=== PATIENT | female | born 1935 | race Caucasian/White ===

== ENCOUNTER 2016-06-04 06:40 | Inpatient (IN) | payer BC, OTHER ==
[2016-05-01 10:40] VITALS: BMI 29.0
--- NOTE | 2016-05-01 11:25 | PAT Medication Instructions ---
Service Date May 01, 2016. Current Home Medication List Aspirin Enteric Coated (Ecotrin Or Generic *), 81 MG PO QAM Atenolol (Tenormin), 50 MG PO QPM Calcium/Vitamin D (Caltrate 600 Plus *), 1 TAB PO QAM Cholecalciferol (Vitamin D3), 1 TAB PO QPM Clonazepam (Klonopin), 1 MG PO TID PRN for Anxiety Denosumab (Prolia), 1 DOSE INJ [id number] Esomeprazole Magnesium (Nexium), 40 MG PO BID Fenofibrate (Tricor ), 134 MG PO QPM Fish Oil (Saunemin-3), 1 CAP PO QAM Ibuprofen (Motrin), 800 MG PO Q8H PRN for PRN Levothyroxine Sodium (Levothyroxine Sodium), 1 TAB PO QAM Lorazepam (Ativan), 0.5 MG PO BID PRN for RN Losartan Potassium (Cozaar), 25 MG PO QPM Nitroglycerin (Nitrostat), 0.4 MG UT PRN Sertraline (Zoloft), 50 MG PO HS Tramadol Hcl (Ultram), 50 MG PO Q6 PRN for Pain Trazodone Hcl (Trazodone), 50 MG PO HS Medication Instructions For Your Scheduled Surgery - Contine as directed: Nitroglycerin (Nitrostat), 0.4 MG UT PRN Denosumab (Prolia), 1 DOSE INJ [id number] - Hold the following medications 2 weeks prior to surgery: Fish Oil (Saunemin-3), 1 CAP PO QAM - Hold the following medications the morning of surgery: Calcium/Vitamin D (Caltrate 600 Plus *), 1 TAB PO QAM Ibuprofen (Motrin), 800 MG PO Q8H PRN for PRN (otherwise okay to continue per surgeon) - Take the following medications the morning of surgery with a sip of water OTHERWISE NOTHING TO EAT OR DRINK AFTER MIDNIGHT: Aspirin Enteric Coated (Ecotrin Or Generic *), 81 MG PO QAM Esomeprazole Magnesium (Nexium), 40 MG PO BID Lorazepam (Ativan), 0.5 MG PO BID PRN Clonazepam (Klonopin), 1 MG PO TID PRN Levothyroxine Sodium (Levothyroxine Sodium), 1 TAB PO QAM Tramadol Hcl (Ultram), 50 MG PO Q6 PRN for Pain (may take if needed up to 4 hours prior to surgery) - Take the following medications as scheduled the night before surgery: Cholecalciferol (Vitamin D3), 1 TAB PO QPM Atenolol (Tenormin), 50 MG PO QPM Trazodone Hcl (Trazodone), 50 MG PO HS Esomeprazole Magnesium (Nexium), 40 MG PO BID Lorazepam (Ativan), 0.5 MG PO BID PRN Clonazepam (Klonopin), 1 MG PO TID PRN Tramadol Hcl (Ultram), 50 MG PO Q6 PRN for Pain - Do not take the following medications the night before surgery: Fenofibrate (Tricor ), 134 MG PO QPM Losartan Potassium (Cozaar), 25 MG PO QPM If you have any questions please call us at [phone] (Elisa Partida PA-C) or [phone] or [phone]
--- NOTE | 2016-05-01 11:58 | DIAGNOSTIC IMAGING REPORT ---
CHEST PREADMISSION(PA/LAT) CLINICAL HISTORY: Preoperative chest COMPARISON STUDY: 07/20/2013 FINDINGS: The heart is enlarged. There is persistent aortic tortuosity. There is a retrocardiac opacity consistent with a hiatal hernia. There is stable left basilar atelectasis/scarring. There is no failure. There is no lobar consolidation. There are no pleural effusions. There is a midthoracic compression which appears old.[ IMPRESSION: No active disease in the chest. Electronically signed by: Atif Contreras M.D. 05/01/2016 11:56 AM
[2016-05-01 12:21] LABS: PROTHROMBIN TIME (PATIENT) 10.6 SECONDS (9.0-12.0)
[2016-05-01 12:27] LABS: BASO ABS # 0.07 K/uL (0-0.2); COMPLETE YES; EOS % 8.5 %; HEMATOCRIT 35.9 % (37-47); IG% 0.1 %; LYMPH % 19.4 %; LYMPH ABS # 1.33 K/uL (1.2-3.4); MEAN CELL VOLUME 86.1 fL (80-100); MEAN CORPUSCULAR HEMOGLOBIN 27.3 pg (25-34); MEAN CORPUSCULAR HGB CONC 31.8 g/dl (32-36); MEAN PLATELET VOLUME 9.5 fL (7.4-10.4); MONO % 7.5 %; NEUT % 63.5 %; PLATELET COUNT 352 K/uL (130-400); RED BLOOD COUNT 4.17 M/uL (4.2-5.4); WHITE BLOOD COUNT 6.84 K/uL (4.8-10.8)
[2016-05-01 12:38] LABS: CALCIUM 9.2 mg/dl (8.5-10.1)
[2016-05-01 12:40] LABS: CREATININE 0.91 mg/dl (0.60-1.20)
[2016-05-01 12:41] LABS: BUN/CREATININE RATIO 27.6 (10-20); POTASSIUM 4.4 mmol/L (3.5-5.1)
[2016-05-01 13:20] LABS: ESTIMATED AVERAGE GLUCOSE 134 mg/dl; HA1C FLAG Normal (Normal)
--- NOTE | 2016-06-03 15:07 | HISTORY & PHYSICAL EXAMINATION ---
DATE OF ADMISSION: 06/04/2016 CHIEF COMPLAINT: Right knee pain. HISTORY OF PRESENT ILLNESS: The patient is a 80-year-old female with known osteoarthritis about her right knee. She has had previous corticosteroid as well as viscosupplementation injections. She continues to have ongoing pain and disability with activities of daily living. She has pain with prolonged weightbearing and standing activities. She has difficulty kneeling, bending or squatting activities. She now desires to proceed with right total knee arthroplasty. PAST MEDICAL HISTORY: Hypertension, thyroid cancer, and acid reflux. PAST SURGICAL HISTORY: Thyroid surgery, appendectomy, and broken arm. MEDICATIONS: Include esomeprazole magnesium 40 mg two times daily, atenolol 50 mg once daily, losartan 25 mg daily, Synthroid 125 mcg daily, trazodone 50 mg at bedtime, sertraline 50 mg daily, tramadol 50 mg q. 6 hours p.r.n. pain, fenofibric acid 135 mg daily, vitamin D 1000 units 2 tablets daily, omega-3 at 1000 mg daily, aspirin 81 mg daily, and Caltrate plus D twice daily. ALLERGIES: No known drug allergies. SOCIAL HISTORY AND REVIEW OF SYSTEMS: Noncontributory. PHYSICAL EXAMINATION: GENERAL: Well-nourished and well-developed elderly female, who appears her stated age. HEENT: Normocephalic and atraumatic, extraocular movements intact, oropharynx pink and moist. NECK: Supple without adenopathy. LUNGS: Clear to auscultation bilaterally. HEART: Regular rate and rhythm. ABDOMEN: Soft, nontender, and nondistended. EXTREMITIES: Upper extremities within normal limits. The right knee has a valgus alignment. She complains primarily of lateral compartment pain. Her range of motion is approximately 0-120 degrees. X-RAYS: X-rays were reviewed. She has a valgus aligned knee. She has bone on bone arthritis of the lateral compartment. ASSESSMENT: Right knee degenerative joint disease. PLAN: Risks versus benefits were discussed. Consent was obtained. The patient's primary care physician is Dr. Roe. Her vegetable trimmer is Dr. Roldan. We will proceed with right total knee arthroplasty upon preoperative workup and medical clearance.
[2016-06-04] VITALS (10 sets, daily range): BP systolic 93–127; BP diastolic 52–84; PULSE 61–78; TEMP 36.4–37; O2SAT 93–97; Ht 165.1 cm; Wt 81.3 kg
[~2016-06-04] VITALS: Ht 165.1 cm; Wt 81.3 kg
[2016-06-04] MEDS: TRANEXAMIC ACID INJ 1,000 MG in SODIUM CHLORIDE 0.9% 100ML 100 ML IV SCH ×2 (06:30→07:58)
[~2016-06-04 06:40] MED LIST: ACETAMINOPHEN 500 MG TAB PO SCH; ASPEC81 PO; ATEN50TA8 PO; CEFAZOLIN 2000 MG/60 ML D5W 60 ML IV SCH; CHOL20007 PO; CLON1TAB3 PO; CLTP PO; CeleBREX 200 MG CAP PO SCH; DEXAMETHASONE 4 MG TAB PO SCH; DNSIS60 INJ; FAMOTIDINE 20 MG TAB PO SCH; FENO134C2 PO; GABAPENTIN 300 MG CAP PO SCH; IBUP-1428 PO; LACTATED RINGER'S 1000ML IV SCH; LACTATED RINGER'S 500 ML IV SCH; LEVO125T4 PO; LORA-741 PO; LOSA1TAB PO; METOCLOPRAMIDE HCL 10 MG TAB PO SCH; MISSING PHYSICIAN SIGNATURE ON ORDER SCH; NITR0.4S UT; NXM/40 PO; OMEG10007 PO; ROPIVACAINE 5MG/ML 30 ML 150 MG, BUPIVACAINE/EPINEPHR 0.5% MPF 30 ML, KETOROLAC TROMETH... INFIL SCH; SERT50TA PO; TRAM-453 PO; TRANEXAMIC ACID INJ 1,000 MG in SODIUM CHLORIDE 0.9% 100ML 100 ML IV SCH; TRAZ50TA35 PO
[2016-06-04] MEDS ORDERED: BUPIVACAINE 0.25% 30 ML VIAL ONE (06:42)
[2016-06-04] MEDS ORDERED: BUPIVACAINE 0.5 % 5 MG/1 ML PF 10ML VIAL ONE (06:42)
--- NOTE | 2016-06-04 07:22 | History & Physical Bridge Note ---
H&P Re-Evaluation Bridge Note: I have examined the patient, reviewed the History & Physical and in the interval since the performance of the History & Physical I have noted the following changes of clinical significance: No changes noted
[2016-06-04] MEDS ORDERED: ONDANSETRON INJ 2 MG/ML 2 ML VIAL ONE (07:24)
[2016-06-04] MEDS ORDERED: PROPOFOL IV EMULSION 10 MG/ML 20 ML VIAL IV ONE (07:24)
[2016-06-04] MEDS ORDERED: MIDAZOLAM HCL 1 MG/ML 2ML VIAL ONE ×2 (07:24)
[2016-06-04] MEDS ORDERED: FENTANYL CITRATE INJ 50 MCG/1 ML 2 ML VIAL ONE (07:24)
[2016-06-04] MEDS ORDERED: LIDOCAINE HCL 2% 2 ML VIAL (20MG/ML) ONE (07:24)
[2016-06-04] MEDS ORDERED: ORTHO JOINT ANESTHETIC ONE (08:14)
[2016-06-04] MEDS ORDERED: KETOROLAC TROMETHAMINE 30 MG/ML VIAL IV. PRN (08:45)
[2016-06-04] MEDS ORDERED: ATROPINE SULFATE 0.1 MG/ML 5ML SYR IV PRN (08:45)
[2016-06-04] MEDS ORDERED: ONDANSETRON INJ 2 MG/ML 2 ML VIAL IV PRN ×2 (08:45→10:00)
[2016-06-04] MEDS ORDERED: HYDROmorphone INJ 2 MG/ML SYR/VIAL IV PRN (08:45)
[2016-06-04] MEDS ORDERED: PHENYLEPHRINE 100MCG/ML 5ML SYR IV PRN (08:45)
[2016-06-04] MEDS ORDERED: EpHEDrine SULFATE INJ 50 MG/ML AMP IV PRN (08:45)
--- NOTE | 2016-06-04 09:15 | [facility] Post Operative Brief Note ---
Immediate Operative Summary Operative Date Jun 04, 2016. Pre-Operative Diagnosis Right knee degenerative joint Disease Post-Operative Diagnosis Right knee degenerative joint Disease Procedure(s) Performed Right Total Knee Arthroplasty Cemented Surgeon Dr. Michael Marquis Seal Delivery Vehicle Officer Surgeon(s) Malik Bangura PA-c Estimated Blood Loss 10 Findings oa and osteoporosis Specimens A: Bone and Tissue right knee Disposition Recovery Room / PACU
--- NOTE | 2016-06-04 09:23 | OPERATIVE REPORT ---
DATE OF OPERATION: 06/04/2016 PREOPERATIVE DIAGNOSIS: Osteoarthritis right knee. POSTOPERATIVE DIAGNOSIS: Osteoarthritis right knee. PROCEDURE: Right total knee arthroplasty. SURGEON: Dr. Marquis. TRANSFER CONTROLLER: Malik Bangura PA-C. ANESTHESIA: Spinal. COMPLICATIONS: None. OPERATION AND FINDINGS: Following induction of spinal anesthesia, the patient's right leg was prepped and draped in the usual sterile manner. Limb was exsanguinated with an Esmarch bandage and tourniquet was inflated to 350 mmHg. A longitudinal incision was made anteriorly. Subcutaneous tissue was sharply dissected. Electrocautery was used for hemostasis. Prepatellar bursa was incised and median parapatellar incision was performed. Patella was everted and the knee was flexed. Fat pad was removed to aid in visualization and the anterior and posterior cruciate ligaments were removed. The medial face of the tibia was cleared of soft tissue first with a Bovie and a Velasquez elevator. This tissue was retracted posteriorly using a blunt Hohmann. A Grande retractor was used to expose the synovium above on the anterior aspect of the femur and this was removed down to bone. The PSI guide was placed on the distal femur and two pins were placed anteriorly and kept in position and two additional pins were placed distally and removed. The distal femoral cutting block was placed in position and the distal femoral cut was used in the +0 setting. Next, the cutting block was removed and the 3 block was placed in the distal end of the femur. Care was taken to ensure appropriate external rotation and feeler gauge was used to ensure no notching would occur. The femoral block was centered on the distal femur and in the medial and lateral direction and was fixed using two bone screws. The gold pins were then removed. The oscillating saw was used to create the bone cuts and the distal femoral cutting block was removed and the reciprocating saw was used to further trim the femoral cuts as well as a deep in the area for the trochlear groove. Next, posterior condyle remnants were removed. Following this, a meniscal clamp and knife were utilized to remove the anterior portion of both medial and lateral meniscus. The proximal tibia PSI guide was placed into position and the proximal tibial cutting guide was screwed into position. The extra medullary alignment guide was utilized to ensure appropriate alignment. The proximal tibia was cut and the proximal tibial cutting block was removed and this bone fragment was removed. The appropriate guide was used to perform the notch cut on the distal femur and a lamina load dispatcher local and a cochlear knife were utilized to finish both medial and lateral meniscectomies to remove any remnants of the posterior or anterior cruciate ligaments. Following this, the distal femoral component was impacted into position and blunt Teri was used to sublux the tibia anteriorly. The proximal tibia was sized and a 3 tibial tray was chosen as the size to be used. This was put into position and appropriate external rotation and a double check with extramedullary alignment guide was performed. The canal for the tibial stem was prepared first with a 17 mm drill and then the punch and a mallet and the trial tibial poly was placed. An 11 was chosen the size to be used. It was brought to extension and the patella was prepared with the patellar reamer. A 33 component was chosen the size to be used. The trial component was placed and knee was taken through a full range of motion and there was found to be no lateral subluxation of the tibia. No lateral release was required. The trials were all removed. The final components were obtained and assembled. Cement was mixed. The knee was thoroughly irrigated and the ortho mix was injected about the knee joint. The final components were cemented into position. After thoroughly suctioning and drying the bone ends, all excess cement was removed. The knee was held in extension while the cement hardened. The wound was irrigated and closed over a Hemovac drain. #1 Vicryl was used to close the extensor mechanism. Subcutaneous tissues closed using 0 Dexon. Skin was closed with tito. Sterile dressing of Adaptic, 4 x 4's, sterile Webril, and Doe was applied. The patient tolerated the procedure well. Recovery room stable. Due to the complex nature of the procedure, the entire surgery was performed with the operational assistance of Malik Bangura PA-C. The observation assistant, under direct supervision, was involved in the actual performance of all aspects of the surgical procedure including hemostasis, tissue retraction and incision, instrument management, patient positioning, and wound closure. I attest to the content of the Intraoperative Record and any orders documented therein. Any exceptio ns are noted below.
[2016-06-04] MEDS ORDERED: MAGNESIUM HYDROXIDE SUSP 30 ML UDC PO PRN (10:00)
[2016-06-04] MEDS ORDERED: MoRPHine SULFATE 2 MG/ML CARP IV PRN (10:00)
[2016-06-04] MEDS ORDERED: BISACODYL 10 MG SUPP PR PRN (10:00)
[2016-06-04] MEDS ORDERED: NITROGLYCERIN 0.4 MG SL PER TAB CHARGE UT PRN (10:00)
[2016-06-04] MEDS ORDERED: TRAMADOL HCL 50 MG TAB PO PRN (10:00)
[2016-06-04] MEDS ORDERED: LORAZEPAM 0.5 MG TAB PO PRN (10:00)
[2016-06-04] MEDS ORDERED: CLONAZEPAM 1 MG TAB PO PRN (10:00)
[2016-06-04] MEDS ORDERED: ZOLPIDEM TARTRATE 5 MG TAB PO PRN (10:00)
[2016-06-04] MEDS ORDERED: ALUMINUM/MAGNESIUM/SIMETH (MAALOX MAX) 30 ML UDC PO PRN (10:00)
[2016-06-04] MEDS ORDERED: DiphenhydrAMINE HCL 50 MG/ML VIAL IV PRN (10:00)
--- NOTE | 2016-06-04 10:10 | DIAGNOSTIC IMAGING REPORT ---
TWO VIEWS RIGHT KNEE CLINICAL HISTORY: Postoperative examination. FINDINGS: AP and crosstable lateral portable views of the right knee are obtained. A right knee arthroplasty is in near anatomic alignment. There has been undersurface remodeling of the patella. No acute fracture is seen. There are expected postoperative changes around the knee including skin clips, a surgical drain, soft tissue edema, and subcutaneous gas. IMPRESSION: Expected postoperative changes status post right knee arthroplasty. No acute fracture is seen. Electronically signed by: Donovan Chester M.D. 06/04/2016 10:08 AM Dictated Date/Time: 06/04/2016 10:08 AM
--- NOTE | 2016-06-04 10:28 | Anesthesiology Progress Note ---
Anesthesia Post Op Note Date & Time Jun 04, 2016 at 10:28 Vital Signs Pain Intensity: 0 Vital Signs Past 12 Hours Date Time Temp Pulse Resp B/P Pulse Ox O2 Delivery O2 Flow Rate FiO2 06/04/16 10:25 36.4 57 14 100/62 94 Nasal Cannula 2 06/04/16 10:19 58 16 06/04/16 10:19 60 16 93 06/04/16 10:18 105/60 06/04/16 10:14 56 14 06/04/16 10:14 55 14 96 06/04/16 10:13 113/63 06/04/16 10:09 58 15 93 06/04/16 10:09 57 15 06/04/16 10:08 59 15 06/04/16 10:08 59 15 06/04/16 10:08 59 15 120/71 91 06/04/16 10:08 59 15 120/71 91 06/04/16 10:03 59 15 06/04/16 10:03 57 15 114/62 96 06/04/16 10:03 59 15 06/04/16 10:03 57 15 114/62 96 06/04/16 09:58 64 16 123/66 92 06/04/16 09:58 65 16 06/04/16 09:58 64 16 123/66 92 06/04/16 09:58 65 16 06/04/16 09:53 59 12 06/04/16 09:53 59 12 130/62 96 06/04/16 09:53 59 12 06/04/16 09:53 59 12 130/62 96 06/04/16 09:50 134/71 06/04/16 09:50 134/71 06/04/16 09:48 65 23 100 06/04/16 09:48 65 23 100 06/04/16 09:48 65 23 06/04/16 09:48 65 23 06/04/16 09:48 36.0 65 16 132/82 95 Mask 10 06/04/16 07:12 36.5 69 20 127/84 95 Room Air Notes Mental Status: alert / awake / arousable, participated in evaluation Pt Amnestic to Procedure: Yes Nausea / Vomiting: adequately controlled Pain: adequately controlled Airway Patency, RR, SpO2: stable & adequate BP & HR: stable & adequate Hydration State: stable & adequate Anesthetic Complications: no major complications apparent
[2016-06-04] MEDS ORDERED: BACITRACIN 50000 UNIT VIAL IR ONE (10:50)
[2016-06-04] MEDS ORDERED: MoRPHine SULFATE 4 MG/ML 1 ML CARP\\VIAL IV PRN (13:00)
[2016-06-04] MEDS ORDERED: MoRPHine SULFATE 10 MG/ML CARP/VIAL IV PRN (13:00)
[2016-06-04] MEDS: D5W AND 1/2NSS + 20MEQ KCL 1,000 ML IV SCH ×2 (13:27→22:23)
[2016-06-04] MEDS: ACETAMINOPHEN 500 MG TAB PO SCH ×2 (14:52→21:37)
[2016-06-04] MEDS: CEFAZOLIN IV 2,000 MG in DEXTROSE 5% 50ML 50 ML IV SCH ×2 (16:35→23:45)
[2016-06-04] MEDS: FERROUS GLUCONATE 324 MG TAB PO SCH (18:13)
[2016-06-04] MEDS: LOSARTAN POTASSIUM 25 MG TAB PO SCH (21:00)
[2016-06-04] MEDS: SENNA 8.6 MG TAB PO SCH (21:32)
[2016-06-04] MEDS: OXYCODONE HCL 10 MG TABCR (OXYCONTIN) PO SCH (21:32)
[2016-06-04] MEDS: DOCUSATE SODIUM 100 MG CAP PO SCH (21:34)
[2016-06-04] MEDS: ASPIRIN 81 MG ECTAB PO SCH (21:36)
[2016-06-04] MEDS: SERTRALINE HCL 50 MG TAB PO SCH (21:38)
[2016-06-04] MEDS: TRAZODONE HCL 50 MG TAB PO SCH (22:07)
[2016-06-05 03:16] VITALS: BP 118/69; PULSE 70; TEMP 36.6; O2SAT 93
[2016-06-05] MEDS: LEVOTHYROXINE 125 MCG TAB PO SCH (05:35)
[2016-06-05 06:10] LABS: HEMATOCRIT 24.8 % (37-47); MEAN CELL VOLUME 86.4 fL (80-100); MEAN CORPUSCULAR HEMOGLOBIN 27.9 pg (25-34); MEAN CORPUSCULAR HGB CONC 32.3 g/dl (32-36); MEAN PLATELET VOLUME 9.1 fL (7.4-10.4); PLATELET COUNT 253 K/uL (130-400); RED BLOOD COUNT 2.87 M/uL (4.2-5.4); WHITE BLOOD COUNT 11.47 K/uL (4.8-10.8)
[2016-06-05] MEDS: ACETAMINOPHEN 500 MG TAB PO SCH ×3 (06:12→22:00)
[2016-06-05 06:41] LABS: BUN/CREATININE RATIO 22.4 (10-20); CALCIUM 8.1 mg/dl (8.5-10.1); CREATININE 1.3 mg/dl (0.60-1.20); POTASSIUM 4.2 mmol/L (3.5-5.1)
[2016-06-05 07:07] VITALS: BP 122/67; PULSE 85; TEMP 36.8; O2SAT 92
[2016-06-05] MEDS: PANTOprazole SOD 40 MG TAB PO SCH (07:48)
--- NOTE | 2016-06-05 08:08 | Orthopedic Progress Note ---
Orthopedic Progress Note Date of Service Jun 05, 2016. Subjective Post OP Day: 1 Reports: feeling well Objective N/V intact, dressing C/D/I, toes mobile Date Time Temp Pulse Resp B/P Pulse Ox O2 Delivery O2 Flow Rate FiO2 06/05/16 07:07 36.8 85 19 122/67 92 Room Air 06/05/16 03:16 36.6 70 18 118/69 93 Room Air 06/04/16 23:30 Room Air 06/04/16 23:15 37.0 68 16 93/52 93 Room Air 06/04/16 21:44 71 98/60 06/04/16 19:47 36.7 78 16 105/58 93 Room Air 06/04/16 16:30 96 Nasal Cannula 1.0 06/04/16 15:41 36.7 74 16 97/56 96 Nasal Cannula 2.0 06/04/16 13:25 36.6 64 16 94/56 94 2.0 06/04/16 12:25 68 16 106/67 97 2.0 06/04/16 11:55 36.4 61 16 108/66 96 4.0 06/04/16 11:25 Nasal Cannula 2.0 06/04/16 11:25 36.4 61 16 111/68 94 Nasal Cannula 2.0 06/04/16 11:25 Nasal Cannula 2.0 06/04/16 11:13 96/62 06/04/16 11:12 59 18 93 06/04/16 11:12 59 18 06/04/16 11:07 59 18 96 06/04/16 11:07 58 18 06/04/16 11:02 58 16 06/04/16 11:02 58 16 96 06/04/16 11:01 101/63 06/04/16 10:58 89/54 06/04/16 10:55 59 17 92 06/04/16 10:55 60 17 06/04/16 10:50 59 18 06/04/16 10:50 59 18 91 06/04/16 10:45 60 16 06/04/16 10:45 59 16 92 06/04/16 10:43 95/57 06/04/16 10:40 61 15 93 06/04/16 10:40 61 15 06/04/16 10:35 59 16 92 06/04/16 10:35 58 16 06/04/16 10:30 59 15 06/04/16 10:30 59 15 93 06/04/16 10:28 102/60 06/04/16 10:25 55 15 94 06/04/16 10:25 36.4 57 14 100/62 94 Nasal Cannula 2 06/04/16 10:25 57 15 06/04/16 10:24 100/62 06/04/16 10:20 61 15 06/04/16 10:20 59 15 94 06/04/16 10:19 58 16 06/04/16 10:19 60 16 93 06/04/16 10:18 105/60 06/04/16 10:14 56 14 06/04/16 10:14 55 14 96 06/04/16 10:13 113/63 06/04/16 10:09 58 15 93 06/04/16 10:09 57 15 06/04/16 10:08 59 15 06/04/16 10:08 59 15 06/04/16 10:08 59 15 120/71 91 06/04/16 10:08 59 15 120/71 91 06/04/16 10:03 59 15 06/04/16 10:03 57 15 114/62 96 06/04/16 10:03 59 15 06/04/16 10:03 57 15 114/62 96 06/04/16 09:58 64 16 123/66 92 06/04/16 09:58 65 16 06/04/16 09:58 64 16 123/66 92 06/04/16 09:58 65 16 06/04/16 09:53 59 12 06/04/16 09:53 59 12 130/62 96 06/04/16 09:53 59 12 06/04/16 09:53 59 12 130/62 96 06/04/16 09:50 134/71 06/04/16 09:50 134/71 06/04/16 09:48 65 23 100 06/04/16 09:48 65 23 100 06/04/16 09:48 65 23 06/04/16 09:48 65 23 06/04/16 09:48 36.0 65 16 132/82 95 Mask 10 Laboratory Results 24 Hours: Test 06/05/16 05:55 Hematocrit 24.8 % Hemoglobin 8.0 g/dL Assessment & Plan Assessment: 80 yo female stable POD #1 s/p right TKA, acute blood loss anemia, asympto Plan: 1. Med management- check H/H tomorrow 2. DVT prophylaxis- ASA, TEDs, SCDs 3. PT/OT 4. D/C planning- home w/ HH
--- NOTE | 2016-06-05 08:49 | Anesthesiology Progress Note ---
Anesthesia Post Op Note Date & Time Jun 05, 2016 at 08:49 Vital Signs Pain Intensity: 0.0 Vital Signs Past 12 Hours Date Time Temp Pulse Resp B/P Pulse Ox O2 Delivery O2 Flow Rate FiO2 06/05/16 07:07 36.8 85 19 122/67 92 Room Air 06/05/16 03:16 36.6 70 18 118/69 93 Room Air 06/04/16 23:30 Room Air 06/04/16 23:15 37.0 68 16 93/52 93 Room Air 06/04/16 21:44 71 98/60 Notes Mental Status: alert / awake / arousable, participated in evaluation Pt Amnestic to Procedure: Yes Nausea / Vomiting: adequately controlled Pain: adequately controlled Airway Patency, RR, SpO2: stable & adequate BP & HR: stable & adequate Hydration State: stable & adequate Neuraxial Anesthesia: was administered, sensory block resolved Anesthetic Complications: no major complications apparent
[2016-06-05] MEDS: D5W AND 1/2NSS + 20MEQ KCL 1,000 ML IV SCH (09:00)
[2016-06-05] MEDS: DOCUSATE SODIUM 100 MG CAP PO SCH ×2 (09:10→20:52)
[2016-06-05] MEDS: ASPIRIN 81 MG ECTAB PO SCH ×2 (09:10→20:56)
[2016-06-05] MEDS: MULTIVITAMIN TAB PO SCH (09:10)
[2016-06-05] MEDS: CALCIUM 600MG + VIT D 400 IU TAB PO SCH (09:10)
[2016-06-05] MEDS: FERROUS GLUCONATE 324 MG TAB PO SCH ×3 (09:10→18:08)
[2016-06-05] MEDS: OXYCODONE HCL 10 MG TABCR (OXYCONTIN) PO SCH ×2 (09:14→21:01)
[2016-06-05] MEDS ORDERED: NURSING VERBAL MED ORDER ONE (09:30)
[2016-06-05 11:11] VITALS: BP 114/68; PULSE 74; TEMP 36.9; O2SAT 92
[2016-06-05] MEDS: OXYCODONE HCL IR 5 MG TAB (IMMEDIATE RELEASE) PO PRN ×3 (12:27→23:54)
[2016-06-05 15:22] VITALS: BP 115/67; PULSE 79; TEMP 37.1; O2SAT 96
[2016-06-05] MEDS: LOSARTAN POTASSIUM 25 MG TAB PO SCH (20:55)
[2016-06-05] MEDS: SENNA 8.6 MG TAB PO SCH (20:56)
[2016-06-05] MEDS: TRAZODONE HCL 50 MG TAB PO SCH (20:57)
[2016-06-05] MEDS: SERTRALINE HCL 50 MG TAB PO SCH (20:57)
[2016-06-05 20:58] VITALS: BP 125/71; PULSE 83
[2016-06-05] MEDS ORDERED: CHOLECALCIFEROL 1000 INTER.UNIT TAB PO SCH (21:00)
[2016-06-05 23:35] VITALS: BP 116/66; PULSE 75; TEMP 37; O2SAT 92
[2016-06-06 06:00] VITALS: BP 119/61; PULSE 73; TEMP 37.2; O2SAT 93
[2016-06-06] MEDS: LEVOTHYROXINE 125 MCG TAB PO SCH (06:02)
[2016-06-06] MEDS: ACETAMINOPHEN 500 MG TAB PO SCH (06:03)
[2016-06-06] MEDS: OXYCODONE HCL IR 5 MG TAB (IMMEDIATE RELEASE) PO PRN ×2 (07:42→12:07)
[2016-06-06] MEDS: DOCUSATE SODIUM 100 MG CAP PO SCH (07:42)
[2016-06-06] MEDS: ASPIRIN 81 MG ECTAB PO SCH (07:42)
[2016-06-06] MEDS: CALCIUM 600MG + VIT D 400 IU TAB PO SCH (07:42)
[2016-06-06] MEDS: PANTOprazole SOD 40 MG TAB PO SCH (07:42)
[2016-06-06] MEDS: FERROUS GLUCONATE 324 MG TAB PO SCH ×2 (07:42→11:55)
[2016-06-06] MEDS: MULTIVITAMIN TAB PO SCH (07:43)
[2016-06-06 08:12] LABS: HEMATOCRIT 25.5 % (37-47)
[2016-06-06 08:42] VITALS: BP 130/75; PULSE 66; TEMP 37.1; O2SAT 94
[2016-06-06 09:44] VITALS: O2SAT 94
[2016-06-06] MEDS: OXYCODONE HCL 10 MG TABCR (OXYCONTIN) PO SCH (10:00)
[2016-06-06] MEDS ORDERED: ASPEC81 PO (11:18)
[2016-06-06] MEDS ORDERED: ACET-1138 PO (11:18)
[2016-06-06] MEDS ORDERED: RXC5 PO (11:18)
[2016-06-06] MEDS ORDERED: ONDA8TAB6 PO (11:18)
[2016-06-06] MEDS ORDERED: OXYSR10 PO (11:18)
--- NOTE | 2016-06-06 11:19 | Discharge Instructions ---
Discharge Instructions Admission Reason for Admission: Right Knee Osteoarthritis Discharge Discharge Diagnosis / Problem: right total knee arthroplasty Discharge Goals Goal(s): Decrease discomfort, Improve function, Increase independence, Therapeutic intervention Activity Recommendations Activity Limitations: per Instructions/Follow-up section ACTIVITY RECOMMENDATIONS: SELF CARE INSTRUCTIONS AFTER TOTAL KNEE REPLACEMENT A. You may need to continue a physical therapy program after discharge from the hospital. There are several options available to you. Your doctor will assist you in selecting the best one for you. 1. An out-patient facility 2 to 3 times a week for therapy or home therapy. 2. Continue working on all exercises taught to you in the hospital. Your goals should be to increase bending of your knee to 90 degrees and beyond and to fully straighten your knee. B. You may progress at your own pace from walking with a walker or crutches to a cane; then to no assistive devices. C. Make walking a part of your daily routine. Be up as much as comfortable with rest periods throughout the day. Rest with leg elevation is very important. Use the ice wrap frequently for the first 3-4 weeks. D. There are no restrictions on activities. You may ride in a car, shop, participate in rag cutting machine operator and all social activities. E. Wear the long elastic stockings (DOMNEICA hose) 20 hours a day for 2 weeks after surgery. They can be removed several times a day for laundering and for a bath. F. You may shower, no tub baths until cleared by your doctor. SPECIAL CARE INSTRUCTIONS: VERY IMPORTANT TO READ AND REVIEW A. There are a few signs you need to watch for after you are home. Call [facility] if you notice any of the followin. Increased severe knee pain. Some pain is expected especially when you exercise. 2. Increased swelling in your leg or knee; pain or swelling of the calf muscle in either lower leg. 3. Any fluid drainage from the incision. 4. Shortness of breath or chest pain. B. Please call [facility] at if you have any concerns or questions about your operation or recovery. The doctor or his nurse will return your call promptly. C. You must take antibiotics before dental work, bladder, bowel or other surgery. Your doctor will provide you with a permanent care to carry describing this precaution. IMPORTANT: * REMEMBER TO TAKE ASPIRIN, 81 MG, TWICE DAILY FOR 4 WEEKS UNLESS OTHERWISE DIRECTED. THIS IS YOUR BLOOD THINNER. * HIGH RISK PATIENTS MAY BE PRESCRIBED A STRONGER BLOOD THINNER. THIS WILL BE PROVIDED AT DISCHARGE. * CALL IF INCREASED PAIN, REDNESS, DRAINAGE OR FEVER GREATER THAT 101. * WEAR DOMENICA HOSE 20 HOURS PER DAY FOR 2 WEEKS. * YOU MAY HAVE A LARGE BAND-AID LIKE DRESSING (SILVERON). THIS WILL REMAIN ON YOUR INCISION FOR 7 DAYS, THEN CAN BE REMOVED. IF INCISION IS LEAKING THROUGH DRESSING, CALL THE OFFICE . FOLLOW UP VISIT: If appointment is not already scheduled: Please call [facility] to make a follow-up appointment for 2 weeks after your surgery at . . Current Hospital Diet Patient's current hospital diet: Regular Diet Discharge Diet Recommended Diet: Regular Diet Procedures Procedures Performed: Right Total Knee Arthroplasty Cemented Pending Studies Studies pending at discharge: no Laboratory Results Hemoglobin A1c Test 05/01/16 11:30 Range/Units Estimated Average Glucose 134 mg/dl Hemoglobin A1c 6.3 H 4.5-5.6 % Medical Emergencies . Who to Call and When: Medical Emergencies: If at any time you feel your situation is an emergency, please call 911 immediately. . Non-Emergent Contact Non-Emergency issues call your: Primary Care Provider . "Provider Documentation" section prepared by Kamille Marks. VTE Core Measure Inpt VTE Proph given/why not?: Other Anticoagulation, T.E.D. Stockings, SCD's
[2016-06-06 11:25] VITALS: BP 130/75; PULSE 66; TEMP 37.1; O2SAT 94
--- NOTE | 2016-06-06 13:25 | Orthopedic Progress Note ---
Orthopedic Progress Note Date of Service Jun 06, 2016. Subjective Post OP Day: 2 Reports: feeling well, pain controlled w PO medications, Denies: SOB, calf pain , nausea / vomiting Objective calves soft nontender, N/V intact, capillary refill less than 2 sec., dressing C /D/I, A&O x3, toes mobile Date Time Temp Pulse Resp B/P Pulse Ox O2 Delivery O2 Flow Rate FiO2 06/06/16 11:25 37.1 66 18 94 Nasal Cannula 06/06/16 09:44 94 Room Air 06/06/16 08:42 37.1 66 18 130/75 94 Room Air 06/06/16 08:00 Room Air 06/06/16 06:00 37.2 73 14 119/61 93 Room Air 06/06/16 00:30 Room Air 06/05/16 23:35 37.0 75 16 116/66 92 Room Air 06/05/16 20:58 83 125/71 06/05/16 15:30 Room Air 06/05/16 15:22 37.1 79 16 115/67 96 Room Air Laboratory Results 24 Hours: Test 06/06/16 07:27 Hematocrit 25.5 % Hemoglobin 8.2 g/dL Assessment & Plan Assessment: 80 yo female stable POD #2 s/p right TKA, acute blood loss anemia, asympto Plan: 1. Med management- 2. DVT prophylaxis- ASA, TEDs, SCDs 3. PT/OT 4. D/C planning- home w/ HH Inhouse Planning Pain Management: Oxycontin, Tylenol #3, Oxy IR DVT Prophylaxis: TEDs, SCDs, ASA Discharge Planning Discharge Planning: home with home health Pain Management: Oxycontin, PO Tylenol, Oxy IR DVT Prophylaxis: TEDs, ASA Therapy: Physical Therapy
--- NOTE | 2016-06-08 17:04 | DISCHARGE SUMMARY ---
DISCHARGE DIAGNOSIS: Degenerative joint disease, right knee. SECONDARY DIAGNOSES: Hypertension, thyroid cancer, GERD. CONSULTS: None. COMPLICATIONS: None. PROCEDURES: Right total knee arthroplasty performed by Dr. Marquis on 06/04/2016. BRIEF HISTORY: As dictated in history and physical. HOSPITAL SUMMARY: The patient was admitted on the above date and had the above-noted surgery performed which she tolerated well. On the first postoperative day, she was feeling well and had no complaints. Neurovascularly intact. Dressings clean, dry and intact. Toes were mobile. Vital signs were stable. She was afebrile. Hemoglobin was 8.0. She was started on physical therapy protocol and continued on DVT prophylaxis and pain management. Plans were to recheck her hemoglobin the following day. By her second postoperative day, she was feeling well, pain was controlled and she had no complaints. Calves were soft, nontender, neurovascularly intact. Dressings clean, dry and intact. Toes were mobile. Vital signs were stable. She was afebrile. Hemoglobin was 8.2 and remaining stable. She was progressing well with physical therapy and it was felt that she could be discharged to home with home health services on 06/06/2016. For further review, please see chart. LAB AND X-RAY DATA: As per chart. DISCHARGE INSTRUCTIONS: The patient was discharged to home in satisfactory condition on 06/06/2016. DIET: Regular. ACTIVITY: Follow TK instruction sheets and special care instructions as noted. Follow up with Dr. Marquis in 2 weeks. The patient to call for appointment if one has not been made for you. DISCHARGE MEDICATIONS: Acetaminophen 1000 mg p.o. q. 8 hours, aspirin 81 mg p.o. b.i.d., Zofran 8 mg p.o. q. 8 hours p.r.n., OxyContin 10 mg p.o. q. 12 hours, oxycodone 5-10 mg p.o. q. 4 hours p.r.n. Resume home meds as listed. Once b.i.d. dosing of aspirin is finished in 30 days you may resume your once daily dosing. Stop taking ibuprofen and tramadol.
== END 2016-06-06 13:22 | disposition home health service (06) | DRG 470 ==
LOC: ENRESERVDT → ENRESERVTM → C.ACU 06:40 → C.MSN 07:00
PROC: 0SRC0J9 Replacement of Right Knee Joint with Synthetic Substitute, Cemented, Open Approach (ICD-10-PCS; principal; 2016-06-04 08:30)
DX: M17.11 Unilateral primary osteoarthritis, right knee (principal); D62 Acute posthemorrhagic anemia; I10 Essential (primary) hypertension; K21.9 Gastro-esophageal reflux disease without esophagitis; M54.5 Low back pain; E66.9 Obesity, unspecified; G47.33 Obstructive sleep apnea (adult) (pediatric); E78.5 Hyperlipidemia, unspecified; E03.9 Hypothyroidism, unspecified; F41.9 Anxiety disorder, unspecified; F32.9 Major depressive disorder, single episode, unspecified; Z85.850 Personal history of malignant neoplasm of thyroid; Z79.82 Long term (current) use of aspirin; Z68.29 Body mass index [BMI] 29.0-29.9, adult; Z79.1 Long term (current) use of non-steroidal anti-inflammatories (NSAID); Z79.899 Other long term (current) drug therapy; Z79.891 Long term (current) use of opiate analgesic

== ENCOUNTER → 2016-10-21 | Outpatient (CLI) | payer BC ==
[~2016-10-21] MED LIST changes: +ACET-1138 PO; -ACETAMINOPHEN 500 MG TAB PO SCH; -CEFAZOLIN 2000 MG/60 ML D5W 60 ML IV SCH; -CeleBREX 200 MG CAP PO SCH; -DEXAMETHASONE 4 MG TAB PO SCH; -FAMOTIDINE 20 MG TAB PO SCH; -GABAPENTIN 300 MG CAP PO SCH; -IBUP-1428 PO; -LACTATED RINGER'S 1000ML IV SCH; -LACTATED RINGER'S 500 ML IV SCH; -LEVO125T4 PO; +LEVO125T5 PO; -METOCLOPRAMIDE HCL 10 MG TAB PO SCH; -MISSING PHYSICIAN SIGNATURE ON ORDER SCH; +ONDA8TAB6 PO; +OXYSR10 PO; -ROPIVACAINE 5MG/ML 30 ML 150 MG, BUPIVACAINE/EPINEPHR 0.5% MPF 30 ML, KETOROLAC TROMETH... INFIL SCH; +RXC5 PO; -TRAM-453 PO; -TRANEXAMIC ACID INJ 1,000 MG in SODIUM CHLORIDE 0.9% 100ML 100 ML IV SCH
--- NOTE | 2016-10-21 11:25 | DIAGNOSTIC IMAGING REPORT ---
ULTRASOUND RIGHT VENOUS DOPP LOWER EXT UNILAT CLINICAL HISTORY: Right leg pain and swelling COMPARISON STUDY: No previous studies for comparison. FINDINGS: Real-time and color flow Doppler imaging were performed. Flow was seen within the femoral, popliteal and calf veins with no intraluminal thrombus demonstrated. The saphenous vein is patent. IMPRESSION: No evidence of right lower extremity DVT. Electronically signed by: Atif Contreras M.D. 10/21/2016 11:24 AM Dictated Date/Time: 10/21/2016 11:23 AM
== END | disposition home or self-care (01) ==
LOC: C.ULTR 10:31
PROVIDERS: ATTEND Nurse Practitioner
DX: M79.661 Pain in right lower leg (principal); M79.89 Other specified soft tissue disorders

== ENCOUNTER → 2017-01-28 | Outpatient (CLI) | payer BC ==
[~2017-01-28] MED LIST changes: +LEVO125T4 PO; -LEVO125T5 PO; -ONDA8TAB6 PO
--- NOTE | 2017-01-28 15:58 | DIAGNOSTIC IMAGING REPORT ---
BONE SCAN 3 PHASE LIMITED CLINICAL HISTORY: Right knee pain and swelling status post total knee arthroplasty COMPARISON STUDY: Conventional radiographic study dated 06/04/2016 FINDINGS: The patient was injected with 25.3 mCi of technetium 99m MDP. A vascular sequence centered on the knees was performed. There is minimal right knee hyperemia. Blood pool images demonstrate very slight increased activity surrounding the right knee prosthesis. Delayed images demonstrate mild increased activity at the level of the tibial prosthesis. While the findings could indicate loosening, this diagnosis is difficult to make sonographically in a patient of this age, having undergone surgery within the past 12 months. IMPRESSION: 1. Very subtle right knee hyperemia and increased blood pool activity. Mild increased activity subjacent to the right tibial component. This is a nonspecific finding given the timeframe of surgery, but could indicate loosening. Electronically signed by: Atif Contreras M.D. 01/28/2017 3:57 PM Dictated Date/Time: 01/28/2017 3:53 PM
== END | disposition home or self-care (01) ==
LOC: C.NUCL 12:12
DX: Z96.651 Presence of right artificial knee joint (principal)

== ENCOUNTER → 2017-01-29 | Outpatient (CLI) | payer BC | END | disposition home or self-care (01) | LOC: C.LAB 12:20 | DX: Z96.651 Presence of right artificial knee joint (principal) ==

== ENCOUNTER 2020-09-18 12:37 | Inpatient (IN) ==
[2020-09-18] MEDS ORDERED: SODIUM CHLORIDE 0.9% 1000ML 1,000 ML IV SCH (13:30)
--- NOTE | 2020-09-18 13:32 | XRay Report ---
XR chest 1V portable HISTORY: 84 years-old Female weakness acute weakness COMPARISON: Chest radiograph 10/07/2018 TECHNIQUE: Portable AP view of the chest FINDINGS: Cardiac silhouette is enlarged. Hiatal hernia. No pneumothorax, pleural effusion, airspace consolidat ion or overt edema. Unchanged mild chronic partial coarsening of the lung bases. Degenerative changes of the shoulders and spine. IMPRESSION: 1. Cardiomegaly without acute process. 2. Hiatal hernia. ACT 112: Negative or not required by law. The above report was generated using voice recognition software. It may contain grammatical, syntax o r spelling errors. Electronically signed by: Fabricio Desouza M.D. 09/18/2020 1:31 PM
[2020-09-18 13:33] LABS: Appearance Urine Clear (Clear); Bacteria Urine Automated Negative (Negative); Bilirubin Urine Negative (Negative); Blood Urine Negative (Negative); Color Urine Dark Yellow; Epithelial Cell Urine Auto >30 /lpf (0-5); Glucose Urine UA Negative (Negative); Ketones Urine Negative (Negative); Leukocyte Esterase Urine Trace (Negative); Nitrite Urine Negative (Negative); Protein Urine Negative (Negative); RBC Urine Automated 0-4 /hpf (0-4); Specific Gravity Urine 1.021 (1.000-1.030); Urobilinogen Urine Negative (Negative)
[2020-09-18 14:05] LABS: Basophils # (auto) 0.03 K/uL (0-0.2); Basophils % (auto) 0.5 %; Eosinophils # (auto) 0.34 K/uL (0-0.5); Eosinophils % (auto) 5.5 %; Hematocrit (blood only) 37.1 % (37-47); Hemoglobin 11.8 g/dL (12.0-16.0); Immature Granulocytes # (auto) 0.01 K/uL (0.00-0.02); Immature Granulocytes % (auto) 0.2 %; Lymphocytes # (auto) 1.29 K/uL (1.2-3.4); Lymphocytes % (auto) 20.9 %; Mean Corpuscular Hemoglobin 29.1 pg (25-34); Mean Corpuscular Hgb Conc 31.8 g/dL (32-36); Mean Corpuscular Volume 91.4 fL (80-100); Mean Platelet Volume 9.4 fL (7.4-10.4); Monocytes # (auto) 0.51 K/uL (0.11-0.59); Monocytes % (auto) 8.3 %; Neutrophils # (auto) 3.99 K/uL (1.4-6.5); Neutrophils % (auto) 64.6 %; Platelet Count 346 K/uL (130-400); RDW Coefficient of Variation 14.1 % (11.5-14.5); RDW Standard Deviation 47.1 fL (36.4-46.3); Red Blood Count 4.06 M/uL (4.2-5.4); White Blood Count 6.17 K/uL (4.8-10.8)
[2020-09-18 14:31] LABS: Alanine Aminotransferase 24 U/L (12-78); Albumin Level 3.9 gm/dl (3.4-5.0); Aspartate Aminotransferase 25 U/L (15-37); BUN Creatinine Ratio 28.6 (10-20); Blood Urea Nitrogen 32 mg/dl (7-18); Calcium 10.1 mg/dl (8.5-10.1); Carbon Dioxide 27 mmol/L (21-32); Chloride 108 mmol/L (98-107); Creatinine Clr Calc Pharmacy 38.7 ml/min; Est GFR (African American) 53.6 ml/min; Est GFR (Non-African American) 46.2 ml/min; Glucose 89 mg/dl (70-99); Magnesium 2.2 mg/dl (1.8-2.4); Potassium 4.5 mmol/L (3.5-5.1); Sodium 141 mmol/L (136-145)
[2020-09-18 14:41] LABS: Albumin Globulin Ratio 1.2 (0.9-2); Alkaline Phosphatase 72 U/L (45-117); Bilirubin,Total 0.3 mg/dl (0.2-1); Globulin 3.4 gm/dl (2.5-4.0); Total Protein 7.3 gm/dl (6.4-8.2); Troponin I < 0.015 ng/ml (0-0.045)
[2020-09-18] MEDS ORDERED: OPTIRAY 350 500ml IV ONE (14:53)
--- NOTE | 2020-09-18 15:09 | CT Scan Report ---
CT angio neck with con CLINICAL HISTORY: Acute stroke like symptoms. Right-sided facial droop. Patient listing to one side w hen walking. COMPARISON STUDY: MR angiographic study performed July 2013 TECHNIQUE: CT angiography was performed from the aortic arch to the skull base. MIP imaging was perfo rmed. The patient was scanned in a dynamic helical fashion during intravenous administration of 111 c c of Optiray. A dose lowering technique was utilized adhering to the principles of ALARA. CT DOSE: Technique: CT angiogram of the carotid and vertebral arteries was obtained using intravenous contrast and 3-D reconstruction. NASCET criteria was utilized. Findings: There is a 7 mm right apical bleb. There are moderately advanced degenerative changes within the cervical spine with multiple degenerati ve subluxations. The right carotid revealed no evidence of aneurysm and no evidence of dissection. There is no evidenc e of hemodynamic significant stenosis. The left carotid revealed no evidence of hemodynamic significant stenosis. There is no evidence of an eurysm. There is no evidence of dissection. There is no evidence of hemodynamically significant vertebral stenosis. There is no evidence of verte bral dissection. IMPRESSION: No evidence of hemodynamically significant carotid or vertebral artery stenosis. No evidence of disse ction. ACT 112: Negative or not required by law. Electronically signed by: Atif Contreras M.D. 09/18/2020 3:07 PM
--- NOTE | 2020-09-18 15:15 | CT Scan Report ---
CT angio head wo/w CLINICAL HISTORY: CVA sx. Right facial droop. COMPARISON STUDY: MRI of the brain and MRA of the head July 21, 2013. Head CT July 20, 2013. TECHNIQUE: Unenhanced and arterial phase imaging of the head was performed. Intravenous injection of 111 cc of Optiray 320 IV was uneventful. Sagittal and coronal reconstructions were viewed as well as maximal intensity projections on an independent 3-D workstation. Automated exposure control was utili zed for the study. A dose lowering technique was utilized adhering to the principles of ALARA. FINDINGS: No acute intracranial hemorrhage, midline shift or mass effect is present. Ventricular syst em is stable. White matter hypodensities suggest small vessel disease. There are no findings to sugge st acute dural sinus thrombosis or acute territorial infarct. A 7 mm hyperdensity within the white ma tter of the right frontal lobe shown on axial image of is unchanged since CT of July 20, 2013. This may reflect calcifications. This is of doubtful significance given stability. The bilateral M1, M2, A1 and A2 segments are patent. There is mild stenosis of the proximal left M1 segment. 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 There is persistence of the right posterior cerebral artery. Posterior circulation is intact. No central vessel occlusion is noted. No additional intracranial aneurysms are identified . IMPRESSION: 1. No acute intracranial findings. 2. White matter hypodensities suggestive of small vessel disease. 3. Stable 7 mm hyperdense focus within the right frontal lobe which may reflect calcifications. This is of doubtful significance. 4. No central vessel occlusion. 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 ACT 112: Negative or not required by law. Electronically signed by: Luis Rosen M.D. 09/18/2020 3:13 PM
--- NOTE | 2020-09-18 15:20 | Emergency Department Note ---
History of Present Illness General Chief complaint: Stroke/CVA Symptoms Stated complaint: HAD DR BRYAN/THINKS PT HAD A STROKE Source: patient, family (Son at the bedside), RN notes reviewed and old records reviewed (PCP office notes) Mode of arrival: ambulatory Limitations: no limitations History of Present Illness Provider complaint: Stroke sx, sent by PCP Maximum Pain Intensity: 0 This pt is an 84 yo female who presents to the ED with c/o memory and weakness issues since a fall/syncopal episode in August 2020. Pt states she fell onto her back, but definitely hit her head at that time. She has been struggling sine that time. She has been seeing Dr. Roe, her PCP and having med nathaly nges/rechecks since then, but today was noted to have a L facial droop. Pt has been incontinent of urine occasionally, this is new. She denies recurrent falls but states she has been noting a lean to the R when walking today. No fevers, CP, cough, vomiting, diarrhea. Home Medications Medication Instructions Recorded Confirmed Type aspirin [Aspir-81] 81 mg PO QPM 10/07/18 09/18/20 History fenofibric acid (choline) 135 mg PO QPM 10/07/18 09/18/20 History meclizine 12.5 mg PO TID PRN 10/07/18 09/18/20 History pantoprazole 40 mg PO BID 10/07/18 09/18/20 History sertraline 50 mg PO QPM 10/07/18 09/18/20 History cholecalciferol (vitamin D3) 50 mcg PO DAILY 09/18/20 09/18/20 History levothyroxine 125 mcg PO DAILY 09/18/20 09/18/20 History clonazepam [Klonopin] 0.5 mg PO BID PRN #0 tab 09/21/20 09/18/20 Rx losartan 50 mg PO PM #0 tab 09/21/20 09/18/20 Rx Allergies Allergy/AdvReac Type Severity Reaction Status Date / Time [id number] Reductase AdvReac Intermediate MUSCLE Verified 09/18/20 15:12 Inhibitor ACHES-ELEVATED CK WITH LIPITOR PER HISTORY Past Med/Surg History Medical History Cerebral aneurysm "MRA [facility] 07/22/13 3 mm fusiform aneurysm takeoff right [employer]" CKD (chronic kidney disease), stage III Depression Esophagitis (12/26/10) History of papillary adenocarcinoma of thyroid HLD (hyperlipidemia) HTN (hypertension) Hypertensive heart disease Hypothyroidism MERY (obstructive sleep apnea) Panic disorder (12/26/10) Thyroid cancer Surgical History Status post appendectomy Status post thyroidectomy Family History Other Diabetes Hypertension Social History Smoking Status: Never smoker Second Hand Exposure: No; Do You Dip or Chew Tobacco: No; Tobacco Cessation Education Requested by Patient: No Hx Alcohol Use: No Hx Substance Use: No Preferred Language: Russian Communication Ability: Effective Labor Contractor Required: No Beliefs That Will Affect Care: None Current Living Situation: Family Other Information That Helps Us Care for You: No Feels Safe at Home: Yes Safety Concerns: Feels Safe At This Time Assistive Devices: Cane and Walker Review of Systems See HPI for pertinent positives & negatives. and A total of 10 systems reviewed and were otherwise negative Physical Exam Vital Signs Vital Signs - 24 hr 09/18/20 12:39 09/18/20 13:15 09/18/20 13:20 Temperature 35.9 C L Temperature Source Temporal Artery Scan Pulse Rate 56 L 52 L 55 L Pulse Rate from SpO2 Sensor 52 L 58 L Respiratory Rate 18 16 13 Respiratory Effort / Characteristics Non-Labored Respiratory Depth Normal Blood Pressure 165/82 H Blood Pressure Mean 109 Pulse Oximetry 98 96 98 Oxygen Delivery Method Room Air Room Air Room Air Sepsis Recent Fever Within 48 Hours No Sepsis New/Unexplained Change in Mental Status No Sepsis Action Taken by Nursing No Action Required 09/18/20 13:25 09/18/20 13:30 09/18/20 13:40 Temperature Temperature Source Pulse Rate 60 61 Pulse Rate from SpO2 Sensor 61 63 Respiratory Rate 20 19 Respiratory Effort / Characteristics Respiratory Depth Blood Pressure Blood Pressure Mean Pulse Oximetry 96 Oxygen Delivery Method Room Air Room Air Room Air Sepsis Recent Fever Within 48 Hours Sepsis New/Unexplained Change in Mental Status Sepsis Action Taken by Nursing 09/18/20 13:50 09/18/20 14:00 09/18/20 14:05 Temperature Temperature Source Pulse Rate 56 L 63 58 L Pulse Rate from SpO2 Sensor 56 L Respiratory Rate 16 15 17 Respiratory Effort / Characteristics Respiratory Depth Blood Pressure 161/91 H Blood Pressure Mean 114 Pulse Oximetry 96 Oxygen Delivery Method Room Air Room Air Room Air Sepsis Recent Fever Within 48 Hours Sepsis New/Unexplained Change in Mental Status Sepsis Action Taken by Nursing 09/18/20 14:10 09/18/20 14:20 09/18/20 14:30 Temperature Temperature Source Pulse Rate 57 L 57 L 57 L Pulse Rate from SpO2 Sensor Respiratory Rate 20 17 15 Respiratory Effort / Characteristics Respiratory Depth Blood Pressure 151/84 H Blood Pressure Mean 106 Pulse Oximetry Oxygen Delivery Method Room Air Room Air Room Air Sepsis Recent Fever Within 48 Hours Sepsis New/Unexplained Change in Mental Status Sepsis Action Taken by Nursing 09/18/20 14:40 09/18/20 15:02 Temperature Temperature Source Pulse Rate 57 L 61 Pulse Rate from SpO2 Sensor Respiratory Rate 19 17 Respiratory Effort / Characteristics Respiratory Depth Blood Pressure Blood Pressure Mean Pulse Oximetry Oxygen Delivery Method Room Air Room Air Sepsis Recent Fever Within 48 Hours Sepsis New/Unexplained Change in Mental Status Sepsis Action Taken by Nursing Vital signs reviewed. General: Well-appearing 84 yo female, in no significant distress. HEENT: No scleral icterus, PERRLA, neck supple. Atraumatic. Cardiovascular: Regular rate and rhythm, no extra sounds. Pulmonary: Clear to auscultation bilaterally, normal work of breathing. Abdomen: Soft, nontender, nondistended, positive bowel sounds. Musculoskeletal: Atraumatic, no peripheral edema. Neurologic: Patient awake alert and oriented x 3, full strength in all 4 extremities. minimal L nasolabial fold flattening and LUE +pronator drift but subtle. Intact finger to nose exam Skin: Warm, dry, no rash Course Administered Medications Discontinued Medications Aspirin (Aspirin 81 Mg Ectab) 81 mg PO QPM SABA Stop: 10/18/20 20:59 Last Admin: 09/20/20 21:04 Dose: 81 mg Documented by: [id number] Admin: 09/19/20 20:15 Dose: 81 mg Documented by: [id number] Admin: 09/18/20 21:06 Dose: 81 mg Documented by: [id number] Clonazepam (Clonazepam 1 Mg Tab) 1 mg PO TID PRN PRN Reason: Anxiety Stop: 10/18/20 18:59 Last Admin: 09/20/20 12:34 Dose: 1 mg Documented by: [id number] Admin: 09/19/20 20:15 Dose: 1 mg Documented by: [id number] Admin: 09/19/20 00:17 Dose: 1 mg Documented by: [id number] Clonazepam (Clonazepam 0.5 Mg Tab) 0.5 mg PO BID PRN PRN Reason: Anxiety Stop: 10/18/20 18:59 Last Admin: 09/20/20 21:01 Dose: 0.5 mg Documented by: [id number] Fenofibrate (Fenofibrate Nanocrystallized 145 Mg Tablet) 145 mg PO QPM SABA; Protocol Stop: 10/18/20 20:59 Last Admin: 09/20/20 21:03 Dose: 145 mg Documented by: [id number] Admin: 09/19/20 20:16 Dose: 145 mg Documented by: [id number] Admin: 09/18/20 21:07 Dose: 145 mg Documented by: [id number] Gadobutrol (Gadobutrol 65ml Vial) 7 ml IV ONCE ONE Stop: 09/18/20 22:55 Last Admin: 09/18/20 22:54 Dose: 7 ml Documented by: [id number] Heparin Sodium (Porcine) (Heparin Sod 5,000 Unit/0.5 Ml Vial) 5,000 units SQ Q12 SABA Stop: 10/18/20 20:59 Last Admin: 09/21/20 07:35 Dose: 5,000 units Documented by: [id number] Admin: 09/20/20 21:05 Dose: 5,000 units Documented by: [id number] Admin: 09/20/20 08:06 Dose: 5,000 units Documented by: [id number] Admin: 09/19/20 20:17 Dose: Not Given Documented by: [id number] Admin: 09/19/20 09:19 Dose: Not Given Documented by: [id number] Admin: 09/18/20 21:08 Dose: 5,000 units Documented by: [id number] Sodium Chloride (Nss 1000ml) 1,000 mls @ 125 mls/hr IV .Q8H [facility] Stop: 09/18/20 21:29 Last Infusion: 09/18/20 21:38 Dose: 0 mls/hr Documented by: [id number] Admin: 09/18/20 14:14 Dose: 125 mls/hr Documented by: [id number] Lorazepam (Ativan) 0.5 mg in 1 mls @ 1 mls/min IV ONE ONE Stop: 09/18/20 19:01 Last Admin: 09/18/20 22:21 Dose: 1 mls/min Documented by: [id number] Ioversol (Optiray 350 500ml) 111 ml IV ONCE ONE Stop: 09/18/20 14:54 Last Admin: 09/18/20 14:53 Dose: 111 ml Documented by: [id number] Levothyroxine Sodium (Levothyroxine Sodium 125 Mcg Tablet) 125 mcg PO DAILYBB SABA Stop: 10/19/20 06:29 Last Admin: 09/21/20 06:26 Dose: Not Given Documented by: [id number] Admin: 09/20/20 05:27 Dose: 125 mcg Documented by: [id number] Admin: 09/19/20 06:25 Dose: Not Given Documented by: [id number] Losartan Potassium (Losartan Potassium 25 Mg Tab) 25 mg PO PM SABA Stop: 10/18/20 20:59 Last Admin: 09/18/20 21:08 Dose: 25 mg Documented by: [id number] Losartan Potassium (Losartan Potassium 50 Mg Tab) 50 mg PO PM SABA Stop: 10/19/20 20:59 Last Admin: 09/20/20 21:04 Dose: 50 mg Documented by: [id number] Admin: 09/19/20 20:21 Dose: 50 mg Documented by: [id number] Nitroglycerin (Nitroglycerin 2% Ointment 30gm Tube) 1 inch EXT Q6H SABA Stop: 10/19/20 11:59 Last Admin: 09/20/20 05:53 Dose: Not Given Documented by: [id number] Admin: 09/19/20 23:26 Dose: Not Given Documented by: [id number] Admin: 09/19/20 18:32 Dose: 1 inch Documented by: [id number] Admin: 09/19/20 11:38 Dose: 1 inch Documented by: [id number] Pantoprazole Sodium (Pantoprazole 40 Mg Tab) 40 mg PO BID SABA Stop: 10/18/20 20:59 Last Admin: 09/21/20 07:35 Dose: 40 mg Documented by: [id number] Admin: 09/20/20 21:03 Dose: 40 mg Documented by: [id number] Admin: 09/20/20 08:05 Dose: 40 mg Documented by: [id number] Admin: 09/19/20 20:16 Dose: 40 mg Documented by: [id number] Admin: 09/19/20 09:19 Dose: Not Given Documented by: [id number] Admin: 09/18/20 21:09 Dose: 40 mg Documented by: [id number] Sertraline HCl (Sertraline Hcl 50 Mg Tablet) 50 mg PO QPM SABA Stop: 10/18/20 20:59 Last Admin: 09/20/20 21:33 Dose: 50 mg Documented by: [id number] Admin: 09/19/20 20:16 Dose: 50 mg Documented by: [id number] Admin: 09/18/20 21:10 Dose: 50 mg Documented by: [id number] Medical Decision Making Differential Diagnosis Infection, dehydration, metabolic abnormality, hypo/hyperglycemia, electrolyte disturbance, anemia, hypoxia, cardiac sources, intracerebral event, toxicologic, neurologic, as well as other pathologies. Medical Records Attestation: I reviewed the patient's medical records. Home Medications Current Medication List: was personally reviewed by me Laboratory Data Attestation: I reviewed the patient's lab results. Result diagrams: 09/19/20 06:19 09/20/20 06:28 Lab Results 09/18/20 09/18/20 09/18/20 Range/Units 12:16 13:55 13:55 WBC 6.17 (4.8-10.8) K/uL RBC 4.06 L (4.2-5.4) M/uL Hgb 11.8 L (12.0-16.0) g/dL Hct 37.1 (37-47) % MCV 91.4 (80-100) fL MCH 29.1 (25-34) pg MCHC 31.8 L (32-36) g/dL RDW Std Deviation 47.1 H (36.4-46.3) fL RDW Coeff of Brandan 14.1 (11.5-14.5) % Plt Count 346 (130-400) K/uL MPV 9.4 (7.4-10.4) fL Immature Gran % (Auto) 0.2 % Neut % (Auto) 64.6 % Lymph % (Auto) 20.9 % Crosby % (Auto) 8.3 % Eos % (Auto) 5.5 % Baso % (Auto) 0.5 % Neut # (Auto) 3.99 (1.4-6.5) K/uL Lymph # (Auto) 1.29 (1.2-3.4) K/uL Crosby # (Auto) 0.51 (0.11-0.59) K/uL Eos # (Auto) 0.34 (0-0.5) K/uL Baso # (Auto) 0.03 (0-0.2) K/uL Immature Gran # (Auto) 0.01 (0.00-0.02) K/uL Sodium 141 (136-145) mmol/L Potassium 4.5 (3.5-5.1) mmol/L Chloride 108 H (98-107) mmol/L Carbon Dioxide 27 (21-32) mmol/L Anion Gap 6.0 (3-11) BUN 32 H (7-18) mg/dl Creatinine 1.11 (0.6-1.2) mg/dl Est Cr Clr Drug Dosing 38.7 ml/min Est GFR ( Amer) 53.6 ml/min Est GFR (Non-Af Amer) 46.2 ml/min BUN/Creatinine Ratio 28.6 H (10-20) Glucose 89 (70-99) mg/dl Calcium 10.1 (8.5-10.1) mg/dl Magnesium 2.2 (1.8-2.4) mg/dl Total Bilirubin 0.3 (0.2-1) mg/dl AST 25 (15-37) U/L ALT 24 (12-78) U/L Alkaline Phosphatase 72 (45-117) U/L Troponin I < 0.015 (0-0.045) ng/ml Total Protein 7.3 (6.4-8.2) gm/dl Albumin 3.9 (3.4-5.0) gm/dl Globulin 3.4 (2.5-4.0) gm/dl Albumin/Globulin Ratio 1.2 (0.9-2) TSH 1.280 (0.300-4.500) uIu/ml Urine Color Dark Yellow Urine Appearance Clear (Clear) Urine pH 5.0 (4.5-7.5) Ur Specific [place] 1.021 (1.000-1.030) Urine Protein Negative (Negative) Urine Glucose (UA) Negative (Negative) Urine Ketones Negative (Negative) Urine Blood Negative (Negative) Urine Nitrite Negative (Negative) Urine Bilirubin Negative (Negative) Urine Urobilinogen Negative (Negative) Ur Leukocyte Esterase Trace H (Negative) Urine WBC (Auto) 1-5 (0-5) /hpf Urine RBC (Auto) 0-4 (0-4) /hpf U Hyaline Cast (Auto) 5-10 H (0-5) /lpf U Epithel Cells (Auto) >30 H (0-5) /lpf Urine Bacteria (Auto) Negative (Negative) Lyme Disease IgG Ab (Negative) Lyme Disease IgM Ab (Negative) COVID-19 Eval Order SARS-CoV-2 (PCR) (Negative) 09/18/20 09/18/20 09/18/20 Range/Units 13:56 15:57 15:57 WBC (4.8-10.8) K/uL RBC (4.2-5.4) M/uL Hgb (12.0-16.0) g/dL Hct (37-47) % MCV (80-100) fL MCH (25-34) pg MCHC (32-36) g/dL RDW Std Deviation (36.4-46.3) fL RDW Coeff of Brandan (11.5-14.5) % Plt Count (130-400) K/uL MPV (7.4-10.4) fL Immature Gran % (Auto) % Neut % (Auto) % Lymph % (Auto) % Crosby % (Auto) % Eos % (Auto) % Baso % (Auto) % Neut # (Auto) (1.4-6.5) K/uL Lymph # (Auto) (1.2-3.4) K/uL [place]by # (Auto) (0.11-0.59) K/uL Eos # (Auto) (0-0.5) K/uL Baso # (Auto) (0-0.2) K/uL Immature Gran # (Auto) (0.00-0.02) K/uL Sodium (136-145) mmol/L Potassium (3.5-5.1) mmol/L Chloride (98-107) mmol/L Carbon Dioxide (21-32) mmol/L Anion Gap (3-11) BUN (7-18) mg/dl Creatinine (0.6-1.2) mg/dl Est Cr Clr Drug Dosing ml/min Est GFR ( Amer) ml/min Est GFR (Non-Af Amer) ml/min BUN/Creatinine Ratio (10-20) Glucose (70-99) mg/dl Calcium (8.5-10.1) mg/dl Magnesium (1.8-2.4) mg/dl Total Bilirubin (0.2-1) mg/dl AST (15-37) U/L ALT (12-78) U/L Alkaline Phosphatase (45-117) U/L Troponin I (0-0.045) ng/ml Total Protein (6.4-8.2) gm/dl Albumin (3.4-5.0) gm/dl Globulin (2.5-4.0) gm/dl Albumin/Globulin Ratio (0.9-2) TSH (0.300-4.500) uIu/ml Urine Color Urine Appearance (Clear) Urine pH (4.5-7.5) Ur Specific [place] (1.000-1.030) Urine Protein (Negative) Urine Glucose (UA) (Negative) Urine Ketones (Negative) Urine Blood (Negative) Urine Nitrite (Negative) Urine Bilirubin (Negative) Urine Urobilinogen (Negative) Ur Leukocyte Esterase (Negative) Urine WBC (Auto) (0-5) /hpf Urine RBC (Auto) (0-4) /hpf U Hyaline Cast (Auto) (0-5) /lpf U Epithel Cells (Auto) (0-5) /lpf Urine Bacteria (Auto) (Negative) Lyme Disease IgG Ab Negative (Negative) Lyme Disease IgM Ab Negative (Negative) COVID-19 Eval Order Covid19 at [facility] SARS-CoV-2 (PCR) NEGATIVE (Negative) Imaging Data Radiologist's Impression: Chest X-Ray 09/18/20 13:17 XR chest 1V portable HISTORY: 84 years-old Female weakness acute weakness COMPARISON: Chest radiograph 10/07/2018 TECHNIQUE: Portable AP view of the chest FINDINGS: Cardiac silhouette is enlarged. Hiatal hernia. No pneumothorax, pleural eff usion, airspace consolidation or overt edema. Unchanged mild chronic partial coarsening of the lung bases. Degenerative changes of the shoulders and spine. IMPRESSION: 1. Cardiomegaly without acute process. 2. Hiatal hernia. ACT 112: Negative or not required by law. The above report was generated using voice recognition software. It may contain grammatical, syntax or spelling errors. Electronically signed by: Fabricio Desouza M.D. 09/18/2020 1:31 PM Head CTA 09/18/20 13:59 CT angio head wo/w CLINICAL HISTORY: CVA sx. Right facial droop. COMPARISON STUDY: MRI of the brain and MRA of the head July 21, 2013. Head CT July 20, 2013. TECHNIQUE: Unenhanced and arterial phase imaging of the head was performed. Intravenous injection of 111 cc of Optiray 320 IV was uneventful. Sagittal and coronal reconstructions were viewed as well as maximal intensity projections on an independent 3-D workstation. Automated exposure control was utilized for the study. A dose lowering technique was utilized adhering to the principles of ALARA. FINDINGS: No acute intracranial hemorrhage, midline shift or mass effect is present. Ventricular system is stable. White matter hypodensities suggest small vessel disease. There are no findings to suggest acute dural sinus thrombosis or acute territorial infarct. A 7 mm hyperdensity within the white matter of the right frontal lobe shown on axial image 15 of [address] of July 20, 2013. This may reflect calcifications. This is of doubtful significance given stability. The bilateral M1, M2, A1 and A2 segments are patent. There is mild stenosis of the proximal left M1 segment. 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 There is persistence of the right posterior cerebral artery. Posterior circulation is intact. No central vessel occlusion is noted. No additional intracranial aneurysms are identified. IMPRESSION: 1. No acute intracranial findings. 2. White matter hypodensities suggestive of small vessel disease. 3. Stable 7 mm hyperdense focus within the right frontal lobe which may reflect calcifications. This is of doubtful significance. 4. No central vessel occlusion. 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 ACT 112: Negative or not required by law. Electronically signed by: Luis Rosen M.D. 09/18/2020 3:13 PM Neck CTA 09/18/20 13:59 CT angio neck with con CLINICAL HISTORY: Acute stroke like symptoms. Right-sided facial droop. Patient listing to one side when walking. COMPARISON STUDY: MR angiographic study performed July 2013 TECHNIQUE: CT angiography was performed from the aortic arch to the skull base. MIP imaging was performed. The patient was scanned in a dynamic helical fashion during intravenous administration of 111 cc of Optiray. A dose lowering technique was utilized adhering to the principles of ALARA. CT DOSE: Technique: CT angiogram of the carotid and vertebral arteries was obtained using intravenous contrast and 3-D reconstruction. NASCET criteria was utilized. Findings: There is a 7 mm right apical bleb. There are moderately advanced degenerative changes within the cervical spine with multiple degenerative subluxations. The right carotid revealed no evidence of aneurysm and no evidence of dissection. There is no evidence of hemodynamic significant stenosis. The left carotid revealed no evidence of hemodynamic significant stenosis. There is no evidence of aneurysm. There is no evidence of dissection. There is no evidence of hemodynamically significant vertebral stenosis. There is no evidence of vertebral dissection. IMPRESSION: No evidence of hemodynamically significant carotid or vertebral artery stenosis. No evidence of dissection. ACT 112: Negative or not required by law. Electronically signed by: Atif Contreras M.D. 09/18/2020 3:07 PM ECG Data Attestation: I personally reviewed and interpreted this ECG as follows: Indication: + weakness Rate (beats per minute): 56 Rhythm: + sinus bradycardia ECG Intervals/blocks: + Normal QT (376) ECG Delta: + Normal ECG ST segments: + Normal ST segments ECG Findings: no PACs and no PVCs Blood Pressure Blood Pressure Findings: Elevated blood pressure Blood Pressure Disposition: further management by hospitalist MDM Narrative This pt was evaluated and appeared to be in no distress. IV access was obtained and lab work was drawn. An order for cardiac monitoring was placed and pt was noted to be in a sinus bradycardia at 58 bpm. Pt was hydrated with NSS. CT head with CTA head and neck were ordered. These studies are read as above without acute infarction appreciated, no dissection. A tiny posterior communicating artery aneurysm is noted and 7 mm calcification of frontal lobe. Pt was advised of the findings. She will be evaluted by the hospitalist service for further management. Pt is aware of the plan and agrees. Impression & Plan Symptoms of cerebrovascular accident (CVA) Discharge Plan Visit Data Chief Complaint: Stroke/CVA Symptoms Stated Complaint: HAD DR BRYAN/THINKS PT HAD A STROKE ED Provider: Makayla Maria Discharge Problem: Symptoms of cerebrovascular accident (CVA) Patient Disposition: Admitted As Inpatient Condition: Fair Discharge Instructions Interventions: ED Discharge Assessment Last Done: 09/18/20 18:16
--- NOTE | 2020-09-18 16:47 | History & Physical Report ---
Date of Service September 18, 2020 Assessment & Plan (1) Dizziness: (2) Syncope: Pt is 84 y/o F with PMH HTN, HLD, thyroid CA s/p surgery and post surgical hypothyroidism, CKD III, MERY, depression, panic disorder presented to the ER for ongoing lightheadedness and ambulatory dysfunction. Syncopal episode 08/19/20. F/U PCP with CT head without contrast: no acute intracranial abnormality, no acute territorial infarct mass or hemorrhage right frontal lobe hypodense focus stable since 2013, most consistent with cavernous venous malformation, chronic brain parenchymal volume loss, anterior and posterior circulation arterial atherosclerotic health postop occasion. Transthoracic echo: EF 55-59%, grade 1 diastolic dysfunction. Carotid artery duplex with less than 50% stenosis of right and left internal carotid artery. Recurrent follow-ups with PCP for continued lightheadedness, ambulatory dy sfunction, headache, memory problems and had trazodone discontinued as well as gabapentin weaned and discontinued without improvement of symptoms. Today PCP noticed left facial drooping and was referred to ER In ER vitals stable, no leukocytosis H&H: 11.8/37, no significant electrolyte abnormality, TSH WNL, UA not consistent with UTI DDX: CVA, vertigo, post concussive syndrome, arrhythmia -Lyme IgG and IgM negative -Tele to monitor for arrhythmias -lipids, A1c in AM -MRI brain -fall precautions, aspiration precautions -PT/OT consult -Pt statin intolerant -Continue aspirin -neurology consult (3) Ambulatory dysfunction: Ambulatory dysfunction and recurrent falls -PT OT -Fall precautions (4) Bradycardia: Pulse noted in 50s in ER -Hold atenolol for now (5) HTN (hypertension): -Continue losartan, hold atenolol as above (6) HLD (hyperlipidemia): Patient with history of statin intolerance -Continue fenofibrate (7) CKD (chronic kidney disease), stage III: Cr: 1.1 (baseline 1.1-1.2) -Avoid nephrotoxic agents when possible (8) Depression: Anxiety -Continue sertraline, as needed clonazepam (9) Hypothyroidism: History of thyroid CA s/p surgery. Postsurgical hypothyroidism TSH 1.2 -Continue levothyroxine (10) MERY (obstructive sleep apnea): -Does not use CPAP DVT Prophylaxis -Heparin SQ DNR/DNI as per discussion with pt Follows with Dr Roe for routine care Pt was seen and care coordinated with Dr Arita. See addendum History of Present Illness Chief Complaint: lightheadedness Primary Care Provider: Issac Roe, Pt is 84 y/o F with PMH HTN, HLD, thyroid CA s/p surgery and post surgical hypothyroidism, CKD III, MERY, depression, panic disorder presented to the ER for ongoing lightheadedness and ambulatory dysfunction. Patient had episode of standing watching her grandkids and next thing she knows her kids were getting her up off the floor. She saw her PCP on 08/19/2020 for the syncopal episode and had workup inclucing CT head without contrast which did not show any acute intracranial abnormality, no acute territorial infarct mass or hemorrhage. Transthoracic echo: EF 55-59%, grade 1 diastolic dysfunction. Carotid artery duplex with less than 50% stenosis of right and left internal carotid artery. She had follow-up with PCP 08/30/2020 and had continued lightheadedness, ambulatory dysfunction and recurrent falls, and headache and trazodone was stopped. Additional follow-up 09/05/2020 gabapentin was tapered then discontinued. Had another follow-up with PCP today and slight left facial drooping was noticed and patient was referred to ER. Patient states since fall 1 month ago has had headaches, dizziness described as spinning as well as lighthea dedness with standing and walking. Patient states has had difficulty walking, she feels like bilateral legs are weak. States since her right knee surgery her right leg is chronically less ROM and weaker. She does report has had several falls. Patient states having trouble with her memory as well. She also feels like she has been having some dysphagia since fall and has choked on food a couple of times. Prior to fall patient states did not have any neuro symptoms or ambulatory problems. She also reports has had intermittent nonproductive cough. C/O right shoulder discomfort with ROM since initial fall. Denies any known recurrent syncopal episodes. Denies fever/chills, diaphoresis, N/V/D/C, vision changes, neck pain, CP, SOB, orthopnea, palpitations, sore throat, otalgia, rhinorrhea, abdominal pain, paresthesias, extremity edema, rashes, urinary symptoms. Allergies Allergy/AdvReac Type Severity Reaction Status Date / Time Ywiulwe-Aku-Ujr Reductase AdvReac Intermediate MUSCLE Verified 09/18/20 15:12 Inhibitor ACHES-ELEVATED CK WITH LIPITOR PER HISTORY Home Medications Medication Instructions Recorded Confirmed Type aspirin [Aspir-81] 81 mg PO QPM 10/07/18 09/18/20 History atenolol 25 mg PO QPM 10/07/18 09/18/20 History clonazepam [Klonopin] 1 mg PO TID PRN 10/07/18 09/18/20 History fenofibric acid (choline) 135 mg PO QPM 10/07/18 09/18/20 History meclizine 12.5 mg PO TID PRN 10/07/18 09/18/20 History pantoprazole 40 mg PO BID 10/07/18 09/18/20 History sertraline 50 mg PO QPM 10/07/18 09/18/20 History cholecalciferol (vitamin D3) 50 mcg PO DAILY 09/18/20 09/18/20 History ibuprofen 800 mg PO Q6H 09/18/20 09/18/20 History levothyroxine 125 mcg PO DAILY 09/18/20 09/18/20 History losartan 25 mg PO PM 09/18/20 09/18/20 History Past Med/Surg History Medical History (Updated 09/18/20 @ 18:07 by Adali Givens PA-C) Cerebral aneurysm "[facility] 07/22/13 3 mm fusiform aneurysm takeoff right [employer]" CKD (chronic kidney disease), stage III Depression Esophagitis (12/26/10) History of papillary adenocarcinoma of thyroid HLD (hyperlipidemia) HTN (hypertension) Hypertensive heart disease Hypothyroidism MERY (obstructive sleep apnea) Panic disorder (12/26/10) Thyroid cancer Surgical History Status post appendectomy Status post thyroidectomy Family History (Updated 09/18/20 @ 18:00 by Adali Givens PA-C) Other Diabetes Hypertension Social History (Updated 09/18/20 @ 18:01 by Adali Givens PA-C) Smoking Status: Never smoker Hx Alcohol Use: No Hx Substance Use: No Feels Safe at Home: Yes Review of Systems Review of Systems: All systems reviewed & are unremarkable except as noted in HPI & below Physical Exam Physical Exam: General: no acute distress, WDWN Head: normocephalic, atraumatic Eyes: PERRL, EOM's intact, conjunctiva non-injected, anicteric ENT: normal inspection external ears, nose, mucous membranes moist Neck: supple, trachea midline, non-tender Lungs: clear, no respiratory distress, no wheezing/rhonchi/rales CV: RRR, no murmur, no JVD, no pretibial edema Abd: normal BS, soft, non-tender Ext: no cyanosis, no calf tenderness Neuro: A&O x 3, normal affect, +slight left facial droop noted, No nystagmus, Hearing grossly intact, no dysarthria, Shoulder shrug intact, Tongue is midline Skin: warm, dry Results & Data Results & Data ([facility]) Vital Signs (Past 12 Hours) Vital Signs Temp Pulse Resp BP Pulse Ox 09/18/20 16:01 60 16 159/77 H 09/18/20 16:00 56 L 18 09/18/20 15:50 55 L 20 96 09/18/20 15:40 61 21 09/18/20 15:30 58 L 18 157/73 H 98 09/18/20 15:20 60 18 94 09/18/20 15:10 57 L 20 100 09/18/20 15:02 61 17 09/18/20 14:40 57 L 19 09/18/20 14:30 57 L 15 151/84 H 09/18/20 14:20 57 L 17 09/18/20 14:10 57 L 20 09/18/20 14:05 58 L 17 161/91 H 09/18/20 14:00 63 15 09/18/20 13:50 56 L 16 96 09/18/20 13:40 61 19 09/18/20 13:30 60 20 96 09/18/20 13:20 55 L 13 98 09/18/20 13:15 52 L 16 96 09/18/20 12:39 35.9 C L 56 L 18 165/82 H 98 Laboratory Results Short CBC 09/18/20 Range/Units 13:55 WBC 6.17 (4.8-10.8) K/uL Hgb 11.8 L (12.0-16.0) g/dL Hct 37.1 (37-47) % Plt Count 346 (130-400) K/uL BMP 09/18/20 13:55 Sodium 141 Potassium 4.5 Chloride 108 H Carbon Dioxide 27 BUN 32 H Creatinine 1.11 Glucose 89 Calcium 10.1 Cardiac Enzymes 09/18/20 Range/Units 13:55 Troponin I < 0.015 (0-0.045) ng/ml Liver Function 09/18/20 Range/Units 13:55 Total Bilirubin 0.3 (0.2-1) mg/dl AST 25 (15-37) U/L ALT 24 (12-78) U/L Alkaline Phosphatase 72 (45-117) U/L Albumin 3.9 (3.4-5.0) gm/dl Urine 09/18/20 Range/Units 12:16 Urine Color Dark Yellow Urine Appearance Clear (Clear) Urine pH 5.0 (4.5-7.5) Ur Specific [place] 1.021 (1.000-1.030) Urine Protein Negative (Negative) Urine Glucose (UA) Negative (Negative) Diagnostic Findings Chest X-Ray 09/18/20 13:17 XR chest 1V portable HISTORY: 84 years-old Female weakness acute weakness COMPARISON: Chest radiograph 10/07/2018 TECHNIQUE: Portable AP view of the chest FINDINGS: Cardiac silhouette is enlarged. Hiatal hernia. No pneumothorax, pleural effusion, airspace consolidation or overt edema. Unchanged mild chronic partial coarsening of the lung bases. Degenerative changes of the shoulders and spine. IMPRESSION: 1. Cardiomegaly without acute process. 2. Hiatal hernia. ACT 112: Negative or not required by law. The above report was generated using voice recognition software. It may contain grammatical, syntax or spelling errors. Electronically signed by: Fabricio Desouza M.D. 09/18/2020 1:31 PM Head CTA 09/18/20 13:59 CT angio head wo/w CLINICAL HISTORY: CVA sx. Right facial droop. COMPARISON STUDY: MRI of the brain and MRA of the head July 21, 2013. Head CT July 20, 2013. TECHNIQUE: Unenhanced and arterial phase imaging of the head was performed. Intravenous injection of 111 cc of Optiray 320 IV was uneventful. Sagittal and coronal reconstructions were viewed as well as maximal intensity projections on an independent 3-D workstation. Automated exposure control was utilized for the study. A dose lowering technique was utilized adhering to the principles of ALARA. FINDINGS: No acute intracranial hemorrhage, midline shift or mass effect is present. Ventricular system is stable. White matter hypodensities suggest small vessel disease. There are no findings to suggest acute dural sinus thrombosis or acute territorial infarct. A 7 mm hyperdensity within the white matter of the right frontal lobe shown on axial image 15 of [address] of July 20, 2013. This may reflect calcifications. This is of doubtful significance given stability. The bilateral M1, M2, A1 and A2 segments are patent. There is mild stenosis of the proximal left M1 segment. 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 There is persistence of the right posterior cerebral artery. Posterior circulation is intact. No central vessel occlusion is noted. No additional intracranial aneurysms are identified. IMPRESSION: 1. No acute intracranial findings. 2. White matter hypodensities suggestive of small vessel disease. 3. Stable 7 mm hyperdense focus within the right frontal lobe which may reflect calcifications. This is of doubtful significance. 4. No central vessel occlusion. 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 ACT 112: Negative or not required by law. Electronically signed by: Luis Rosen M.D. 09/18/2020 3:13 PM Neck CTA 09/18/20 13:59 CT angio neck with con CLINICAL HISTORY: Acute stroke like symptoms. Right-sided facial droop. Patient listing to one side when walking. COMPARISON STUDY: MR angiographic study performed July 2013 TECHNIQUE: CT angiography was performed from the aortic arch to the skull base. MIP imaging was performed. The patient was scanned in a dynamic helical fashion during intravenous administration of 111 cc of Optiray. A dose lowering technique was utilized adhering to the principles of ALARA. CT DOSE: Technique: CT angiogram of the carotid and vertebral arteries was obtained using intravenous contrast and 3-D reconstruction. NASCET criteria was utilized. Findings: There is a 7 mm right apical bleb. There are moderately advanced degenerative changes within the cervical spine with multiple degenerative subluxations. The right carotid revealed no evidence of aneurysm and no evidence of dissection. There is no evidence of hemodynamic significant stenosis. The left carotid revealed no evidence of hemodynamic significant stenosis. There is no evidence of aneurysm. There is no evidence of dissection. There is no evidence of hemodynamically significant vertebral stenosis. There is no evidence of vertebral dissection. IMPRESSION: No evidence of hemodynamically significant carotid or vertebral artery stenosis. No evidence of dissection. ACT 112: Negative or not required by law. Electronically signed by: Atif Contreras M.D. 09/18/2020 3:07 PM Shoulder X-Ray 09/18/20 16:45 RIGHT SHOULDER 3 VIEWS CLINICAL HISTORY: Right shoulder pain. Fall one month ago. FINDINGS: 3 views of the right shoulder are obtained. No prior studies are available for comparison at the time of dictation. The skeletal structures are osteopenic. There is no radiographic evidence of fracture or dislocation. Mild productive degenerative change is seen at the acromioclavicular joint. 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 Superior subluxation of the humeral head suggests chronic rotator cuff injury. The overlying soft tissues are normal as imaged. The visualized right lung parenchyma appears clear noting basilar atelectasis. There are healed right-sided rib fractures. IMPRESSION: 1. No acute bony abnormality is identified. 2. Osteopenia with chronic/degenerative changes as above. Electronically signed by: Donovan Chester M.D. 09/18/2020 5:29 PM ECG Rhythm: sinus bradycardia Code Status & VTE Plan VTE Prophylaxis Plan VTE Prophylaxis will be ordered: Yes Supervising Physician Co-Signing Physician Notes She is an 84-year-old female with history of hypertension, hyperlipidemia, CKD, and other medical problems presents with history of ongoing lightheadedness and ambulatory dysfunction. She was evaluated by PCP for syncopal episode 1 month ago and had outpatient work-up negative for any acute intracranial abnormality. She has been having recurrent falls secondary to dizziness. Patient was noted to have a slight facial droop while her visit to PCP today and was sent to ED for further evaluation. Patient denies any focal weakness. She also denies any headache, change in vision dysarthria. Please review HPI for complete details of presentation. Head and neck CTA showed no acute intracranial findings. Noted stable 7 mm hyperdense focus within the right frontal lobe suggestive of calcification. 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 On exam patient is moderately built and nourished, no apparent distress, normocephalic atraumatic, lungs are clear to auscultation, S1-S2, no murmur, no pedal edema, abdomen soft, nontender, normal bowel sounds, alert, awake, oriented,+ minimal facial droop, Right leg minimal weakness when compared to left which patient states is chronic secondary to prior surgery. Patient is admitted for management of dizziness, r ecent syncopal episode, ambulatory dysfunction, bradycardia, facial droop. Strokelike symptoms. Will obtain MRI to rule out any acute process. Will consult neurology. Will hold atenolol given bradycardia. Will obtain Lyme screen. Will consider further evaluation of stroke work-up if MRI suggestive of acute or subacute CVA. I personally reviewed the record. Patient is interviewed and examined at bedside. Patient's care is coordinated with Adali Givens PA-C. Please refer to the documentation above for details of patient's presentation and for discussion of other issues.
--- NOTE | 2020-09-18 17:30 | XRay Report ---
RIGHT SHOULDER 3 VIEWS CLINICAL HISTORY: Right shoulder pain. Fall one month ago. FINDINGS: 3 views of the right shoulder are obtained. No prior studies are available for comparison a t the time of dictation. The skeletal structures are osteopenic. There is no radiographic evidence of fracture or dislocation. Mild productive degenerative change is seen at the acromioclavicular joint. 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 [place] perior subluxation of the humeral head suggests chronic rotator cuff injury. The overlying soft tissu es are normal as imaged. The visualized right lung parenchyma appears clear noting basilar atelectasi s. There are healed right-sided rib fractures. IMPRESSION: 1. No acute bony abnormality is identified. 2. Osteopenia with chronic/degenerative changes as above. Electronically signed by: Donovan Chester M.D. 09/18/2020 5:29 PM
[2020-09-18 17:35] LABS: Lyme Ab IgG w/WB Rflx Negative (Negative); Lyme Ab IgM w/WB Rflx Negative (Negative)
[2020-09-18] MEDS ORDERED: POLYETHYLENE (MIRALAX) 17 GM PACK PO PRN (19:00)
[2020-09-18] MEDS ORDERED: PHARMACIST DISCHARGE MED REC CONSULT PRN (19:00)
[2020-09-18] MEDS ORDERED: LORazepam 0.5 MG/1 ML VIAL IV ONE (19:00)
[2020-09-18] MEDS ORDERED: ACETAMINOPHEN 325 MG TAB PO PRN (19:00)
[2020-09-18] MEDS ORDERED: LOSARTAN POTASSIUM 25 MG TAB PO SCH (21:00)
[2020-09-18] MEDS: ASPIRIN 81 MG ECTAB PO SCH (21:06)
[2020-09-18] MEDS: FENOFIBRATE NANOCRYSTALLIZED 145 MG TABLET PO SCH (21:07)
[2020-09-18] MEDS: HEPARIN SOD 5,000 UNIT/0.5 ML VIAL SQ SCH (21:08)
[2020-09-18] MEDS: PANTOprazole 40 MG TAB PO SCH (21:09)
[2020-09-18] MEDS: SERTRALINE HCL 50 MG TABLET PO SCH (21:10)
[2020-09-18] MEDS ORDERED: GADOBUTROL 65ML VIAL IV ONE (22:54)
[2020-09-19] MEDS: clonazePAM 1 MG TAB PO PRN ×2 (00:17→20:15)
[2020-09-19] MEDS: LEVOTHYROXINE SODIUM 125 MCG TABLET PO SCH ×2 (06:22→06:25)
[2020-09-19 07:01] LABS: Basophils # (auto) 0.05 K/uL (0-0.2); Basophils % (auto) 0.8 %; Eosinophils # (auto) 0.42 K/uL (0-0.5); Eosinophils % (auto) 6.8 %; Hematocrit (blood only) 33.1 % (37-47); Hemoglobin 10.6 g/dL (12.0-16.0); Lymphocytes # (auto) 1.08 K/uL (1.2-3.4); Lymphocytes % (auto) 17.4 %; Mean Corpuscular Hemoglobin 28.9 pg (25-34); Mean Corpuscular Volume 90.2 fL (80-100); Mean Platelet Volume 9.4 fL (7.4-10.4); Monocytes # (auto) 0.62 K/uL (0.11-0.59); Neutrophils # (auto) 4.02 K/uL (1.4-6.5); Platelet Count 337 K/uL (130-400); RDW Coefficient of Variation 13.9 % (11.5-14.5); RDW Standard Deviation 46.5 fL (36.4-46.3); Red Blood Count 3.67 M/uL (4.2-5.4); White Blood Count 6.19 K/uL (4.8-10.8)
[2020-09-19 07:38] LABS: BUN Creatinine Ratio 29.6 (10-20); Calcium 9.2 mg/dl (8.5-10.1); Est GFR (Non-African American) 60.4 ml/min; Magnesium 2.2 mg/dl (1.8-2.4); Potassium 3.9 mmol/L (3.5-5.1)
--- NOTE | 2020-09-19 08:32 | Magnetic Resonance Report ---
MRI OF THE BRAIN COMBO CLINICAL HISTORY: Dizziness. Left-sided facial droop. COMPARISON STUDY: CT of the brain dated 09/18/2020. MRI of the brain dated 07/21/2013. TECHNIQUE: MRI of the brain was performed utilizing various T1 and T2-weighted sequences in the axial , sagittal, and coronal planes. Contrast-enhanced sequences were acquired following the administratio n of 7 cc of Gadavist. The examination is modestly degraded by motion artifact. FINDINGS: Brain parenchyma: There is age-related involutional change noting moderate to advanced subcortical an d periventricular microangiopathic disease. There is no hemorrhage or mass effect. There is no restri cted diffusion to suggest acute ischemia. No enhancing mass lesion is identified on the postcontrast images. Samuel-white matter differentiation is preserved. Small chronic lacunar infarcts are noted in t he right cerebellar hemisphere. No extra-axial fluid collection is seen. The cerebellar tonsils are n ormal in configuration. Ventricles, sulci, and cisterns: Prominent secondary to involutional change. Pituitary and sella: Unremarkable. Intracranial vasculature: Normal flow voids are maintained at the skull base. Orbits: The bony orbits are grossly intact. Orbital contents are normal in appearance noting bilatera l ocular lens implants. Sinuses and mastoids: Clear. Calvarium: Unremarkable. Cervical cord: Partially visualized cervical spinal cord is normal in morphology and signal intensity . IMPRESSION: No acute intracranial abnormality. ACT 112: Negative or not required by law. Electronically signed by: Donovan Chester M.D. 09/19/2020 8:30 AM
[2020-09-19 08:39] LABS: Estimated Average Glucose 131 mg/dl; Hemoglobin A1C 6.2 % (4.5-5.6)
[2020-09-19] MEDS: PANTOprazole 40 MG TAB PO SCH ×2 (09:19→20:16)
[2020-09-19] MEDS: HEPARIN SOD 5,000 UNIT/0.5 ML VIAL SQ SCH ×2 (09:19→20:17)
[2020-09-19] MEDS: NITROGLYCERIN 2% OINTMENT 30GM TUBE EXT SCH ×3 (11:38→23:26)
--- NOTE | 2020-09-19 15:14 | Hospitalist Progress Note ---
Date of Service September 19, 2020 Assessment & Plan (1) Dizziness: (2) Syncope: Pt is 84 y/o F with PMH HTN, HLD, thyroid CA s/p surgery and post surgical hypothyroidism, CKD III, MERY, depression, panic disorder presented to the ER for ongoing lightheadedness and ambulatory dysfunction. Syncopal episode 08/19/20. F/U PCP with CT head without contrast: no acute intracranial abnormality, no acute territorial infarct mass or hemorrhage right frontal lobe hypodense focus stable since 2013, most consistent with cavernous venous malformation, chronic brain parenchymal volume loss, anterior and posterior circulation arterial atherosclerotic health postop occasion. Transthoracic echo: EF 55-59%, grade 1 diastolic dysfunction. Carotid artery duplex with less than 50% stenosis of right and left internal carotid artery. Recurrent follow-ups with PCP for continued lightheadedness, ambulatory dy sfunction, headache, memory problems and had trazodone discontinued as well as gabapentin weaned and discontinued without improvement of symptoms. On the day of admission PCP noticed left facial drooping and was referred to ER In ER vitals stable, no leukocytosis H&H: 11.8/37, no significant electrolyte abnormality, TSH WNL, UA not consistent with UTI DDX: CVA, vertigo, post concussive syndrome, arrhythmia Lyme IgG and IgM negative CTA of the neck and CT of the head were unremarkable-see the full documentation in diagnostics section MRI of the brain did not show any stroke and/or hemorrhage Echo that was done in 2018 was unremarkable Does not have any focal neurological deficit Await neurology evaluation Agitation since this morning Noted to be pleasantly confused and this morning and requiring one-to-one sitter She wants to be discharged and she believes that she does not have any illness that she needs to be in the hospital Has had a long discussion with the patient specially for continued care to decrease the blood pressure which may be causing part of the problem She will also have PT and OT evaluation before she can be discharged This was discussed in detail with the son and he is going to talk to his mom to persuade No psychiatric consult at this time Has been on Klonopin 1 mg 2 times a day as needed-will not change the medications for now (3) Ambulatory dysfunction: Ambulatory dysfunction and recurrent falls -PT OT -Fall precautions (4) Bradycardia: Pulse noted in 50s in ER -Hold atenolol for now -Rate remains controlled (5) HTN (hypertension): -Continue losartan, hold atenolol as above -Blood pressure was noted to be very high this morning systolic more than 190 -Her beta-gabo has been on hold due to bradycardia -Nitropaste was given -Atenolol 25 mg a very small dose will be discontinued -Losartan dose can be increased to control the blood pressure (6) HLD (hyperlipidemia): Patient with history of statin intolerance -Continue fenofibrate (7) CKD (chronic kidney disease), stage III: Cr: 1.1 (baseline 1.1-1.2) -Avoid nephrotoxic agents when possible (8) Depression: Anxiety -Continue sertraline, as needed clonazepam (9) Hypothyroidism: History of thyroid CA s/p surgery. Postsurgical hypothyroidism TSH 1.2 -Continue levothyroxine (10) MERY (obstructive sleep apnea): -Does not use CPAP DVT Prophylaxis -Heparin SQ DNR/DNI as per discussion with pt Follows with Dr Roe for routine care Admission and Anticipated Discharge Date Admission Date: September 18, 2020 Subjective 09/19/2020 The patient was seen and examined in medical telemetry unit She was admitted with dizziness and ambulatory dysfunction She has been very confused and wants to leave the hospital even if she dies since this morning She has been under one-to-one observation since this morning Denies any symptoms to me and wanted to leave the hospital as soon as possible Not been aggressive Review of Systems Review of Systems: All systems reviewed and are unremarkable except as noted below Neurologic: Alert, awake and oriented. No focal neuro deficit Psychiatric: + irritability, + anxiety and + confusion (Pleasantly confused) Physical Exam Physical Exam: Lying in bed comfortably Constitutional: well developed, well nourished and + obese; not ill appearing Eyes: PERRL, conjunctivae normal, anicteric sclerae ENMT: external ear and nose normal, oropharynx normal Neck: trachea midline, no thyromegaly Respiratory: no respiratory distress Auscultation: lungs clear to auscultation bilaterally Cardiovascular: Rate/Rhythm: regular rate and regular rhythm Heart Sounds: no murmur Extremities: + edema (Trace edema bilaterally) Gastrointestinal (Abdomen): Inspection/Auscultation: normal bowel sounds; abdomen not distended Percussion/Palpation: abdomen soft; abdomen nontender Musculoskeletal: No acute arthritis in any joint Neurologic: Alert, awake and oriented x3. No focal sensory and motor deficit appreciated Psychiatric: Affect: + anxious affect Mood: + anxious mood Lymphatic: no cervical or axillary lymphadenopathy Results & Data Results & Data ([facility]) Vital Signs (Past 12 Hours) Vital Signs Temp Pulse Resp BP BP Pulse Ox 09/19/20 14:51 36.8 C 87 20 178/94 H 93 09/19/20 10:57 36.6 C 76 18 196/80 H 96 09/19/20 04:02 36.4 C L 51 L 18 131/80 90 Laboratory Results Short CBC 09/19/20 Range/Units 06:19 WBC 6.19 (4.8-10.8) K/uL Hgb 10.6 L (12.0-16.0) g/dL Hct 33.1 L (37-47) % Plt Count 337 (130-400) K/uL BMP 09/19/20 06:19 Sodium 142 Potassium 3.9 Chloride 109 H Carbon Dioxide 28 BUN 26 H Creatinine 0.89 Glucose 108 H Calcium 9.2 Medications Administered Current Inpatient Medications Acetaminophen (Acetaminophen 325 Mg Tab) 650 mg PO Q4H PRN PRN Reason: Pain or Fever Stop: 10/18/20 18:59 Aspirin (Aspirin 81 Mg Ectab) 81 mg PO QPM SABA Stop: 10/18/20 20:59 Last Admin: 09/18/20 21:06 Dose: 81 mg Documented by: Clonazepam (Clonazepam 1 Mg Tab) 1 mg PO TID PRN PRN Reason: Anxiety Stop: 10/18/20 18:59 Last Admin: 09/19/20 00:17 Dose: 1 mg Documented by: Fenofibrate (Fenofibrate Nanocrystallized 145 Mg Tablet) 145 mg PO QPM [facility]; Protocol Stop: 10/18/20 20:59 Last Admin: 09/18/20 21:07 Dose: 145 mg Documented by: Heparin Sodium (Porcine) (Heparin Sod 5,000 Unit/0.5 Ml Vial) 5,000 units SQ Q12 SABA Stop: 10/18/20 20:59 Last Admin: 09/19/20 09:19 Dose: Not Given Documented by: Levothyroxine Sodium (Levothyroxine Sodium 125 Mcg Tablet) 125 mcg PO DAILYBB [facility] Stop: 10/19/20 06:29 Last Admin: 09/19/20 06:25 Dose: Not Given Documented by: Losartan Potassium (Losartan Potassium 25 Mg Tab) 25 mg PO PM SABA Stop: 10/18/20 20:59 Last Admin: 09/18/20 21:08 Dose: 25 mg Documented by: Miscellaneous Information (Pharmacist Discharge Med Rec Consult) 1 ea N/A UD PRN PRN Reason: Consult Stop: 10/18/20 18:59 Nitroglycerin (Nitroglycerin 2% Ointment 30gm Tube) 1 inch EXT Q6H SABA Stop: 10/19/20 11:59 Last Admin: 09/19/20 11:38 Dose: 1 inch Documented by: Pantoprazole Sodium (Pantoprazole 40 Mg Tab) 40 mg PO BID SABA Stop: 10/18/20 20:59 Last Admin: 09/19/20 09:19 Dose: Not Given Documented by: Polyethylene Glycol (Polyethylene (Miralax) 17 Gm Pack) 17 gm PO DAILY PRN PRN Reason: Constipation Stop: 10/18/20 18:59 Sertraline HCl (Sertraline Hcl 50 Mg Tablet) 50 mg PO QPM SABA Stop: 10/18/20 20:59 Last Admin: 09/18/20 21:10 Dose: 50 mg Documented by:
--- NOTE | 2020-09-19 18:00 | Consultation Report ---
DATE OF CONSULTATION: 09/19/2020 REASON FOR CONSULTATION: Falls. HISTORY OF PRESENT ILLNESS: The patient is an 84-year-old female with hypertension, hyperlipidemia, thyroid cancer, surgical hypothyroidism, chronic kidney disease, obstructive sleep apnea, depression, panic, presented to the ER for ongoing lightheadedness and ambulatory dysfunction. The PCP had been seeing her weekly for some symptoms that occurred after a fall and felt that she had a flattened left nasolabial fold and sent her into the hospital. About a month ago, she was standing in her home and she had an unwitnessed fall. Her son thinks she may have briefly lost consciousness and fallen, and then when she hit the ground, woke up, she was able to get up on her own, but had hit the back of her head and her coccyx. By her son's report, an x-ray of the coccyx showed a fracture and a CT of the head was unremarkable. It was unclear to me if she had a cervical spine done. At baseline, she has some mild impairment of balance, but she seemed generally weaker and moving more slowly, possibly due to pain. Because of her ongoing symptoms and the left facial droop, she was referred to the Emergency Room. The patient's outpatient CT of the head was consistent with right frontal calcifications, stable since 2013, most consistent with a cavernous malformation. Her son also gives a history of a known intracranial aneurysm. The patient complains of some instability and lightheadedness upon standing. She initially had had some neck pain and some headaches, but they seemingly have resolved. There is no new numbness or weakness. She denies any double vision, slurred speech, unilateral weakness or numbness. She denies vertigo with change in position or rolling in bed. I believe that multiple medications were changed as an outpatient. Her trazodone was discontinued. Her gabapentin was weaned without improvement of symptoms. The patient apparently has been somewhat confused since admission. Her son indicates that at baseline, she has no significant cognitive dysfunction. She no longer drives, but she does some bill paying and he assists her. She does her own cooking and she watches his small children. Her labs were notable for hemoglobin of 11.8, chloride of 108, BUN 32, normal transaminases. Total cholesterol 176, LDL 102, HDL 45. TSH 1.28. Urinalysis; trace leukocyte esterase, greater than 30 epithelial cells, hyaline casts 5-10. MRI of the brain, which I have reviewed, shows age-related involutional changes with moderate to advanced subcortical periventricular microangiopathic disease. Small chronic lacunar infarctions are noted in the right cerebellar hemisphere. CTA of head and neck shows a tiny 2 mm aneurysm of the right [employer]. There is no evidence of significant hemodynamic stenosis in the vertebral arteries or the carotid arteries. PHYSICAL EXAMINATION: Vitals are notable for mild bradycardia with a pulse rate of 51. Most recent vitals are 36.8, 87, 20, 178/94, 93% on room air. The patient is awake and alert, marginally agitated. She thinks she is in a storage room. She believes she has been in the hospital for 4 days. She is oriented to month, but not year. There is no right/left confusion. Naming is unremarkable. Head is normocephalic, atraumatic. Pupils are equal, round, reactive to light. The optic nerves are grossly normal. Normal bennett and motility. There is a flattening of the left nasolabial fold. Parenthetically, the patient's son indicates that both he and his had not noted any difference in her face. There is a minor jaw tremor. No resting tremor or cogwheel rigidity are noted. There is full strength, no drift. Normal rapid alternating movements. Normal [id number], [id number]. No dysdiadochokinesia. Reflexes are mildly diffusely brisk. There is no clonus. Toes are downgoing. Gait is unremarkable. Tandem is mildly unsteady consistent with age. Provocative head maneuvers are negative and proprioception is intact in the toes as well as light touch is symmetric bilaterally. IMPRESSION AND PLAN: 1. Fall, possible syncope. To complete workup, I would recommend an echo and telemetric monitoring, possibly a monitor car operator upon discharge. Without history, it is difficult to know what that represented. I would also do an EEG, although I think seizure is unlikely. 2. Increased falling after a fall with complaints of lightheadedness and instability with standing. Agree with having discontinued the trazodone, which can cause orthostasis. I would check orthostatic blood pressures in this patient. I would recommend a CT of the cervical spine. 3. The patient appears to have some hospital-induced delirium. The patient appears to take clonazepam. I would make sure that she still has access to that, so that she does not become delirious from withdrawal. This does raise the question whether or not there could be some underlying cognitive dysfunction. We will check some appropriate laboratories in that regard. That could be vascular in nature. 4. 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 Dr. Moffett will take over the case tomorrow. BELLE
[2020-09-19] MEDS: ASPIRIN 81 MG ECTAB PO SCH (20:15)
[2020-09-19] MEDS: FENOFIBRATE NANOCRYSTALLIZED 145 MG TABLET PO SCH (20:16)
[2020-09-19] MEDS: SERTRALINE HCL 50 MG TABLET PO SCH (20:16)
[2020-09-19] MEDS: LOSARTAN POTASSIUM 50 MG TAB PO SCH (20:21)
--- NOTE | 2020-09-19 20:51 | CT Scan Report ---
CT OF THE CERVICAL SPINE CLINICAL HISTORY: Neck pain status post trauma. Increased unsteadiness. COMPARISON STUDY: No previous studies for comparison. CT DOSE: 199.51 mGy.cm TECHNIQUE: CT scan of the cervical spine was performed from the skull base to the thoracic inlet. Hilda ges are reviewed in the axial, sagittal, and coronal planes. IV contrast was not administered for thi s examination. A dose lowering technique was utilized adhering to the principles of ALARA. FINDINGS: There is no apical pneumothorax. No acute fractures are visualized. There are moderately advanced multilevel degenerative changes. There is reversal the normal cervical lordosis. Mild anterolisthesis of C3 on C4, C4 on C5, and C7 on T1 are likely arthritic. IMPRESSION: 1. No acute fractures 2. Moderately advanced multilevel degenerative changes with multiple mild subluxations, likely arthri tic ACT 112: Negative or not required by law. Electronically signed by: Aitf Contreras M.D. 09/19/2020 8:50 PM
--- NOTE | 2020-09-19 22:19 | Electrocardiogram Report ---
Test Reason : Blood Pressure : / mmHG Vent. Rate : 056 BPM Atrial Rate : 056 BPM P-R Int : 188 ms QRS Dur : 080 ms QT Int : 390 ms P-R-T Axes : 049 018 023 degrees QTc Int : 376 ms Sinus bradycardia Otherwise normal ECG When compared with ECG of 07-OCT-2018 16:48, No significant change was found Confirmed by Silas Muller ([id number]) on 09/19/2020 10:18:31 PM Referred By: REFERRED SELF Confirmed By:Silas Muller
[2020-09-20] MEDS: LEVOTHYROXINE SODIUM 125 MCG TABLET PO SCH (05:27)
[2020-09-20] MEDS: NITROGLYCERIN 2% OINTMENT 30GM TUBE EXT SCH (05:53)
[2020-09-20 07:42] LABS: BUN Creatinine Ratio 27.8 (10-20); Calcium 10.1 mg/dl (8.5-10.1); Creatinine Clr Calc Pharmacy 40.7 ml/min; Est GFR (African American) 57.9 ml/min; Potassium 3.7 mmol/L (3.5-5.1)
[2020-09-20] MEDS: PANTOprazole 40 MG TAB PO SCH ×2 (08:05→21:03)
[2020-09-20] MEDS: HEPARIN SOD 5,000 UNIT/0.5 ML VIAL SQ SCH ×2 (08:06→21:05)
[2020-09-20 08:18] LABS: Folate (Folic Acid) > 20.00 ng/ml (>5.38); Vitamin B12 575 pg/ml (193-986)
--- NOTE | 2020-09-20 12:20 | Electroencephalogram ---
EEG Procedure Note Date of Service September 20, 2020 Start / End Times Start Time: 526 End Time: [address] Freeman History Syncopal event vs seizure Home Medication List Medication Instructions Recorded Confirmed Type aspirin [Aspir-81] 81 mg PO QPM 10/07/18 09/18/20 History atenolol 25 mg PO QPM 10/07/18 09/18/20 History clonazepam [Klonopin] 1 mg PO TID PRN 10/07/18 09/18/20 History fenofibric acid (choline) 135 mg PO QPM 10/07/18 09/18/20 History meclizine 12.5 mg PO TID PRN 10/07/18 09/18/20 History pantoprazole 40 mg PO BID 10/07/18 09/18/20 History sertraline 50 mg PO QPM 10/07/18 09/18/20 History cholecalciferol (vitamin D3) 50 mcg PO DAILY 09/18/20 09/18/20 History ibuprofen 800 mg PO Q6H 09/18/20 09/18/20 History levothyroxine 125 mcg PO DAILY 09/18/20 09/18/20 History losartan 25 mg PO PM 09/18/20 09/18/20 History Inpatient Medication List Aspirin (Aspirin 81 Mg Ectab) 81 mg PO QPM [facility] Stop: 10/18/20 20:59 Last Admin: 09/19/20 20:15 Dose: 81 mg Documented by: [id number] Admin: 09/18/20 21:06 Dose: 81 mg Documented by: [id number] Clonazepam (Clonazepam 1 Mg Tab) 1 mg PO TID PRN PRN Reason: Anxiety Stop: 10/18/20 18:59 Last Admin: 09/19/20 20:15 Dose: 1 mg Documented by: [id number] Admin: 09/19/20 00:17 Dose: 1 mg Documented by: [id number] Fenofibrate (Fenofibrate Nanocrystallized 145 Mg Tablet) 145 mg PO QPM [facility]; Protocol Stop: 10/18/20 20:59 Last Admin: 09/19/20 20:16 Dose: 145 mg Documented by: [id number] Admin: 09/18/20 21:07 Dose: 145 mg Documented by: [id number] Heparin Sodium (Porcine) (Heparin Sod 5,000 Unit/0.5 Ml Vial) 5,000 units SQ Q12 SABA Stop: 10/18/20 20:59 Last Admin: 09/20/20 08:06 Dose: 5,000 units Documented by: [id number] Admin: 09/19/20 20:17 Dose: Not Given Documented by: [id number] Admin: 09/19/20 09:19 Dose: Not Given Documented by: [id number] Admin: 09/18/20 21:08 Dose: 5,000 units Documented by: [id number] Levothyroxine Sodium (Levothyroxine Sodium 125 Mcg Tablet) 125 mcg PO DAILYBB SABA Stop: 10/19/20 06:29 Last Admin: 09/20/20 05:27 Dose: 125 mcg Documented by: [id number] Admin: 09/19/20 06:25 Dose: Not Given Documented by: [id number] Losartan Potassium (Losartan Potassium 50 Mg Tab) 50 mg PO PM SABA Stop: 10/19/20 20:59 Last Admin: 09/19/20 20:21 Dose: 50 mg Documented by: [id number] Pantoprazole Sodium (Pantoprazole 40 Mg Tab) 40 mg PO BID SABA Stop: 10/18/20 20:59 Last Admin: 09/20/20 08:05 Dose: 40 mg Documented by: [id number] Admin: 09/19/20 20:16 Dose: 40 mg Documented by: [id number] Admin: 09/19/20 09:19 Dose: Not Given Documented by: [id number] Admin: 09/18/20 21:09 Dose: 40 mg Documented by: [id number] Sertraline HCl (Sertraline Hcl 50 Mg Tablet) 50 mg PO QPM SABA Stop: 10/18/20 20:59 Last Admin: 09/19/20 20:16 Dose: 50 mg Documented by: [id number] Admin: 09/18/20 21:10 Dose: 50 mg Documented by: [id number] Discontinued Medications Gadobutrol (Gadobutrol 65ml Vial) 7 ml IV ONCE ONE Stop: 09/18/20 22:55 Last Admin: 09/18/20 22:54 Dose: 7 ml Documented by: [id number] Sodium Chloride (Nss 1000ml) 1,000 mls @ 125 mls/hr IV .Q8H SABA Stop: 09/18/20 21:29 Last Infusion: 09/18/20 21:38 Dose: 0 mls/hr Documented by: [id number] Admin: 09/18/20 14:14 Dose: 125 mls/hr Documented by: [id number] Lorazepam (Ativan) 0.5 mg in 1 mls @ 1 mls/min IV ONE ONE Stop: 09/18/20 19:01 Last Admin: 09/18/20 22:21 Dose: 1 mls/min Documented by: [id number] Ioversol (Optiray 350 500ml) 111 ml IV ONCE ONE Stop: 09/18/20 14:54 Last Admin: 09/18/20 14:53 Dose: 111 ml Documented by: [id number] Losartan Potassium (Losartan Potassium 25 Mg Tab) 25 mg PO PM SABA Stop: 10/18/20 20:59 Last Admin: 09/18/20 21:08 Dose: 25 mg Documented by: [id number] Nitroglycerin (Nitroglycerin 2% Ointment 30gm Tube) 1 inch EXT Q6H SABA Stop: 10/19/20 11:59 Last Admin: 09/20/20 05:53 Dose: Not Given Documented by: [id number] Admin: 09/19/20 23:26 Dose: Not Given Documented by: [id number] Admin: 09/19/20 18:32 Dose: 1 inch Documented by: [id number] Admin: 09/19/20 11:38 Dose: 1 inch Documented by: [id number] Description This is a 21 electrode EEG with a single channel dedicated to limited EKG. The electrodes were placed in accordance with the International 10-20 system. This EEG was done as a bedside recording is of reasonable technical quality with few or no muscle movement artifacts. Video analysis patient movement and behavior was obtained. Photic stimulation was performed. Initially there was some mild drowsiness which cleared by the midway point of the tracing with full wakefulness appeared to be the clinical state Initially the EEG had a somewhat slow background rhythm in the upper theta range but then as wakefulness seemingly improved the frequency slipped into the lower alpha range of about 9 Hz maximum frequency and about 20 V maximum amplitude. This was at times poorly sustained and the rhythm was then in the upper theta range at 7 to 8 Hz. This activity is maximum posterior head regions and symmetrical. Centrally moderate voltage mid to slightly low amplitude theta activity is seen in symmetrical fashion intermixed with occasional waveforms in the delta range. Beta activity seen bifrontally Photic symmetrical to minimal driving response with no photo myogenic or photoparoxysmal component Drowsiness is not associate with any potential epileptogenic activity There is no evidence for potentially epileptogenic activity at any time during the recording either during wakefulness or during brief duration drowsiness Interpretation Minimally abnormal EEG with poorly sustained alpha rhythm and overall slightly increased amounts of theta activity consistent with a mild nonspecific generalized nonfocal encephalopathy without accompanying epileptogenic features Clinical Correlation This EEG is mildly to minimally diffusely abnormal consistent with a nonspecific encephalopathy reveals no lateralizing features and no potentially epileptogenic activity. Cj Moffett MD
[2020-09-20] MEDS: clonazePAM 1 MG TAB PO PRN (12:34)
[2020-09-20] MEDS ORDERED: clonazePAM 1 MG TAB PO PRN (13:49)
[2020-09-20] MEDS ORDERED: clonazePAM 0.5 MG TAB PO PRN (13:52)
--- NOTE | 2020-09-20 14:53 | Hospitalist Progress Note ---
Date of Service September 20, 2020 Assessment & Plan (1) Dizziness: (2) Syncope: Pt is 84 y/o F with PMH HTN, HLD, thyroid CA s/p surgery and post surgical hypothyroidism, CKD III, MERY, depression, panic disorder presented to the ER for ongoing lightheadedness and ambulatory dysfunction. Syncopal episode 08/19/20. F/U PCP with CT head without contrast: no acute intracranial abnormality, no acute territorial infarct mass or hemorrhage right frontal lobe hypodense focus stable since 2013, most consistent with cavernous venous malformation, chronic brain parenchymal volume loss, anterior and posterior circulation arterial atherosclerotic health postop occasion. Transthoracic echo: EF 55-59%, grade 1 diastolic dysfunction. Carotid artery duplex with less than 50% stenosis of right and left internal carotid artery. Recurrent follow-ups with PCP for continued lightheadedness, ambulatory dy sfunction, headache, memory problems and had trazodone discontinued as well as gabapentin weaned and discontinued without improvement of symptoms. On the day of admission PCP noticed left facial drooping and was referred to ER In ER vitals stable, no leukocytosis H&H: 11.8/37, no significant electrolyte abnormality, TSH WNL, UA not consistent with UTI DDX: CVA, vertigo, post concussive syndrome, arrhythmia Lyme IgG and IgM negative CTA of the neck and CT of the head were unremarkable-see the full documentation in diagnostics section MRI of the brain did not show any stroke and/or hemorrhage Echo that was done in 2019 was unremarkable Does not have any focal neurological deficit Appreciate neurology input and recommendation EEG has been unremarkable Agitation since this morning Noted to be pleasantly confused and this morning and requiring one-to-one sitter She wants to be discharged and she believes that she does not have any illness that she needs to be in the hospital Has had a long discussion with the patient specially for continued care to decrease the blood pressure which may be causing part of the problem She will also have PT and OT evaluation before she can be discharged This was discussed in detail with the son and he is going to talk to his mom to persuade No psychiatric consult at this time Has been on Klonopin 1 mg 2 times a day as needed-will not change the m edications for now No more agitation but remains anxious and pleasantly confused We will decrease the dose of Klonopin as an outpatient (3) Ambulatory dysfunction: Ambulatory dysfunction and recurrent falls -PT OT -Fall precautions -PT and OT recommended rehab -Has had a long discussion with the son who wants his mom to be home. He is going to provide more home support and also will continue with the home PT as an outpatient -Discussed with the case maker -Like to be discharged tomorrow after neuro evaluation today (4) Bradycardia: Pulse noted in 50s in ER -Hold atenolol for now -Rate remains controlled (5) HTN (hypertension): -Continue losartan, hold atenolol as above -Blood pressure was noted to be very high this morning systolic more than 190 -Her beta-gabo has been on hold due to bradycardia -Nitropaste was given -Atenolol 25 mg a very small dose will be discontinued -Losartan dose can be increased to control the blood pressure -Reasonably controlled now (6) HLD (hyperlipidemia): Patient with history of statin intolerance -Continue fenofibrate (7) CKD (chronic kidney disease), stage III: Cr: 1.1 (baseline 1.1-1.2) -Avoid nephrotoxic agents when possible (8) Depression: Anxiety -Continue sertraline, as needed clonazepam (9) Hypothyroidism: History of thyroid CA s/p surgery. Postsurgical hypothyroidism TSH 1.2 -Continue levothyroxine (10) MERY (obstructive sleep apnea): -Does not use CPAP DVT Prophylaxis -Heparin SQ DNR/DNI as per discussion with pt Follows with Dr Roe for routine care Likely discharge tomorrow Admission and Anticipated Discharge Date Admission Date: September 18, 2020 Subjective 09/19/2020 The patient was seen and examined in medical telemetry unit She was admitted with dizziness and ambulatory dysfunction She has been very confused and wants to leave the hospital even if she dies since this morning She has been under one-to-one observation since this morning Denies any symptoms to me and wanted to leave the hospital as soon as possible Not been aggressive 09/20/2020 The patient was seen and examined in medical telemetry unit She has been feeling much better and seems to be less confused today She denies any significant symptoms She has had physical therapy and the recommended that she should go to rehab She is not requiring any more one-to-one sitter Review of Systems Review of Systems: All systems reviewed and are unremarkable except as noted below Neurologic: Alert, awake and oriented. No focal neuro deficit Psychiatric: + anxiety and + confusion (Pleasantly confused); no irritability Physical Exam Physical Exam: Sitting on a chair without any acute distress Constitutional: well developed, well nourished and + obese; not ill appearing Eyes: PERRL, conjunctivae normal, anicteric sclerae ENMT: external ear and nose normal, oropharynx normal Neck: trachea midline, no thyromegaly Respiratory: no respiratory distress Auscultation: lungs clear to auscultation bilaterally Cardiovascular: Rate/Rhythm: regular rate and regular rhythm Heart Sounds: no murmur Extremities: + edema (Trace edema bilaterally) Gastrointestinal (Abdomen): Inspection/Auscultation: normal bowel sounds; abdomen not distended Percussion/Palpation: abdomen soft; abdomen nontender Neurologic: Alert, awake. Pleasantly confused, generally weak but no focal neuro deficit Psychiatric: Affect: + anxious affect Mood: + anxious mood Lymphatic: no cervical or axillary lymphadenopathy Results & Data Results & Data ([facility] [place]) Vital Signs (Past 12 Hours) Vital Signs Temp Pulse Pulse Resp BP BP Pulse Ox 09/20/20 11:23 36.7 C 98 H 16 116/76 94 09/20/20 07:30 36.6 C 86 16 114/72 96 09/20/20 06:53 36.4 C L 85 16 100/49 L 93 09/20/20 03:46 36.5 C 107 H 16 150/77 H 93
--- NOTE | 2020-09-20 15:49 | Communication Note ---
Date of Service: September 20, 2020 I have interviewed and examined Mrs. Burnett today reviewed her chart discussed her case with Kathleen Freeman MD and reviewed her consultation note. 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 and in part due to her right knee issue and she remains pleasantly confused today but insists that she is going home although discharge plans are certainly not set him concrete by any means and we are awaiting physical therapy recommendations, and potentially a transfer to a rehabilitation facility according to what I can determine from chart review At this point she has no acute neurologic deficits, she has some cognitive impairment that probably is more of a vascular based issue than a degenerative but a mixed picture could certainly be operating her and her chronic benzodiazepine use is being addressed by psychiatry Neurology is going to sign off the case at this time would be happy to take a look at her on an outpatient basis if her primary care physician feels this is necessary but I really do not think she needs any further neurologic investigation although at some point an official neuropsych evaluation to address the severity of her baseline cognition might not be a bad idea but this could be arranged through her primary care provider Cj Moffett MD
[2020-09-20] MEDS: FENOFIBRATE NANOCRYSTALLIZED 145 MG TABLET PO SCH (21:03)
[2020-09-20] MEDS: LOSARTAN POTASSIUM 50 MG TAB PO SCH (21:04)
[2020-09-20] MEDS: ASPIRIN 81 MG ECTAB PO SCH (21:04)
[2020-09-20] MEDS: SERTRALINE HCL 50 MG TABLET PO SCH (21:33)
[2020-09-21] MEDS: LEVOTHYROXINE SODIUM 125 MCG TABLET PO SCH ×2 (06:00→06:26)
[2020-09-21] MEDS: HEPARIN SOD 5,000 UNIT/0.5 ML VIAL SQ SCH (07:35)
[2020-09-21] MEDS: PANTOprazole 40 MG TAB PO SCH (07:35)
--- NOTE | 2020-09-21 10:25 | Hospitalist Progress Note ---
Date of Service September 21, 2020 Assessment & Plan (1) Dizziness: (2) Syncope: Pt is 84 y/o F with PMH HTN, HLD, thyroid CA s/p surgery and post surgical hypothyroidism, CKD III, MERY, depression, panic disorder presented to the ER for ongoing lightheadedness and ambulatory dysfunction. Syncopal episode 08/19/20. F/U PCP with CT head without contrast: no acute intracranial abnormality, no acute territorial infarct mass or hemorrhage right frontal lobe hypodense focus stable since 2013, most consistent with cavernous venous malformation, chronic brain parenchymal volume loss, anterior and posterior circulation arterial atherosclerotic health postop occasion. Transthoracic echo: EF 55-59%, grade 1 diastolic dysfunction. Carotid artery duplex with less than 50% stenosis of right and left internal carotid artery. Recurrent follow-ups with PCP for continued lightheadedness, ambulatory dy sfunction, headache, memory problems and had trazodone discontinued as well as gabapentin weaned and discontinued without improvement of symptoms. On the day of admission PCP noticed left facial drooping and was referred to ER In ER vitals stable, no leukocytosis H&H: 11.8/37, no significant electrolyte abnormality, TSH WNL, UA not consistent with UTI DDX: CVA, vertigo, post concussive syndrome, arrhythmia Lyme IgG and IgM negative CTA of the neck and CT of the head were unremarkable-see the full documentation in diagnostics section MRI of the brain did not show any stroke and/or hemorrhage Echo that was done in 2018 was unremarkable Does not have any focal neurological deficit Appreciate neurology input and recommendation EEG has been unremarkable No further work-up as per neurology No more syncopal episode and no arrhythmias and/or high blood pressure She will be discharged home this afternoon with home health nurse and outpatient PT Agitation since this morning Noted to be pleasantly confused and this morning and requiring one-to-one sitter She wants to be discharged and she believes that she does not have any illness that she needs to be in the hospital Has had a long discussion with the patient specially for continued care to decrease the blood pressure which may be causing part of the problem She will also have PT and OT evaluation before she can be discharged This was discussed in detail with the son and he is going to talk to his mom to persuade No psychiatric consult at this time Has been on Klonopin 1 mg 2 times a day as needed-will not change the medicatio ns for now No more agitation but remains anxious and pleasantly confused We will decrease the dose of Klonopin as an outpatient She is pleasantly confused but does not have any acute confusion as such (3) Ambulatory dysfunction: Ambulatory dysfunction and recurrent falls -PT OT -Fall precautions -PT and OT recommended rehab -Has had a long discussion with the son who wants his mom to be home. He is going to provide more home support and also will continue with the home PT as an outpatient -Discussed with the senior case manager -Like to be discharged tomorrow after neuro evaluation today (4) Bradycardia: Pulse noted in 50s in ER -Hold atenolol for now -Rate remains controlled (5) HTN (hypertension): -Continue losartan, hold atenolol as above -Blood pressure was noted to be very high this morning systolic more than 190 -Her beta-gabo has been on hold due to bradycardia -Nitropaste was given -Atenolol 25 mg a very small dose will be discontinued -Losartan dose can be increased to control the blood pressure -Reasonably controlled now (6) HLD (hyperlipidemia): Patient with history of statin intolerance -Continue fenofibrate (7) CKD (chronic kidney disease), stage III: Cr: 1.1 (baseline 1.1-1.2) -Avoid nephrotoxic agents when possible (8) Depression: Anxiety -Continue sertraline, as needed clonazepam (9) Hypothyroidism: History of thyroid CA s/p surgery. Postsurgical hypothyroidism TSH 1.2 -Continue levothyroxine (10) MERY (obstructive sleep apnea): -Does not use CPAP DVT Prophylaxis -Heparin SQ DNR/DNI as per discussion with pt Follows with Dr Roe for routine care Will discharge home this afternoon Admission and Anticipated Discharge Date Admission Date: September 18, 2020 Subjective 09/19/2020 The patient was seen and examined in medical telemetry unit She was admitted with dizziness and ambulatory dysfunction She has been very confused and wants to leave the hospital even if she dies since this morning She has been under one-to-one observation since this morning Denies any symptoms to me and wanted to leave the hospital as soon as possible Not been aggressive 09/20/2020 The patient was seen and examined in medical telemetry unit She has been feeling much better and seems to be less confused today She denies any significant symptoms She has had physical therapy and the recommended that she should go to rehab She is not requiring any more one-to-one sitter 09/21/2020 The patient was seen and examined in medical telemetry unit She has been feeling much better and feels homesick She is more cooperative and wants to go home Denies any significant symptoms Review of Systems Review of Systems: All systems reviewed and are unremarkable except as noted below Neurologic: Alert, awake and oriented. No focal neuro deficit Psychiatric: + anxiety and + confusion (Pleasantly confused); no irritability Physical Exam Physical Exam: Sitting on a chair without any acute distress Constitutional: well developed, well nourished and + obese; not ill appearing Eyes: PERRL, conjunctivae normal, anicteric sclerae ENMT: external ear and nose normal, oropharynx normal Neck: trachea midline, no thyromegaly Respiratory: no respiratory distress Auscultation: lungs clear to auscultation bilaterally Cardiovascular: Rate/Rhythm: regular rate and regular rhythm Heart Sounds: no murmur Extremities: + edema (Trace edema bilaterally) Gastrointestinal (Abdomen): Inspection/Auscultation: normal bowel sounds; abdomen not distended Percussion/Palpation: abdomen soft; abdomen nontender Musculoskeletal: No acute arthritis in any joint Psychiatric: Affect: + anxious affect Mood: + anxious mood Lymphatic: no cervical or axillary lymphadenopathy Results & Data Results & Data ([facility]) Vital Signs (Past 12 Hours) Vital Signs Temp Pulse Resp BP BP Pulse Ox 09/21/20 07:21 36.3 C L 87 18 120/78 91 09/20/20 22:37 36.4 C L 83 18 125/77 94
--- NOTE | 2020-09-21 15:15 | Discharge Summary ---
Date of Service September 21, 2020 Admission HPI Per Admitting Provider Pt is 84 y/o F with PMH HTN, HLD, thyroid CA s/p surgery and post surgical hypothyroidism, CKD III, MERY, depression, panic disorder presented to the ER for ongoing lightheadedness and ambulatory dysfunction. Patient had episode of standing watching her grandkids and next thing she knows her kids were getting her up off the floor. She saw her PCP on 08/19/2020 for the syncopal episode and had workup inclucing CT head without contrast which did not show any acute intracranial abnormality, no acute territorial infarct mass or hemorrhage. Transthoracic echo: EF 55-59%, grade 1 diastolic dysfunction. Carotid artery dup zoraida with less than 50% stenosis of right and left internal carotid artery. She had follow-up with PCP 08/30/2020 and had continued lightheadedness, ambulatory dysfunction and recurrent falls, and headache and trazodone was stopped. Additional follow-up 09/05/2020 gabapentin was tapered then discontinued. Had another follow-up with PCP today and slight left facial drooping was noticed and patient was referred to ER. Patient states since fall 1 month ago has had headaches, dizziness described as spinning as well as lightheadedness with standing and walking. Patient states has had difficulty walking, she feels like bilateral legs are weak. States since her right knee surgery her right leg is chronically less ROM and weaker. She does report has had several falls. Patient states having trouble with her memory as well. She also feels like she has been having some dysphagia since fall and has choked on food a couple of times. Prior to fall patient states did not have any neuro symptoms or ambulatory problems. She also reports has had intermittent nonproductive cough. C/O right shoulder discomfort with ROM since initial fall. Denies any known recurrent syncopal episodes. Denies fever/chills, diaphoresis, N/V/D/C, vision changes, neck pain, CP, SOB, orthopnea, palpitations, sore throat, otalgia, rhinorrhea, abdominal pain, paresthesias, extremity edema, rashes, urinary symptoms. Admission Exam Per Admitting Provider Physical Exam: General: no acute distress, WDWN Head: normocephalic, atraumatic Eyes: PERRL, EOM's intact, conjunctiva non-injected, anicteric ENT: normal inspection external ears, nose, mucous membranes moist Neck: supple, trachea midline, non-tender Lungs: clear, no respiratory distress, no wheezing/rhonchi/rales CV: RRR, no murmur, no JVD, no pretibial edema Abd: normal BS, soft, non-tender Ext: no cyanosis, no calf tenderness Neuro: A&O x 3, normal affect, +slight left facial droop noted, No nystagmus, Hearing grossly intact, no dysarthria, Shoulder shrug intact, Tongue is midline Skin: warm, dry Principal Diagnosis Ambulatory dysfunction, near syncope, MERY, depression with panic disorder, hypertension. Discharge Exam Constitutional well developed, well nourished and + obese; not ill appearing Eyes PERRL, conjunctivae normal, anicteric sclerae ENMT external ear and nose normal, oropharynx normal Neck trachea midline, no thyromegaly Respiratory no respiratory distress Auscultation: lungs clear to auscultation bilaterally Cardiovascular Rate/Rhythm: regular rate and regular rhythm Heart Sounds: no murmur Extremities: + edema (Trace edema bilaterally) Gastrointestinal (Abdomen) Inspection/Auscultation: normal bowel sounds; abdomen not distended Percussion/Palpation: abdomen soft; abdomen nontender Psychiatric Affect: + anxious affect Mood: + anxious mood Lymphatic no cervical or axillary lymphadenopathy Discharge Data Allergies Allergy/AdvReac Type Severity Reaction Status Date / Time Bqeivdu-Hys-Gcn Reductase AdvReac Intermediate MUSCLE Verified 09/18/20 15:12 Inhibitor ACHES-ELEVATED CK WITH LIPITOR PER HISTORY Consultations 09/18/20 15:11 ED Decision to Admit Stat 09/18/20 19:00 Consult Neurology Routine Ordered Studies 09/18/20 13:59 CT angio head wo/w Stat CT angio neck with con Stat 09/18/20 19:00 MR brain wo/w con Routine 09/19/20 16:51 CT cervical spine wo con Urgent Hospital Course (1) Dizziness: (2) Syncope: Pt is 84 y/o F with PMH HTN, HLD, thyroid CA s/p surgery and post surgical hypothyroidism, CKD III, MERY, depression, panic disorder presented to the ER for ongoing lightheadedness and ambulatory dysfunction. Syncopal episode 08/19/20. F/U PCP with CT head without contrast: no acute intracranial abnormality, no acute territorial infarct mass or hemorrhage right frontal lobe hypodense focus stable since 2013, most consistent with cavernous venous malformation, chronic brain parenchymal volume loss, anterior and posterior circulation arterial atherosclerotic health postop occasion. Transthoracic echo: EF 55-59%, grade 1 diastolic dysfunction. Carotid artery duplex with less than 50% stenosis of right and left internal carotid artery. Recurrent follow-ups with PCP for continued lightheadedness, ambulatory dysfunction, headache, memory problems and had trazodone discontinued as well as gabapentin weaned and discontinued without improvement of symptoms. On the day of admission PCP noticed left facial drooping and was referred to ER In ER vitals stable, no leukocytosis H&H: 11.8/37, no significant electrolyte abnormality, TSH WNL, UA not consistent with UTI DDX: CVA, vertigo, post concussive syndrome, arrhythmia Lyme IgG and IgM negative CTA of the neck and CT of the head were unremarkable-see the full documentation in diagnostics section MRI of the brain did not show any stroke and/or hemorrhage Echo that was done in 2019 was unremarkable Does not have any focal neurological deficit Appreciate neurology input and recommendation EEG has been unremarkable No further work-up as per neurology No more syncopal episode and no arrhythmias and/or high blood pressure She will be discharged home this afternoon with home health nurse and outpatient PT Agitation since this morning Noted to be pleasantly confused and this morning and requiring one-to-one sitter She wants to be discharged and she believes that she does not have any illness that she needs to be in the hospital Has had a long discussion with the patient specially for continued care to decrease the blood pressure which may be causing part of the problem She will also have PT and OT evaluation before she can be discharged This was discussed in detail with the son and he is going to talk to his mom to persuade No psychiatric consult at this time Has been on Klonopin 1 mg 2 times a day as needed-will not change the medications for now No more agitation but remains anxious and pleasantly confused We will decrease the dose of Klonopin as an outpatient She is pleasantly confused but does not have any acute confusion as such (3) Ambulatory dysfunction: Ambulatory dysfunction and recurrent falls -PT OT -Fall precautions -PT and OT recommended rehab -Has had a long discussion with the son who wants his mom to be home. He is going to provide more home support and also will continue with the home PT as an outpatient -Discussed with the case management specialist -Like to be discharged tomorrow after neuro evaluation today (4) Bradycardia: Pulse noted in 50s in ER -Hold atenolol for now -Rate remains controlled (5) HTN (hypertension): -Continue losartan, hold atenolol as above -Blood pressure was noted to be very high this morning systolic more than 190 -Her beta-gabo has been on hold due to bradycardia -Nitropaste was given -Atenolol 25 mg a very small dose will be discontinued -Losartan dose can be increased to control the blood pressure -Reasonably controlled now (6) HLD (hyperlipidemia): Patient with history of statin intolerance -Continue fenofibrate (7) CKD (chronic kidney disease), stage III: Cr: 1.1 (baseline 1.1-1.2) -Avoid nephrotoxic agents when possible (8) Depression: Anxiety -Continue sertraline, as needed clonazepam (9) Hypothyroidism: History of thyroid CA s/p surgery. Postsurgical hypothyroidism TSH 1.2 -Continue levothyroxine (10) MERY (obstructive sleep apnea): -Does not use CPAP DVT Prophylaxis -Heparin SQ DNR/DNI as per discussion with pt Follows with Dr Roe for routine care Will discharge home this afternoon Total Time Total Time Spent Total Time Spent (In Minutes): 40 minutes Total Time Includes: Examination of the Patient, Discharge Planning, Medication Reconciliation and Communication With Other Providers Discharge Plan Discharge Items Patient Disposition: Home - Home Health Services Reason For Visit: DIZZINESS Discharge Diagnosis: Ambulatory dysfunction, near syncope, MERY, depression with panic disorder, hypertension. Condition on Discharge: Fair Activity: As commented below Activity Comment: Continue with outpatient physical therapy Non-emergency contact: Primary Care Provider Call non-emergency contact if: you have any medication questions and your symptoms worsen Follow-up/Referrals: Issac Roe, DO [Primary Care Provider] - (Your doctor's office will call you with an appointment within 7 days.) Diet: Heart Healthy and Low Sodium (2gm) Addtl Attending Provider Instructions: Please take extreme precaution to avoid falls. Use rolling walker to move around at home We have decreased your Klonopin doses to 0.5 mg twice daily as needed Your atenolol has been stopped due to low heart rate Your losartan has been increased to 50 mg to control blood pressure Pending Studies at Discharge: No Stand-Alone Forms: [facility] [employer], Smoking Cessation Medications and DC Order Prescriptions: Continued pantoprazole 40 mg Tablet,Delayed Release (Dr/Ec) 40 mg PO BID RF: 0 meclizine 12.5 mg Tablet 12.5 mg PO TID PRN (Reason: Dizziness) RF: 0 aspirin [Aspir-81] 81 mg Tablet,Delayed Release (Dr/Ec) 81 mg PO QPM RF: 0 sertraline 50 mg Tablet 50 mg PO QPM RF: 0 fenofibric acid (choline) 135 mg Capsule,Delayed Release(Dr/Ec) 135 mg PO QPM RF: 0 levothyroxine 125 mcg tablet 125 mcg PO DAILY RF: 0 cholecalciferol (vitamin D3) 50 mcg (2,000 unit) Capsule 50 mcg PO DAILY RF: 0 Changed clonazepam [Klonopin] 1 mg Tablet 0.5 mg PO BID PRN (Reason: Anxiety) Qty: 0 RF: 0 losartan 25 mg tablet 50 mg PO PM Qty: 0 RF: 0 Discontinued atenolol 25 mg Tablet 25 mg PO QPM RF: 0 ibuprofen 800 mg Tablet 800 mg PO Q6H RF: 0 Discharge Orders: Discharge Order (Routine); Ordered 09/21/20 Ordered By: Zaria Lovett/Other Patient Handouts: 5 Steps for Eating Healthier, A1C Admission Data Admit Date/Time: 09/18/20 16:41 Attending Provider: Zaria Monique Admit Provider: Jean Arita Primary Care Provider: Issac Roe Other Providers: Jean Arita ; Kathleen Freeman ; [facility] Other Interventions: Discharge Summary Assessment (RN) Last Done: 09/21/20 11:49
--- NOTE | 2020-10-01 09:53 | Coding Query ---
CODING QUERY To promote full compliance with coding requirements relating to patient care, provider participation is requested in all cases of outsole flexer uncertainty. Please assist us with the question(s) below: Coding Question(s): Patient admitted with dizziness and ambulatory dysfunction. Please document, if known or suspected, the etiology of the patient's symptoms. Thanks for your help! Agustin Johnson [facility] Physician's Response(s): Multifactorial-More likely Vascular and in complicated by Medications like Trazodone,Benzodiazepines..No definitive cause found. Principal Diagnosis: "that condition established after study, to be chiefly responsible for occasioning the admission of the patient to the hospital for care." Co-Existing Principal Diagnosis: "when two or more diagnoses equally meet the criteria for principal diagnosis as determined by the circumstances of admission, diagnostic work up, and/or therapy provided, and the Alphabetic Index, Tabular List, or another coding guideline does not provide sequencing direction, any one of the diagnoses may be sequenced first." "When the physician has documented what appears to be a current diagnosis in the body of the record, but has not included the diagnosis in the final diagnostic statement, the physician should be asked whether the diagnosis should be added." (Source Coding Clinic 2 QTR90. p3-4) BELLE
== END 2020-09-21 12:31 | disposition home health service (06) | DRG 149 ==
LOC: ED 12:37 → SUATTDRO 16:41 → 2W 16:41

== ENCOUNTER 2021-01-01 19:09 | Inpatient (IN) ==
[2021-01-01] MEDS ORDERED: ACETAMINOPHEN 500 MG TAB PO STA (23:20)
--- NOTE | 2021-01-01 23:20 | Emergency Department Note ---
Impression & Plan Fall, Left leg pain, Left leg swelling, Fracture of tibial plateau, Acute head trauma ED Provider Note NAME: BRIGIDO LITTLE AGE: 85 SEX: F : 1935 ARRIVES VIA: Walk-In INFORMANT: [Patient] ED PROVIDER(S): [Donovan Reid MD] CHIEF COMPLAINT: Leg pain HISTORY OF PRESENT ILLNESS: The patient is an 85-year-old female who states about a week ago, she fell a few times. She initially injured her right tib-fib. She has a bruise here and this seems to be improving. She injured her left tib-fib and it seemed to get a bit better but now in the last few days, the pain has worsened and she is using a walker and having a hard time getting around. The leg is more swollen. The patient is not sure why she fell a week ago. She thinks she suddenly just lost her balance or maybe even passed out. She was on her porch. She did strike her head and had a small cut to the head, she has no headache currently. She has no neck pain or back pain or chest pain. No shortness of breath or rib discomfort. She has had no urinary complaints. She has no one-sided weakness. The patient denies fever or chills. She does not take any blood thinning medications. REVIEW OF SYSTEMS: See HPI for pertinent positives and negatives. A total of ten systems were reviewed and were otherwise negative. PMHx/PSHx: See Below SOCIAL HISTORY: See Below. PHYSICAL EXAM: GENERAL: Patient is in no acute distress. HEENT: No acute trauma, normocephalic atraumatic, mucous membranes moist, no nasal congestion, no scleral icterus. NECK: No stridor, no adenopathy, no meningismus, trachea is midline. LUNGS: Clear to auscultation bilaterally, no wheeze, no rhonchi, breath sounds e qual. HEART: Without murmurs gallops or rubs, regular rate and rhythm. ABDOMEN: Soft, nontender, bowel sounds positive, no hernias, no peritonitis. EXTREMITIES: No cyanosis. There is a healing, older contusion to the right mid tib-fib. No bony discomfort. No erythema. She does have edema to the left lower extremity when compared to the right. She is tender in the area of the left knee down to the left ankle. No gross deformities. No evidence for left lower extremity neurovascular compromise. NEUROLOGIC: Oriented x 3, no acute motor or sensory deficits, no focal weakness. SKIN: No rash, no jaundice, no diaphoresis. DIFFERENTIAL DIAGNOSIS: Infection, dehydration, metabolic abnormality, hypo/hyperglycemia, electrolyte disturbance, anemia, hypoxia, cardiac sources, intracerebral event, toxicologic issues, stroke, fracture, sprain, strain, DVT, TIA, as well as other pa thologies. EMERGENCY DEPARTMENT COURSE/PROCEDURES: ECG: Indication was possible syncope. The ECG shows a normal sinus rhythm with a rate of 63. There is no ST elevation, no PVCs. The QTc is 421. Continuous Cardiac Monitoring: An order was placed for continuous cardiac monitoring. The monitor shows a rate of 67 with normal sinus rhythm. MEDICAL DECISION MAKING: There is no leukocytosis or concerning anemia. There is a normal platelet count. No significant electrolyte abnormality or kidney failure. No concerning liver enzyme elevation. ECG shows a sinus rhythm, no acute ischemia. Cardiac enzyme testing x1 is not consistent with acute cardiac injury. Chest film did not show pneumonia or CHF. Films of the left knee, left tib-fib and left ankle were performed, it appears she has a nondisplaced fracture of the tibial plateau. I see no distal tib-fib fracture or ankle fracture. Brain CT showed no acute bleed or mass-effect. Left leg ultrasound does not show any DVT. CT of the left knee was performed, this result is currently pending. The patient presents after at least two falls about a week ago. She first hurt her right leg but this is improving and doing well. She then hurt her left leg which initially seemed to be doing okay but now is becoming more painful to the point where she cannot ambulate. The tibial plateau fracture certainly explains her pain. At this point, as I am waiting for the knee CT results, Dr. Dominguez has assumed care. She will review the CT findings with the patient and with orthopedics. Surgical intervention may be required. Patient was given a dose of oral Tylenol for pain. As long as she was sitting still and not bearing weight, she seemed fairly comfortable. The reason for the patient's falls last week is unclear, they may have been mechanical in nature. No concerning findings on today's medical work-up. Past Med/Surg History Medical History Cerebral aneurysm "[facility] 07/22/13 3 mm fusiform aneurysm takeoff right [employer]" CKD (chronic kidney disease), stage III Depression Esophagitis (12/26/10) History of papillary adenocarcinoma of thyroid HLD (hyperlipidemia) HTN (hypertension) Hypertensive heart disease Hypothyroidism MERY (obstructive sleep apnea) Panic disorder (12/26/10) Thyroid cancer Surgical History Status post appendectomy Status post thyroidectomy Family History Other Diabetes Hypertension Social History Smoking Status: Never smoker Second Hand Exposure: No; Hx Alcohol Use: No Hx Substance Use: No Preferred Language: Uzbek Communication Ability: Effective Land[place] Required: No Beliefs That Will Affect Care: None Current Living Situation: Family Feels Safe at Home: Yes Assistive Devices: Cane and Walker Allergies Allergies Allergy/AdvReac Type Severity Reaction Status Date / Time Oykxkrt-Fla-Fwo Reductase AdvReac Intermediate MUSCLE Verified 01/02/21 08:42 Inhibitor ACHES-ELEVATED CK WITH LIPITOR PER HISTORY Home Meds Home Medications Medication Instructions Recorded Confirmed aspirin 81 mg tablet,delayed 81 mg PO QPM 10/07/18 09/18/20 release (Aspir-) fenofibric acid (choline) 135 mg 135 mg PO QPM 10/07/18 09/18/20 capsule,delayed release meclizine 12.5 mg tablet 12.5 mg PO TID PRN 10/07/18 09/18/20 pantoprazole 40 mg tablet,delayed 40 mg PO BID 10/07/18 09/18/20 release sertraline 50 mg tablet 50 mg PO QPM 10/07/18 09/18/20 cholecalciferol (vitamin D3) 50 50 mcg PO DAILY 09/18/20 09/18/20 mcg (2,000 unit) capsule levothyroxine 125 mcg tablet 125 mcg PO DAILY 09/18/20 09/18/20 Previous Rx's Medication Instructions Recorded clonazepam 1 mg tablet (Klonopin) 0.5 mg PO BID PRN #0 tab 09/21/20 losartan 25 mg tablet 50 mg PO PM #0 tab 09/21/20 Results & Data (ED) Vital Signs Vital Signs - 24 hr 01/01/21 19:32 01/02/21 01:07 01/02/21 02:00 Temperature 36.3 C L Temperature Source Temporal Artery Scan Pulse Rate 67 60 53 L Pulse Rate [Right Finger] Respiratory Rate 18 20 20 Respiratory Effort / Characteristics Non-Labored Spontaneous Respiratory Depth Normal Respiratory Pattern Regular Blood Pressure 166/76 H 208/87 H 162/85 H Blood Pressure [Right Arm] Blood Pressure Mean 106 127 110 Blood Pressure Mean [Right Arm] Blood Pressure Position [Right Arm] Pulse Oximetry 94 97 Oxygen Delivery Method Room Air Room Air Sepsis Recent Fever Within 48 Hours No Sepsis New/Unexplained Change in Mental Status No Sepsis Action Taken by Nursing No Action Required 01/02/21 03:00 01/02/21 05:00 01/02/21 06:31 Temperature Temperature Source Pulse Rate Pulse Rate [Right Finger] 67 79 58 L Respiratory Rate 18 16 16 Respiratory Effort / Characteristics Respiratory Depth Respiratory Pattern Blood Pressure Blood Pressure [Right Arm] 199/108 H 170/108 H 184/85 H Blood Pressure Mean Blood Pressure Mean [Right Arm] 138 128 118 Blood Pressure Position [Right Arm] Sitting Lying Pulse Oximetry 98 98 96 Oxygen Delivery Method Room Air Room Air Sepsis Recent Fever Within 48 Hours Sepsis New/Unexplained Change in Mental Status Sepsis Action Taken by Nursing 01/02/21 07:12 01/02/21 07:42 Temperature 36.6 C Temperature Source Oral Pulse Rate 61 Pulse Rate [Right Finger] 88 Respiratory Rate 22 20 Respiratory Effort / Characteristics Non-Labored Spontaneous Respiratory Depth Normal Respiratory Pattern Regular Blood Pressure 216/97 H Blood Pressure [Right Arm] 188/89 H Blood Pressure Mean Blood Pressure Mean [Right Arm] 122 Blood Pressure Position [Right Arm] Semi-fowlers Pulse Oximetry 98 96 Oxygen Delivery Method Room Air Room Air Sepsis Recent Fever Within 48 Hours Sepsis New/Unexplained Change in Mental Status Sepsis Action Taken by [facility] Medications Current Medication List: was personally reviewed by me Laboratory Data Attestation: I reviewed the patient's lab results. Result diagrams: 01/01/21 23:40 01/01/21 23:40 Lab Results 01/01/21 01/01/21 01/02/21 Range/Units 23:40 23:40 04:36 WBC 7.68 (4.8-10.8) K/uL RBC 3.80 L (4.2-5.4) M/uL Hgb 11.0 L (12.0-16.0) g/dL Hct 34.6 L (37-47) % MCV 91.1 (80-100) fL MCH 28.9 (25-34) pg MCHC 31.8 L (32-36) g/dL RDW Std Deviation 44.1 (36.4-46.3) fL RDW Coeff of Brandan 13.2 (11.5-14.5) % Plt Count 327 (130-400) K/uL MPV 9.3 (7.4-10.4) fL Sodium 144 (136-145) mmol/L Potassium 4.1 (3.5-5.1) mmol/L Chloride 111 H (98-107) mmol/L Carbon Dioxide 26 (21-32) mmol/L Anion Gap 7.0 (3-11) BUN 20 H (7-18) mg/dl Creatinine 0.91 (0.6-1.2) mg/dl Est Cr Clr Drug Dosing 46.8 ml/min Est GFR ( Amer) 67.6 ml/min Est GFR (Non-Af Amer) 58.3 ml/min BUN/Creatinine Ratio 22.0 H (10-20) Glucose 111 H (70-99) mg/dl Calcium 9.4 (8.5-10.1) mg/dl Magnesium 1.9 (1.8-2.4) mg/dl Total Bilirubin 0.3 (0.2-1) mg/dl AST 18 (15-37) U/L ALT 22 (12-78) U/L Alkaline Phosphatase 117 (45-117) U/L Troponin I 0.016 (0-0.045) ng/ml Total Protein 7.1 (6.4-8.2) gm/dl Albumin 3.6 (3.4-5.0) gm/dl Globulin 3.5 (2.5-4.0) gm/dl Albumin/Globulin Ratio 1.0 (0.9-2) COVID-19 Eval Order Covid19 at [facility] SARS-CoV-2 (PCR) (Negative) Blood Type Antibody Screen 01/02/21 01/02/21 Range/Units 04:36 08:26 WBC (4.8-10.8) K/uL RBC (4.2-5.4) M/uL Hgb (12.0-16.0) g/dL Hct (37-47) % MCV (80-100) fL MCH (25-34) pg MCHC (32-36) g/dL RDW Std Deviation (36.4-46.3) fL RDW Coeff of Brandan (11.5-14.5) % Plt Count (130-400) K/uL MPV (7.4-10.4) fL Sodium (136-145) mmol/L Potassium (3.5-5.1) mmol/L Chloride (98-107) mmol/L Carbon Dioxide (21-32) mmol/L Anion Gap (3-11) BUN (7-18) mg/dl Creatinine (0.6-1.2) mg/dl Est Cr Clr Drug Dosing ml/min Est GFR ( Amer) ml/min Est GFR (Non-Af Amer) ml/min BUN/Creatinine Ratio (10-20) Glucose (70-99) mg/dl Calcium (8.5-10.1) mg/dl Magnesium (1.8-2.4) mg/dl Total Bilirubin (0.2-1) mg/dl AST (15-37) U/L ALT (12-78) U/L Alkaline Phosphatase (45-117) U/L Troponin I (0-0.045) ng/ml Total Protein (6.4-8.2) gm/dl Albumin (3.4-5.0) gm/dl Globulin (2.5-4.0) gm/dl Albumin/Globulin Ratio (0.9-2) COVID-19 Eval Order SARS-CoV-2 (PCR) NEGATIVE (Negative) Blood Type A Positive Antibody Screen NEGATIVE Administered Medications Discontinued Medications Acetaminophen (Acetaminophen 500 Mg Tab) 1,000 mg PO NOW STA Stop: 01/01/21 23:21 Last Admin: 01/01/21 23:28 Dose: 1,000 mg Documented by: [id number] Atenolol (Atenolol 25 Mg Tablet) 25 mg PO NOW STA Stop: 01/02/21 05:49 Last Admin: 01/02/21 06:07 Dose: 25 mg Documented by: [id number] Atenolol (Atenolol 50 Mg Tablet) Confirm Administered Dose 50 mg .ROUTE .STK-MED ONE Stop: 01/02/21 05:52 Last Admin: 01/02/21 06:07 Dose: Not Given Documented by: [id number] Bupivacaine HCl (Bupivacaine 0.5 % 5 Mg/1 Ml Mpf 30ml Vial) Confirm Administered Dose 30 ml .ROUTE .STK-MED ONE Stop: 01/02/21 09:08 Last Admin: 01/02/21 10:47 Dose: 30 ml Documented by: [id number] Epinephrine HCl (Epinephrine Inj 1 Mg/Ml Amp) Confirm Administered Dose 1 mg .ROUTE .STK-MED ONE Stop: 01/02/21 09:08 Last Admin: 01/02/21 10:47 Dose: 0.15 mg Documented by: [id number] Fentanyl Citrate (Fentanyl Citrate 100 Mcg/2 Ml Vial) 25 mcg IV NOW ONE Stop: 01/02/21 08:31 Last Admin: 01/02/21 08:35 Dose: 25 mcg Documented by: [id number] Fentanyl Citrate (Fentanyl Citrate 100 Mcg/2 Ml Vial) 25 mcg IV Q5M PRN PRN Reason: PACU Use Only-Pain Stop: 01/02/21 19:19 Last Admin: 01/02/21 11:43 Dose: 25 mcg Documented by: [id number] Admin: 01/02/21 11:38 Dose: 25 mcg Documented by: [id number] Admin: 01/02/21 11:33 Dose: 25 mcg Documented by: [id number] Admin: 01/02/21 11:28 Dose: 25 mcg Documented by: [id number] Acetaminophen (Ofirmev) 1,000 mg in 100 mls @ 400 mls/hr IV NOW STA Stop: 01/02/21 04:42 Last Admin: 01/02/21 04:37 Dose: 400 mls/hr Documented by: [id number] Cefazolin Sodium (Ancef 2000mg) 2,000 mg in 15 mls @ 3.75 mls/min IV PREOP SABA; Protocol Stop: 01/02/21 14:00 Last Admin: 01/02/21 09:09 Dose: 3.75 mls/min Documented by: [id number] Lorazepam (Ativan) 0.5 mg in 1 mls @ 1 mls/min IV NOW STA Stop: 01/02/21 13:06 Last Admin: 01/02/21 13:15 Dose: 1 mls/min Documented by: [id number] Losartan Potassium (Losartan Potassium 25 Mg Tab) 25 mg PO NOW STA Stop: 01/02/21 04:52 Last Admin: 01/02/21 05:27 Dose: 25 mg Documented by: [id number] Imaging Data Attestation: I personally reviewed and interpreted this imaging study as follows: My Impression: Left knee, left ankle and left tib-fib films: There appears to be a tibial plateau fracture. No ankle fracture, no distal tib-fib fracture. Radiologist's Impression: Ankle X-Ray 01/01/21 23:17 XR ankle LT min 3V routine CLINICAL HISTORY: fall. Left ankle pain. COMPARISON STUDY: None. FINDINGS: Diffuse soft tissue swelling within the left ankle. No fracture or dislocation. A plantar heel spur is noted. IMPRESSION: No fractures within the left ankle. ACT 112: Negative or not required by law. Electronically signed by: Kelvin Espinosa M.D. 01/02/2021 7:[address] 01/01/21 23:[address] DOSE: 537.48 mGy.cm HISTORY: fall TECHNIQUE: Multiaxial CT images of the head were performed without the use of intravenous contrast. Automated exposure control was utilized for this study. A dose lowering technique was utilized adhering to the principles of ALARA. Comparison: Head CT 09/18/2020. Findings: The paranasal sinuses and mastoid air cells are clear. The calvarium and skull base are intact. There is no mass, hematoma, midline shift, acute infarct. White matter hypodensity is nonspecific but suggestive of microvascular ischemic change. The ventricles and sulci demonstrate mild age-related involutional changes. Stable 7 mm hyperdense focus within the right frontal lobe. This may represent a calcification or cavernoma. Impression: No significant change compared to the prior study. No acute intracranial abnormality. ACT 112: Negative or not required by law. Electronically signed by: Kelvin Espinosa M.D. 01/02/2021 7:13 AM Knee X-Ray 01/01/21 23:17 XR tibia fibula LT 2V, XR knee LT 1 or 2V routine CLINICAL HISTORY: fall. Left knee and left lower leg pain. COMPARISON STUDY: None. FINDINGS: Soft tissue swelling within the left knee and left lower leg. There is a nondisplaced medial tibial plateau fracture which extends to the lateral tibial spine. The distal femur and fibula are intact. Trace knee effusion. Anterior soft tissue swelling within the left knee. The fibula appears intact. The bones are osteopenic. IMPRESSION: Nondisplaced medial tibial plateau fracture which extends to the lateral tibial spine. ACT 112: Negative or not required by law. Electronically signed by: Kelvin Espinosa M.D. 01/02/2021 7:28 AM Tibia/Fibula X-Ray 01/01/21 23:17 XR tibia fibula LT 2V, XR knee LT 1 or 2V routine CLINICAL HISTORY: fall. Left knee and left lower leg pain. COMPARISON STUDY: None. FINDINGS: Soft tissue swelling within the left knee and left lower leg. There is a nondisplaced medial tibial plateau fracture which extends to the lateral tibial spine. The distal femur and fibula are intact. Trace knee effusion. Anterior soft tissue swelling within the left knee. The fibula appears intact. The bones are osteopenic. IMPRESSION: Nondisplaced medial tibial plateau fracture which extends to the lateral tibial spine. ACT 112: Negative or not required by law. Electronically signed by: Kelvin Espinosa M.D. 01/02/2021 7:28 AM Venous Doppler Study 01/01/21 23:17 LEFT LOWER EXTREMITY VENOUS DOPPLER HISTORY: Left leg swelling and pain. poss clot, swollen COMPARISON STUDY: None. FINDINGS: There is normal compressibility, flow, and augmentation within the left lower extremity deep venous system. IMPRESSION: No DVT within the left lower extremity. ACT 112: Negative or not required by law. Electronically signed by: Kelvin Espinosa M.D. 01/02/2021 7:[address] 01/02/21 00:[address] DOSE: 142.72 mGy.cm HISTORY: Left knee pain. Fall. poss tib plat fx TECHNIQUE: Multiaxial CT images of the left knee were performed and reformatted in the sagittal and coronal plane without the use of contrast. A dose lowering technique was utilized adhering to the principles of ALARA. COMPARISON: Left knee radiograph 01/01/2021. FINDINGS: There is confirmation of the medial tibial plateau fracture which extends to the lateral tibial spine. No significant displacement/depression. The distal femur and proximal fibular intact. No fractures within the patella. There is moderate cartilage space narrowing within the medial and lateral compartments of the knee. There is a trace knee effusion. There is mild subcutaneous edema within the knee. IMPRESSION: Nondisplaced fracture within the medial tibial plateau which extends to the lateral tibial spine. ACT 112: Negative or not required by law. Electronically signed by: Kelvin Espinosa M.D. 01/02/2021 7:31 AM Tibia/Fibula X-Ray 01/02/21 09:30 FL tibia/fibula LT 2V CLINICAL HISTORY: LT ORIF TIBIAL PLATEAU COMPARISON STUDY: Left knee radiographs January 01, 2021. CT of the left knee January 02, 2021. FLUOROSCOPY TIME: 71.7 seconds. FLUOROSCOPIC IMAGES: 2 FINDINGS: Fluoroscopy was provided during internal fixation of the left tibial plateau fracture with plate and screws. Alignment appears anatomic. Hardware is intact. There are no unexpected radiopaque foreign bodies. IMPRESSION: Fluoroscopy provided during internal fixation of the left tibial plateau fracture. ACT 112: Negative or not required by law. Electronically signed by: Luis Rosen M.D. 01/02/2021 11:[address] without contrast: No acute intracranial finding or significant interval change. There is a 6 mm hyperdensity in the right frontal lobe which was felt stable. White matter hypodensities most likely represent small vessel ischemic change. Global cerebral volume loss. Left leg ultrasound: There was no acute DVT. Subcutaneous edema at the popliteal fossa and calf was seen. Head Trauma GCS Score: 15 Discharge Plan Visit Data Chief Complaint: Foot Injury/Pain Stated Complaint: FALL- INJURED LEFT FOOT AND ANKLE ED Provider: Donovan Reid Discharge Problem: Fall, Left leg pain, Left leg swelling, Fracture of tibial plateau, Acute head trauma Patient Disposition: Admitted As Inpatient Condition: Good Discharge Instructions Interventions: ED Discharge Assessment Last Done: 01/02/21 07:12
[2021-01-01 23:53] LABS: Hematocrit (blood only) 34.6 % (37-47); Mean Corpuscular Hemoglobin 28.9 pg (25-34); Mean Corpuscular Hgb Conc 31.8 g/dL (32-36); Mean Corpuscular Volume 91.1 fL (80-100); Mean Platelet Volume 9.3 fL (7.4-10.4); Platelet Count 327 K/uL (130-400); RDW Coefficient of Variation 13.2 % (11.5-14.5); RDW Standard Deviation 44.1 fL (36.4-46.3); White Blood Count 7.68 K/uL (4.8-10.8)
[2021-01-02 00:09] LABS: Albumin Level 3.6 gm/dl (3.4-5.0); Calcium 9.4 mg/dl (8.5-10.1); Creatinine Clr Calc Pharmacy 46.8 ml/min; Est GFR (African American) 67.6 ml/min; Est GFR (Non-African American) 58.3 ml/min; Potassium 4.1 mmol/L (3.5-5.1)
[2021-01-02 00:14] LABS: Bilirubin,Total 0.3 mg/dl (0.2-1); Globulin 3.5 gm/dl (2.5-4.0); Total Protein 7.1 gm/dl (6.4-8.2); Troponin I 0.016 ng/ml (0-0.045)
--- NOTE | 2021-01-02 03:56 | Emergency Department Note ---
ED Visit Note Patient signed out to me by Dr. Reid. Awaiting CT of the knee. Please see his note for additional details. Patient with extensive evaluation otherwise due to a fall and possible syncopal event. The rest of her evaluation was otherwise unremarkable. Patient noted to have swelling around the left knee and proximal tib-fib area as well as pain. CT left knee: Findings consistent with nondisplaced acute fracture through the medial aspect of lateral tibial plateau and tibial eminence and extending to medial tibial metaphysis. Soft tissue swelling. Small joint effusion. Right knee total arthroplasty visualized on projection radiograph. Radiologist: Aj Saucedo MD [id number]: Pt and son updated on CT findings. They state prior orthopedic surgeon who performed her right knee surgery is . They have no preference and would like to use whoever is on-call. 0400: Case discussed with Dr. Smith, on-call orthopedic surgery. He recommends admission by the hospitalist team patient in the morning to examine the leg and discussed with the patient and family their options. Recommends the patient have a Covid swab in case of operative repair, remain on bedrest and be n.p.o. Does not advise any other splinting/immobilization at this time. 0415: Patient and son updated at bedside. Patient upset as she wants to go faiza e. Extensive bedside discussion regarding her injury and need for additional orthopedic evaluation to discuss appropriate treatment options. We discussed concern given if nonoperative she would need to be nonweightbearing and patient already requires use of a walker and lives alone which would necessitate additional intervention by family to assist with her ADLs versus possible placement in inpatient rehab. Patient eventually agreeable to plan for admission as proposed by orthopedics. Case discussed with hospitalist. . : Fall Qualifiers: Encounter type: initial encounter Qualified Code(s): W19.XXXA - Unspecified fall, initial encounter Fracture of tibial plateau Qualifiers: Encounter type: initial encounter Fracture type: closed Laterality: left Qualified Code(s): S82.142A - Displaced bicondylar fracture of left tibia, initial encounter for closed fracture Acute head trauma Qualifiers: Encounter type: initial encounter Qualified Code(s): S09.90XA - Unspecified injury of head, initial encounter
[2021-01-02] MEDS ORDERED: ACETAMINOPHEN 1,000 MG/100 ML VIAL IV STA (04:28)
[2021-01-02] MEDS ORDERED: LOSARTAN POTASSIUM 25 MG TAB PO STA (04:51)
[2021-01-02 05:03] LABS: Magnesium 1.9 mg/dl (1.8-2.4)
[2021-01-02] MEDS ORDERED: ATENOLOL 25 MG TABLET PO STA (05:48)
[2021-01-02] MEDS ORDERED: ATENOLOL 50 MG TABLET ONE (05:51)
--- NOTE | 2021-01-02 06:33 | History & Physical Report ---
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 (No recent follow-up with [facility] [place] Neurosurgery.) GERD, stable on regimen thyroid cancer status post surgery postsurgical hypothyroidism, euthyroid as of recent TSH from a few months back chronic anemia, hemoglobin at baseline Hyperglycemia likely prediabetes, hemoglobin A1c of 5.8 last October 2020 Medical telemetry given elevated BP Facilitate missed home BP meds (losartan and atenolol) and titrate as necessary [facility] consult Re: Left tibia fracture (Patient already seen at the ER by Dr. Smith who recommends surgery.) No medical contraindication to surgery if patient/family agreeable to attendant procedural benefits and risks. Acceptable risk for medical complications. Delirium precautions given agitation from confinement from 2 months ago. DVT prophylaxis. SCDs RE surgery Full code Patient's son requesting updates from providers. Christine Dillon Burnett, contact #[phone]. Text document was generated using [employer] voice recognition software. It may contain grammatical or spelling errors. Kindly contact undersigned for clarification of any documentation item in question. History of Present Illness Chief Complaint: Increased left leg pain and swelling Primary Care Provider: Dr. Jasbir Cason (Patient's new PCP. Patient has not met him.) History obtained from patient, family, and records. Medical history significant for hypertension, hyperlipidemia, PVD, history cerebral aneurysm as per records, MERY not on CPAP as per records, GERD, thyroid cancer status post surgery, postsurgical hypothyroidism, chronic anemia (baseline hemoglobin of 11), anxiety/mood disorder. Last confinement September 2020 for dizziness/syncope. Episodic agitation during confinement. Last week, patient had a fall at her front porch. No chest pain, no S OB. No syncope, no LOC. Bilateral lower leg pain more on the left. Patient subsequently noted worsening swelling on the left leg. Patient brought to the ER last night for evaluation. 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 Baseline Functionality : Still able to do housework at home without rest/exertional chest pain, S OB prior to injury Allergies Allergy/AdvReac Type Severity Reaction Status Date / Time Jismrrw-Gwl-Wvt Reductase AdvReac Intermediate MUSCLE Verified 09/18/20 15:12 Inhibitor ACHES-ELEVATED CK WITH LIPITOR PER HISTORY Home Medications Medication Instructions Recorded Confirmed Type aspirin 81 mg tablet,delayed 81 mg PO QPM 10/07/18 09/18/20 History release (Aspir-) fenofibric acid (choline) 135 mg 135 mg PO QPM 10/07/18 09/18/20 History capsule,delayed release meclizine 12.5 mg tablet 12.5 mg PO TID PRN 10/07/18 09/18/20 History pantoprazole 40 mg tablet,delayed 40 mg PO BID 10/07/18 09/18/20 History release sertraline 50 mg tablet 50 mg PO QPM 10/07/18 09/18/20 History cholecalciferol (vitamin D3) 50 50 mcg PO DAILY 09/18/20 09/18/20 History mcg (2,000 unit) capsule levothyroxine 125 mcg tablet 125 mcg PO DAILY 09/18/20 09/18/20 History clonazepam 1 mg tablet (Klonopin) 0.5 mg PO BID PRN #0 tab 09/21/20 09/18/20 Rx losartan 25 mg tablet 50 mg PO PM #0 tab 09/21/20 09/18/20 Rx Past Med/Surg History Medical History Cerebral aneurysm "MRA [facility] 07/22/13 3 mm fusiform aneurysm takeoff right [employer]" CKD (chronic kidney disease), stage III Depression Esophagitis (12/26/10) History of papillary adenocarcinoma of thyroid HLD (hyperlipidemia) HTN (hypertension) Hypertensive heart disease Hypothyroidism MERY (obstructive sleep apnea) Panic disorder (12/26/10) Thyroid cancer Surgical History Status post appendectomy Status post thyroidectomy Family History Other Diabetes Hypertension Social History Smoking Status: Never smoker Second Hand Exposure: No; Hx Alcohol Use: No Hx Substance Use: No Preferred Language: Thai Communication Ability: Effective Manager Emergency Required: No Beliefs That Will Affect Care: None Current Living Situation: Family Feels Safe at Home: Yes Assistive Devices: Cane and Walker Review of Systems Review of Systems: As per HPI, all 10 systems reviewed, all other ROS negative Physical Exam Physical Exam: GENERAL: Slightly uncomfortable, pleasant, no respiratory distress SKIN: Pallor, warm HEENT: Pale palpebral conjunctivae, no ptosis, dry buccal mucosa NECK : Supple, no tenderness CHEST : CTA, no tenderness HEART : RRR, no obvious murmurs ABDOMEN: Some distention, nontender EXTREMITIES : michelle LE swelling, LLE tenderness, no other conspicuous deformities noted NEUROLOGIC : Coherent, no facial asymmetry, mild hearing impairment, no other gross focality Results & Data Results & Data ([facility]) Vital Signs (Past 12 Hours) Vital Signs Temp Pulse Pulse Resp BP BP Pulse Ox 01/02/21 06:31 58 L 16 184/85 H 96 01/02/21 05:00 79 16 170/108 H 98 01/02/21 03:00 67 18 199/108 H 98 01/02/21 02:00 53 L 20 162/85 H 97 01/02/21 01:07 60 20 208/87 H 01/01/21 19:32 36.3 C L 67 18 166/76 H 94 Laboratory Results Laboratory Results WBC 7.68 K/uL (4.8-10.8) 01/01/21 23:40 RBC 3.80 M/uL (4.2-5.4) L 01/01/21 23:40 Hgb 11.0 g/dL (12.0-16.0) L 01/01/21 23:40 Hct 34.6 % (37-47) L 01/01/21 23:40 MCV 91.1 fL (80-100) 01/01/21 23:40 MCH 28.9 pg (25-34) 01/01/21 23:40 MCHC 31.8 g/dL (32-36) L 01/01/21 23:40 RDW Std Deviation 44.1 fL (36.4-46.3) 01/01/21 23:40 RDW Coeff of Brandan 13.2 % (11.5-14.5) 01/01/21 23:40 Plt Count 327 K/uL (130-400) 01/01/21 23:40 MPV 9.3 fL (7.4-10.4) 01/01/21 23:40 Sodium 144 mmol/L (136-145) 01/01/21 23:40 Potassium 4.1 mmol/L (3.5-5.1) 01/01/21 23:40 Chloride 111 mmol/L (98-107) H 01/01/21 23:40 Carbon Dioxide 26 mmol/L (21-32) 01/01/21 23:40 Anion Gap 7.0 (3-11) 01/01/21 23:40 BUN 20 mg/dl (7-18) H 01/01/21 23:40 Creatinine 0.91 mg/dl (0.6-1.2) 01/01/21 23:40 Est Cr Clr Drug Dosing 46.8 ml/min 01/01/21 23:40 Est GFR ( Amer) 67.6 ml/min 01/01/21 23:40 Est GFR (Non-Af Amer) 58.3 ml/min 01/01/21 23:40 BUN/Creatinine Ratio 22.0 (10-20) H 01/01/21 23:40 Glucose 111 mg/dl (70-99) H 01/01/21 23:40 Calcium 9.4 mg/dl (8.5-10.1) 01/01/21 23:40 Magnesium 1.9 mg/dl (1.8-2.4) 01/01/21 23:40 Total Bilirubin 0.3 mg/dl (0.2-1) 01/01/21 23:40 AST 18 U/L (15-37) 01/01/21 23:40 ALT 22 U/L (12-78) 01/01/21 23:40 Alkaline Phosphatase 117 U/L (45-117) 01/01/21 23:40 Troponin I 0.016 ng/ml (0-0.045) 01/01/21 23:40 Total Protein 7.1 gm/dl (6.4-8.2) 01/01/21 23:40 Albumin 3.6 gm/dl (3.4-5.0) 01/01/21 23:40 Globulin 3.5 gm/dl (2.5-4.0) 01/01/21 23:40 Albumin/Globulin Ratio 1.0 (0.9-2) 01/01/21 23:40 COVID-19 Eval Order Covid19 at [facility] 01/02/21 04:36 SARS-CoV-2 (PCR) NEGATIVE (Negative) 01/02/21 04:[address] head: No significant change compared to the prior study. No acute intracranial abnormality. CT left knee: Nondisplaced fracture within the medial tibial plateau which extends to the lateral tibial spine. LLE venous Dopplers: No DVT within the left lower extremity. EKG as per my interpretation: Rate 65, NSR, normal axis, no ischemia
--- NOTE | 2021-01-02 06:50 | Orthopedic Consultation ---
Date of Consultation January 02, 2021 Assessment & Plan (1) Left medial tibial plateau fracture: Discussed the diagnosis with the patient and her son. This is a potentially unstable pattern injury. Therefore she is a candidate for surgery in the form of open reduction internal fixation of her left medial tibial plateau fracture. Risks and benefits of surgery were discussed as well as alternatives and expected outcomes. After reviewing all these patient and her son would like to proceed with surgery. She has been n.p.o. since yesterday evening. Covid test was negative. Therefore we will proceed to the operating room this morning. Admit to the internal medicine service after surgery due to her age and medical comorbidities. Plan on aspirin for DVT prophylaxis after surgery. History of Present Illness Reason for Consultation: Right tibial plateau fracture History of Present Illness 85-year-old female, lives alone, medical history significant for hypertension, chronic kidney disease, and GERD, sustained 2 ground-level falls within the last 1 week. These happened at home. She was doing okay until a couple days ago when she noticed the leg was swelling and hurting her with weightbearing. Pain is in the medial aspect of the knee. Nonradiating. Achy in character. Denies any previous problems with this left knee. She has had a right total knee replacement in the past. No numbness or tingling down the left leg. She is accompanied by her son today. Her son brought her to the emergency room where x- rays were obtained demonstrating a medial tibial plateau fracture. Orthopedics was consulted. Patient was seen and examined in the emergency room. She denies any loss of consciousness or head injury from either the falls. Allergies Allergy/AdvReac Type Severity Reaction Status Date / Time Wrqrcel-Ffb-Sfh Reductase AdvReac Intermediate MUSCLE Verified 09/18/20 15:12 Inhibitor ACHES-ELEVATED CK WITH LIPITOR PER HISTORY Home Medications Medication Instructions Recorded Confirmed Type aspirin 81 mg tablet,delayed 81 mg PO QPM 10/07/18 09/18/20 History release (Aspir-) fenofibric acid (choline) 135 mg 135 mg PO QPM 10/07/18 09/18/20 History capsule,delayed release meclizine 12.5 mg tablet 12.5 mg PO TID PRN 10/07/18 09/18/20 History pantoprazole 40 mg tablet,delayed 40 mg PO BID 10/07/18 09/18/20 History release sertraline 50 mg tablet 50 mg PO QPM 10/07/18 09/18/20 History cholecalciferol (vitamin D3) 50 50 mcg PO DAILY 09/18/20 09/18/20 History mcg (2,000 unit) capsule levothyroxine 125 mcg tablet 125 mcg PO DAILY 09/18/20 09/18/20 History clonazepam 1 mg tablet (Klonopin) 0.5 mg PO BID PRN #0 tab 09/21/20 09/18/20 Rx losartan 25 mg tablet 50 mg PO PM #0 tab 09/21/20 09/18/20 Rx Patient History Medical History Cerebral aneurysm "MRA [facility] 07/22/13 3 mm fusiform aneurysm takeoff right CTRS" CKD (chronic kidney disease), stage III Depression Esophagitis (12/26/10) History of papillary adenocarcinoma of thyroid HLD (hyperlipidemia) HTN (hypertension) Hypertensive heart disease Hypothyroidism MERY (obstructive sleep apnea) Panic disorder (12/26/10) Thyroid cancer Surgical History Status post appendectomy Status post thyroidectomy Family History Other Diabetes Hypertension Social History Smoking Status: Never smoker Second Hand Exposure: No; Hx Alcohol Use: No Hx Substance Use: No Preferred Language: Cape Verdean Communication Ability: Effective Assistant Professor Of Art Required: No Beliefs That Will Affect Care: None Current Living Situation: Family Feels Safe at Home: Yes Assistive Devices: Cane and Walker Physical Exam Physical Exam: On exam she has tenderness to palpation of the medial tibial plateau. She has 2+ edema distal to the knee joint in this left leg. Palpable dorsalis pedis and posterior tibial pulses. Skin is intact. Intact motor function and sensation. She is actually able to do a straight leg raise. Results & Data ([facility]) Vital Signs (Past 12 Hours) Vital Signs Temp Pulse Pulse Resp BP BP Pulse Ox 01/02/21 06:31 58 L 16 184/85 H 96 01/02/21 05:00 79 16 170/108 H 98 01/02/21 03:00 67 18 199/108 H 98 01/02/21 02:00 53 L 20 162/85 H 97 01/02/21 01:07 60 20 208/87 H 01/01/21 19:32 36.3 C L 67 18 166/76 H 94 Diagnostic Findings X-rays and CT scan of the left knee done in the emergency room demonstrate a minimally displaced medial tibial plateau fracture. Bone appears osteopenic.
--- NOTE | 2021-01-02 07:13 | Ultrasound Report ---
LEFT LOWER EXTREMITY VENOUS DOPPLER HISTORY: Left leg swelling and pain. poss clot, swollen COMPARISON STUDY: None. FINDINGS: There is normal compressibility, flow, and augmentation within the left lower extremity muriel p venous system. IMPRESSION: No DVT within the left lower extremity. ACT 112: Negative or not required by law. Electronically signed by: Kelvin Espinosa M.D. 01/02/2021 7:12 AM
--- NOTE | 2021-01-02 07:14 | CT Scan Report ---
HEAD CT NONCONTRAST CT DOSE: 537.48 mGy.cm HISTORY: fall TECHNIQUE: Multiaxial CT images of the head were performed without the use of intravenous contrast. A utomated exposure control was utilized for this study. A dose lowering technique was utilized adheri ng to the principles of ALARA. Comparison: Head CT 09/18/2020. Findings: The paranasal sinuses and mastoid air cells are clear. The calvarium and skull base are int act. There is no mass, hematoma, midline shift, acute infarct. White matter hypodensity is nonspecifi c but suggestive of microvascular ischemic change. The ventricles and sulci demonstrate mild age-rela jo involutional changes. Stable 7 mm hyperdense focus within the right frontal lobe. This may repres ent a calcification or cavernoma. Impression: No significant change compared to the prior study. No acute intracranial abnormality. ACT 112: Negative or not required by law. Electronically signed by: Kelvin Espinosa M.D. 01/02/2021 7:13 AM
--- NOTE | 2021-01-02 07:27 | XRay Report ---
XR ankle LT min 3V routine CLINICAL HISTORY: fall. Left ankle pain. COMPARISON STUDY: None. FINDINGS: Diffuse soft tissue swelling within the left ankle. No fracture or dislocation. A plantar h eel spur is noted. IMPRESSION: No fractures within the left ankle. ACT 112: Negative or not required by law. Electronically signed by: Kelvin Espinosa M.D. 01/02/2021 7:26 AM
--- NOTE | 2021-01-02 07:29 | XRay Report ---
XR tibia fibula LT 2V, XR knee LT 1 or 2V routine CLINICAL HISTORY: fall. Left knee and left lower leg pain. COMPARISON STUDY: None. FINDINGS: Soft tissue swelling within the left knee and left lower leg. There is a nondisplaced media l tibial plateau fracture which extends to the lateral tibial spine. The distal femur and fibula are intact. Trace knee effusion. Anterior soft tissue swelling within the left knee. The fibula appears i ntact. The bones are osteopenic. IMPRESSION: Nondisplaced medial tibial plateau fracture which extends to the lateral tibial spine. ACT 112: Negative or not required by law. Electronically signed by: Kelvin Espinosa M.D. 01/02/2021 7:28 AM
--- NOTE | 2021-01-02 07:32 | CT Scan Report ---
LEFT KNEE CT CT DOSE: 142.72 mGy.cm HISTORY: Left knee pain. Fall. poss tib plat fx TECHNIQUE: Multiaxial CT images of the left knee were performed and reformatted in the sagittal and c oronal plane without the use of contrast. A dose lowering technique was utilized adhering to the olaf Hughes. COMPARISON: Left knee radiograph 01/01/2021. FINDINGS: There is confirmation of the medial tibial plateau fracture which extends to the lateral ti bial spine. No significant displacement/depression. The distal femur and proximal fibular intact. No fractures within the patella. There is moderate cartilage space narrowing within the medial and later al compartments of the knee. There is a trace knee effusion. There is mild subcutaneous edema within the knee. IMPRESSION: Nondisplaced fracture within the medial tibial plateau which extends to the lateral tibial spine. ACT 112: Negative or not required by law. Electronically signed by: Kelvin Espinosa M.D. 01/02/2021 7:31 AM
--- NOTE | 2021-01-02 07:51 | Anesthesiology Consultation ---
Date of Service January 02, 2021 Assessment & Plan Chart Review Chart Review: Acceptable Risk for Surgery and Patient NOT seen in Pre Admission Testing Covid neg 01/02/21. Consults Requested none History Surgery Operation Date: 01/02/21 09:40 Proposed Procedures p Open Reduction Internal Fixation Tibial Plateau Fracture Left - Severo Smith MD Height/Weight Height: 5 ft 5 in Weight: 72.575 kg Allergies Allergy/AdvReac Type Severity Reaction Status Date / Time Wvcmnbr-Dqf-Fyc Reductase AdvReac Intermediate MUSCLE Verified 09/18/20 15:12 Inhibitor ACHES-ELEVATED CK WITH LIPITOR PER HISTORY Medications Home Medications Medication Instructions Recorded Confirmed Last Taken aspirin 81 mg tablet,delayed 81 mg PO QPM 10/07/18 09/18/20 09/17/20 release (Aspir-) fenofibric acid (choline) 135 mg 135 mg PO QPM 10/07/18 09/18/20 09/17/20 capsule,delayed release meclizine 12.5 mg tablet 12.5 mg PO TID PRN 10/07/18 09/18/20 Unknown pantoprazole 40 mg tablet,delayed 40 mg PO BID 10/07/18 09/18/20 09/18/20 release sertraline 50 mg tablet 50 mg PO QPM 10/07/18 09/18/20 09/18/20 cholecalciferol (vitamin D3) 50 50 mcg PO DAILY 09/18/20 09/18/20 Unknown mcg (2,000 unit) capsule levothyroxine 125 mcg tablet 125 mcg PO DAILY 09/18/20 09/18/20 09/18/20 clonazepam 1 mg tablet (Klonopin) 0.5 mg PO BID PRN #0 tab 09/21/20 09/18/20 Unknown losartan 25 mg tablet 50 mg PO PM #0 tab 09/21/20 09/18/20 Unknown NPO Date Last Intake of Fluids: 01/02/21 Time Last Intake of Fluids: 05:00 Last Intake of Fluids Comment: Sip of water Date Last Intake of Solids: 01/02/21 Time Last Intake of Solids: 05:00 Last Intake of Solids Comment: 2 Tylenol Past Medical History Medical History Cerebral aneurysm "MRA [facility] 07/22/13 3 mm fusiform aneurysm takeoff right [employer]" CKD (chronic kidney disease), stage III Depression Esophagitis (12/26/10) History of papillary adenocarcinoma of thyroid HLD (hyperlipidemia) HTN (hypertension) Hypertensive heart disease Hypothyroidism MERY (obstructive sleep apnea) Panic disorder (12/26/10) Thyroid cancer Admission 09/21/20: Pt is 84 y/o F with PMH HTN, HLD, thyroid CA s/p surgery and post surgical hypothyroidism, CKD III, MERY, depression, panic disorder presented to the ER for ongoing lightheadedness and ambulatory dysfunction. Patient had episode of standing watching her grandkids and next thing she knows her kids were getting her up off the floor. She saw her PCP on 08/19/2020 for the syncopal episode and had workup inclucing CT head without contrast which did not show any acute intracranial abnormality, no acute territorial infarct mass or hemorrhage. Transthoracic echo: EF 55-59%, grade 1 diastolic dysfunction. Carotid artery duplex with less than 50% stenosis of right and left internal carotid artery. Past Family History Family History Other Diabetes Hypertension Past Surgical History Surgical History Status post appendectomy Status post thyroidectomy Social History Smoking Status: Never smoker Hx Alcohol Use: No Hx Substance Use: No Physical Exam Vital Signs Last Vital Signs Temp 36.6 C 01/02/21 07:42 Pulse 88 01/02/21 07:42 Resp 20 01/02/21 07:42 BP 188/89 H 01/02/21 07:42 Pulse Ox 96 01/02/21 07:42 Testing Laboratory Results 01/01/21 23:40 01/01/21 23:40 Electrocardiogram Date: 01/01/21 Findings: + NSR @ (63) Normal sinus rhythm Normal ECG When compared with ECG of 18-SEP-2020 13:46, No significant change was found Other Testing MRI brain 09/18/20: MRI OF THE BRAIN COMBO CLINICAL HISTORY: Dizziness. Left-sided facial droop. COMPARISON STUDY: CT of the brain dated 09/18/2020. MRI of the brain dated 07/21/2013. TECHNIQUE: MRI of the brain was performed utilizing various T1 and T2-weighted sequences in the axial, sagittal, and coronal planes. Contrast-enhanced sequences were acquired following the administration of 7 cc of Gadavist. The e xamination is modestly degraded by motion artifact. FINDINGS: Brain parenchyma: There is age-related involutional change noting moderate to advanced subcortical and periventricular microangiopathic disease. There is no hemorrhage or mass effect. There is no restricted diffusion to suggest acute is chemia. No enhancing mass lesion is identified on the postcontrast images. Samuel- white matter differentiation is preserved. Small chronic lacunar infarcts are noted in the right cerebellar hemisphere. No extra-axial fluid collection is seen. The cerebellar tonsils are normal in configuration. Ventricles, sulci, and cisterns: Prominent secondary to involutional change. Pituitary and sella: Unremarkable. Intracranial vasculature: Normal flow voids are maintained at the skull base. Orbits: The bony orbits are grossly intact. Orbital contents are normal in appearance noting bilateral ocular lens implants. Sinuses and mastoids: Clear. Calvarium: Unremarkable. Cervical cord: Partially visualized cervical spinal cord is normal in morphology and signal intensity. IMPRESSION: No acute intracranial abnormality. Head CTA 09/27: CT angio head wo/w CLINICAL HISTORY: CVA sx. Right facial droop. COMPARISON STUDY: MRI of the brain and MRA of the head July 21, 2013. Head CT July 20, 2013. TECHNIQUE: Unenhanced and arterial phase imaging of the head was performed. Intravenous injection of 111 cc of Optiray 320 IV was uneventful. Sagittal and coronal reconstructions were viewed as well as maximal intensity projections on an independent 3-D workstation. Automated exposure control was utilized for the study. A dose lowering technique was utilized adhering to the principles of ALA RA. FINDINGS: No acute intracranial hemorrhage, midline shift or mass effect is present. Ventricular system is stable. White matter hypodensities suggest small vessel disease. There are no findings to suggest acute dural sinus thrombosis or acute territorial infarct. A 7 mm hyperdensity within the white matter of the right frontal lobe shown on axial image 15 of [address] of July 20, 2013. This may reflect calcifications. This is of doubtful significance given stability. The bilateral M1, M2, A1 and A2 segments are patent. There is mild stenosis of the proximal left M1 segment. 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 There is persistence of the right posterior cerebral artery. Posterior circulation is intact. No central vessel occlusion is noted. No additional intracranial aneurysms are identified. IMPRESSION: 1. No acute intracranial findings. 2. White matter hypodensities suggestive of small vessel disease. 3. Stable 7 mm hyperdense focus within the right frontal lobe which may reflect calcifications. This is of doubtful significance. 4. No central vessel occlusion. 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
[2021-01-02] MEDS ORDERED: ceFAZolin 2,000 MG/15 ML IV PUSH IV ONE (07:54)
[2021-01-02] MEDS ORDERED: LACTATED RINGER'S 1,000 ML IV SCH (08:00)
[2021-01-02] MEDS ORDERED: ceFAZolin 2000MG 2,000 MG/15 ML SYR IV SCH (08:00)
[2021-01-02] MEDS ORDERED: fentaNYL citrate 100 MCG/2 ML VIAL IV ONE (08:30)
[2021-01-02] MEDS ORDERED: PROPOFOL IV EMULSION 10 MG/ML 20 ML VIAL IV ONE (08:58)
[2021-01-02] MEDS ORDERED: LIDOCAINE 2% 2 ML VIAL/AMP(20MG/ML) INFIL ONE (08:58)
[2021-01-02] MEDS ORDERED: ROCURONIUM BROMIDE 10 MG/ML 5 ML VIAL IV ONE (08:58)
[2021-01-02] MEDS ORDERED: fentaNYL citrate 100 MCG/2 ML VIAL ONE ×2 (08:59→10:00)
[2021-01-02] MEDS ORDERED: BUPIVACAINE 0.5 % 5 MG/1 ML MPF 30ML VIAL ONE (09:07)
[2021-01-02] MEDS ORDERED: EPINEPHrine INJ 1 MG/ML AMP ONE (09:07)
[2021-01-02] MEDS ORDERED: ONDANSETRON INJ 2 MG/ML 2 ML VIAL ONE (09:35)
[2021-01-02] MEDS ORDERED: DEXAMETHASONE SOD INJ 4 MG/ML VIAL ONE (09:35)
[2021-01-02] MEDS ORDERED: ARTIFICIAL TEARS OP OINT 3.5 GM TUBE ONE (10:01)
[2021-01-02] MEDS ORDERED: hydrALAZINE HCL 20 MG/ML VIAL ONE (10:02)
--- NOTE | 2021-01-02 10:38 | Operative Report ---
Post Operative Report Pre & Post Diagnosis Operation Date: 01/02/21 09:40 Pre-Op Diagnosis: Left Tibial Plateau Fracture, Schatzker 4 Post-Op Diagnosis: Left Tibial Plateau Fracture, Schatzker 4 I identified the patient and participated in the time-out.: Yes Procedure Operation Date: 01/02/21 09:40 Actual Procedures p Open Reduction Internal Fixation Left Tibial Plateau Fracture(Left) - Severo Smith MD Surgeon Severo Smith MD Coin Dealer SANRDO Cuenca PA-C. No resident or fellow was available to assist. Estimated Blood Loss 25 Findings Consistent with Post-Op Diagnosis Specimens None Anesthesia Type General Complications none Disposition Disposition: Recovery Room Indications 85-year-old female, fell 2 times within the last week. She was having difficulty weightbearing and knee pain so her son brought her to the emergency room yesterday evening. X-rays and CT scan were done demonstrating a medial tibial plateau fracture minimally displaced. Bone appeared osteopenic. This is unstable pattern injury. Surgery is recommended to reduce and stabilize the fracture. I had a long discussion with the patient and her son about the risks and benefits of surgery, alternatives to surgery, and expected outcomes. After reviewing all these elected proceed with surgery. All questions were answered. Informed sent was signed. Description of Procedure Patient identified in the preoperative holding area where her surgical site was marked. She was brought back to the main operating room was placed the operative table and general anesthesia was administered. All bony prominences were padded. A bump was placed underneath the ipsilateral hip. She was prepped and draped in the usual sterile fashion. Prior to incision a multidiscipline timeout was called. All in the room in agreement. We began by exsanguinating the limb with an Esmarch bandage. Tourniquet inflated 250 mmHg. An 8 cm long incision was made starting at the joint line extending distally along the proximal medial aspect of the tibia. We dissected down to subcutaneous tissues to the level of the fascia. The pes tendons were identified and L-shaped incision was made in the fascia and the pes was reflected posteriorly leaving the underlying medial collateral ligament intact. Fracture line was barely visible. We then opened up a Synthes 4-hole proximal medial plate. Under fluoroscopy we optimize the position of the plate and then secured it with K wires. Once this was in place we then used the conical screw proximally to compress the plate to the bone. 2 locking rafting screws were then placed anterior and posterior to this conical screw. Once we had our fixation of the proximal fragment we then opened up a large periarticular clamp which we used through a small stab incision in the anterolateral tibia to compress the fracture and slightly elevate the medial tibial plateau fragment until it was anatomic. We then tightened down the clamp and placed 2 distal cortical screws 3.5 mm. These were in bicortical fashion. We got an excellent bite. I then placed 2 rafting locking screws. At this point the clamp was removed and her final fluoroscopic images were obtai mike. We had an anatomic reduction and we are very happy with the position of the plate and and screws. Tourniquet was then let down. Wound is irrigated out with copious amounts normal saline. Meticulous hemostasis was ensured. The pes was loosely closed over the plate distally using 0 Vicryl sutures. The deep dermal layer was closed with 2-0 Vicryl sutures. Qi were used for the skin. She was placed into a sterile dressing. She was then awoke from anesthesia and transferred recovery in stable condition. Postoperative course: Patient be discharged from the recovery room. Patient will be nonweightbearing for the next 6 weeks to allow the fracture to heal. She can do immediate knee range of motion. Aspirin for DVT prophylaxis. I attest to the content of the Intraoperative Record and any orders documented therein. Any exceptions are noted below.
[2021-01-02] MEDS ORDERED: bisacodyL 10 MG SUPP PR PRN (10:58)
[2021-01-02] MEDS ORDERED: MAGNESIUM HYDROXIDE SUSP 30 ML UDC PO PRN (10:58)
[2021-01-02] MEDS ORDERED: diphenhydrAMINE 50 MG/ML VIAL IV PRN (10:58)
[2021-01-02] MEDS ORDERED: NALOXONE HCL 0.4 MG/1 ML VIAL/CARP IV PRN (10:58)
[2021-01-02] MEDS ORDERED: ALUMINUM/MAGNESIUM SUSP 30 ML UDC PO PRN (10:58)
[2021-01-02] MEDS ORDERED: METOCLOPRAMIDE HCL INJ 5 MG/ML 2 ML VIAL IV PRN (10:58)
--- NOTE | 2021-01-02 10:58 | Operative Report ---
Post Operative Report Pre & Post Diagnosis Operation Date: 01/02/21 09:40 Pre-Op Diagnosis: Left Tibial Plateau Fracture Post-Op Diagnosis: Left Tibial Plateau Fracture I identified the patient and participated in the time-out.: Yes Procedure Operation Date: 01/02/21 09:40 Actual Procedures p Open Reduction Internal Fixation Left Tibial Plateau Fracture(Left) - Severo Smith MD Surgeon Severo Smith MD Belly Roller SANDRO Cuenca PA-C. No resident or fellow was available to assist. Estimated Blood Loss 25 Findings Consistent with Post-Op Diagnosis Specimens none Description of Procedure I was present during the entire case assisting with positioning, prepping, draping, wound retraction, wound closure and dressing application. No fellow present. Please see Dr. Smith procedure note for specifics of the case. I attest to the content of the Intraoperative Record and any orders documented therein. Any exceptions are noted below.
--- NOTE | 2021-01-02 11:10 | Fluoroscopy Report ---
FL tibia/fibula LT 2V CLINICAL HISTORY: LT ORIF TIBIAL PLATEAU COMPARISON STUDY: Left knee radiographs January 01, 2021. CT of the left knee January 02, 2021. FLUOROSCOPY TIME: 71.7 seconds. FLUOROSCOPIC IMAGES: 2 FINDINGS: Fluoroscopy was provided during internal fixation of the left tibial plateau fracture with plate and screws. Alignment appears anatomic. Hardware is intact. There are no unexpected radiopaque foreign bodies. IMPRESSION: Fluoroscopy provided during internal fixation of the left tibial plateau fracture. ACT 112: Negative or not required by law. Electronically signed by: Luis Rosen M.D. 01/02/2021 11:09 AM
[2021-01-02] MEDS ORDERED: GLYCOPYRROLATE 0.2 MG/ML VIAL ONE (11:16)
[2021-01-02] MEDS ORDERED: NEOSTIGMINE METHYLSULFATE 1 MG/ML 10ML VIAL ONE (11:16)
[2021-01-02] MEDS ORDERED: ATROPINE SULFATE 0.1 MG/ML 10ML SYR IV PRN (11:19)
[2021-01-02] MEDS ORDERED: HYDROmorphone INJ 1 MG/ML SYRINGE IV PRN (11:19)
[2021-01-02] MEDS ORDERED: ONDANSETRON INJ 2 MG/ML 2 ML VIAL IV PRN (11:19)
[2021-01-02] MEDS ORDERED: ePHEDrine sulfate 50 MG/ML AMP IV PRN (11:19)
[2021-01-02] MEDS: fentaNYL citrate 100 MCG/2 ML VIAL IV PRN ×4 (11:28→11:43)
--- NOTE | 2021-01-02 12:01 | XRay Report ---
XR knee LT 1 or 2V routine HISTORY: 85 years-old Female Surgical Post Op status post ORIF of the left proximal tibia COMPARISON: Left knee radiographs 01/01/2021 TECHNIQUE: 2 views of the left knee FINDINGS: Status post placement of medial plate and screw fusion hardware fixating the acute proximal tibial fr acture. There is improved near anatomic alignment. The hardware appears intact. Medial and lateral sk in tito. Demineralized appearance the bones. Mild to moderate medial with mild lateral and patello femoral compartment osteoarthritis redemonstrated. There is moderate diffuse soft tissue prominence. Trace joint effusion. IMPRESSION: Status post ORIF of the acute proximal tibial fracture with expected postoperative change s. ACT 112: Negative or not required by law. The above report was generated using voice recognition software. It may contain grammatical, syntax o r spelling errors. Electronically signed by: Fabricio Desouza M.D. 01/02/2021 12:00 PM
--- NOTE | 2021-01-02 12:20 | Anesthesiology Progress Note ---
Date of Service January 02, 2021 Anesthesia Post Procedure Vital Signs Vital Signs: Temp Pulse Pulse Pulse Resp BP BP 01/02/21 12:00 36.6 C 55 L 16 110/59 L 01/02/21 11:50 57 L 16 145/67 H 01/02/21 11:40 57 L 16 144/72 H 01/02/21 11:30 61 16 141/82 H 01/02/21 11:20 64 16 160/71 H 01/02/21 11:10 66 16 166/74 H 01/02/21 11:02 36.3 C L 86 16 167/75 H 01/02/21 07:42 36.6 C 88 20 188/89 H 01/02/21 07:12 61 22 216/97 H 01/02/21 06:31 58 L 16 184/85 H 01/02/21 05:00 79 16 170/108 H 01/02/21 03:00 67 18 199/108 H 01/02/21 02:00 53 L 20 162/85 H 01/02/21 01:07 60 20 208/87 H 01/01/21 19:32 36.3 C L 67 18 166/76 H Pulse Ox 01/02/21 12:00 94 01/02/21 11:50 92 01/02/21 11:40 97 01/02/21 11:30 97 01/02/21 11:20 97 01/02/21 11:10 97 01/02/21 11:02 96 01/02/21 07:42 96 01/02/21 07:12 98 01/02/21 06:31 96 01/02/21 05:00 98 01/02/21 03:00 98 01/02/21 02:00 97 01/02/21 01:07 01/01/21 19:32 94 Pain Intensity Left Leg: Pain Intensity: 5 Transfer of Care Handoff Completed per policy Notes Mental Status: alert / awake / arousable and participated in evaluation Patient Amnestic to Procedure: Yes Nausea / Vomiting: adequately controlled Pain: adequately controlled Airway Patency, RR, SpO2: stable & adequate BP & HR: stable & adequate Hydration State: stable & adequate Anesthetic Complications: no major complications apparent and Pt Satisfied with anesthetic care
[2021-01-02] MEDS ORDERED: LORazepam 2 MG/4 ML VIAL ONE (13:03)
[2021-01-02] MEDS ORDERED: LORazepam 0.5 MG/1 ML VIAL IV STA (13:05)
[2021-01-02] MEDS ORDERED: PROMETHAZINE HCL 12.5 MG in SODIUM CHLORIDE 0.9% 50 ML IV PRN (14:26)
[2021-01-02] MEDS ORDERED: ACETAMINOPHEN 325 MG TAB PO PRN (14:26)
[2021-01-02] MEDS ORDERED: SODIUM CHLORIDE 0.45 % 1,000 ML IV SCH (14:26)
[2021-01-02] MEDS ORDERED: clonazePAM 0.5 MG TAB PO PRN (14:26)
[2021-01-02] MEDS ORDERED: MoRPHine SULFATE 2 MG/ML CARP IV PRN (14:26)
[2021-01-02] MEDS: ACETAMINOPHEN 500 MG TAB PO SCH ×2 (15:22→21:03)
[2021-01-02] MEDS: SODIUM CHLORIDE 0.9% 1000ML 1,000 ML IV SCH (15:23)
[2021-01-02] MEDS: PANTOprazole 40 MG TAB PO SCH ×2 (15:51→21:05)
--- NOTE | 2021-01-02 17:13 | Hospitalist Progress Note ---
Date of Service January 02, 2021 Assessment & Plan (1) Asymptomatic hypertensive urgency: Plan: Left Tibial Plateau Fracture S/O ORIF POD #0 by -Knee CT head:Nondisplaced fracture within the medial tibial plateau which extends to the lateral tibial spine. Pain control Wound care, activity as per orthopedics On aspirin 81 mg twice daily Bowel regimen to prevent constipation Monitor for postop anemia Continue Incentive Spirometry Hypertensive Urgency BP elevated on presentation Missed home medications on presentation, pain control. 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 [place] [facility] [place] Continue PPI Prediabetes HbA1C:6.2 No tight glycemic management needed given advanced age Chronic anemia Hb at baseline Depression Panic disorder Continue home medications Reorient frequently to minimize delirium DVT Px: Aspirin 81mg BID Code Status Full code Admission and Anticipated Discharge Date Admission Date: January 02, 2021 Subjective Patient is seen and examined at bedside Mildly confused postoperatively Denies any significant leg pain at surgical site Also denies chest pain, dyspnea, dizziness, nausea, abdominal pain Offers no other complaints No distress on exam Review of Systems Review of Systems: All systems reviewed & are unremarkable except as noted in Subjective Physical Exam Physical Exam: Physical Exam: Vitals signs as noted above General Appearance:Elderly, no apparent distress Head: normocephalic, Atraumatic Eyes: normal inspection, EOMI Neck: supple, Trachea midline Respiratory/Chest: Normal breath sounds, CTA, No accessory muscle use Cardiovascular: S1, S2, + murmur Abdomen/GI:Soft, Non tender, Bowel sounds present Extremities/Musculoskeletal:normal inspection, no edema, Left LE in surgical chance ssing Neurologic/Psych:AAOx2, grossly no focal neurological deficits Skin: normal color, warm Results & Data Results & Data ([facility]) Vital Signs (Past 12 Hours) Vital Signs Temp Pulse Pulse Pulse Resp BP BP 01/02/21 15:57 01/02/21 15:47 36.6 C 68 16 129/65 01/02/21 15:29 69 01/02/21 15:00 36.4 C L 64 18 150/78 H 01/02/21 14:00 36.4 C L 64 18 150/78 H 01/02/21 13:29 63 16 158/80 H 01/02/21 12:44 60 16 138/75 01/02/21 12:22 36.6 C 59 L 16 131/55 L 01/02/21 12:00 36.6 C 55 L 16 110/59 L 01/02/21 11:50 57 L 16 145/67 H 01/02/21 11:40 57 L 16 144/72 H 01/02/21 11:30 61 16 141/82 H 01/02/21 11:20 64 16 160/71 H 01/02/21 11:10 66 16 166/74 H 01/02/21 11:02 36.3 C L 86 16 167/75 H 01/02/21 07:42 36.6 C 88 20 188/89 H 01/02/21 07:12 61 22 216/97 H 01/02/21 06:31 58 L 16 184/85 H Pulse Ox 01/02/21 15:57 92 01/02/21 15:47 86 L 01/02/21 15:29 01/02/21 15:00 90 01/02/21 14:00 90 01/02/21 13:29 93 01/02/21 12:44 90 01/02/21 12:22 90 01/02/21 12:00 94 01/02/21 11:50 92 01/02/21 11:40 97 01/02/21 11:30 97 01/02/21 11:20 97 01/02/21 11:10 97 01/02/21 11:02 96 01/02/21 07:42 96 01/02/21 07:12 98 01/02/21 06:31 96 Laboratory Results Short CBC 01/01/21 Range/Units 23:40 WBC 7.68 (4.8-10.8) K/uL Hgb 11.0 L (12.0-16.0) g/dL Hct 34.6 L (37-47) % Plt Count 327 (130-400) K/uL BMP 01/01/21 23:40 Sodium 144 Potassium 4.1 Chloride 111 H Carbon Dioxide 26 BUN 20 H Creatinine 0.91 Glucose 111 H Calcium 9.4 Cardiac Enzymes 01/01/21 Range/Units 23:40 Troponin I 0.016 (0-0.045) ng/ml Liver Function 01/01/21 Range/Units 23:40 Total Bilirubin 0.3 (0.2-1) mg/dl AST 18 (15-37) U/L ALT 22 (12-78) U/L Alkaline Phosphatase 117 (45-117) U/L Albumin 3.6 (3.4-5.0) gm/dl
[2021-01-02] MEDS: ceFAZolin 2000MG 2,000 MG/15 ML SYR IV SCH (18:31)
[2021-01-02] MEDS: ONDANSETRON INJ 2 MG/ML 2 ML VIAL IV PRN (19:00)
[2021-01-02] MEDS ORDERED: ASPIRIN 81 MG ECTAB PO SCH (21:00)
[2021-01-02] MEDS: ATENOLOL 25 MG TABLET PO SCH (21:02)
[2021-01-02] MEDS: SERTRALINE HCL 50 MG TABLET PO SCH (21:02)
[2021-01-02] MEDS: SENNA 8.6 MG TAB PO SCH (21:03)
[2021-01-02] MEDS: DOCUSATE SODIUM 100 MG CAP PO SCH (21:04)
[2021-01-02] MEDS: LOSARTAN POTASSIUM 50 MG TAB PO SCH (21:04)
[2021-01-02] MEDS: oxyCODONE HCL IR 5 MG TAB (IMMEDIATE RELEASE) PO PRN (22:51)
[2021-01-03] MEDS: HYDROmorphone INJ 0.5 MG/0.5 ML SYR IV PRN (00:20)
[2021-01-03] MEDS: ONDANSETRON INJ 2 MG/ML 2 ML VIAL IV PRN (00:42)
[2021-01-03] MEDS: SODIUM CHLORIDE 0.9% 1000ML 1,000 ML IV SCH (01:14)
[2021-01-03] MEDS: ceFAZolin 2000MG 2,000 MG/15 ML SYR IV SCH (01:54)
[2021-01-03] MEDS: LEVOTHYROXINE SODIUM 125 MCG TABLET PO SCH (05:57)
[2021-01-03] MEDS: ACETAMINOPHEN 500 MG TAB PO SCH ×3 (05:57→20:15)
[2021-01-03 07:27] LABS: Basophils # (auto) 0.04 K/uL (0-0.2); Basophils % (auto) 0.3 %; Eosinophils # (auto) 0.03 K/uL (0-0.5); Eosinophils % (auto) 0.3 %; Hematocrit (blood only) 34.6 % (37-47); Hemoglobin 10.9 g/dL (12.0-16.0); Immature Granulocytes # (auto) 0.03 K/uL (0.00-0.02); Immature Granulocytes % (auto) 0.3 %; Lymphocytes # (auto) 0.79 K/uL (1.2-3.4); Lymphocytes % (auto) 6.8 %; Mean Corpuscular Hemoglobin 28.3 pg (25-34); Mean Corpuscular Hgb Conc 31.5 g/dL (32-36); Mean Corpuscular Volume 89.9 fL (80-100); Mean Platelet Volume 9.6 fL (7.4-10.4); Monocytes % (auto) 6.9 %; Neutrophils # (auto) 9.86 K/uL (1.4-6.5); Neutrophils % (auto) 85.4 %; Platelet Count 333 K/uL (130-400); RDW Coefficient of Variation 13.3 % (11.5-14.5); RDW Standard Deviation 43.5 fL (36.4-46.3); Red Blood Count 3.85 M/uL (4.2-5.4); White Blood Count 11.55 K/uL (4.8-10.8)
[2021-01-03] MEDS: traMADol HCL 50 MG TABLET PO PRN ×2 (07:42→23:51)
[2021-01-03] MEDS ORDERED: dexAMETHasone 4 MG TAB PO SCH (08:00)
[2021-01-03 08:24] LABS: BUN Creatinine Ratio 20.8 (10-20); Calcium 9.4 mg/dl (8.5-10.1); Creatinine Clr Calc Pharmacy 55.8 ml/min; Est GFR (Non-African American) 68.2 ml/min; Magnesium 1.8 mg/dl (1.8-2.4); Potassium 3.6 mmol/L (3.5-5.1)
[2021-01-03] MEDS: MECLIZINE 12.5 MG TAB PO PRN (08:24)
[2021-01-03] MEDS: MULTIVITAMIN TAB PO SCH (08:24)
[2021-01-03] MEDS: CHOLECALCIFEROL 1,000 UNITS 25 MCG TAB PO SCH (08:25)
[2021-01-03] MEDS: DOCUSATE SODIUM 100 MG CAP PO SCH ×2 (08:25→21:50)
[2021-01-03] MEDS: ASPIRIN 81 MG ECTAB PO SCH ×2 (08:25→20:15)
[2021-01-03] MEDS: PANTOprazole 40 MG TAB PO SCH ×2 (08:26→21:50)
--- NOTE | 2021-01-03 09:40 | Orthopedic Progress Note ---
Date of Service January 03, 2021 Assessment & Plan (1) Fracture of tibial plateau: Plan: PT/OT Nonweightbearing on left lower extremity with walker assistance Pain control with p.o. medication Ice to operative site DVT prophylaxis with DOMENICA stockings and aspirin twice daily Patient will most likely need to go to either rehab or fdc facility upon discharge Orthopedically patient seems very stable discharge will be pending hospitalist service discretion Patient will have a follow-up at our clinic in 2 weeks with SANDRO Cuenca PA-C With questions contact our clinic at [phone] Admission and Anticipated Discharge Date Admission Date: January 02, 2021 Subjective This 85-year-old female is day 1 status post left tibial plateau open reduction internal fixation. Patient states that her pain is well controlled with p.o. pain medication and ice. Patient is pleasantly Confused alert and oriented x2. She denies chest pain, shortness of breath, fever, chills, sweats, lethargy, numbness or tingling in her left lower extremity, nausea, vomiting or diarrhea. She is currently using a bedpan for urinary purposes. Review of Systems Review of Systems: All systems reviewed & are unremarkable except as noted in Subjective Physical Exam Physical Exam: Left lower extremity: External dressing and bandages were removed. Surgical incision sites are closed completely with tito in place. Patient does experience some mild tenderness to palpation circumferentially around the sites. There is mild edema and ecchymosis but no erythema, Warmth, fluctuance or drainage noted.Patient is able to perform a straight leg raise test. Knee range of motion is from 0 to 90 degrees without pain or difficulty. Quad strength is 3 out of 5. Patient is able to actively dorsi and plantarflex her foot without difficulty. Peripheral pulses 2+. Capillary fill is less than 2 seconds. Patient's calf is soft and supple nontender to palpation. She is neurovascular intact in the left lower extremity. Results & Data ([facility]) Vital Signs (Past 12 Hours) Vital Signs Temp Pulse Pulse Resp BP BP Pulse Ox 01/03/21 08:29 68 152/70 H 01/03/21 06:46 36.5 C 65 20 172/76 H 90 01/02/21 23:27 36.7 C 69 18 176/81 H 94 Laboratory Results 01/03/21 01/03/21 01/02/21 Range/Units 06:27 06:27 08:26 WBC 11.55 H (4.8-10.8) K/uL RBC 3.85 L (4.2-5.4) M/uL Hgb 10.9 L (12.0-16.0) g/dL Hct 34.6 L (37-47) % MCV 89.9 (80-100) fL MCH 28.3 (25-34) pg MCHC 31.5 L (32-36) g/dL RDW Std Deviation 43.5 (36.4-46.3) fL RDW Coeff of Brandan 13.3 (11.5-14.5) % Plt Count 333 (130-400) K/uL MPV 9.6 (7.4-10.4) fL Immature Gran % (Auto) 0.3 % Neut % (Auto) 85.4 % Lymph % (Auto) 6.8 % [place] % (Auto) 6.9 % Eos % (Auto) 0.3 % Baso % (Auto) 0.3 % Neut # (Auto) 9.86 H (1.4-6.5) K/uL Lymph # (Auto) 0.79 L (1.2-3.4) K/uL [place] # (Auto) 0.80 H (0.11-0.59) K/uL Eos # (Auto) 0.03 (0-0.5) K/uL Baso # (Auto) 0.04 (0-0.2) K/uL Immature Gran # (Auto) 0.03 H (0.00-0.02) K/uL Sodium 138 (136-145) mmol/L Potassium 3.6 (3.5-5.1) mmol/L Chloride 108 H (98-107) mmol/L Carbon Dioxide 26 (21-32) mmol/L Anion Gap 5.0 (3-11) BUN 17 (7-18) mg/dl Creatinine 0.80 (0.6-1.2) mg/dl Est Cr Clr Drug Dosing 55.8 ml/min Est GFR ( Amer) 79.0 ml/min Est GFR (Non-Af Amer) 68.2 ml/min BUN/Creatinine Ratio 20.8 H (10-20) Glucose 121 H (70-99) mg/dl Calcium 9.4 (8.5-10.1) mg/dl Magnesium 1.8 (1.8-2.4) mg/dl Blood Type A Positive Antibody Screen NEGATIVE (1) Fracture of tibial plateau Encounter type: initial encounter Fracture type: closed Laterality: left Qualified Code(s): S82.142A - Displaced bicondylar fracture of left tibia, initial encounter for closed fracture
--- NOTE | 2021-01-03 16:03 | Hospitalist Progress Note ---
Date of Service January 03, 2021 Assessment & Plan (1) Asymptomatic hypertensive urgency: Plan: Left Tibial Plateau Fracture S/O ORIF by POD #1 -Knee CT head:Nondisplaced fracture within the medial tibial plateau which extends to the lateral tibial spine. Pain control Wound care, activity as per orthopedics On aspirin 81 mg twice daily Bowel regimen to prevent constipation Monitor for postop anemia Continue Incentive Spirometry Nonweightbearing on left lower extremity with walker assistance Will likely need SNF placement Needs follow-up with orthopedics in 2 weeks PT recommends Rehab Hypertensive Urgency BP elevated on presentation Missed home medications on presentation, pain control. 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 [place] recent [place] [facility] [place] G[place] Continue PPI Prediabetes HbA1C:6.2 No tight glycemic management needed given advanced age Chronic anemia Hb at baseline Delirium H/O Depression, Panic disorder Continue home medications Reorient frequently to minimize delirium DVT Px: Aspirin 81mg BID Code Status Full code Disposition Needs Rehab placement Admission and Anticipated Discharge Date Admission Date: January 03, 2021 Subjective Patient is seen and examined at bedside Oriented during my encounter Intermittently confused as per RN Leg pain at surgical site is controlled Denies chest pain, dyspnea, dizziness, nausea, abdominal pain Review of Systems Review of Systems: All systems reviewed & are unremarkable except as noted in Subjective Physical Exam Physical Exam: Physical Exam: Vitals signs as noted above General Appearance:Elderly, no apparent distress Head: normocephalic, Atraumatic Eyes: normal inspection, EOMI Neck: supple, Trachea midline Respiratory/Chest: Normal breath sounds, CTA, No accessory muscle use Cardiovascular: S1, S2, + murmur Abdomen/GI:Soft, Non tender, Bowel sounds present Extremities/Musculoskeletal:normal inspection, no edema, Left LE in dressing Neurologic/Psych:AAOx2, grossly no focal neurological deficits Skin: normal color, warm Results & Data Results & Data ([facility]) Vital Signs (Past 12 Hours) Vital Signs Temp Pulse Pulse Pulse Resp BP Pulse Ox 01/03/21 14:54 36.7 C 92 H 24 159/77 H 90 01/03/21 11:46 36.7 C 71 18 129/67 91 01/03/21 08:29 68 152/70 H 01/03/21 07:00 64 01/03/21 06:46 36.5 C 65 20 172/76 H 90 Laboratory Results Short CBC 01/03/21 Range/Units 06:27 WBC 11.55 H (4.8-10.8) K/uL Hgb 10.9 L (12.0-16.0) g/dL Hct 34.6 L (37-47) % Plt Count 333 (130-400) K/uL BMP 01/03/21 06:27 Sodium 138 Potassium 3.6 Chloride 108 H Carbon Dioxide 26 BUN 17 Creatinine 0.80 Glucose 121 H Calcium 9.4
--- NOTE | 2021-01-03 17:00 | Electrocardiogram Report ---
Test Reason : Blood Pressure : / mmHG Vent. Rate : 063 BPM Atrial Rate : 063 BPM P-R Int : 184 ms QRS Dur : 076 ms QT Int : 412 ms P-R-T Axes : 058 023 029 degrees QTc Int : 421 ms Normal sinus rhythm Normal ECG When compared with ECG of 18-SEP-2020 13:46, No significant change was found Confirmed by Scott Palacios ([id number]) on 01/03/2021 4:59:35 PM Referred By: Issac Roe Confirmed By:Scott Palacios
[2021-01-03] MEDS: ATENOLOL 25 MG TABLET PO SCH (20:14)
[2021-01-03] MEDS: SENNA 8.6 MG TAB PO SCH (20:14)
[2021-01-03] MEDS: SERTRALINE HCL 50 MG TABLET PO SCH (20:14)
[2021-01-03] MEDS: LOSARTAN POTASSIUM 50 MG TAB PO SCH (20:15)
[2021-01-04] MEDS: HYDROmorphone INJ 0.5 MG/0.5 ML SYR IV PRN (03:10)
[2021-01-04] MEDS ORDERED: HALOPERIDOL LACTATE 5 MG/ML 1 ML VIAL IM STA (05:16)
[2021-01-04] MEDS ORDERED: HALOPERIDOL LACTATE 5 MG/ML 1 ML VIAL IM PRN (05:18)
--- NOTE | 2021-01-04 05:53 | Communication Note ---
Date of Service: January 04, 2021 Made aware by RN of patient agitation. AP Postop delirium Rule out UTI Check UA Haldol as needed Hold Klonopin for now Will relay to AM provider.
[2021-01-04] MEDS ORDERED: HYDROmorphone INJ 0.5 MG/0.5 ML SYR IV PRN (05:54)
[2021-01-04] MEDS: LEVOTHYROXINE SODIUM 125 MCG TABLET PO SCH ×2 (06:35→07:25)
[2021-01-04] MEDS: ACETAMINOPHEN 500 MG TAB PO SCH ×3 (06:35→22:06)
[2021-01-04] MEDS: traMADol HCL 50 MG TABLET PO PRN (07:48)
[2021-01-04 07:54] LABS: Hematocrit (blood only) 33.8 % (37-47); Hemoglobin 10.7 g/dL (12.0-16.0); Mean Corpuscular Hemoglobin 28.3 pg (25-34); Mean Corpuscular Hgb Conc 31.7 g/dL (32-36); Mean Corpuscular Volume 89.4 fL (80-100); Mean Platelet Volume 9.3 fL (7.4-10.4); Platelet Count 317 K/uL (130-400); RDW Coefficient of Variation 13.2 % (11.5-14.5); RDW Standard Deviation 42.9 fL (36.4-46.3); Red Blood Count 3.78 M/uL (4.2-5.4); White Blood Count 11.34 K/uL (4.8-10.8)
[2021-01-04] MEDS: MULTIVITAMIN TAB PO SCH (08:08)
[2021-01-04] MEDS: ASPIRIN 81 MG ECTAB PO SCH ×2 (08:08→22:04)
[2021-01-04] MEDS: CHOLECALCIFEROL 1,000 UNITS 25 MCG TAB PO SCH (08:08)
[2021-01-04 08:11] LABS: BUN Creatinine Ratio 25.1 (10-20); Calcium 9.7 mg/dl (8.5-10.1); Creatinine Clr Calc Pharmacy 65.8 ml/min; Est GFR (African American) 93.8 ml/min; Est GFR (Non-African American) 80.9 ml/min; Magnesium 1.6 mg/dl (1.8-2.4); Potassium 3.4 mmol/L (3.5-5.1)
[2021-01-04] MEDS: PANTOprazole 40 MG TAB PO SCH ×2 (08:42→22:06)
[2021-01-04] MEDS: DOCUSATE SODIUM 100 MG CAP PO SCH ×2 (08:42→22:05)
[2021-01-04] MEDS: MAGNESIUM SULFATE / D5W 1 GM/100 ML BAG IV SCH ×2 (08:45→10:46)
[2021-01-04] MEDS ORDERED: POTASSIUM CHLORIDE CRTAB 20 MEQ TABCR PO ONE (08:45)
--- NOTE | 2021-01-04 12:53 | Hospitalist Progress Note ---
Date of Service January 04, 2021 Assessment & Plan (1) Asymptomatic hypertensive urgency: Plan: Left Tibial Plateau Fracture S/O ORIF by POD #2 -Knee CT head:Nondisplaced fracture within the medial tibial plateau which extends to the lateral tibial spine. Pain control Wound care, activity as per orthopedics On aspirin 81 mg twice daily Bowel regimen to prevent constipation Monitor for postop anemia Continue Incentive Spirometry Nonweightbearing on left lower extremity with walker assistance Will likely need Rehab placement Needs follow-up with orthopedics in 2 weeks PT recommends Rehab Hb stable Hypomagnesemia Hypokalemia Replace electrolytes as needed Hypertensive Urgency BP elevated on presentation Missed home medications on presentation, pain control. 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 No recent follow-up with [facility] [place] GERD Continue PPI Prediabetes HbA1C:6.2 No tight glycemic management needed given advanced age Chronic anemia Hb at baseline Delirium H/O Depression, Panic disorder Continue Sertraline Avoid Benzos as able Reorient frequently to minimize delirium DVT Px: Aspirin 81mg BID Code Status Full code Disposition Needs Rehab placement Case management to help with discharge planning Admission and Anticipated Discharge Date Admission Date: January 03, 2021 Subjective Patient is seen and examined at bedside Patient is agitated overnight received a dose of Haldol Oriented to person, place this morning Sitter at bedside No significant leg pain at surgical site Also denies chest pain, dyspnea, dizziness, nausea, abdominal pain Review of Systems Review of Systems: All systems reviewed & are unremarkable except as noted in Subjective Physical Exam Physical Exam: Physical Exam: Vitals signs as noted above General Appearance:Elderly, no apparent distress Head: normocephalic, Atraumatic Eyes: normal inspection, EOMI Neck: supple, Trachea midline Respiratory/Chest: Normal breath sounds, CTA, No accessory muscle use Cardiovascular: S1, S2, + murmur Abdomen/GI:Soft, Non tender, Bowel sounds present Extremities/Musculoskeletal:normal inspection, no edema, Left LE in dressing Neurologic/Psych:AAOx2, grossly no focal neurological deficits Skin: normal color, warm Results & Data Results & Data ([facility]) Vital Signs (Past 12 Hours) Vital Signs Temp Pulse Pulse Resp BP BP Pulse Ox 01/04/21 08:00 68 01/04/21 07:16 36.9 C 65 16 171/74 H 92 01/04/21 02:47 36.7 C 66 18 175/83 H 92 Laboratory Results Short CBC 01/04/21 Range/Units 07:42 WBC 11.34 H (4.8-10.8) K/uL Hgb 10.7 L (12.0-16.0) g/dL Hct 33.8 L (37-47) % Plt Count 317 (130-400) K/uL BMP 01/04/21 07:42 Sodium 141 Potassium 3.4 L Chloride 110 H Carbon Dioxide 26 BUN 17 Creatinine 0.68 Glucose 111 H Calcium 9.7
[2021-01-04] MEDS: LOSARTAN POTASSIUM 50 MG TAB PO SCH (22:05)
[2021-01-04] MEDS: ATENOLOL 25 MG TABLET PO SCH (22:05)
[2021-01-04] MEDS: SENNA 8.6 MG TAB PO SCH (22:06)
[2021-01-04] MEDS: SERTRALINE HCL 50 MG TABLET PO SCH (22:06)
[2021-01-05] MEDS: ACETAMINOPHEN 500 MG TAB PO SCH ×3 (04:25→21:01)
[2021-01-05] MEDS: LEVOTHYROXINE SODIUM 125 MCG TABLET PO SCH (04:26)
[2021-01-05 07:48] LABS: Hematocrit (blood only) 34.1 % (37-47); Hemoglobin 10.7 g/dL (12.0-16.0); Mean Corpuscular Hemoglobin 28.5 pg (25-34); Mean Corpuscular Hgb Conc 31.4 g/dL (32-36); Mean Corpuscular Volume 90.9 fL (80-100); Mean Platelet Volume 9.5 fL (7.4-10.4); Platelet Count 315 K/uL (130-400); RDW Coefficient of Variation 13.3 % (11.5-14.5); RDW Standard Deviation 44.3 fL (36.4-46.3); Red Blood Count 3.75 M/uL (4.2-5.4); White Blood Count 7.18 K/uL (4.8-10.8)
[2021-01-05] MEDS: MULTIVITAMIN TAB PO SCH (08:03)
[2021-01-05] MEDS: PANTOprazole 40 MG TAB PO SCH ×2 (08:03→19:20)
[2021-01-05] MEDS: ASPIRIN 81 MG ECTAB PO SCH ×2 (08:04→19:19)
[2021-01-05] MEDS: CHOLECALCIFEROL 1,000 UNITS 25 MCG TAB PO SCH (08:04)
[2021-01-05] MEDS: DOCUSATE SODIUM 100 MG CAP PO SCH ×2 (08:07→19:21)
[2021-01-05 08:21] LABS: BUN Creatinine Ratio 29.7 (10-20); Calcium 9.4 mg/dl (8.5-10.1); Creatinine Clr Calc Pharmacy 81.2 ml/min; Est GFR (African American) 100.5 ml/min; Est GFR (Non-African American) 86.7 ml/min; Magnesium 1.9 mg/dl (1.8-2.4); Potassium 3.8 mmol/L (3.5-5.1)
[2021-01-05] MEDS ORDERED: LABETALOL HCL IV 5 MG/ML 20ML IV PRN (09:51)
[2021-01-05] MEDS ORDERED: NITROGLYCERIN SL 0.4 MG/TAB TAB SL PRN (10:00)
[2021-01-05 10:17] LABS: C Reactive Protein 2.93 mg/dl (0-0.29); Troponin I 0.021 ng/ml (0-0.045)
--- NOTE | 2021-01-05 13:43 | Cardiology Consultation ---
Date of Consultation January 05, 2021 Assessment & Plan (1) Atypical chest pain: (2) Uncontrolled hypertension: (3) Hypertensive heart disease: (4) PSVT (paroxysmal supraventricular tachycardia): (5) Fracture of tibial plateau: (6) Fall: (7) Left leg swellin-year-old female reporting atypical chest discomfort. No ECG changes or regional wall motion abnormalities per bedside echocardiogram. Her cardiac enzymes are not significantly elevated thus far. Pain somewhat reproducible on examination. Recommend trending cardiac enzymes x3 sets. Repeat ECG now and as needed recurrent discomfort. In regard to her uncontrolled hypertension, this is secondary to noncompliance. She did not receive any medications in the evening 01/04/2021. I will order 50 mg of losartan, and 25 mg of atenolol x1 now. She will receive her evening dose as scheduled. Continue to monitor blood pressure. Consider addition of amlodipine pending clinical course. Left lower extremity edema noted on examination. Venous duplex negative for DVT 01/01/2021. History of Present Illness Reason for Consultation: Chest pain, hypertension Requesting Physician: Dr. Arita Attending Physician: Severo Smith MD History of Present Illness 85-year-old female presented to the hospital 01/02/2021 with traumatic left tibial fracture. Asymptomatic hypertensive urgency reported on admission secondary to missed medications. She was taken to the operating room 01/02/2021 for an open reduction internal fixation of the left tibial plateau. Patient again missed evening medications 01/04/2021 including losartan and atenolol. Her blood pressure has been elevated today. Reported an episode of choco st discomfort last evening as well as again today when ambulating to the restroom. Describes a sharp discomfort that is a "line" upper sternum. No radiation, associated shortness of breath, or palpitations. Discomfort slowly subsides with rest. It is somewhat reproducible with palpation. Repeat ECG performed earlier today without ischemic changes. Cardiac enzymes are not significantly elevated. Currently describes the discomfort as a 1/10. Somewhat of a poor historian due to underlying dementia. She does not recall refusing medications last evening. Denies orthopnea, or paroxysmal nocturnal dyspnea. No lightheadedness or dizziness. Left lower extremity edema noted. Rare 6-7 beat salvos of paroxysmal supraventricular tachycardia recorded on telemetry overnight. Occasional premature supraventricular and ventricular complexes recorded. Allergies Allergy/AdvReac Type Severity Reaction Status Date / Time Ugljree-[id number]-Thn Reductase AdvReac Intermediate MUSCLE Verified 01/02/21 08:42 Inhibitor ACHES-ELEVATED CK WITH LIPITOR PER HISTORY Home Medications Medication Instructions Recorded Confirmed Type aspirin 81 mg tablet,delayed 81 mg PO QPM 10/07/18 09/18/20 History release (Aspir-) fenofibric acid (choline) 135 mg 135 mg PO QPM 10/07/18 09/18/20 History capsule,delayed release meclizine 12.5 mg tablet 12.5 mg PO TID PRN 10/07/18 09/18/20 History pantoprazole 40 mg tablet,delayed 40 mg PO BID 10/07/18 09/18/20 History release sertraline 50 mg tablet 50 mg PO QPM 10/07/18 09/18/20 History cholecalciferol (vitamin D3) 50 50 mcg PO DAILY 09/18/20 09/18/20 History mcg (2,000 unit) capsule levothyroxine 125 mcg tablet 125 mcg PO DAILY 09/18/20 09/18/20 History clonazepam 1 mg tablet (Klonopin) 0.5 mg PO BID PRN #0 tab 09/21/20 09/18/20 Rx losartan 25 mg tablet 50 mg PO PM #0 tab 09/21/20 09/18/20 Rx Patient History Medical History Cerebral aneurysm "[facility] 07/22/13 3 mm fusiform aneurysm takeoff right [employer]" CKD (chronic kidney disease), stage III Depression Esophagitis (12/26/10) History of papillary adenocarcinoma of thyroid HLD (hyperlipidemia) HTN (hypertension) Hypertensive heart disease Hypothyroidism MERY (obstructive sleep apnea) Panic disorder (12/26/10) Thyroid cancer Surgical History Status post appendectomy Status post thyroidectomy Family History Other Diabetes Hypertension Social History Smoking Status: Never smoker Second Hand Exposure: No; Do You Dip or Chew Tobacco: No; Hx Alcohol Use: No Hx Substance Use: No Preferred Language: Malaysian Communication Ability: Effective Ward Aide Required: No Beliefs That Will Affect Care: None marital status: / Current Living Situation: Family Current Living Situation Comment: Lives with GrandSon Feels Safe at Home: Yes Safety Concerns: Feels Safe At This Time Assistive Devices: Walker Review of Systems Review of Systems: All systems reviewed & are unremarkable except as noted in Subjective Physical Exam Constitutional: well developed and well nourished; no acute distress Respiratory: normal respiratory effort; no respiratory distress, no labored breathing and no retractions Auscultation: lungs clear to auscultation bilaterally; no crackles, no rales, no rhonchi and no wheezes Cardiovascular: Rate/Rhythm: regular rate and regular rhythm Heart Sounds: normal S1 and normal S2; no murmur Extremities: + edema (1+ left lower extremity edema.) Gastrointestinal (Abdomen): Inspection/Auscultation: abdomen normal to inspection and normal bowel sounds; abdomen not distended Percussion/Palpation: abdomen soft; abdomen nontender, no guarding and abdomen not rigid Neurologic: CN's II-XI intact bilaterally and moves all extremities; no focal motor deficits Motor/Sensory: no tremor Psychiatric: Insight: + limited insight Results & Data ([facility]) Vital Signs (Past 12 Hours) Vital Signs Temp Pulse Pulse Pulse Resp BP BP 01/05/21 09:41 80 187/93 H 01/05/21 07:30 69 01/05/21 03:30 36.8 C 73 16 175/78 H Pulse Ox 01/05/21 09:41 93 01/05/21 07:30 01/05/21 03:30 92 (1) Fracture of tibial plateau Encounter type: initial encounter Fracture type: closed Laterality: left Qualified Code(s): S82.142A - Displaced bicondylar fracture of left tibia, initial encounter for closed fracture (2) Fall Encounter type: initial encounter Qualified Code(s): W19.XXXA - Unspecified fall, initial encounter
[2021-01-05] MEDS ORDERED: ATENOLOL 25 MG TABLET PO ONE (13:45)
[2021-01-05] MEDS ORDERED: LOSARTAN POTASSIUM 50 MG TAB PO ONE (13:45)
--- NOTE | 2021-01-05 14:42 | Hospitalist Progress Note ---
Date of Service January 05, 2021 Assessment & Plan (1) Asymptomatic hypertensive urgency: Plan: Left Tibial Plateau Fracture S/O ORIF by POD #3 -Knee CT head:Nondisplaced fracture within the medial tibial plateau which extends to the lateral tibial spine. Pain control Wound care, activity as per orthopedics On aspirin 81 mg twice daily Bowel regimen to prevent constipation Monitor for postop anemia Continue Incentive Spirometry Nonweightbearing on left lower extremity with walker assistance Will likely need Rehab placement Needs follow-up with orthopedics in 2 weeks PT recommends Rehab Hb stable Atypical Chest Pain Reproducible on exam Echo:EF:65-70%. Mild concentric LVH. Left atrium is moderately dilated. Diastolic dysfunction, grade 2, trace TR. 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 No recent follow-up with [facility] Neurosurgery GERD Continue PPI Prediabetes HbA1C:6.2 No tight glycemic management needed given advanced age Chronic anemia Hb at baseline Delirium H/O Depression, Panic disorder Continue Sertraline Avoid Benzos as able Reorient frequently to minimize delirium DVT Px: Aspirin 81mg BID Code Status Full code Disposition Needs Rehab placement Case management to help with discharge planning Admission and Anticipated Discharge Date Admission Date: January 03, 2021 Subjective Patient is seen and examined at bedside States having transient chest pain earlier today after having PT Reports minimal dyspnea associated with chest pain leg pain is controlled Denies dizziness, nausea, abdominal pain Review of Systems Review of Systems: All systems reviewed & are unremarkable except as noted in Subjective Physical Exam Physical Exam: Physical Exam: Vitals signs as noted above General Appearance:Elderly, no apparent distress Head: normocephalic, Atraumatic Eyes: normal inspection, EOMI Neck: supple, Trachea midline Respiratory/Chest: Normal breath sounds, CTA, No accessory muscle use Cardiovascular: S1, S2, + murmur Abdomen/GI:Soft, Non tender, Bowel sounds present Extremities/Musculoskeletal:normal inspection, no edema, Left LE in dressing Neurologic/Psych:AAOx2, grossly no focal neurological deficits Skin: normal color, warm Results & Data Results & Data ([facility]) Vital Signs (Past 12 Hours) Vital Signs Temp Pulse Pulse Pulse Resp BP BP 01/05/21 09:41 80 187/93 H 01/05/21 07:30 69 01/05/21 03:30 36.8 C 73 16 175/78 H Pulse Ox 01/05/21 09:41 93 01/05/21 07:30 01/05/21 03:30 92 Laboratory Results Short CBC 01/05/21 Range/Units 07:16 WBC 7.18 (4.8-10.8) K/uL Hgb 10.7 L (12.0-16.0) g/dL Hct 34.1 L (37-47) % Plt Count 315 (130-400) K/uL BMP 01/05/21 07:16 Sodium 142 Potassium 3.8 Chloride 110 H Carbon Dioxide 24 BUN 16 Creatinine 0.55 L Glucose 89 Calcium 9.4 Cardiac Enzymes 01/05/21 01/05/21 Range/Units 07:16 13:52 Troponin I 0.021 0.016 (0-0.045) ng/ml
[2021-01-05] MEDS: ATENOLOL 25 MG TABLET PO SCH (19:19)
[2021-01-05] MEDS: LOSARTAN POTASSIUM 50 MG TAB PO SCH (19:19)
[2021-01-05] MEDS: SENNA 8.6 MG TAB PO SCH (19:19)
[2021-01-05] MEDS: SERTRALINE HCL 50 MG TABLET PO SCH (19:20)
--- NOTE | 2021-01-05 22:44 | Electrocardiogram Report ---
Test Reason : Blood Pressure : / mmHG Vent. Rate : 072 BPM Atrial Rate : 072 BPM P-R Int : 170 ms QRS Dur : 082 ms QT Int : 394 ms P-R-T Axes : 068 018 029 degrees QTc Int : 431 ms Sinus rhythm with Premature atrial complexes Otherwise normal ECG When compared with ECG of 01-JAN-2021 23:32, Premature atrial complexes are now Present Confirmed by Silas Muller ([id number]) on 01/05/2021 10:43:45 PM Referred By: Issac Roe Confirmed By:Silas Muller
[2021-01-06] MEDS: oxyCODONE HCL IR 5 MG TAB (IMMEDIATE RELEASE) PO PRN (01:57)
[2021-01-06] MEDS: traMADol HCL 50 MG TABLET PO PRN (03:21)
[2021-01-06] MEDS: ACETAMINOPHEN 500 MG TAB PO SCH ×2 (04:53→13:32)
[2021-01-06] MEDS: LEVOTHYROXINE SODIUM 125 MCG TABLET PO SCH (04:54)
--- NOTE | 2021-01-06 06:13 | Electrocardiogram Report ---
Test Reason : Blood Pressure : / mmHG Vent. Rate : 077 BPM Atrial Rate : 077 BPM P-R Int : 162 ms QRS Dur : 080 ms QT Int : 392 ms P-R-T Axes : 043 004 036 degrees QTc Int : 443 ms Normal sinus rhythm Normal ECG When compared with ECG of 04-JAN-2021 15:04, Premature atrial complexes are no longer Present Confirmed by Silas Muller ([id number]) on 01/06/2021 6:13:11 AM Referred By: Issac Roe Confirmed By:Silas Muller
--- NOTE | 2021-01-06 06:20 | Electrocardiogram Report ---
Test Reason : Blood Pressure : / mmHG Vent. Rate : 079 BPM Atrial Rate : 079 BPM P-R Int : 152 ms QRS Dur : 076 ms QT Int : 378 ms P-R-T Axes : 043 017 056 degrees QTc Int : 433 ms Poor data quality, interpretation may be adversely affected Normal sinus rhythm Nonspecific ST abnormality Abnormal ECG When compared with ECG of 05-JAN-2021 09:52, No significant change was found Confirmed by Silas Muller ([id number]) on 01/06/2021 6:20:12 AM Referred By: Issac Roe Confirmed By:Silas Muller
[2021-01-06] MEDS: MECLIZINE 12.5 MG TAB PO PRN (07:37)
[2021-01-06] MEDS: ASPIRIN 81 MG ECTAB PO SCH (07:38)
[2021-01-06] MEDS: PANTOprazole 40 MG TAB PO SCH (07:39)
[2021-01-06] MEDS: MULTIVITAMIN TAB PO SCH (07:40)
[2021-01-06] MEDS: CHOLECALCIFEROL 1,000 UNITS 25 MCG TAB PO SCH (07:40)
[2021-01-06 08:09] LABS: Calcium 9.8 mg/dl (8.5-10.1); Creatinine Clr Calc Pharmacy 72.9 ml/min; Est GFR (African American) 97.7 ml/min; Est GFR (Non-African American) 84.3 ml/min; Magnesium 1.5 mg/dl (1.8-2.4); Potassium 3.5 mmol/L (3.5-5.1)
[2021-01-06] MEDS ORDERED: POTASSIUM CHLORIDE CRTAB 20 MEQ TABCR PO ONE (08:50)
[2021-01-06] MEDS ORDERED: MAGNESIUM SULFATE / D5W 1 GM/100 ML BAG IV ONE (09:00)
[2021-01-06] MEDS ORDERED: LOSARTAN POTASSIUM 50 MG TAB PO SCH (09:00)
[2021-01-06] MEDS ORDERED: amLODIPine BESYLATE 5 MG TAB PO SCH (09:00)
--- NOTE | 2021-01-06 09:48 | Cardiology Progress Note ---
Date of Service January 06, 2021 Assessment & Plan (1) Atypical chest pain: (2) Uncontrolled hypertension: (3) Hypertensive heart disease: (4) PSVT (paroxysmal supraventricular tachycardia): (5) Fracture of tibial plateau: (6) Fall: (7) Left leg swelling: Plan: 85-year-old female reporting atypical chest discomfort.Admitted after mechanical fall. No syncope or near syncope No ECG changes or regional wall motion abnormalities per bedside echocardiogram. Her cardiac enzymes are not significantly elevated thus far. Pain somewhat reproducible on examination. No further chest pain no signs of ischemia by enzyme or EKG Recommendations: Continue current medications including resumption of atenolol 25 mg/day and current dose of losartan, 50 mg po qday Would not increase antihypertensives further given lability in past. Admission and Anticipated Discharge Date Admission Date: January 03, 2021 Subjective Patient was seen and examined, chart, medications, telemetry reviewed. No cardiac complaints. No further chest pain or discomfort. Eating and drinking well taking usual medications. Blood pressures trending slowly downward. With longstanding history of labile blood pressures at times of emotional stress. Pain in left leg is now improved. Patient anxious to perform physical therapy at home. Review of Systems Review of Systems: All systems reviewed & are unremarkable except as noted in Subjective Physical Exam Constitutional: WD/WN, vitals as above no acute distress Eyes: PERRL, conjunctivae normal, anicteric sclerae ENMT: external ear and nose normal, oropharynx normal Neck: trachea midline, no thyromegaly Respiratory: normal respiratory effort, lungs clear to auscultation Cardiovascular: Rate/Rhythm: regular rate and regular rhythm Heart Sounds: normal S1 and normal S2; no gallop and no murmur Palpation: normal PMI Vessels: normal carotid upstroke and radial pulses present; no JVD and no carot id bruit Extremities: + edema (1+ left leg) Gastrointestinal (Abdomen): normal bowel sounds, soft, nontender, no hepatosplenomegaly Musculoskeletal: no cyanosis or clubbing, extremities motor strength 5/5 Skin: no rashes, warm and dry Neurologic: PERRL, EOMI, accommodation nl, no face palsy, no dysarthria Psychiatric: A+Ox3, euthymic affect Results & Data ([facility]) Vital Signs (Past 12 Hours) Vital Signs Temp Pulse Pulse Resp BP BP Pulse Ox 01/06/21 09:17 76 167/81 H 01/06/21 07:16 36.8 C 73 16 180/84 H 93 01/06/21 07:00 78 01/06/21 03:29 36.9 C 63 18 174/75 H 96 01/06/21 00:10 63 165/77 H 01/05/21 22:50 36.9 C 64 18 189/88 H 96 Laboratory Results Laboratory Results - last 24 hr 01/05/21 01/05/21 01/05/21 07:16 07:16 13:52 ESR 25 Sodium Potassium Chloride Carbon Dioxide Anion Gap BUN Creatinine Est Cr Clr Drug Dosing Est GFR ( Amer) Est GFR (Non-Af Amer) BUN/Creatinine Ratio Glucose Calcium Magnesium Troponin I 0.021 0.016 C-Reactive Protein 2.93 H 01/05/21 01/06/21 17:31 07:08 ESR Sodium 140 Potassium 3.5 Chloride 107 Carbon Dioxide 27 Anion Gap 6.0 BUN 15 Creatinine 0.60 Est Cr Clr Drug Dosing 72.9 Est GFR ( Amer) 97.7 Est GFR (Non-Af Amer) 84.3 BUN/Creatinine Ratio 25.0 H Glucose 109 H Calcium 9.8 Magnesium 1.5 L Troponin I 0.016 C-Reactive Protein (1) Fracture of tibial plateau Encounter type: initial encounter Fracture type: closed Laterality: left Qualified Code(s): S82.142A - Displaced bicondylar fracture of left tibia, initial encounter for closed fracture (2) Fall Encounter type: initial encounter Qualified Code(s): W19.XXXA - Unspecified fall, initial encounter
[2021-01-06] MEDS: DOCUSATE SODIUM 100 MG CAP PO SCH (09:51)
[2021-01-06 10:39] LABS: Appearance Urine Cloudy (Clear); Bacteria Urine Automated Negative (Negative); Blood Urine Trace (Negative); Color Urine Dark Yellow; Epithelial Cell Urine Auto >30 /lpf (0-5); Glucose Urine UA Negative (Negative); Ketones Urine Trace (Negative); Leukocyte Esterase Urine 1+ (Negative); Nitrite Urine Negative (Negative); Protein Urine 1+ (Negative); Specific Gravity Urine 1.028 (1.000-1.030); Urobilinogen Urine Negative (Negative); pH Urine 6.5 (4.5-7.5)
[2021-01-06 10:41] LABS: Bilirubin Urine 1+ (Negative)
--- NOTE | 2021-01-06 10:50 | XRay Report ---
XR chest 1V portable CLINICAL HISTORY: chest pain COMPARISON STUDY: September 18, 2020 FINDINGS: No pneumothorax. No pleural effusion. No large infiltrates or consolidative lesions are seen. Cardiomediastinal silhouette remains prominent. Redemonstration of the dense retrocardiac opacity is again seen which might represent hiatal hernia. No significant pulmonary vascular congestion.. Aorta is calcified. Osseous structures: Osteopenia. Mild degenerative changes of the spine. Severe degenerative changes of the right shoulder. IMPRESSION: 1. No large infiltrates or consolidative lesions. 2. Possible hiatal hernia. 3. Stable prominent cardiomediastinal silhouette is unchanged since prior. 4. The rest of findings as above. ACT 112: Negative or not required by law. The above report was generated using voice recognition software. It may contain grammatical, syntax o r spelling errors. Electronically signed by: Remedios Aguirre DO 01/06/2021 10:48 AM
--- NOTE | 2021-01-06 13:10 | Hospitalist Progress Note ---
Date of Service January 06, 2021 Assessment & Plan (1) Asymptomatic hypertensive urgency: Plan: Left Tibial Plateau Fracture S/O ORIF by POD #4 -Knee CT head:Nondisplaced fracture within the medial tibial plateau which extends to the lateral tibial spine. Pain control Wound care, activity as per orthopedics On aspirin 81 mg twice daily Bowel regimen to prevent constipation Monitor for postop anemia Continue Incentive Spirometry Nonweightbearing on left lower extremity with walker assistance Will likely need Rehab placement Needs follow-up with orthopedics in 2 weeks PT recommends Rehab Hb stable Patient prefers to be discharge home with home health Case management to help with discharge planning Atypical Chest Pain Reproducible on exam Echo:EF:65-70%. Mild concentric LVH. Left atrium is moderately dilated. Diastolic dysfunction, grade 2, trace TR. CXR:No large infiltrates or consolidative lesions. Possible hiatal hernia. Stable prominent cardiomediastinal silhouette is unchanged since prior. 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 No recent follow-up with [facility] Neurosurgery GERD Continue PPI Prediabetes HbA1C:6.2 No tight glycemic management needed given advanced age Chronic anemia Hb at baseline Delirium H/O Depression, Panic disorder Continue Sertraline Avoid Benzos as able Reorient frequently to minimize delirium DVT Px: Aspirin 81mg BID Code Status Full code Disposition Needs Rehab placement Case management to help with discharge planning Admission and Anticipated Discharge Date Admission Date: January 03, 2021 Subjective Patient is seen and examined at bedside Doing well today Denies any recurrence of chest pain leg pain is controlled Denies dizziness, nausea, abdominal pain, dyspnea Review of Systems Review of Systems: All systems reviewed & are unremarkable except as noted in Subjective Physical Exam Physical Exam: Physical Exam: Vitals signs as noted above General Appearance:Elderly, no apparent distress Head: normocephalic, Atraumatic Eyes: normal inspection, EOMI Neck: supple, Trachea midline Respiratory/Chest: Normal breath sounds, CTA, No accessory muscle use Cardiovascular: S1, S2, + murmur Abdomen/GI:Soft, Non tender, Bowel sounds present Extremities/Musculoskeletal:normal inspection, no edema, Left LE in dressing Neurologic/Psych:AAOx2, grossly no focal neurological deficits Skin: normal color, warm Results & Data Results & Data ([facility]) Vital Signs (Past 12 Hours) Vital Signs Temp Pulse Pulse Resp BP BP Pulse Ox 01/06/21 11:30 36.8 C 71 16 182/94 H 94 01/06/21 09:17 76 167/81 H 01/06/21 07:16 36.8 C 73 16 180/84 H 93 01/06/21 07:00 78 01/06/21 03:29 36.9 C 63 18 174/75 H 96 Laboratory Results BMP 01/06/21 07:08 Sodium 140 Potassium 3.5 Chloride 107 Carbon Dioxide 27 BUN 15 Creatinine 0.60 Glucose 109 H Calcium 9.8 Cardiac Enzymes 01/05/21 01/05/21 Range/Units 13:52 17:31 Troponin I 0.016 0.016 (0-0.045) ng/ml Urine 01/06/21 Range/Units 10:22 Urine Color Dark Yellow Urine Appearance Cloudy A (Clear) Urine pH 6.5 (4.5-7.5) Ur Specific [place] 1.028 (1.000-1.030) Urine Protein 1+ H (Negative) Urine Glucose (UA) Negative (Negative)
--- NOTE | 2021-01-06 13:49 | Discharge Summary ---
Date of Service January 06, 2021 Admission HPI Per Admitting Provider History obtained from patient, family, and records. Medical history significant for hypertension, hyperlipidemia, PVD, history cerebral aneurysm as per records, MERY not on CPAP as per records, GERD, thyroid cancer status post surgery, postsurgical hypothyroidism, chronic anemia (baseline hemoglobin of 11), anxiety/mood disorder. Last confinement September 2020 for dizziness/syncope. Episodic agitation during confinement. Last week, patient had a fall at her front porch. No chest pain, no S OB. No syncope, no LOC. Bilateral lower leg pain more on the left. Patient subsequently noted worsening swelling on the left leg. Patient brought to the ER last night for evaluation. 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 Baseline Functionality : Still able to do housework at home without rest/exertional chest pain, S OB prior to injury Admission Exam Per Admitting Provider Physical Exam Physical Exam: General: no acute distress, WDWN Head: normocephalic, atraumatic Eyes: PERRL, EOM's intact, conjunctiva non-injected, anicteric ENT: normal inspection external ears, nose, mucous membranes moist Neck: supple, trachea midline, non-tender Lungs: clear, no respiratory distress, no wheezing/rhonchi/rales CV: RRR, no murmur, no JVD, no pretibial edema Abd: normal BS, soft, non-tender Ext: no cyanosis, no calf tenderness Neuro: A&O x 3, normal affect, +slight left facial droop noted, No nystagmus, Hearing grossly intact, no dysarthria, Shoulder shrug intact, Tongue is midline Skin: warm, dry Principal Diagnosis Left Tibial Plateau Fracture Atypical Chest Pain Hypertension Discharge Data Allergies Allergy/AdvReac Type Severity Reaction Status Date / Time Gnwewft-Rup-Fuh Reductase AdvReac Intermediate MUSCLE Verified 01/02/21 08:42 Inhibitor ACHES-ELEVATED CK WITH LIPITOR PER HISTORY Consultations 01/02/21 04:28 Consult Orthopedic Surgery Stat 01/02/21 04:36 ED Decision to Admit Stat 01/05/21 09:49 Consult Cardiology Routine Procedures Performed Operation Date: 01/02/21 09:40 Actual Procedures p Open Reduction Internal Fixation Left Tibial Plateau Fracture(Left) - Severo Smith MD Ordered Studies 01/01/21 23:17 CT head/brain wo con Urgent US venous doppler LE LT Urgent 01/02/21 00:38 CT knee LT wo con Urgent 01/02/21 09:30 FL tibia/fibula LT 2V Routine Hospital Course (1) Asymptomatic hypertensive urgency: Left Tibial Plateau Fracture S/O ORIF by POD #4 -Knee CT head:Nondisplaced fracture within the medial tibial plateau which extends to the lateral tibial spine. Pain control Wound care, activity as per orthopedics On aspirin 81 mg twice daily Bowel regimen to prevent constipation Monitor for postop anemia Continue Incentive Spirometry Nonweightbearing on left lower extremity with walker assistance Will likely need Rehab placement Needs follow-up with orthopedics in 2 weeks PT recommends Rehab Hb stable Patient prefers to be discharge home with home health Case management to help with discharge planning Atypical Chest Pain Reproducible on exam Echo:EF:65-70%. Mild concentric LVH. Left atrium is moderately dilated. Diastolic dysfunction, grade 2, trace TR. CXR:No large infiltrates or consolidative lesions. Possible hiatal hernia. Stable prominent cardiomediastinal silhouette is unchanged since prior. 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 No recent follow-up with [facility] Neurosurgery GERD Continue PPI Prediabetes HbA1C:6.2 No tight glycemic management needed given advanced age Chronic anemia Hb at baseline Delirium H/O Depression, Panic disorder Continue Sertraline Avoid Benzos as able Reorient frequently to minimize delirium DVT Px: Aspirin 81mg BID Code Status Full code Disposition Needs Rehab placement Case management to help with discharge planning Total Time Total Time Spent Total Time Spent (In Minutes): 41 minutes Discharge Plan Discharge Items Patient Disposition: Home - Home Health Services Reason For Visit: HTN URG, TIBIA FX Discharge Diagnosis: Left Tibial Plateau Fracture Atypical Chest Pain Hypertension Condition on Discharge: Good Activity: As commented below Bathing: Keep incision dry Bathing Comment: May shower tomorrow Sexual Activity: Wait until after follow-up appointment Exercise/Sports: Wait until after follow-up appointment Driving/Machine Use: No driving until cleared by regional facilities specialist Weightbearing: Left non-weightbearing Weightbearing Comment: with walker assistance Non-emergency contact: Primary Care Provider Call non-emergency contact if: you have any medication questions, your symptoms worsen, your pain is concerning for you, you have a fever, your temperature is above 101.5, your wound has increased redness, your wound has increased drainage and your wound pain has increased Follow-up/Referrals: Issac Roe DO [Primary Care Provider] - (Date & Time 01/10/2021 11:00 AM Provider Jasbir Cason DO Department [facility] ) Diet: Heart Healthy Addtl Attending Provider Instructions: Post-operative Instructions Dear Patient and Family/Friends, Before you are discharged from the hospital, it is important to know what to expect when you get home after surgery. To that end, we have created this sheet of discharge instructions which covers many commonly asked questions. Make sure you go through this sheet in its entirety with your nurse before you are discharged. Please note that we will go over the specifics of your surgery and recovery when you return for your first post-operative visit. Sincerely, Dr. Smith Pain Expect to be in a fair amount of pain after surgery. Remember, our goal is not to eliminate your pain, but to make it tolerable. It is a good idea to stay ahead of your pain by taking the medications you were prescribed once you get home. Typically, the pain starts improving 3-7 days after surgery. You should start weaning off the narcotic pain medication (oxycodone, hydrocodone, hydromorphone, morphine) as soon as your pain improves. Please call our office if your pain is not adequately controlled. Ice Ice your operative site at least 5 times a day for 15-30 minutes at a time. Make sure you have a thin cloth between the ice or cooling unit and your skin to prevent tang bite. This is especially important if you received a nerve block. Continue icing your operative site for the first 5-7 days after surgery, then as needed. Diet/Nausea/Vomiting Start by drinking clear liquids and eating crackers. If you can tolerate this, then you may resume your normal diet. If you feel nauseated or vomit, take Zofran/ondansetron (if prescribed). Please call our office if you have intractable nausea or vomiting, or, if after hours, you may go to the Emergency Room for help. Constipation Constipation is a common side effect of narcotic pain medication. If you have not had a bowel movement within 2 days after surgery, we recommend purchasing an over the counter laxative such as Milk of Magnesia, Dulcolax, or Miralax from a local pharmacy, and taking it as instructed. Call our clinic if any questions. Weight bearing and Range of Motion. Do not bear any weight through your operative extremity immediately after surgery. If you had upper extremity surgery, do not lift anything with that arm. If you are in a knee brace, keep it locked in place until your follow-up. We will discuss your weight bearing, range of motion, and lifting restrictions in detail at your first post-operative appointment. Continuous Passive Motion (CPM) Machine If you were prescribed a CPM machine, it will start after your first post- operative appointment, at which time we will give you instructions on the range of motion settings and duration of treatment Physical therapy You will be given a prescription for physical therapy or occupational therapy at your first post-operative appointment. Typically, patients start therapy within 1 week of surgery Wound care and showering We will inspect your wound at your first post-operative visit, and may do a dressing change at that time. Most patients will be in a water-proof dressing that is removed 14 days after surgery. It is normal to see some dried blood on the dressing. Do not remove your dressing, paper strips or sutures yourself unless you are given permission. Showering is allowed the day after surgery. Do not scrub or remove any dressings. The wound should not be submerged underwater (i.e. in a bathtub or pool) until 4 weeks after surgery DOMENICA stockings If you were given white stockings, these are to be worn at all times except to shower (on both legs) for the first 2 weeks after surgery. Driving You may not drive while taking narcotic pain medication or while in a cast, splint, sling or brace. You, the patient, need to make the final determination about when you are safe to drive, however, the earliest you may consider driving after surgery is below: Hand/Wrist/Elbow Surgery: 3 days Shoulder Surgery: 2 weeks Hip,/Knee/Ankle Surgery: 4 weeks Fracture repair: 6 weeks Return to Work Your return to work depends on what surgery was done and what type of work you do. Please bring any paperwork your employer needs completed to your first post-operative visit. Also, bring a description of your job duties, as this helps us to understand what risks you may face at work. Travel Avoid long distance travel (greater than 1 hour) in airplanes and cars for the first 6 weeks after surgery. If you must travel, you need to have a Doppler ultrasound done before you travel to rule out a blood clot in your legs. Follow-up You should have a follow-up appointment already scheduled 1-2 days after surgery. If not, please contact our office to make this appointment before you leave the hospital. When to call the office It is normal to have swelling and bruising in the limb that was operated on. This will improve with time. It is also normal to have fevers for the first 2 days after surgery. Reasons you should call your doctor include: Uncontrolled pain; Nausea, vomiting, or constipation that does not improve with medication; Fevers over 101.5, chills, sweats; Drainage or bleeding from the wound; Foul odor; Spreading areas of redness; Any other concerns Addtl [employer] Provider Instructions: Follow up with your Primary Care Physician on 01/10/2021 11:00 AM Follow up with your Orthopedic Surgeon /SANDRO Cuenca PA-C in 2 weeks Monitor your blood pressure at home regularly as advised. Follow-up with your primary care physician for further adjustment of your high blood pressure medications. Take Aspirin 81mg Twice a day until further instructions from your Orthopedic surgeon for deep vein thrombosis prophylaxis. After 4 weeks, can resume to 81mg once daily. Do not take group of medications belonging to NSAIDs group -can cause worsen your risk for bleeding. List Of these medications includes but not limited to: Diclofenac Ibuprofen, Motrin, Advil Toradol,ketorolac Naproxen, Aleve, Naprosyn You can take Tylenol as needed for pain or fever When buying [id number] pain medications please consult with pharmacy if you are not sure regarding ingredients, as a lot of the pain medications have combination of NSAIDs and Tylenol. Seek immediate medical attention if your symptoms reoccur or worsen Please take all medications as instructed on discharge list below. Please call if you have any questions or problems. You can reach a [facility] hospitalist on duty at [facility] 24 hours a day by calling [phone] Pending Studies at Discharge: No Stand-Alone Forms: My [facility], Smoking Cessation Medications and DC Order Prescriptions: New aspirin 81 mg Tablet,Delayed Release (Dr/Ec) 81 mg PO BID Qty: 60 RF: 0 tramadol 50 mg Tablet 50 mg PO Q8H PRN (Reason: pain) Qty: 10 RF: 0 Continued pantoprazole 40 mg Tablet,Delayed Release (Dr/Ec) 40 mg PO BID RF: 0 meclizine 12.5 mg Tablet 12.5 mg PO TID PRN (Reason: Dizziness) RF: 0 sertraline 50 mg Tablet 50 mg PO QPM RF: 0 fenofibric acid (choline) 135 mg Capsule,Delayed Release(Dr/Ec) 135 mg PO QPM RF: 0 levothyroxine 125 mcg tablet 125 mcg PO DAILY RF: 0 cholecalciferol (vitamin D3) 50 mcg (2,000 unit) Capsule 50 mcg PO DAILY RF: 0 clonazepam [Klonopin] 1 mg Tablet 0.5 mg PO BID PRN (Reason: Anxiety) Qty: 0 RF: 0 losartan 25 mg tablet 50 mg PO PM Qty: 0 RF: 0 atenolol 25 mg tablet 25 mg PO DAILY RF: 0 Discontinued aspirin [Aspir-81] 81 mg Tablet,Delayed Release (Dr/Ec) 81 mg PO QPM RF: 0 Discharge Orders: Discharge Order (Routine); Ordered 01/06/21 Ordered By: Jean Arita Admission Data Admit Date/Time: 01/03/21 07:39 Attending Provider: Severo Smith Admit Provider: Severo Smith Primary Care Provider: Issac Roe Other Providers: Severo Smith ; Jean Arita ; Honorio Alex ; [facility] Other Interventions: Discharge Summary Assessment (RN) Last Done: 01/06/21 13:56
== END 2021-01-06 16:18 | disposition home health service (06) | DRG 493 ==
LOC: PACUINP 19:09 → ED 19:09 → 2W 01-02 13:40
DX: Z85.850 Personal history of malignant neoplasm of thyroid; E03.9 Hypothyroidism, unspecified; I12.9 Hypertensive chronic kidney disease with stage 1 through stage 4 chronic kidney disease, or unspecified chronic kidney disease; E83.42 Hypomagnesemia; K21.9 Gastro-esophageal reflux disease without esophagitis; N18.30 Chronic kidney disease, stage 3 unspecified; Z79.82 Long term (current) use of aspirin; E87.6 Hypokalemia; I16.0 Hypertensive urgency; I47.1 Supraventricular tachycardia; G47.33 Obstructive sleep apnea (adult) (pediatric); S82.145A Nondisplaced bicondylar fracture of left tibia, initial encounter for closed fracture; S09.90XA Unspecified injury of head, initial encounter; E78.5 Hyperlipidemia, unspecified; D64.9 Anemia, unspecified; W19.XXXA Unspecified fall, initial encounter

== ENCOUNTER 2021-02-04 12:34 | Inpatient (IN) ==
[2021-02-04] MEDS ORDERED: SODIUM CHLORIDE 0.9% 500 ML IV ONE (12:48)
[2021-02-04] MEDS ORDERED: ACETAMINOPHEN 1,000 MG/100 ML VIAL IV STA (12:48)
[2021-02-04] MEDS ORDERED: fentaNYL citrate 100 MCG/2 ML VIAL IV STA (12:48)
--- NOTE | 2021-02-04 12:53 | Emergency Department Note ---
Impression & Plan Fall from standing, Sepsis, Post-operative infection, Acute on chronic renal insufficiency, Leukocytosis ED Provider Note NAME: BRIGIDO LITTLE AGE: 85 SEX: F ARRIVES VIA: Ambulance INFORMANT: Patient, ED PROVIDER(S): Russell Newberry MD CHIEF COMPLAINT: Fall PLAN: Disposition: Admit MEDICAL DECISION MAKING: The patient is a pleasant 85-year-old woman with a past medical history of dementia, hypertension, hyperlipidemia, cerebral aneurysm, MERY not on CPAP, GERD, chronic anemia, anxiety/mood disorder who presents emergency department from home after having an unwitnessed fall where she was found down by the [employer] delivery who contacted a neighbor who came in assist until EMS arrived. Per EMS report the patient's walker was found in inside just inside her front door. Patient is a poor historian and cannot describe detailed events. She reports pain below her left knee where she recently s/p ORIF for tibial plateau fracture. Per EMS report the patient did have an ultrasound recently for pain and swelling in the area. On arrival patient is uncomfortable no acute distress, afebrile stable vital signs. She has erythema warmth tenderness and area of fluctuance just below the left knee adjacent to her incision site. There is 1+ edema distally. Distal PMS is intact. Pelvis is stable with hips with full range of motion. There is no CT or L-spine tenderness to palpation or step-offs. Head is atraumatic. EKG without overt acute ischemia. CXR with nonspecific interstitial thickening. XR pelvis with "Questionable cortical irregularity of the proximal right and left femur which might represent degenerative process or nondisplaced fracture." However hips with FROM bilaterally and so unlikely to represent acute findings. Left knee/tib fib shows. " Moderate soft tissue swelling with areas of soft tissue gas and large knee joint effusion. CT head negative. WBC 20.25K. H/H similar to prior. Platelets 540s, nonspecific.. ESR and CRP are eleated at 87 and 41, respectively. Chemistry without acidosis. Cr. 1.7 increased from baseline. BUN/Cdr > 20 c/w patient's clincally dry appearance. Electrolytes unremarkable. LFTs without significant abnormality. Troponin negative/undetectable. Procalcitonin 3.2. Case d/w Dr. Latif, [facility] orthopedic surgery on-call who evaluated the patient at the bedside who will take the patient to the OR for I&D. ABX per [facility] admitting team. Case was discussed with Addi Garcia PAC, with Dr. Marnie Fontana [facility] who will evaluate the patient for admission. Triage Nursing notes reviewed and agree them. Prior medical records reviewed Vital Signs: reviewed and remarkable for no significant abnormalities Differential diagnosis: Fracture, dislocation, contusion, intra-abdominal, pneumothorax, intrathoracic, intracranial, neurologic, compartment syndrome, rhabdomyolysis, as well as other pathologies. ER treatment provided: See below. Diagnostics interpreted by me: ECG: Sinus tachycardia, 105 bpm, no ectopy, Non-specific ST abnormality, no overt ST elevation or depression. Cardiac Monitoring: An order for continuous cardiac monitoring was placed and demonstrated Sinus tachycardia, 105 bpm, no ectopy. Laboratory studies: See below Imaging studies: See below Consultation(s): Dr. Latif, [facility] orthopedic surgery on-call Case was discussed with Addi Garcia PAC, with Dr. Marnie ventura who will evaluate the patient for admission. HPI: The patient is a pleasant 85-year-old woman with a past medical history of dementia, hypertension, hyperlipidemia, cerebral aneurysm, MERY not on CPAP, GERD, chronic anemia, anxiety/mood disorder who presents emergency department from home after having an unwitnessed fall where she was found down by the [employer] delivery who contacted a neighbor who came in assist until EMS arrived. Per EMS report the patient's walker was found in inside just inside her front door. Patient is a poor historian and cannot describe detailed events. She reports pain below her left knee where she recently s/p ORIF for tibial plateau fracture. Per EMS report the patient did have an ultrasound recently for pain and swelling in the area. ROS: See above HPI for pertinent positives & negatives. A total of 10 systems reviewed and were otherwise negative. PAST MEDICAL HISTORY:See Below PAST SURGICAL HISTORY:See Below FAMILY HISTORY:See Below SOCIAL HISTORY:See Below HOME MEDICATIONS:See Below ALLERGIES:See Below VITALS:See Below PHYSICAL EXAMINATION: GENERAL: Awake, alert, uncomfortable-appearing, in no distress HENT: Normocephalic, atraumatic. Oropharynx with dry mucous membranes and otherwise unremarkable. EYES: Normal conjunctiva. Sclera non-icteric. NECK: Supple. No nuchal rigidity. FROM. No JVD. RESPIRATORY: Clear to auscultation. CARDIAC: Regular rate, normal rhythm. Extremities warm and well perfused. Pulses equal. ABDOMEN: Soft, non-distended. No tenderness to palpation. No rebound or guarding. No masses. RECTAL: Deferred. MUSCULOSKELETAL: Chest examination reveals no tenderness. The back is symmetrical on inspection without obvious abnormality. There is no CVA tenderness to palpation. LOWER EXTREMITIES: erythema warmth tenderness and area of fluctuance just below the left knee adjacent to her incision site. There is 1+ edema distally. D istal PMS is intact. NEURO: Normal sensorium. No sensory or motor deficits noted. SKIN: No rash or jaundice noted. ED COURSE: Critical Care: I have personally spent greater than 75 minutes of critical care time in the direct management of this patient. This includes bedside care, interpretation of diagnostic studies, and testing, discussion with consultants, patient, and family members, and other required patient management activities. This 75 minutes is in excess of all separately billable procedures. Russell Newberry MD Past Med/Surg History Medical History Cerebral aneurysm "[facility] 07/22/13 3 mm fusiform aneurysm takeoff right [employer]IST" CKD (chronic kidney disease), stage III Depression Esophagitis (12/26/10) History of papillary adenocarcinoma of thyroid HLD (hyperlipidemia) HTN (hypertension) Hypertensive heart disease Hypothyroidism MERY (obstructive sleep apnea) Panic disorder (12/26/10) Thyroid cancer Surgical History Status post appendectomy Status post thyroidectomy Family History Other Diabetes Hypertension Social History Smoking Status: Never smoker Second Hand Exposure: No; Hx Alcohol Use: No Hx Substance Use: No Preferred Language: Uzbek Communication Ability: Effective Sample Mounter Required: No Beliefs That Will Affect Care: None Current Living Situation: Family Current Living Situation Comment: lives with grandsom Other Information That Helps Us Care for You: No Feels Safe at Home: Yes Assistive Devices: Walker Allergies Allergies Allergy/AdvReac Type Severity Reaction Status Date / Time No Known Drug Allergies Allergy Unknown Verified 02/04/21 22:27 Tlgtunx-Jyd-Tit Reductase AdvReac Intermediate MUSCLE Verified 02/04/21 22:19 Inhibitor ACHES-ELEVATED CK WITH LIPITOR PER HISTORY Home Meds Home Medications Medication Instructions Recorded Confirmed pantoprazole 40 mg tablet,delayed 40 mg PO BID 10/07/18 02/04/21 release levothyroxine 125 mcg tablet 125 mcg PO DAILYBB 09/18/20 02/04/21 atenolol 25 mg tablet 25 mg PO DAILY 01/06/21 02/04/21 clonazepam 1 mg tablet 1 mg PO HS 02/04/21 02/04/21 losartan 25 mg tablet 25 mg PO QAM 02/04/21 02/04/21 melatonin 5 mg tablet 5 mg PO HS PRN 02/04/21 02/04/21 sertraline 100 mg tablet 100 mg PO HS 02/04/21 02/04/21 Previous Rx's Medication Instructions Recorded aspirin 81 mg tablet,delayed 81 mg PO BID #60 tab 01/06/21 release Results & Data (ED) Vital Signs Vital Signs - 24 hr 02/04/21 12:45 02/04/21 14:03 02/04/21 15:17 Temperature 36.8 C Temperature Source Oral Pulse Rate 94 H Pulse Rate [Apical] 82 86 Respiratory Rate 18 18 18 Blood Pressure 145/74 H Blood Pressure [Left Arm] 128/53 L 126/67 Blood Pressure Mean 97 Blood Pressure Mean [Left Arm] 78 86 Pulse Oximetry 95 94 96 Oxygen Delivery Method Room Air Room Air Room Air Sepsis Recent Fever Within 48 Hours No Sepsis New/Unexplained Change in Mental Status No Sepsis Action Taken by Nursing No Action Required Laboratory Data Attestation: I reviewed the patient's lab results. Result diagrams: 02/04/21 13:03 02/04/21 14:00 Lab Results 02/04/21 02/04/21 02/04/21 Range/Units 13:03 13:03 14:00 WBC 20.25 H (4.8-10.8) K/uL RBC 3.79 L (4.2-5.4) M/uL Hgb 10.5 L (12.0-16.0) g/dL Hct 32.1 L (37-47) % MCV 84.7 (80-100) fL MCH 27.7 (25-34) pg MCHC 32.7 (32-36) g/dL RDW Std Deviation 42.4 (36.4-46.3) fL RDW Coeff of Brandan 13.8 (11.5-14.5) % Plt Count 546 H (130-400) K/uL MPV 8.8 (7.4-10.4) fL Immature Gran % (Auto) 0.4 % Neut % (Auto) 90.2 % Lymph % (Auto) 2.2 % [place] % (Auto) 7.1 % Eos % (Auto) 0.0 % Baso % (Auto) 0.1 % Neut # (Auto) 18.25 H (1.4-6.5) K/uL Lymph # (Auto) 0.44 L (1.2-3.4) K/uL [place] # (Auto) 1.44 H (0.11-0.59) K/uL Eos # (Auto) 0.01 (0-0.5) K/uL Baso # (Auto) 0.02 (0-0.2) K/uL Immature Gran # (Auto) 0.09 H (0.00-0.02) K/uL ESR (0-30) mm/hr PT 11.0 (9.0-12.0) Seconds INR 1.1 (0.9-1.1) APTT 27.9 (21.0-31.0) Seconds PTT Ratio 1.1 Sodium 134 L (136-145) mmol/L Potassium 3.7 (3.5-5.1) mmol/L Chloride 101 (98-107) mmol/L Carbon Dioxide 24 (21-32) mmol/L Anion Gap 10.0 (3-11) BUN 42 H (7-18) mg/dl Creatinine 1.74 H (0.6-1.2) mg/dl Est Cr Clr Drug Dosing 26.3 ml/min Est GFR ( Amer) 30.9 ml/min Est GFR (Non-Af Amer) 26.6 ml/min BUN/Creatinine Ratio 24.1 H (10-20) Glucose 119 H (70-99) mg/dl Lactate (0.4-2.0) mmol/L Calcium 9.6 (8.5-10.1) mg/dl Total Bilirubin 0.6 (0.2-1) mg/dl AST 14 L (15-37) U/L ALT 13 (12-78) U/L Alkaline Phosphatase 151 H (45-117) U/L Total Creatine Kinase 46 (26-192) U/L Troponin I < 0.015 (0-0.045) ng/ml C-Reactive Protein (0-0.29) mg/dl Total Protein 6.9 (6.4-8.2) gm/dl Albumin 2.5 L (3.4-5.0) gm/dl Globulin 4.4 H (2.5-4.0) gm/dl Albumin/Globulin Ratio 0.6 L (0.9-2) Procalcitonin (0-0.5) ng/ml COVID-19 Eval Order SARS-CoV-2 (PCR) (Negative) 02/04/21 02/04/21 02/04/21 Range/Units 14:00 14:00 14:00 WBC (4.8-10.8) K/uL RBC (4.2-5.4) M/uL Hgb (12.0-16.0) g/dL Hct (37-47) % MCV (80-100) fL MCH (25-34) pg MCHC (32-36) g/dL RDW Std Deviation (36.4-46.3) fL RDW Coeff of Brandan (11.5-14.5) % Plt Count (130-400) K/uL MPV (7.4-10.4) fL Immature Gran % (Auto) % Neut % (Auto) % Lymph % (Auto) % [place] % (Auto) % Eos % (Auto) % Baso % (Auto) % Neut # (Auto) (1.4-6.5) K/uL Lymph # (Auto) (1.2-3.4) K/uL [place] # (Auto) (0.11-0.59) K/uL Eos # (Auto) (0-0.5) K/uL Baso # (Auto) (0-0.2) K/uL Immature Gran # (Auto) (0.00-0.02) K/uL ESR 87 H (0-30) mm/hr PT (9.0-12.0) Seconds INR (0.9-1.1) APTT (21.0-31.0) Seconds PTT Ratio Sodium (136-145) mmol/L Potassium (3.5-5.1) mmol/L Chloride (98-107) mmol/L Carbon Dioxide (21-32) mmol/L Anion Gap (3-11) BUN (7-18) mg/dl Creatinine (0.6-1.2) mg/dl Est Cr Clr Drug Dosing ml/min Est GFR ( Amer) ml/min Est GFR (Non-Af Amer) ml/min BUN/Creatinine Ratio (10-20) Glucose (70-99) mg/dl Lactate (0.4-2.0) mmol/L Calcium (8.5-10.1) mg/dl Total Bilirubin (0.2-1) mg/dl AST (15-37) U/L ALT (12-78) U/L Alkaline Phosphatase (45-117) U/L Total Creatine Kinase (26-192) U/L Troponin I (0-0.045) ng/ml C-Reactive Protein 41.90 H (0-0.29) mg/dl Total Protein (6.4-8.2) gm/dl Albumin (3.4-5.0) gm/dl Globulin (2.5-4.0) gm/dl Albumin/Globulin Ratio (0.9-2) Procalcitonin 3.20 H (0-0.5) ng/ml COVID-19 Eval Order SARS-CoV-2 (PCR) (Negative) 02/04/21 02/04/21 02/04/21 Range/Units 14:03 14:03 15:00 WBC (4.8-10.8) K/uL RBC (4.2-5.4) M/uL Hgb (12.0-16.0) g/dL Hct (37-47) % MCV (80-100) fL MCH (25-34) pg MCHC (32-36) g/dL RDW Std Deviation (36.4-46.3) fL RDW Coeff of Brandan (11.5-14.5) % Plt Count (130-400) K/uL MPV (7.4-10.4) fL Immature Gran % (Auto) % Neut % (Auto) % Lymph % (Auto) % [place] % (Auto) % Eos % (Auto) % Baso % (Auto) % Neut # (Auto) (1.4-6.5) K/uL Lymph # (Auto) (1.2-3.4) K/uL [place] # (Auto) (0.11-0.59) K/uL Eos # (Auto) (0-0.5) K/uL Baso # (Auto) (0-0.2) K/uL Immature Gran # (Auto) (0.00-0.02) K/uL ESR (0-30) mm/hr PT (9.0-12.0) Seconds INR (0.9-1.1) APTT (21.0-31.0) Seconds PTT Ratio Sodium (136-145) mmol/L Potassium (3.5-5.1) mmol/L Chloride (98-107) mmol/L Carbon Dioxide (21-32) mmol/L Anion Gap (3-11) BUN (7-18) mg/dl Creatinine (0.6-1.2) mg/dl Est Cr Clr Drug Dosing ml/min Est GFR ( Amer) ml/min Est GFR (Non-Af Amer) ml/min BUN/Creatinine Ratio (10-20) Glucose (70-99) mg/dl Lactate 2.4 H* (0.4-2.0) mmol/L Calcium (8.5-10.1) mg/dl Total Bilirubin (0.2-1) mg/dl AST (15-37) U/L ALT (12-78) U/L Alkaline Phosphatase (45-117) U/L Total Creatine Kinase (26-192) U/L Troponin I (0-0.045) ng/ml C-Reactive Protein (0-0.29) mg/dl Total Protein (6.4-8.2) gm/dl Albumin (3.4-5.0) gm/dl Globulin (2.5-4.0) gm/dl Albumin/Globulin Ratio (0.9-2) Procalcitonin (0-0.5) ng/ml COVID-19 Eval Order Covid19 at [facility] SARS-CoV-2 (PCR) NEGATIVE (Negative) Administered Medications Clonazepam (Clonazepam 0.5 Mg Tab) 0.5 mg PO HS SABA Stop: 03/06/21 20:59 Last Admin: 02/04/21 22:27 Dose: Not Given Documented by: [id number] Docusate Sodium (Docusate Sodium 100 Mg Cap) 100 mg PO BID [facility] Stop: 03/06/21 22:44 Last Admin: 02/04/21 22:45 Dose: 100 mg Documented by: [id number] Heparin Sodium (Porcine) (Heparin Sod 5,000 Unit/0.5 Ml Vial) 5,000 units SQ Q12 SABA Stop: 03/06/21 22:44 Last Admin: 02/04/21 22:46 Dose: 5,000 units Documented by: [id number] Piperacillin Sod/Tazobactam (Sod 3.375 gm/ Dextrose) 115 mls @ 28.75 mls/hr IV Q8H [facility]; Protocol Stop: 02/11/21 21:59 Last Admin: 02/04/21 22:45 Dose: 28.8 mls/hr Documented by: [id number] Sodium Chloride (Nss 1000ml) 1,000 mls @ 100 mls/hr IV .Q10H [facility] Stop: 02/05/21 06:00 Last Admin: 02/04/21 22:45 Dose: 100 mls/hr Documented by: [id number] Daptomycin 250 mg/ Syringe 5 mls @ 2.5 mls/min IV Q48H [facility]; Protocol Stop: 02/12/21 00:00 Last Admin: 02/05/21 00:04 Dose: 2.5 mls/min Documented by: [id number] Pantoprazole Sodium (Pantoprazole 40 Mg Tab) 40 mg PO BID [facility] Stop: 03/06/21 22:14 Last Admin: 02/04/21 22:45 Dose: 40 mg Documented by: [id number] Sennosides (Senna 8.6 Mg Tab) 17.2 mg PO [facility] Stop: 03/06/21 22:44 Last Admin: 02/04/21 22:46 Dose: 17.2 mg Documented by: [id number] Sertraline HCl (Sertraline Hcl 100 Mg Tablet) 100 mg PO [facility] Stop: 03/06/21 22:14 Last Admin: 02/04/21 22:46 Dose: 100 mg Documented by: [id number] Discontinued Medications Bupivacaine HCl (Bupivacaine 0.5 % 5 Mg/1 Ml Mpf 30ml Vial) Confirm Administered Dose 30 ml .ROUTE .STK-MED ONE Stop: 02/04/21 16:41 Last Admin: 02/04/21 18:28 Dose: 30 ml Documented by: [id number] Fentanyl Citrate (Fentanyl Citrate 100 Mcg/2 Ml Vial) 25 mcg IV NOW STA Stop: 02/04/21 12:49 Last Admin: 02/04/21 14:49 Dose: Not Given Documented by: [id number] Fentanyl Citrate (Fentanyl Citrate 100 Mcg/2 Ml Vial) 50 mcg IV Q5M PRN PRN Reason: PACU Use Only-Pain Stop: 02/05/21 00:18 Last Admin: 02/04/21 19:44 Dose: 50 mcg Documented by: [id number] Admin: 02/04/21 19:07 Dose: 50 mcg Documented by: [id number] Gentamicin Sulfate (Gentamicin Sulfate 40 Mg/Ml 2 Ml Vial) Confirm Administered Dose 240 mg .ROUTE .STK-MED ONE Stop: 02/04/21 16:33 Last Admin: 02/04/21 18:27 Dose: 240 mg Documented by: [id number] Haloperidol Lactate (Haloperidol Lactate 5 Mg/Ml 1 Ml Vial) 5 mg IV NOW STA Stop: 02/04/21 20:05 Last Admin: 02/04/21 20:12 Dose: 5 mg Documented by: [id number] Haloperidol Lactate (Haloperidol Lactate 5 Mg/Ml 1 Ml Vial) Confirm Administered Dose 5 mg .ROUTE .STK-MED ONE Stop: 02/04/21 20:09 Last Admin: 02/05/21 01:18 Dose: Not Given Documented by: [id number] Sodium Chloride (Nss) 500 mls @ 999 mls/hr IV .Q31M ONE Stop: 02/04/21 13:18 Last Infusion: 02/04/21 15:32 Dose: 0 mls/hr Documented by: [id number] Admin: 02/04/21 14:49 Dose: 999 mls/hr Documented by: [id number] Acetaminophen (Ofirmev) 1,000 mg in 100 mls @ 400 mls/hr IV NOW STA Stop: 02/04/21 13:02 Last Admin: 02/04/21 14:49 Dose: Not Given Documented by: [id number] Piperacillin Sod/Tazobactam Sod (Zosyn) 4.5 gm in 120 mls @ 240 mls/hr IV NOW ONE; Protocol Stop: 02/04/21 16:29 Last Infusion: 02/05/21 01:18 Dose: 0 mls/hr Documented by: [id number] Admin: 02/04/21 15:57 Dose: 240 mls/hr Documented by: [id number] Vancomycin HCl 1,750 mg/ (Sodium Chloride) 535 mls @ 200 mls/hr IV NOW STA Stop: 02/04/21 18:32 Last Infusion: 02/05/21 01:19 Dose: 0 mls/hr Documented by: [id number] Admin: 02/04/21 16:22 Dose: 200 mls/hr Documented by: [id number] Tranexamic Acid (Tranexamic Acid / 0.7% Nacl) 1,000 mg in 100 mls @ 600 mls/hr IV PREOP SABA Stop: 02/04/21 21:00 Last Infusion: 02/05/21 01:19 Dose: 0 mls/hr Documented by: [id number] Admin: 02/04/21 18:10 Dose: 600 mls/hr Documented by: [id number] Albumin Human (Albumin 5%) 250 mls @ 500 mls/hr IV ONE ONE Stop: 02/04/21 21:15 Last Infusion: 02/04/21 21:15 Dose: 0 mls/hr Documented by: [id number] Admin: 02/04/21 20:45 Dose: 500 mls/hr Documented by: [id number] Lidocaine HCl (Lidocaine 1% Local 20 Ml Vial) Confirm Administered Dose 20 ml .ROUTE .STK-MED ONE Stop: 02/04/21 16:41 Last Admin: 02/04/21 18:29 Dose: 30 ml Documented by: [id number] Metoprolol Tartrate (Metoprolol Tartrate 1 Mg/Ml Vial) 5 mg IV NOW STA Stop: 02/04/21 18:59 Last Admin: 02/04/21 19:01 Dose: 5 mg Documented by: [id number] Metoprolol Tartrate (Metoprolol Tartrate 1 Mg/Ml Vial) Confirm Administered Dose 5 mg IV .STK-MED ONE Stop: 02/04/21 19:00 Last Admin: 02/04/21 22:41 Dose: Not Given Documented by: [id number] Metoprolol Tartrate (Metoprolol Tartrate 1 Mg/Ml Vial) 5 mg IV NOW STA Stop: 02/04/21 19:25 Last Admin: 02/04/21 19:39 Dose: 5 mg Documented by: [id number] Phenylephrine HCl (Phenylephrine 100mcg/Ml 5ml Syr) 100 mcg IV UD ONE Stop: 02/04/21 20:35 Last Admin: 02/04/21 20:26 Dose: 100 mcg Documented by: [id number] Cosigned by: [id number] Vancomycin HCl (Vancomycin Hcl 1000mg/20ml Vial) Confirm Administered Dose 50 mg .ROUTE .STK-MED ONE Stop: 02/04/21 16:33 Last Admin: 02/04/21 18:27 Dose: 1,000 mg Documented by: [id number] Imaging Data Radiologist's Impression: Head CT 02/04/21 12:[address] DOSE: 537.48 mGy.cm HISTORY: Fall. Left-sided headache. TECHNIQUE: Multiaxial CT images of the head were performed without the use of intravenous contrast. Automated exposure control was utilized for this study. A dose lowering technique was utilized adhering to the principles of ALARA. Comparison: Head CT 01/02/2021. Findings: The paranasal sinuses and mastoid air cells are clear. The calvarium and skull base are intact. There is no mass, hematoma, midline shift, acute infarct. White matter hypodensity is nonspecific but suggestive of microvascular ischemic change. The ventricles and sulci demonstrate mild age-related involutional changes. Stable 7 mm hypodense focus within the right frontal lobe. This may represent calcification or a cavernoma. Impression: No significant change compared to the prior study. No acute intracranial abnormality. ACT 112: Negative or not required by law. Electronically signed by: Kelvin Espinosa M.D. 02/04/2021 3:31 PM Discharge Plan Visit Data Chief Complaint: Fall Stated Complaint: FALL ED Provider: Russell Newberry Discharge Problem: Fall from standing, Sepsis, Post-operative infection, Acute on chronic renal insufficiency, Leukocytosis Discharge Instructions Interventions: ED Discharge Assessment Last Done: 02/04/21 16:09 Discharge Problem: Fall from standing Qualifiers: Encounter type: initial encounter Qualified Code(s): W19.XXXA - Unspecified fall, initial encounter Sepsis Qualifiers: Sepsis type: sepsis due to unspecified organism Sepsis acute organ dysfunction status: with acute organ dysfunction Severe sepsis acute organ dysfunction type: acute renal failure Acute renal failure type: unspecified Severe sepsis shock status: without septic shock Qualified Code(s): A41.9 - Sepsis, unspecified organism Post-operative infection Qualifiers: Encounter type: initial encounter Postoperative infection type: unspecified type Qualified Code(s): T81.40XA - Infection following a procedure, unspecified, initial encounter Leukocytosis Qualifiers: Leukocytosis type: unspecified Qualified Code(s): D72.829 - Elevated white blood cell count, unspecified
--- NOTE | 2021-02-04 13:39 | XRay Report ---
XR knee LT 3V, XR tibia fibula LT 2V HISTORY: 85 years-old Female pain fall . Acute left knee pain status post fall COMPARISON: Left knee radiographs 01/02/2021, a 26/09/2020 TECHNIQUE: 3 views of the left knee with 2 views of the left tibia and fibula FINDINGS: KNEE: Demineralized appearance of the bones. Subacute fixated medial tibial plateau and lateral tibial spin e fractures with medial plate and screw fusion. Moderate soft tissue swelling is most pronounced ante romedially. Large joint effusion. Mild tricompartmental osteoarthritis. No additional acute fracture, dislocation or opaque foreign body. Mild soft tissue gas within the infrapatellar tissues. TIBIA/FIBULA: There is moderate medial soft tissue swelling with question soft tissue gas within the calf. No acute fracture or dislocation. IMPRESSION: 1. No acute fracture or dislocation. 2. Fixated subacute medial tibial plateau fracture with unchanged alignment and intact hardware. 3. Moderate soft tissue swelling with areas of soft tissue gas. Correlate with clinical exam findings to exclude infection. 4. Large knee joint effusion. ACT 112: Negative or not required by law. The above report was generated using voice recognition software. It may contain grammatical, syntax o r spelling errors. Electronically signed by: Fabricio Desouza M.D. 02/04/2021 1:38 PM
--- NOTE | 2021-02-04 13:40 | XRay Report ---
XR chest 1V portable HISTORY: 85 years-old Female weakness, fall . Acute weakness with chest trauma status post fall COMPARISON: Chest radiograph 01/06/2021 TECHNIQUE: Portable AP view of the chest FINDINGS: Cardiac silhouette is enlarged. No pneumothorax. Pulmonary vascular congestion with interstitial coar sening. Unchanged mild blunting of the costophrenic angles. No large pleural effusion. Mild bibasilar opacities. Hiatal hernia. Degenerative changes of the shoulders and spine. Surgical clip is again no jo projecting over the left lung base and also within the neck. IMPRESSION: Cardiomegaly with pulmonary vascular congestion and interstitial coarsening suggestive of pulmonary edema. ACT 112: Negative or not required by law. The above report was generated using voice recognition software. It may contain grammatical, syntax o r spelling errors. Electronically signed by: Fabricio Desouza M.D. 02/04/2021 1:39 PM
--- NOTE | 2021-02-04 13:42 | XRay Report ---
XR pelvis 1-2V routine CLINICAL HISTORY: pain fall COMPARISON: None. DISCUSSION: There is minimal cortical irregularity of at the superior aspect of the left trochanter which could r epresent degenerative process or nondisplaced fracture. There is also questionable cortical irregularity at the lateral aspect of the right femur which may o r may not represent nondisplaced fracture. Overall evaluation is significantly limited due to diffuse severe osteopenia and possibly soft tissue edema. Lumbar scoliosis and severe degenerative changes of the lumbar spine are seen. IMPRESSION: Questionable cortical irregularity of the proximal right and left femur which might represent degener ative process or nondisplaced fracture. Further evaluation with CT of the pelvis might be considered if clinically indicated. Diffuse severe osteopenia limits evaluation. Severe degenerative changes of the lumbar spine and scoliosis. ACT 112: Negative or not required by law. The above report was generated using voice recognition software. It may contain grammatical, syntax o r spelling errors. Electronically signed by: Remedios Aguirre DO 02/04/2021 1:41 PM
[2021-02-04 14:13] LABS: Basophils # (auto) 0.02 K/uL (0-0.2); Basophils % (auto) 0.1 %; Eosinophils # (auto) 0.01 K/uL (0-0.5); Hematocrit (blood only) 32.1 % (37-47); Hemoglobin 10.5 g/dL (12.0-16.0); Immature Granulocytes # (auto) 0.09 K/uL (0.00-0.02); Immature Granulocytes % (auto) 0.4 %; Lymphocytes # (auto) 0.44 K/uL (1.2-3.4); Lymphocytes % (auto) 2.2 %; Mean Corpuscular Hemoglobin 27.7 pg (25-34); Mean Corpuscular Hgb Conc 32.7 g/dL (32-36); Mean Corpuscular Volume 84.7 fL (80-100); Mean Platelet Volume 8.8 fL (7.4-10.4); Monocytes # (auto) 1.44 K/uL (0.11-0.59); Monocytes % (auto) 7.1 %; Neutrophils # (auto) 18.25 K/uL (1.4-6.5); Neutrophils % (auto) 90.2 %; Platelet Count 546 K/uL (130-400); RDW Coefficient of Variation 13.8 % (11.5-14.5); RDW Standard Deviation 42.4 fL (36.4-46.3); Red Blood Count 3.79 M/uL (4.2-5.4); White Blood Count 20.25 K/uL (4.8-10.8)
[2021-02-04 14:24] LABS: INR 1.1 (0.9-1.1); Partial Thromboplastin Ratio 1.1; Partial Thromboplastin Time 27.9 Seconds (21.0-31.0)
[2021-02-04 14:30] LABS: Alanine Aminotransferase 13 U/L (12-78); Albumin Level 2.5 gm/dl (3.4-5.0); Aspartate Aminotransferase 14 U/L (15-37); BUN Creatinine Ratio 24.1 (10-20); Blood Urea Nitrogen 42 mg/dl (7-18); Calcium 9.6 mg/dl (8.5-10.1); Carbon Dioxide 24 mmol/L (21-32); Chloride 101 mmol/L (98-107); Creatinine Clr Calc Pharmacy 26.3 ml/min; Est GFR (African American) 30.9 ml/min; Est GFR (Non-African American) 26.6 ml/min; Glucose 119 mg/dl (70-99); Potassium 3.7 mmol/L (3.5-5.1); Sodium 134 mmol/L (136-145)
[2021-02-04 14:34] LABS: Albumin Globulin Ratio 0.6 (0.9-2); Alkaline Phosphatase 151 U/L (45-117); Bilirubin,Total 0.6 mg/dl (0.2-1); Creatine Kinase 46 U/L (26-192); Globulin 4.4 gm/dl (2.5-4.0); Total Protein 6.9 gm/dl (6.4-8.2); Troponin I < 0.015 ng/ml (0-0.045)
--- NOTE | 2021-02-04 15:32 | CT Scan Report ---
HEAD CT NONCONTRAST CT DOSE: 537.48 mGy.cm HISTORY: Fall. Left-sided headache. TECHNIQUE: Multiaxial CT images of the head were performed without the use of intravenous contrast. A utomated exposure control was utilized for this study. A dose lowering technique was utilized adheri ng to the principles of ALARA. Comparison: Head CT 01/02/2021. Findings: The paranasal sinuses and mastoid air cells are clear. The calvarium and skull base are int act. There is no mass, hematoma, midline shift, acute infarct. White matter hypodensity is nonspecifi c but suggestive of microvascular ischemic change. The ventricles and sulci demonstrate mild age-rela jo involutional changes. Stable 7 mm hypodense focus within the right frontal lobe. This may represe nt calcification or a cavernoma. Impression: No significant change compared to the prior study. No acute intracranial abnormality. ACT 112: Negative or not required by law. Electronically signed by: Kelvin Espinosa M.D. 02/04/2021 3:31 PM
--- NOTE | 2021-02-04 15:47 | History & Physical Report ---
Date of Service February 04, 2021 Assessment & Plan (1) Sepsis: (2) Infection: (3) Fall: (4) Acute kidney injury superimposed on chronic kidney disease: (5) PSVT (paroxysmal supraventricular tachycardia): (6) HTN (hypertension): (7) Hypothyroidism: (8) HLD (hyperlipidemia): (9) MERY (obstructive sleep apnea): Plan: This is an 85yo F with a PMH of hypertension, hyperlipidemia, CKD III, hypothyroidism and MERY not on CPAP who presents to the ED with worsening left lower extremity pain x4 days. Sepsis 2/2 left lower extremity infection in post-operative setting One month post-op s/p ORIF of left tibial plateau fracture by Dr. Smith Chappells well initially but developed worsening pain, redness and swelling to the area over the past week. Was seen at ortho follow up and underwent venous doppler of LLE that was negative for DVT Afebrile, HR 92, WBC 20.25, plt 546, ESR 87, CRP 41.90, procalcitonin 3.20, lactate 2.4 - repeat lactate ordered Evaluated by Dr. Latif in ER - taken for emergent washout of wound, possible wound VAC and Stimulan beads Started on empiric IV Vanco and Zosyn pre-op - will continue IV Dapto and Zosyn Follow wound culture, synovial fluid, blood culture Pain control, IV fluids, continued ortho care Fall at home In setting of LLE infection Fall precautions, PT/OT evaluation Patient lives at home with elderly Acute kidney injury superimposed on CKD III Cr elevated at 1.7, baseline ~ 1 In setting of sepsis, poor PO intake Continue IV fluids Daily BMP Hypertension Continue atenolol Holding losartan in setting of MOSES Paroxysmal SVT Monitor on tele, continue atenolol Hypothyroidism Continue levothyroxine Depression Continue sertraline DVT Ppx: SQ heparin Code status: FULL PCP: Bhupinder Dispo: Admitted to [facility] tele. Discharge planning ordered. Patient seen in collaboration with Dr. Dye. Please see addendum. History of Present Illness Chief Complaint: LLE pain, infection Primary Care Provider: Issac Roe, DO This is an 85yo F with a PMH of hypertension, hyperlipidemia, CKD III, hypothyroidism and MERY not on CPAP who presents to the ED with worsening left lower extremity pain x4 days. Patient is 1 month s/p ORIF of left tibial plateau fracture by Dr. Smith. Chappells well initially but developed worsening pain, redness and swelling to the area over the past week. Was seen at ortho follow up and underwent venous doppler of LLE that was negative for DVT. Came into ED today following fall at home. Son also notes she seems intermittently confused, which is different than her baseline. Has had decreased appetite over the past week or so. No fever, chills, headache, lightheadedness, CP, SOB, nausea, vomiting, abdominal pain, dysuria, diarrhea or constipation. Lives at home with her , sons are nearby and involved. Allergies Allergy/AdvReac Type Severity Reaction Status Date / Time No Known Drug Allergies Allergy Unknown Verified 02/04/21 22:27 Aaxubly-Ipf-Omj Reductase AdvReac Intermediate MUSCLE Verified 02/04/21 22:19 Inhibitor ACHES-ELEVATED CK WITH LIPITOR PER HISTORY cefazolin [From Anc] AdvReac Mild rash on Verified 02/08/21 14:39 abdomen Home Medications Medication Instructions Recorded Confirmed Type pantoprazole 40 mg tablet,delayed 40 mg PO BID 10/07/18 02/04/21 History release levothyroxine 125 mcg tablet 125 mcg PO DAILYBB 09/18/20 02/04/21 History aspirin 81 mg tablet,delayed 81 mg PO BID #60 tab 01/06/21 02/04/21 Rx release atenolol 25 mg tablet 25 mg PO DAILY 01/06/21 02/04/21 History clonazepam 1 mg tablet 1 mg PO HS 02/04/21 02/04/21 History losartan 25 mg tablet 25 mg PO QAM 02/04/21 02/04/21 History melatonin 5 mg tablet 5 mg PO HS PRN 02/04/21 02/04/21 History sertraline 100 mg tablet 100 mg PO HS 02/04/21 02/04/21 History Past Med/Surg History Medical History Cerebral aneurysm "MRA [facility] 07/22/13 3 mm 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 aneurysm 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" CKD (chronic kidney disease), stage III Depression Esophagitis (12/26/10) History of papillary adenocarcinoma of thyroid HLD (hyperlipidemia) HTN (hypertension) Hypertensive heart disease Hypothyroidism MERY (obstructive sleep apnea) Panic disorder (12/26/10) Thyroid cancer Surgical History Status post appendectomy Status post thyroidectomy Family History Other Diabetes Hypertension Social History Smoking Status: Never smoker Second Hand Exposure: No; Hx Alcohol Use: No Hx Substance Use: No Preferred Language: Armenian Communication Ability: Impaired Map Editor Required: No Beliefs That Will Affect Care: None Current Living Situation: Family Current Living Situation Comment: lives with grandsom Other Information That Helps Us Care for You: No Feels Safe at Home: Yes Assistive Devices: None Review of Systems Review of Systems: At least ten systems reviewed and negative except as noted in the HPI. Physical Exam Physical Exam: General Appearance: WD/WN, vitals as above, NAD, sitting up in bed, pleasant, conversing easily Head: normocephalic, atraumatic Eyes: normal inspection, PERRL, conjunctivae normal, anicteric sclerae ENT: external ear and nose normal, oropharynx normal Neck: normal visual inspection, trachea midline, no thyromegaly Respiratory: normal respiratory effort, lungs clear to auscultation, no wheeze, rales, rhonchi. No accessory muscle use Cardiovascular: regular rate, rhythm, no murmur, normal peripheral pulses. Vessels: no JVD Chest: normal inspection of chest Abdomen/GI: normal bowel sounds, soft, nontender, no hepatosplenomegaly Extremities/Musculoskeletal: LLE with bandage in place on anterior morales with extending erythema up to knee. 1+ No cyanosis or clubbing, extremities motor strength 5/5 Neurologic: PERRL, EOMI, accommodation nl, no face palsy, no dysarthria, CN's II-XI intact bilaterally and moves all extremities Psychiatric: A+Ox3, not to situation, euthymic affect Skin: no rashes, normal color, warm/dry Results & Data Results & Data ([facility]) Vital Signs (Past 12 Hours) Vital Signs Pulse Pulse Resp BP BP Pulse Ox 02/04/21 15:17 86 18 126/67 96 02/04/21 14:03 82 18 128/53 L 94 02/04/21 12:45 94 H 18 145/74 H 95 Laboratory Results Short CBC 02/04/21 Range/Units 13:03 WBC 20.25 H (4.8-10.8) K/uL Hgb 10.5 L (12.0-16.0) g/dL Hct 32.1 L (37-47) % Plt Count 546 H (130-400) K/uL BMP 02/04/21 14:00 Sodium 134 L Potassium 3.7 Chloride 101 Carbon Dioxide 24 BUN 42 H Creatinine 1.74 H Glucose 119 H Calcium 9.6 Cardiac Enzymes 02/04/21 Range/Units 14:00 Total Creatine Kinase 46 (26-192) U/L Troponin I < 0.015 (0-0.045) ng/ml Liver Function 02/04/21 Range/Units 14:00 Total Bilirubin 0.6 (0.2-1) mg/dl AST 14 L (15-37) U/L ALT 13 (12-78) U/L Alkaline Phosphatase 151 H (45-117) U/L Albumin 2.5 L (3.4-5.0) gm/dl Diagnostic Findings Head CT 02/04/21 12:[address] DOSE: 537.48 mGy.cm HISTORY: Fall. Left-sided headache. TECHNIQUE: Multiaxial CT images of the head were performed without the use of intravenous contrast. Automated exposure control was utilized for this study. A dose lowering technique was utilized adhering to the principles of ALARA. Comparison: Head CT 01/02/2021. Findings: The paranasal sinuses and mastoid air cells are clear. The calvarium and skull base are intact. There is no mass, hematoma, midline shift, acute infarct. White matter hypodensity is nonspecific but suggestive of microvascular ischemic change. The ventricles and sulci demonstrate mild age-related involutional changes. Stable 7 mm hypodense focus within the right frontal lobe. This may represent calcification or a cavernoma. Impression: No significant change compared to the prior study. No acute intracranial abnormality. ACT 112: Negative or not required by law. Electronically signed by: Kelvin Espinosa M.D. 02/04/2021 3:31 PM Knee X-Ray 02/04/21 12:44 XR knee LT 3V, XR tibia fibula LT 2V HISTORY: 85 years-old Female pain fall . Acute left knee pain status post fall COMPARISON: Left knee radiographs 01/02/2021, a 26/09/2020 TECHNIQUE: 3 views of the left knee with 2 views of the left tibia and fibula FINDINGS: KNEE: Demineralized appearance of the bones. Subacute fixated medial tibial plateau and lateral tibial spine fractures with medial plate and screw fusion. Moderate soft tissue swelling is most pronounced anteromedially. Large joint effusion. Mild tricompartmental osteoarthritis. No additional acute fracture, dislocation or opaque foreign body. Mild soft tissue gas within the infrapatellar tissues. TIBIA/FIBULA: There is moderate medial soft tissue swelling with question soft tissue gas within the calf. No acute fracture or dislocation. IMPRESSION: 1. No acute fracture or dislocation. 2. Fixated subacute medial tibial plateau fracture with unchanged alignment and intact hardware. 3. Moderate soft tissue swelling with areas of soft tissue gas. Correlate with clinical exam findings to exclude infection. 4. Large knee joint effusion. ACT 112: Negative or not required by law. The above report was generated using voice recognition software. It may contain grammatical, syntax or spelling errors. Electronically signed by: Fabricio Desouza M.D. 02/04/2021 1:38 PM Pelvis X-Ray 02/04/21 12:44 XR pelvis 1-2V routine CLINICAL HISTORY: pain fall COMPARISON: None. DISCUSSION: There is minimal cortical irregularity of at the superior aspect of the left trochanter which could represent degenerative process or nondisplaced fracture. There is also questionable cortical irregularity at the lateral aspect of the right femur which may or may not represent nondisplaced fracture. Overall evaluation is significantly limited due to diffuse severe osteopenia and possibly soft tissue edema. Lumbar scoliosis and severe degenerative changes of the lumbar spine are seen. IMPRESSION: Questionable cortical irregularity of the proximal right and left femur which might represent degenerative process or nondisplaced fracture. Further evaluation with CT of the pelvis might be considered if clinically indicated. Diffuse severe osteopenia limits evaluation. Severe degenerative changes of the lumbar spine and scoliosis. ACT 112: Negative or not required by law. The above report was generated using voice recognition software. It may contain grammatical, syntax or spelling errors. Electronically signed by: Remedios Aguirre DO 02/04/2021 1:41 PM Tibia/Fibula X-Ray 02/04/21 12:44 XR knee LT 3V, XR tibia fibula LT 2V HISTORY: 85 years-old Female pain fall . Acute left knee pain status post fall COMPARISON: Left knee radiographs 01/02/2021, a 26/09/2020 TECHNIQUE: 3 views of the left knee with 2 views of the left tibia and fibula FINDINGS: KNEE: Demineralized appearance of the bones. Subacute fixated medial tibial plateau and lateral tibial spine fractures with medial plate and screw fusion. Moderate soft tissue swelling is most pronounced anteromedially. Large joint effusion. Mild tricompartmental osteoarthritis. No additional acute fracture, dislocation or opaque foreign body. Mild soft tissue gas within the infrapatellar tissues. TIBIA/FIBULA: There is moderate medial soft tissue swelling with question soft tissue gas within the calf. No acute fracture or dislocation. IMPRESSION: 1. No acute fracture or dislocation. 2. Fixated subacute medial tibial plateau fracture with unchanged alignment and intact hardware. 3. Moderate soft tissue swelling with areas of soft tissue gas. Correlate with clinical exam findings to exclude infection. 4. Large knee joint effusion. ACT 112: Negative or not required by law. The above report was generated using voice recognition software. It may contain grammatical, syntax or spelling errors. Electronically signed by: Fabricio Desouza M.D. 02/04/2021 1:38 PM Chest X-Ray 02/04/21 12:46 XR chest 1V portable HISTORY: 85 years-old Female weakness, fall . Acute weakness with chest trauma status post fall COMPARISON: Chest radiograph 01/06/2021 TECHNIQUE: Portable AP view of the chest FINDINGS: Cardiac silhouette is enlarged. No pneumothorax. Pulmonary vascular congestion with interstitial coarsening. Unchanged mild blunting of the costophrenic angles. No large pleural effusion. Mild bibasilar opacities. Hiatal hernia. Degenerative changes of the shoulders and spine. Surgical clip is again noted projecting over the left lung base and also within the neck. IMPRESSION: Cardiomegaly with pulmonary vascular congestion and interstitial coarsening suggestive of pulmonary edema. ACT 112: Negative or not required by law. The above report was generated using voice recognition software. It may contain grammatical, syntax or spelling errors. Electronically signed by: Fabricio Desouza M.D. 02/04/2021 1:39 PM Supervising Physician Co-Signing Physician Notes Pt was seen and examined. Agreed with Swati SAMUELS exam, assessment and plan. 85yo F with a PMH of hypertension, hyperlipidemia, CKD III, hypothyroidism and MERY not on CPAP who presents to the ED with worsening left lower extremity pain x4 days. She had a fall at home today. she said that she developed worsening pain, redness and swelling in the LLE Denies any fever, chills, headache, lightheadedness, CP, SOB, nausea, vomiting, abdominal pain, dysuria, diarrhea or constipation. Lab on admission with WBC 20.25, plt 546, ESR 87, CRP 41.90, procalcitonin 3.20, lactate 2.4. Pt was evaluated by ortho that plan to take for emergent washout of wound, possible wound VAC and Stimulan beads. Started on empiric IV Vanco and Zosyn pre-op - will continue IV Dapto and Zosyn. Will follow blood cx. Will repeat CBC in am. Will monitor closely. MD Marnie (1) Fall Encounter type: initial encounter Qualified Code(s): W19.XXXA - Unspecified fall, initial encounter
[2021-02-04] MEDS ORDERED: LIDOCAINE 2% 2 ML VIAL/AMP(20MG/ML) INFIL ONE (15:48)
[2021-02-04] MEDS ORDERED: fentaNYL citrate 100 MCG/2 ML VIAL ONE ×3 (15:48→18:09)
[2021-02-04] MEDS ORDERED: PROPOFOL IV EMULSION 10 MG/ML 20 ML VIAL IV ONE (15:48)
[2021-02-04] MEDS ORDERED: ONDANSETRON INJ 2 MG/ML 2 ML VIAL ONE (15:48)
[2021-02-04] MEDS ORDERED: VANCOMYCIN HCL 1,750 MG in SODIUM CHLORIDE 0.9% 500 ML IV STA (15:52)
--- NOTE | 2021-02-04 15:52 | Anesthesiology Consultation ---
Date of Service February 04, 2021 Assessment & Plan (1) Encounter for pre-operative examination: Chart Review Chart Review: Acceptable Risk for Surgery and Patient NOT seen in Pre Admission Testing Consults Requested none History Surgery Operation Date: 02/04/21 11:35 Proposed Procedures p Left Knee Incision and Drainage - Severo Latif MD Operation Date: 02/04/21 16:30 Proposed Procedures p Incision and Drainage Knee(Left) - Severo Latif MD Height/Weight Height: 5 ft 6 in Weight: 80.9 kg Allergies Allergy/AdvReac Type Severity Reaction Status Date / Time Tebachy-Ufh-Epy Reductase AdvReac Intermediate MUSCLE Verified 02/04/21 16:01 Inhibitor ACHES-ELEVATED CK WITH LIPITOR PER HISTORY Medications Home Medications Medication Instructions Recorded Confirmed Last Taken pantoprazole 40 mg tablet,delayed 40 mg PO BID 10/07/18 02/04/21 02/03/21 release sertraline 50 mg tablet 50 mg PO QPM 10/07/18 02/04/21 02/03/21 levothyroxine 125 mcg tablet 125 mcg PO DAILYBB 09/18/20 02/04/21 02/03/21 clonazepam 1 mg tablet (Klonopin) 0.5 mg PO BID PRN #0 tab 09/21/20 02/04/21 Unknown aspirin 81 mg tablet,delayed 81 mg PO BID #60 tab 01/06/21 02/04/21 02/03/21 release atenolol 25 mg tablet 25 mg PO DAILY 01/06/21 02/04/21 02/03/21 losartan 25 mg tablet 50 mg PO QAM 02/04/21 02/04/21 02/03/21 Active Medications Generic Name Dose Route Start Last Admin Trade Name Freq PRN Reason Stop Dose Admin Piperacillin Sod/Tazobactam Sod 4.5 gm in 120 mls @ 240 mls/hr 02/04/21 16:00 02/04/21 15:57 Zosyn IV 02/04/21 16:29 240 mls/hr NOW ONE Administration Protocol Past Medical History Medical History Cerebral aneurysm "MRA [facility] 07/22/13 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" CKD (chronic kidney disease), stage III Depression Esophagitis (12/26/10) History of papillary adenocarcinoma of thyroid HLD (hyperlipidemia) HTN (hypertension) Hypertensive heart disease Hypothyroidism MERY (obstructive sleep apnea) Panic disorder (12/26/10) Thyroid cancer Past Family History Family History Other Diabetes Hypertension Past Surgical History Surgical History Status post appendectomy Status post thyroidectomy Social History Smoking Status: Former smoker Hx Alcohol Use: No Hx Substance Use: No Physical Exam Vital Signs Last Vital Signs Temp 36.8 C 02/04/21 12:45 Pulse 86 02/04/21 15:17 Resp 18 02/04/21 15:17 BP 126/67 02/04/21 15:17 Pulse Ox 96 02/04/21 15:17 Testing Laboratory Results 02/04/21 13:03 02/04/21 14:00 PT 11.0 Seconds (9.0-12.0) 02/04/21 13:03 INR 1.1 (0.9-1.1) 02/04/21 13:03 APTT 27.9 Seconds (21.0-31.0) 02/04/21 13:03 Electrocardiogram Date: 02/04/21 Findings: + ST @ (105) When compared with ECG from 05-Jan-2021, non-specific change n ST segment in lateral leads, T wave amplitude has decreased in anteriolateral leads.
[2021-02-04] MEDS ORDERED: PIPERACILLIN/TAZOBACTAM 4.5 GM/120 ML BAG IV ONE (16:00)
[2021-02-04] MEDS ORDERED: PIPERACILL/TAZOBAC CONSULT ACTIVE PRN (16:03)
[2021-02-04] MEDS ORDERED: VANCOMYCIN CONSULT ACTIVE PRN (16:05)
[2021-02-04] MEDS ORDERED: ePHEDrine sulfate 50 MG/ML AMP IV PRN (16:18)
[2021-02-04] MEDS ORDERED: ONDANSETRON INJ 2 MG/ML 2 ML VIAL IV PRN (16:18)
[2021-02-04] MEDS ORDERED: ATROPINE SULFATE 0.1 MG/ML 10ML SYR IV PRN (16:18)
[2021-02-04] MEDS ORDERED: VANCOMYCIN HCL 1000MG/20ML VIAL ONE (16:32)
[2021-02-04] MEDS ORDERED: GENTAMICIN SULFATE 40 MG/ML 2 ML VIAL ONE (16:32)
--- NOTE | 2021-02-04 16:37 | Orthopedic Progress Note ---
Date of Service February 04, 2021 Results & Data ([facility]) Vital Signs (Past 12 Hours) Vital Signs Temp Pulse Pulse Pulse Resp BP BP 02/04/21 16:10 36.7 C 110 H 20 127/62 02/04/21 15:17 86 18 126/67 02/04/21 14:03 82 18 128/53 L 02/04/21 12:45 36.8 C 94 H 18 145/74 H Pulse Ox 02/04/21 16:10 98 02/04/21 15:17 96 02/04/21 14:03 94 02/04/21 12:45 95
[2021-02-04] MEDS ORDERED: LIDOCAINE 1% LOCAL 20 ML VIAL ONE (16:40)
[2021-02-04] MEDS ORDERED: BUPIVACAINE 0.5 % 5 MG/1 ML MPF 30ML VIAL ONE (16:40)
--- NOTE | 2021-02-04 16:41 | Orthopedic Consultation ---
Date of Consultation February 04, 2021 Assessment & Plan (1) Left leg swelling: Patient is s/p ORIF left tibial plateau fracture on 01/02/[address] Smith. Presented to ED today with complaints of left leg increased pain, swelling, redness and warmth. Brought by her son. Seen and evaluted by Dr. Latif, please see his dictated note regarding further details. Plan to take to OR emergently for Incision and Drainage left leg wound, possibly her knee for suspected infection. Elevated WBC, CRP, and ESR. Afebrile. Consent signed and on chart. Currently NPO. Patient and family understand and agree with the plan. Surgical site marked, antibiotics started. History of Present Illness Reason for Consultation: left leg pain and swelling. Please see Dr. Latif's dictation for further details regarding the consultation. History of Present Illness Please see Dr. Latif's dictation for further details regarding the consultation., currently pending. Allergies Allergy/AdvReac Type Severity Reaction Status Date / Time Hlogwzs-Ctn-Npq Reductase AdvReac Intermediate MUSCLE Verified 02/04/21 16:01 Inhibitor ACHES-ELEVATED CK WITH LIPITOR PER HISTORY Home Medications Medication Instructions Recorded Confirmed Type pantoprazole 40 mg tablet,delayed 40 mg PO BID 10/07/18 02/04/21 History release sertraline 50 mg tablet 50 mg PO QPM 10/07/18 02/04/21 History levothyroxine 125 mcg tablet 125 mcg PO DAILYBB 09/18/20 02/04/21 History clonazepam 1 mg tablet (Klonopin) 0.5 mg PO BID PRN #0 tab 09/21/20 02/04/21 Rx aspirin 81 mg tablet,delayed 81 mg PO BID #60 tab 01/06/21 02/04/21 Rx release atenolol 25 mg tablet 25 mg PO DAILY 01/06/21 02/04/21 History losartan 25 mg tablet 50 mg PO QAM 02/04/21 02/04/21 History Patient History Medical History Cerebral aneurysm "MRA [facility] 07/22/13 3 mm 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 aneurysm 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" CKD (chronic kidney disease), stage III Depression Esophagitis (12/26/10) History of papillary adenocarcinoma of thyroid HLD (hyperlipidemia) HTN (hypertension) Hypertensive heart disease Hypothyroidism MERY (obstructive sleep apnea) Panic disorder (12/26/10) Thyroid cancer Surgical History Status post appendectomy Status post thyroidectomy Family History Other Diabetes Hypertension Social History Smoking Status: Former smoker Second Hand Exposure: No; Hx Alcohol Use: No Hx Substance Use: No Preferred Language: Citizen Of [place] Communication Ability: Effective Double Bass Player Required: No Beliefs That Will Affect Care: None marital status: / Current Living Situation: Family Current Living Situation Comment: Lives with GrandSon Feels Safe at Home: Yes Assistive Devices: Walker Results & Data ([facility]) Vital Signs (Past 12 Hours) Vital Signs Temp Pulse Pulse Pulse Resp BP BP 02/04/21 16:10 36.7 C 110 H 20 127/62 02/04/21 15:17 86 18 126/67 02/04/21 14:03 82 18 128/53 L 02/04/21 12:45 36.8 C 94 H 18 145/74 H Pulse Ox 02/04/21 16:10 98 02/04/21 15:17 96 02/04/21 14:03 94 02/04/21 12:45 95
--- NOTE | 2021-02-04 17:19 | Consultation Report ---
DATE OF SERVICE: 02/04/2021 HISTORY OF PRESENT ILLNESS: Claudia is an 85-year-old patient. She is 1 month status post ORIF of a left tibial plateau fracture done by Dr. Smith. Her recovery has been complicated by poor diet and malaise. Additionally, her son notes that she has been a little bit more confused recently than normal. She came into the ER today because she had a fall. 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 She today is somewhat confused. She does not really recall that she has had surgery or that she fell. She does not know who she is and where she is, but not what the year is. She is afe brile. Her vital signs are stable. She denies any particular complaints in terms of pain and has no t reported any fever, chills, sweats, or drainage. She did come into the ER because of swelling and had an ultrasound done, which showed a hematoma around her incision. Her son reports that this has g graciela worse in terms of size, redness and swelling and complaints of pain by his mother. Her white c ount is 20,000, hemoglobin 10, hematocrit 32, platelets 546. Sed rate is 87. PRP is noted. She has mild renal insufficiency. Lactate is 2.4. Her CRP is 42. X-rays are reviewed and demonstrate some potential gas within the soft tissue. Positive effusion in the knee and positive soft tissue swelli ng. She also has a medial tibial plate in place with anatomic alignment of her fracture. No evidenc e of complication. Office notes and Dr. Smith's operative report are reviewed. PHYSICAL EXAMINATION: Dorsalis pedis is 1+. She has 5-/5 ankle and toe plantar flexion, dorsiflexion , inversion and eversion strength. She can do a straight leg raise and actively extend her knee. He r knee motion is 0/10/70. There is a small amount of fluid within the knee. It does not appear to b e particularly painful. Her incision anteromedial knee is enlarged with a significant amount of subc utaneous fluid. There is erythema at this area and surrounding distally and over laterally. She has some mild tenderness over her calf. Her ultrasound several days ago showed negative DVT. She has b een on aspirin for DVT prophylaxis. Her sensation is intact. She is able to do a straight leg raise . The foot is not swollen, but there is 2+ edema mostly in the pretibial area. ASSESSMENT AND PLAN: She has a hematoma. Possibly transitioned into an infection. I am recommendin g an incision and drainage of the wound. Possible wound VAC and Stimulan beads. Aspiration of the k nee. I have coordinated care with medicine. They will start her on vancomycin and Zosyn. We will p roceed directly over to the operating room for treatment. An informed consent was obtained. Plan to be admitted to the hospital for IV antibiotics and other care as necessary. Job ID: [id number]
[2021-02-04] MEDS ORDERED: TRANEXAMIC ACID 1,000 MG **IV Pre-op IV SCH (18:05)
--- NOTE | 2021-02-04 18:31 | Operative Report ---
Post Operative Report Pre & Post Diagnosis Operation Date: 02/04/21 11:35 Pre-Op Diagnosis: Post operative infection of left knee Post-Op Diagnosis: Post operative infection of left knee Operation Date: 02/04/21 16:30 <No data on this case meets the specified criteria> I identified the patient and participated in the time-out.: Yes Procedure Operation Date: 02/04/21 11:35 Actual Procedures p Left Knee Incision and Drainage Left knee surgical incision and knee joint(Left) - Severo Latif MD Operation Date: 02/04/21 16:30 Actual Procedures p Incision and Drainage Extremity(Left) - Severo Latif MD Surgeon Severo Latif MD [employer] Worker Fitter [place] Estimated Blood Loss 25 Findings Consistent with Post-Op Diagnosis Specimens Culture from the knee joint Gram stain cell count and crystals. A second culture from the left knee surgical incision Drains Hemovac x2 in the knee joint and x2 from the surgical incision Anesthesia Type General Regional Complications none Disposition Accompanied Patient To Recovery: No Disposition: Recovery Room Indications Patient is 85. She is 1 month status post ORIF of a left knee medial tibial plateau fracture with Dr. Hilliard off. She has had some progressive swelling redness and pain involving the left knee surgical incision. She had a fall actually came in today to the ER. The evaluation is consistent with a hematoma and probably a postoperative infection. She was consented for surgery. Prior to leaving the ER the wound spontaneously erupted and drained a large amount of purulent material. Description of Procedure Informed consent obtained. Patient identified. She identified the operative site as the left knee. I marked with my initials. Preoperative surgical timeout was performed. A preop dose of IV antibiotics was given. She was taken to the operating room positioned supine on the OR table. A tourniquet was applied to the left thigh but not inflated. DVT prophylaxis with mechanical devices. Postoperatively she will use mechanical devices and Lovenox. There was active drainage from the bottom of the surgical incision of bloody purulent material. The leg was prescrubbed with Betadine and then prepped and draped with Betadine in the usual sterile fashion. Prior to prepping and draping it was noted that she had a left knee effusion but really not a lot of redness around the knee. I aspirated the knee and returned 30 cc of pus. At this point arthrotomy and washout of the knee is indicated. I opened the original surgical incisionProximal anteromedial tibia with the scalpel and immediately encountered the plate. The pes repair had come undone and was located posterior medially. The Vicryl sutures in place there were removed. I then used a rongeur to debride the entire cavity which 1 somewhat posterior medial around the tibia and anterior to the tibial tubercle area. The fibrinous exudate and any unhealthy appearing tissue and granulation tissue was debrided. Meticulous hemostasis performed. The plate was scrubbed with a sterile brush and sterile Betadine x3. Attention was then turned to the knee joint I extended the incision proximally and zigzag it to a midline incision. I then made a medial arthrotomy and immediately encountered a large amount of purulent material. Rongeur was utilized to debride synovitis. The articular cartilage of the trochlea and patella looked relatively normal. Bulb syringe irrigation was utilized down into the notch and gutters and then irrigation with pulse lavage saline was performed x2 3 L bags flushing out the back of the knee and put putting the knee through range of motion. Likewise prior to this 2 bags of sterile saline was used to irrigate out the lower leg incision. I then inserted 2 drains into each area. The knee drains exited laterally and the incision drains exited distally. Then went ahead and closed the arthrotomy using interrupted #1 PDS sutures. Stimulant beads containing gentamicin and vancomycin were then placed along the plate and incisional cavity. The skin was then closed with near far far near #1 nylons and 2-0 nylon's. The skin was anesthetized with local anesthesia. The leg was cleaned wet and dry sponges and a bulky soft sterile dressing applied Xeroform 4 x 4's ABD full-length Doe wrap soft wrap and a knee immobilizer. Patient awakened from anesthesia without difficulty taken to the recovery room in stable condition. The fluid aspirated from the knee joint was sent for crystal analysis Gram stain aerobic and anaerobic culture plus cell count with differential. The swab culture from the left knee incision was sent for Gram stain aerobic and anaerobic culture. Counts were correct and blood loss is estimated to be 25 cc. At the conclusion of the operation spoke the patient's family informed of my findings and discussed the postoperative plan. She will be started on Lovenox for DVT prophylaxis. She will be admitted to the medicine service. The drains will stay in for 24 to 48 hours. Cultures will be followed up to taper antibiotics. Will likely need an infectious disease consult. She will be nonweightbearing because of her tibial plateau fracture. I attest to the content of the Intraoperative Record and any orders documented therein. Any exceptions are noted below.
--- NOTE | 2021-02-04 18:52 | Operative Report ---
Post Operative Report Pre & Post Diagnosis Operation Date: 02/04/21 11:35 Pre-Op Diagnosis: Post operative infection of left knee Post-Op Diagnosis: Post operative infection of left knee Operation Date: 02/04/21 16:30 <No data on this case meets the specified criteria> I identified the patient and participated in the time-out.: Yes Procedure Operation Date: 02/04/21 11:35 Actual Procedures p Left Knee Incision and Drainage(Left) - Severo Latif MD Operation Date: 02/04/21 16:30 Actual Procedures p Incision and Drainage Extremity(Left) - Severo Latif MD Surgeon Severo Latif M.D. [employer] Architect [place] PA-C; no fellow or resident available Estimated Blood Loss 25 Findings Consistent with Post-Op Diagnosis left knee infection retained hardware Specimens left knee joint cultures left knee wound cultures Drains Hemovac x 4 Anesthesia Type General Regional Description of Procedure Patient was taken to the operating room, placed under general anesthesia, time out performed, given IV zosyn and IV vancomycin pre-operatively. I was present during the entire case, please see Dr. Latif's operative report for further detail. I assisted with positioning, incision, irrigation, debridement, tissue retraction, closure and dressings. Patient was awakened and taken to the recovery room in stable condition. I attest to the content of the Intraoperative Record and any orders documented therein. Any exceptions are noted below.
[2021-02-04] MEDS ORDERED: METOPROLOL TARTRATE 1 MG/ML VIAL IV STA ×2 (18:58→19:24)
[2021-02-04] MEDS ORDERED: METOPROLOL TARTRATE 1 MG/ML VIAL IV ONE (18:59)
[2021-02-04] MEDS: fentaNYL citrate 100 MCG/2 ML VIAL IV PRN ×2 (19:07→19:44)
[2021-02-04 19:16] LABS: Appearance Synovial Fluid CLOUDY; Color Synovial Fluid PALE YELLOW; Mononuclear WBC Synovial 4.6 %; Polynuclear WBC Synovial 95.4 %; RBC Synovial Fluid (A) 68000 /uL; Source Synovial Fluid KNEE; WBC Synovial Fluid (A) 238120 /ul (0-200)
[2021-02-04] MEDS ORDERED: HALOPERIDOL LACTATE 5 MG/ML 1 ML VIAL IV STA (20:04)
[2021-02-04] MEDS ORDERED: HALOPERIDOL LACTATE 5 MG/ML 1 ML VIAL ONE (20:08)
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
[2021-02-04] MEDS ORDERED: PHENYLEPHRINE 100MCG/ML 5ML SYR IV ONE (20:34)
[2021-02-04] MEDS ORDERED: ALBUMIN HUMAN 5% 12.5 GM/250 ML VIAL IV ONE (20:42)
[2021-02-04] MEDS ORDERED: ALBUMIN 5% 250 ML IV ONE (20:46)
[2021-02-04] MEDS ORDERED: PATIENT'S ALLERGY INFO NEEDS ENTERED SCH (21:45)
[2021-02-04] MEDS ORDERED: NALOXONE HCL 0.4 MG/1 ML VIAL/CARP IV PRN (21:48)
[2021-02-04] MEDS ORDERED: METOCLOPRAMIDE HCL INJ 5 MG/ML 2 ML VIAL IV PRN (21:48)
[2021-02-04] MEDS ORDERED: NON-FORMULARY MEDICATION (Melatonin 5 mg Tablet) PO PRN (21:48)
[2021-02-04] MEDS ORDERED: bisacodyL 10 MG SUPP PR PRN (21:48)
[2021-02-04] MEDS ORDERED: METOPROLOL TARTRATE 1 MG/ML VIAL IV PRN (21:48)
[2021-02-04] MEDS ORDERED: SODIUM CHLORIDE 0.9% 1000ML 1,000 ML IV SCH ×2 (21:48)
[2021-02-04] MEDS ORDERED: MAGNESIUM HYDROXIDE SUSP 30 ML UDC PO PRN (21:48)
[2021-02-04] MEDS: clonazePAM 0.5 MG TAB PO SCH (22:27)
[2021-02-04] MEDS: DOCUSATE SODIUM 100 MG CAP PO SCH (22:45)
[2021-02-04] MEDS: PANTOprazole 40 MG TAB PO SCH (22:45)
[2021-02-04] MEDS: PIPERACILLIN/TAZOBACTAM 3.375 GM in DEXTROSE 5% 100 ML IV SCH (22:45)
[2021-02-04] MEDS: SERTRALINE HCL 100 MG TABLET PO SCH (22:46)
[2021-02-04] MEDS: HEPARIN SOD 5,000 UNIT/0.5 ML VIAL SQ SCH (22:46)
[2021-02-04] MEDS: SENNA 8.6 MG TAB PO SCH (22:46)
[2021-02-05] MEDS: oxyCODONE HCL IR 5 MG TAB (IMMEDIATE RELEASE) PO PRN ×2 (02:24→21:55)
[2021-02-05] MEDS: PIPERACILLIN/TAZOBACTAM 3.375 GM in DEXTROSE 5% 100 ML IV SCH ×2 (05:54→18:08)
[2021-02-05] MEDS: LEVOTHYROXINE SODIUM 125 MCG TABLET PO SCH (05:54)
[2021-02-05 06:55] LABS: Hematocrit (blood only) 23.3 % (37-47); Hemoglobin 7.6 g/dL (12.0-16.0); Mean Corpuscular Hemoglobin 27.6 pg (25-34); Mean Corpuscular Hgb Conc 32.6 g/dL (32-36); Mean Corpuscular Volume 84.7 fL (80-100); Mean Platelet Volume 8.8 fL (7.4-10.4); Platelet Count 461 K/uL (130-400); RDW Coefficient of Variation 14.2 % (11.5-14.5); RDW Standard Deviation 43.9 fL (36.4-46.3); Red Blood Count 2.75 M/uL (4.2-5.4); White Blood Count 14.94 K/uL (4.8-10.8)
[2021-02-05 07:06] LABS: BUN Creatinine Ratio 31.3 (10-20); Calcium 8.5 mg/dl (8.5-10.1); Creatinine Clr Calc Pharmacy 37.8 ml/min; Est GFR (African American) 47.9 ml/min; Est GFR (Non-African American) 41.3 ml/min; Potassium 3.3 mmol/L (3.5-5.1)
[2021-02-05] MEDS: PANTOprazole 40 MG TAB PO SCH ×2 (07:56→21:55)
[2021-02-05] MEDS: DOCUSATE SODIUM 100 MG CAP PO SCH ×2 (07:57→21:55)
[2021-02-05] MEDS: ATENOLOL 25 MG TABLET PO SCH (07:58)
[2021-02-05] MEDS ORDERED: POTASSIUM CHLORIDE CRTAB 20 MEQ TABCR PO STA (08:31)
[2021-02-05 09:08] LABS: Hematocrit (blood only) 23.6 % (37-47); Hemoglobin 7.6 g/dL (12.0-16.0)
--- NOTE | 2021-02-05 09:16 | Orthopedic Progress Note ---
Date of Service February 05, 2021 Assessment & Plan (1) Post-operative infection: Plan: POD 1 - s/p I&D left knee joint and post-operative wound with Dr. Latif Regular diet as ordered PT/OT as ordered NWB left lower extremity Continue knee immobilizer at all times; no knee ROM until hemovac drains are removed; most likely POD2 Ice to left knee PRN pain/swelling Elevate left leg on pillows for swelling. Use walker to assist with gait/transfers Lovenox for DVT prophylaxis. Continue IV vanco and IV zosyn for now - blood cultures positive, wound and joint cultures pending. Synovial fluid cell count >238,000 Will continue to follow - will plan for dressing change left leg tomorrow Most likely will need custodial IV antibiotics. Will discuss today's findings with Dr. Latif Will continue to follow. H/H low - will leave transfusion decision up to primary hospitalist service. Admission and Anticipated Discharge Date Admission Date: February 04, 2021 Subjective Patient resting in bed, sleepy today but does opens her eyes to talk with me. She states that she doesn't have a lot of pain right now. She states that she feels better today than yesterday, was able to eat a little bit of breakfast. Physical Exam Musculoskeletal: Left leg dressings clean, dry and intact. Hemovacs in place, functioning. Knee immobilizer in place, readjusted. Able to flex and extend ankle and toes without discomfort. Foot is warm, cap refill brisk, strength at ankle and toes 5/5. Results & Data ([facility]) Vital Signs (Past 12 Hours) Vital Signs Temp Pulse Pulse Pulse Resp BP Pulse Ox 02/05/21 07:21 87 02/05/21 07:20 37.2 C 90 20 103/65 93 02/04/21 23:39 37.2 C 78 20 102/63 90 02/04/21 23:08 82 02/04/21 22:13 37.6 C H 87 16 99/61 L 90 02/04/21 21:48 125 H 02/04/21 21:43 37.7 C H 85 16 95/59 L 90 02/04/21 21:28 37.4 C 127 H 14 95/60 L 83 L Laboratory Results Microbiology 02/04/21 14:52 Aerobic Blood Culture - Preliminary Blood Gram positive cocci clusters 02/04/21 14:00 Aerobic Blood Culture - Preliminary Blood Gram positive cocci clusters Anaerobic Blood Culture - Preliminary Gram positive cocci clusters Left knee joint and left leg wound cultures pending. 02/05/21 02/05/21 02/05/21 Range/Units 08:45 08:45 05:54 WBC 14.94 H (4.8-10.8) K/uL RBC 2.75 L (4.2-5.4) M/uL Hgb 7.6 L 7.6 L (12.0-16.0) g/dL Hct 23.6 L 23.3 L (37-47) % MCV 84.7 (80-100) fL MCH 27.6 (25-34) pg MCHC 32.6 (32-36) g/dL RDW Std Deviation 43.9 (36.4-46.3) fL RDW Coeff of Brandan 14.2 (11.5-14.5) % Plt Count 461 H (130-400) K/uL MPV 8.8 (7.4-10.4) fL Immature Gran % (Auto) % Neut % (Auto) % Lymph % (Auto) % Desha % (Auto) % Eos % (Auto) % Baso % (Auto) % Neut # (Auto) (1.4-6.5) K/uL Lymph # (Auto) (1.2-3.4) K/uL Desha # (Auto) (0.11-0.59) K/uL Eos # (Auto) (0-0.5) K/uL Baso # (Auto) (0-0.2) K/uL Immature Gran # (Auto) (0.00-0.02) K/uL ESR (0-30) mm/hr PT (9.0-12.0) Seconds INR (0.9-1.1) APTT (21.0-31.0) Seconds PTT Ratio Sodium (136-145) mmol/L Potassium (3.5-5.1) mmol/L Chloride (98-107) mmol/L Carbon Dioxide (21-32) mmol/L Anion Gap (3-11) BUN (7-18) mg/dl Creatinine (0.6-1.2) mg/dl Est Cr Clr Drug Dosing ml/min Est GFR ( Amer) ml/min Est GFR (Non-Af Amer) ml/min BUN/Creatinine Ratio (10-20) Glucose (70-99) mg/dl Lactate (0.4-2.0) mmol/L Calcium (8.5-10.1) mg/dl Phosphorus Pending Magnesium Pending Total Bilirubin (0.2-1) mg/dl AST (15-37) U/L ALT (12-78) U/L Alkaline Phosphatase (45-117) U/L Total Creatine Kinase (26-192) U/L Troponin I (0-0.045) ng/ml C-Reactive Protein (0-0.29) mg/dl Total Protein (6.4-8.2) gm/dl Albumin (3.4-5.0) gm/dl Globulin (2.5-4.0) gm/dl Albumin/Globulin Ratio (0.9-2) Procalcitonin (0-0.5) ng/ml Fluid Comment Synovial Source Synovial Color Synovial Appearance Synovial WBC (0-200) /ul Synovial RBC /uL Synovial Polynuclear % % Synovial Mononuclear % % Synovial Crystals COVID-19 Eval Order SARS-CoV-2 (PCR) (Negative) Bld Cult Staph aureus PCR (Negative) Blood Culture MRSA PCR (Negative) 02/05/21 02/04/21 02/04/21 Range/Units 05:54 23:35 21:59 WBC (4.8-10.8) K/uL RBC (4.2-5.4) M/uL Hgb (12.0-16.0) g/dL Hct (37-47) % MCV (80-100) fL MCH (25-34) pg MCHC (32-36) g/dL RDW Std Deviation (36.4-46.3) fL RDW Coeff of Brandan (11.5-14.5) % Plt Count (130-400) K/uL MPV (7.4-10.4) fL Immature Gran % (Auto) % Neut % (Auto) % Lymph % (Auto) % Desha % (Auto) % Eos % (Auto) % Baso % (Auto) % Neut # (Auto) (1.4-6.5) K/uL Lymph # (Auto) (1.2-3.4) K/uL Desha # (Auto) (0.11-0.59) K/uL Eos # (Auto) (0-0.5) K/uL Baso # (Auto) (0-0.2) K/uL Immature Gran # (Auto) (0.00-0.02) K/uL ESR (0-30) mm/hr PT (9.0-12.0) Seconds INR (0.9-1.1) APTT (21.0-31.0) Seconds PTT Ratio Sodium 135 L (136-145) mmol/L Potassium 3.3 L (3.5-5.1) mmol/L Chloride 105 (98-107) mmol/L Carbon Dioxide 23 (21-32) mmol/L Anion Gap 7.0 (3-11) BUN 38 H (7-18) mg/dl Creatinine 1.21 H D (0.6-1.2) mg/dl Est Cr Clr Drug Dosing 37.8 ml/min Est GFR ( Amer) 47.9 ml/min Est GFR (Non-Af Amer) 41.3 ml/min BUN/Creatinine Ratio 31.3 H (10-20) Glucose 106 H (70-99) mg/dl Lactate 1.4 2.4 H* (0.4-2.0) mmol/L Calcium 8.5 (8.5-10.1) mg/dl Phosphorus Magnesium Total Bilirubin (0.2-1) mg/dl AST (15-37) U/L ALT (12-78) U/L Alkaline Phosphatase (45-117) U/L Total Creatine Kinase (26-192) U/L Troponin I (0-0.045) ng/ml C-Reactive Protein (0-0.29) mg/dl Total Protein (6.4-8.2) gm/dl Albumin (3.4-5.0) gm/dl Globulin (2.5-4.0) gm/dl Albumin/Globulin Ratio (0.9-2) Procalcitonin (0-0.5) ng/ml Fluid Comment Synovial Source Synovial Color Synovial Appearance Synovial WBC (0-200) /ul Synovial RBC /uL Synovial Polynuclear % % Synovial Mononuclear % % Synovial Crystals COVID-19 Eval Order SARS-CoV-2 (PCR) (Negative) Bld Cult Staph aureus PCR (Negative) Blood Culture MRSA PCR (Negative) 02/04/21 02/04/21 02/04/21 Range/Units 17:26 17:26 15:00 WBC (4.8-10.8) K/uL RBC (4.2-5.4) M/uL Hgb (12.0-16.0) g/dL Hct (37-47) % MCV (80-100) fL MCH (25-34) pg MCHC (32-36) g/dL RDW Std Deviation (36.4-46.3) fL RDW Coeff of Brandan (11.5-14.5) % Plt Count (130-400) K/uL MPV (7.4-10.4) fL Immature Gran % (Auto) % Neut % (Auto) % Lymph % (Auto) % Desha % (Auto) % Eos % (Auto) % Baso % (Auto) % Neut # (Auto) (1.4-6.5) K/uL Lymph # (Auto) (1.2-3.4) K/uL Desha # (Auto) (0.11-0.59) K/uL Eos # (Auto) (0-0.5) K/uL Baso # (Auto) (0-0.2) K/uL Immature Gran # (Auto) (0.00-0.02) K/uL ESR (0-30) mm/hr PT (9.0-12.0) Seconds INR (0.9-1.1) APTT (21.0-31.0) Seconds PTT Ratio Sodium (136-145) mmol/L Potassium (3.5-5.1) mmol/L Chloride (98-107) mmol/L Carbon Dioxide (21-32) mmol/L Anion Gap (3-11) BUN (7-18) mg/dl Creatinine (0.6-1.2) mg/dl Est Cr Clr Drug Dosing ml/min Est GFR ( Amer) ml/min Est GFR (Non-Af Amer) ml/min BUN/Creatinine Ratio (10-20) Glucose (70-99) mg/dl Lactate 2.4 H* (0.4-2.0) mmol/L Calcium (8.5-10.1) mg/dl Phosphorus Magnesium Total Bilirubin (0.2-1) mg/dl AST (15-37) U/L ALT (12-78) U/L Alkaline Phosphatase (45-117) U/L Total Creatine Kinase (26-192) U/L Troponin I (0-0.045) ng/ml C-Reactive Protein (0-0.29) mg/dl Total Protein (6.4-8.2) gm/dl Albumin (3.4-5.0) gm/dl Globulin (2.5-4.0) gm/dl Albumin/Globulin Ratio (0.9-2) Procalcitonin (0-0.5) ng/ml Fluid Comment Synovial Source KNEE Synovial Color PALE YELLOW Synovial Appearance CLOUDY Synovial WBC 471029 H (0-200) /ul Synovial RBC 25467 /uL Synovial Polynuclear % 95.4 % Synovial Mononuclear % 4.6 % Synovial Crystals COVID-19 Eval Order SARS-CoV-2 (PCR) (Negative) Bld Cult Staph aureus PCR (Negative) Blood Culture MRSA PCR (Negative) 02/04/21 02/04/21 02/04/21 Range/Units 14:03 14:03 14:00 WBC (4.8-10.8) K/uL RBC (4.2-5.4) M/uL Hgb (12.0-16.0) g/dL Hct (37-47) % MCV (80-100) fL MCH (25-34) pg MCHC (32-36) g/dL RDW Std Deviation (36.4-46.3) fL RDW Coeff of Brandan (11.5-14.5) % Plt Count (130-400) K/uL MPV (7.4-10.4) fL Immature Gran % (Auto) % Neut % (Auto) % Lymph % (Auto) % Desha % (Auto) % Eos % (Auto) % Baso % (Auto) % Neut # (Auto) (1.4-6.5) K/uL Lymph # (Auto) (1.2-3.4) K/uL Desha # (Auto) (0.11-0.59) K/uL Eos # (Auto) (0-0.5) K/uL Baso # (Auto) (0-0.2) K/uL Immature Gran # (Auto) (0.00-0.02) K/uL ESR (0-30) mm/hr PT (9.0-12.0) Seconds INR (0.9-1.1) APTT (21.0-31.0) Seconds PTT Ratio Sodium (136-145) mmol/L Potassium (3.5-5.1) mmol/L Chloride (98-107) mmol/L Carbon Dioxide (21-32) mmol/L Anion Gap (3-11) BUN (7-18) mg/dl Creatinine (0.6-1.2) mg/dl Est Cr Clr Drug Dosing ml/min Est GFR ( Amer) ml/min Est GFR (Non-Af Amer) ml/min BUN/Creatinine Ratio (10-20) Glucose (70-99) mg/dl Lactate (0.4-2.0) mmol/L Calcium (8.5-10.1) mg/dl Phosphorus Magnesium Total Bilirubin (0.2-1) mg/dl AST (15-37) U/L ALT (12-78) U/L Alkaline Phosphatase (45-117) U/L Total Creatine Kinase (26-192) U/L Troponin I (0-0.045) ng/ml C-Reactive Protein (0-0.29) mg/dl Total Protein (6.4-8.2) gm/dl Albumin (3.4-5.0) gm/dl Globulin (2.5-4.0) gm/dl Albumin/Globulin Ratio (0.9-2) Procalcitonin (0-0.5) ng/ml Fluid Comment Synovial Source Synovial Color Synovial Appearance Synovial WBC (0-200) /ul Synovial RBC /uL Synovial Polynuclear % % Synovial Mononuclear % % Synovial Crystals COVID-[address] Eval [address] Covid19 at [facility] SARS-CoV-2 (PCR) NEGATIVE (Negative) Bld Cult Staph aureus PCR Positive A (Negative) Blood Culture MRSA PCR Negative (Negative) 02/04/21 02/04/21 02/04/21 Range/Units 14:00 14:00 14:00 WBC (4.8-10.8) K/uL RBC (4.2-5.4) M/uL Hgb (12.0-16.0) g/dL Hct (37-47) % MCV (80-100) fL MCH (25-34) pg MCHC (32-36) g/dL RDW Std Deviation (36.4-46.3) fL RDW Coeff of Brandan (11.5-14.5) % Plt Count (130-400) K/uL MPV (7.4-10.4) fL Immature Gran % (Auto) % Neut % (Auto) % Lymph % (Auto) % Desha % (Auto) % Eos % (Auto) % Baso % (Auto) % Neut # (Auto) (1.4-6.5) K/uL Lymph # (Auto) (1.2-3.4) K/uL Desha # (Auto) (0.11-0.59) K/uL Eos # (Auto) (0-0.5) K/uL Baso # (Auto) (0-0.2) K/uL Immature Gran # (Auto) (0.00-0.02) K/uL ESR 87 H (0-30) mm/hr PT (9.0-12.0) Seconds INR (0.9-1.1) APTT (21.0-31.0) Seconds PTT Ratio Sodium (136-145) mmol/L Potassium (3.5-5.1) mmol/L Chloride (98-107) mmol/L Carbon Dioxide (21-32) mmol/L Anion Gap (3-11) BUN (7-18) mg/dl Creatinine (0.6-1.2) mg/dl Est Cr Clr Drug Dosing ml/min Est GFR ( Amer) ml/min Est GFR (Non-Af Amer) ml/min BUN/Creatinine Ratio (10-20) Glucose (70-99) mg/dl Lactate (0.4-2.0) mmol/L Calcium (8.5-10.1) mg/dl Phosphorus Magnesium Total Bilirubin (0.2-1) mg/dl AST (15-37) U/L ALT (12-78) U/L Alkaline Phosphatase (45-117) U/L Total Creatine Kinase (26-192) U/L Troponin I (0-0.045) ng/ml C-Reactive Protein 41.90 H (0-0.29) mg/dl Total Protein (6.4-8.2) gm/dl Albumin (3.4-5.0) gm/dl Globulin (2.5-4.0) gm/dl Albumin/Globulin Ratio (0.9-2) Procalcitonin 3.20 H (0-0.5) ng/ml Fluid Comment Synovial Source Synovial Color Synovial Appearance Synovial WBC (0-200) /ul Synovial RBC /uL Synovial Polynuclear % % Synovial Mononuclear % % Synovial Crystals COVID-19 Eval Order SARS-CoV-2 (PCR) (Negative) Bld Cult Staph aureus PCR (Negative) Blood Culture MRSA PCR (Negative) 02/04/21 02/04/21 02/04/21 Range/Units 14:00 13:03 13:03 WBC 20.25 H (4.8-10.8) K/uL RBC 3.79 L (4.2-5.4) M/uL Hgb 10.5 L (12.0-16.0) g/dL Hct 32.1 L (37-47) % MCV 84.7 (80-100) fL MCH 27.7 (25-34) pg MCHC 32.7 (32-36) g/dL RDW Std Deviation 42.4 (36.4-46.3) fL RDW Coeff of Brandan 13.8 (11.5-14.5) % Plt Count 546 H (130-400) K/uL MPV 8.8 (7.4-10.4) fL Immature Gran % (Auto) 0.4 % Neut % (Auto) 90.2 % Lymph % (Auto) 2.2 % Desha % (Auto) 7.1 % Eos % (Auto) 0.0 % Baso % (Auto) 0.1 % Neut # (Auto) 18.25 H (1.4-6.5) K/uL Lymph # (Auto) 0.44 L (1.2-3.4) K/uL Desha # (Auto) 1.44 H (0.11-0.59) K/uL Eos # (Auto) 0.01 (0-0.5) K/uL Baso # (Auto) 0.02 (0-0.2) K/uL Immature Gran # (Auto) 0.09 H (0.00-0.02) K/uL ESR (0-30) mm/hr PT 11.0 (9.0-12.0) Seconds INR 1.1 (0.9-1.1) APTT 27.9 (21.0-31.0) Seconds PTT Ratio 1.1 Sodium 134 L (136-145) mmol/L Potassium 3.7 (3.5-5.1) mmol/L Chloride 101 (98-107) mmol/L Carbon Dioxide 24 (21-32) mmol/L Anion Gap 10.0 (3-11) BUN 42 H (7-18) mg/dl Creatinine 1.74 H (0.6-1.2) mg/dl Est Cr Clr Drug Dosing 26.3 ml/min Est GFR ( Amer) 30.9 ml/min Est GFR (Non-Af Amer) 26.6 ml/min BUN/Creatinine Ratio 24.1 H (10-20) Glucose 119 H (70-99) mg/dl Lactate (0.4-2.0) mmol/L Calcium 9.6 (8.5-10.1) mg/dl Phosphorus Magnesium Total Bilirubin 0.6 (0.2-1) mg/dl AST 14 L (15-37) U/L ALT 13 (12-78) U/L Alkaline Phosphatase 151 H (45-117) U/L Total Creatine Kinase 46 (26-192) U/L Troponin I < 0.015 (0-0.045) ng/ml C-Reactive Protein (0-0.29) mg/dl Total Protein 6.9 (6.4-8.2) gm/dl Albumin 2.5 L (3.4-5.0) gm/dl Globulin 4.4 H (2.5-4.0) gm/dl Albumin/Globulin Ratio 0.6 L (0.9-2) Procalcitonin (0-0.5) ng/ml Fluid Comment Synovial Source Synovial Color Synovial Appearance Synovial WBC (0-200) /ul Synovial RBC /uL Synovial Polynuclear % % Synovial Mononuclear % % Synovial Crystals COVID-19 Eval Order SARS-CoV-2 (PCR) (Negative) Bld Cult Staph aureus PCR (Negative) Blood Culture MRSA PCR (Negative) (1) Post-operative infection Encounter type: initial encounter Postoperative infection type: unspecified type Qualified Code(s): T81.40XA - Infection following a procedure, unspecified, initial encounter
[2021-02-05 09:27] LABS: Magnesium 2.1 mg/dl (1.8-2.4); Phosphorus 4.4 mg/dl (2.5-4.9)
[2021-02-05] MEDS ORDERED: SODIUM CHLORIDE 0.9% 250 ML IV PRN (09:35)
--- NOTE | 2021-02-05 10:04 | Hospitalist Progress Note ---
Date of Service February 05, 2021 Assessment & Plan (1) Sepsis: (2) Infection: (3) Fall: (4) Acute kidney injury superimposed on chronic kidney disease: (5) PSVT (paroxysmal supraventricular tachycardia): (6) HTN (hypertension): (7) Hypothyroidism: (8) HLD (hyperlipidemia): (9) MERY (obstructive sleep apnea): Plan: Gram-positive bacteremia Septic joint This is an 85yo F with a PMH of hypertension, hyperlipidemia, CKD III, hypothyroidism and MERY not on CPAP who presents to the ED with worsening left lower extremity pain x4 days. Sepsis 2/2 left lower extremity infection in post-operative setting One month post-op s/p ORIF of left tibial plateau fracture by Dr. Smith Semmes well initially but developed worsening pain, redness and swelling to the area over the past week. Was seen at ortho follow up and underwent venous doppler of LLE that was negative for DVT Afebrile, HR 92, WBC 20.25, plt 546, ESR 87, CRP 41.90, procalcitonin 3.20, lactate 2.4 - repeat lactate ordered Evaluated by Dr. Latif in ER - taken for emergent washout of wound (02/04) Patient tolerated procedure well, drainage and pus noted during procedure Joint aspiration, synovial fluid WBC > 238,000 Blood culture, February 04, positive for gram-positive cocci in clusters S/p left knee I&D, hemovac applied Started on empiric IV Vanco and Zosyn pre-op - will continue IV Dapto and Zosyn Pharmacy and ID consulted, plan for daptomycin dose 500 IV daily for now Per ortho: PT/OT as ordered NWB left lower extremity Continue knee immobilizer at all times; no knee ROM until hemovac drains are removed; most likely POD2 Ice to left knee PRN pain/swelling Elevate left leg on pillows for swelling. Use walker to assist with gait/transfers Lovenox for DVT prophylaxis. Will continue to follow - will plan for dressing change left leg tomorrow Most likely will need longterm IV antibiotics. Follow wound culture, synovial fluid, blood culture Pain control, IV fluids, continued ortho care Fall at home In setting of LLE infection Fall precautions, PT/OT evaluation Patient lives at home with elderly Acute kidney injury superimposed on CKD III Cr elevated at 1.7, baseline ~ 1 currently improved at 1.2 In setting of sepsis, poor PO intake Continue IV fluids Daily BMP Acute blood loss anemia/status post fall and postoperative Current hemoglobin 7.6, 1 unit of PRBCs ordered CT pelvis also ordered by the orthopedics, pending Continue to closely monitor H&H Sanguinous drainage noted in Hemovac Hypertension Continue atenolol Holding losartan in setting of MOSES BP on lower side, cont. to monitor Paroxysmal SVT Monitor on tele, continue atenolol Hypothyroidism Continue levothyroxine Depression Continue sertraline DVT Ppx: SQ heparin Code status: FULL PCP: Dr. Roe Dispo: Admitted to [facility] tele. Discharge planning ordered. Admission and Anticipated Discharge Date Admission Date: February 04, 2021 Subjective Patient seen in follow-up of bacteremia, septic joint Underwent I&D of her left knee yesterday w/ ortho Currently resting in bed, in NAD, somnolent but easily arousable, and has no complaints at this time reports her left leg is feeling better today Denies any chest pain, shortness of breath, abdominal pain, nausea vomiting Hemoglobin dropped to 7.6, H&H stat repeated, the same value - ordered 1 unit of packed red blood cells CT pelvis ordered currently pending Review of Systems Review of Systems: All systems reviewed & are unremarkable except as noted in Subjective Physical Exam Physical Exam: General Appearance: elderly frail F lying in bed, in NAD, somnolent Head: normocephalic, atraumatic Eyes: normal inspection, PERRL, conjunctivae normal, anicteric sclerae ENT: external ear and nose normal, oropharynx normal Neck: normal visual inspection Respiratory: normal respiratory effort, lungs clear to auscultation, no wheeze, rales, rhonchi. No accessory muscle use Cardiovascular: regular rate, rhythm, no murmur, normal peripheral pulses Chest: normal inspection of chest Abdomen/GI: normal bowel sounds, soft, nontender, + bowel sounds Extremities/Musculoskeletal: LLE in sulma wraps, hemovac x2 with sanguinous drainage. no sensory loss noted, moves extremities and Neurologic: PERRL, EOMI, no face palsy, no dysarthria, moves all extremities Psychiatric: Somnolent but easily arousable, able to answer simple questions without difficulty Skin: no rashes, normal color, warm/dry Results & Data Results & Data (MN) Vital Signs (Past 12 Hours) Vital Signs Temp Pulse Pulse Pulse Resp BP Pulse Ox 02/05/21 07:21 87 02/05/21 07:20 37.2 C 90 20 103/65 93 02/04/21 23:39 37.2 C 78 20 102/63 90 02/04/21 23:08 82 02/04/21 22:13 37.6 C H 87 16 99/61 L 90 Laboratory Results 02/05/21 02/05/21 02/05/21 Range/Units 09:05 08:45 08:45 WBC (4.8-10.8) K/uL RBC (4.2-5.4) M/uL Hgb 7.6 L (12.0-16.0) g/dL Hct 23.6 L (37-47) % MCV (80-100) fL MCH (25-34) pg MCHC (32-36) g/dL RDW Std Deviation (36.4-46.3) fL RDW Coeff of Brandan (11.5-14.5) % Plt Count (130-400) K/uL MPV (7.4-10.4) fL Immature Gran % (Auto) % Neut % (Auto) % Lymph % (Auto) % Dare % (Auto) % Eos % (Auto) % Baso % (Auto) % Neut # (Auto) (1.4-6.5) K/uL Lymph # (Auto) (1.2-3.4) K/uL Dare # (Auto) (0.11-0.59) K/uL Eos # (Auto) (0-0.5) K/uL Baso # (Auto) (0-0.2) K/uL Immature Gran # (Auto) (0.00-0.02) K/uL ESR (0-30) mm/hr PT (9.0-12.0) Seconds INR (0.9-1.1) APTT (21.0-31.0) Seconds PTT Ratio Sodium (136-145) mmol/L Potassium (3.5-5.1) mmol/L Chloride (98-107) mmol/L Carbon Dioxide (21-32) mmol/L Anion Gap (3-11) BUN (7-18) mg/dl Creatinine (0.6-1.2) mg/dl Est Cr Clr Drug Dosing ml/min Est GFR ( Amer) ml/min Est GFR (Non-Af Amer) ml/min BUN/Creatinine Ratio (10-20) Glucose (70-99) mg/dl Lactate (0.4-2.0) mmol/L Calcium (8.5-10.1) mg/dl Phosphorus 4.4 (2.5-4.9) mg/dl Magnesium 2.1 (1.8-2.4) mg/dl Total Bilirubin (0.2-1) mg/dl AST (15-37) U/L ALT (12-78) U/L Alkaline Phosphatase (45-117) U/L Total Creatine Kinase (26-192) U/L Troponin I (0-0.045) ng/ml C-Reactive Protein (0-0.29) mg/dl Total Protein (6.4-8.2) gm/dl Albumin (3.4-5.0) gm/dl Globulin (2.5-4.0) gm/dl Albumin/Globulin Ratio (0.9-2) Procalcitonin (0-0.5) ng/ml Fluid Comment Synovial Source Synovial Color Synovial Appearance Synovial WBC (0-200) /ul Synovial RBC /uL Synovial Polynuclear % % Synovial Mononuclear % % Synovial Crystals COVID-19 Eval Order SARS-CoV-2 (PCR) (Negative) Bld Cult Staph aureus PCR (Negative) Blood Culture MRSA PCR (Negative) Blood Type Pending Antibody Screen Pending Crossmatch See Detail 02/05/21 02/05/21 02/04/21 Range/Units 05:54 05:54 23:35 WBC 14.94 H (4.8-10.8) K/uL RBC 2.75 L (4.2-5.4) M/uL Hgb 7.6 L (12.0-16.0) g/dL Hct 23.3 L (37-47) % MCV 84.7 (80-100) fL MCH 27.6 (25-34) pg MCHC 32.6 (32-36) g/dL RDW Std Deviation 43.9 (36.4-46.3) fL RDW Coeff of Brandan 14.2 (11.5-14.5) % Plt Count 461 H (130-400) K/uL MPV 8.8 (7.4-10.4) fL Immature Gran % (Auto) % Neut % (Auto) % Lymph % (Auto) % Dare % (Auto) % Eos % (Auto) % Baso % (Auto) % Neut # (Auto) (1.4-6.5) K/uL Lymph # (Auto) (1.2-3.4) K/uL Dare # (Auto) (0.11-0.59) K/uL Eos # (Auto) (0-0.5) K/uL Baso # (Auto) (0-0.2) K/uL Immature Gran # (Auto) (0.00-0.02) K/uL ESR (0-30) mm/hr PT (9.0-12.0) Seconds INR (0.9-1.1) APTT (21.0-31.0) Seconds PTT Ratio Sodium 135 L (136-145) mmol/L Potassium 3.3 L (3.5-5.1) mmol/L Chloride 105 (98-107) mmol/L Carbon Dioxide 23 (21-32) mmol/L Anion Gap 7.0 (3-11) BUN 38 H (7-18) mg/dl Creatinine 1.21 H D (0.6-1.2) mg/dl Est Cr Clr Drug Dosing 37.8 ml/min Est GFR ( Amer) 47.9 ml/min Est GFR (Non-Af Amer) 41.3 ml/min BUN/Creatinine Ratio 31.3 H (10-20) Glucose 106 H (70-99) mg/dl Lactate 1.4 (0.4-2.0) mmol/L Calcium 8.5 (8.5-10.1) mg/dl Phosphorus (2.5-4.9) mg/dl Magnesium (1.8-2.4) mg/dl Total Bilirubin (0.2-1) mg/dl AST (15-37) U/L ALT (12-78) U/L Alkaline Phosphatase (45-117) U/L Total Creatine Kinase (26-192) U/L Troponin I (0-0.045) ng/ml C-Reactive Protein (0-0.29) mg/dl Total Protein (6.4-8.2) gm/dl Albumin (3.4-5.0) gm/dl Globulin (2.5-4.0) gm/dl Albumin/Globulin Ratio (0.9-2) Procalcitonin (0-0.5) ng/ml Fluid Comment Synovial Source Synovial Color Synovial Appearance Synovial WBC (0-200) /ul Synovial RBC /uL Synovial Polynuclear % % Synovial Mononuclear % % Synovial Crystals COVID-19 Eval Order SARS-CoV-2 (PCR) (Negative) Bld Cult Staph aureus PCR (Negative) Blood Culture MRSA PCR (Negative) Blood Type Antibody Screen Crossmatch 02/04/21 02/04/21 02/04/21 Range/Units 21:59 17:26 17:26 WBC (4.8-10.8) K/uL RBC (4.2-5.4) M/uL Hgb (12.0-16.0) g/dL Hct (37-47) % MCV (80-100) fL MCH (25-34) pg MCHC (32-36) g/dL RDW Std Deviation (36.4-46.3) fL RDW Coeff of Brandan (11.5-14.5) % Plt Count (130-400) K/uL MPV (7.4-10.4) fL Immature Gran % (Auto) % Neut % (Auto) % Lymph % (Auto) % Dare % (Auto) % Eos % (Auto) % Baso % (Auto) % Neut # (Auto) (1.4-6.5) K/uL Lymph # (Auto) (1.2-3.4) K/uL Dare # (Auto) (0.11-0.59) K/uL Eos # (Auto) (0-0.5) K/uL Baso # (Auto) (0-0.2) K/uL Immature Gran # (Auto) (0.00-0.02) K/uL ESR (0-30) mm/hr PT (9.0-12.0) Seconds INR (0.9-1.1) APTT (21.0-31.0) Seconds PTT Ratio Sodium (136-145) mmol/L Potassium (3.5-5.1) mmol/L Chloride (98-107) mmol/L Carbon Dioxide (21-32) mmol/L Anion Gap (3-11) BUN (7-18) mg/dl Creatinine (0.6-1.2) mg/dl Est Cr Clr Drug Dosing ml/min Est GFR ( Amer) ml/min Est GFR (Non-Af Amer) ml/min BUN/Creatinine Ratio (10-20) Glucose (70-99) mg/dl Lactate 2.4 H* (0.4-2.0) mmol/L Calcium (8.5-10.1) mg/dl Phosphorus (2.5-4.9) mg/dl Magnesium (1.8-2.4) mg/dl Total Bilirubin (0.2-1) mg/dl AST (15-37) U/L ALT (12-78) U/L Alkaline Phosphatase (45-117) U/L Total Creatine Kinase (26-192) U/L Troponin I (0-0.045) ng/ml C-Reactive Protein (0-0.29) mg/dl Total Protein (6.4-8.2) gm/dl Albumin (3.4-5.0) gm/dl Globulin (2.5-4.0) gm/dl Albumin/Globulin Ratio (0.9-2) Procalcitonin (0-0.5) ng/ml Fluid Comment Synovial Source KNEE Synovial Color PALE YELLOW Synovial Appearance CLOUDY Synovial WBC 817299 H (0-200) /ul Synovial RBC 93314 /uL Synovial Polynuclear % 95.4 % Synovial Mononuclear % 4.6 % Synovial Crystals COVID-19 Eval Order SARS-CoV-2 (PCR) (Negative) Bld Cult Staph aureus PCR (Negative) Blood Culture MRSA PCR (Negative) Blood Type Antibody Screen Crossmatch 02/04/21 02/04/21 02/04/21 Range/Units 15:00 14:03 14:03 WBC (4.8-10.8) K/uL RBC (4.2-5.4) M/uL Hgb (12.0-16.0) g/dL Hct (37-47) % MCV (80-100) fL MCH (25-34) pg MCHC (32-36) g/dL RDW Std Deviation (36.4-46.3) fL RDW Coeff of Brandan (11.5-14.5) % Plt Count (130-400) K/uL MPV (7.4-10.4) fL Immature Gran % (Auto) % Neut % (Auto) % Lymph % (Auto) % Dare % (Auto) % Eos % (Auto) % Baso % (Auto) % Neut # (Auto) (1.4-6.5) K/uL Lymph # (Auto) (1.2-3.4) K/uL Dare # (Auto) (0.11-0.59) K/uL Eos # (Auto) (0-0.5) K/uL Baso # (Auto) (0-0.2) K/uL Immature Gran # (Auto) (0.00-0.02) K/uL ESR (0-30) mm/hr PT (9.0-12.0) Seconds INR (0.9-1.1) APTT (21.0-31.0) Seconds PTT Ratio Sodium (136-145) mmol/L Potassium (3.5-5.1) mmol/L Chloride (98-107) mmol/L Carbon Dioxide (21-32) mmol/L Anion Gap (3-11) BUN (7-18) mg/dl Creatinine (0.6-1.2) mg/dl Est Cr Clr Drug Dosing ml/min Est GFR ( Amer) ml/min Est GFR (Non-Af Amer) ml/min BUN/Creatinine Ratio (10-20) Glucose (70-99) mg/dl Lactate 2.4 H* (0.4-2.0) mmol/L Calcium (8.5-10.1) mg/dl Phosphorus (2.5-4.9) mg/dl Magnesium (1.8-2.4) mg/dl Total Bilirubin (0.2-1) mg/dl AST (15-37) U/L ALT (12-78) U/L Alkaline Phosphatase (45-117) U/L Total Creatine Kinase (26-192) U/L Troponin I (0-0.045) ng/ml C-Reactive Protein (0-0.29) mg/dl Total Protein (6.4-8.2) gm/dl Albumin (3.4-5.0) gm/dl Globulin (2.5-4.0) gm/dl Albumin/Globulin Ratio (0.9-2) Procalcitonin (0-0.5) ng/ml Fluid Comment Synovial Source Synovial Color Synovial Appearance Synovial WBC (0-200) /ul Synovial RBC /uL Synovial Polynuclear % % Synovial Mononuclear % % Synovial Crystals COVID-19 Eval [address] Covid19 at [facility] SARS-CoV-2 (PCR) NEGATIVE (Negative) Bld Cult Staph aureus PCR (Negative) Blood Culture MRSA PCR (Negative) Blood Type Antibody Screen Crossmatch 02/04/21 02/04/21 02/04/21 Range/Units 14:00 14:00 14:00 WBC (4.8-10.8) K/uL RBC (4.2-5.4) M/uL Hgb (12.0-16.0) g/dL Hct (37-47) % MCV (80-100) fL MCH (25-34) pg MCHC (32-36) g/dL RDW Std Deviation (36.4-46.3) fL RDW Coeff of Brandan (11.5-14.5) % Plt Count (130-400) K/uL MPV (7.4-10.4) fL Immature Gran % (Auto) % Neut % (Auto) % Lymph % (Auto) % Dare % (Auto) % Eos % (Auto) % Baso % (Auto) % Neut # (Auto) (1.4-6.5) K/uL Lymph # (Auto) (1.2-3.4) K/uL Dare # (Auto) (0.11-0.59) K/uL Eos # (Auto) (0-0.5) K/uL Baso # (Auto) (0-0.2) K/uL Immature Gran # (Auto) (0.00-0.02) K/uL ESR (0-30) mm/hr PT (9.0-12.0) Seconds INR (0.9-1.1) APTT (21.0-31.0) Seconds PTT Ratio Sodium (136-145) mmol/L Potassium (3.5-5.1) mmol/L Chloride (98-107) mmol/L Carbon Dioxide (21-32) mmol/L Anion Gap (3-11) BUN (7-18) mg/dl Creatinine (0.6-1.2) mg/dl Est Cr Clr Drug Dosing ml/min Est GFR ( Amer) ml/min Est GFR (Non-Af Amer) ml/min BUN/Creatinine Ratio (10-20) Glucose (70-99) mg/dl Lactate (0.4-2.0) mmol/L Calcium (8.5-10.1) mg/dl Phosphorus (2.5-4.9) mg/dl Magnesium (1.8-2.4) mg/dl Total Bilirubin (0.2-1) mg/dl AST (15-37) U/L ALT (12-78) U/L Alkaline Phosphatase (45-117) U/L Total Creatine Kinase (26-192) U/L Troponin I (0-0.045) ng/ml C-Reactive Protein 41.90 H (0-0.29) mg/dl Total Protein (6.4-8.2) gm/dl Albumin (3.4-5.0) gm/dl Globulin (2.5-4.0) gm/dl Albumin/Globulin Ratio (0.9-2) Procalcitonin 3.20 H (0-0.5) ng/ml Fluid Comment Synovial Source Synovial Color Synovial Appearance Synovial WBC (0-200) /ul Synovial RBC /uL Synovial Polynuclear % % Synovial Mononuclear % % Synovial Crystals COVID-19 Eval Order SARS-CoV-2 (PCR) (Negative) Bld Cult Staph aureus PCR Positive A (Negative) Blood Culture MRSA PCR Negative (Negative) Blood Type Antibody Screen Crossmatch 02/04/21 02/04/21 02/04/21 Range/Units 14:00 14:00 13:03 WBC 20.25 H (4.8-10.8) K/uL RBC 3.79 L (4.2-5.4) M/uL Hgb 10.5 L (12.0-16.0) g/dL Hct 32.1 L (37-47) % MCV 84.7 (80-100) fL MCH 27.7 (25-34) pg MCHC 32.7 (32-36) g/dL RDW Std Deviation 42.4 (36.4-46.3) fL RDW Coeff of Brandan 13.8 (11.5-14.5) % Plt Count 546 H (130-400) K/uL MPV 8.8 (7.4-10.4) fL Immature Gran % (Auto) 0.4 % Neut % (Auto) 90.2 % Lymph % (Auto) 2.2 % Dare % (Auto) 7.1 % Eos % (Auto) 0.0 % Baso % (Auto) 0.1 % Neut # (Auto) 18.25 H (1.4-6.5) K/uL Lymph # (Auto) 0.44 L (1.2-3.4) K/uL Dare # (Auto) 1.44 H (0.11-0.59) K/uL Eos # (Auto) 0.01 (0-0.5) K/uL Baso # (Auto) 0.02 (0-0.2) K/uL Immature Gran # (Auto) 0.09 H (0.00-0.02) K/uL ESR 87 H (0-30) mm/hr PT (9.0-12.0) Seconds INR (0.9-1.1) APTT (21.0-31.0) Seconds PTT Ratio Sodium 134 L (136-145) mmol/L Potassium 3.7 (3.5-5.1) mmol/L Chloride 101 (98-107) mmol/L Carbon Dioxide 24 (21-32) mmol/L Anion Gap 10.0 (3-11) BUN 42 H (7-18) mg/dl Creatinine 1.74 H (0.6-1.2) mg/dl Est Cr Clr Drug Dosing 26.3 ml/min Est GFR ( Amer) 30.9 ml/min Est GFR (Non-Af Amer) 26.6 ml/min BUN/Creatinine Ratio 24.1 H (10-20) Glucose 119 H (70-99) mg/dl Lactate (0.4-2.0) mmol/L Calcium 9.6 (8.5-10.1) mg/dl Phosphorus (2.5-4.9) mg/dl Magnesium (1.8-2.4) mg/dl Total Bilirubin 0.6 (0.2-1) mg/dl AST 14 L (15-37) U/L ALT 13 (12-78) U/L Alkaline Phosphatase 151 H (45-117) U/L Total Creatine Kinase 46 (26-192) U/L Troponin I < 0.015 (0-0.045) ng/ml C-Reactive Protein (0-0.29) mg/dl Total Protein 6.9 (6.4-8.2) gm/dl Albumin 2.5 L (3.4-5.0) gm/dl Globulin 4.4 H (2.5-4.0) gm/dl Albumin/Globulin Ratio 0.6 L (0.9-2) Procalcitonin (0-0.5) ng/ml Fluid Comment Synovial Source Synovial Color Synovial Appearance Synovial WBC (0-200) /ul Synovial RBC /uL Synovial Polynuclear % % Synovial Mononuclear % % Synovial Crystals COVID-19 Eval Order SARS-CoV-2 (PCR) (Negative) Bld Cult Staph aureus PCR (Negative) Blood Culture MRSA PCR (Negative) Blood Type Antibody Screen Crossmatch 02/04/21 Range/Units 13:03 WBC (4.8-10.8) K/uL RBC (4.2-5.4) M/uL Hgb (12.0-16.0) g/dL Hct (37-47) % MCV (80-100) fL MCH (25-34) pg MCHC (32-36) g/dL RDW Std Deviation (36.4-46.3) fL RDW Coeff of Brandan (11.5-14.5) % Plt Count (130-400) K/uL MPV (7.4-10.4) fL Immature Gran % (Auto) % Neut % (Auto) % Lymph % (Auto) % Dare % (Auto) % Eos % (Auto) % Baso % (Auto) % Neut # (Auto) (1.4-6.5) K/uL Lymph # (Auto) (1.2-3.4) K/uL Dare # (Auto) (0.11-0.59) K/uL Eos # (Auto) (0-0.5) K/uL Baso # (Auto) (0-0.2) K/uL Immature Gran # (Auto) (0.00-0.02) K/uL ESR (0-30) mm/hr PT 11.0 (9.0-12.0) Seconds INR 1.1 (0.9-1.1) APTT 27.9 (21.0-31.0) Seconds PTT Ratio 1.1 Sodium (136-145) mmol/L Potassium (3.5-5.1) mmol/L Chloride (98-107) mmol/L Carbon Dioxide (21-32) mmol/L Anion Gap (3-11) BUN (7-18) mg/dl Creatinine (0.6-1.2) mg/dl Est Cr Clr Drug Dosing ml/min Est GFR ( Amer) ml/min Est GFR (Non-Af Amer) ml/min BUN/Creatinine Ratio (10-20) Glucose (70-99) mg/dl Lactate (0.4-2.0) mmol/L Calcium (8.5-10.1) mg/dl Phosphorus (2.5-4.9) mg/dl Magnesium (1.8-2.4) mg/dl Total Bilirubin (0.2-1) mg/dl AST (15-37) U/L ALT (12-78) U/L Alkaline Phosphatase (45-117) U/L Total Creatine Kinase (26-192) U/L Troponin I (0-0.045) ng/ml C-Reactive Protein (0-0.29) mg/dl Total Protein (6.4-8.2) gm/dl Albumin (3.4-5.0) gm/dl Globulin (2.5-4.0) gm/dl Albumin/Globulin Ratio (0.9-2) Procalcitonin (0-0.5) ng/ml Fluid Comment Synovial Source Synovial Color Synovial Appearance Synovial WBC (0-200) /ul Synovial RBC /uL Synovial Polynuclear % % Synovial Mononuclear % % Synovial Crystals COVID-19 Eval Order SARS-CoV-2 (PCR) (Negative) Bld Cult Staph aureus PCR (Negative) Blood Culture MRSA PCR (Negative) Blood Type Antibody Screen Crossmatch (1) Fall Encounter type: initial encounter Qualified Code(s): W19.XXXA - Unspecified fall, initial encounter
[2021-02-05] MEDS: HEPARIN SOD 5,000 UNIT/0.5 ML VIAL SQ SCH ×2 (10:05→21:56)
[2021-02-05] MEDS: LORazepam 0.5 MG TAB PO STA ×2 (11:47→12:10)
[2021-02-05] MEDS ORDERED: LORazepam 0.25 MG/0.5 ML VIAL IV PRN (12:26)
[2021-02-05] MEDS: HYDROmorphone INJ 0.5 MG/0.5 ML SYR IV PRN (12:40)
[2021-02-05] MEDS: DAPTOmycin 500 MG in SYRINGE 0 ML IV SCH (17:23)
[2021-02-05] MEDS ORDERED: ACETAMINOPHEN 1000 MG/100 ML IV IV PRN (18:18)
--- NOTE | 2021-02-05 18:51 | CT Scan Report ---
CT SCAN OF THE PELVIS WITHOUT IV CONTRAST CLINICAL HISTORY: Fall. Pelvic pain. Abnormal radiographs. COMPARISON STUDY: Pelvic radiographs dated 02/04/2021. TECHNIQUE: CT scan of the pelvis is performed from the pelvic inlet to the proximal femora. Images ar e reviewed in the axial, sagittal, and coronal planes. IV contrast was not administered for this exam ination. A dose lowering technique was utilized adhering to the principles of ALARA. CT DOSE: 989.30 mGy.cm FINDINGS: The skeletal structures are osteopenic. No fracture is identified involving the hips or bon y pelvis. There is no evidence of osteonecrosis of the femoral heads. Mild degenerative joint space n arrowing is seen in the hips. No hip joint effusion is identified. No lytic or blastic lesion is iden tified. The sacroiliac joints are normal. Lumbosacral spondylosis is partially visualized. There is g eneralized atrophy of the regional musculature. Question mild soft tissue contusion overlying the ant erior superior iliac spines bilaterally. The bladder, uterus, and adnexa are normal as visualized. Th ere is no pelvic sidewall or inguinal adenopathy. Diverticulosis is noted in the sigmoid colon withou t CT evidence of acute diverticulitis. There is no evidence of bowel obstruction. No free fluid or he morrhage is seen in the pelvis. Atherosclerotic calcification is noted in the distal abdominal aorta and iliac arteries. IMPRESSION: 1. No fracture is identified. 2. Question mild soft tissue contusions overlying the anterior iliac spine bilaterally. Correlate cli nically. ACT 112: Negative or not required by law. Dictated: 02/05/2021 6:24 PM Transcribed: 02/05/2021 6:46 PM Franny [id number] [email or web address] Electronically signed by: Donovan Chester M.D. 02/05/2021 6:50 PM
[2021-02-05 19:37] LABS: Appearance Urine Turbid (Clear); Bacteria Urine Automated 1+ (Negative); Bilirubin Urine Negative (Negative); Blood Urine 1+ (Negative); Color Urine Dark Yellow; Epithelial Cell Urine Auto >30 /lpf (0-5); Glucose Urine UA Negative (Negative); Ketones Urine Trace (Negative); Leukocyte Esterase Urine 3+ (Negative); Nitrite Urine Negative (Negative); Protein Urine 1+ (Negative); Specific Gravity Urine 1.026 (1.000-1.030); Urobilinogen Urine Negative (Negative); WBC Urine Automated >30 /hpf (0-5)
[2021-02-05 19:42] LABS: Hematocrit (blood only) 25.3 % (37-47); Hemoglobin 8.3 g/dL (12.0-16.0)
[2021-02-05 19:58] LABS: Cast Urine Automated 0 /lpf (0-5)
[2021-02-05] MEDS ORDERED: Nursing to Pharmacy Communication SCH (21:45)
--- NOTE | 2021-02-05 21:49 | Electrocardiogram Report ---
Test Reason : Blood Pressure : / mmHG Vent. Rate : 105 BPM Atrial Rate : 105 BPM P-R Int : 174 ms QRS Dur : 076 ms QT Int : 350 ms P-R-T Axes : 075 022 018 degrees QTc Int : 462 ms Sinus tachycardia Otherwise normal ECG When compared with ECG of 05-JAN-2021 14:03, T wave amplitude has decreased in Anterolateral leads Confirmed by Silas Muller ([id number]) on 02/05/2021 9:48:43 PM Referred By: ED Confirmed By:Silas Muller
[2021-02-05] MEDS: clonazePAM 0.5 MG TAB PO SCH (21:55)
[2021-02-05] MEDS: SERTRALINE HCL 100 MG TABLET PO SCH (21:55)
[2021-02-05] MEDS: SENNA 8.6 MG TAB PO SCH (21:55)
[2021-02-05] MEDS ORDERED: DAPTOmycin 250 MG in SYRINGE 0 ML IV SCH ×2 (23:00)
[2021-02-06] MEDS: PIPERACILLIN/TAZOBACTAM 3.375 GM in DEXTROSE 5% 100 ML IV SCH ×3 (01:45→18:05)
[2021-02-06] MEDS: oxyCODONE HCL IR 5 MG TAB (IMMEDIATE RELEASE) PO PRN (05:27)
[2021-02-06] MEDS: LEVOTHYROXINE SODIUM 125 MCG TABLET PO SCH (05:27)
[2021-02-06 06:30] LABS: Hematocrit (blood only) 26.2 % (37-47); Hemoglobin 8.3 g/dL (12.0-16.0); Mean Corpuscular Hemoglobin 27.9 pg (25-34); Mean Corpuscular Hgb Conc 31.7 g/dL (32-36); Mean Corpuscular Volume 87.9 fL (80-100); Mean Platelet Volume 8.7 fL (7.4-10.4); Platelet Count 443 K/uL (130-400); RDW Coefficient of Variation 14.8 % (11.5-14.5); RDW Standard Deviation 47.9 fL (36.4-46.3); Red Blood Count 2.98 M/uL (4.2-5.4)
--- NOTE | 2021-02-06 06:57 | Hospitalist Progress Note ---
Date of Service February 06, 2021 Assessment & Plan (1) Sepsis: (2) Infection: (3) Fall: (4) Acute kidney injury superimposed on chronic kidney disease: (5) PSVT (paroxysmal supraventricular tachycardia): (6) HTN (hypertension): (7) Hypothyroidism: (8) HLD (hyperlipidemia): (9) MERY (obstructive sleep apnea): Plan: Gram-positive bacteremia Septic joint This is an 85yo F with a PMH of hypertension, hyperlipidemia, CKD III, hypothyroidism and MERY not on CPAP who presents to the ED with worsening left lower extremity pain x4 days. Sepsis 2/2 left lower extremity infection in post-operative setting One month post-op s/p ORIF of left tibial plateau fracture by Dr. Smith [place] well initially but developed worsening pain, redness and swelling to the area over the past week. Was seen at ortho follow up and underwent venous doppler of LLE that was negative for DVT Afebrile, HR 92, WBC 20.25, plt 546, ESR 87, CRP 41.90, procalcitonin 3.20, lactate 2.4 - repeat lactate ordered Evaluated by Dr. Latif in ER - taken for emergent washout of wound (02/04) Patient tolerated procedure well, drainage and pus noted during procedure Joint aspiration, synovial fluid WBC > 238,000 Blood culture, February 04, positive for gram-positive cocci in clusters S/p left knee I&D, hemovac applied Started on empiric IV Vanco and Zosyn pre-op - will continue IV Dapto and Zosyn Pharmacy and ID consulted, plan for daptomycin dose 500 IV daily for now Per ortho: PT/OT as ordered NWB left lower extremity Continue knee immobilizer at all times; no knee ROM until hemovac drains are removed; most likely POD2 Ice to left knee PRN pain/swelling Elevate left leg on pillows for swelling. Use walker to assist with gait/transfers Lovenox for DVT prophylaxis. Will continue to follow - will plan for dressing change left leg today Most likely will need fci IV antibiotics. Follow wound culture, synovial fluid, blood culture Pain control, IV fluids, continued ortho care CT pelvis obtained - 1. No fracture is identified. 2. Question mild soft tissue contusions overlying the anterior iliac spine bilaterally. Correlate clinically. Fall at home In setting of LLE infection Fall precautions, PT/OT evaluation Patient lives at home with elderly Acute kidney injury superimposed on CKD III resolved Cr elevated at 1.7, baseline ~ 1 currently improved at ~1 In setting of sepsis, poor PO intake Continue IV fluids Daily BMP Acute blood loss anemia/status post fall and postoperative hemoglobin 7.6 on 02/05, received 1 unit of PRBCs Current hemoglobin 8.3, will recheck H&H at 5 PM 02/06 - CT pelvis also ordered by the orthopedics, as above Continue to closely monitor H&H Sanguinous drainage noted in Hemovac Hypertension Continue atenolol Holding losartan in setting of MOSES cont. to monitor BP Hypokalemia, hypomagnesemia Replete and monitor Paroxysmal SVT Monitor on tele, continue atenolol Hypothyroidism Continue levothyroxine Depression Continue sertraline DVT Ppx: SQ heparin Code status: FULL PCP: Dr. Roe Dispo: [facility] Discharge planning ordered. Admission and Anticipated Discharge Date Admission Date: February 04, 2021 Subjective Patient seen in follow-up of bacteremia, septic joint Underwent I&D of her left knee 2 days ago w/ ortho Hemoglobin dropped to 7.6 yesterday - received 1 unit of PRBCs yesterday, now hemoglobin 8.3 Repeat H&H at [address] pelvis obtained Currently resting in bed, in NAD, somnolent but easily arousable, and has no complaints at this time reports her left leg is feeling ok Denies any chest pain, shortness of breath, abdominal pain, nausea vomiting Patient's son updated over the phone yesterday. Review of Systems Review of Systems: All systems reviewed & are unremarkable except as noted in Subjective Physical Exam Physical Exam: General Appearance: elderly frail F lying in bed, in NAD Head: normocephalic, atraumatic Eyes: normal inspection, PERRL, EOMI, conjunctivae normal, anicteric sclerae ENT: external ear and nose normal, oropharynx normal Neck: normal visual inspection Respiratory: normal respiratory effort, lungs clear to auscultation, no wheeze, rales, rhonchi. No accessory muscle use Cardiovascular: regular rate, rhythm, no murmur, normal peripheral pulses Chest: normal inspection of chest Abdomen/GI: normal bowel sounds, soft, nontender, + bowel sounds Extremities/Musculoskeletal: LLE in sulma wraps, hemovac x2 with sanguinous drainage. no sensory loss noted, moves extremities and Neurologic: PERRL, EOMI, no face palsy, no dysarthria, moves all extremities Psychiatric: Somnolent but easily arousable, able to answer simple questions without difficulty Skin: no rashes, normal color, warm/dry Results & Data Results & Data ([facility]) Vital Signs (Past 12 Hours) Vital Signs Temp Pulse Pulse Pulse Resp BP BP 02/06/21 03:54 36.5 C 82 16 146/74 H 02/05/21 23:35 81 02/05/21 19:22 38 C H 83 17 100/61 Pulse Ox 02/06/21 03:54 90 02/05/21 23:35 02/05/21 19:22 93 Laboratory Results 02/06/21 02/06/21 02/06/21 Range/Units 05:38 05:38 05:38 WBC 12.60 H (4.8-10.8) K/uL RBC 2.98 L (4.2-5.4) M/uL Hgb 8.3 L (12.0-16.0) g/dL Hct 26.2 L (37-47) % MCV 87.9 (80-100) fL MCH 27.9 (25-34) pg MCHC 31.7 L (32-36) g/dL RDW Std Deviation 47.9 H (36.4-46.3) fL RDW Coeff of Brandan 14.8 H (11.5-14.5) % Plt Count 443 H (130-400) K/uL MPV 8.7 (7.4-10.4) fL ESR 53 H (0-30) mm/hr Sodium 137 (136-145) mmol/L Potassium 3.2 L (3.5-5.1) mmol/L Chloride 106 (98-107) mmol/L Carbon Dioxide 24 (21-32) mmol/L Anion Gap 7.0 (3-11) BUN 32 H (7-18) mg/dl Creatinine 1.04 (0.6-1.2) mg/dl Est Cr Clr Drug Dosing 44.0 ml/min Est GFR ( Amer) 57.5 ml/min Est GFR (Non-Af Amer) 49.6 ml/min BUN/Creatinine Ratio 31.2 H (10-20) Glucose 103 H (70-99) mg/dl Calcium 9.0 (8.5-10.1) mg/dl Phosphorus 3.4 D (2.5-4.9) mg/dl Magnesium 1.7 L (1.8-2.4) mg/dl C-Reactive Protein 30.50 H (0-0.29) mg/dl Urine Color Urine Appearance (Clear) Urine pH (4.5-7.5) Ur Specific [place] (1.000-1.030) Urine Protein (Negative) Urine Glucose (UA) (Negative) Urine Ketones (Negative) Urine Blood (Negative) Urine Nitrite (Negative) Urine Bilirubin (Negative) Urine Urobilinogen (Negative) Ur Leukocyte Esterase (Negative) Urine WBC (Auto) (0-5) /hpf Urine RBC (Auto) (0-4) /hpf U Hyaline Cast (Auto) (0-5) /lpf U Epithel Cells (Auto) (0-5) /lpf Urine Bacteria (Auto) (Negative) Urine Yeast Synovial Crystals Blood Type Antibody Screen Crossmatch 02/05/21 02/05/21 02/05/21 Range/Units 19:25 19:10 09:05 WBC (4.8-10.8) K/uL RBC (4.2-5.4) M/uL Hgb 8.3 L (12.0-16.0) g/dL Hct 25.3 L (37-47) % MCV (80-100) fL MCH (25-34) pg MCHC (32-36) g/dL RDW Std Deviation (36.4-46.3) fL RDW Coeff of Brandan (11.5-14.5) % Plt Count (130-400) K/uL MPV (7.4-10.4) fL ESR (0-30) mm/hr Sodium (136-145) mmol/L Potassium (3.5-5.1) mmol/L Chloride (98-107) mmol/L Carbon Dioxide (21-32) mmol/L Anion Gap (3-11) BUN (7-18) mg/dl Creatinine (0.6-1.2) mg/dl Est Cr Clr Drug Dosing ml/min Est GFR ( Amer) ml/min Est GFR (Non-Af Amer) ml/min BUN/Creatinine Ratio (10-20) Glucose (70-99) mg/dl Calcium (8.5-10.1) mg/dl Phosphorus (2.5-4.9) mg/dl Magnesium (1.8-2.4) mg/dl C-Reactive Protein (0-0.29) mg/dl Urine Color Dark Yellow Urine Appearance Turbid A (Clear) Urine pH 5.0 (4.5-7.5) Ur Specific [place] 1.026 (1.000-1.030) Urine Protein 1+ H (Negative) Urine Glucose (UA) Negative (Negative) Urine Ketones Trace H (Negative) Urine Blood 1+ H (Negative) Urine Nitrite Negative (Negative) Urine Bilirubin Negative (Negative) Urine Urobilinogen Negative (Negative) Ur Leukocyte Esterase 3+ H (Negative) Urine WBC (Auto) >30 H (0-5) /hpf Urine RBC (Auto) 5-10 H (0-4) /hpf U Hyaline Cast (Auto) 0 (0-5) /lpf U Epithel Cells (Auto) >30 H (0-5) /lpf Urine Bacteria (Auto) 1+ H (Negative) Urine Yeast Not Reportable Synovial Crystals Blood Type A Positive Antibody Screen NEGATIVE Crossmatch See Detail 02/05/21 02/05/21 02/04/21 Range/Units 08:45 08:45 17:26 WBC (4.8-10.8) K/uL RBC (4.2-5.4) M/uL Hgb 7.6 L (12.0-16.0) g/dL Hct 23.6 L (37-47) % MCV (80-100) fL MCH (25-34) pg MCHC (32-36) g/dL RDW Std Deviation (36.4-46.3) fL RDW Coeff of Brandan (11.5-14.5) % Plt Count (130-400) K/uL MPV (7.4-10.4) fL ESR (0-30) mm/hr Sodium (136-145) mmol/L Potassium (3.5-5.1) mmol/L Chloride (98-107) mmol/L Carbon Dioxide (21-32) mmol/L Anion Gap (3-11) BUN (7-18) mg/dl Creatinine (0.6-1.2) mg/dl Est Cr Clr Drug Dosing ml/min Est GFR ( Amer) ml/min Est GFR (Non-Af Amer) ml/min BUN/Creatinine Ratio (10-20) Glucose (70-99) mg/dl Calcium (8.5-10.1) mg/dl Phosphorus 4.4 (2.5-4.9) mg/dl Magnesium 2.1 (1.8-2.4) mg/dl C-Reactive Protein (0-0.29) mg/dl Urine Color Urine Appearance (Clear) Urine pH (4.5-7.5) Ur Specific [place] (1.000-1.030) Urine Protein (Negative) Urine Glucose (UA) (Negative) Urine Ketones (Negative) Urine Blood (Negative) Urine Nitrite (Negative) Urine Bilirubin (Negative) Urine Urobilinogen (Negative) Ur Leukocyte Esterase (Negative) Urine WBC (Auto) (0-5) /hpf Urine RBC (Auto) (0-4) /hpf U Hyaline Cast (Auto) (0-5) /lpf U Epithel Cells (Auto) (0-5) /lpf Urine Bacteria (Auto) (Negative) Urine Yeast Synovial Crystals Blood Type Antibody Screen Crossmatch Medications Administered Current Inpatient Medications Acetaminophen (Acetaminophen 500 Mg Tab) 1,000 mg PO Q8 PRN PRN Reason: Moderate Pain Stop: 03/06/21 21:47 Acetaminophen (Acetaminophen 1000 Mg/100 Ml Iv) 1,000 mg IV Q8H PRN PRN Reason: fever or pain Stop: 02/08/21 18:17 Last Admin: 02/05/21 18:57 Dose: 1,000 mg Documented by: Atenolol (Atenolol 25 Mg Tablet) 25 mg PO DAILY SABA Stop: 03/07/21 08:59 Last Admin: 02/05/21 07:58 Dose: 25 mg Documented by: Bisacodyl (Bisacodyl 10 Mg Supp) [address] DAILY PRN PRN Reason: Constipation Stop: 03/06/21 21:47 Clonazepam (Clonazepam 0.5 Mg Tab) 0.5 mg PO HS SABA Stop: 03/06/21 20:59 Last Admin: 02/05/21 21:55 Dose: 0.5 mg Documented by: Docusate Sodium (Docusate Sodium 100 Mg Cap) 100 mg PO BID SABA Stop: 03/06/21 22:44 Last Admin: 02/05/21 21:55 Dose: 100 mg Documented by: Heparin Sodium (Porcine) (Heparin Sod 5,000 Unit/0.5 Ml Vial) 5,000 units SQ Q12 SABA Stop: 03/06/21 22:44 Last Admin: 02/05/21 21:56 Dose: 5,000 units Documented by: Hydromorphone HCl (Hydromorphone Inj 0.5 Mg/0.5 Ml Syr) 0.5 mg IV Q4H PRN PRN Reason: Pain or Pre PT Stop: 02/18/21 21:47 Last Admin: 02/05/21 12:40 Dose: 0.5 mg Documented by: Piperacillin Sod/Tazobactam (Sod 3.375 gm/ Dextrose) 115 mls @ 28.75 mls/hr IV Q8H [facility]; Protocol Stop: 02/11/21 21:59 Last Infusion: 02/06/21 05:45 Dose: Infused Documented by: Daptomycin 500 mg/ Syringe 10 mls @ 2.5 mls/min IV DAILY@1800 SABA; Protocol Stop: 02/19/21 17:59 Last Admin: 02/05/21 17:23 Dose: 2.5 mls/min Documented by: Lorazepam (Ativan) 0.25 mg in 0.5 mls @ 0.5 mls/min IV PRN PRN PRN Reason: blood transfusion Stop: 03/07/21 12:25 Last Admin: 02/05/21 17:34 Dose: 0.5 mls/min Documented by: Magnesium Sulfate/Dextrose (Magnesium Sulfate / D5w) 1 gm in 100 mls @ 50 mls/hr IV Q2H [facility] Stop: 02/06/21 12:15 Levothyroxine Sodium (Levothyroxine Sodium 125 Mcg Tablet) 125 mcg PO DAILYBB [facility] Stop: 03/07/21 06:29 Last Admin: 02/06/21 05:27 Dose: 125 mcg Documented by: Magnesium Hydroxide (Magnesium Hydroxide Susp 30 Ml Udc) 30 ml PO Q6H PRN PRN Reason: Constipation Stop: 03/06/21 21:47 Melatonin (Melatonin 3 Mg Tab) 3 mg PO HSZ PRN; Protocol PRN Reason: Sleep Stop: 03/06/21 21:51 Metoclopramide HCl (Metoclopramide Hcl Inj 5 Mg/Ml 2 Ml Vial) 10 mg IV Q6H PRN PRN Reason: Nausea And Vomiting Stop: 03/06/21 21:47 Metoprolol Tartrate (Metoprolol Tartrate 1 Mg/Ml Vial) 2.5 mg IV Q4H PRN PRN Reason: HR >120 Stop: 03/06/21 21:47 Miscellaneous Information (Piperacill/Tazobac Consult Active) 1 ea N/A UD PRN PRN Reason: Consult Stop: 03/06/21 16:02 Miscellaneous Information (Daptomycin Consult Active) 1 ea N/A UD PRN PRN Reason: Consult Stop: 03/06/21 19:07 Naloxone HCl (Naloxone Hcl 0.4 Mg/1 Ml Vial/Carp) 0.1 mg IV Q5M PRN PRN Reason: Oversedation/Resp Depression Stop: 03/06/21 21:47 Ondansetron HCl (Ondansetron Inj 2 Mg/Ml 2 Ml Vial) 4 mg IV Q6H PRN PRN Reason: Nausea And Vomiting Stop: 03/06/21 21:47 Oxycodone HCl (Oxycodone Hcl Ir 5 Mg Tab (Immediate Release)) 5 - 10 mg PO Q4H PRN PRN Reason: Pain or Pre PT Stop: 02/18/21 21:47 Last Admin: 02/06/21 05:27 Dose: 10 mg Documented by: Pantoprazole Sodium (Pantoprazole 40 Mg Tab) 40 mg PO BID [facility] Stop: 03/06/21 22:14 Last Admin: 02/05/21 21:55 Dose: 40 mg Documented by: Sennosides (Senna 8.6 Mg Tab) 17.2 mg PO HS [facility] Stop: 03/06/21 22:44 Last Admin: 02/05/21 21:55 Dose: 17.2 mg Documented by: Sertraline HCl (Sertraline Hcl 100 Mg Tablet) 100 mg PO [facility] Stop: 03/06/21 22:14 Last Admin: 02/05/21 21:55 Dose: 100 mg Documented by: Tramadol HCl (Tramadol Hcl 50 Mg Tablet) 50 - 100 mg PO Q4H PRN PRN Reason: Pain & Pre PT Stop: 03/06/21 21:47 (1) Fall Encounter type: initial encounter Qualified Code(s): W19.XXXA - Unspecified fall, initial encounter
[2021-02-06 07:01] LABS: BUN Creatinine Ratio 31.2 (10-20); Est GFR (African American) 57.5 ml/min; Est GFR (Non-African American) 49.6 ml/min; Magnesium 1.7 mg/dl (1.8-2.4); Potassium 3.2 mmol/L (3.5-5.1)
[2021-02-06 07:37] LABS: C Reactive Protein 30.5 mg/dl (0-0.29); Phosphorus 3.4 mg/dl (2.5-4.9)
[2021-02-06] MEDS ORDERED: POTASSIUM CHLORIDE CRTAB 20 MEQ TABCR PO STA (08:16)
[2021-02-06] MEDS: MAGNESIUM SULFATE / D5W 1 GM/100 ML BAG IV SCH ×2 (09:21→11:29)
[2021-02-06] MEDS: PANTOprazole 40 MG TAB PO SCH ×2 (09:22→20:22)
[2021-02-06] MEDS: HEPARIN SOD 5,000 UNIT/0.5 ML VIAL SQ SCH ×2 (09:22→20:22)
[2021-02-06] MEDS: DOCUSATE SODIUM 100 MG CAP PO SCH ×2 (09:22→20:22)
[2021-02-06] MEDS: ATENOLOL 25 MG TABLET PO SCH (09:22)
--- NOTE | 2021-02-06 12:50 | Progress Notes ---
DATE OF SERVICE: 02/06/2021 Claudia is resting comfortably in bed. She is confused. She knows the year only. She had a temp of 38 yesterday. Her vital signs are stable and she is currently afebrile. Blood cultures from 02/05 are negative. All of her knee cultures and prior blood cultures are growin g out Staph species, which is oxacillin sensitive. Her white count is decreasing to 12.6 today. Her hemoglobin is up to 8.3. Her PRP is noted. Her pelvis CT was performed because of some questionable findings on plain films. The CT scan shows no evidence of fracture. Her dressing is changed. The erythema has largely dissipated. The wound is benign. Drains are removed. There is no significant fluid within the knee or around the tibial plateau incisi on. She can wiggle her toes and flex and extend the ankle with 4+ to 5-/5 strength. She can invert and roderick as well. Dorsalis pedis 1+. Sensation intact. Swelling is minimal. Discontinue knee immobilizer. She can bend her knee. She is to remain nonweightbearing on the left leg. She will need long-term intravenous antibiotics likely via PICC line. I will defer to infectio us diseases and medicine regarding that. She will follow up with Dr. Smith. We will arrange th at appointment. She will need to continue on either Lovenox or subcutaneous heparin for her DVT prop hylaxis. I will be out of town starting today. One of my partners will be covering if anything is needed. Dr Christine Lanza is information assurance manager today and Dr. Purvis is information assurance manager over the weekend. Job ID: [id number]
[2021-02-06] MEDS ORDERED: POTASSIUM CHLORIDE CRTAB 20 MEQ TABCR PO ONE (14:00)
[2021-02-06] MEDS ORDERED: FUROSEMIDE 10 MG in SYRINGE 0 ML IV ONE (14:00)
[2021-02-06] MEDS: traMADol HCL 50 MG TABLET PO PRN ×2 (14:55→20:22)
[2021-02-06 17:23] LABS: Hematocrit (blood only) 26.5 % (37-47); Hemoglobin 8.6 g/dL (12.0-16.0)
[2021-02-06] MEDS: DAPTOmycin 500 MG in SYRINGE 0 ML IV SCH (18:06)
[2021-02-06] MEDS: ONDANSETRON INJ 2 MG/ML 2 ML VIAL IV PRN (19:08)
[2021-02-06] MEDS: clonazePAM 0.5 MG TAB PO SCH (20:22)
[2021-02-06] MEDS: SENNA 8.6 MG TAB PO SCH (20:22)
[2021-02-06] MEDS: SERTRALINE HCL 100 MG TABLET PO SCH (20:47)
[2021-02-06] MEDS: MELATONIN 3 MG TAB PO PRN (23:05)
[2021-02-07] MEDS: oxyCODONE HCL IR 5 MG TAB (IMMEDIATE RELEASE) PO PRN (00:03)
[2021-02-07] MEDS: PIPERACILLIN/TAZOBACTAM 3.375 GM in DEXTROSE 5% 100 ML IV SCH ×2 (02:13→11:25)
[2021-02-07] MEDS: LEVOTHYROXINE SODIUM 125 MCG TABLET PO SCH (06:21)
--- NOTE | 2021-02-07 07:43 | Hospitalist Progress Note ---
Date of Service February 07, 2021 Assessment & Plan (1) Sepsis: (2) Infection: (3) Fall: (4) Acute kidney injury superimposed on chronic kidney disease: (5) PSVT (paroxysmal supraventricular tachycardia): (6) HTN (hypertension): (7) Hypothyroidism: (8) HLD (hyperlipidemia): (9) MERY (obstructive sleep apnea): Plan: Gram-positive bacteremia MSSA bacteremia Septic joint This is an 85yo F with a PMH of hypertension, hyperlipidemia, CKD III, hypoth yroidism and MERY not on CPAP who presents with worsening left lower extremity pain x4 days. Sepsis 2/2 left lower extremity infection in post-operative setting One month post-op s/p ORIF of left tibial plateau fracture by Dr. Smith [place] well initially but developed worsening pain, redness and swelling to the area over the past week. Was seen at ortho follow up and underwent Venous doppler of LLE that was negative for DVT Afebrile, HR 92, WBC 20.25 K, plt 546, ESR 87, CRP 41.90, procalcitonin 3.20, lactate 2.[address] Latif in ER - taken for emergent washout of wound (02/04) Patient tolerated procedure well, drainage and pus noted during procedure Joint aspiration, synovial fluid WBC > 238,000 Blood culture, February 04, positive for gram-positive cocci in clusters (MSSA) Repeat blood cultx - pending S/p left knee I&D, hemovac applied Started on empiric IV Vanco and Zosyn pre-op Pharmacy and ID consulted, plan for daptomycin dose 500 IV daily for now Given blood and synovial cultx - MSSA - switch Abx to cefazolin Per ortho: PT/OT as ordered NWB left lower extremity Ice to left knee PRN pain/swelling Elevate left leg on pillows for swelling. Use walker to assist with gait/transfers Lovenox for DVT prophylaxis. Most likely will need assisted IV antibiotics. Pain control, IV fluids, continued ortho care CT pelvis obtained - 1. No fracture is identified. 2. Question mild soft tissue contusions overlying the anterior iliac spine bilaterally. Correlate clinically. Fall at home In setting of LLE infection Fall precautions, PT/OT evaluation Patient lives at home with elderly Acute kidney injury superimposed on CKD III resolved Cr elevated at 1.7, baseline ~ 1 currently improved at ~1 In setting of sepsis, poor PO intake Continue IV fluids Daily BMP Acute blood loss anemia/status post fall and postoperative hemoglobin 7.6 on 02/05, received 1 unit of PRBCs Hgb stable 02/06 - CT pelvis also ordered by the orthopedics, as above Continue to closely monitor H&H Sanguinous drainage noted in Hemovac, now hemovac removed Hypertension Continue atenolol Holding losartan in setting of MOSES cont. to monitor BP Hypokalemia, hypomagnesemia Replete and monitor Paroxysmal SVT Monitor on tele, continue atenolol Hypothyroidism Continue levothyroxine Depression Continue sertraline DVT Ppx: SQ heparin Code status: FULL PCP: Dr. Roe Dispo: Admitted to [facility]. Discharge planning ordered. Admission and Anticipated Discharge Date Admission Date: February 04, 2021 Subjective Patient seen in follow-up of bacteremia, septic joint Underwent I&D of her left knee w/ orthopedics Currently sitting up in chair, in NAD, awake and alert, has no complaints at this time reports her left leg is feeling ok Denies any chest pain, shortness of breath, abdominal pain, nausea vomiting Review of Systems Review of Systems: All systems reviewed & are unremarkable except as noted in Subjective Physical Exam Physical Exam: General Appearance: elderly frail F lying sitting up in chair, in NAD Head: normocephalic, atraumatic Eyes: normal inspection, PERRL, EOMI, conjunctivae normal, anicteric sclerae ENT: external ear and nose normal, oropharynx normal Neck: normal visual inspection Respiratory: normal respiratory effort, lungs clear to auscultation, no wheeze, rales, rhonchi. No accessory muscle use Cardiovascular: regular rate, rhythm, no murmur, normal peripheral pulses Chest: normal inspection of chest Abdomen/GI: soft, nontender, + bowel sounds Extremities/Musculoskeletal: LLE in sulma wraps, no sensory loss noted, moves extremities Neurologic: PERRL, EOMI, no face palsy, no dysarthria, moves all extremities Psychiatric: awake and alert, able to answer simple questions without difficulty Skin: no rashes, normal color, warm/dry Results & Data Results & Data ([facility]) Vital Signs (Past 12 Hours) Vital Signs Temp Pulse Pulse Pulse Resp BP BP 02/07/21 07:31 80 02/07/21 07:00 37.0 C 77 19 108/63 02/06/21 23:31 82 02/06/21 23:22 36.6 C 75 18 139/76 02/06/21 20:30 37.6 C H 89 16 121/67 Pulse Ox 02/07/21 07:31 02/07/21 07:00 97 02/06/21 23:31 02/06/21 23:22 95 02/06/21 20:30 88 L Laboratory Results 02/07/21 02/07/21 02/07/21 Range/Units 07:34 07:34 07:34 WBC 11.60 H (4.8-10.8) K/uL RBC 2.78 L (4.2-5.4) M/uL Hgb 7.9 L (12.0-16.0) g/dL Hct 24.4 L (37-47) % MCV 87.8 (80-100) fL MCH 28.4 (25-34) pg MCHC 32.4 (32-36) g/dL RDW Std Deviation 48.4 H (36.4-46.3) fL RDW Coeff of Brandan 14.9 H (11.5-14.5) % Plt Count 411 H (130-400) K/uL MPV 8.4 (7.4-10.4) fL Sodium 135 L (136-145) mmol/L Potassium 4.0 D (3.5-5.1) mmol/L Chloride 106 (98-107) mmol/L Carbon Dioxide 23 (21-32) mmol/L Anion Gap 6.0 (3-11) BUN 20 H (7-18) mg/dl Creatinine 0.77 (0.6-1.2) mg/dl Est Cr Clr Drug Dosing 59.4 ml/min Est GFR ( Amer) 82.8 ml/min Est GFR (Non-Af Amer) 71.4 ml/min BUN/Creatinine Ratio 25.5 H (10-20) Glucose 96 (70-99) mg/dl Calcium 9.1 (8.5-10.1) mg/dl Phosphorus 2.7 (2.5-4.9) mg/dl Magnesium 1.6 L (1.8-2.4) mg/dl 25-OH Vitamin D Total 28.3 L (30-100) ng/ml 02/06/21 Range/Units 17:12 WBC (4.8-10.8) K/uL RBC (4.2-5.4) M/uL Hgb 8.6 L (12.0-16.0) g/dL Hct 26.5 L (37-47) % MCV (80-100) fL MCH (25-34) pg MCHC (32-36) g/dL RDW Std Deviation (36.4-46.3) fL RDW Coeff of Brandan (11.5-14.5) % Plt Count (130-400) K/uL MPV (7.4-10.4) fL Sodium (136-145) mmol/L Potassium (3.5-5.1) mmol/L Chloride (98-107) mmol/L Carbon Dioxide (21-32) mmol/L Anion Gap (3-11) BUN (7-18) mg/dl Creatinine (0.6-1.2) mg/dl Est Cr Clr Drug Dosing ml/min Est GFR ( Amer) ml/min Est GFR (Non-Af Amer) ml/min BUN/Creatinine Ratio (10-20) Glucose (70-99) mg/dl Calcium (8.5-10.1) mg/dl Phosphorus (2.5-4.9) mg/dl Magnesium (1.8-2.4) mg/dl 25-OH Vitamin D Total (30-100) ng/ml Medications Administered Current Inpatient Medications Acetaminophen (Acetaminophen 500 Mg Tab) 1,000 mg PO Q8 PRN PRN Reason: Moderate Pain Stop: 03/06/21 21:47 Acetaminophen (Acetaminophen 1000 Mg/100 Ml Iv) 1,000 mg IV Q8H PRN PRN Reason: fever or pain Stop: 02/08/21 18:17 Last Admin: 02/05/21 18:57 Dose: 1,000 mg Documented by: Atenolol (Atenolol 25 Mg Tablet) 25 mg PO DAILY SABA Stop: 03/07/21 08:59 Last Admin: 02/06/21 09:22 Dose: 25 mg Documented by: Bisacodyl (Bisacodyl 10 Mg Supp) 10 mg AL DAILY PRN PRN Reason: Constipation Stop: 03/06/21 21:47 Clonazepam (Clonazepam 0.5 Mg Tab) 0.5 mg PO HS SABA Stop: 03/06/21 20:59 Last Admin: 02/06/21 20:22 Dose: 0.5 mg Documented by: Docusate Sodium (Docusate Sodium 100 Mg Cap) 100 mg PO BID SABA Stop: 03/06/21 22:44 Last Admin: 02/06/21 20:22 Dose: 100 mg Documented by: Heparin Sodium (Porcine) (Heparin Sod 5,000 Unit/0.5 Ml Vial) 5,000 units SQ Q12 SABA Stop: 03/06/21 22:44 Last Admin: 02/06/21 20:22 Dose: 5,000 units Documented by: Hydromorphone HCl (Hydromorphone Inj 0.5 Mg/0.5 Ml Syr) 0.5 mg IV Q4H PRN PRN Reason: Pain or Pre PT Stop: 02/18/21 21:47 Last Admin: 02/05/21 12:40 Dose: 0.5 mg Documented by: Piperacillin Sod/Tazobactam (Sod 3.375 gm/ Dextrose) 115 mls @ 28.75 mls/hr IV Q8H SABA; Protocol Stop: 02/11/21 21:59 Last Infusion: 02/07/21 06:21 Dose: Infused Documented by: Daptomycin 500 mg/ Syringe 10 mls @ 2.5 mls/min IV DAILY@1800 SABA; Protocol Stop: 02/19/21 17:59 Last Admin: 02/06/21 18:06 Dose: 2.5 mls/min Documented by: Lorazepam (Ativan) 0.25 mg in 0.5 mls @ 0.5 mls/min IV PRN PRN PRN Reason: blood transfusion Stop: 03/07/21 12:25 Last Admin: 02/05/21 17:34 Dose: 0.5 mls/min Documented by: Levothyroxine Sodium (Levothyroxine Sodium 125 Mcg Tablet) 125 mcg PO DAILYBB SABA Stop: 03/07/21 06:29 Last Admin: 02/07/21 06:21 Dose: 125 mcg Documented by: Magnesium Hydroxide (Magnesium Hydroxide Susp 30 Ml Udc) 30 ml PO Q6H PRN PRN Reason: Constipation Stop: 03/06/21 21:47 Melatonin (Melatonin 3 Mg Tab) 3 mg PO HSZ PRN; Protocol PRN Reason: Sleep Stop: 03/06/21 21:51 Last Admin: 02/06/21 23:05 Dose: 3 mg Documented by: Metoclopramide HCl (Metoclopramide Hcl Inj 5 Mg/Ml 2 Ml Vial) 10 mg IV Q6H PRN PRN Reason: Nausea And Vomiting Stop: 03/06/21 21:47 Metoprolol Tartrate (Metoprolol Tartrate 1 Mg/Ml Vial) 2.5 mg IV Q4H PRN PRN Reason: HR >120 Stop: 03/06/21 21:47 Miscellaneous Information (Piperacill/Tazobac Consult Active) 1 ea N/A UD PRN PRN Reason: Consult Stop: 03/06/21 16:02 Miscellaneous Information (Daptomycin Consult Active) 1 ea N/A UD PRN PRN Reason: Consult Stop: 03/06/21 19:07 Naloxone HCl (Naloxone Hcl 0.4 Mg/1 Ml Vial/Carp) 0.1 mg IV Q5M PRN PRN Reason: Oversedation/Resp Depression Stop: 03/06/21 21:47 Ondansetron HCl (Ondansetron Inj 2 Mg/Ml 2 Ml Vial) 4 mg IV Q6H PRN PRN Reason: Nausea And Vomiting Stop: 03/06/21 21:47 Last Admin: 02/06/21 19:08 Dose: 4 mg Documented by: Oxycodone HCl (Oxycodone Hcl Ir 5 Mg Tab (Immediate Release)) 5 - 10 mg PO Q4H PRN PRN Reason: Pain or Pre PT Stop: 02/18/21 21:47 Last Admin: 02/07/21 00:03 Dose: 10 mg Documented by: Pantoprazole Sodium (Pantoprazole 40 Mg Tab) 40 mg PO BID SABA Stop: 03/06/21 22:14 Last Admin: 02/06/21 20:22 Dose: 40 mg Documented by: Sennosides (Senna 8.6 Mg Tab) 17.2 mg PO HS SABA Stop: 03/06/21 22:44 Last Admin: 02/06/21 20:22 Dose: 17.2 mg Documented by: Sertraline HCl (Sertraline Hcl 100 Mg Tablet) 100 mg PO HS SABA Stop: 03/06/21 22:14 Last Admin: 02/06/21 20:47 Dose: 100 mg Documented by: Tramadol HCl (Tramadol Hcl 50 Mg Tablet) 50 - 100 mg PO Q4H PRN PRN Reason: Pain & Pre PT Stop: 03/06/21 21:47 Last Admin: 02/06/21 20:22 Dose: 100 mg Documented by: (1) Fall Encounter type: initial encounter Qualified Code(s): W19.XXXA - Unspecified fall, initial encounter
[2021-02-07 07:58] LABS: Hematocrit (blood only) 24.4 % (37-47); Hemoglobin 7.9 g/dL (12.0-16.0); Mean Corpuscular Hemoglobin 28.4 pg (25-34); Mean Corpuscular Hgb Conc 32.4 g/dL (32-36); Mean Corpuscular Volume 87.8 fL (80-100); Mean Platelet Volume 8.4 fL (7.4-10.4); Platelet Count 411 K/uL (130-400); RDW Coefficient of Variation 14.9 % (11.5-14.5); RDW Standard Deviation 48.4 fL (36.4-46.3); Red Blood Count 2.78 M/uL (4.2-5.4)
[2021-02-07 08:33] LABS: BUN Creatinine Ratio 25.5 (10-20); Calcium 9.1 mg/dl (8.5-10.1); Creatinine Clr Calc Pharmacy 59.4 ml/min; Est GFR (African American) 82.8 ml/min; Est GFR (Non-African American) 71.4 ml/min; Magnesium 1.6 mg/dl (1.8-2.4); Phosphorus 2.7 mg/dl (2.5-4.9)
[2021-02-07] MEDS: DOCUSATE SODIUM 100 MG CAP PO SCH ×2 (09:00→20:58)
[2021-02-07] MEDS: PANTOprazole 40 MG TAB PO SCH ×2 (09:00→20:51)
[2021-02-07] MEDS: HEPARIN SOD 5,000 UNIT/0.5 ML VIAL SQ SCH ×2 (09:01→20:51)
[2021-02-07] MEDS: ATENOLOL 25 MG TABLET PO SCH (09:01)
--- NOTE | 2021-02-07 10:13 | Orthopedic Progress Note ---
Date of Service February 07, 2021 Assessment & Plan (1) Post-operative infection: Plan: POD # 3 s/p I&D L knee (Dr. Latif), 4 weeks s/p ORIF L Tibial plateau (Dr. Smith) Continue nonweightbearing status. Dressings can remain in place as there is no significant bleeding. PT/OT today. Continue care per primary service. Admission and Anticipated Discharge Date Admission Date: February 04, 2021 Supervising Physician Co-Signing Physician Notes I, Dr. Lanza, saw and examined the patient and agree with the above findings and plan of care. Subjective Patient is seen in her room this morning. She states she is doing okay. Conversive with simple questions. She states she has no current pain. No new complaints. Physical Exam Physical Exam: Evaluation of the left leg reveals an intact bandage and Doe wrap. Underlying dressings are dry. There is no strikethrough. She has mild discomfort with palpation over the proximal tibia. No discomfort palpation of her calf. She has supple motion of her knee for full terminal extension to flexion of around 40 degrees. There is no discomfort. She has intact motor function of her ankle and toes. Neurologic: Gross sensation is intact across all aspects of the foot and lower leg by soft touch. Peripheral pulses are 2+. For dorsalis pedis and tibialis posterior. Results & Data ([facility]) Vital Signs (Past 12 Hours) Vital Signs Temp Pulse Pulse Resp BP BP Pulse Ox 02/07/21 07:31 80 02/07/21 07:00 37.0 C 77 19 108/63 97 02/06/21 23:31 82 02/06/21 23:22 36.6 C 75 18 139/76 95 Laboratory Results White count this morning is 11.6, improved from 12.6 yesterday. She remains anemic with a hemoglobin of 7.9 and hematocrit 24.4. Sodium 135, potassium 4.0, chloride 106. BUN 20, creatinine 0.77. Glucose 96. Vitamin D level is low at 28.3. (1) Post-operative infection Encounter type: initial encounter Postoperative infection type: unspecified type Qualified Code(s): T81.40XA - Infection following a procedure, unspecified, initial encounter
[2021-02-07] MEDS ORDERED: MAGNESIUM SULFATE / D5W 1 GM/100 ML BAG IV ONE (13:08)
[2021-02-07 13:33] LABS: Hematocrit (blood only) 28.3 % (37-47)
[2021-02-07] MEDS: traMADol HCL 50 MG TABLET PO PRN (14:58)
[2021-02-07] MEDS: ceFAZolin 2000MG 2,000 MG/15 ML SYR IV SCH (18:33)
[2021-02-07] MEDS: MAGNESIUM OXIDE 400 MG TAB PO SCH (20:57)
[2021-02-07] MEDS: SENNA 8.6 MG TAB PO SCH (20:58)
[2021-02-07] MEDS: SERTRALINE HCL 100 MG TABLET PO SCH (20:58)
[2021-02-07] MEDS: clonazePAM 0.5 MG TAB PO SCH (21:00)
[2021-02-08] MEDS: ceFAZolin 2000MG 2,000 MG/15 ML SYR IV SCH ×2 (03:37→10:43)
[2021-02-08] MEDS: LEVOTHYROXINE SODIUM 125 MCG TABLET PO SCH (06:08)
[2021-02-08] MEDS: DOCUSATE SODIUM 100 MG CAP PO SCH ×2 (07:52→20:18)
[2021-02-08] MEDS: ATENOLOL 25 MG TABLET PO SCH (07:52)
[2021-02-08] MEDS: HEPARIN SOD 5,000 UNIT/0.5 ML VIAL SQ SCH ×2 (07:53→20:18)
[2021-02-08] MEDS: traMADol HCL 50 MG TABLET PO PRN ×3 (07:53→23:42)
[2021-02-08] MEDS: MAGNESIUM OXIDE 400 MG TAB PO SCH ×2 (07:53→20:19)
[2021-02-08] MEDS: PANTOprazole 40 MG TAB PO SCH ×2 (07:53→20:19)
[2021-02-08 08:39] LABS: Hematocrit (blood only) 29.8 % (37-47); Hemoglobin 9.4 g/dL (12.0-16.0); Mean Corpuscular Hemoglobin 28.1 pg (25-34); Mean Corpuscular Hgb Conc 31.5 g/dL (32-36); Mean Platelet Volume 8.7 fL (7.4-10.4); Platelet Count 576 K/uL (130-400); RDW Coefficient of Variation 14.9 % (11.5-14.5); RDW Standard Deviation 48.7 fL (36.4-46.3); Red Blood Count 3.35 M/uL (4.2-5.4); White Blood Count 16.64 K/uL (4.8-10.8)
[2021-02-08 08:57] LABS: BUN Creatinine Ratio 27.3 (10-20); Calcium 10.3 mg/dl (8.5-10.1); Creatinine Clr Calc Pharmacy 67.2 ml/min; Est GFR (African American) 93.8 ml/min; Est GFR (Non-African American) 80.9 ml/min; Magnesium 1.7 mg/dl (1.8-2.4); Phosphorus 2.9 mg/dl (2.5-4.9); Potassium 4.1 mmol/L (3.5-5.1)
--- NOTE | 2021-02-08 12:46 | Hospitalist Progress Note ---
Date of Service February 08, 2021 Assessment & Plan (1) Sepsis: (2) Infection: (3) Fall: (4) Acute kidney injury superimposed on chronic kidney disease: (5) PSVT (paroxysmal supraventricular tachycardia): (6) HTN (hypertension): (7) Hypothyroidism: (8) HLD (hyperlipidemia): (9) MERY (obstructive sleep apnea): Plan: Gram-positive bacteremia MSSA bacteremia Septic joint This is an 85yo F with a PMH of hypertension, hyperlipidemia, CKD III, hypoth yroidism and MERY not on CPAP who presents with worsening left lower extremity pain x4 days. Sepsis 2/2 left lower extremity infection in post-operative setting One month post-op s/p ORIF of left tibial plateau fracture by Dr. Smith [place] well initially but developed worsening pain, redness and swelling to the area over the past week. Was seen at ortho follow up and underwent Venous doppler of LLE that was negative for DVT Afebrile, HR 92, WBC 20.25 K, plt 546, ESR 87, CRP 41.90, procalcitonin 3.20, lactate 2.[address] Latif in ER - taken for emergent washout of wound (02/04) Patient tolerated procedure well, drainage and pus noted during procedure Joint aspiration, synovial fluid WBC > 238,000 Blood culture, February 04, positive for gram-positive cocci in clusters (MSSA) Repeat blood cultx -February 05, positive for gram-positive cocci 02/08 - repeat blood cultures S/p left knee I&D, hemovac applied (now hemovac removed) Started on empiric IV Vanco and Zosyn pre-op Pharmacy and ID consulted, daptomycin dose 500 IV daily initially , continued zosyn Given blood and synovial cultx - MSSA - switch Abx to cefazolin (02/07) Per ortho: PT/OT as ordered NWB left lower extremity Ice to left knee PRN pain/swelling Elevate left leg on pillows for swelling. Use walker to assist with gait/transfers Lovenox for DVT prophylaxis. Most likely will need alf IV antibiotics. Pain control, IV fluids, continued ortho care CT pelvis obtained - 1. No fracture is identified. 2. Question mild soft tissue contusions overlying the anterior iliac spine bilaterally. Correlate clinically. Fall at home In setting of LLE infection Fall precautions, PT/OT evaluation Patient lives at home with elderly Acute kidney injury superimposed on CKD III resolved Cr elevated at 1.7, baseline ~ 1 currently improved at ~1 In setting of sepsis, poor PO intake Continue IV fluids Daily BMP Acute blood loss anemia/status post fall and postoperative hemoglobin 7.6 on 02/05, received 1 unit of PRBCs Current Hgb 9.4 Hgb stable 02/06 - CT pelvis also ordered by the orthopedics, as above Continue to closely monitor H&H Sanguinous drainage noted in Hemovac, now hemovac removed Hypertension Continue atenolol Holding losartan in setting of MOSES cont. to monitor BP Hypokalemia, hypomagnesemia Replete and monitor Paroxysmal SVT Monitor on tele, continue atenolol Hypothyroidism Continue levothyroxine Depression Continue sertraline DVT Ppx: SQ heparin Code status: FULL PCP: Dr. Roe [facility]po: [facility] Discharge planning ordered. Admission and Anticipated Discharge Date Admission Date: February 04, 2021 Subjective Patient seen in follow-up of bacteremia, septic joint Underwent I&D of her left knee w/ orthopedics Currently laying in bed, in NAD, awake and alert, has no complaints at this time Reports her left leg is feeling ok Denies any chest pain, shortness of breath, abdominal pain, nausea vomiting Antibiotics changed yesterday for MSSA Repeat blood culture, from February 05, positive Repeat blood cultures Patient son Dillon updated over the phone. Review of Systems Review of Systems: All systems reviewed & are unremarkable except as noted in Subjective Physical Exam Physical Exam: General Appearance: elderly frail F lying in bed, in NAD Head: normocephalic, atraumatic Eyes: normal inspection, PERRL, EOMI, conjunctivae normal, anicteric sclerae ENT: external ear and nose normal, oropharynx normal Neck: normal visual inspection Respiratory: normal respiratory effort, lungs clear to auscultation, no wheeze, rales, rhonchi. No accessory muscle use Cardiovascular: regular rate, rhythm, no murmur, normal peripheral pulses Chest: normal inspection of chest Abdomen/GI: soft, nontender, + bowel sounds Extremities/Musculoskeletal: LLE in sulma wraps, no sensory loss noted, moves extremities Neurologic: PERRL, EOMI, no face palsy, no dysarthria, moves all extremities Psychiatric: awake and alert, able to answer simple questions without difficulty Skin: no rashes, normal color, warm/dry Results & Data Results & Data ([facility]) Vital Signs (Past 12 Hours) Vital Signs Temp Pulse Pulse Resp BP BP Pulse Ox 02/08/21 11:10 36.7 C 92 H 16 115/76 92 02/08/21 10:47 103 H 02/08/21 07:23 37 C 96 H 18 105/70 97 02/08/21 04:31 37 C 64 16 107/65 94 02/08/21 01:33 104 H Laboratory Results 02/08/21 02/08/21 02/07/21 Range/Units 07:50 07:50 13:18 WBC 16.64 H (4.8-10.8) K/uL RBC 3.35 L (4.2-5.4) M/uL Hgb 9.4 L 9.0 L (12.0-16.0) g/dL Hct 29.8 L 28.3 L (37-47) % MCV 89.0 (80-100) fL MCH 28.1 (25-34) pg MCHC 31.5 L (32-36) g/dL RDW Std Deviation 48.7 H (36.4-46.3) fL RDW Coeff of Brandan 14.9 H (11.5-14.5) % Plt Count 576 H (130-400) K/uL MPV 8.7 (7.4-10.4) fL Sodium 135 L (136-145) mmol/L Potassium 4.1 (3.5-5.1) mmol/L Chloride 103 (98-107) mmol/L Carbon Dioxide 25 (21-32) mmol/L Anion Gap 7.0 (3-11) BUN 19 H (7-18) mg/dl Creatinine 0.68 (0.6-1.2) mg/dl Est Cr Clr Drug Dosing 67.2 ml/min Est GFR ( Amer) 93.8 ml/min Est GFR (Non-Af Amer) 80.9 ml/min BUN/Creatinine Ratio 27.3 H (10-20) Glucose 91 (70-99) mg/dl Calcium 10.3 H (8.5-10.1) mg/dl Phosphorus 2.9 (2.5-4.9) mg/dl Magnesium 1.7 L (1.8-2.4) mg/dl Bld Cult Staph aureus PCR (Negative) Blood Culture MRSA PCR (Negative) 02/05/21 Range/Units 08:56 WBC (4.8-10.8) K/uL RBC (4.2-5.4) M/uL Hgb (12.0-16.0) g/dL Hct (37-47) % MCV (80-100) fL MCH (25-34) pg MCHC (32-36) g/dL RDW Std Deviation (36.4-46.3) fL RDW Coeff of Brandan (11.5-14.5) % Plt Count (130-400) K/uL MPV (7.4-10.4) fL Sodium (136-145) mmol/L Potassium (3.5-5.1) mmol/L Chloride (98-107) mmol/L Carbon Dioxide (21-32) mmol/L Anion Gap (3-11) BUN (7-18) mg/dl Creatinine (0.6-1.2) mg/dl Est Cr Clr Drug Dosing ml/min Est GFR ( Amer) ml/min Est GFR (Non-Af Amer) ml/min BUN/Creatinine Ratio (10-20) Glucose (70-99) mg/dl Calcium (8.5-10.1) mg/dl Phosphorus (2.5-4.9) mg/dl Magnesium (1.8-2.4) mg/dl Bld Cult Staph aureus PCR Positive A (Negative) Blood Culture MRSA PCR Negative (Negative) Medications Administered Current Inpatient Medications Acetaminophen (Acetaminophen 500 Mg Tab) 1,000 mg PO Q8 PRN PRN Reason: Moderate Pain Stop: 03/06/21 21:47 Acetaminophen (Acetaminophen 1000 Mg/100 Ml Iv) 1,000 mg IV Q8H PRN PRN Reason: fever or pain Stop: 02/08/21 18:17 Last Admin: 02/05/21 18:57 Dose: 1,000 mg Documented by: Atenolol (Atenolol 25 Mg Tablet) 25 mg PO DAILY SABA Stop: 03/07/21 08:59 Last Admin: 02/08/21 07:52 Dose: 25 mg Documented by: Bisacodyl (Bisacodyl 10 Mg Supp) 10 mg [place] DAILY PRN PRN Reason: Constipation Stop: 03/06/21 21:47 Clonazepam (Clonazepam 0.5 Mg Tab) 0.5 mg PO HS SABA Stop: 03/06/21 20:59 Last Admin: 02/07/21 21:00 Dose: 0.5 mg Documented by: Docusate Sodium (Docusate Sodium 100 Mg Cap) 100 mg PO BID SABA Stop: 03/06/21 22:44 Last Admin: 02/08/21 07:52 Dose: 100 mg Documented by: Heparin Sodium (Porcine) (Heparin Sod 5,000 Unit/0.5 Ml Vial) 5,000 units SQ Q12 SABA Stop: 03/06/21 22:44 Last Admin: 02/08/21 07:53 Dose: 5,000 units Documented by: Hydromorphone HCl (Hydromorphone Inj 0.5 Mg/0.5 Ml Syr) 0.5 mg IV Q4H PRN PRN Reason: Pain or Pre PT Stop: 02/18/21 21:47 Last Admin: 02/05/21 12:40 Dose: 0.5 mg Documented by: Lorazepam (Ativan) 0.25 mg in 0.5 mls @ 0.5 mls/min IV PRN PRN PRN Reason: blood transfusion Stop: 03/07/21 12:25 Last Admin: 02/05/21 17:34 Dose: 0.5 mls/min Documented by: Cefazolin Sodium (Ancef 2000mg) 2,000 mg in 15 mls @ 3.75 mls/min IV Q8H SABA Stop: 03/21/21 17:59 Last Admin: 02/08/21 10:43 Dose: 3.75 mls/min Documented by: Magnesium Sulfate/Dextrose (Magnesium Sulfate / D5w) 1 gm in 100 mls @ 50 mls/hr IV ONE ONE Stop: 02/08/21 14:59 Levothyroxine Sodium (Levothyroxine Sodium 125 Mcg Tablet) 125 mcg PO DAILYBB SABA Stop: 03/07/21 06:29 Last Admin: 02/08/21 06:08 Dose: 125 mcg Documented by: Magnesium Hydroxide (Magnesium Hydroxide Susp 30 Ml Udc) 30 ml PO Q6H PRN PRN Reason: Constipation Stop: 03/06/21 21:47 Magnesium Oxide (Magnesium Oxide 400 Mg Tab) 400 mg PO BID SABA Stop: 03/09/21 20:59 Last Admin: 02/08/21 07:53 Dose: 400 mg Documented by: Melatonin (Melatonin 3 Mg Tab) 3 mg PO HSZ PRN; Protocol PRN Reason: Sleep Stop: 03/06/21 21:51 Last Admin: 02/06/21 23:05 Dose: 3 mg Documented by: Metoclopramide HCl (Metoclopramide Hcl Inj 5 Mg/Ml 2 Ml Vial) 10 mg IV Q6H PRN PRN Reason: Nausea And Vomiting Stop: 03/06/21 21:47 Metoprolol Tartrate (Metoprolol Tartrate 1 Mg/Ml Vial) 2.5 mg IV Q4H PRN PRN Reason: HR >120 Stop: 03/06/21 21:47 Naloxone HCl (Naloxone Hcl 0.4 Mg/1 Ml Vial/Carp) 0.1 mg IV Q5M PRN PRN Reason: Oversedation/Resp Depression Stop: 03/06/21 21:47 Ondansetron HCl (Ondansetron Inj 2 Mg/Ml 2 Ml Vial) 4 mg IV Q6H PRN PRN Reason: Nausea And Vomiting Stop: 03/06/21 21:47 Last Admin: 02/06/21 19:08 Dose: 4 mg Documented by: Oxycodone HCl (Oxycodone Hcl Ir 5 Mg Tab (Immediate Release)) 5 - 10 mg PO Q4H PRN PRN Reason: Pain or Pre PT Stop: 02/18/21 21:47 Last Admin: 02/07/21 00:03 Dose: 10 mg Documented by: Pantoprazole Sodium (Pantoprazole 40 Mg Tab) 40 mg PO BID SABA Stop: 03/06/21 22:14 Last Admin: 02/08/21 07:53 Dose: 40 mg Documented by: Sennosides (Senna 8.6 Mg Tab) 17.2 mg PO HS SABA Stop: 03/06/21 22:44 Last Admin: 02/07/21 20:58 Dose: 17.2 mg Documented by: Sertraline HCl (Sertraline Hcl 100 Mg Tablet) 100 mg PO HS SABA Stop: 03/06/21 22:14 Last Admin: 02/07/21 20:58 Dose: 100 mg Documented by: Tramadol HCl (Tramadol Hcl 50 Mg Tablet) 50 - 100 mg PO Q4H PRN PRN Reason: Pain & Pre PT Stop: 03/06/21 21:47 Last Admin: 02/08/21 07:53 Dose: 100 mg Documented by: (1) Fall Encounter type: initial encounter Qualified Code(s): W19.XXXA - Unspecified fall, initial encounter
[2021-02-08] MEDS ORDERED: MAGNESIUM SULFATE / D5W 1 GM/100 ML BAG IV ONE (13:00)
[2021-02-08] MEDS: ADVANCED PROBIOTIC 1250 MG CAPSULE PO SCH (13:48)
[2021-02-08] MEDS ORDERED: diphenhydrAMINE Capsule 25 MG CAP PO ONE (14:26)
[2021-02-08] MEDS: NAFCILLIN SODIUM 2,000 MG in DEXTROSE 5% 100 ML IV SCH ×2 (16:03→20:16)
[2021-02-08] MEDS: clonazePAM 0.5 MG TAB PO SCH (20:18)
[2021-02-08] MEDS: SENNA 8.6 MG TAB PO SCH (20:19)
[2021-02-08] MEDS: SERTRALINE HCL 100 MG TABLET PO SCH (20:19)
[2021-02-08] MEDS: HYDROmorphone INJ 0.5 MG/0.5 ML SYR IV PRN (23:54)
[2021-02-09] MEDS: NAFCILLIN SODIUM 2,000 MG in DEXTROSE 5% 100 ML IV SCH ×7 (00:55→23:45)
[2021-02-09] MEDS: LEVOTHYROXINE SODIUM 125 MCG TABLET PO SCH (06:03)
[2021-02-09 06:27] LABS: Hematocrit (blood only) 27.6 % (37-47); Hemoglobin 8.6 g/dL (12.0-16.0); Mean Corpuscular Hemoglobin 27.7 pg (25-34); Mean Corpuscular Hgb Conc 31.2 g/dL (32-36); Platelet Count 427 K/uL (130-400); RDW Coefficient of Variation 14.8 % (11.5-14.5); RDW Standard Deviation 48.2 fL (36.4-46.3); White Blood Count 14.08 K/uL (4.8-10.8)
[2021-02-09 07:09] LABS: BUN Creatinine Ratio 22.6 (10-20); Blood Urea Nitrogen 16 mg/dl (7-18); Calcium 9.6 mg/dl (8.5-10.1); Carbon Dioxide 27 mmol/L (21-32); Chloride 102 mmol/L (98-107); Creatinine Clr Calc Pharmacy 56.2 ml/min; Est GFR (African American) 91.3 ml/min; Est GFR (Non-African American) 78.8 ml/min; Glucose 103 mg/dl (70-99); Magnesium 1.8 mg/dl (1.8-2.4); Phosphorus 3.3 mg/dl (2.5-4.9); Potassium 4.2 mmol/L (3.5-5.1); Sodium 135 mmol/L (136-145)
[2021-02-09] MEDS: HEPARIN SOD 5,000 UNIT/0.5 ML VIAL SQ SCH ×2 (08:02→19:36)
[2021-02-09] MEDS: DOCUSATE SODIUM 100 MG CAP PO SCH ×2 (08:02→19:35)
[2021-02-09] MEDS: PANTOprazole 40 MG TAB PO SCH ×2 (08:02→19:35)
[2021-02-09] MEDS: ATENOLOL 25 MG TABLET PO SCH (08:02)
[2021-02-09] MEDS: ADVANCED PROBIOTIC 1250 MG CAPSULE PO SCH (08:02)
[2021-02-09] MEDS: MAGNESIUM OXIDE 400 MG TAB PO SCH ×2 (08:02→19:35)
[2021-02-09] MEDS: traMADol HCL 50 MG TABLET PO PRN ×2 (08:02→19:34)
[2021-02-09] MEDS: HYDROmorphone INJ 0.5 MG/0.5 ML SYR IV PRN (11:47)
--- NOTE | 2021-02-09 13:52 | Hospitalist Progress Note ---
Date of Service February 09, 2021 Assessment & Plan (1) Sepsis: (2) Infection: (3) Fall: (4) Acute kidney injury superimposed on chronic kidney disease: (5) PSVT (paroxysmal supraventricular tachycardia): (6) HTN (hypertension): (7) Hypothyroidism: (8) HLD (hyperlipidemia): (9) MERY (obstructive sleep apnea): Plan: Gram-positive bacteremia MSSA bacteremia Septic joint This is an 85yo F with a PMH of hypertension, hyperlipidemia, CKD III, hypoth yroidism and MERY not on CPAP who presents with worsening left lower extremity pain x4 days. Sepsis 2/2 left lower extremity infection in post-operative setting One month post-op s/p ORIF of left tibial plateau fracture by Dr. Smith [place] well initially but developed worsening pain, redness and swelling to the area over the past week. Was seen at ortho follow up and underwent Venous doppler of LLE that was negative for DVT Afebrile, HR 92, WBC 20.25 K, plt 546, ESR 87, CRP 41.90, procalcitonin 3.20, lactate 2.[address] Latif in ER - taken for emergent washout of wound (02/04) Patient tolerated procedure well, drainage and pus noted during procedure Joint aspiration, synovial fluid WBC > 238,000 Blood culture, February 04, positive for gram-positive cocci in clusters (MSSA) Repeat blood cultx -February 05, positive for gram-positive cocci 02/08 - repeated blood cultures S/p left knee I&D, hemovac applied (now hemovac removed) Started on empiric IV Vanco and Zosyn pre-op Pharmacy and ID consulted, daptomycin dose 500 IV daily initially , continued zosyn Given blood and synovial cultx - MSSA - switched Abx to cefazolin (02/07) Patient however developed light pink rash, and therefore cefazolin was changed to nafcillin 02/09-patient received Benadryl, however rash still present at lower abdomen and lower back and thighs Official ID consult pending Per ortho: PT/OT as ordered NWB left lower extremity Ice to left knee PRN pain/swelling Elevate left leg on pillows for swelling. Use walker to assist with gait/transfers Lovenox for DVT prophylaxis. Most likely will need nursing home IV antibiotics. Pain control, IV fluids, continued ortho care CT pelvis obtained - 1. No fracture is identified. 2. Question mild soft tissue contusions overlying the anterior iliac spine bilaterally. Correlate clinically. Fall at home In setting of LLE infection Fall precautions, PT/OT evaluation Patient lives at home with elderly Acute kidney injury superimposed on CKD III resolved Cr elevated at 1.7, baseline ~ 1 currently improved at ~1 In setting of sepsis, poor PO intake Continue IV fluids Daily BMP Acute blood loss anemia/status post fall and postoperative hemoglobin 7.6 on 02/05, received 1 unit of PRBCs Current Hgb 9.4 Hgb stable 02/06 - CT pelvis also ordered by the orthopedics, as above Continue to closely monitor H&H Sanguinous drainage noted in Hemovac, now hemovac removed Hypertension Continue atenolol Holding losartan in setting of MOSES cont. to monitor BP Hypokalemia, hypomagnesemia Replete and monitor Paroxysmal SVT Monitor on tele, continue atenolol Hypothyroidism Continue levothyroxine Depression Continue sertraline DVT Ppx: SQ heparin Code status: FULL PCP: Dr. Roe Dispo: Admitted to [facility]. Discharge planning ordered. Admission and Anticipated Discharge Date Admission Date: February 04, 2021 Subjective Patient seen in follow-up of bacteremia, septic joint Underwent I&D of her left knee w/ orthopedics Currently laying in bed, in NAD, awake and alert, has no complaints at this time Reports her left leg is feeling ok Denies any chest pain, shortness of breath, abdominal pain, nausea vomiting Antibiotics changed for MSSA -to cefazolin - however patient developed light pink rash, and antibiotics was changed to nafcillin, continues to have rash over her abdomen and thigh lower back Repeat blood culture, from February 05, positive Repeated blood cultures Review of Systems Review of Systems: All systems reviewed & are unremarkable except as noted in Subjective Physical Exam Physical Exam: General Appearance: elderly frail F lying in bed, in NAD Head: normocephalic, atraumatic Eyes: normal inspection, PERRL, EOMI, conjunctivae normal, anicteric sclerae ENT: external ear and nose normal, oropharynx normal Neck: normal visual inspection Respiratory: normal respiratory effort, lungs clear to auscultation, no wheeze, rales, rhonchi. No accessory muscle use Cardiovascular: regular rate, rhythm, no murmur, normal peripheral pulses Chest: normal inspection of chest Abdomen/GI: soft, nontender, + bowel sounds Extremities/Musculoskeletal: LLE in sulma wraps, no sensory loss noted, moves extremities Neurologic: PERRL, EOMI, no face palsy, no dysarthria, moves all extremities Psychiatric: awake and alert, able to answer simple questions without difficulty Skin: light pink rash over lower abdomen, lower back and thighs, warm/dry Results & Data Results & Data ([facility]) Vital Signs (Past 12 Hours) Vital Signs Temp Pulse Pulse Resp BP Pulse Ox 02/09/21 11:29 36.9 C 79 16 115/69 91 02/09/21 09:59 78 02/09/21 07:18 36.9 C 96 H 20 135/70 96 02/09/21 04:50 36.7 C 73 18 117/63 91 Laboratory Results 02/09/21 02/09/21 Range/Units 06:10 06:10 WBC 14.08 H (4.8-10.8) K/uL RBC 3.10 L (4.2-5.4) M/uL Hgb 8.6 L (12.0-16.0) g/dL Hct 27.6 L (37-47) % MCV 89.0 (80-100) fL MCH 27.7 (25-34) pg MCHC 31.2 L (32-36) g/dL RDW Std Deviation 48.2 H (36.4-46.3) fL RDW Coeff of Brandan 14.8 H (11.5-14.5) % Plt Count 427 H (130-400) K/uL MPV 9.0 (7.4-10.4) fL Sodium 135 L (136-145) mmol/L Potassium 4.2 (3.5-5.1) mmol/L Chloride 102 (98-107) mmol/L Carbon Dioxide 27 (21-32) mmol/L Anion Gap 6.0 (3-11) BUN 16 (7-18) mg/dl Creatinine 0.71 (0.6-1.2) mg/dl Est Cr Clr Drug Dosing 56.2 ml/min Est GFR ( Amer) 91.3 ml/min Est GFR (Non-Af Amer) 78.8 ml/min BUN/Creatinine Ratio 22.6 H (10-20) Glucose 103 H (70-99) mg/dl Calcium 9.6 (8.5-10.1) mg/dl Phosphorus 3.3 (2.5-4.9) mg/dl Magnesium 1.8 (1.8-2.4) mg/dl Specimen Hemolysis [facility] Medications Administered Current Inpatient Medications Acetaminophen (Acetaminophen 500 Mg Tab) 1,000 mg PO Q8 PRN PRN Reason: Moderate Pain Stop: 03/06/21 21:47 Atenolol (Atenolol 25 Mg Tablet) 25 mg PO DAILY SABA Stop: 03/07/21 08:59 Last Admin: 02/09/21 08:02 Dose: 25 mg Documented by: Bisacodyl (Bisacodyl 10 Mg Supp) 10 mg [place] DAILY PRN PRN Reason: Constipation Stop: 03/06/21 21:47 Clonazepam (Clonazepam 0.5 Mg Tab) 0.5 mg PO HS SABA Stop: 03/06/21 20:59 Last Admin: 02/08/21 20:18 Dose: 0.5 mg Documented by: Docusate Sodium (Docusate Sodium 100 Mg Cap) 100 mg PO BID [facility] Stop: 03/06/21 22:44 Last Admin: 02/09/21 08:02 Dose: 100 mg Documented by: Heparin Sodium (Porcine) (Heparin Sod 5,000 Unit/0.5 Ml Vial) 5,000 units SQ Q12 SABA Stop: 03/06/21 22:44 Last Admin: 02/09/21 08:02 Dose: 5,000 units Documented by: Hydromorphone HCl (Hydromorphone Inj 0.5 Mg/0.5 Ml Syr) 0.5 mg IV Q4H PRN PRN Reason: Pain or Pre PT Stop: 02/18/21 21:47 Last Admin: 02/09/21 11:47 Dose: 0.5 mg Documented by: Lorazepam (Ativan) 0.25 mg in 0.5 mls @ 0.5 mls/min IV PRN PRN PRN Reason: blood transfusion Stop: 03/07/21 12:25 Last Admin: 02/05/21 17:34 Dose: 0.5 mls/min Documented by: Nafcillin Sodium 2,000 mg/ (Dextrose) 108 mls @ 100 mls/hr IV Q4 SABA; Protocol Stop: 03/22/21 15:59 Last Infusion: 02/09/21 12:56 Dose: Infused Documented by: Lactobacillus Acidoph/Casei/Rhamnos (Advanced Probiotic 1250 Mg Capsule) 2 cap PO DAILY [facility] Stop: 03/10/21 13:29 Last Admin: 02/09/21 08:02 Dose: 2 cap Documented by: Levothyroxine Sodium (Levothyroxine Sodium 125 Mcg Tablet) 125 mcg PO DAILYBB [facility] Stop: 03/07/21 06:29 Last Admin: 02/09/21 06:03 Dose: 125 mcg Documented by: Magnesium Hydroxide (Magnesium Hydroxide Susp 30 Ml Udc) 30 ml PO Q6H PRN PRN Reason: Constipation Stop: 03/06/21 21:47 Magnesium Oxide (Magnesium Oxide 400 Mg Tab) 400 mg PO BID [facility] Stop: 03/09/21 20:59 Last Admin: 02/09/21 08:02 Dose: 400 mg Documented by: Melatonin (Melatonin 3 Mg Tab) 3 mg PO HSZ PRN; Protocol PRN Reason: Sleep Stop: 03/06/21 21:51 Last Admin: 02/06/21 23:05 Dose: 3 mg Documented by: Metoclopramide HCl (Metoclopramide Hcl Inj 5 Mg/Ml 2 Ml Vial) 10 mg IV Q6H PRN PRN Reason: Nausea And Vomiting Stop: 03/06/21 21:47 Metoprolol Tartrate (Metoprolol Tartrate 1 Mg/Ml Vial) 2.5 mg IV Q4H PRN PRN Reason: HR >120 Stop: 03/06/21 21:47 Naloxone HCl (Naloxone Hcl 0.4 Mg/1 Ml Vial/Carp) 0.1 mg IV Q5M PRN PRN Reason: Oversedation/Resp Depression Stop: 03/06/21 21:47 Ondansetron HCl (Ondansetron Inj 2 Mg/Ml 2 Ml Vial) 4 mg IV Q6H PRN PRN Reason: Nausea And Vomiting Stop: 03/06/21 21:47 Last Admin: 02/06/21 19:08 Dose: 4 mg Documented by: Oxycodone HCl (Oxycodone Hcl Ir 5 Mg Tab (Immediate Release)) 5 - 10 mg PO Q4H PRN PRN Reason: Pain or Pre PT Stop: 02/18/21 21:47 Last Admin: 02/07/21 00:03 Dose: 10 mg Documented by: Pantoprazole Sodium (Pantoprazole 40 Mg Tab) 40 mg PO BID SABA Stop: 03/06/21 22:14 Last Admin: 02/09/21 08:02 Dose: 40 mg Documented by: Sennosides (Senna 8.6 Mg Tab) 17.2 mg PO HS SABA Stop: 03/06/21 22:44 Last Admin: 02/08/21 20:19 Dose: 17.2 mg Documented by: Sertraline HCl (Sertraline Hcl 100 Mg Tablet) 100 mg PO HS SABA Stop: 03/06/21 22:14 Last Admin: 02/08/21 20:19 Dose: 100 mg Documented by: Tramadol HCl (Tramadol Hcl 50 Mg Tablet) 50 - 100 mg PO Q4H PRN PRN Reason: Pain & Pre PT Stop: 03/06/21 21:47 Last Admin: 02/09/21 08:02 Dose: 100 mg Documented by: (1) Fall Encounter type: initial encounter Qualified Code(s): W19.XXXA - Unspecified fall, initial encounter
[2021-02-09] MEDS: MELATONIN 3 MG TAB PO PRN (19:34)
[2021-02-09] MEDS: clonazePAM 0.5 MG TAB PO SCH (19:34)
[2021-02-09] MEDS: SERTRALINE HCL 100 MG TABLET PO SCH (19:35)
[2021-02-09] MEDS: SENNA 8.6 MG TAB PO SCH (19:36)
[2021-02-10] MEDS: NAFCILLIN SODIUM 2,000 MG in DEXTROSE 5% 100 ML IV SCH ×5 (03:25→19:27)
[2021-02-10] MEDS: LEVOTHYROXINE SODIUM 125 MCG TABLET PO SCH (05:49)
[2021-02-10] MEDS ORDERED: diphenhydrAMINE Capsule 25 MG CAP PO ONE (07:41)
--- NOTE | 2021-02-10 07:47 | Hospitalist Progress Note ---
Date of Service February 10, 2021 Assessment & Plan (1) Sepsis: (2) Infection: (3) Fall: (4) Acute kidney injury superimposed on chronic kidney disease: (5) PSVT (paroxysmal supraventricular tachycardia): (6) HTN (hypertension): (7) Hypothyroidism: (8) HLD (hyperlipidemia): (9) MERY (obstructive sleep apnea): Plan: Gram-positive bacteremia MSSA bacteremia Septic joint This is an 85yo F with a PMH of hypertension, hyperlipidemia, CKD III, hypoth yroidism and MERY not on CPAP who presents with worsening left lower extremity pain x4 days. Sepsis 2/2 left lower extremity infection in post-operative setting One month post-op s/p ORIF of left tibial plateau fracture by Dr. Smith [place] well initially but developed worsening pain, redness and swelling to the area over the past week. Was seen at ortho follow up and underwent Venous doppler of LLE that was negative for DVT Afebrile, HR 92, WBC 20.25 K, plt 546, ESR 87, CRP 41.90, procalcitonin 3.20, lactate 2.[address] Latif in ER - taken for emergent washout of wound (02/04) Patient tolerated procedure well, drainage and pus noted during procedure Joint aspiration, synovial fluid WBC > 238,000 Blood culture, February 04, positive for gram-positive cocci in clusters (MSSA) Repeat blood cultx -February 05, positive for gram-positive cocci 02/08 - repeated blood cultures - negative for 48 hrs S/p left knee I&D, hemovac applied (now hemovac removed) Started on empiric IV Vanco and Zosyn pre-op Pharmacy and ID consulted, daptomycin dose 500 IV daily initially , continued zosyn Given blood and synovial cultx - MSSA - switched Abx to cefazolin (02/07) Patient however developed light pink rash, and therefore cefazolin was changed to nafcillin (after discussing w/ pharmacy) 02/09-patient received Benadryl, however rash still present at lower abdomen and lower back and thighs Official ID consult obtained (02/11) -initial recommendation is cefazolin however I discussed with ID physician her rash, and therefore switched to daptomycin Echo ordered given persistent bacteremia - currently pending Per ortho: PT/OT as ordered NWB left lower extremity Ice to left knee PRN pain/swelling Elevate left leg on pillows for swelling. Use walker to assist with gait/transfers Lovenox for DVT prophylaxis. Most likely will need usp IV antibiotics. Pain control, IV fluids, continued ortho care CT pelvis obtained - 1. No fracture is identified. 2. Question mild soft tissue contusions overlying the anterior iliac spine bilaterally. Correlate clinically. Fall at home In setting of LLE infection Fall precautions, PT/OT evaluation Patient lives at home with elderly Acute kidney injury superimposed on CKD III resolved Cr elevated at 1.7, baseline ~ 1 then improved at ~1, however Cr now elevated again at 1.7 In setting of sepsis, poor PO intake Restart IV fluids Daily BMP Acute blood loss anemia/status post fall and postoperative hemoglobin 7.6 on 02/05, received 1 unit of PRBCs repeat Hgb 9.4 Hgb stable 02/06 - CT pelvis also ordered by the orthopedics, as above Continue to closely monitor H&H Sanguinous drainage noted in Hemovac, now hemovac removed Hypertension Continue atenolol Holding losartan in setting of MOSES cont. to monitor BP Hypokalemia, hypomagnesemia Replete and monitor Paroxysmal SVT Monitor on tele, continue atenolol Hypothyroidism Continue levothyroxine Depression Continue sertraline DVT Ppx: SQ heparin Code status: FULL PCP: Dr. Roe Dispo: Admitted to [facility]. Discharge planning ordered. Admission and Anticipated Discharge Date Admission Date: February 04, 2021 Subjective Patient seen in follow-up of bacteremia, septic joint Underwent I&D of her left knee w/ orthopedics Currently laying in bed, in NAD, awake but slightly confused, has no complaints at this time Denies any chest pain, shortness of breath, abdominal pain, nausea vomiting Denies any significant lower extremity pain ID consulted - able to eval today Patient developed light pink rash on her abdomen, thighs, lower back, likely drug rash, on cefazolin/nafcillin, discussed with ID switch to daptomycin Review of Systems Review of Systems: All systems reviewed & are unremarkable except as noted in Subjective Physical Exam Physical Exam: General Appearance: elderly frail F lying in bed, in NAD Head: normocephalic, atraumatic Eyes: normal inspection, PERRL, EOMI, conjunctivae normal, anicteric sclerae ENT: external ear and nose normal, oropharynx normal Neck: normal visual inspection Respiratory: normal respiratory effort, lungs clear to auscultation, no wheeze, rales, rhonchi. No accessory muscle use Cardiovascular: regular rate, rhythm, no murmur, normal peripheral pulses Chest: normal inspection of chest Abdomen/GI: soft, nontender, + bowel sounds Extremities/Musculoskeletal: LLE in sulma wraps, no sensory loss noted, moves extremities Neurologic: PERRL, EOMI, no face palsy, no dysarthria, moves all extremities Psychiatric: awake and alert, able to answer simple questions without difficulty, however she is little confused Skin: light pink rash over lower abdomen, lower back and thighs, warm/dry Results & Data Results & Data ([facility]) Vital Signs (Past 12 Hours) Vital Signs Temp Pulse Pulse Resp BP Pulse Ox 02/10/21 04:17 36.9 C 85 16 102/63 90 02/09/21 23:38 36.4 C L 80 18 104/57 L 90 02/09/21 22:20 78 Medications Administered Current Inpatient Medications Acetaminophen (Acetaminophen 500 Mg Tab) 1,000 mg PO Q8 PRN PRN Reason: Moderate Pain Stop: 03/06/21 21:47 Atenolol (Atenolol 25 Mg Tablet) 25 mg PO DAILY SABA Stop: 03/07/21 08:59 Last Admin: 02/10/21 08:39 Dose: Not Given Documented by: Bisacodyl (Bisacodyl 10 Mg Supp) 10 mg [place] DAILY PRN PRN Reason: Constipation Stop: 03/06/21 21:47 Clonazepam (Clonazepam 0.5 Mg Tab) 0.5 mg PO HS SABA Stop: 03/06/21 20:59 Last Admin: 02/09/21 19:34 Dose: 0.5 mg Documented by: Diphenhydramine HCl (Diphenhydramine Capsule 25 Mg Cap) 25 mg PO Q4H PRN PRN Reason: Rash Stop: 03/12/21 07:47 Docusate Sodium (Docusate Sodium 100 Mg Cap) 100 mg PO BID SABA Stop: 03/06/21 22:44 Last Admin: 02/10/21 21:29 Dose: Not Given Documented by: Heparin Sodium (Porcine) (Heparin Sod 5,000 Unit/0.5 Ml Vial) 5,000 units SQ Q12 SABA Stop: 03/06/21 22:44 Last Admin: 02/10/21 21:48 Dose: Not Given Documented by: Hydromorphone HCl (Hydromorphone Inj 0.5 Mg/0.5 Ml Syr) 0.25 mg IV Q4H PRN PRN Reason: Pain or Pre PT Stop: 02/18/21 21:47 Last Admin: 02/11/21 01:21 Dose: 0.25 mg Documented by: Lorazepam (Ativan) 0.25 mg in 0.5 mls @ 0.5 mls/min IV PRN PRN PRN Reason: blood transfusion Stop: 03/07/21 12:25 Last Admin: 02/05/21 17:34 Dose: 0.5 mls/min Documented by: Famotidine 20 mg/ Syringe 5 mls @ 2.5 mls/min IV BID SABA Stop: 03/12/21 08:59 Last Admin: 02/11/21 09:23 Dose: 2.5 mls/min Documented by: Sodium Chloride (Nss 1000ml) 1,000 mls @ 100 mls/hr IV .Q10H SABA Stop: 03/12/21 16:44 Last Infusion: 02/10/21 21:14 Dose: 0 mls/hr Documented by: Daptomycin 350 mg/ Syringe 7 mls @ 3.5 mls/min IV Q2D@1700 SABA; Protocol Stop: 02/24/21 16:59 Last Admin: 02/10/21 17:23 Dose: 3.5 mls/min Documented by: Lactobacillus Acidoph/Casei/Rhamnos (Advanced Probiotic 1250 Mg Capsule) 2 cap PO DAILY SABA Stop: 03/10/21 13:29 Last Admin: 02/10/21 08:39 Dose: Not Given Documented by: Levothyroxine Sodium (Levothyroxine Sodium 125 Mcg Tablet) 125 mcg PO DAILYBB SABA Stop: 03/07/21 06:29 Last Admin: 02/11/21 05:11 Dose: 125 mcg Documented by: Magnesium Hydroxide (Magnesium Hydroxide Susp 30 Ml Udc) 30 ml PO Q6H PRN PRN Reason: Constipation Stop: 03/06/21 21:47 Magnesium Oxide (Magnesium Oxide 400 Mg Tab) 400 mg PO BID SABA Stop: 03/09/21 20:59 Last Admin: 02/10/21 21:29 Dose: Not Given Documented by: Melatonin (Melatonin 3 Mg Tab) 3 mg PO HSZ PRN; Protocol PRN Reason: Sleep Stop: 03/06/21 21:51 Last Admin: 02/09/21 19:34 Dose: 3 mg Documented by: Metoprolol Tartrate (Metoprolol Tartrate 1 Mg/Ml Vial) 2.5 mg IV Q4H PRN PRN Reason: HR >120 Stop: 03/06/21 21:47 Miscellaneous Information (Daptomycin Consult Active) 1 ea N/A UD PRN PRN Reason: Consult Stop: 03/12/21 16:58 Naloxone HCl (Naloxone Hcl 0.4 Mg/1 Ml Vial/Carp) 0.1 mg IV Q5M PRN PRN Reason: Oversedation/Resp Depression Stop: 03/06/21 21:47 Olanzapine (Olanzapine 10 Mg/2.1 Ml Sdv) 2.5 mg IM Q4H PRN PRN Reason: Anxiety/Agitation Stop: 03/12/21 20:52 Last Admin: 02/11/21 05:01 Dose: 2.5 mg Documented by: Ondansetron HCl (Ondansetron Inj 2 Mg/Ml 2 Ml Vial) 4 mg IV Q6H PRN PRN Reason: Nausea And Vomiting Stop: 03/06/21 21:47 Last Admin: 02/06/21 19:08 Dose: 4 mg Documented by: Oxycodone HCl (Oxycodone Hcl Ir 5 Mg Tab (Immediate Release)) 5 - 10 mg PO Q4H PRN PRN Reason: Pain or Pre PT Stop: 02/18/21 21:47 Last Admin: 02/07/21 00:03 Dose: 10 mg Documented by: Pantoprazole Sodium (Pantoprazole 40 Mg Tab) 40 mg PO BID SABA Stop: 03/06/21 22:14 Last Admin: 02/10/21 21:29 Dose: Not Given Documented by: Sennosides (Senna 8.6 Mg Tab) 17.2 mg PO HS SABA Stop: 03/06/21 22:44 Last Admin: 02/10/21 21:29 Dose: Not Given Documented by: Sertraline HCl (Sertraline Hcl 100 Mg Tablet) 100 mg PO HS SABA Stop: 03/06/21 22:14 Last Admin: 02/10/21 21:30 Dose: Not Given Documented by: Tramadol HCl (Tramadol Hcl 50 Mg Tablet) 25 mg PO Q4H PRN PRN Reason: Pain & Pre PT Stop: 03/06/21 21:47 Last Admin: 02/11/21 06:26 Dose: 25 mg Documented by: (1) Fall Encounter type: initial encounter Qualified Code(s): W19.XXXA - Unspecified fall, initial encounter
[2021-02-10 08:23] LABS: Hematocrit (blood only) 26.3 % (37-47); Hemoglobin 8.2 g/dL (12.0-16.0); Mean Corpuscular Hemoglobin 27.8 pg (25-34); Mean Corpuscular Hgb Conc 31.2 g/dL (32-36); Mean Corpuscular Volume 89.2 fL (80-100); Mean Platelet Volume 8.5 fL (7.4-10.4); Platelet Count 568 K/uL (130-400); RDW Coefficient of Variation 15.1 % (11.5-14.5); RDW Standard Deviation 49.4 fL (36.4-46.3); Red Blood Count 2.95 M/uL (4.2-5.4); White Blood Count 15.69 K/uL (4.8-10.8)
[2021-02-10] MEDS: MAGNESIUM OXIDE 400 MG TAB PO SCH ×2 (08:39→21:29)
[2021-02-10] MEDS: HEPARIN SOD 5,000 UNIT/0.5 ML VIAL SQ SCH ×2 (08:39→21:48)
[2021-02-10] MEDS: ATENOLOL 25 MG TABLET PO SCH (08:39)
[2021-02-10] MEDS: ADVANCED PROBIOTIC 1250 MG CAPSULE PO SCH (08:39)
[2021-02-10] MEDS: DOCUSATE SODIUM 100 MG CAP PO SCH ×2 (08:39→21:29)
[2021-02-10] MEDS: PANTOprazole 40 MG TAB PO SCH ×2 (08:39→21:29)
[2021-02-10 10:00] LABS: Calcium 9.6 mg/dl (8.5-10.1); Creatinine Clr Calc Pharmacy 24.9 ml/min; Est GFR (African American) 34.2 ml/min; Est GFR (Non-African American) 29.5 ml/min; Phosphorus 3.7 mg/dl (2.5-4.9); Potassium 3.8 mmol/L (3.5-5.1)
[2021-02-10] MEDS: FAMOTIDINE 20 MG in SYRINGE 3 ML IV SCH ×2 (10:22→22:03)
[2021-02-10] MEDS: HYDROmorphone INJ 0.5 MG/0.5 ML SYR IV PRN ×2 (15:43→20:29)
[2021-02-10] MEDS ORDERED: SODIUM CHLORIDE 0.9% 1000ML 1,000 ML IV SCH (16:45)
--- NOTE | 2021-02-10 17:06 | Orthopedic Progress Note ---
Date of Service February 10, 2021 Assessment & Plan (1) Post-operative infection: Plan: POD # 6 s/p I&D L knee (Dr. Latif), 4 weeks s/p ORIF L Tibial plateau (Dr. Smith) Continue nonweightbearing status. Apply 4x4's and abds over the wound daily, large maricruz wrap from toes to mid thich. Change daily after showering. PT/OT to work on knee ROM, straight leg raises, quad sets etc. Continue IV antibiotics per primary service. Admission and Anticipated Discharge Date Admission Date: February 04, 2021 Subjective Patient has been delirious, pulling out IV and removing her dressing. Believes her is next to her. When instructed that she needs to move her knee, she says "that's just the way it's going to be." No fevers/chills. Physical Exam Physical Exam: Alert, but confused. Thinks her is sitting next to her even though she is the only other person in the room. L knee: incision healing well. No significant redness. Slight serous drainage in the distal wound. She does have some edema distal to the MARICRUZ wrap around her knee. Knee ROM limited actively and passively about 10-45 degrees. NVI. Results & Data ([facility]) Vital Signs (Past 12 Hours) Vital Signs Temp Pulse Pulse Resp BP Pulse Ox 02/10/21 16:16 36.8 C 84 18 100/62 92 02/10/21 15:56 89 02/10/21 11:51 37.0 C 80 18 112/67 93 02/10/21 07:59 78 02/10/21 07:51 36.8 C 78 18 111/66 92 (1) Post-operative infection Encounter type: initial encounter Postoperative infection type: unspecified type Qualified Code(s): T81.40XA - Infection following a procedure, unspecified, initial encounter
[2021-02-10] MEDS: DAPTOmycin 350 MG in SYRINGE 0 ML IV SCH (17:23)
[2021-02-10] MEDS ORDERED: OLANZapine 10 MG/2.1 ML SDV IM STA (20:53)
[2021-02-10] MEDS ORDERED: MAGNESIUM SULFATE / D5W 1 GM/100 ML BAG IV ONE (21:15)
[2021-02-10] MEDS: ALBUMIN 25% 12.5 GM/50 ML VIAL IV SCH ×2 (21:29→22:09)
[2021-02-10] MEDS: SENNA 8.6 MG TAB PO SCH (21:29)
[2021-02-10] MEDS: SERTRALINE HCL 100 MG TABLET PO SCH (21:30)
[2021-02-10 23:02] LABS: Appearance Urine Turbid (Clear); Bacteria Urine Automated Negative (Negative); Bilirubin Urine Negative (Negative); Blood Urine 1+ (Negative); Color Urine Dark Yellow; Epithelial Cell Urine Auto >30 /lpf (0-5); Glucose Urine UA Negative (Negative); Ketones Urine Trace (Negative); Leukocyte Esterase Urine 2+ (Negative); Nitrite Urine Negative (Negative); Protein Urine 1+ (Negative); Specific Gravity Urine 1.019 (1.000-1.030); Urobilinogen Urine Negative (Negative); WBC Urine Automated >30 /hpf (0-5); pH Urine 5.5 (4.5-7.5)
[2021-02-10 23:47] LABS: Cast Urine Automated 0 /lpf (0-5); RBC Urine Automated 0-4 /hpf (0-4)
[2021-02-11] MEDS: HYDROmorphone INJ 0.5 MG/0.5 ML SYR IV PRN ×2 (01:21→21:56)
[2021-02-11] MEDS: OLANZapine 10 MG/2.1 ML SDV IM PRN ×2 (05:01→11:50)
[2021-02-11] MEDS: LEVOTHYROXINE SODIUM 125 MCG TABLET PO SCH (05:11)
[2021-02-11] MEDS: traMADol HCL 50 MG TABLET PO PRN ×2 (06:26→11:12)
[2021-02-11 06:57] LABS: Hematocrit (blood only) 27.1 % (37-47); Hemoglobin 8.4 g/dL (12.0-16.0); Mean Corpuscular Hemoglobin 27.5 pg (25-34); Mean Corpuscular Volume 88.9 fL (80-100); Mean Platelet Volume 8.5 fL (7.4-10.4); Platelet Count 684 K/uL (130-400); RDW Coefficient of Variation 15.1 % (11.5-14.5); RDW Standard Deviation 49.2 fL (36.4-46.3); Red Blood Count 3.05 M/uL (4.2-5.4)
[2021-02-11 07:31] LABS: BUN Creatinine Ratio 10.2 (10-20); Calcium 9.7 mg/dl (8.5-10.1); Creatinine Clr Calc Pharmacy 18.4 ml/min; Est GFR (African American) 23.6 ml/min; Est GFR (Non-African American) 20.4 ml/min; Magnesium 2.2 mg/dl (1.8-2.4); Potassium 3.5 mmol/L (3.5-5.1)
[2021-02-11] MEDS ORDERED: POTASSIUM CHLORIDE CRTAB 20 MEQ TABCR PO STA ×2 (07:41→10:32)
[2021-02-11] MEDS: FAMOTIDINE 20 MG in SYRINGE 3 ML IV SCH ×2 (09:23→20:33)
--- NOTE | 2021-02-11 09:23 | XRay Report ---
XR chest 1V portable HISTORY: 85 years-old Female renal failure acute renal failure COMPARISON: Chest radiograph 02/04/2021 TECHNIQUE: Portable AP view of the chest FINDINGS: Cardiomegaly. Similar widening of the mediastinum. Mild pulmonary vascular congestion. Chronic inters titial coarsening of the lung bases. No pneumothorax, large pleural effusion or lobar airspace consol idation. Surgical clips project over the neck. Degenerative changes of the shoulders and spine. Hiata l hernia. IMPRESSION: 1. Cardiomegaly with pulmonary vascular congestion. 2. Hiatal hernia. ACT 112: Negative or not required by law. The above report was generated using voice recognition software. It may contain grammatical, syntax o r spelling errors. Electronically signed by: Fabricio Desouza M.D. 02/11/2021 9:21 AM
--- NOTE | 2021-02-11 10:31 | Hospitalist Progress Note ---
Date of Service February 11, 2021 Assessment & Plan (1) Sepsis: (2) Infection: (3) Fall: (4) Acute kidney injury superimposed on chronic kidney disease: (5) PSVT (paroxysmal supraventricular tachycardia): (6) HTN (hypertension): (7) Hypothyroidism: (8) HLD (hyperlipidemia): (9) MERY (obstructive sleep apnea): Plan: Gram-positive bacteremia MSSA bacteremia Septic joint This is an 85yo F with a PMH of hypertension, hyperlipidemia, CKD III, hypoth yroidism and MERY not on CPAP who presents with worsening left lower extremity pain x4 days. Sepsis 2/2 left lower extremity infection in post-operative setting One month post-op s/p ORIF of left tibial plateau fracture by Dr. Smith Drury well initially but developed worsening pain, redness and swelling to the area over the past week. Was seen at ortho follow up and underwent Venous doppler of LLE that was negative for DVT Afebrile, HR 92, WBC 20.25 K, plt 546, ESR 87, CRP 41.90, procalcitonin 3.20, lactate 2.[address] Latif in ER - taken for emergent washout of wound (02/04) Patient tolerated procedure well, drainage and pus noted during procedure Joint aspiration, synovial fluid WBC > 238,000 Blood culture, February 04, positive for gram-positive cocci in clusters (MSSA) Repeat blood cultx -February 05, positive for gram-positive cocci 02/08 - repeated blood cultures - negative for 48 hrs S/p left knee I&D, hemovac applied (now hemovac removed) Started on empiric IV Vanco and Zosyn pre-op Pharmacy and ID consulted, daptomycin dose 500 IV daily initially , continued zosyn Given blood and synovial cultx - MSSA - switched Abx to cefazolin (02/07) Patient however developed light pink rash, and therefore cefazolin was changed to nafcillin (after discussing w/ pharmacy) 02/09-patient received Benadryl, however rash still present at lower abdomen and lower back and thighs Official ID consult obtained (02/11) -initial recommendation is cefazolin however I discussed with ID physician her rash, and therefore switched to daptomycin Echo ordered given persistent bacteremia - currently pending Per ortho: PT/OT as ordered NWB left lower extremity Ice to left knee PRN pain/swelling Elevate left leg on pillows for swelling. Use walker to assist with gait/transfers Lovenox for DVT prophylaxis. Most likely will need skilled nursing IV antibiotics. Pain control, IV fluids, continued ortho care CT pelvis obtained - 1. No fracture is identified. 2. Question mild soft tissue contusions overlying the anterior iliac spine bilaterally. Correlate clinically. Fall at home In setting of LLE infection Fall precautions, PT/OT evaluation Patient lives at home with elderly Acute kidney injury superimposed on CKD III resolved Cr elevated at 1.7, baseline ~ 1 then improved at ~1, however Cr now elevated again at 1.6 -> 2.1 In setting of sepsis, poor PO intake Restarted IV fluids - however some pulm. congestion developed on CXR will stop IVF and will discuss w/ nephrology Daily BMP Acute blood loss anemia/status post fall and postoperative hemoglobin 7.6 on 02/05, received 1 unit of PRBCs Hgb stable 02/06 - CT pelvis also ordered by the orthopedics, as above Continue to closely monitor H&H Sanguinous drainage noted in Hemovac, now hemovac removed Hypertension Continue atenolol Holding losartan in setting of MOSES cont. to monitor BP Hypokalemia, hypomagnesemia Replete and monitor Paroxysmal SVT Monitor on tele, continue atenolol Hypothyroidism Continue levothyroxine Depression Continue sertraline DVT Ppx: SQ heparin Code status: FULL PCP: Dr. Roe Dispo: Admitted to [facility]. Discharge planning ordered. Admission and Anticipated Discharge Date Admission Date: February 04, 2021 Subjective Patient seen in follow-up of bacteremia, septic joint Underwent I&D of her left knee w/ orthopedics Last evening patient more confused, agitated. Received Zyprexa by movie shot camera operator. IV fluids were held and albumin given. Chest x-ray ordered by patrick however not done in the evening. Asked to have chest x-ray done this a.m. soon as possible. Currently sitting up in bed, in NAD, awake but slightly confused, has no complaints at this time Denies any chest pain, shortness of breath, abdominal pain, nausea vomiting Denies any significant lower extremity pain Per nursing staff, patient was again agitated, earlier today, and received Zyprexa around 11 AM Continue to closely monitor Antibiotics changed to daptomycin Review of Systems Review of Systems: All systems reviewed & are unremarkable except as noted in Subjective Physical Exam Physical Exam: General Appearance: elderly frail F sitting up in bed, in NAD, but confused at this time Head: normocephalic, atraumatic Eyes: normal inspection, PERRL, EOMI, conjunctivae normal, anicteric sclerae ENT: external ear and nose normal, oropharynx normal Neck: normal visual inspection Respiratory: normal respiratory effort, lungs clear to auscultation, no wheeze, rales, rhonchi. No accessory muscle use Cardiovascular: regular rate, rhythm, no murmur, normal peripheral pulses Chest: normal inspection of chest Abdomen/GI: soft, nontender, + bowel sounds Extremities/Musculoskeletal: LLE in sulma wraps, no sensory loss noted, moves extremities Neurologic: PERRL, EOMI, no face palsy, moves all extremities Psychiatric: awake and alert, able to answer simple questions however she is confused (also received zyprexa earlier) Skin: light pink rash over lower abdomen, lower back and thighs (seems improved), warm/dry Results & Data Results & Data ([facility]) Vital Signs (Past 12 Hours) Vital Signs Temp Pulse Pulse Resp BP BP Pulse Ox 02/11/21 08:45 81 02/11/21 07:42 36.9 C 84 16 136/67 92 02/11/21 04:00 36.8 C 99 H 18 143/68 H 02/11/21 01:02 102 H 02/10/21 23:13 36.7 C 71 20 118/68 95 Laboratory Results 02/11/21 02/11/21 02/10/21 Range/Units 05:55 05:55 10:11 WBC 14.50 H (4.8-10.8) K/uL RBC 3.05 L (4.2-5.4) M/uL Hgb 8.4 L (12.0-16.0) g/dL Hct 27.1 L (37-47) % MCV 88.9 (80-100) fL MCH 27.5 (25-34) pg MCHC 31.0 L (32-36) g/dL RDW Std Deviation 49.2 H (36.4-46.3) fL RDW Coeff of Brandan 15.1 H (11.5-14.5) % Plt Count 684 H (130-400) K/uL MPV 8.5 (7.4-10.4) fL Sodium 136 (136-145) mmol/L Potassium 3.5 (3.5-5.1) mmol/L Chloride 102 (98-107) mmol/L Carbon Dioxide 23 (21-32) mmol/L Anion Gap 11.0 (3-11) BUN 22 H (7-18) mg/dl Creatinine 2.17 H D (0.6-1.2) mg/dl Est Cr Clr Drug Dosing 18.4 ml/min Est GFR ( Amer) 23.6 ml/min Est GFR (Non-Af Amer) 20.4 ml/min BUN/Creatinine Ratio 10.2 (10-20) Glucose 76 (70-99) mg/dl Calcium 9.7 (8.5-10.1) mg/dl Magnesium 2.2 (1.8-2.4) mg/dl TSH (0.300-4.500) uIu/ml Urine Color Dark Yellow Urine Appearance Turbid A (Clear) Urine pH 5.5 (4.5-7.5) Ur Specific [place] 1.019 (1.000-1.030) Urine Protein 1+ H (Negative) Urine Glucose (UA) Negative (Negative) Urine Ketones Trace H (Negative) Urine Blood 1+ H (Negative) Urine Nitrite Negative (Negative) Urine Bilirubin Negative (Negative) Urine Urobilinogen Negative (Negative) Ur Leukocyte Esterase 2+ H (Negative) Urine WBC (Auto) >30 H (0-5) /hpf Urine RBC (Auto) 0-4 (0-4) /hpf U Hyaline Cast (Auto) 0 (0-5) /lpf U Epithel Cells (Auto) >30 H (0-5) /lpf Urine Bacteria (Auto) Negative (Negative) Urine Yeast Budding A (None Prsent) 02/10/21 Range/Units 08:57 WBC (4.8-10.8) K/uL RBC (4.2-5.4) M/uL Hgb (12.0-16.0) g/dL Hct (37-47) % MCV (80-100) fL MCH (25-34) pg MCHC (32-36) g/dL RDW Std Deviation (36.4-46.3) fL RDW Coeff of Brandan (11.5-14.5) % Plt Count (130-400) K/uL MPV (7.4-10.4) fL Sodium (136-145) mmol/L Potassium (3.5-5.1) mmol/L Chloride (98-107) mmol/L Carbon Dioxide (21-32) mmol/L Anion Gap (3-11) BUN (7-18) mg/dl Creatinine (0.6-1.2) mg/dl Est Cr Clr Drug Dosing ml/min Est GFR ( Amer) ml/min Est GFR (Non-Af Amer) ml/min BUN/Creatinine Ratio (10-20) Glucose (70-99) mg/dl Calcium (8.5-10.1) mg/dl Magnesium (1.8-2.4) mg/dl TSH 1.800 (0.300-4.500) uIu/ml Urine Color Urine Appearance (Clear) Urine pH (4.5-7.5) Ur Specific [place] (1.000-1.030) Urine Protein (Negative) Urine Glucose (UA) (Negative) Urine Ketones (Negative) Urine Blood (Negative) Urine Nitrite (Negative) Urine Bilirubin (Negative) Urine Urobilinogen (Negative) Ur Leukocyte Esterase (Negative) Urine WBC (Auto) (0-5) /hpf Urine RBC (Auto) (0-4) /hpf U Hyaline Cast (Auto) (0-5) /lpf U Epithel Cells (Auto) (0-5) /lpf Urine Bacteria (Auto) (Negative) Urine Yeast (None Prsent) Medications Administered Current Inpatient Medications Acetaminophen (Acetaminophen 500 Mg Tab) 1,000 mg PO Q8 PRN PRN Reason: Moderate Pain Stop: 03/06/21 21:47 Atenolol (Atenolol 25 Mg Tablet) 25 mg PO DAILY SABA Stop: 03/07/21 08:59 Last Admin: 02/10/21 08:39 Dose: Not Given Documented by: Bisacodyl (Bisacodyl 10 Mg Supp) 10 mg OR DAILY PRN PRN Reason: Constipation Stop: 03/06/21 21:47 Clonazepam (Clonazepam 0.5 Mg Tab) 0.5 mg PO HS SABA Stop: 03/06/21 20:59 Last Admin: 02/09/21 19:34 Dose: 0.5 mg Documented by: Diphenhydramine HCl (Diphenhydramine Capsule 25 Mg Cap) 25 mg PO Q4H PRN PRN Reason: Rash Stop: 03/12/21 07:47 Docusate Sodium (Docusate Sodium 100 Mg Cap) 100 mg PO BID SABA Stop: 03/06/21 22:44 Last Admin: 02/10/21 21:29 Dose: Not Given Documented by: Heparin Sodium (Porcine) (Heparin Sod 5,000 Unit/0.5 Ml Vial) 5,000 units SQ Q12 SABA Stop: 03/06/21 22:44 Last Admin: 02/10/21 21:48 Dose: Not Given Documented by: Hydromorphone HCl (Hydromorphone Inj 0.5 Mg/0.5 Ml Syr) 0.25 mg IV Q4H PRN PRN Reason: Pain or Pre PT Stop: 02/18/21 21:47 Last Admin: 02/11/21 01:21 Dose: 0.25 mg Documented by: Lorazepam (Ativan) 0.25 mg in 0.5 mls @ 0.5 mls/min IV PRN PRN PRN Reason: blood transfusion Stop: 03/07/21 12:25 Last Admin: 02/05/21 17:34 Dose: 0.5 mls/min Documented by: Famotidine 20 mg/ Syringe 5 mls @ 2.5 mls/min IV BID SABA Stop: 03/12/21 08:59 Last Admin: 02/11/21 09:23 Dose: 2.5 mls/min Documented by: Sodium Chloride (Nss 1000ml) 1,000 mls @ 100 mls/hr IV .Q10H SABA Stop: 03/12/21 16:44 Last Infusion: 02/10/21 21:14 Dose: 0 mls/hr Documented by: Daptomycin 350 mg/ Syringe 7 mls @ 3.5 mls/min IV Q2D@1700 SABA; Protocol Stop: 02/24/21 16:59 Last Admin: 02/10/21 17:23 Dose: 3.5 mls/min Documented by: Lactobacillus Acidoph/Casei/Rhamnos (Advanced Probiotic 1250 Mg Capsule) 2 cap PO DAILY SABA Stop: 03/10/21 13:29 Last Admin: 02/10/21 08:39 Dose: Not Given Documented by: Levothyroxine Sodium (Levothyroxine Sodium 125 Mcg Tablet) 125 mcg PO DAILYBB [facility] Stop: 03/07/21 06:29 Last Admin: 02/11/21 05:11 Dose: 125 mcg Documented by: Magnesium Hydroxide (Magnesium Hydroxide Susp 30 Ml Udc) 30 ml PO Q6H PRN PRN Reason: Constipation Stop: 03/06/21 21:47 Magnesium Oxide (Magnesium Oxide 400 Mg Tab) 400 mg PO BID [facility] Stop: 03/09/21 20:59 Last Admin: 02/10/21 21:29 Dose: Not Given Documented by: Melatonin (Melatonin 3 Mg Tab) 3 mg PO HSZ PRN; Protocol PRN Reason: Sleep Stop: 03/06/21 21:51 Last Admin: 02/09/21 19:34 Dose: 3 mg Documented by: Metoprolol Tartrate (Metoprolol Tartrate 1 Mg/Ml Vial) 2.5 mg IV Q4H PRN PRN Reason: HR >120 Stop: 03/06/21 21:47 Miscellaneous Information (Daptomycin Consult Active) 1 ea N/A UD PRN PRN Reason: Consult Stop: 03/12/21 16:58 Naloxone HCl (Naloxone Hcl 0.4 Mg/1 Ml Vial/Carp) 0.1 mg IV Q5M PRN PRN Reason: Oversedation/Resp Depression Stop: 03/06/21 21:47 Olanzapine (Olanzapine 10 Mg/2.1 Ml Sdv) 2.5 mg IM Q4H PRN PRN Reason: Anxiety/Agitation Stop: 03/12/21 20:52 Last Admin: 02/11/21 05:01 Dose: 2.5 mg Documented by: Ondansetron HCl (Ondansetron Inj 2 Mg/Ml 2 Ml Vial) 4 mg IV Q6H PRN PRN Reason: Nausea And Vomiting Stop: 03/06/21 21:47 Last Admin: 02/06/21 19:08 Dose: 4 mg Documented by: Oxycodone HCl (Oxycodone Hcl Ir 5 Mg Tab (Immediate Release)) 5 - 10 mg PO Q4H PRN PRN Reason: Pain or Pre PT Stop: 02/18/21 21:47 Last Admin: 02/07/21 00:03 Dose: 10 mg Documented by: Pantoprazole Sodium (Pantoprazole 40 Mg Tab) 40 mg PO BID [facility] Stop: 03/06/21 22:14 Last Admin: 02/10/21 21:29 Dose: Not Given Documented by: Sennosides (Senna 8.6 Mg Tab) 17.2 mg PO HS SABA Stop: 03/06/21 22:44 Last Admin: 02/10/21 21:29 Dose: Not Given Documented by: Sertraline HCl (Sertraline Hcl 100 Mg Tablet) 100 mg PO [facility] Stop: 03/06/21 22:14 Last Admin: 02/10/21 21:30 Dose: Not Given Documented by: Tramadol HCl (Tramadol Hcl 50 Mg Tablet) 25 mg PO Q4H PRN PRN Reason: Pain & Pre PT Stop: 03/06/21 21:47 Last Admin: 02/11/21 06:26 Dose: 25 mg Documented by: (1) Fall Encounter type: initial encounter Qualified Code(s): W19.XXXA - Unspecified fall, initial encounter
[2021-02-11] MEDS ORDERED: FUROSEMIDE 10 MG in SYRINGE 0 ML IV ONE (10:33)
[2021-02-11] MEDS: ADVANCED PROBIOTIC 1250 MG CAPSULE PO SCH (11:08)
[2021-02-11] MEDS: ATENOLOL 25 MG TABLET PO SCH (11:09)
[2021-02-11] MEDS: DOCUSATE SODIUM 100 MG CAP PO SCH ×2 (11:10→19:47)
[2021-02-11] MEDS: PANTOprazole 40 MG TAB PO SCH ×2 (11:10→19:48)
[2021-02-11] MEDS: MAGNESIUM OXIDE 400 MG TAB PO SCH ×2 (11:10→19:47)
[2021-02-11] MEDS: diphenhydrAMINE Capsule 25 MG CAP PO PRN (11:12)
[2021-02-11] MEDS: HEPARIN SOD 5,000 UNIT/0.5 ML VIAL SQ SCH ×2 (11:20→19:47)
[2021-02-11] MEDS: ACETAMINOPHEN 500 MG TAB PO PRN (16:55)
--- NOTE | 2021-02-11 17:03 | Orthopedic Progress Note ---
Date of Service February 11, 2021 Assessment & Plan (1) Post-operative infection: Plan: POD # 6 s/p I&D L knee (Dr. Latif), 4 weeks s/p ORIF L Tibial plateau (Dr. Smith) Continue nonweightbearing status. Apply 4x4's and abds over the wound daily, large deo wrap from toes to mid thich. Change daily after showering. PT/OT to work on knee ROM, straight leg raises, quad sets etc. Continue IV antibiotics per primary service. Admission and Anticipated Discharge Date Admission Date: February 04, 2021 Subjective Patient was seen this afternoon for follow-up of her left knee and lower extremity infection. I removed her dressing. Surgical incision site looks very good with sutures intact. There is some exquisite tenderness to palpation and some fluctuance but no active drainage. Patient is in agony with passive straight leg raise.She is essentially nonverbal during today's visit holding a baby doll. Is unable to perform a review of systems due to her cognitive status at this point. Review of Systems Review of Systems: Unobtainable due to mental health condition Physical Exam Physical Exam: Left lower extremity:Sutures are intact with no active drainage or surrounding erythema. There is mild edema and some fluctuance. Patient also has some swelling in her lower leg and calf tenderness. She moans in agony with passive straight leg raise however she was Able to perform active dorsi and plantar flexion of her foot.I did apply new dressing consisting of sterile 4 x 4's, ABDs and I reapplied her Doe bandages from her foot to her thigh Results & Data ([facility]) Vital Signs (Past 12 Hours) Vital Signs Temp Pulse Pulse Resp BP BP Pulse Ox 02/11/21 15:02 36.5 C 86 16 132/75 94 02/11/21 13:41 36.8 C 80 18 147/78 H 97 02/11/21 12:06 37.4 C 135 H 18 181/67 H 88 L 02/11/21 08:45 81 02/11/21 07:42 36.9 C 84 16 136/67 92 Laboratory Results 02/11/21 02/11/21 02/10/21 Range/Units 05:55 05:55 10:11 WBC 14.50 H (4.8-10.8) K/uL RBC 3.05 L (4.2-5.4) M/uL Hgb 8.4 L (12.0-16.0) g/dL Hct 27.1 L (37-47) % MCV 88.9 (80-100) fL MCH 27.5 (25-34) pg MCHC 31.0 L (32-36) g/dL RDW Std Deviation 49.2 H (36.4-46.3) fL RDW Coeff of Brandan 15.1 H (11.5-14.5) % Plt Count 684 H (130-400) K/uL MPV 8.5 (7.4-10.4) fL Sodium 136 (136-145) mmol/L Potassium 3.5 (3.5-5.1) mmol/L Chloride 102 (98-107) mmol/L Carbon Dioxide 23 (21-32) mmol/L Anion Gap 11.0 (3-11) BUN 22 H (7-18) mg/dl Creatinine 2.17 H D (0.6-1.2) mg/dl Est Cr Clr Drug Dosing 18.4 ml/min Est GFR ( Amer) 23.6 ml/min Est GFR (Non-Af Amer) 20.4 ml/min BUN/Creatinine Ratio 10.2 (10-20) Glucose 76 (70-99) mg/dl Calcium 9.7 (8.5-10.1) mg/dl Magnesium 2.2 (1.8-2.4) mg/dl TSH (0.300-4.500) uIu/ml Urine Color Dark Yellow Urine Appearance Turbid A (Clear) Urine pH 5.5 (4.5-7.5) Ur Specific [place] 1.019 (1.000-1.030) Urine Protein 1+ H (Negative) Urine Glucose (UA) Negative (Negative) Urine Ketones Trace H (Negative) Urine Blood 1+ H (Negative) Urine Nitrite Negative (Negative) Urine Bilirubin Negative (Negative) Urine Urobilinogen Negative (Negative) Ur Leukocyte Esterase 2+ H (Negative) Urine WBC (Auto) >30 H (0-5) /hpf Urine RBC (Auto) 0-4 (0-4) /hpf U Hyaline Cast (Auto) 0 (0-5) /lpf U Epithel Cells (Auto) >30 H (0-5) /lpf Urine Bacteria (Auto) Negative (Negative) Urine Yeast Budding A (None Prsent) 02/10/21 Range/Units 08:57 WBC (4.8-10.8) K/uL RBC (4.2-5.4) M/uL Hgb (12.0-16.0) g/dL Hct (37-47) % MCV (80-100) fL MCH (25-34) pg MCHC (32-36) g/dL RDW Std Deviation (36.4-46.3) fL RDW Coeff of Brandan (11.5-14.5) % Plt Count (130-400) K/uL MPV (7.4-10.4) fL Sodium (136-145) mmol/L Potassium (3.5-5.1) mmol/L Chloride (98-107) mmol/L Carbon Dioxide (21-32) mmol/L Anion Gap (3-11) BUN (7-18) mg/dl Creatinine (0.6-1.2) mg/dl Est Cr Clr Drug Dosing ml/min Est GFR ( Amer) ml/min Est GFR (Non-Af Amer) ml/min BUN/Creatinine Ratio (10-20) Glucose (70-99) mg/dl Calcium (8.5-10.1) mg/dl Magnesium (1.8-2.4) mg/dl TSH 1.800 (0.300-4.500) uIu/ml Urine Color Urine Appearance (Clear) Urine pH (4.5-7.5) Ur Specific [place] (1.000-1.030) Urine Protein (Negative) Urine Glucose (UA) (Negative) Urine Ketones (Negative) Urine Blood (Negative) Urine Nitrite (Negative) Urine Bilirubin (Negative) Urine Urobilinogen (Negative) Ur Leukocyte Esterase (Negative) Urine WBC (Auto) (0-5) /hpf Urine RBC (Auto) (0-4) /hpf U Hyaline Cast (Auto) (0-5) /lpf U Epithel Cells (Auto) (0-5) /lpf Urine Bacteria (Auto) (Negative) Urine Yeast (None Prsent) (1) Post-operative infection Encounter type: initial encounter Postoperative infection type: unspecified type Qualified Code(s): T81.40XA - Infection following a procedure, unspecified, initial encounter
[2021-02-11] MEDS: SERTRALINE HCL 100 MG TABLET PO SCH (19:47)
[2021-02-11] MEDS: SENNA 8.6 MG TAB PO SCH (19:47)
--- NOTE | 2021-02-11 21:42 | Consultation Report ---
NEPHROLOGY CONSULTATION NOTE REASON FOR CONSULTATION: Acute renal failure. HISTORY OF PRESENT ILLNESS: The patient is an 85-year-old female who was admitted to the hospital about a week ago with a diagnosis of sepsis in the surgical site with orthopedic surgery. However, she had normal kidney function with a creatinine of 0.7 as of 2 days ago and since then it has gone up to 1.6 yesterday and 2.17 today. Her creatinine was slightly abnormal at 1.7 on admission, but then improved all the way to normal in few days. At this time, the patient is getting antibiotics and currently getting daptomycin, but she has been on various different antibiotics including vancomycin and nafcillin. She received one dose of Lasix earlier today after chest x-ray shows pulmonary congestion. However, the patient is not really eating much and is only eating around 25%, but she is also getting normal saline. Blood pressure has not been low at least for the last 2 days; however, it is worth noting that in the initial days, her blood pressure was low with readings as low as 85 systolic. She is making urine and has a Bass catheter. Yesterday in a 24-hour time period, she made 525 mL of urine. Her urine output has been in the low range to around 500 mL per day. I cannot obtain any history from the patient as the patient is significantly confused with pretty severe case of hospital delirium. ALLERGIES: List was reviewed in detail and is as per the reconciliation list. MEDICATIONS: Home medication list was also reviewed in detail. At home, she takes losartan, but I did not see any MARICRUZ or ARB, and there is no diuretics at home. PAST MEDICAL AND SURGICAL HISTORY: Includes cerebral aneurysm, depression, esophagitis, history of papillary adenocarcinoma of thyroid, hypertension, hyperlipidemia, hypothyroidism, obstructive sleep apnea, history of panic disorder, appendicectomy, thyroidectomy. FAMILY HISTORY: Negative for renal disease or dialysis. SOCIAL HISTORY: Never smoked. No alcohol. She is and lives with her . She uses cane and walker for ambulation. She is not on any oxygen at home. REVIEW OF SYSTEMS: Unable to obtain as the patient is currently very confused and in significant delirium. PHYSICAL EXAMINATION: GENERAL: The patient is awake, but very confused and unable to give me any meaningful history. VITAL SIGNS: Blood pressure is 147/78, pulse rate 80, temperature 36.8 degrees Celsius, 97% on room air. The patient does not appear to be in any respiratory distress. Mucous membrane is moist. NECK: Supple. No jugular venous distention. CHEST: Bilateral basal crackles, but very hard to examine. CARDIOVASCULAR: S1 and S2, regular. ABDOMEN: Soft, nontender. EXTREMITIES: Show no edema. NEUROLOGIC: Very confused. LABORATORY TEST: As stated earlier, creatinine was 0.7 just 2 days ago and since then has gone up to 1.6 and 2.17 today. Urine sediment is consistent with ATN like picture with turbid-appearing urine with protein, blood, a very active urine sediment with lots of epithelial cells. Chest x-ray shows pulmonary congestion and this was a x-ray done today. Blood culture was positive with Staphylococcus aureus on 02/05. since then, urine culture has been done and is negative. Blood culture has been done again and those are still negative as of now. ASSESSMENT AND PLAN: An 85-year-old female with pretty close to normal baseline kidney function, was admitted with possible infection of the recently done orthopedic surgery with MRSA bacteremia. She developed acute renal failure in the setting of above with bacteremia and multiple antibiotics exposure as well as period of hypotension. 1. Acute renal failure. This is secondary to ATN in the setting of acute infection, various antibiotic exposure as well as periods of hypotension in the initial days. She is not volume depleted and on x-ray in fact has pulmonary congestion, but does not appear she is in any respiratory distress from the breathing standpoint. Given that she is barely eating or drinking. I believe the best course of action is not to give any IV fluid and not to give any Lasix and let her stabilize on her own. No further workup is needed for the etiology of acute renal failure as this happened in the setting of bacteremia as well as hypotension, various antibiotics exposure. The diagnosis of the acute renal failure is ATN. However, we do not know how far worse the renal function can get as this is from ATN. Her urine output is fairly low, which is never a good sign. Continue to do daily labs and daily input and output charting. Avoid MARICRUZ inhibitor, ARB, NSAIDs, contrast agents at this time. Thank you very much and we will continue to follow. Job ID: [id number] [facility]ALTarsha
[2021-02-12] MEDS: ACETAMINOPHEN 500 MG TAB PO PRN (00:36)
[2021-02-12] MEDS: MELATONIN 3 MG TAB PO PRN (00:36)
[2021-02-12] MEDS: LEVOTHYROXINE SODIUM 125 MCG TABLET PO SCH (05:16)
[2021-02-12] MEDS: HYDROmorphone INJ 0.5 MG/0.5 ML SYR IV PRN ×2 (06:22→20:56)
[2021-02-12 08:00] LABS: Hemoglobin 7.7 g/dL (12.0-16.0); Mean Corpuscular Hemoglobin 28.2 pg (25-34); Mean Corpuscular Hgb Conc 32.1 g/dL (32-36); Mean Corpuscular Volume 87.9 fL (80-100); Mean Platelet Volume 8.2 fL (7.4-10.4); Platelet Count 649 K/uL (130-400); RDW Coefficient of Variation 15.2 % (11.5-14.5); RDW Standard Deviation 48.4 fL (36.4-46.3); Red Blood Count 2.73 M/uL (4.2-5.4); White Blood Count 11.76 K/uL (4.8-10.8)
[2021-02-12 08:34] LABS: BUN Creatinine Ratio 10.1 (10-20); Calcium 9.6 mg/dl (8.5-10.1); Magnesium 2.1 mg/dl (1.8-2.4); Potassium 3.8 mmol/L (3.5-5.1)
[2021-02-12] MEDS: DOCUSATE SODIUM 100 MG CAP PO SCH ×2 (08:45→21:46)
[2021-02-12] MEDS: HEPARIN SOD 5,000 UNIT/0.5 ML VIAL SQ SCH ×2 (08:46→20:57)
[2021-02-12] MEDS: ATENOLOL 25 MG TABLET PO SCH (08:48)
[2021-02-12] MEDS: FAMOTIDINE 20 MG in SYRINGE 3 ML IV SCH ×2 (08:54→20:56)
[2021-02-12] MEDS: ADVANCED PROBIOTIC 1250 MG CAPSULE PO SCH (08:55)
[2021-02-12] MEDS: MAGNESIUM OXIDE 400 MG TAB PO SCH ×3 (08:55→21:48)
--- NOTE | 2021-02-12 09:27 | Nephrology Progress Note ---
Date of Service February 12, 2021 Assessment & Plan Admission and Anticipated Discharge Date Admission Date: February 04, 2021 Subjective PHYSICAL EXAMINATION: GENERAL: The patient is awake, but very confused and unable to give me any meaningful history. NECK: Supple. No jugular venous distention. CHEST: Bilateral basal crackles, but very hard to examine. CARDIOVASCULAR: S1 and S2, regular. ABDOMEN: Soft, nontender. EXTREMITIES: Show no edema. NEUROLOGIC: Very confused. LABORATORY TEST: As stated earlier, creatinine was 0.7 just 2 days ago and since then has gone up to 1.6 and 2.17 and today 2.3 today. Urine sediment is consistent with ATN like picture with turbid-appearing urine with protein, blood, a very active urine sediment with lots of epithelial cells. Chest x-ray shows pulmonary congestion and this was a x-ray done today. Blood culture was positive with Staphylococcus aureus on 02/05. since then, urine culture has been done and is negative. Blood culture has been done again and those are still negative as of now. ASSESSMENT AND PLAN: An 85-year-old female with pretty close to normal baseline kidney function, was admitted with possible infection of the recently done orth opedic surgery with MRSA bacteremia. She developed acute renal failure in the setting of above with bacteremia and multiple antibiotics exposure as well as period of hypotension. 1. Acute renal failure. This is secondary to ATN in the setting of acute infection, various antibiotic exposure as well as periods of hypotension in the initial days. She is not volume depleted and on x-ray in fact has pulmonary congestion, but does not appear she is in any respiratory distress from the breathing standpoint. Given that she is barely eating or drinking. I believe the best course of action is not to give any IV fluid and not to give any Lasix and let her stabilize on her own. No further workup is needed for the etiology of acute renal failure as this happened in the setting of bacteremia as well as hypotension, various antibiotics exposure. The diagnosis of the acute renal failure is ATN. However, we do not know how far worse the renal function can get as this is from ATN. Her urine output is fairly low, which is never a good sign. Continue to do daily labs and daily input and output charting. Avoid MARICRUZ inhibitor, ARB, NSAIDs, contrast agents at this time. Compared to yesterday more helpful for renal recovery--creat did not go up much from yesterday and urine output increased from 600 to 1000. No iv fluid and no lasix. Results & Data ([facility]) Vital Signs (Past 12 Hours) Vital Signs Pulse 02/11/21 23:00 76
[2021-02-12] MEDS: PANTOprazole 40 MG TAB PO SCH ×3 (10:59→21:48)
--- NOTE | 2021-02-12 14:21 | Orthopedic Progress Note ---
Date of Service February 12, 2021 Assessment & Plan (1) Post-operative infection: Plan: POD # 8 s/p I&D L knee (Dr. Latif), 5 weeks s/p ORIF L Tibial plateau (Dr. Smith) Continue nonweightbearing status. Apply abds over the wound daily, thigh high DOMENICA stocking. Change dressing daily after showering. PT/OT to work on knee ROM, straight leg raises, quad sets etc. Infection appears to be responding to antibiotics. Continue IV antibiotics per primary service. Admission and Anticipated Discharge Date Admission Date: February 04, 2021 Subjective Patient has had continued delirium in the hospital, now has a sitter with her. Has not wanted to get out of bed with physical therapy. Physical Exam Physical Exam: Alert, but becomes agitated and combative when her L knee is examined. L knee: incision healing well. No significant redness. No drainage on the dressing from yesterday. Lower leg edema improved. She is now able to do a straight leg raise, however, Knee ROM still limited actively about 5-65 degrees. NVI. (1) Post-operative infection Encounter type: initial encounter Postoperative infection type: unspecified type Qualified Code(s): T81.40XA - Infection following a procedure, unspecified, initial encounter
[2021-02-12 16:18] LABS: Hematocrit (blood only) 29.1 % (37-47); Hemoglobin 9.3 g/dL (12.0-16.0)
[2021-02-12] MEDS: DAPTOmycin 350 MG in SYRINGE 0 ML IV SCH (16:28)
--- NOTE | 2021-02-12 19:21 | Hospitalist Progress Note ---
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 She is being managed for the following: #. Sepsis 2/2 left lower extremity infection in post-operative setting #. IE One month post-op s/p ORIF of left tibial plateau fracture by Dr. Smith [place] well initially but developed worsening pain, redness and swelling to the area over the past week. Was seen at ortho follow up and underwent Venous doppler of LLE that was negative for DVT Patient is alert to person at baseline. At presentation - Afebrile, HR 92, WBC 20.25 K, plt 546, ESR 87, CRP 41.90, procalcitonin 3.20, lactate 2.[address] Latif in ER - taken for emergent washout of wound (02/04) Patient tolerated procedure well, drainage and pus noted during procedure Joint aspiration, synovial fluid WBC > 238,000 Blood culture, February 04, positive for gram-positive cocci in clusters (MSSA) Repeat blood cultx -February 05, positive for gram-positive cocci 02/08 - repeated blood cultures - negative for 48 hrs S/p left knee I&D, hemovac applied (now hemovac removed) Started on empiric IV Vanco and Zosyn pre-op Pharmacy and ID consulted, daptomycin dose 500 IV daily initially , continued zosyn Given blood and synovial cultx - MSSA - switched Abx to cefazolin (02/07) Patient however developed light pink rash, and therefore cefazolin was changed to nafcillin (after discussing w/ pharmacy) 02/09-patient received Benadryl, however rash still present at lower abdomen and lower back and thighs Official ID consult obtained (02/11) -initial recommendation is cefazolin however I discussed with ID physician her rash, and therefore switched to daptomycin. 02/12 Echo [given persistent bacteremia]: EF 60 to 65%, possible small mobile echodensity adherent to the posterior mitral valve annulus and area of mitral annular calcification. Will consult cardiology. Given new findings of IE, will reach out to [facility] ID service for any further recs/update. Per ortho: PT/OT as ordered NWB left lower extremity Ice to left knee PRN pain/swelling Elevate left leg on pillows for swelling. Use walker to assist with gait/transfers Lovenox for DVT prophylaxis. Most likely will need snf IV antibiotics. Pain control, IV fluids, continued ortho care #. Fall at home In setting of LLE infection Fall precautions, PT/OT evaluation Patient lives at home with elderly #. Acute kidney injury superimposed on CKD III Baseline creatinine around 1, creatinine uptrending Nephrology on board: Recommends no IV fluid and no Lasix, later stabilized on her own. No further work-up is needed for etiology of acute renal failure given it occurred on the background of bacteremia/hypertension/antibiotic exposure. Daily labs. Avoid MARICRUZ inhibitor/ARB/NSAIDs/contrast agents. #. Acute blood loss anemia/status post fall and postoperative hemoglobin 7.6 on 02/05, received 1 unit of PRBCs Hgb stable Continue to closely monitor H&H #. Hypertension Continue atenolol Holding losartan in setting of MOSES cont. to monitor BP #. Hypokalemia, hypomagnesemia Replete and monitor #. Paroxysmal SVT Monitor on tele, continue atenolol #. Hypothyroidism Continue levothyroxine #. Depression Continue sertraline DVT Ppx: SQ heparin Code status: FULL PCP: Dr. Roe Dispo: Admitted to [facility]. Discharge planning ordered Admission and Anticipated Discharge Date Admission Date: February 04, 2021 Subjective Patient is lying in bed, AO to self, on room air, NAD. Patient did not cooperate fully with the examination. PT has arrived at the room but patient declined PT in the morning. Denies pain/headache/other review of symptoms. Per RN, patient has not taken her breakfast in the morning, had 2 loose bowel movements. Physical Exam Physical Exam: GENERAL: Alert and oriented x to self. NAD, on RA. HEENT: No pallor, no icterus. Pupils equal, round and reactive to light. Oral mucosa moist. NECK: No JVD, no neck masses. HEART: S1 and S2 heard. Regular rate and rhythm. No murmur, no gallop. RESPIRATORY SYSTEM: Normal AP diameter. No accessory muscle use. No wheezing, no crackles. ABDOMEN: Soft, bowel sounds present, nontender, no distention. CENTRAL NERVOUS SYSTEM: Alert and oriented x3. No facial droop. Speech is clear. Obeys simple commands. Moves extremities. EXTREMITIES: No edema, no erythema seen. LLE with clean dressing without soakage. (1) Sepsis Acute renal failure type: unspecified Sepsis acute organ dysfunction status: with acute organ dysfunction Sepsis type: sepsis due to unspecified organism Severe sepsis acute organ dysfunction type: acute renal failure Severe sepsis shock status: without septic shock Qualified Code(s): A41.9 - Sepsis, unspecified organism; R65.20 - Severe sepsis without septic shock; N17.9 - Acute kidney failure, unspecified
[2021-02-12] MEDS: diphenhydrAMINE Capsule 25 MG CAP PO PRN (20:56)
[2021-02-12] MEDS: SENNA 8.6 MG TAB PO SCH ×2 (20:57→21:48)
[2021-02-12] MEDS: SERTRALINE HCL 100 MG TABLET PO SCH ×2 (20:58→21:49)
[2021-02-13] MEDS: OLANZapine 10 MG/2.1 ML SDV IM PRN ×2 (02:10→23:58)
[2021-02-13] MEDS: LEVOTHYROXINE SODIUM 125 MCG TABLET PO SCH (06:37)
[2021-02-13 07:39] LABS: Hematocrit (blood only) 26.2 % (37-47); Hemoglobin 8.3 g/dL (12.0-16.0); Mean Corpuscular Hemoglobin 27.9 pg (25-34); Mean Corpuscular Hgb Conc 31.7 g/dL (32-36); Mean Corpuscular Volume 87.9 fL (80-100); Mean Platelet Volume 8.5 fL (7.4-10.4); Platelet Count 840 K/uL (130-400); RDW Coefficient of Variation 15.2 % (11.5-14.5); RDW Standard Deviation 48.6 fL (36.4-46.3); Red Blood Count 2.98 M/uL (4.2-5.4); White Blood Count 13.86 K/uL (4.8-10.8)
[2021-02-13 08:10] LABS: BUN Creatinine Ratio 12.2 (10-20); Calcium 9.5 mg/dl (8.5-10.1); Creatinine Clr Calc Pharmacy 20.1 ml/min; Est GFR (African American) 26.3 ml/min; Est GFR (Non-African American) 22.7 ml/min; Potassium 3.6 mmol/L (3.5-5.1)
--- NOTE | 2021-02-13 09:51 | Cardiology Consultation ---
Date of Consultation February 13, 2021 Assessment & Plan (1) Infective endocarditis: (2) Sepsis: (3) Acute kidney injury superimposed on chronic kidney disease: (4) HTN (hypertension): Patient is a complex 85-year-old female with longstanding hypertensive heart disease diastolic dysfunction with recent mechanical fall and subsequent surgical repair of left tibial plateau fracture with indwelling hardware. Patient presented this admission with evidence of acute surgical wound/joint infection and staph aureus bacteremia. Patient did respond relatively quickly with clearing of bacteremia within 48 hours and resolve of febrile illness. Extended antibiotic therapy expected given joint infection. Echocardiogram performed yesterday demonstrates a very small mobile structure possible vegetation along mitral valve annulus. No evidence of valve deterioration or insufficiency no findings to suggest abscess. Physical examination not remarkable for embolic phenomena however confusion and renal insufficiency will need to be followed closely Recommendations: EKG ordered to assess for conduction system disease Antibiotics as per ID recommendations. Will treat as endocarditis but patient will require extended antibiotic therapy with or without diagnosis. Echocardiographic findings do not suggest severe valvular involvement but may reassess via echocardiogram in 1 week's time or if further signs of cardiac deterioration. No indications for transesophageal echocardiogram Low threshold for cerebrovascular imaging if delirium persists History of Present Illness Reason for Consultation: Bacteremia, possible endocarditis Requesting Physician: Dr. Banegas Attending Physician: Quinten Banegas MD History of Present Illness Patient is an 85-year-old female office underlying issues include 1.Longstanding hypertension with hypertensive heart disease/diastolic dysfunction. 2.Hyperlipidemia with poor statin tolerance on chronic fenofibrate. 3.Obstructive sleep apnea. 4.Surgical hypothyroidism. 5. Vascular dementia/Alzheimer's with past delirium 6. Surgical wound infection with indwelling hardware status post ORIF left tibial plateau fracture following mechanical fall Patient is referred for evaluation of current clinical scenario including staph aureus bacteremia with surgical/joint infection. Echocardiogram was performed to assess for endocarditis with small mobile structure noted at the annulus of the mitral valve. No evidence of valve deterioration or dehiscence. No abscess or valvular insufficiency. Blood cultures were negative at 3 days antibiotic therapy Patient currently afebrile without cardiac complaint. Clinical course notable for acute renal insufficiency and intermittent confusion. Patient initially presented with signs and symptoms of sepsis including acute hypotension and confusion Patient is morning denies any complaints. Awakened from sleep with mild confusion on awakening. Denies chest pains or dizziness. Denies shortness of breath. Mild left leg pain but otherwise no acute complaints. Allergies Allergy/AdvReac Type Severity Reaction Status Date / Time No Known Drug Allergies Allergy Unknown Verified 02/04/21 22:27 [id number] Reductase AdvReac Intermediate MUSCLE Verified 02/04/21 22:19 Inhibitor ACHES-ELEVATED CK WITH LIPITOR PER HISTORY cefazolin [From Ancef] AdvReac Mild rash on Verified 02/08/21 14:39 abdomen Home Medications Medication Instructions Recorded Confirmed Type pantoprazole 40 mg tablet,delayed 40 mg PO BID 10/07/18 02/04/21 History release levothyroxine 125 mcg tablet 125 mcg PO DAILYBB 09/18/20 02/04/21 History aspirin 81 mg tablet,delayed 81 mg PO BID #60 tab 01/06/21 02/04/21 Rx release atenolol 25 mg tablet 25 mg PO DAILY 01/06/21 02/04/21 History clonazepam 1 mg tablet 1 mg PO HS 02/04/21 02/04/21 History losartan 25 mg tablet 25 mg PO QAM 02/04/21 02/04/21 History melatonin 5 mg tablet 5 mg PO HS PRN 02/04/21 02/04/21 History sertraline 100 mg tablet 100 mg PO HS 02/04/21 02/04/21 History Patient History Medical History 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" CKD (chronic kidney disease), stage III Depression Esophagitis (12/26/10) History of papillary adenocarcinoma of thyroid HLD (hyperlipidemia) HTN (hypertension) Hypertensive heart disease Hypothyroidism MERY (obstructive sleep apnea) Panic disorder (12/26/10) Thyroid cancer Surgical History Status post appendectomy Status post thyroidectomy Family History Other Diabetes Hypertension Social History Smoking Status: Never smoker Second Hand Exposure: No; Hx Alcohol Use: No Hx Substance Use: No Preferred Language: Somali Communication Ability: Impaired Building Surveyor Required: No Beliefs That Will Affect Care: None Current Living Situation: Family Current Living Situation Comment: lives with grandsom Other Information That Helps Us Care for You: No Feels Safe at Home: Yes Assistive Devices: Glasses Review of Systems Review of Systems: All systems reviewed & are unremarkable except as noted in Subjective Physical Exam Constitutional: well developed and well nourished; no acute distress Mildly confused but recognizes physician Eyes: PERRL, conjunctivae normal, anicteric sclerae ENMT: external ear and nose normal, oropharynx normal Neck: trachea midline, no thyromegaly Respiratory: normal respiratory effort, lungs clear to auscultation Cardiovascular: Rate/Rhythm: regular rate and regular rhythm Heart Sounds: normal S1 and normal S2; no gallop, no murmur and no cardiac rub Vessels: no JVD Extremities: no edema Chest (Breasts): Chest: normal inspection of chest Gastrointestinal (Abdomen): normal bowel sounds, soft, nontender, no hepatosplenomegaly Musculoskeletal: Left knee bandaged without drainage Skin: No visualized embolic phenomena hands or conjunctiva Neurologic: Patient awakens and moves all extremities without focal deficit. Mild disorientation Results & Data ([facility]) Vital Signs (Past 12 Hours) Vital Signs Temp Pulse Pulse Resp BP Pulse Ox 02/13/21 07:50 37.1 C 69 16 121/58 L 94 02/12/21 23:14 37.2 C 83 18 151/81 H 93 02/12/21 22:19 75 Laboratory Results Laboratory Results - last 24 hr 02/12/21 02/13/21 02/13/21 16:04 06:36 06:36 WBC 13.86 H RBC 2.98 L Hgb 9.3 L 8.3 L Hct 29.1 L 26.2 L MCV 87.9 MCH 27.9 MCHC 31.7 L RDW Std Deviation 48.6 H RDW Coeff of Brandan 15.2 H Plt Count 840 H MPV 8.5 Sodium 137 Potassium 3.6 Chloride 105 Carbon Dioxide 20 L Anion Gap 12.0 H BUN 24 H Creatinine 1.99 H D Est Cr Clr Drug Dosing 20.1 Est GFR ( Amer) 26.3 Est GFR (Non-Af Amer) 22.7 BUN/Creatinine Ratio 12.2 Glucose 85 Calcium 9.5
--- NOTE | 2021-02-13 11:15 | Orthopedic Progress Note ---
Date of Service February 13, 2021 Assessment & Plan (1) Post-operative infection: Plan: POD # 9 s/p I&D L knee (Dr. Latif), 5 weeks s/p ORIF L Tibial plateau (Dr. Smith) Continue nonweightbearing status. Apply abds over the wound daily, thigh high DOMENICA stocking. Change dressing daily after showering/bathing. PT/OT to work on knee ROM, straight leg raises, quad sets etc. Infection appears to be responding to antibiotics. Continue IV antibiotics per primary service/ID. Follow-up with Dr. Smith, Orthopedics 1 week after discharge. Admission and Anticipated Discharge Date Admission Date: February 04, 2021 Subjective Echo done yesterday concerning for endocarditis. Cardiology consulted. Patient has been sleepy this morning per her sitter. Physical Exam Physical Exam: Somnolent upon entering the room. Arousable, but responds in appropriately. Becomes agitated when her L knee is examined. L knee: incision healing well. No redness. No drainage on the dressing from yesterday. Lower leg edema improved. Knee ROM continues to improve, about 5-75 degrees today. NVI. Results & Data ([facility]) Vital Signs (Past 12 Hours) Vital Signs Temp Pulse Resp BP Pulse Ox 02/13/21 11:09 36.9 C 71 18 169/79 H 98 02/13/21 07:50 37.1 C 69 16 121/58 L 94 02/12/21 23:14 37.2 C 83 18 151/81 H 93 (1) Post-operative infection Encounter type: initial encounter Postoperative infection type: unspecified type Qualified Code(s): T81.40XA - Infection following a procedure, unspecified, initial encounter
--- NOTE | 2021-02-13 13:51 | Nephrology Progress Note ---
Date of Service February 13, 2021 Assessment & Plan Admission and Anticipated Discharge Date Admission Date: February 04, 2021 Subjective Assessment & Plan Admission and Anticipated Discharge Date Admission Date: February 04, 2021 Subjective PHYSICAL EXAMINATION: GENERAL: The patient is awake, but very confused and unable to give me any meaningful history. NECK: Supple. No jugular venous distention. CHEST: Bilateral basal crackles, but very hard to examine. CARDIOVASCULAR: S1 and S2, regular. ABDOMEN: Soft, nontender. EXTREMITIES: Show no edema. NEUROLOGIC: Very confused. LABORATORY TEST: As stated earlier, creatinine was 0.7 just 2 days ago and since then has gone up to 1.6 and 2.17 and today 2.3 today. Urine sediment is consistent with ATN like picture with turbid-appearing urine with protein, blood, a very active urine sediment with lots of epithelial cells. Chest x-ray shows pulmonary congestion and this was a x-ray done today. Blood culture was positive with Staphylococcus aureus on 02/05. since then, urine culture has been done and is negative. Blood culture has been done again and those are still negative as of now. ASSESSMENT AND PLAN: An 85-year-old female with pretty close to normal baseline kidney function, was admitted with possible infection of the recently done orthopedic surgery with MRSA bacteremia. She developed acute renal failure in the setting of above with bacteremia and multiple antibiotics exposure as well as period of hypotension. 1. Acute renal failure. This is secondary to ATN in the setting of acute infection, various antibiotic exposure as well as periods of hypotension in the initial days. She is not volume depleted and on x-ray in fact has pulmonary congestion, but does not appear she is in any respiratory distress from the br eathing standpoint. Given that she is barely eating or drinking. I believe the best course of action is not to give any IV fluid and not to give any Lasix and let her stabilize on her own. No further workup is needed for the etiology of acute renal failure as this happened in the setting of bacteremia as well as hypotension, various antibiotics exposure. The diagnosis of the acute renal failure is ATN. However, we do not know how far worse the renal function can get as this is from ATN. Her urine output is fairly low, which is never a good sign. Continue to do daily labs and daily input and output charting. Avoid MARICRUZ inhibitor, ARB, NSAIDs, contrast agents at this time. has now started with renal recovery--creat lower from yesterday. . No iv fluid and no lasix. Results & Data ([facility]) Vital Signs (Past 12 Hours) Vital Signs Temp Pulse Resp BP Pulse Ox 02/13/21 11:09 36.9 C 71 18 169/79 H 98 02/13/21 07:50 37.1 C 69 16 121/58 L 94
[2021-02-13] MEDS: DOCUSATE SODIUM 100 MG CAP PO SCH ×2 (16:02→21:35)
[2021-02-13] MEDS: HEPARIN SOD 5,000 UNIT/0.5 ML VIAL SQ SCH ×2 (16:02→21:35)
[2021-02-13] MEDS: MAGNESIUM OXIDE 400 MG TAB PO SCH ×2 (16:02→21:36)
[2021-02-13] MEDS: PANTOprazole 40 MG TAB PO SCH ×2 (16:02→21:36)
[2021-02-13] MEDS: ADVANCED PROBIOTIC 1250 MG CAPSULE PO SCH (16:02)
[2021-02-13] MEDS: ATENOLOL 25 MG TABLET PO SCH (16:02)
[2021-02-13] MEDS: FAMOTIDINE 20 MG in SYRINGE 3 ML IV SCH ×2 (16:06→21:35)
--- NOTE | 2021-02-13 17:20 | Hospitalist Progress Note ---
Date of Service February 13, 2021 Assessment & Plan (1) Sepsis: (2) Infective endocarditis: (3) Acute kidney injury superimposed on chronic kidney disease: Plan: 85yo F with a PMH of hypertension, hyperlipidemia, CKD III, hypothyroidism and MERY not on CPAP who presents 02/04 with worsening left lower extremity pain x4 days [employer]. She is being managed for the following: #. Sepsis 2/2 left lower extremity infection in post-operative setting #. IE One month post-op s/p ORIF of left tibial plateau fracture by Dr. Smith [place] well initially but developed worsening pain, redness and swelling to the area over the past week. Was seen at ortho follow up and underwent Venous doppler of LLE that was negative for DVT Patient is alert to person at baseline. At presentation - Afebrile, HR 92, WBC 20.25 K, plt 546, ESR 87, CRP 41.90, procalcitonin 3.20, lactate 2.[address] Latif in ER - taken for emergent washout of wound (02/04) Patient tolerated procedure well, drainage and pus noted during procedure Joint aspiration, synovial fluid WBC > 238,000 Blood culture, February 04, positive for gram-positive cocci in clusters (MSSA) Repeat blood cultx -February 05, positive for gram-positive cocci 02/08 - repeated blood cultures - negative for 48 hrs S/p left knee I&D, hemovac applied (now hemovac removed) Started on empiric IV Vanco and Zosyn pre-op Pharmacy and ID consulted, daptomycin dose 500 IV daily initially , continued zosyn Given blood and synovial cultx - MSSA - switched Abx to cefazolin (02/07) Patient however developed light pink rash, and therefore cefazolin was changed to nafcillin (after discussing w/ pharmacy) 02/09-patient received Benadryl, however rash still present at lower abdomen and lower back and thighs Official ID consult obtained (02/11) -initial recommendation is cefazolin however prior provider discussed with ID physician her rash, and therefore switched to daptomycin. Per ID: 6 weeks of total ATB therapy [started 02/04]. Check CK every week while on daptomycin. Followed by indefinite cephalexin 500 mg every 8 hours given her age and the retained hardware. 02/12 Echo [given persistent bacteremia]: EF 60 to 65%, possible small mobile echodensity adherent to the posterior mitral valve annulus and area of mitral annular calcification. Cardiology consulted: Agrees with ATB per ID, repeat echocardiogram in a week time or as needed for signs of cardiac deterioration. No indication for transesophageal echo. Low threshold for cerebrovascular imaging if delirium persist 02/13 ID updated about the new echo findings of vegetation, no change in her antibiotics adjusted. Per ortho: PT/OT as ordered; NWB left lower extremity Change dressing daily after showering/bathing. Use walker to assist with gait/transfers Lovenox for DVT prophylaxis. Follow-up with Dr. Smith, Orthopedics 1 week after discharge. Continue with supportive care, IV antibiotics, weekly CK monitoring #. Fall at home In setting of LLE infection Fall precautions, PT/OT Patient lives at home with elderly #. Acute kidney injury superimposed on CKD III Baseline creatinine around 1 Nephrology on board: Recommends no IV fluid and no Lasix, later stabilized on her own. No further work-up is needed for etiology of acute renal failure given it occurred on the background of bacteremia/hypertension/antibiotic exposure. Daily labs. Avoid MARICRUZ inhibitor/ARB/NSAIDs/contrast agents. Creatinine improving, still elevated #. Acute blood loss anemia/status post fall and postoperative hemoglobin 7.6 on 02/05, received 1 unit of PRBCs Hgb stable Continue to closely monitor H&H #. Hypertension Continue atenolol Holding losartan in setting of MOSES cont. to monitor BP #. Hypokalemia, hypomagnesemia Replete and monitor #. Paroxysmal SVT Monitor on tele, continue atenolol #. Hypothyroidism Continue levothyroxine #. Depression Continue sertraline DVT Ppx: SQ heparin Code status: FULL PCP: Dr. Roe Dispo: Admitted to [facility]. Discharge planning ordered Admission and Anticipated Discharge Date Admission Date: February 04, 2021 Subjective Patient was lying in bed, on room air, NAD, sleeping. Difficult to awake. Denied pain. Other ROS were not assessable. Physical Exam Physical Exam: GENERAL: Sleeping, difficult to awake. NAD, on RA. HEENT: No pallor, no icterus. Pupils equal, round and reactive to light. Oral mucosa moist. NECK: No JVD, no neck masses. HEART: S1 and S2 heard. Regular rate and rhythm. No murmur, no gallop. RESPIRATORY SYSTEM: Normal AP diameter. No accessory muscle use. No wheezing, no crackles. ABDOMEN: Soft, bowel sounds present, nontender, no distention. CENTRAL NERVOUS SYSTEM: No facial droop. N/A EXTREMITIES: No edema, no erythema seen. LLE with clean dressing without soakage. Results & Data Results & Data ([facility]) Vital Signs (Past 12 Hours) Vital Signs Temp Pulse Resp BP Pulse Ox 02/13/21 15:00 36.9 C 65 16 157/76 H 96 02/13/21 11:09 36.9 C 71 18 169/79 H 98 02/13/21 07:50 37.1 C 69 16 121/58 L 94 (1) Sepsis Acute renal failure type: unspecified Sepsis acute organ dysfunction status: with acute organ dysfunction Sepsis type: sepsis due to unspecified organism Severe sepsis acute organ dysfunction type: acute renal failure Severe sepsis shock status: without septic shock Qualified Code(s): A41.9 - Sepsis, unspecified organism; R65.20 - Severe sepsis without septic shock; N17.9 - Acute kidney failure, unspecified
[2021-02-13] MEDS: SERTRALINE HCL 100 MG TABLET PO SCH (21:36)
[2021-02-13] MEDS: SENNA 8.6 MG TAB PO SCH (21:36)
[2021-02-13] MEDS: ONDANSETRON INJ 2 MG/ML 2 ML VIAL IV PRN (23:17)
[2021-02-14] MEDS ORDERED: HALOPERIDOL LACTATE 5 MG/ML 1 ML VIAL IM STA (04:14)
[2021-02-14 06:19] LABS: Hematocrit (blood only) 25.6 % (37-47); Hemoglobin 8.2 g/dL (12.0-16.0); Mean Corpuscular Hemoglobin 28.3 pg (25-34); Mean Corpuscular Volume 88.3 fL (80-100); Mean Platelet Volume 8.1 fL (7.4-10.4); Platelet Count 783 K/uL (130-400); RDW Coefficient of Variation 15.6 % (11.5-14.5); RDW Standard Deviation 50.2 fL (36.4-46.3); White Blood Count 13.05 K/uL (4.8-10.8)
[2021-02-14] MEDS: LEVOTHYROXINE SODIUM 125 MCG TABLET PO SCH (06:31)
[2021-02-14 06:52] LABS: BUN Creatinine Ratio 13.9 (10-20); Calcium 9.4 mg/dl (8.5-10.1); Creatinine Clr Calc Pharmacy 23.3 ml/min; Est GFR (African American) 31.5 ml/min; Est GFR (Non-African American) 27.2 ml/min; Potassium 3.7 mmol/L (3.5-5.1)
[2021-02-14] MEDS: ATENOLOL 25 MG TABLET PO SCH (08:13)
[2021-02-14] MEDS: DOCUSATE SODIUM 100 MG CAP PO SCH ×2 (08:15→22:49)
[2021-02-14] MEDS: ADVANCED PROBIOTIC 1250 MG CAPSULE PO SCH (08:16)
[2021-02-14] MEDS: MAGNESIUM OXIDE 400 MG TAB PO SCH ×2 (08:16→22:49)
[2021-02-14] MEDS: PANTOprazole 40 MG TAB PO SCH ×2 (08:16→22:49)
[2021-02-14] MEDS: FAMOTIDINE 20 MG in SYRINGE 3 ML IV SCH ×2 (08:22→22:40)
[2021-02-14] MEDS: HEPARIN SOD 5,000 UNIT/0.5 ML VIAL SQ SCH ×2 (08:25→20:02)
--- NOTE | 2021-02-14 09:58 | Hospitalist Progress Note ---
Date of Service February 14, 2021 Assessment & Plan (1) Sepsis: (2) Infective endocarditis: (3) Acute kidney injury superimposed on chronic kidney disease: Plan: 85yo F with a PMH of hypertension, hyperlipidemia, CKD III, hypothyroidism and MERY not on CPAP who presents 02/04 with worsening left lower extremity pain x4 days [employer]. She is being managed for the following: #. Sepsis 2/2 left lower extremity infection in post-operative setting #. IE One month post-op s/p ORIF of left tibial plateau fracture by Dr. Smith [place] well initially but developed worsening pain, redness and swelling to the area over the past week. Was seen at ortho follow up and underwent Venous doppler of LLE that was negative for DVT Patient is alert to person at baseline. At presentation - Afebrile, HR 92, WBC 20.25 K, plt 546, ESR 87, CRP 41.90, procalcitonin 3.20, lactate 2.[address] Latif in ER - taken for emergent washout of wound (02/04) Patient tolerated procedure well, drainage and pus noted during procedure Joint aspiration, synovial fluid WBC > 238,000 Blood culture, February 04, positive for gram-positive cocci in clusters (MSSA) Repeat blood cultx -February 05, positive for gram-positive cocci 02/08 - repeated blood cultures - negative for 48 hrs S/p left knee I&D, hemovac applied (now hemovac removed) Started on empiric IV Vanco and Zosyn pre-op Pharmacy and ID consulted, daptomycin dose 500 IV daily initially , continued zosyn Given blood and synovial cultx - MSSA - switched Abx to cefazolin (02/07) Patient however developed light pink rash, and therefore cefazolin was changed to nafcillin (after discussing w/ pharmacy) 02/09-patient received Benadryl, however rash still present at lower abdomen and lower back and thighs Official ID consult obtained (02/11) -initial recommendation is cefazolin however prior provider discussed with ID physician her rash, and therefore switched to daptomycin. Per ID: 6 weeks of total ATB therapy [started 02/04]. Check CK every week while on daptomycin. Followed by indefinite doxycycline 100 mg daily given her age and the retained hardware [patient had skin rash with cefazolin] based on rediscussion with ID on 02/14. 02/13 ID updated about the new echo findings of vegetation. 02/12 Echo [given persistent bacteremia]: EF 60 to 65%, possible small mobile echodensity adherent to the posterior mitral valve annulus and area of mitral annular calcification. Cardiology consulted: Agrees with ATB per ID, repeat echocardiogram in a week time or as needed for signs of cardiac deterioration. No indication for transesophageal echo. Low threshold for cerebrovascular imaging if delirium persist Per ortho: PT/OT as ordered; NWB left lower extremity Change dressing daily after showering/bathing. Use walker to assist with gait/transfers Lovenox for DVT prophylaxis. Follow-up with Dr. Smith, Orthopedics 1 week after discharge. Continue with supportive care, IV antibiotics, weekly CK monitoring #. Fall at home In setting of LLE infection Fall precautions, PT/OT Patient lives at home with elderly #. Acute kidney injury superimposed on CKD III Baseline creatinine around 1 Nephrology on board: Recommends no IV fluid and no Lasix, later stabilized on her own. No further work-up is needed for etiology of acute renal failure given it occurred on the background of bacteremia/hypertension/antibiotic exposure. Daily labs. Avoid MARICRUZ inhibitor/ARB/NSAIDs/contrast agents. Creatinine improving, still elevated #. Acute blood loss anemia/status post fall and postoperative hemoglobin 7.6 on 02/05, received 1 unit of PRBCs Hgb stable Continue to closely monitor H&H #. Hypertension Continue atenolol Holding losartan in setting of MOSES cont. to monitor BP #. Hypokalemia, hypomagnesemia Replete and monitor #. Paroxysmal SVT Monitor on tele, continue atenolol #. Hypothyroidism Continue levothyroxine #. Depression Continue sertraline DVT Ppx: SQ heparin Code status: FULL PCP: Dr. Roe Dispo: Admitted to [facility]. Expect discharge in 1 to 2 days. CM working on placement. 02/14 called her son Dillon for an update, went to [employer], left message. Admission and Anticipated Discharge Date Admission Date: February 04, 2021 Subjective Patient was lying in bed, on room air, NAD, no issues overnight. Patient is alert and oriented to time. Patient looks awake and better than yesterday. Denies pain/chest pain/palpitation/other review of symptoms. Physical Exam Physical Exam: GENERAL: Alert and oriented to time. NAD, on RA. HEENT: No pallor, no icterus. Pupils equal, round and reactive to light. Oral mucosa moist. NECK: No JVD, no neck masses. HEART: S1 and S2 heard. Regular rate and rhythm. No murmur, no gallop. RESPIRATORY SYSTEM: Normal AP diameter. No accessory muscle use. No wheezing, no crackles. ABDOMEN: Soft, bowel sounds present, nontender, no distention. CENTRAL NERVOUS SYSTEM: No facial droop. Moves extremities, sensation intact, articulates clearly. EXTREMITIES: No edema, no erythema seen. LLE with clean dressing without soakage. Results & Data Results & Data ([facility]) Vital Signs (Past 12 Hours) Vital Signs Temp Pulse Pulse Pulse Resp BP Pulse Ox 02/14/21 07:29 36.4 C L 56 L 18 164/79 H 96 02/13/21 23:22 37.1 C 78 20 168/80 H 96 02/13/21 22:19 72 (1) Sepsis Acute renal failure type: unspecified Sepsis acute organ dysfunction status: with acute organ dysfunction Sepsis type: sepsis due to unspecified organism S raphael sepsis acute organ dysfunction type: acute renal failure Severe sepsis shock status: without septic shock Qualified Code(s): A41.9 - Sepsis, unspecified organism; R65.20 - Severe sepsis without septic shock; N17.9 - Acute kidney failure, unspecified
--- NOTE | 2021-02-14 10:03 | Orthopedic Progress Note ---
Date of Service February 14, 2021 Assessment & Plan (1) Post-operative infection: Plan: POD # 10 s/p I&D L knee (Dr. Latif), 5 weeks s/p ORIF L Tibial plateau (Dr. Smith) Continue nonweightbearing status. Apply abds over the wound daily, thigh high DOMENICA stocking. Change dressing daily after showering/bathing. PT/OT to work on knee ROM, straight leg raises, quad sets etc. Infection appears to be responding to antibiotics. Continue IV antibiotics per primary service/ID. If patient is still in house next Wednesday we will consider removing her sutures. Follow-up with Dr. Smith, Orthopedics 1 week after discharge. Admission and Anticipated Discharge Date Admission Date: February 04, 2021 Subjective This 85-year-old female seen today for follow-up of irrigation debridement of infected left knee and lower extremity. This morning patient is very pleasant and states she is in no pain. She says that she is sorry if she was not acting herself the past few days. She is alert to person and place but is not sure what day it is. She states she still has difficulty fully straightening her leg but feels that her flexion has improved. She denies fever, chills, sweats, lethargy, chest pain, shortness of breath, nausea, vomiting or diarrhea. Review of Systems Review of Systems: All systems reviewed & are unremarkable except as noted in Subjective Physical Exam Physical Exam: Left lower extremity:Sutures are intact with no active drainage or surrounding erythema. There is mild edema. There is no palpable fluctuance. Patient also has some swelling in her lower leg and calf tenderness. Patient is able to actively flex her knee to 90 degrees but is approximately 12 degrees short of terminal extension. Able to perform active dorsi and plantar flexion of her foot. She is able to perform an active assisted straight leg raise. I did apply new dressing consisting Of 3 sterile ABD pads that were held in place with her DOMENICA stockings. Results & Data ([facility]) Vital Signs (Past 12 Hours) Vital Signs Temp Pulse Pulse Pulse Resp BP Pulse Ox 02/14/21 07:29 36.4 C L 56 L 18 164/79 H 96 02/13/21 23:22 37.1 C 78 20 168/80 H 96 02/13/21 22:19 72 Laboratory Results 02/14/21 02/14/21 Range/Units 06:02 06:02 WBC 13.05 H (4.8-10.8) K/uL RBC 2.90 L (4.2-5.4) M/uL Hgb 8.2 L (12.0-16.0) g/dL Hct 25.6 L (37-47) % MCV 88.3 (80-100) fL MCH 28.3 (25-34) pg MCHC 32.0 (32-36) g/dL RDW Std Deviation 50.2 H (36.4-46.3) fL RDW Coeff of Brandan 15.6 H (11.5-14.5) % Plt Count 783 H (130-400) K/uL MPV 8.1 (7.4-10.4) fL Sodium 138 (136-145) mmol/L Potassium 3.7 (3.5-5.1) mmol/L Chloride 106 (98-107) mmol/L Carbon Dioxide 23 (21-32) mmol/L Anion Gap 9.0 (3-11) BUN 24 H (7-18) mg/dl Creatinine 1.71 H (0.6-1.2) mg/dl Est Cr Clr Drug Dosing 23.3 ml/min Est GFR ( Amer) 31.5 ml/min Est GFR (Non-Af Amer) 27.2 ml/min BUN/Creatinine Ratio 13.9 (10-20) Glucose 85 (70-99) mg/dl Calcium 9.4 (8.5-10.1) mg/dl Total Creatine Kinase 65 (26-192) U/L (1) Post-operative infection Encounter type: initial encounter Postoperative infection type: unspecified type Qualified Code(s): T81.40XA - Infection following a procedure, unspecified, initial encounter
--- NOTE | 2021-02-14 10:03 | Nephrology Progress Note ---
Date of Service February 14, 2021 Assessment & Plan Admission and Anticipated Discharge Date Admission Date: February 04, 2021 Subjective Subjective Assessment & Plan Admission and Anticipated Discharge Date Admission Date: February 04, 2021 Subjective: no new issues. Confused. PHYSICAL EXAMINATION: GENERAL: The patient is awake, but very confused and unable to give me any meaningful history. NECK: Supple. No jugular venous distention. CHEST: Bilateral basal crackles, but very hard to examine. CARDIOVASCULAR: S1 and S2, regular. ABDOMEN: Soft, nontender. EXTREMITIES: Show no edema. NEUROLOGIC: Very confused. LABORATORY TEST: Creat 1.7 better. ASSESSMENT AND PLAN: An 85-year-old female with pretty close to normal baseline kidney function, was admitted with possible infection of the recently done orthopedic surgery with MRSA bacteremia. She developed acute renal failure in the setting of above with bacteremia and multiple antibiotics exposure as well as period of hypotension. 1. Acute renal failure. This is secondary to ATN in the setting of acute infection, various antibiotic exposure as well as periods of hypotension in the initial days. She is not volume depleted and on x-ray in fact has pulmonary congestion, but does not appear she is in any respiratory distress from the breathing standpoint. Given that she is barely eating or drinking. I believe the best course of action is not to give any IV fluid and not to give any Lasix and let her stabilize on her own. No further workup is needed for the etiology of acute renal failure as this happened in the setting of bacteremia as well as hypotension, various antibiotics exposure. The diagnosis of the acute renal failure is ATN. Continue to do daily labs and daily input and output charting. Avoid MARICRUZ inhibitor, ARB, NSAIDs, contrast agents at this time. Continued renal recovery--creat even lower from yesterday. . No iv fluid and no lasix today. But she can have lasix if needed. will sign off . Call if any new issues. Results & Data ([facility]) Vital Signs (Past 12 Hours) Vital Signs Temp Pulse Pulse Pulse Resp BP Pulse Ox 02/14/21 07:29 36.4 C L 56 L 18 164/79 H 96 02/13/21 23:22 37.1 C 78 20 168/80 H 96 02/13/21 22:19 72
--- NOTE | 2021-02-14 11:25 | Cardiology Progress Note ---
Date of Service February 14, 2021 Assessment & Plan (1) Infective endocarditis: (2) Sepsis: (3) Acute kidney injury superimposed on chronic kidney disease: (4) HTN (hypertension): Plan: Patient is a complex 85-year-old female with longstanding hypertensive heart dis ease diastolic dysfunction with recent mechanical fall and subsequent surgical repair of left tibial plateau fracture with indwelling hardware. Patient presented this admission with evidence of acute surgical wound/joint infection and staph aureus bacteremia. Patient did respond relatively quickly with clearing of bacteremia within 48 hours and resolve of febrile illness. Extended antibiotic therapy expected given joint infection. Echocardiogram performed yesterday demonstrates a very small mobile structure possible vegetation along mitral valve annulus. No evidence of valve deterioration or insufficiency no findings to suggest abscess. Physical examination not remarkable for embolic phenomena however confusion and renal insufficiency will need to be followed closely Recommendations: Patient much more lucid today and overall stable from a cardiac standpoint. EKG normal without conduction abnormalities. Patient does have multiple [place] criteria for endocarditis and would recommend extended antibiotic therapy also indicated by joint infection. No changes made we will follow blood pressure Admission and Anticipated Discharge Date Admission Date: February 04, 2021 Subjective Patient seen and examined, chart, medications, telemetry reviewed. Much better orientation today. No complaints other than left knee discomfort. No fevers or chills. No cardiac complaints. No arrhythmias on telemetry Review of Systems Review of Systems: All systems reviewed & are unremarkable except as noted in Subjective Physical Exam Constitutional: well developed and well nourished; no acute distress Eyes: PERRL, conjunctivae normal, anicteric sclerae ENMT: external ear and nose normal, oropharynx normal Neck: trachea midline, no thyromegaly Respiratory: normal respiratory effort, lungs clear to auscultation Cardiovascular: Rate/Rhythm: regular rate and regular rhythm Heart Sounds: normal S1 and normal S2; no gallop, no murmur and no cardiac rub Vessels: no JVD Extremities: no edema Chest (Breasts): Chest: normal inspection of chest Gastrointestinal (Abdomen): normal bowel sounds, soft, nontender, no hepatosplenomegaly Results & Data ([facility]) Vital Signs (Past 12 Hours) Vital Signs Temp Pulse Resp BP Pulse Ox 02/14/21 07:29 36.4 C L 56 L 18 164/79 H 96 Laboratory Results Laboratory Results - last 24 hr 02/14/21 02/14/21 06:02 06:02 WBC 13.05 H RBC 2.90 L Hgb 8.2 L Hct 25.6 L MCV 88.3 MCH 28.3 MCHC 32.0 RDW Std Deviation 50.2 H RDW Coeff of Brandan 15.6 H Plt Count 783 H MPV 8.1 Sodium 138 Potassium 3.7 Chloride 106 Carbon Dioxide 23 Anion Gap 9.0 BUN 24 H Creatinine 1.71 H Est Cr Clr Drug Dosing 23.3 Est GFR ( Amer) 31.5 Est GFR (Non-Af Amer) 27.2 BUN/Creatinine Ratio 13.9 Glucose 85 Calcium 9.4 Total Creatine Kinase 65 Diagnostic Findings EKG 02/13/2021 normal sinus rhythm with normal tracing no conduction abnormality
--- NOTE | 2021-02-14 17:09 | Electrocardiogram Report ---
Test Reason : Blood Pressure : / mmHG Vent. Rate : 066 BPM Atrial Rate : 066 BPM P-R Int : 164 ms QRS Dur : 080 ms QT Int : 410 ms P-R-T Axes : 066 026 048 degrees QTc Int : 429 ms Normal sinus rhythm Normal ECG When compared with ECG of 04-FEB-2021 13:40, Vent. rate has decreased BY 39 BPM Nonspecific T wave abnormality no longer evident in Inferior leads T wave amplitude has increased in Anterior leads Confirmed by Oumar Lozano ([id number]) on 02/14/2021 5:09:06 PM Referred By: REFERRED SELF Confirmed By:Thomas Lozano
[2021-02-14] MEDS: DAPTOmycin 350 MG in SYRINGE 0 ML IV SCH (18:00)
[2021-02-14] MEDS: HALOPERIDOL LACTATE 5 MG/ML 1 ML VIAL IM PRN (20:02)
[2021-02-14] MEDS: ACETAMINOPHEN 500 MG TAB PO PRN (22:40)
[2021-02-14] MEDS: SENNA 8.6 MG TAB PO SCH (22:49)
[2021-02-14] MEDS: SERTRALINE HCL 100 MG TABLET PO SCH (22:50)
[2021-02-14] MEDS ORDERED: METOPROLOL TARTRATE 1 MG/ML VIAL IV STA (22:57)
[2021-02-15] MEDS: traMADol HCL 50 MG TABLET PO PRN ×2 (01:48→20:29)
[2021-02-15] MEDS: MELATONIN 3 MG TAB PO PRN (01:48)
[2021-02-15] MEDS: HALOPERIDOL LACTATE 5 MG/ML 1 ML VIAL IM PRN ×2 (02:08→19:40)
[2021-02-15] MEDS: LEVOTHYROXINE SODIUM 125 MCG TABLET PO SCH (06:09)
[2021-02-15 07:05] LABS: Hemoglobin 7.9 g/dL (12.0-16.0); Mean Corpuscular Hemoglobin 28.1 pg (25-34); Mean Corpuscular Hgb Conc 31.6 g/dL (32-36); Mean Platelet Volume 8.4 fL (7.4-10.4); Platelet Count 855 K/uL (130-400); RDW Coefficient of Variation 15.5 % (11.5-14.5); RDW Standard Deviation 50.6 fL (36.4-46.3); Red Blood Count 2.81 M/uL (4.2-5.4)
[2021-02-15 07:29] LABS: BUN Creatinine Ratio 16.9 (10-20); Calcium 9.4 mg/dl (8.5-10.1); Creatinine Clr Calc Pharmacy 26.3 ml/min; Est GFR (African American) 36.4 ml/min; Est GFR (Non-African American) 31.4 ml/min; Magnesium 2.1 mg/dl (1.8-2.4); Potassium 3.6 mmol/L (3.5-5.1)
[2021-02-15] MEDS: HEPARIN SOD 5,000 UNIT/0.5 ML VIAL SQ SCH ×2 (08:47→20:32)
[2021-02-15] MEDS: FAMOTIDINE 20 MG in SYRINGE 3 ML IV SCH (09:00)
[2021-02-15] MEDS: amLODIPine BESYLATE 5 MG TAB PO SCH (13:41)
[2021-02-15] MEDS: ADVANCED PROBIOTIC 1250 MG CAPSULE PO SCH (13:42)
[2021-02-15] MEDS: ATENOLOL 50 MG TABLET PO SCH (13:42)
[2021-02-15] MEDS: DOCUSATE SODIUM 100 MG CAP PO SCH ×2 (13:42→20:35)
[2021-02-15] MEDS: MAGNESIUM OXIDE 400 MG TAB PO SCH ×2 (13:43→20:32)
[2021-02-15] MEDS: PANTOprazole 40 MG TAB PO SCH ×2 (13:43→20:31)
--- NOTE | 2021-02-15 18:14 | Hospitalist Progress Note ---
Date of Service February 15, 2021 Assessment & Plan (1) Sepsis: (2) Infective endocarditis: (3) Acute kidney injury superimposed on chronic kidney disease: Plan: 85yo F with a PMH of hypertension, hyperlipidemia, CKD III, hypothyroidism and MERY not on CPAP who presents 02/04 with worsening left lower extremity pain x4 days [employer]. She is being managed for the following: #. Sepsis 2/2 left lower extremity infection in post-operative setting #. IE One month post-op s/p ORIF of left tibial plateau fracture by Dr. Smith [place] well initially but developed worsening pain, redness and swelling to the area over the past week. Was seen at ortho follow up and underwent Venous doppler of LLE that was negative for DVT Patient is alert to person at baseline. At presentation - Afebrile, HR 92, WBC 20.25 K, plt 546, ESR 87, CRP 41.90, procalcitonin 3.20, lactate 2.[address] Latif in ER - taken for emergent washout of wound (02/04) Patient tolerated procedure well, drainage and pus noted during procedure Joint aspiration, synovial fluid WBC > 238,000 Blood culture, February 04, positive for gram-positive cocci in clusters (MSSA) Repeat blood cultx -February 05, positive for gram-positive cocci 02/08 - repeated blood cultures - negative for 48 hrs S/p left knee I&D, hemovac applied (now hemovac removed) Started on empiric IV Vanco and Zosyn pre-op Pharmacy and ID consulted, daptomycin dose 500 IV daily initially , continued zosyn Given blood and synovial cultx - MSSA - switched Abx to cefazolin (02/07) Patient however developed light pink rash, and therefore cefazolin was changed to nafcillin (after discussing w/ pharmacy) 02/09-patient received Benadryl, however rash still present at lower abdomen and lower back and thighs Official ID consult obtained (02/11) -initial recommendation is cefazolin however prior provider discussed with ID physician her rash, and therefore switched to daptomycin. Per ID: 6 weeks of total ATB therapy [started 02/04]. Check CK every week while on daptomycin. Followed by indefinite doxycycline 100 mg daily given her age and the retained hardware [patient had skin rash with cefazolin] based on rediscussion with ID on 02/14. 02/13 ID updated about the new echo findings of vegetation. 02/12 Echo [given persistent bacteremia]: EF 60 to 65%, possible small mobile echodensity adherent to the posterior mitral valve annulus and area of mitral annular calcification. Cardiology consulted: Agrees with ATB per ID, repeat echocardiogram in a week time or as needed for signs of cardiac deterioration. No indication for transesophageal echo. Low threshold for cerebrovascular imaging if delirium persist. He stable from cardiac standpoint. Per ortho: PT/OT as ordered; NWB left lower extremity Change dressing daily after showering/bathing. Use walker to assist with gait/transfers Lovenox for DVT prophylaxis. Follow-up with Dr. Smith, Orthopedics 1 week after discharge. Continue with supportive care, IV antibiotics, weekly CK monitoring #. Fall at home In setting of LLE infection Fall precautions, PT/OT Patient lives at home with elderly #. Acute kidney injury superimposed on CKD III Baseline creatinine around 1 Nephrology on board: Recommends no IV fluid and no Lasix, later stabilized on her own. No further work-up is needed for etiology of acute renal failure given it occurred on the background of bacteremia/hypertension/antibiotic exposure. Daily labs. Avoid MARICRUZ inhibitor/ARB/NSAIDs/contrast agents. Creatinine improving, still elevated #. Acute blood loss anemia/status post fall and postoperative hemoglobin 7.6 on 02/05, received 1 unit of PRBCs Hgb stable Continue to closely monitor H&H #. Hypertension Continue atenolol Holding losartan in setting of MOSES cont. to monitor BP #. Hypokalemia, hypomagnesemia Replete and monitor #. Paroxysmal SVT Monitor on tele, continue atenolol #. Hypothyroidism Continue levothyroxine #. Depression Continue sertraline DVT Ppx: SQ heparin Code status: FULL PCP: Dr. Roe Dispo: Admitted to [facility]. Expect discharge in 1 to 2 days. CM working on placement. 02/14 called her son Dillon for an update, went to [email or web address], left message. Admission and Anticipated Discharge Date Admission Date: February 04, 2021 Subjective Patient was lying in bed, alert and oriented to self and person [names her son's name], NAD, on room air. No issues overnight. Patient reports some pain in her left lower extremity [PT has recently worked with her]. Patient denies any pain elsewhere/headache/other review of symptoms. Physical Exam Physical Exam: GENERAL: Alert and oriented to person. NAD, on RA. HEENT: No pallor, no icterus. Pupils equal, round and reactive to light. Oral mucosa moist. NECK: No JVD, no neck masses. HEART: S1 and S2 heard. Regular rate and rhythm. No murmur, no gallop. RESPIRATORY SYSTEM: Normal AP diameter. No accessory muscle use. No wheezing, no crackles. ABDOMEN: Soft, bowel sounds present, nontender, no distention. CENTRAL NERVOUS SYSTEM: No facial droop. Moves extremities, sensation intact, articulates clearly. EXTREMITIES: No edema, no erythema seen. LLE with clean dressing without soakage. Urinary catheter in situ with yellow urine collection. Results & Data Results & Data ([facility]) Vital Signs (Past 12 Hours) Vital Signs Temp Pulse Pulse Resp BP Pulse Ox 02/15/21 17:09 36.9 C 63 16 138/67 93 02/15/21 15:45 64 02/15/21 11:41 36.8 C 68 16 143/54 H 91 02/15/21 07:49 37.1 C 63 16 150/64 H 97 (1) Sepsis Acute renal failure type: unspecified Sepsis acute organ dysfunction status: with acute organ dysfunction Sepsis type: sepsis due to unspecified organism Maye lim sepsis acute organ dysfunction type: acute renal failure Severe sepsis shock status: without septic shock Qualified Code(s): A41.9 - Sepsis, unspecified organism; R65.20 - Severe sepsis without septic shock; N17.9 - Acute kidney failure, unspecified
[2021-02-15] MEDS: SENNA 8.6 MG TAB PO SCH (20:31)
[2021-02-15] MEDS: SERTRALINE HCL 100 MG TABLET PO SCH (20:32)
[2021-02-15] MEDS: HYDROmorphone INJ 0.5 MG/0.5 ML SYR IV PRN (23:34)
[2021-02-16] MEDS: FAMOTIDINE 20 MG in SYRINGE 3 ML IV SCH ×3 (00:15→22:39)
[2021-02-16] MEDS: HALOPERIDOL LACTATE 5 MG/ML 1 ML VIAL IM PRN ×2 (00:54→18:57)
[2021-02-16] MEDS: traMADol HCL 50 MG TABLET PO PRN (01:55)
[2021-02-16] MEDS: LEVOTHYROXINE SODIUM 125 MCG TABLET PO SCH (04:34)
[2021-02-16] MEDS: HYDROmorphone INJ 0.5 MG/0.5 ML SYR IV PRN (04:34)
[2021-02-16] MEDS: ACETAMINOPHEN 500 MG TAB PO PRN (04:57)
[2021-02-16 06:23] LABS: Hematocrit (blood only) 25.8 % (37-47); Hemoglobin 8.1 g/dL (12.0-16.0); Mean Corpuscular Hemoglobin 27.9 pg (25-34); Mean Corpuscular Hgb Conc 31.4 g/dL (32-36); Mean Platelet Volume 8.5 fL (7.4-10.4); Platelet Count 896 K/uL (130-400); RDW Coefficient of Variation 15.5 % (11.5-14.5); RDW Standard Deviation 50.7 fL (36.4-46.3); White Blood Count 12.51 K/uL (4.8-10.8)
[2021-02-16 06:45] LABS: BUN Creatinine Ratio 18.5 (10-20); Calcium 9.3 mg/dl (8.5-10.1); Est GFR (African American) 37.6 ml/min; Est GFR (Non-African American) 32.4 ml/min; Potassium 3.7 mmol/L (3.5-5.1)
[2021-02-16] MEDS: HEPARIN SOD 5,000 UNIT/0.5 ML VIAL SQ SCH ×2 (07:48→22:36)
[2021-02-16] MEDS: ADVANCED PROBIOTIC 1250 MG CAPSULE PO SCH (07:49)
[2021-02-16] MEDS: MAGNESIUM OXIDE 400 MG TAB PO SCH ×2 (07:49→22:34)
[2021-02-16] MEDS: DOCUSATE SODIUM 100 MG CAP PO SCH ×2 (07:49→22:34)
[2021-02-16] MEDS: ATENOLOL 50 MG TABLET PO SCH (07:49)
[2021-02-16] MEDS: amLODIPine BESYLATE 5 MG TAB PO SCH (07:49)
[2021-02-16] MEDS: PANTOprazole 40 MG TAB PO SCH ×2 (07:49→22:34)
--- NOTE | 2021-02-16 15:14 | Hospitalist Progress Note ---
Date of Service February 16, 2021 Assessment & Plan (1) Sepsis: (2) Infective endocarditis: (3) Acute kidney injury superimposed on chronic kidney disease: Plan: 85yo F with a PMH of hypertension, hyperlipidemia, CKD III, hypothyroidism and MERY not on CPAP who presents 02/04 with worsening left lower extremity pain x4 days [employer]. She is being managed for the following: #. Sepsis 2/2 left lower extremity infection in post-operative setting #. IE One month post-op s/p ORIF of left tibial plateau fracture by Dr. Smith [place] well initially but developed worsening pain, redness and swelling to the area over the past week. Was seen at ortho follow up and underwent Venous doppler of LLE that was negative for DVT Patient is alert to person at baseline. At presentation - Afebrile, HR 92, WBC 20.25 K, plt 546, ESR 87, CRP 41.90, procalcitonin 3.20, lactate 2.[address] Latif in ER - taken for emergent washout of wound (02/04) Patient tolerated procedure well, drainage and pus noted during procedure Joint aspiration, synovial fluid WBC > 238,000 Blood culture, February 04, positive for gram-positive cocci in clusters (MSSA) Repeat blood cultx -February 05, positive for gram-positive cocci 02/08 - repeated blood cultures - negative for 48 hrs S/p left knee I&D, hemovac applied (now hemovac removed) Started on empiric IV Vanco and Zosyn pre-op Pharmacy and ID consulted, daptomycin dose 500 IV daily initially , continued zosyn Given blood and synovial cultx - MSSA - switched Abx to cefazolin (02/07) Patient however developed light pink rash, and therefore cefazolin was changed to nafcillin (after discussing w/ pharmacy) 02/09-patient received Benadryl, however rash still present at lower abdomen and lower back and thighs Official ID consult obtained (02/11) -initial recommendation is cefazolin however prior provider discussed with ID physician her rash, and therefore switched to daptomycin. Per ID: 6 weeks of total ATB therapy [started 02/04]. Check CK every week while on daptomycin. Followed by indefinite doxycycline 100 mg daily given her age and the retained hardware [patient had skin rash with cefazolin] based on rediscussion with ID on 02/14. 02/13 ID updated about the new echo findings of vegetation. 02/12 Echo [given persistent bacteremia]: EF 60 to 65%, possible small mobile echodensity adherent to the posterior mitral valve annulus and area of mitral annular calcification. Cardiology consulted: Agrees with ATB per ID, repeat echocardiogram in a week time or as needed for signs of cardiac deterioration. No indication for transesophageal echo. Low threshold for cerebrovascular imaging if delirium persist. Is stable from cardiac standpoint. Per ortho: PT/OT as ordered; NWB left lower extremity Change dressing daily after showering/bathing. Use walker to assist with gait/transfers Lovenox for DVT prophylaxis. Follow-up with Dr. Smith, Orthopedics 1 week after discharge. Continue with supportive care, IV antibiotics, weekly CK monitoring #. Fall at home In setting of LLE infection Fall precautions, PT/OT Patient lives at home with elderly #. Acute kidney injury superimposed on CKD III Baseline creatinine around 1 Nephrology on board: Recommends no IV fluid and no Lasix, later stabilized on her own. No further work-up is needed for etiology of acute renal failure given it occurred on the background of bacteremia/hypertension/antibiotic exposure. Daily labs. Avoid MARICRUZ inhibitor/ARB/NSAIDs/contrast agents. Creatinine improving, still elevated #. Acute blood loss anemia/status post fall and postoperative hemoglobin 7.6 on 02/05, received 1 unit of PRBCs Hgb stable Continue to closely monitor H&H #. Hypertension Continue atenolol Holding losartan in setting of MOSES cont. to monitor BP #. Hypokalemia, hypomagnesemia Replete and monitor #. Paroxysmal SVT Monitor on tele, continue atenolol #. Hypothyroidism Continue levothyroxine #. Depression Continue sertraline DVT Ppx: SQ heparin Code status: FULL PCP: Dr. Roe Dispo: Admitted to [facility]. At baseline and is stable, can be discharged when placement available. CM working on placement. 02/14 called her son Dillon for an update, went to [email or web address], left message. Admission and Anticipated Discharge Date Admission Date: February 04, 2021 Subjective Patient was lying in bed, alert and oriented to self and person [names her son's name], NAD, on room air. No issues overnight. Patient sleepy but easily arousable. Per RN was agitated overnight and has not had her breakfast today morning. Patient denies any pain /headache/other review of symptoms. Physical Exam Physical Exam: GENERAL: Alert and oriented to person. NAD, on RA. HEENT: No pallor, no icterus. Pupils equal, round and reactive to light. Oral mucosa moist. NECK: No JVD, no neck masses. HEART: S1 and S2 heard. Regular rate and rhythm. No murmur, no gallop. RESPIRATORY SYSTEM: Normal AP diameter. No accessory muscle use. No wheezing, no crackles. ABDOMEN: Soft, bowel sounds present, nontender, no distention. CENTRAL NERVOUS SYSTEM: No facial droop. Moves extremities, sensation intact, articulates clearly. EXTREMITIES: No edema, no erythema seen. LLE with clean dressing without soakage. Urinary catheter in situ with yellow urine collection. Results & Data Results & Data ([facility]) Vital Signs (Past 12 Hours) Vital Signs Temp Pulse Resp BP Pulse Ox 02/16/21 07:57 36.7 C 83 16 158/76 H 92 (1) Sepsis Acute renal failure type: unspecified Sepsis acute organ dysfunction status: with acute organ dysfunction Sepsis type: sepsis due to unspecified organism Severe sepsis acute organ dysfunction type: acute renal failure Severe sepsis shock status: without septic shock Qualified Code(s): A41.9 - Sepsis, unspe cified organism; R65.20 - Severe sepsis without septic shock; N17.9 - Acute kidney failure, unspecified
[2021-02-16] MEDS: DAPTOmycin 350 MG in SYRINGE 0 ML IV SCH (16:36)
[2021-02-16] MEDS: SENNA 8.6 MG TAB PO SCH (22:35)
[2021-02-16] MEDS: SERTRALINE HCL 100 MG TABLET PO SCH (22:35)
[2021-02-17] MEDS: ACETAMINOPHEN 500 MG TAB PO PRN (00:17)
[2021-02-17] MEDS: HALOPERIDOL LACTATE 5 MG/ML 1 ML VIAL IM PRN (03:16)
[2021-02-17] MEDS: HYDROmorphone INJ 0.5 MG/0.5 ML SYR IV PRN ×2 (05:00→22:07)
[2021-02-17] MEDS: LEVOTHYROXINE SODIUM 125 MCG TABLET PO SCH (05:01)
[2021-02-17 06:58] LABS: Hematocrit (blood only) 26.1 % (37-47); Hemoglobin 8.2 g/dL (12.0-16.0); Mean Corpuscular Hemoglobin 27.7 pg (25-34); Mean Corpuscular Hgb Conc 31.4 g/dL (32-36); Mean Corpuscular Volume 88.2 fL (80-100); Mean Platelet Volume 8.4 fL (7.4-10.4); Platelet Count 819 K/uL (130-400); RDW Coefficient of Variation 15.8 % (11.5-14.5); RDW Standard Deviation 50.6 fL (36.4-46.3); Red Blood Count 2.96 M/uL (4.2-5.4); White Blood Count 12.07 K/uL (4.8-10.8)
[2021-02-17 07:14] LABS: BUN Creatinine Ratio 22.3 (10-20); Calcium 9.3 mg/dl (8.5-10.1); Creatinine Clr Calc Pharmacy 27.3 ml/min; Est GFR (African American) 38.2 ml/min; Est GFR (Non-African American) 32.9 ml/min; Potassium 3.9 mmol/L (3.5-5.1)
[2021-02-17] MEDS: DOCUSATE SODIUM 100 MG CAP PO SCH ×2 (10:16→21:35)
[2021-02-17] MEDS: FAMOTIDINE 20 MG in SYRINGE 3 ML IV SCH ×2 (10:16→21:35)
[2021-02-17] MEDS: ADVANCED PROBIOTIC 1250 MG CAPSULE PO SCH (10:16)
[2021-02-17] MEDS: amLODIPine BESYLATE 5 MG TAB PO SCH (10:16)
[2021-02-17] MEDS: ATENOLOL 50 MG TABLET PO SCH (10:16)
[2021-02-17] MEDS: HEPARIN SOD 5,000 UNIT/0.5 ML VIAL SQ SCH ×2 (10:16→21:37)
[2021-02-17] MEDS: MAGNESIUM OXIDE 400 MG TAB PO SCH ×2 (10:17→21:36)
[2021-02-17] MEDS: PANTOprazole 40 MG TAB PO SCH ×2 (10:17→21:36)
--- NOTE | 2021-02-17 12:18 | Nephrology Progress Note ---
Date of Service February 17, 2021 Assessment & Plan Admission and Anticipated Discharge Date Admission Date: February 04, 2021 Subjective up most of the night; agitated easily Review of Systems Review of Systems: Unobtainable due to cognitive status Physical Exam Constitutional: well developed and well nourished lying flat on RA Eyes: EOM intact bilaterally ENMT: Ears: no external ear abnormality Nose: no external nose abnormality Mouth: + dry oral mucous membranes Neck: no nuchal rigidity Respiratory: normal respiratory effort Auscultation: + diminished lung sounds Cardiovascular: Rate/Rhythm: regular rate and regular rhythm Heart Sounds: normal S1 and normal S2 Extremities: no edema Gastrointestinal (Abdomen): Inspection/Auscultation: normal bowel sounds Percussion/Palpation: abdomen soft; abdomen nontender Musculoskeletal: Extremities: strength 5/5 throughout Skin: no rashes, warm and dry Neurologic: shine, fluent speech, no tremor Results & Data ([facility]) Vital Signs (Past 12 Hours) Vital Signs Pulse Pulse Resp BP Pulse Ox 02/17/21 08:00 60 02/17/21 06:26 67 20 154/76 H 95 Laboratory Results 02/17/21 06:41 02/17/21 06:41
--- NOTE | 2021-02-17 16:52 | Hospitalist Progress Note ---
Date of Service February 17, 2021 Assessment & Plan (1) Sepsis: (2) Infection: (3) Fall: (4) Acute kidney injury superimposed on chronic kidney disease: (5) PSVT (paroxysmal supraventricular tachycardia): (6) HTN (hypertension): (7) Hypothyroidism: (8) HLD (hyperlipidemia): (9) MERY (obstructive sleep apnea): Plan: #. Sepsis 2/2 left lower extremity infection in post-operative setting #. IE One month post-op s/p ORIF of left tibial plateau fracture by Dr. Smith [place] well initially but developed worsening pain, redness and swelling to the area over the past week. Was seen at ortho follow up and underwent Venous doppler of LLE that was negative for DVT Patient is alert to person at baseline. At presentation - Afebrile, HR 92, WBC 20.25 K, plt 546, ESR 87, CRP 41.90, procalcitonin 3.20, lactate 2.[address] Latif in ER - taken for emergent washout of wound (02/04) Patient tolerated procedure well, drainage and pus noted during procedure Joint aspiration, synovial fluid WBC > 238,000 Blood culture, February 04, positive for gram-positive cocci in clusters (MSSA) Repeat blood cultx -February 05, positive for gram-positive cocci 02/08 - repeated blood cultures - negative for 48 hrs S/p left knee I&D, hemovac applied (now hemovac removed) Started on empiric IV Vanco and Zosyn pre-op Pharmacy and ID consulted, daptomycin dose 500 IV daily initially , continued zosyn Given blood and synovial cultx - MSSA - switched Abx to cefazolin (02/07) Patient however developed light pink rash, and therefore cefazolin was changed to nafcillin (after discussing w/ pharmacy) 02/09-patient received Benadryl, however rash still present at lower abdomen and lower back and thighs Official ID consult obtained (02/11) -initial recommendation is cefazolin however prior provider discussed with ID physician her rash, and therefore switched to daptomycin. Per ID: 6 weeks of total ATB therapy [started 02/04]. Check CK every week while on daptomycin. Followed by indefinite doxycycline 100 mg daily given her age and the retained hardware [patient had skin rash with cefazolin] based on rediscussion with ID on 02/14. 02/13 ID updated about the new echo findings of vegetation. 02/12 Echo [given persistent bacteremia]: EF 60 to 65%, possible small mobile echodensity adherent to the posterior mitral valve annulus and area of mitral annular calcification. Cardiology consulted: Agrees with ATB per ID, repeat echocardiogram in a week time or as needed for signs of cardiac deterioration. No indication for transesophageal echo. Low threshold for cerebrovascular imaging if delirium persist. Is stable from cardiac standpoint. Per ortho: PT/OT as ordered; NWB left lower extremity Change dressing daily after showering/bathing. Use walker to assist with gait/transfers Lovenox for DVT prophylaxis. Follow-up with Dr. Smith, Orthopedics 1 week after discharge. Continue with supportive care, IV antibiotics, weekly CK monitoring #. Fall at home In setting of LLE infection Fall precautions, PT/OT Patient lives at home with elderly #. Acute kidney injury superimposed on CKD III Baseline creatinine around 1 Nephrology on board: Recommends no IV fluid and no Lasix, later stabilized on her own. No further work-up is needed for etiology of acute renal failure given it occurred on the background of bacteremia/hypertension/antibiotic exposure. Daily labs. Avoid MARICRUZ inhibitor/ARB/NSAIDs/contrast agents. Creatinine improving, still elevated #. Acute blood loss anemia/status post fall and postoperative hemoglobin 7.6 on 02/05, received 1 unit of PRBCs Hgb stable Continue to closely monitor H&H #. Hypertension Continue atenolol Holding losartan in setting of MOSES cont. to monitor BP #. Hypokalemia, hypomagnesemia Replete and monitor #. Paroxysmal SVT Monitor on tele, continue atenolol #. Hypothyroidism Continue levothyroxine #. Depression Continue sertraline DVT Ppx: SQ heparin Code status: FULL PCP: Dr. Roe Dispo: Admitted to [facility]. At baseline and is stable, can be discharged when placement available. CM working on placement. 02/14 called her son Dillon for an update, went to [email or web address], left message. Admission and Anticipated Discharge Date Admission Date: February 04, 2021 Subjective Patient was sitting up in bed, ready to get started with physical therapy, on room air, NAD. Patient denied any pain/shortness of breath/discomfort/other review of symptoms. Patient was at her baseline mentation de [place] ve[place]. Physical Exam Physical Exam: GENERAL: Alert and oriented to person. NAD, on RA. HEENT: No pallor, no icterus. Pupils equal, round and reactive to light. Oral mucosa moist. NECK: No JVD, no neck masses. HEART: S1 and S2 heard. Regular rate and rhythm. No murmur, no gallop. RESPIRATORY SYSTEM: Normal AP diameter. No accessory muscle use. No wheezing, no crackles. ABDOMEN: Soft, bowel sounds present, nontender, no distention. CENTRAL NERVOUS SYSTEM: No facial droop. Moves extremities, sensation intact, articulates clearly. EXTREMITIES: No edema, no erythema seen. LLE with clean clean and well-healing sutured wound. Urinary catheter in situ with yellow urine collection. Results & Data Results & Data ([facility]) Vital Signs (Past 12 Hours) Vital Signs Pulse Pulse Resp BP Pulse Ox 02/17/21 16:00 62 02/17/21 08:00 60 02/17/21 06:26 67 20 154/76 H 95 (1) Fall Encounter type: initial encounter Qualified Code(s): W19.XXXA - Unspecified fall, initial encounter
[2021-02-17] MEDS: SENNA 8.6 MG TAB PO SCH (21:35)
[2021-02-17] MEDS: SERTRALINE HCL 100 MG TABLET PO SCH (21:36)
[2021-02-18] MEDS: HYDROmorphone INJ 0.5 MG/0.5 ML SYR IV PRN (03:23)
[2021-02-18] MEDS: LEVOTHYROXINE SODIUM 125 MCG TABLET PO SCH (05:49)
[2021-02-18] MEDS: FAMOTIDINE 20 MG in SYRINGE 3 ML IV SCH ×2 (09:17→22:15)
[2021-02-18] MEDS: amLODIPine BESYLATE 5 MG TAB PO SCH (09:18)
[2021-02-18] MEDS: PANTOprazole 40 MG TAB PO SCH ×2 (09:18→21:13)
[2021-02-18] MEDS: DOCUSATE SODIUM 100 MG CAP PO SCH ×2 (09:18→21:08)
[2021-02-18] MEDS: ATENOLOL 50 MG TABLET PO SCH (09:19)
[2021-02-18] MEDS: MAGNESIUM OXIDE 400 MG TAB PO SCH ×2 (09:19→21:13)
[2021-02-18] MEDS: ADVANCED PROBIOTIC 1250 MG CAPSULE PO SCH (09:19)
[2021-02-18] MEDS: HEPARIN SOD 5,000 UNIT/0.5 ML VIAL SQ SCH ×2 (09:19→21:13)
--- NOTE | 2021-02-18 10:30 | Orthopedic Progress Note ---
Date of Service February 18, 2021 Assessment & Plan (1) Post-operative infection: Plan: POD 14 - s/p I&D left knee joint and left tibia postop infection continue NWB LLE continue antibiotics as instructed/ordered. Allowed for full ROM left knee/LLE. Encouraged ROM of left knee today. Allowed out of bed to chair with assistance Tylenol PRN pain. Sutures removed today, steri-strips applied. Will continue to follow as needed while inpatient. Rescheduled post op follow up to approximately 2 weeks from now. Okay for discharge from ortho standpoint when medically stable/bed available at facility Admission and Anticipated Discharge Date Admission Date: February 04, 2021 Subjective Patient doing well, seems to be less confused at this time. No pain in left knee, unless with movement. Physical Exam Musculoskeletal: Exam of left knee/lower leg: Incision clean, dry and intact. No effusion left knee. mild ecchymosis, no edema LLE. No surrounding erythema. No active drainage, incision healed, retained sutures. Stiffness in left knee, extends to about 15-20 degrees, tolerates passive flexion to approximately 80 degrees. No distal edema, sensation normal. Full ankle dorsiflexion/plantarflexion. Results & Data ([facility]) Vital Signs (Past 12 Hours) Vital Signs Temp Pulse Pulse Resp BP BP Pulse Ox 02/18/21 07:16 36.9 C 76 16 148/64 H 94 02/18/21 04:00 36.9 C 77 18 130/71 93 02/18/21 01:00 72 02/17/21 23:00 36.8 C 73 18 146/73 H 96 (1) Post-operative infection Encounter type: initial encounter Postoperative infection type: unspecified type Qualified Code(s): T81.40XA - Infection following a procedure, unspecified, initial encounter
[2021-02-18] MEDS: ACETAMINOPHEN 500 MG TAB PO PRN (16:18)
[2021-02-18] MEDS: traMADol HCL 50 MG TABLET PO PRN (16:18)
[2021-02-18] MEDS: DAPTOmycin 350 MG in SYRINGE 0 ML IV SCH (16:23)
--- NOTE | 2021-02-18 18:42 | Hospitalist Progress Note ---
Date of Service February 18, 2021 Assessment & Plan (1) Sepsis: (2) Infection: (3) Fall: (4) Acute kidney injury superimposed on chronic kidney disease: (5) PSVT (paroxysmal supraventricular tachycardia): (6) HTN (hypertension): (7) Hypothyroidism: (8) HLD (hyperlipidemia): (9) MERY (obstructive sleep apnea): Plan: #. Sepsis 2/2 left lower extremity infection in post-operative setting #. IE One month post-op s/p ORIF of left tibial plateau fracture by Dr. Smith [place] well initially but developed worsening pain, redness and swelling to the area over the past week. Was seen at ortho follow up and underwent Venous doppler of LLE that was negative for DVT Patient is alert to person at baseline. At presentation - Afebrile, HR 92, WBC 20.25 K, plt 546, ESR 87, CRP 41.90, procalcitonin 3.20, lactate 2.[address] Latif in ER - taken for emergent washout of wound (02/04) Patient tolerated procedure well, drainage and pus noted during procedure Joint aspiration, synovial fluid WBC > 238,000 Blood culture, February 04, positive for gram-positive cocci in clusters (MSSA) Repeat blood cultx -February 05, positive for gram-positive cocci 02/08 - repeated blood cultures - negative for 48 hrs S/p left knee I&D, hemovac applied (now hemovac removed) Started on empiric IV Vanco and Zosyn pre-op Pharmacy and ID consulted, daptomycin dose 500 IV daily initially , continued zosyn Given blood and synovial cultx - MSSA - switched Abx to cefazolin (02/07) Patient however developed light pink rash, and therefore cefazolin was changed to nafcillin (after discussing w/ pharmacy) 02/09-patient received Benadryl, however rash still present at lower abdomen and lower back and thighs Official ID consult obtained (02/11) -initial recommendation is cefazolin however prior provider discussed with ID physician her rash, and therefore switched to daptomycin. Per ID: 6 weeks of total ATB therapy [started 02/04]. Check CK every week while on daptomycin. Followed by indefinite doxycycline 100 mg daily given her age and the retained hardware [patient had skin rash with cefazolin] based on rediscussion with ID on 02/14. 02/13 ID updated about the new echo findings of vegetation. 02/12 Echo [given persistent bacteremia]: EF 60 to 65%, possible small mobile echodensity adherent to the posterior mitral valve annulus and area of mitral annular calcification. Cardiology consulted: Agrees with ATB per ID, repeat echocardiogram in a week time or as needed for signs of cardiac deterioration. No indication for transesophageal echo. Low threshold for cerebrovascular imaging if delirium persist. Is stable from cardiac standpoint. Per ortho: PT/OT as ordered; NWB left lower extremity Change dressing daily after showering/bathing. Use walker to assist with gait/transfers Lovenox for DVT prophylaxis. Follow-up with Dr. Smith, Orthopedics 1 week after discharge. Continue with supportive care, IV antibiotics, weekly CK monitoring #. Fall at home In setting of LLE infection Fall precautions, PT/OT Patient lives at home with elderly #. Acute kidney injury superimposed on CKD III Baseline creatinine around 1 Nephrology on board: Recommends no IV fluid and no Lasix, later stabilized on her own. No further work-up is needed for etiology of acute renal failure given it occurred on the background of bacteremia/hypertension/antibiotic exposure. Daily labs. Avoid MARICRUZ inhibitor/ARB/NSAIDs/contrast agents. Creatinine improving, still elevated #. Acute blood loss anemia/status post fall and postoperative hemoglobin 7.6 on 02/05, received 1 unit of PRBCs Hgb stable Continue to closely monitor H&H #. Hypertension Continue atenolol Holding losartan in setting of MOSES cont. to monitor BP #. Hypokalemia, hypomagnesemia Replete and monitor #. Paroxysmal SVT Monitor on tele, continue atenolol #. Hypothyroidism Continue levothyroxine #. Depression Continue sertraline DVT Ppx: SQ heparin Code status: FULL PCP: Dr. Roe Dispo: Admitted to [facility]. At baseline and is stable, can be discharged when placement available. CM working on placement. Her son Dillon updated, answered all questions, voiced understanding and agreeable to plan of care Admission and Anticipated Discharge Date Admission Date: February 04, 2021 Subjective Patient was lying in bed, sleeping, NAD, on room air. Per RN, no acute events overnight and patient is eating. Patient denies any pain/headache/any other review of symptoms. Patient at her baseline. Physical Exam Physical Exam: GENERAL: Alert and oriented to person. NAD, on RA. HEENT: No pallor, no icterus. Pupils equal, round and reactive to light. Oral mucosa moist. NECK: No JVD, no neck masses. HEART: S1 and S2 heard. Regular rate and rhythm. No murmur, no gallop. RESPIRATORY SYSTEM: Normal AP diameter. No accessory muscle use. No wheezing, no crackles. ABDOMEN: Soft, bowel sounds present, nontender, no distention. CENTRAL NERVOUS SYSTEM: No facial droop. Moves extremities, sensation intact, articulates clearly. EXTREMITIES: No edema, no erythema seen. LLE clean well-healing incision, sutures removed. Urinary catheter in situ with yellow urine collection. We will remove the urinary catheter today. Results & Data Results & Data ([facility]) Vital Signs (Past 12 Hours) Vital Signs Temp Pulse Pulse Resp BP Pulse Ox 02/18/21 15:00 85 02/18/21 14:57 37.0 C 71 20 149/74 H 97 02/18/21 08:00 78 02/18/21 07:16 36.9 C 76 16 148/64 H 94 (1) Fall Encounter type: initial encounter Qualified Code(s): W19.XXXA - Unspecified fall, initial encounter
[2021-02-18] MEDS: SENNA 8.6 MG TAB PO SCH (21:08)
[2021-02-18] MEDS: SERTRALINE HCL 100 MG TABLET PO SCH (21:13)
[2021-02-19] MEDS: LEVOTHYROXINE SODIUM 125 MCG TABLET PO SCH (05:58)
[2021-02-19] MEDS: ACETAMINOPHEN 500 MG TAB PO PRN ×2 (06:48→18:05)
[2021-02-19] MEDS: FAMOTIDINE 20 MG in SYRINGE 3 ML IV SCH ×2 (07:31→20:37)
[2021-02-19] MEDS: ATENOLOL 50 MG TABLET PO SCH (07:32)
[2021-02-19] MEDS: ADVANCED PROBIOTIC 1250 MG CAPSULE PO SCH (07:32)
[2021-02-19] MEDS: amLODIPine BESYLATE 5 MG TAB PO SCH (07:32)
[2021-02-19] MEDS: PANTOprazole 40 MG TAB PO SCH ×2 (07:33→20:37)
[2021-02-19] MEDS: MAGNESIUM OXIDE 400 MG TAB PO SCH ×2 (07:33→20:37)
[2021-02-19] MEDS: HEPARIN SOD 5,000 UNIT/0.5 ML VIAL SQ SCH ×2 (07:35→20:37)
[2021-02-19] MEDS: DOCUSATE SODIUM 100 MG CAP PO SCH ×2 (07:37→20:37)
[2021-02-19 07:49] LABS: Est GFR (African American) 56.9 ml/min; Est GFR (Non-African American) 49.1 ml/min
--- NOTE | 2021-02-19 17:28 | Hospitalist Progress Note ---
Date of Service February 19, 2021 Assessment & Plan (1) Sepsis: (2) Infection: (3) Fall: (4) Acute kidney injury superimposed on chronic kidney disease: (5) PSVT (paroxysmal supraventricular tachycardia): (6) HTN (hypertension): (7) Hypothyroidism: (8) HLD (hyperlipidemia): (9) MERY (obstructive sleep apnea): Plan: #. Sepsis 2/2 left lower extremity infection in post-operative setting #. IE tolerating antibiotics well continue Daptomycin IV (to complete 6 weeks total) follow Ortho recs #. Fall at home In setting of LLE infection Fall precautions, PT/OT Patient lives at home with elderly -- awaiting acceptance to SNF/Rehab #. Acute kidney injury superimposed on CKD III Baseline creatinine around 1 Nephrology on board: Recommends no IV fluid and no Lasix, later stabilized on h er own. No further work-up is needed for etiology of acute renal failure given it occurred on the background of bacteremia/hypertension/antibiotic exposure. Daily labs. Avoid MARICRUZ inhibitor/ARB/NSAIDs/contrast agents. -- crea now back to baseline 1.05 #. Acute blood loss anemia/status post fall and postoperative hemoglobin 7.6 on 02/05, received 1 unit of PRBCs -- Hg stable at ~8 #. Hypertension Continue atenolol -- resume Losartan #. Hypokalemia, hypomagnesemia Replete and monitor #. Paroxysmal SVT Monitor on tele, continue atenolol #. Hypothyroidism Continue levothyroxine #. Depression Continue sertraline DVT Ppx: SQ heparin Code status: FULL PCP: Dr. Roe Dispo: awaiting acceptance to SNF/Rehab Admission and Anticipated Discharge Date Admission Date: February 04, 2021 Subjective ff up for left knee infection, s/p Surgery etc seen resting in bed, comfortable not in distress reports minimal l knee discomfort no chest pain, dyspnea, palpitations, dizziness appetite poor today, encouraged no other symptoms Review of Systems Review of Systems: all noted and negative except for above Physical Exam Physical Exam: General- oriented x 1-2, not in distress, speaks in sentences with no effort or accessory muscle use Head- atraumatic Eyes- PERRL, EOMI, anicteric ENT- oropharynx clear Neck- supple, no JVD, no adenopathy, no thyromegaly; carotids +2/2, no bruits appreciated Lungs- clear to auscultation bilaterally, no rales/wheezes Heart- normal rate, regular rhythm; no murmur, no gallop, no rub appreciated Abdomen- normal bowel sounds, nondistended, soft, nontender, no masses or hepatosplenomegaly Extremities- l knee: wound healing well, no bleeding/discharge, mild edema,no tenderness no pretibial edema, no calf tenderness; peripheral pulses intact Neuro- alert, oriented x 3; CN 2-12 grossly intact; motor 5/5 bilaterally;sensation 100% on all extremities; no other gross focal neurologic deficits Skin- warm & dry Results & Data Results & Data ([facility]) Vital Signs (Past 12 Hours) Vital Signs Temp Pulse Pulse Resp BP BP Pulse Ox 02/19/21 16:00 67 02/19/21 15:14 37.3 C 75 18 156/71 H 93 02/19/21 11:25 36.4 C L 59 L 59 L 18 146/64 H 146/64 H 92 02/19/21 08:00 61 02/19/21 06:43 36.8 C 70 18 169/73 H 96 all noted and reviewed including below (1) Fall Encounter type: initial encounter Qualified Code(s): W19.XXXA - Unspecified fall, initial encounter
[2021-02-19] MEDS: LOSARTAN POTASSIUM 25 MG TAB PO SCH (18:02)
[2021-02-19] MEDS: SENNA 8.6 MG TAB PO SCH (20:37)
[2021-02-19] MEDS: SERTRALINE HCL 100 MG TABLET PO SCH (20:37)
[2021-02-20] MEDS: ACETAMINOPHEN 500 MG TAB PO PRN (06:00)
[2021-02-20] MEDS: LEVOTHYROXINE SODIUM 125 MCG TABLET PO SCH (06:00)
[2021-02-20 06:19] LABS: Creatinine Clr Calc Pharmacy 40.3 ml/min; Est GFR (African American) 61.1 ml/min; Est GFR (Non-African American) 52.7 ml/min
[2021-02-20] MEDS: traMADol HCL 50 MG TABLET PO PRN ×2 (06:36→19:51)
[2021-02-20] MEDS: FAMOTIDINE 20 MG in SYRINGE 3 ML IV SCH (09:31)
[2021-02-20 10:10] LABS: Basophils # (auto) 0.03 K/uL (0-0.2); Basophils % (auto) 0.4 %; Eosinophils % (auto) 1.5 %; Hematocrit (blood only) 25.7 % (37-47); Hemoglobin 7.9 g/dL (12.0-16.0); Immature Granulocytes # (auto) 0.02 K/uL (0.00-0.02); Immature Granulocytes % (auto) 0.3 %; Lymphocytes # (auto) 1.05 K/uL (1.2-3.4); Lymphocytes % (auto) 15.3 %; Mean Corpuscular Hemoglobin 27.3 pg (25-34); Mean Corpuscular Hgb Conc 30.7 g/dL (32-36); Mean Corpuscular Volume 88.9 fL (80-100); Mean Platelet Volume 8.3 fL (7.4-10.4); Monocytes # (auto) 0.79 K/uL (0.11-0.59); Monocytes % (auto) 11.5 %; Neutrophils # (auto) 4.89 K/uL (1.4-6.5); Platelet Count 607 K/uL (130-400); RDW Coefficient of Variation 16.2 % (11.5-14.5); RDW Standard Deviation 52.7 fL (36.4-46.3); Red Blood Count 2.89 M/uL (4.2-5.4); White Blood Count 6.88 K/uL (4.8-10.8)
[2021-02-20 10:45] LABS: Hypochromasia Present
[2021-02-20] MEDS: amLODIPine BESYLATE 5 MG TAB PO SCH (12:41)
[2021-02-20] MEDS: ADVANCED PROBIOTIC 1250 MG CAPSULE PO SCH (12:42)
[2021-02-20] MEDS: HEPARIN SOD 5,000 UNIT/0.5 ML VIAL SQ SCH ×2 (12:42→19:55)
[2021-02-20] MEDS: DOCUSATE SODIUM 100 MG CAP PO SCH ×2 (12:42→19:54)
[2021-02-20] MEDS: ATENOLOL 50 MG TABLET PO SCH (12:42)
[2021-02-20] MEDS: LOSARTAN POTASSIUM 25 MG TAB PO SCH (12:42)
[2021-02-20] MEDS: PANTOprazole 40 MG TAB PO SCH ×2 (12:43→19:55)
[2021-02-20] MEDS: MAGNESIUM OXIDE 400 MG TAB PO SCH ×2 (12:43→19:52)
[2021-02-20] MEDS: DAPTOmycin 350 MG in SYRINGE 0 ML IV SCH (14:00)
--- NOTE | 2021-02-20 15:41 | Hospitalist Progress Note ---
Date of Service February 20, 2021 Assessment & Plan (1) Sepsis: (2) Infection: (3) Fall: (4) Acute kidney injury superimposed on chronic kidney disease: (5) PSVT (paroxysmal supraventricular tachycardia): (6) HTN (hypertension): (7) Hypothyroidism: (8) HLD (hyperlipidemia): (9) MERY (obstructive sleep apnea): Plan: #. Sepsis 2/2 left lower extremity infection in post-operative setting #. IE tolerating antibiotics well continue Daptomycin IV (to complete 6 weeks total) follow Ortho recs -- remains stable overall #. Fall at home In setting of LLE infection Fall precautions, PT/OT Patient lives at home with elderly -- awaiting acceptance to SNF/Rehab #. Acute kidney injury superimposed on CKD III Baseline creatinine around 1 Nephrology on board: Recommends no IV fluid and no Lasix, later stabilized on her own. No further work-up is needed for etiology of acute renal failure given it occurred on the background of bacteremia/hypertension/antibiotic exposure. Daily labs. Avoid MARICRUZ inhibitor/ARB/NSAIDs/contrast agents. -- crea now back to baseline 1.05 #. Acute blood loss anemia/status post fall and postoperative hemoglobin 7.6 on 02/05, received 1 unit of PRBCs -- Hg stable at ~8 #. Hypertension Continue atenolol -- resume Losartan #. Hypokalemia, hypomagnesemia Replete and monitor #. Paroxysmal SVT Monitor on tele, continue atenolol #. Hypothyroidism Continue levothyroxine #. Depression Continue sertraline DVT Ppx: SQ heparin Code status: FULL PCP: Dr. Roe Dispo: awaiting acceptance to SNF/Rehab Admission and Anticipated Discharge Date Admission Date: February 04, 2021 Subjective ff up for left knee infection seen sitting up in bed, comfortable states she feels fine overall pleasantly confused no chest pain, dyspnea, palpitations, dizziness minimal knee pain no other symptoms Review of Systems Review of Systems: all noted and negative except for above Physical Exam Physical Exam: General- oriented x 0, not in distress, speaks in sentences with no effort or accessory muscle use Eyes- anicteric Neck- no JVD Lungs- clear breath sounds bilaterally, no rales/wheezes Heart- normal rate, regular rhythm; no murmurs Abdomen- normal bowel sounds, nondistended, soft, nontender Extremities- no pretibial edema, no calf tenderness left knee: wound healing well, (+) mild edema Neuro- alert, oriented x 0; no gross focal neurologic deficits Skin- warm & dry Results & Data Results & Data ([facility]) Vital Signs (Past 12 Hours) Vital Signs Temp Pulse Pulse Resp BP Pulse Ox 02/20/21 11:27 36.7 C 58 L 18 168/74 H 95 02/20/21 07:43 36.6 C 61 20 159/70 H 95 02/20/21 07:24 54 L 02/20/21 04:00 36.7 C 61 18 151/74 H 95 all noted and reviewed including below (1) Fall Encounter type: initial encounter Qualified Code(s): W19.XXXA - Unspecified fall, initial encounter
[2021-02-20] MEDS: MELATONIN 3 MG TAB PO PRN (19:51)
[2021-02-20] MEDS: SERTRALINE HCL 100 MG TABLET PO SCH (19:52)
[2021-02-20] MEDS: SENNA 8.6 MG TAB PO SCH (19:55)
[2021-02-21] MEDS: LEVOTHYROXINE SODIUM 125 MCG TABLET PO SCH (05:53)
[2021-02-21 09:20] LABS: Creatinine Clr Calc Pharmacy 51.8 ml/min; Est GFR (African American) 82.8 ml/min; Est GFR (Non-African American) 71.4 ml/min
[2021-02-21 09:24] LABS: Troponin I < 0.015 ng/ml (0-0.045)
[2021-02-21 09:44] LABS: Basophils # (auto) 0.04 K/uL (0-0.2); Basophils % (auto) 0.6 %; Eosinophils # (auto) 0.14 K/uL (0-0.5); Hemoglobin 7.7 g/dL (12.0-16.0); Immature Granulocytes # (auto) 0.03 K/uL (0.00-0.02); Immature Granulocytes % (auto) 0.4 %; Lymphocytes % (auto) 14.4 %; Mean Corpuscular Hemoglobin 27.7 pg (25-34); Mean Corpuscular Hgb Conc 30.8 g/dL (32-36); Mean Corpuscular Volume 89.9 fL (80-100); Mean Platelet Volume 8.7 fL (7.4-10.4); Monocytes # (auto) 0.86 K/uL (0.11-0.59); Monocytes % (auto) 12.4 %; Neutrophils # (auto) 4.89 K/uL (1.4-6.5); Neutrophils % (auto) 70.2 %; Platelet Count 655 K/uL (130-400); RDW Coefficient of Variation 16.3 % (11.5-14.5); RDW Standard Deviation 53.2 fL (36.4-46.3); Red Blood Count 2.78 M/uL (4.2-5.4); White Blood Count 6.96 K/uL (4.8-10.8)
[2021-02-21 10:09] LABS: RBC Morphology Unremarkable
[2021-02-21 10:18] LABS: BUN Creatinine Ratio 31.9 (10-20); Calcium 9.1 mg/dl (8.5-10.1); Creatinine Clr Calc Pharmacy 47.5 ml/min; Est GFR (African American) 74.5 ml/min; Est GFR (Non-African American) 64.3 ml/min; Potassium 2.8 mmol/L (3.5-5.1)
[2021-02-21] MEDS: DOCUSATE SODIUM 100 MG CAP PO SCH ×2 (11:50→20:31)
[2021-02-21] MEDS: amLODIPine BESYLATE 5 MG TAB PO SCH (11:50)
[2021-02-21] MEDS: HEPARIN SOD 5,000 UNIT/0.5 ML VIAL SQ SCH ×2 (11:50→20:31)
[2021-02-21] MEDS: PANTOprazole 40 MG TAB PO SCH ×2 (11:51→20:22)
[2021-02-21] MEDS: MAGNESIUM OXIDE 400 MG TAB PO SCH ×2 (11:51→20:22)
[2021-02-21] MEDS: ADVANCED PROBIOTIC 1250 MG CAPSULE PO SCH (11:51)
[2021-02-21] MEDS: LOSARTAN POTASSIUM 25 MG TAB PO SCH (11:51)
[2021-02-21] MEDS: ATENOLOL 50 MG TABLET PO SCH (11:51)
[2021-02-21] MEDS: DAPTOmycin 350 MG in SYRINGE 0 ML IV SCH (14:36)
--- NOTE | 2021-02-21 16:01 | Electrocardiogram Report ---
Test Reason : Blood Pressure : / mmHG Vent. Rate : 062 BPM Atrial Rate : 062 BPM P-R Int : 144 ms QRS Dur : 080 ms QT Int : 420 ms P-R-T Axes : -11 012 003 degrees QTc Int : 426 ms Normal sinus rhythm Inferior infarct , age undetermined Poor R wave progression, consider anterior TX vs. lead placement vs. LVH Abnormal ECG When compared with ECG of 13-FEB-2021 10:27, Inferior infarct is now Present T wave inversion now evident in Inferior leads Confirmed by Cory Cobian ([id number]) on 02/21/2021 4:01:22 PM Referred By: REFERRED SELF Confirmed By:Cory Cobian
[2021-02-21] MEDS ORDERED: SODIUM CHLORIDE 0.9% 250 ML IV PRN (16:07)
[2021-02-21] MEDS ORDERED: POTASSIUM CHLORIDE CRTAB 20 MEQ TABCR PO STA (16:10)
--- NOTE | 2021-02-21 16:16 | Hospitalist Progress Note ---
Date of Service February 21, 2021 Assessment & Plan (1) Sepsis: (2) Infection: (3) Fall: (4) Acute kidney injury superimposed on chronic kidney disease: (5) PSVT (paroxysmal supraventricular tachycardia): (6) HTN (hypertension): (7) Hypothyroidism: (8) HLD (hyperlipidemia): (9) MERY (obstructive sleep apnea): Plan: #. Sepsis 2/2 left lower extremity infection in post-operative setting #. IE tolerating antibiotics well continue Daptomycin IV (to complete 6 weeks total) follow Ortho recs -- remains stable overall #. Fall at home In setting of LLE infection Fall precautions, PT/OT Patient lives at home with elderly -- awaiting acceptance to SNF/Rehab #. Acute kidney injury superimposed on CKD III Baseline creatinine around 1 Nephrology on board: Recommends no IV fluid and no Lasix, later stabilized on her own. No further work-up is needed for etiology of acute renal failure given it occurred on the background of bacteremia/hypertension/antibiotic exposure. Daily labs. Avoid MARICRUZ inhibitor/ARB/NSAIDs/contrast agents. -- crea now back to baseline 1.05 #. Acute blood loss anemia/status post fall and postoperative hemoglobin 7.6 on 02/05, received 1 unit of PRBCs -- Hg 7.7 Iron 20- will supplement 1 unit pRBC given -- monitor Chest pain, Right sided troponin x 2 negative reproducible with palpation EKG mild t wave inversion inferior lead check echo #. Hypertension Continue atenolol -- resume Losartan #. Hypokalemia, hypomagnesemia Replete and monitor #. Paroxysmal SVT Monitor on tele, continue atenolol #. Hypothyroidism Continue levothyroxine #. Depression Continue sertraline DVT Ppx: SQ heparin Code status: FULL PCP: Dr. Roe Dispo: awaiting acceptance to SNF/Rehab Admission and Anticipated Discharge Date Admission Date: February 04, 2021 Subjective ff up for l knee infection, etc seen resting in bed, comfortable pleasantly confused reports r sided chest discomfort mild- reproducible with palpation, movement no dyspnea, palpitations, dizziness, nausea has mild L knee discomfort not taking meds, declining food per RN no other symptoms Review of Systems Review of Systems: all noted and negative except for above Physical Exam Physical Exam: General- oriented x o, not in distress, speaks in sentences with no effort or accessory muscle use Eyes- anicteric Neck- no JVD Lungs- clear breath sounds bilaterally, no rales/wheezes Heart- normal rate, regular rhythm; no murmurs (+) very mild tenderness on palpation of R chest wall Abdomen- normal bowel sounds, nondistended, soft, nontender Extremities- RLE no pretibial edema, no calf tenderness LLE (+) mild-moderate edema of left knee, wound healing well Neuro- alert, oriented x 0; no new gross focal neurologic deficits Skin- warm & dry Results & Data Results & Data ([facility]) Vital Signs (Past 12 Hours) Vital Signs Temp Pulse Pulse Resp BP Pulse Ox 02/21/21 15:51 37.0 C 66 18 151/70 H 93 02/21/21 10:55 36.8 C 67 20 137/70 92 02/21/21 08:14 57 L 02/21/21 07:00 36.8 C 66 18 144/72 H 95 02/21/21 05:49 60 16 153/66 H 94 all noted and reviewed including below (1) Fall Encounter type: initial encounter Qualified Code(s): W19.XXXA - Unspecified fall, initial encounter
[2021-02-21] MEDS: POTASSIUM CHLORIDE / WTR 10 MEQ/100 ML PLCT IV SCH ×4 (17:48→21:26)
[2021-02-21] MEDS: MELATONIN 3 MG TAB PO PRN (20:21)
[2021-02-21] MEDS: traMADol HCL 50 MG TABLET PO PRN (20:21)
[2021-02-21] MEDS: SERTRALINE HCL 100 MG TABLET PO SCH (20:23)
[2021-02-21] MEDS: SENNA 8.6 MG TAB PO SCH (20:31)
[2021-02-21 20:43] LABS: Basophils # (auto) 0.01 K/uL (0-0.2); Basophils % (auto) 0.1 %; Eosinophils # (auto) 0.12 K/uL (0-0.5); Eosinophils % (auto) 1.5 %; Hematocrit (blood only) 26.4 % (37-47); Hemoglobin 8.2 g/dL (12.0-16.0); Immature Granulocytes # (auto) 0.02 K/uL (0.00-0.02); Immature Granulocytes % (auto) 0.3 %; Lymphocytes # (auto) 1.19 K/uL (1.2-3.4); Lymphocytes % (auto) 15.3 %; Mean Corpuscular Hemoglobin 27.8 pg (25-34); Mean Corpuscular Hgb Conc 31.1 g/dL (32-36); Mean Corpuscular Volume 89.5 fL (80-100); Mean Platelet Volume 8.3 fL (7.4-10.4); Monocytes # (auto) 0.97 K/uL (0.11-0.59); Monocytes % (auto) 12.4 %; Neutrophils # (auto) 5.49 K/uL (1.4-6.5); Neutrophils % (auto) 70.4 %; Platelet Count 570 K/uL (130-400); RDW Coefficient of Variation 16.5 % (11.5-14.5); Red Blood Count 2.95 M/uL (4.2-5.4)
[2021-02-21 21:05] LABS: BUN Creatinine Ratio 34.1 (10-20); Blood Urea Nitrogen 26 mg/dl (7-18); Calcium 8.9 mg/dl (8.5-10.1); Carbon Dioxide 21 mmol/L (21-32); Chloride 106 mmol/L (98-107); Creatinine Clr Calc Pharmacy 51.8 ml/min; Est GFR (African American) 82.8 ml/min; Est GFR (Non-African American) 71.4 ml/min; Glucose 76 mg/dl (70-99); Magnesium 1.6 mg/dl (1.8-2.4); Potassium 3.2 mmol/L (3.5-5.1); Sodium 140 mmol/L (136-145)
[2021-02-21 21:10] LABS: Troponin I < 0.015 ng/ml (0-0.045)
[2021-02-21] MEDS: LIDOCAINE 5% 1 PATCH TD SCH (21:12)
[2021-02-22] MEDS: traMADol HCL 50 MG TABLET PO PRN (02:24)
[2021-02-22] MEDS: LEVOTHYROXINE SODIUM 125 MCG TABLET PO SCH (05:52)
[2021-02-22] MEDS: HEPARIN SOD 5,000 UNIT/0.5 ML VIAL SQ SCH ×2 (08:14→21:55)
[2021-02-22] MEDS: ADVANCED PROBIOTIC 1250 MG CAPSULE PO SCH (08:14)
[2021-02-22] MEDS: amLODIPine BESYLATE 5 MG TAB PO SCH (08:14)
[2021-02-22] MEDS: LOSARTAN POTASSIUM 25 MG TAB PO SCH (08:14)
[2021-02-22] MEDS: DOCUSATE SODIUM 100 MG CAP PO SCH ×2 (08:14→21:54)
[2021-02-22] MEDS: ATENOLOL 50 MG TABLET PO SCH (08:14)
[2021-02-22] MEDS: PANTOprazole 40 MG TAB PO SCH ×2 (08:14→21:55)
[2021-02-22] MEDS: MAGNESIUM OXIDE 400 MG TAB PO SCH ×2 (08:14→21:55)
[2021-02-22 09:16] LABS: Basophils # (auto) 0.02 K/uL (0-0.2); Basophils % (auto) 0.3 %; Eosinophils # (auto) 0.16 K/uL (0-0.5); Eosinophils % (auto) 2.2 %; Hematocrit (blood only) 29.4 % (37-47); Hemoglobin 9.4 g/dL (12.0-16.0); Immature Granulocytes # (auto) 0.03 K/uL (0.00-0.02); Immature Granulocytes % (auto) 0.4 %; Lymphocytes # (auto) 1.08 K/uL (1.2-3.4); Lymphocytes % (auto) 14.7 %; Mean Corpuscular Hemoglobin 28.5 pg (25-34); Mean Corpuscular Volume 89.1 fL (80-100); Mean Platelet Volume 8.5 fL (7.4-10.4); Monocytes % (auto) 10.9 %; Neutrophils # (auto) 5.24 K/uL (1.4-6.5); Neutrophils % (auto) 71.5 %; Platelet Count 518 K/uL (130-400); White Blood Count 7.33 K/uL (4.8-10.8)
[2021-02-22 09:39] LABS: BUN Creatinine Ratio 31.1 (10-20); Calcium 8.7 mg/dl (8.5-10.1); Creatinine Clr Calc Pharmacy 51.8 ml/min; Est GFR (African American) 82.8 ml/min; Est GFR (Non-African American) 71.4 ml/min; Potassium 3.1 mmol/L (3.5-5.1)
[2021-02-22] MEDS ORDERED: IRON SUCROSE 150 MG in SODIUM CHLORIDE 0.9% 250 ML IV ONE (10:00)
[2021-02-22] MEDS: DAPTOmycin 350 MG in SYRINGE 0 ML IV SCH (12:56)
--- NOTE | 2021-02-22 16:51 | Hospitalist Progress Note ---
Date of Service February 22, 2021 Assessment & Plan (1) Sepsis: (2) Infection: (3) Fall: (4) Acute kidney injury superimposed on chronic kidney disease: (5) PSVT (paroxysmal supraventricular tachycardia): (6) HTN (hypertension): (7) Hypothyroidism: (8) HLD (hyperlipidemia): (9) MERY (obstructive sleep apnea): Plan: #. Sepsis 2/2 left lower extremity infection in post-operative setting #. IE tolerating antibiotics well continue Daptomycin IV (to complete 6 weeks total) follow Ortho recs -- remains stable overall check repeat echo: possible small mobile echodensity adherent to the posterior mitral valve annulus and area of mitral annular calcification --Will discuss again with ID regarding possible infective endocarditis given repeat echo findings #. Fall at home In setting of LLE infection Fall precautions, PT/OT Patient lives at home with elderly -- awaiting acceptance to SNF/Rehab #. Acute kidney injury superimposed on CKD III Baseline creatinine around 1 Nephrology on board: Recommends no IV fluid and no Lasix, later stabilized on her own. No further work-up is needed for etiology of acute renal failure given it occurred on the background of bacteremia/hypertension/antibiotic exposure. Daily labs. Avoid MARICRUZ inhibitor/ARB/NSAIDs/contrast agents. -- crea now back to baseline 1.05 #. 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 Hypertension Continue atenolol -- resume Losartan #. Hypokalemia, hypomagnesemia Replete and monitor #. Paroxysmal SVT Monitor on tele, continue atenolol #. Hypothyroidism Continue levothyroxine #. Depression Continue sertraline DVT Ppx: SQ heparin Code status: FULL PCP: Dr. Roe Dispo: awaiting acceptance to SNF/Rehab Admission and Anticipated Discharge Date Admission Date: February 04, 2021 Subjective ff up for left knee infection, etc seen resting in bed, comfortable in good spirits states she feels fine overall no chest pain, dyspnea, palpitations, dizziness no abdominal pain, nausea taking meds today no other issues Review of Systems Review of Systems: all noted and negative except for above Physical Exam Physical Exam: General- oriented x 0, not in distress, speaks in sentences with no effort or accessory muscle use Eyes- anicteric Neck- no JVD Lungs- clear breath sounds bilaterally, no rales/wheezes Heart- normal rate, regular rhythm; no murmurs Abdomen- normal bowel sounds, nondistended, soft, nontender Extremities-RLE no pretibial edema, no calf tenderness LLE mild edema, immobilizer in place Neuro- alert, oriented x 0; no new gross focal neurologic deficits Skin- warm & dry Results & Data Results & Data ([facility]) Vital Signs (Past 12 Hours) Vital Signs Temp Pulse Pulse Resp BP Pulse Ox 02/22/21 16:07 71 02/22/21 11:36 37.3 C 67 18 161/77 H 93 02/22/21 10:16 84 (1) Fall Encounter type: initial encounter Qualified Code(s): W19.XXXA - Unspecified fall, initial encounter
[2021-02-22] MEDS: FERROUS SULFATE 325 MG TAB PO SCH (17:22)
[2021-02-22] MEDS: LIDOCAINE 5% 1 PATCH TD SCH (17:22)
[2021-02-22] MEDS: POTASSIUM CHLORIDE CRTAB 20 MEQ TABCR PO SCH (17:22)
[2021-02-22] MEDS: SERTRALINE HCL 100 MG TABLET PO SCH (21:55)
[2021-02-22] MEDS: SENNA 8.6 MG TAB PO SCH (21:55)
[2021-02-23] MEDS: traMADol HCL 50 MG TABLET PO PRN ×2 (01:57→20:11)
[2021-02-23] MEDS: LEVOTHYROXINE SODIUM 125 MCG TABLET PO SCH (05:51)
[2021-02-23 07:11] LABS: Basophils # (auto) 0.01 K/uL (0-0.2); Basophils % (auto) 0.1 %; Eosinophils # (auto) 0.16 K/uL (0-0.5); Eosinophils % (auto) 2.3 %; Hematocrit (blood only) 30.1 % (37-47); Hemoglobin 9.5 g/dL (12.0-16.0); Immature Granulocytes # (auto) 0.02 K/uL (0.00-0.02); Immature Granulocytes % (auto) 0.3 %; Lymphocytes # (auto) 1.32 K/uL (1.2-3.4); Lymphocytes % (auto) 19.2 %; Mean Corpuscular Hgb Conc 31.6 g/dL (32-36); Mean Corpuscular Volume 88.8 fL (80-100); Mean Platelet Volume 8.8 fL (7.4-10.4); Monocytes # (auto) 0.77 K/uL (0.11-0.59); Monocytes % (auto) 11.2 %; Neutrophils % (auto) 66.9 %; Platelet Count 520 K/uL (130-400); RDW Coefficient of Variation 16.4 % (11.5-14.5); RDW Standard Deviation 52.6 fL (36.4-46.3); Red Blood Count 3.39 M/uL (4.2-5.4); White Blood Count 6.88 K/uL (4.8-10.8)
[2021-02-23 07:38] LABS: BUN Creatinine Ratio 27.8 (10-20); Calcium 8.9 mg/dl (8.5-10.1); Creatinine Clr Calc Pharmacy 55.4 ml/min; Est GFR (African American) 89.8 ml/min; Est GFR (Non-African American) 77.4 ml/min
[2021-02-23] MEDS: PANTOprazole 40 MG TAB PO SCH ×2 (08:26→20:13)
[2021-02-23] MEDS: LOSARTAN POTASSIUM 25 MG TAB PO SCH ×3 (08:27→14:52)
[2021-02-23] MEDS: MAGNESIUM OXIDE 400 MG TAB PO SCH ×2 (08:27→20:11)
[2021-02-23] MEDS: ADVANCED PROBIOTIC 1250 MG CAPSULE PO SCH ×2 (08:28→08:45)
[2021-02-23] MEDS: ATENOLOL 50 MG TABLET PO SCH ×3 (08:28→14:49)
[2021-02-23] MEDS: POTASSIUM CHLORIDE CRTAB 20 MEQ TABCR PO SCH ×3 (08:28→14:49)
[2021-02-23] MEDS: amLODIPine BESYLATE 5 MG TAB PO SCH ×3 (08:28→14:45)
[2021-02-23] MEDS: DOCUSATE SODIUM 100 MG CAP PO SCH ×2 (08:29→20:13)
[2021-02-23] MEDS: FERROUS SULFATE 325 MG TAB PO SCH ×2 (08:29→17:03)
[2021-02-23] MEDS: HEPARIN SOD 5,000 UNIT/0.5 ML VIAL SQ SCH ×2 (08:29→20:12)
[2021-02-23] MEDS: DAPTOmycin 350 MG in SYRINGE 0 ML IV SCH (12:58)
--- NOTE | 2021-02-23 15:21 | Hospitalist Progress Note ---
Date of Service February 23, 2021 Assessment & Plan (1) Sepsis: (2) Bacteremia: Plan: (1) Sepsis: (2) Infection: (3) Fall: (4) Acute kidney injury superimposed on chronic kidney disease: (5) PSVT (paroxysmal supraventricular tachycardia): (6) HTN (hypertension): (7) Hypothyroidism: (8) HLD (hyperlipidemia): (9) MERY (obstructive sleep apnea): Plan: #. Sepsis 2/2 left lower extremity infection in post-operative setting #. IE tolerating antibiotics well continue Daptomycin IV (to complete 6 weeks total) follow Ortho recs -- remains stable overall check repeat echo: compared to prior study 02/12, no significant change, grossly normal valvular structure and function, LVmotion is normal --Will discuss again with ID regarding possible infective endocarditis given repeat echo findings #. Fall at home In setting of LLE infection Fall precautions, PT/OT Patient lives at home with elderly -- awaiting acceptance to SNF/Rehab #. Acute kidney injury superimposed on CKD III Baseline creatinine around 1 Nephrology on board: Recommends no IV fluid and no Lasix, later stabilized on her own. No further work-up is needed for etiology of acute renal failure given it occurred on the background of bacteremia/hypertension/antibiotic exposure. Daily labs. Avoid MARICRUZ inhibitor/ARB/NSAIDs/contrast agents. -- crea now back to baseline 1.05 #. Acute blood loss anemia/status post fall and postoperative hemoglobin 7.6 on 02/05, received 1 unit of PRBCs -- Hg 7.7 Iron 20- will supplement 1 unit pRBC given -- Hg improved to 9.4 Venofer 150mg IV one dose given FeSO4 given Chest pain, Right sided troponin x 2 negative reproducible with palpation EKG mild t wave inversion inferior lead check repeat echo: possible small mobile echodensity adherent to the posterior mitral valve annulus and area of mitral annular calcification Poor appetite We will consult occupational therapy department chair #. Hypertension Continue atenolol -- resume Losartan #. Hypokalemia, hypomagnesemia Replete and monitor #. Paroxysmal SVT Monitor on tele, continue atenolol #. Hypothyroidism Continue levothyroxine #. Depression Continue sertraline DVT Ppx: SQ heparin Code status: FULL PCP: Dr. Roe Dispo: awaiting acceptance to SNF/Rehab Admission and Anticipated Discharge Date Admission Date: February 04, 2021 Subjective ff up for bacteremia, etc seen resting in bed, comfortable sitting up in good spirits pleasantly confused states she feels fine overall denies chest pain, dyspnea, palpitations, dizziness no leg pain discussed importance of taking medications daily and eating more patient said she will take her meds daily and try to eat more no other symptoms Review of Systems Review of Systems: all noted and negative except for above Physical Exam Physical Exam: General- oriented x 1, not in distress, speaks in sentences with no effort or accessory muscle use Eyes- anicteric Neck- no JVD Lungs- clear BS bL Heart- normal rate, regular rhythm; no murmurs Abdomen- normal bowel sounds, nondistended, soft, nontender Extremities- no pretibial edema, no calf tenderness left lower leg mild edema wound healing well Neuro- alert, oriented x 1; no new gross focal neurologic deficits Skin- warm & dry Results & Data Results & Data ([facility]) Vital Signs (Past 12 Hours) Vital Signs Temp Pulse Pulse Resp BP Pulse Ox 02/23/21 15:00 36.6 C 100 H 16 154/84 H 95 02/23/21 11:33 36.9 C 76 16 162/80 H 96 02/23/21 07:34 36.7 C 101 H 93 H 16 155/77 H 95 02/23/21 04:00 36.9 C 81 20 156/68 H 94 all noted and reviewed including below (1) Sepsis Acute renal failure type: unspecified Sepsis acute organ dysfunction status: with acute organ dysfunction Sepsis type: sepsis due to unspecified organism Severe sepsis acute organ dysfunction type: acute renal failure Severe sepsis shock status: without septic shock Qualified Code(s): A41.9 - Sepsis, unspecified organism; R65.20 - Severe sepsis without septic shock; N17.9 - Acute kidney failure, unspecified
[2021-02-23] MEDS: LIDOCAINE 5% 1 PATCH TD SCH (17:03)
[2021-02-23] MEDS: MELATONIN 3 MG TAB PO PRN (20:11)
[2021-02-23] MEDS: SENNA 8.6 MG TAB PO SCH (20:12)
[2021-02-23] MEDS: SERTRALINE HCL 100 MG TABLET PO SCH (20:13)
[2021-02-24] MEDS: LEVOTHYROXINE SODIUM 125 MCG TABLET PO SCH (05:55)
[2021-02-24 09:00] LABS: Basophils # (auto) 0.01 K/uL (0-0.2); Basophils % (auto) 0.1 %; Eosinophils # (auto) 0.25 K/uL (0-0.5); Eosinophils % (auto) 3.4 %; Hematocrit (blood only) 30.3 % (37-47); Hemoglobin 9.5 g/dL (12.0-16.0); Immature Granulocytes # (auto) 0.02 K/uL (0.00-0.02); Immature Granulocytes % (auto) 0.3 %; Lymphocytes # (auto) 1.08 K/uL (1.2-3.4); Lymphocytes % (auto) 14.5 %; Mean Corpuscular Hemoglobin 28.2 pg (25-34); Mean Corpuscular Hgb Conc 31.4 g/dL (32-36); Mean Corpuscular Volume 89.9 fL (80-100); Mean Platelet Volume 8.9 fL (7.4-10.4); Monocytes # (auto) 0.82 K/uL (0.11-0.59); Neutrophils # (auto) 5.27 K/uL (1.4-6.5); Neutrophils % (auto) 70.7 %; Platelet Count 473 K/uL (130-400); RDW Coefficient of Variation 16.6 % (11.5-14.5); RDW Standard Deviation 53.8 fL (36.4-46.3); Red Blood Count 3.37 M/uL (4.2-5.4); White Blood Count 7.45 K/uL (4.8-10.8)
[2021-02-24 09:32] LABS: BUN Creatinine Ratio 30.3 (10-20); Calcium 8.9 mg/dl (8.5-10.1); Creatinine Clr Calc Pharmacy 61.4 ml/min; Est GFR (African American) 95.2 ml/min; Est GFR (Non-African American) 82.1 ml/min; Potassium 3.3 mmol/L (3.5-5.1)
[2021-02-24] MEDS: DAPTOmycin 400 MG in SYRINGE 0 ML IV SCH (12:47)
[2021-02-24] MEDS: FERROUS SULFATE 325 MG TAB PO SCH ×2 (12:47→18:30)
[2021-02-24] MEDS: amLODIPine BESYLATE 5 MG TAB PO SCH (16:15)
[2021-02-24] MEDS: LOSARTAN POTASSIUM 25 MG TAB PO SCH (16:16)
[2021-02-24] MEDS: MAGNESIUM OXIDE 400 MG TAB PO SCH ×2 (16:16→21:57)
[2021-02-24] MEDS: DOCUSATE SODIUM 100 MG CAP PO SCH ×2 (16:16→22:00)
[2021-02-24] MEDS: ATENOLOL 50 MG TABLET PO SCH (16:16)
[2021-02-24] MEDS: ADVANCED PROBIOTIC 1250 MG CAPSULE PO SCH (16:16)
[2021-02-24] MEDS: HEPARIN SOD 5,000 UNIT/0.5 ML VIAL SQ SCH ×2 (16:16→21:56)
[2021-02-24] MEDS: PANTOprazole 40 MG TAB PO SCH ×2 (16:17→21:57)
[2021-02-24] MEDS: POTASSIUM CHLORIDE CRTAB 20 MEQ TABCR PO SCH (16:17)
--- NOTE | 2021-02-24 17:05 | Hospitalist Progress Note ---
Date of Service February 24, 2021 Assessment & Plan (1) Sepsis: (2) Bacteremia: Plan: (1) Sepsis: (2) Infection: (3) Fall: (4) Acute kidney injury superimposed on chronic kidney disease: (5) PSVT (paroxysmal supraventricular tachycardia): (6) HTN (hypertension): (7) Hypothyroidism: (8) HLD (hyperlipidemia): (9) MERY (obstructive sleep apnea): Plan: #. Sepsis 2/2 left lower extremity infection in post-operative setting #. IE tolerating antibiotics well continue Daptomycin IV (to complete 6 weeks total) follow Ortho recs -- remains stable overall repeat echo: compared to prior study 02/12, no significant change, grossly normal valvular structure and function, LVmotion is normal --Discussed echo with Dr. Berger, no vegetation noted on repeat echocardiogram But recommend to continue with IV daptomycin and p.o. doxycycline indefinitely #. Fall at home In setting of LLE infection Fall precautions, PT/OT Patient lives at home with elderly -- awaiting acceptance to SNF/Rehab #. Acute kidney injury superimposed on CKD III Baseline creatinine around 1 Nephrology on board: Recommends no IV fluid and no Lasix, later stabilized on her own. No further work-up is needed for etiology of acute renal failure given it occurred on the background of bacteremia/hypertension/antibiotic exposure. Daily labs. Avoid MARICRUZ inhibitor/ARB/NSAIDs/contrast agents. -- crea now back to baseline 1.05 #. Acute blood loss anemia/status post fall and postoperative hemoglobin 7.6 on 02/05, received 1 unit of PRBCs -- Hg 7.7 Iron 20- will supplement 1 unit pRBC given -- Hg improved to 9.4 Venofer 150mg IV one dose given FeSO4 given Chest pain, Right sided troponin x 2 negative reproducible with palpation EKG mild t wave inversion inferior lead check repeat echo: possible small mobile echodensity adherent to the posterior mitral valve annulus and area of mitral annular calcification Poor appetite Discussed with metalworking instructor #. Hypertension Continue atenolol And losartan #. Hypokalemia, hypomagnesemia Replete and monitor #. Paroxysmal SVT Monitor on tele, continue atenolol #. Hypothyroidism Continue levothyroxine #. Depression Continue sertraline DVT Ppx: SQ heparin Code status: FULL PCP: Dr. Sulman Dispo: awaiting acceptance to SNF/Rehab Admission and Anticipated Discharge Date Admission Date: February 04, 2021 Subjective ff up for left knee infection, etc seen resting in bed, comfortable pleasantly confused states she feels fine overall denies chest pain no cough, dyspnea, palpitations, dizziness no other symptoms Review of Systems Review of Systems: all noted and negative except for above Physical Exam Physical Exam: General- oriented x 1, not in distress, speaks in sentences with no effort or accessory muscle use Eyes- anicteric Neck- no JVD Lungs- clear breath sounds bilaterally, no rales/wheezes Heart- normal rate, regular rhythm; no murmurs Abdomen- normal bowel sounds, nondistended, soft, nontender Extremities- R LE no pretibial edema, no calf tenderness LLE: mild edema, wound healing well Neuro- alert, oriented x 1 no new gross focal neurologic deficits Skin- warm & dry Results & Data Results & Data ([facility]) Vital Signs (Past 12 Hours) Vital Signs Temp Pulse Pulse Resp BP Pulse Ox 02/24/21 16:41 64 02/24/21 15:09 36.7 C 67 16 163/77 H 93 02/24/21 11:08 36.7 C 67 16 183/77 H 93 02/24/21 07:42 57 L all noted and reviewed including below (1) Sepsis Acute renal failure type: unspecified Sepsis acute organ dysfunction status: with acute organ dysfunction Sepsis type: sepsis due to unspecified organism Severe sepsis acute organ dysfunction type: acute renal failure Severe sepsis shock status: without septic shock Qualified Code(s): A41.9 - Sepsis, unspecified organism; R65.20 - Severe sepsis without septic shock; N17.9 - Acute kidney failure, unspecified
[2021-02-24] MEDS: LIDOCAINE 5% 1 PATCH TD SCH (18:30)
[2021-02-24] MEDS: SENNA 8.6 MG TAB PO SCH (21:58)
[2021-02-24] MEDS: SERTRALINE HCL 100 MG TABLET PO SCH (21:58)
[2021-02-25] MEDS: LEVOTHYROXINE SODIUM 125 MCG TABLET PO SCH ×2 (06:14→22:20)
[2021-02-25] MEDS: LOSARTAN POTASSIUM 25 MG TAB PO SCH (08:31)
[2021-02-25] MEDS: ATENOLOL 50 MG TABLET PO SCH (08:32)
[2021-02-25] MEDS: amLODIPine BESYLATE 5 MG TAB PO SCH (08:32)
[2021-02-25] MEDS: ADVANCED PROBIOTIC 1250 MG CAPSULE PO SCH (08:32)
[2021-02-25] MEDS: FERROUS SULFATE 325 MG TAB PO SCH ×2 (08:32→17:42)
[2021-02-25] MEDS: HEPARIN SOD 5,000 UNIT/0.5 ML VIAL SQ SCH ×3 (08:33→22:24)
[2021-02-25] MEDS: MAGNESIUM OXIDE 400 MG TAB PO SCH ×3 (08:33→22:24)
[2021-02-25] MEDS: PANTOprazole 40 MG TAB PO SCH ×3 (08:33→22:24)
[2021-02-25] MEDS: POTASSIUM CHLORIDE CRTAB 20 MEQ TABCR PO SCH (08:33)
[2021-02-25 08:35] LABS: Calcium 8.7 mg/dl (8.5-10.1); Creatinine Clr Calc Pharmacy 65.4 ml/min; Est GFR (African American) 97.2 ml/min; Est GFR (Non-African American) 83.8 ml/min
[2021-02-25] MEDS: DOCUSATE SODIUM 100 MG CAP PO SCH ×3 (08:37→22:24)
[2021-02-25] MEDS: DAPTOmycin 400 MG in SYRINGE 0 ML IV SCH (08:37)
[2021-02-25] MEDS: LIDOCAINE 5% 1 PATCH TD SCH (17:42)
--- NOTE | 2021-02-25 18:18 | Hospitalist Progress Note ---
Date of Service February 25, 2021 Assessment & Plan (1) Sepsis: (2) Bacteremia: Plan: (1) Sepsis: (2) Infection: (3) Fall: (4) Acute kidney injury superimposed on chronic kidney disease: (5) PSVT (paroxysmal supraventricular tachycardia): (6) HTN (hypertension): (7) Hypothyroidism: (8) HLD (hyperlipidemia): (9) MERY (obstructive sleep apnea): Plan: #. Sepsis 2/2 left lower extremity infection in post-operative setting #. IE tolerating antibiotics well continue Daptomycin IV (to complete 6 weeks total) Per ID: 6 weeks of total ATB therapy [started 02/04]. Check CK every week while on daptomycin. Followed by indefinite doxycycline 100 mg daily given her age and the retained hardware [patient had skin rash with cefazolin] based on rediscussion with ID on 02/14. 02/13 ID updated about the new echo findings of vegetation. follow Ortho recs -- remains stable overall repeat echo: compared to prior study 02/12, no significant change, grossly normal valvular structure and function, LVmotion is normal --Discussed echo with Dr. Berger, no vegetation noted on repeat echocardiogram But recommend to continue with IV daptomycin and p.o. doxycycline indefinitely #. Fall at home In setting of LLE infection Fall precautions, PT/OT Patient lives at home with elderly -- awaiting acceptance to SNF/Rehab #. Acute kidney injury superimposed on CKD III Baseline creatinine around 1 Nephrology on board: Recommends no IV fluid and no Lasix, later stabilized on her own. No further work-up is needed for etiology of acute renal failure given it occurred on the background of bacteremia/hypertension/antibiotic exposure. Daily labs. Avoid MARICRUZ inhibitor/ARB/NSAIDs/contrast agents. -- crea now back to baseline 1.05 #. Acute blood loss anemia/status post fall and postoperative hemoglobin 7.6 on 02/05, received 1 unit of PRBCs -- Hg 7.7 Iron 20- will supplement 1 unit pRBC given -- Hg improved to 9.4 Venofer 150mg IV one dose given FeSO4 given # Chest pain, Right sided troponin x 2 negative reproducible with palpation EKG mild t wave inversion inferior lead check repeat echo: possible small mobile echodensity adherent to the posterior mitral valve annulus and area of mitral annular calcification Poor appetite Discussed with business analytics intern #. Hypertension Continue atenolol And losartan #. Hypokalemia, hypomagnesemia Replete and monitor #. Paroxysmal SVT Monitor on tele, continue atenolol #. Hypothyroidism Continue levothyroxine #. Depression Continue sertraline DVT Ppx: SQ heparin Code status: FULL PCP: Dr. Roe Dispo: awaiting acceptance to SNF/Rehab Admission and Anticipated Discharge Date Admission Date: February 04, 2021 Subjective ff up for left knee infection, etc seen resting in bed, comfortable pleasantly confused states she feels fine overall no chest pain, dyspnea, palpitations, dizziness no leg pain taking medications today, eating more no other symptoms Review of Systems Review of Systems: all noted and negative except for above Physical Exam Physical Exam: General- oriented x 1, not in distress, speaks in sentences with no effort or accessory muscle use Eyes- anicteric Neck- no JVD Lungs- clear breath sounds, no crackles or wheezing to auscultation Heart- normal rate, regular rhythm; no murmurs Abdomen- normal bowel sounds, nondistended, soft, nontender Extremities- no pretibial edema, no calf tenderness Left lower extremity: Mild edema, improving; wound healing well-no bleeding or discharge Neuro- alert, oriented x 1; no new gross focal neurologic deficits Skin- warm & dry Results & Data Results & Data ([facility]) Vital Signs (Past 12 Hours) Vital Signs Temp Pulse Pulse Resp BP BP Pulse Ox 02/25/21 16:16 62 02/25/21 15:42 36.8 C 61 18 148/75 H 95 02/25/21 12:00 36.9 C 66 18 131/76 93 02/25/21 08:00 36.7 C 71 18 165/75 H 93 02/25/21 07:52 68 all noted and reviewed including below (1) Sepsis Acute renal failure type: unspecified Sepsis acute organ dysfunction status: with acute organ dysfunction Sepsis type: sepsis due to unspecified organism Severe sepsis acute organ dysfunction type: acute renal failure Severe sepsis shock status: without septic shock Qualified Code(s): A41.9 - Sepsis, unspecified organism; R65.20 - Severe sepsis without septic shock; N17.9 - Acute kidney failure, unspecified
[2021-02-25] MEDS: SERTRALINE HCL 100 MG TABLET PO SCH ×2 (21:38→22:24)
[2021-02-25] MEDS: SENNA 8.6 MG TAB PO SCH ×2 (21:38→22:24)
[2021-02-26] MEDS: LEVOTHYROXINE SODIUM 125 MCG TABLET PO SCH (05:58)
[2021-02-26 07:30] LABS: BUN Creatinine Ratio 27.9 (10-20); Calcium 8.8 mg/dl (8.5-10.1); Creatinine Clr Calc Pharmacy 55.4 ml/min; Est GFR (African American) 89.8 ml/min; Est GFR (Non-African American) 77.4 ml/min; Potassium 2.8 mmol/L (3.5-5.1)
[2021-02-26] MEDS: FERROUS SULFATE 325 MG TAB PO SCH ×2 (09:44→16:08)
[2021-02-26] MEDS: amLODIPine BESYLATE 5 MG TAB PO SCH (09:45)
[2021-02-26] MEDS: ADVANCED PROBIOTIC 1250 MG CAPSULE PO SCH (09:45)
[2021-02-26] MEDS: ATENOLOL 50 MG TABLET PO SCH (09:45)
[2021-02-26] MEDS: POTASSIUM CHLORIDE CRTAB 20 MEQ TABCR PO SCH (09:46)
[2021-02-26] MEDS: PANTOprazole 40 MG TAB PO SCH ×2 (09:46→22:06)
[2021-02-26] MEDS: MAGNESIUM OXIDE 400 MG TAB PO SCH ×2 (09:46→22:05)
[2021-02-26] MEDS: LOSARTAN POTASSIUM 25 MG TAB PO SCH (09:46)
[2021-02-26] MEDS: DAPTOmycin 400 MG in SYRINGE 0 ML IV SCH (11:36)
[2021-02-26] MEDS: DOCUSATE SODIUM 100 MG CAP PO SCH ×2 (11:36→22:05)
[2021-02-26] MEDS ORDERED: POTASSIUM CHLORIDE CRTAB 20 MEQ TABCR PO STA (12:08)
[2021-02-26] MEDS: HEPARIN SOD 5,000 UNIT/0.5 ML VIAL SQ SCH ×2 (12:20→22:11)
[2021-02-26] MEDS: POTASSIUM CHLORIDE / WTR 10 MEQ/100 ML PLCT IV SCH ×2 (13:37→14:41)
--- NOTE | 2021-02-26 14:53 | Hospitalist Progress Note ---
Date of Service February 26, 2021 Assessment & Plan (1) Sepsis: (2) Bacteremia: Plan: (1) Sepsis: (2) Infection: (3) Fall: (4) Acute kidney injury superimposed on chronic kidney disease: (5) PSVT (paroxysmal supraventricular tachycardia): (6) HTN (hypertension): (7) Hypothyroidism: (8) HLD (hyperlipidemia): (9) MERY (obstructive sleep apnea): Plan: #. Sepsis 2/2 left lower extremity infection in post-operative setting #. IE tolerating antibiotics well continue Daptomycin IV (to complete 6 weeks total) Per ID: 6 weeks of total ATB therapy [started 02/04]. Check CK every week while on daptomycin. Followed by indefinite doxycycline 100 mg daily given her age and the retained hardware [patient had skin rash with cefazolin] based on rediscussion with ID on 02/14. 02/13 ID updated about the new echo findings of vegetation. follow Ortho recs -- remains stable overall repeat echo: compared to prior study 02/12, no significant change, grossly normal valvular structure and function, LVmotion is normal --Discussed echo with Dr. Berger, no vegetation noted on repeat echocardiogram But recommend to continue with IV daptomycin and p.o. doxycycline indefinitely #. Fall at home In setting of LLE infection Fall precautions, PT/OT Patient lives at home with elderly -- awaiting acceptance to SNF/Rehab #. Acute kidney injury superimposed on CKD III Baseline creatinine around 1 Nephrology on board: Recommends no IV fluid and no Lasix, later stabilized on her own. No further work-up is needed for etiology of acute renal failure given it occurred on the background of bacteremia/hypertension/antibiotic exposure. Daily labs. Avoid MARICRUZ inhibitor/ARB/NSAIDs/contrast agents. -- crea now back to baseline 1.05 #. Acute blood loss anemia/status post fall and postoperative hemoglobin 7.6 on 02/05, received 1 unit of PRBCs -- Hg 7.7 Iron 20- will supplement 1 unit pRBC given -- Hg improved to 9.4 Venofer 150mg IV one dose given FeSO4 given # Chest pain, Right sided troponin x 2 negative reproducible with palpation EKG mild t wave inversion inferior lead check repeat echo: possible small mobile echodensity adherent to the posterior mitral valve annulus and area of mitral annular calcification Poor appetite Discussed with test and turn up technician #. Hypertension Continue atenolol And losartan #. Hypokalemia, hypomagnesemia Replete and monitor #. Paroxysmal SVT Monitor on tele, continue atenolol #. Hypothyroidism Continue levothyroxine #. Depression Continue sertraline DVT Ppx: SQ heparin Code status: FULL PCP: Dr. Roe Dispo: awaiting acceptance to SNF/Rehab Admission and Anticipated Discharge Date Admission Date: February 04, 2021 Subjective Pt was seen and examined for follow up of left knee infection Sitting in chair comfortable with no acute distress She said that she feels tired today She said that she does not have an appetite denies any chest pain, dyspnea, palpitations, dizziness Review of Systems Review of Systems: All systems reviewed & are unremarkable except as noted in Subjective Physical Exam Physical Exam: General- No acute distress Head- atraumatic Eyes- PERRL, EOMI, ENT- oropharynx clear Neck- supple, no JVD Lungs- clear to auscultation Heart- regular rhythm; no murmur Abdomen- normal bowel sounds, soft, nontender Extremities- no calf tenderness, wound healing well-no bleeding or discharge Neuro- alert, oriented, PERRL, EOMI; no facial palsy; no dysarthria Skin- warm & dry Results & Data Results & Data ([facility]) Vital Signs (Past 12 Hours) Vital Signs Temp Pulse Pulse Resp BP Pulse Ox 02/26/21 11:52 36.3 C L 69 18 122/77 96 02/26/21 11:13 63 02/26/21 08:00 37 C 85 18 105/62 95 02/26/21 04:00 66 20 162/73 H 93 (1) Sepsis Acute renal failure type: unspecified Sepsis acute organ dysfunction status: with acute organ dysfunction Sepsis type: sepsis due to unspecified organism Severe sepsis acute organ dysfunction type: acute renal failure Severe sepsis shock status: without septic shock Qualified Code(s): A41.9 - Sepsis, unspecified organism; R65.20 - Severe sepsis without septic shock; N17.9 - Acute kidney failure, unspecified
[2021-02-26] MEDS: LIDOCAINE 5% 1 PATCH TD SCH (16:08)
[2021-02-26] MEDS: SENNA 8.6 MG TAB PO SCH (22:06)
[2021-02-26] MEDS: SERTRALINE HCL 100 MG TABLET PO SCH (22:06)
[2021-02-27] MEDS: ACETAMINOPHEN 500 MG TAB PO PRN (03:16)
[2021-02-27] MEDS: traMADol HCL 50 MG TABLET PO PRN ×2 (05:02→09:11)
[2021-02-27] MEDS: LEVOTHYROXINE SODIUM 125 MCG TABLET PO SCH (06:17)
[2021-02-27] MEDS: PANTOprazole 40 MG TAB PO SCH ×2 (09:07→21:41)
[2021-02-27] MEDS: POTASSIUM CHLORIDE CRTAB 20 MEQ TABCR PO SCH (09:07)
[2021-02-27] MEDS: MAGNESIUM OXIDE 400 MG TAB PO SCH ×2 (09:07→21:41)
[2021-02-27] MEDS: LOSARTAN POTASSIUM 25 MG TAB PO SCH (09:07)
[2021-02-27] MEDS: ATENOLOL 50 MG TABLET PO SCH (09:07)
[2021-02-27] MEDS: amLODIPine BESYLATE 5 MG TAB PO SCH (09:07)
[2021-02-27] MEDS: FERROUS SULFATE 325 MG TAB PO SCH ×2 (09:08→16:41)
[2021-02-27] MEDS: ADVANCED PROBIOTIC 1250 MG CAPSULE PO SCH (09:08)
[2021-02-27] MEDS: HEPARIN SOD 5,000 UNIT/0.5 ML VIAL SQ SCH ×2 (09:09→21:48)
[2021-02-27] MEDS: DAPTOmycin 400 MG in SYRINGE 0 ML IV SCH (09:12)
[2021-02-27] MEDS: DOCUSATE SODIUM 100 MG CAP PO SCH ×2 (09:12→21:41)
[2021-02-27 09:27] LABS: BUN Creatinine Ratio 28.6 (10-20); Calcium 8.9 mg/dl (8.5-10.1); Creatinine Clr Calc Pharmacy 49.9 ml/min; Est GFR (Non-African American) 68.2 ml/min; Magnesium 1.5 mg/dl (1.8-2.4); Potassium 4.2 mmol/L (3.5-5.1)
--- NOTE | 2021-02-27 14:52 | Orthopedic Progress Note ---
Date of Service February 27, 2021 Assessment & Plan (1) Post-operative infection: Plan: POD 22 - s/p I&D left knee joint and left tibia postop infection New left knee x-rays ordered since last films done 3 weeks ago Duplex US LLE to rule out DVT continue NWB LLE continue antibiotics per infectious disease. PT/OT Allowed out of bed to chair with assistance Consider d/c tramdol due to mental status deterioration Will continue to follow as needed while inpatient. Okay for discharge from ortho standpoint when medically stable/bed available at facility Admission and Anticipated Discharge Date Admission Date: February 04, 2021 Subjective Patient had been doing much better mentally, per nursing up through the morning, but now is withdrawn and did not want to be changed after an episode of urinary incontinence. She did not want to work with physical therapy either, per their report. Regarding her left knee, she says it doesn't hurt. She has been on SQ heparin for DVT prophylaxis. Physical Exam Physical Exam: Affect is depressed, but responds appropriately. Refuses to move her knee actively. L knee: incision healing well. No redness or drainage. Lower leg edema worsened from last visit. Reports no calf tenderness, however. Passive knee ROM limited 35-90 degrees today. NVI. Results & Data ([facility]) Vital Signs (Past 12 Hours) Vital Signs Temp Pulse Pulse Resp BP BP Pulse Ox 02/27/21 11:40 36.7 C 68 16 138/78 96 02/27/21 07:49 36.9 C 74 16 145/84 H 95 02/27/21 06:25 68 02/27/21 04:00 37 C 65 20 145/73 H 95 (1) Post-operative infection Encounter type: initial encounter Postoperative infection type: unspecified type Qualified Code(s): T81.40XA - Infection following a procedure, unspecified, initial encounter
[2021-02-27] MEDS: LIDOCAINE 5% 1 PATCH TD SCH (16:41)
--- NOTE | 2021-02-27 18:35 | XRay Report ---
XR knee LT 1 or 2V routine CLINICAL HISTORY: s/p ORIF tibial plateau fracture COMPARISON STUDY: Left knee 01/27/2021. FINDINGS: Medial cortical plate transfixed with screws traversing the medial tibial plateau fracture. The hardware appears intact. The alignment appears anatomic. No significant knee effusion. Mild soft tissue swelling is noted anteriorly. IMPRESSION: 1. No acute fracture or dislocation within the left knee. 2. Fixated subacute medial tibial plateau fracture with unchanged alignment and intact hardware. 3. Mild soft tissue swelling. This has improved. ACT 112: Negative or not required by law. Electronically signed by: Kelvin Espinosa M.D. 02/27/2021 6:34 PM
--- NOTE | 2021-02-27 19:23 | Hospitalist Progress Note ---
Date of Service February 27, 2021 Assessment & Plan (1) Sepsis: Plan: Pt was seen and examined for follow up of left knee infection Sitting in chair comfortable with no acute distress She said that she does not have an appetite denies any chest pain, dyspnea, palpitations, dizziness (2) Bacteremia: Plan: (1) Sepsis: (2) Infection: (3) Fall: (4) Acute kidney injury superimposed on chronic kidney disease: (5) PSVT (paroxysmal supraventricular tachycardia): (6) HTN (hypertension): (7) Hypothyroidism: (8) HLD (hyperlipidemia): (9) MERY (obstructive sleep apnea): Plan: #. Sepsis 2/2 left lower extremity infection in post-operative setting #. IE POD 22 - s/p I&D left knee joint and left tibia postop infection tolerating antibiotics well continue Daptomycin IV (to complete 6 weeks total) Per ID: 6 weeks of total ATB therapy [started 02/04]. Check CK every week while on daptomycin. Followed by indefinite doxycycline 100 mg daily given her age and the retained hardware [patient had skin rash with cefazolin] based on rediscussion with ID on 02/14. 02/13 ID updated about the new echo findings of vegetation. Will place an U/S guided peripheral follow Ortho recs -- remains stable overall repeat echo: compared to prior study 02/12, no significant change, grossly normal valvular structure and function, LVmotion is normal --Discussed echo with Dr. Berger, no vegetation noted on repeat echocardiogram But recommend to continue with IV daptomycin and p.o. doxycycline indefinitely #. Fall at home In setting of LLE infection Fall precautions, PT/OT Patient lives at home with elderly continue NWB LLE continue antibiotics per infectious disease. -- awaiting acceptance to SNF/Rehab #. Acute kidney injury superimposed on CKD III Baseline creatinine around 1 Nephrology on board: Recommends no IV fluid and no Lasix, later stabilized on her own. No further work-up is needed for etiology of acute renal failure given it occurred on the background of bacteremia/hypertension/antibiotic exposure. Daily labs. Avoid MARICRUZ inhibitor/ARB/NSAIDs/contrast agents. -- crea now back to baseline 1.05 #. Acute blood loss anemia/status post fall and postoperative hemoglobin 7.6 on 02/05, received 1 unit of PRBCs 1 unit pRBC given during the hospital course -- Hg improved to 9.4 Venofer 150mg IV one dose given FeSO4 given # Chest pain, Right sided troponin x 2 negative reproducible with palpation EKG mild t wave inversion inferior lead check repeat echo: possible small mobile echodensity adherent to the posterior mitral valve annulus and area of mitral annular calcification Poor appetite Discussed with operational meteorologist #. Hypertension Continue atenolol And losartan #. Hypokalemia, hypomagnesemia Replete and monitor #. Paroxysmal SVT Monitor on tele, continue atenolol #. Hypothyroidism Continue levothyroxine #. Depression Continue sertraline DVT Ppx: SQ heparin Code status: FULL PCP: Dr. Roe Dispo: awaiting acceptance to SNF/Rehab Admission and Anticipated Discharge Date Admission Date: February 04, 2021 Physical Exam Physical Exam: General- No acute distress Head- atraumatic Eyes- PERRL, EOMI, ENT- oropharynx clear Neck- supple, no JVD Lungs- clear to auscultation Heart- regular rhythm; no murmur Abdomen- normal bowel sounds, soft, nontender Extremities- no calf tenderness, wound healing well-no bleeding or discharge Neuro- alert, oriented, PERRL, EOMI; no facial palsy; no dysarthria Skin- warm & dry Results & Data Results & Data ([facility]) Vital Signs (Past 12 Hours) Vital Signs Temp Pulse Pulse Resp BP Pulse Ox 02/27/21 14:20 65 02/27/21 11:40 36.7 C 68 16 138/78 96 02/27/21 07:49 36.9 C 74 16 145/84 H 95 (1) Sepsis Acute renal failure type: unspecified Sepsis acute organ dysfunction status: with acute organ dysfunction Sepsis type: sepsis due to unspecified organism Severe sepsis acute organ dysfunction type: acute renal failure Severe sepsis shock status: without septic shock Qualified Code(s): A41.9 - Sepsis, unspecified organism; R65.20 - Severe sepsis without septic shock; N17.9 - Acute kidney failure, unspecified
[2021-02-27] MEDS: SERTRALINE HCL 100 MG TABLET PO SCH (21:41)
[2021-02-27] MEDS: SENNA 8.6 MG TAB PO SCH (21:41)
[2021-02-28] MEDS: MAGNESIUM SULFATE / D5W 1 GM/100 ML BAG IV SCH ×2 (02:28→04:21)
[2021-02-28] MEDS: LEVOTHYROXINE SODIUM 125 MCG TABLET PO SCH (06:32)
[2021-02-28 08:01] LABS: BUN Creatinine Ratio 28.6 (10-20); Est GFR (African American) 92.9 ml/min; Est GFR (Non-African American) 80.1 ml/min; Magnesium 2.2 mg/dl (1.8-2.4); Potassium 3.8 mmol/L (3.5-5.1)
--- NOTE | 2021-02-28 08:27 | Ultrasound Report ---
LEFT LOWER EXTREMITY VENOUS DOPPLER HISTORY: L leg swelling COMPARISON STUDY: None. FINDINGS: There is normal compressibility, flow, and augmentation within the left lower extremity muriel p venous system. Complex popliteal cyst measuring 18 x 4 x 7 cm. IMPRESSION: No DVT within the left lower extremity. Large complex popliteal cyst. ACT 112: Negative or not required by law. Electronically signed by: Kelvin Espinosa M.D. 02/28/2021 8:25 AM
[2021-02-28] MEDS: PANTOprazole 40 MG TAB PO SCH (08:38)
[2021-02-28] MEDS: HEPARIN SOD 5,000 UNIT/0.5 ML VIAL SQ SCH (08:39)
[2021-02-28] MEDS: ATENOLOL 50 MG TABLET PO SCH (08:39)
[2021-02-28] MEDS: MAGNESIUM OXIDE 400 MG TAB PO SCH (08:39)
[2021-02-28] MEDS: ADVANCED PROBIOTIC 1250 MG CAPSULE PO SCH (08:39)
[2021-02-28] MEDS: LOSARTAN POTASSIUM 25 MG TAB PO SCH (08:40)
[2021-02-28] MEDS: FERROUS SULFATE 325 MG TAB PO SCH (08:40)
[2021-02-28] MEDS: POTASSIUM CHLORIDE CRTAB 20 MEQ TABCR PO SCH (08:40)
[2021-02-28] MEDS: amLODIPine BESYLATE 5 MG TAB PO SCH (08:40)
[2021-02-28] MEDS: DAPTOmycin 400 MG in SYRINGE 0 ML IV SCH (08:43)
[2021-02-28] MEDS: DOCUSATE SODIUM 100 MG CAP PO SCH (08:43)
--- NOTE | 2021-02-28 09:04 | Orthopedic Progress Note ---
Date of Service February 28, 2021 Assessment & Plan (1) Post-operative infection: Plan: POD 23 - s/p I&D left knee joint and left tibia postop infection Duplex Doppler done this morning ruled out DVT continue NWB LLE continue antibiotics per infectious disease. PT/OT Allowed out of bed to chair with assistance Consider d/c tramdol due to mental status deterioration Will continue to follow as needed while inpatient. Okay for discharge from ortho standpoint when medically stable/bed available at facility Admission and Anticipated Discharge Date Admission Date: February 04, 2021 Subjective Patient is very pleasant this morning upon evaluation. She easily followed commands and did range of motion activities that I requested. She states she is not in any pain but that her lower leg is more swollen than it had been. She states that she just got back from having an ultrasound of her left lower extremity. Review of Systems Review of Systems: All systems reviewed & are unremarkable except as noted in Subjective Physical Exam Physical Exam: Left lower extremity:Sutures have been removed from the left lower extremity and Steri-Strips are over the incision site. It appears to be healing very well. There is significant edema of the posterior calf area that is nontender to palpation.. There is no palpable fluctuance. Patient is able to actively flex her knee to 90 degrees but is approximately 25degrees short of terminal extension. Able to perform active dorsi and plantar flexion of her foot. Patient is unable to perform an active or active assisted straight leg raise in the left lower extremity.. Results & Data ([facility]) Vital Signs (Past 12 Hours) Vital Signs Temp Pulse Pulse Resp BP Pulse Ox 02/28/21 07:50 66 02/28/21 07:34 36.9 C 64 16 149/78 H 94 02/28/21 03:00 36.7 C 68 18 157/70 H 92 02/28/21 00:00 63 02/27/21 23:00 37 C 60 18 134/69 91 Diagnostic Findings Laboratory Results WBC 7.45 K/uL (4.8-10.8) 02/24/21 08:43 RBC 3.37 M/uL (4.2-5.4) L 02/24/21 08:43 Hgb 9.5 g/dL (12.0-16.0) L 02/24/21 08:43 Hct 30.3 % (37-47) L 02/24/21 08:43 MCV 89.9 fL (80-100) 02/24/21 08:43 MCH 28.2 pg (25-34) 02/24/21 08:43 MCHC 31.4 g/dL (32-36) L 02/24/21 08:43 RDW Std Deviation 53.8 fL (36.4-46.3) H 02/24/21 08:43 RDW Coeff of Brandan 16.6 % (11.5-14.5) H 02/24/21 08:43 Plt Count 473 K/uL (130-400) H 02/24/21 08:43 MPV 8.9 fL (7.4-10.4) 02/24/21 08:43 Immature Gran % (Auto) 0.3 % 02/24/21 08:43 Neut % (Auto) 70.7 % 02/24/21 08:43 Lymph % (Auto) 14.5 % 02/24/21 08:43 [place] % (Auto) 11.0 % 02/24/21 08:43 Eos % (Auto) 3.4 % 02/24/21 08:43 Baso % (Auto) 0.1 % 02/24/21 08:43 Neut # (Auto) 5.27 K/uL (1.4-6.5) 02/24/21 08:43 Lymph # (Auto) 1.08 K/uL (1.2-3.4) L 02/24/21 08:43 [place] # (Auto) 0.82 K/uL (0.11-0.59) H 02/24/21 08:43 Eos # (Auto) 0.25 K/uL (0-0.5) 02/24/21 08:43 Baso # (Auto) 0.01 K/uL (0-0.2) 02/24/21 08:43 Immature Gran # (Auto) 0.02 K/uL (0.00-0.02) 02/24/21 08:43 RBC Morphology Unremarkable 02/21/21 08:24 Hypochromasia Present 02/20/21 09:52 ESR 53 mm/hr (0-30) H 02/06/21 05:38 PT 11.0 Seconds (9.0-12.0) 02/04/21 13:03 INR 1.1 (0.9-1.1) 02/04/21 13:03 APTT 27.9 Seconds (21.0-31.0) 02/04/21 13:03 PTT Ratio 1.1 02/04/21 13:03 Sodium 139 mmol/L (136-145) 02/28/21 07:10 Potassium 3.8 mmol/L (3.5-5.1) 02/28/21 07:10 Chloride 109 mmol/L (98-107) H 02/28/21 07:10 Carbon Dioxide 24 mmol/L (21-32) 02/28/21 07:10 Anion Gap 6.0 (3-11) 02/28/21 07:10 BUN 20 mg/dl (7-18) H 02/28/21 07:10 Creatinine 0.70 mg/dl (0.6-1.2) 02/28/21 07:10 Est Cr Clr Drug Dosing 57.0 ml/min 02/28/21 07:10 Est GFR ( Amer) 92.9 ml/min 02/28/21 07:10 Est GFR (Non-Af Amer) 80.1 ml/min 02/28/21 07:10 BUN/Creatinine Ratio 28.6 (10-20) H 02/28/21 07:10 Glucose 92 mg/dl (70-99) 02/28/21 07:10 Lactate 1.4 mmol/L (0.4-2.0) 02/04/21 23:35 Calcium 9.0 mg/dl (8.5-10.1) 02/28/21 07:10 Phosphorus 3.7 mg/dl (2.5-4.9) 02/10/21 08:57 Magnesium 2.2 mg/dl (1.8-2.4) 02/28/21 07:10 Iron 20 mcg/dl (35-150) L 02/20/21 09:52 Total Bilirubin 0.6 mg/dl (0.2-1) 02/04/21 14:00 AST 14 U/L (15-37) L 02/04/21 14:00 ALT 13 U/L (12-78) 02/04/21 14:00 Alkaline Phosphatase 151 U/L (45-117) H 02/04/21 14:00 Total Creatine Kinase 139 U/L (26-192) 02/20/21 05:44 Troponin I < 0.015 ng/ml (0-0.045) 02/21/21 20:34 C-Reactive Protein 30.50 mg/dl (0-0.29) H 02/06/21 05:38 Total Protein 6.9 gm/dl (6.4-8.2) 02/04/21 14:00 Albumin 2.5 gm/dl (3.4-5.0) L 02/04/21 14:00 Globulin 4.4 gm/dl (2.5-4.0) H 02/04/21 14:00 Albumin/Globulin Ratio 0.6 (0.9-2) L 02/04/21 14:00 25-OH Vitamin D Total 28.3 ng/ml (30-100) L 02/07/21 07:34 Procalcitonin 3.20 ng/ml (0-0.5) H 02/04/21 14:00 TSH 1.800 uIu/ml (0.300-4.500) 02/10/21 08:57 Specimen Hemolysis [place] 02/09/21 06:10 Urine Color Dark Yellow 02/10/21 10:11 Urine Appearance Turbid (Clear) A 02/10/21 10:11 Urine pH 5.5 (4.5-7.5) 02/10/21 10:11 Ur Specific [place] 1.019 (1.000-1.030) 02/10/21 10:11 Urine Protein 1+ (Negative) H 02/10/21 10:11 Urine Glucose (UA) Negative (Negative) 02/10/21 10:11 Urine Ketones Trace (Negative) H 02/10/21 10:11 Urine Blood 1+ (Negative) H 02/10/21 10:11 Urine Nitrite Negative (Negative) 02/10/21 10:11 Urine Bilirubin Negative (Negative) 02/10/21 10:11 Urine Urobilinogen Negative (Negative) 02/10/21 10:11 Ur Leukocyte Esterase 2+ (Negative) H 02/10/21 10:11 Urine WBC (Auto) >30 /hpf (0-5) H 02/10/21 10:11 Urine RBC (Auto) 0-4 /hpf (0-4) 02/10/21 10:11 U Hyaline Cast (Auto) 0 /lpf (0-5) 02/10/21 10:11 U Epithel Cells (Auto) >30 /lpf (0-5) H 02/10/21 10:11 Urine Bacteria (Auto) Negative (Negative) 02/10/21 10:11 Urine Yeast Budding (None Prsent) A 02/10/21 10:11 Fluid Comment 02/04/21 17:26 Synovial Source KNEE 02/04/21 17:26 Synovial Color PALE YELLOW 02/04/21 17:26 Synovial Appearance CLOUDY 02/04/21 17:26 Synovial WBC [id number] /ul (0-200) H 02/04/21 17:26 Synovial RBC 65365 /uL 02/04/21 17:26 Synovial Polynuclear % 95.4 % 02/04/21 17:26 Synovial Mononuclear % 4.6 % 02/04/21 17:26 Synovial Crystals 02/04/21 17:26 [facility]19 [facility] 02/28/21 04:25 SARS-CoV-2 (PCR) NEGATIVE (Negative) 02/04/21 14:03 SARS-CoV-2, RNA, NAAT NEGATIVE (NEGATIVE) 02/28/21 04:25 Bld Cult Staph aureus PCR Positive (Negative) A 02/05/21 08:56 Blood Culture MRSA PCR Negative (Negative) 02/05/21 08:56 Blood Type A Positive 02/21/21 16:13 Antibody Screen NEGATIVE 02/21/21 16:13 Crossmatch See Detail 02/21/21 16:[address] 02/04/21 12:[address] DOSE: 537.48 mGy.cm HISTORY: Fall. Left-sided headache. TECHNIQUE: Multiaxial CT images of the head were performed without the use of intravenous contrast. Automated exposure control was utilized for this study. A dose lowering technique was utilized adhering to the principles of ALARA. Comparison: Head CT 01/02/2021. Findings: The paranasal sinuses and mastoid air cells are clear. The calvarium and skull base are intact. There is no mass, hematoma, midline shift, acute infarct. White matter hypodensity is nonspecific but suggestive of microvascular ischemic change. The ventricles and sulci demonstrate mild age-related involutional changes. Stable 7 mm hypodense focus within the right frontal lobe. This may represent calcification or a cavernoma. Impression: No significant change compared to the prior study. No acute intracranial abnormality. ACT 112: Negative or not required by law. Electronically signed by: Kelvin Espinosa M.D. 02/04/2021 3:31 PM Pelvis X-Ray 02/04/21 12:44 XR pelvis 1-2V routine CLINICAL HISTORY: pain fall COMPARISON: None. DISCUSSION: There is minimal cortical irregularity of at the superior aspect of the left trochanter which could represent degenerative process or nondisplaced fracture. There is also questionable cortical irregularity at the lateral aspect of the right femur which may or may not represent nondisplaced fracture. Overall evaluation is significantly limited due to diffuse severe osteopenia and possibly soft tissue edema. Lumbar scoliosis and severe degenerative changes of the lumbar spine are seen. IMPRESSION: Questionable cortical irregularity of the proximal right and left femur which might represent degenerative process or nondisplaced fracture. Further evaluation with CT of the pelvis might be considered if clinically indicated. Diffuse severe osteopenia limits evaluation. Severe degenerative changes of the lumbar spine and scoliosis. ACT 112: Negative or not required by law. The above report was generated using voice recognition software. It may contain grammatical, syntax or spelling errors. Electronically signed by: Remedios Aguirre DO 02/04/2021 1:41 PM Tibia/Fibula X-Ray 02/04/21 12:44 XR knee LT 3V, XR tibia fibula LT 2V HISTORY: 85 years-old Female pain fall . Acute left knee pain status post fall COMPARISON: Left knee radiographs 01/02/2021, a 26/09/2020 TECHNIQUE: 3 views of the left knee with 2 views of the left tibia and fibula FINDINGS: KNEE: Demineralized appearance of the bones. Subacute fixated medial tibial plateau and lateral tibial spine fractures with medial plate and screw fusion. Moderate soft tissue swelling is most pronounced anteromedially. Large joint effusion. Mild tricompartmental osteoarthritis. No additional acute fracture, dislocation or opaque foreign body. Mild soft tissue gas within the infrapatellar tissues. TIBIA/FIBULA: There is moderate medial soft tissue swelling with question soft tissue gas within the calf. No acute fracture or dislocation. IMPRESSION: 1. No acute fracture or dislocation. 2. Fixated subacute medial tibial plateau fracture with unchanged alignment and intact hardware. 3. Moderate soft tissue swelling with areas of soft tissue gas. Correlate with clinical exam findings to exclude infection. 4. Large knee joint effusion. ACT 112: Negative or not required by law. The above report was generated using voice recognition software. It may contain grammatical, syntax or spelling errors. Electronically signed by: Fabricio Desouza M.D. 02/04/2021 1:[address] 02/04/21 18:43 CT SCAN OF THE PELVIS WITHOUT IV CONTRAST CLINICAL HISTORY: Fall. Pelvic pain. Abnormal radiographs. COMPARISON STUDY: Pelvic radiographs dated 02/04/2021. TECHNIQUE: CT scan of the pelvis is performed from the pelvic inlet to the proximal femora. Images are reviewed in the axial, sagittal, and coronal planes. IV contrast was not administered for this examination. A dose lowering technique was utilized adhering to the principles of ALARA. CT DOSE: 989.30 mGy.cm FINDINGS: The skeletal structures are osteopenic. No fracture is identified involving the hips or bony pelvis. There is no evidence of osteonecrosis of the femoral heads. Mild degenerative joint space narrowing is seen in the hips. No h ip joint effusion is identified. No lytic or blastic lesion is identified. The sacroiliac joints are normal. Lumbosacral spondylosis is partially visualized. There is generalized atrophy of the regional musculature. Question mild soft tissue contusion overlying the anterior superior iliac spines bilaterally. The bladder, uterus, and adnexa are normal as visualized. There is no pelvic sidewall or inguinal adenopathy. Diverticulosis is noted in the sigmoid colon without CT evidence of acute diverticulitis. There is no evidence of bowel obstruction. No free fluid or hemorrhage is seen in the pelvis. Atherosclerotic calcification is noted in the distal abdominal aorta and iliac arteries. IMPRESSION: 1. No fracture is identified. 2. Question mild soft tissue contusions overlying the anterior iliac spine bilaterally. Correlate clinically. ACT 112: Negative or not required by law. Dictated: 02/05/2021 6:24 PM Transcribed: 02/05/2021 6:46 PM Franny [id number] N[facility] Electronically signed by: Donovan Chester M.D. 02/05/2021 6:50 PM Chest X-Ray 02/11/21 20:56 XR chest 1V portable HISTORY: 85 years-old Female renal failure acute renal failure COMPARISON: Chest radiograph 02/04/2021 TECHNIQUE: Portable AP view of the chest FINDINGS: Cardiomegaly. Similar widening of the mediastinum. Mild pulmonary vascular congestion. Chronic interstitial coarsening of the lung bases. No pneumothorax, large pleural effusion or lobar airspace consolidation. Surgical clips project over the neck. Degenerative changes of the shoulders and spine. Hiatal hernia. IMPRESSION: 1. Cardiomegaly with pulmonary vascular congestion. 2. Hiatal hernia. ACT 112: Negative or not required by law. The above report was generated using voice recognition software. It may contain grammatical, syntax or spelling errors. Electronically signed by: Fabricio Desouza M.D. 02/11/2021 9:21 AM Knee X-Ray 02/27/21 14:41 XR knee LT 1 or 2V routine CLINICAL HISTORY: s/p ORIF tibial plateau fracture COMPARISON STUDY: Left knee 01/27/2021. FINDINGS: Medial cortical plate transfixed with screws traversing the medial tib ial plateau fracture. The hardware appears intact. The alignment appears anatomic. No significant knee effusion. Mild soft tissue swelling is noted anteriorly. IMPRESSION: 1. No acute fracture or dislocation within the left knee. 2. Fixated subacute medial tibial plateau fracture with unchanged alignment and intact hardware. 3. Mild soft tissue swelling. This has improved. ACT 112: Negative or not required by law. Electronically signed by: Kelvin Espinosa M.D. 02/27/2021 6:34 PM Venous Doppler Study 02/28/21 00:00 LEFT LOWER EXTREMITY VENOUS DOPPLER HISTORY: L leg swelling COMPARISON STUDY: None. FINDINGS: There is normal compressibility, flow, and augmentation within the left lower extremity deep venous system. Complex popliteal cyst measuring 18 x 4 x 7 cm. IMPRESSION: No DVT within the left lower extremity. Large complex popliteal cyst. ACT 112: Negative or not required by law. Electronically signed by: Kelvin Espinosa M.D. 02/28/2021 8:25 AM (1) Post-operative infection Encounter type: initial encounter Postoperative infection type: unspecified type Qualified Code(s): T81.40XA - Infection following a procedure, unspecifi ed, initial encounter
--- NOTE | 2021-02-28 12:32 | Discharge Summary ---
Date of Service February 28, 2021 Admission HPI Per Admitting Provider This is an 85yo F with a PMH of hypertension, hyperlipidemia, CKD III, hypothyroidism and MERY not on CPAP who presents to the ED with worsening left lower extremity pain x4 days. Patient is 1 month s/p ORIF of left tibial plateau fracture by Dr. Smith. [place] well initially but developed worsening pain, redness and swelling to the area over the past week. Was seen at ortho follow up and underwent venous doppler of LLE that was negative for DVT. Came into ED today following fall at home. Son also notes she seems intermittently confused, which is different than her baseline. Has had decreased appetite over the past week or so. No fever, chills, headache, lightheadedness, CP, SOB, nausea, vomiting, abdominal pain, dysuria, diarrhea or constipation. Lives at home with her , sons are nearby and involved. Discharge Data Allergies Allergy/AdvReac Type Severity Reaction Status Date / Time Byaovhr-ADE-EeL Reductase AdvReac Intermediate MUSCLE Verified 02/04/21 22:19 Inhibitor ACHES-ELEVATED [Kgqxixx-Vdq-Ybh Reductase CK WITH Inhibitor] LIPITOR PER HISTORY cefazolin [From Ancef] AdvReac Mild rash on Verified 02/08/21 14:39 abdomen Consultations 02/04/21 15:07 ED Decision to Admit Stat 02/04/21 15:45 Consult Orthopedic Surgery Routine 02/05/21 08:29 Consult Infectious Diseases Routine 02/11/21 08:05 Consult Nephrology Routine 02/12/21 19:27 Consult Cardiology Routine Procedures Performed Operation Date: 02/04/21 11:35 Actual Procedures p Left Knee Incision and Drainage(Left) - Severo Latif MD Operation Date: 02/04/21 16:30 Actual Procedures p Incision and Drainage Extremity(Left) - Severo Latif MD Ordered Studies 02/04/21 12:44 CT head/brain wo con Stat 02/04/21 18:43 CT pelvis wo con Stat 02/28/21 US venous doppler LE LT Urgent Hospital Course (1) Sepsis: Pt was seen and examined for follow up of left knee infection Sitting in chair comfortable with no acute distress She said that she does not have an appetite denies any chest pain, dyspnea, palpitations, dizziness (2) Bacteremia: (1) Sepsis: (2) Infection: (3) Fall: (4) Acute kidney injury superimposed on chronic kidney disease: (5) PSVT (paroxysmal supraventricular tachycardia): (6) HTN (hypertension): (7) Hypothyroidism: (8) HLD (hyperlipidemia): (9) MERY (obstructive sleep apnea): Plan: #. Sepsis 2/2 left lower extremity infection in post-operative setting #. IE POD 22 - s/p I&D left knee joint and left tibia postop infection tolerating antibiotics well continue Daptomycin IV (to complete 6 weeks total) Per ID: 6 weeks of total ATB therapy [started 02/04]. Check CK every week while on daptomycin. Followed by indefinite doxycycline 100 mg daily given her age and the retained hardware [patient had skin rash with cefazolin] based on rediscussion with ID on 02/14. 02/13 ID updated about the new echo findings of vegetation. Will place an U/S guided peripheral follow Ortho recs -- remains stable overall repeat echo: compared to prior study 02/12, no significant change, grossly normal valvular structure and function, LVmotion is normal --Discussed echo with Dr. Berger, no vegetation noted on repeat echocardiogram But recommend to continue with IV daptomycin and p.o. doxycycline indefinitely #. Fall at home In setting of LLE infection Fall precautions, PT/OT Patient lives at home with elderly continue NWB LLE continue antibiotics per infectious disease. -- awaiting acceptance to SNF/Rehab #. Acute kidney injury superimposed on CKD III Baseline creatinine around 1 Nephrology on board: Recommends no IV fluid and no Lasix, later stabilized on her own. No further work-up is needed for etiology of acute renal failure given it occurred on the background of bacteremia/hypertension/antibiotic exposure. Daily labs. Avoid MARICRUZ inhibitor/ARB/NSAIDs/contrast agents. -- crea now back to baseline 1.05 #. Acute blood loss anemia/status post fall and postoperative hemoglobin 7.6 on 02/05, received 1 unit of PRBCs 1 unit pRBC given during the hospital course -- Hg improved to 9.4 Venofer 150mg IV one dose given FeSO4 given # Chest pain, Right sided troponin x 2 negative reproducible with palpation EKG mild t wave inversion inferior lead check repeat echo: possible small mobile echodensity adherent to the posterior mitral valve annulus and area of mitral annular calcification Poor appetite Discussed with envelope maker #. Hypertension Continue atenolol And losartan #. Hypokalemia, hypomagnesemia Replete and monitor #. Paroxysmal SVT Monitor on tele, continue atenolol #. Hypothyroidism Continue levothyroxine #. Depression Continue sertraline DVT Ppx: SQ heparin Code status: FULL PCP: Dr. Roe Dispo: awaiting acceptance to SNF/Rehab Discharge Plan Discharge Items Patient Disposition: Transfer Halfway Fac Reason For Visit: LLE INFECTION, HEADED FOR WASHOUT Discharge Diagnosis: left knee joint septic arthritis; post op wound infection left proximal tibia Activity: Per Instructions section Weightbearing: Left non-weightbearing Weightbearing Comment: lower extremity Non-emergency contact: Surgeon Call non-emergency contact if: your symptoms worsen, your pain is not controlled, your wound has increased redness and your wound has increased drainage Follow-up/Referrals: Issac Roe DO [Primary Care Provider] - Severo Smith MD [Physician] - 03/11/21 2:00 pm Diet: 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 Allowed for range of motion left knee/lower leg as tolerated. Encourage full knee straightening and bending left knee. May do strengthening exercises as tolerated. Allowed to shower/bathe left lower extremity. Ice to left knee as needed for pain and/or swelling. Use walker or wheelchair to assist with ambulation. No brace is needed on your left leg. Lovenox or SQ heparin for DVT prophylaxis as ordered. Tylenol as needed for pain. Pain medication as ordered if needed. Antibiotics as ordered. Stand-Alone Forms: My [facility] Medications and DC Order Prescriptions: No Action pantoprazole 40 mg Tablet,Delayed Release (Dr/Ec) 40 mg PO BID RF: 0 levothyroxine 125 mcg tablet 125 mcg PO DAILYBB RF: 0 atenolol 25 mg tablet 25 mg PO DAILY RF: 0 aspirin 81 mg Tablet,Delayed Release (Dr/Ec) 81 mg PO BID Qty: 60 RF: 0 losartan 25 mg tablet 25 mg PO QAM RF: 0 sertraline 100 mg tablet 100 mg PO HS RF: 0 clonazepam 1 mg tablet 1 mg PO HS RF: 0 melatonin 5 mg Tablet 5 mg PO HS PRN (Reason: Insomnia) RF: 0 Admission Data Admit Date/Time: 02/04/21 15:45 Attending Provider: Maribell Dye Admit Provider: Maribell Dye Primary Care Provider: Issac Roe Other Providers: Maribell Dye ; Roman Haley ; Nery Person ; Tawanda Victor I. ; Saroj Gilliam II ; Irma Stratton ; Jin Mc ; [facility] ; Gage Reaves ; Severo Latif ; Honorio Alex ; [place],[facility] ; Quinten Banegas
== END 2021-02-28 13:15 | DRG 856 ==
LOC: ED 12:34 → SUATTDRO 15:45 → 2N 15:45 → 2W 02-14 16:05

== ENCOUNTER 2021-07-13 18:04 | Inpatient (IN) ==
[2021-07-13] MEDS ORDERED: MoRPHine SULFATE 4 MG/ML 1 ML CARP\\VIAL IV STA ×2 (18:09→18:40)
[2021-07-13] MEDS ORDERED: ONDANSETRON INJ 2 MG/ML 2 ML VIAL IV STA (18:09)
--- NOTE | 2021-07-13 18:12 | Emergency Department Note ---
Impression & Plan Hip fracture, left ADMIT ED Provider Note HPI: The patient is an 85-year-old female who presents the emergency department with a chief complaint of left hip pain after a mechanical fall. Patient states that she slipped and fell when standing in her kitchen sink, states that she fell onto her left hip and had acute pain in that area afterwards. She denies any other focal complaint of pain. Patient arrives via EMS, she was given a subdissociative dose of ketamine for pain in route. Patient tells me she is not on any blood thinning medications. On arrival here to the ED she is intermittently having severe pain in the left hip with any type of movement. She does have motor and sensory function intact distally in the left leg. She is alert and otherwise hemodynamically stable. ROS: -MSK: Left hip pain *10 point review systems was conducted and is otherwise negative unless stated above *Outpatient medications and allergy history reviewed PE: General: Alert and oriented HEENT: Normocephalic, atraumatic Eyes: Extraocular eye movement is intact, no scleral erythema Pulmonary: Clear to auscultation bilaterally, no wheezing Cardio: Regular rate and rhythm GI: Abdomen is soft, nontender : No suprapubic tenderness MSK: Patient is lying on her right side with the left leg slightly flexed, there is pain to palpation in the area of the left hip, motor and sensory function is intact distally in the left foot Skin: No evidence of rash Neuro: Alert, no focal deficits 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 X-ray imaging unfortunately does show evidence of a displaced intertrochanteric fracture on the left side. Patient was given multiple doses of morphine here in the ED for pain and a dose of Ativan for anxiety/muscle spasms. She does have motor and sensory function intact distally in left lower extremity. Lab work otherwise shows a leukocytosis which I suspect is reactive, she is not noted to be on any blood thinning medications, EKG shows sinus tachycardia which I suspect is secondary to pain. CT imaging of the head was obtained given the patient's mechanical fall and this does not show any evidence of intracranial bleeding. Orthopedic team was consulted routine from the ED, case was discussed with the on-call hospitalist for [facility], Dr. Zepeda, and the patient was admitted in stable condition for further care. Diagnosis: 1. Hip fracture, left-sided, closed 2. Mechanical fall 3. 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 [employer]" CKD (chronic kidney disease), stage III Depression Esophagitis (12/26/10) History of papillary adenocarcinoma of thyroid HLD (hyperlipidemia) HTN (hypertension) Hypertensive heart disease Hypothyroidism MERY (obstructive sleep apnea) Panic disorder (12/26/10) Thyroid cancer Surgical History Status post appendectomy Status post thyroidectomy Family History Other Diabetes Hypertension Social History Smoking Status: Never smoker Second Hand Exposure: No; Hx Alcohol Use: No Hx Substance Use: No Preferred Language: Yi Communication Ability: Impaired Senior Marketing Manager Required: No Beliefs That Will Affect Care: None Current Living Situation: Family Current Living Situation Comment: lives with grandsom Feels Safe at Home: Yes Assistive Devices: None Allergies Allergies Allergy/AdvReac Type Severity Reaction Status Date / Time Xcmfpme-[id number]-HxM Reductase AdvReac Intermediate MUSCLE Verified 07/13/21 18:37 Inhibitor ACHES-ELEVATED [Jtsumlb-Ybz-Hvy Reductase CK WITH Inhibitor] LIPITOR PER HISTORY cefazolin [From Ancef] AdvReac Mild rash on Verified 07/13/21 18:37 abdomen Home Meds Home Medications Medication Instructions Recorded Confirmed pantoprazole 40 mg tablet,delayed 40 mg PO BID 10/07/18 07/13/21 release levothyroxine 125 mcg tablet 125 mcg PO DAILYBB 09/18/20 07/13/21 atenolol 25 mg tablet 25 mg PO DAILY 01/06/21 07/13/21 losartan 25 mg tablet 25 mg PO QAM 02/04/21 07/13/21 melatonin 5 mg tablet 5 mg PO HS PRN 02/04/21 07/13/21 sertraline 100 mg tablet 100 mg PO HS 02/04/21 07/13/21 doxycycline hyclate 100 mg capsule 100 mg PO DAILY 07/13/21 07/13/21 ferrous sulfate 325 mg (65 mg 325 mg PO BID 07/13/21 07/13/21 iron) tablet Previous Rx's Medication Instructions Recorded acetaminophen 500 mg tablet 1,000 mg PO Q8 PRN #30 tab 02/28/21 (Tylenol Extra Strength) daptomycin 500 mg intravenous 400 mg IV DAILY #1 ea 02/28/21 solution Results & Data (ED) Vital Signs Vital Signs - 24 hr 07/13/21 18:04 07/13/21 18:34 07/13/21 18:35 Temperature 36.5 C Temperature Source Oral Pulse Rate 127 H 128 H Pulse Rate [Right Finger] Respiratory Rate 16 17 Respiratory Effort / Characteristics Respiratory Depth Blood Pressure 170/105 H Blood Pressure [Right Arm] Blood Pressure Mean 126 Blood Pressure Mean [Right Arm] Blood Pressure Position [Right Arm] Pulse Oximetry 95 96 96 Oxygen Delivery Method Room Air Room Air Sepsis Recent Fever Within 48 Hours No Sepsis New/Unexplained Change in Mental Status No Sepsis Action Taken by Nursing No Action Required 07/13/21 18:37 07/13/21 19:42 Temperature Temperature Source Pulse Rate 121 H Pulse Rate [Right Finger] 128 H Respiratory Rate 16 16 Respiratory Effort / Characteristics Non-Labored Respiratory Depth Normal Blood Pressure 154/122 H Blood Pressure [Right Arm] 177/95 H Blood Pressure Mean 132 Blood Pressure Mean [Right Arm] 122 Blood Pressure Position [Right Arm] Lying Pulse Oximetry 94 90 Oxygen Delivery Method Room Air Sepsis Recent Fever Within 48 Hours Sepsis New/Unexplained Change in Mental Status Sepsis Action Taken by Nursing Laboratory Data Result diagrams: 07/13/21 18:30 07/13/21 18:30 Lab Results 07/13/21 07/13/21 07/13/21 Range/Units 18:25 18:30 18:30 WBC 17.66 H (4.8-10.8) K/uL RBC 3.74 L (4.2-5.4) M/uL Hgb 10.5 L (12.0-16.0) g/dL Hct 33.2 L (37-47) % MCV 88.8 (80-100) fL MCH 28.1 (25-34) pg MCHC 31.6 L (32-36) g/dL RDW Std Deviation 47.2 H (36.4-46.3) fL RDW Coeff of Brandan 14.4 (11.5-14.5) % Plt Count 319 (130-400) K/uL MPV 9.0 (7.4-10.4) fL Immature Gran % (Auto) 0.3 % Neut % (Auto) 86.4 % Lymph % (Auto) 7.7 % [place] % (Auto) 5.2 % Eos % (Auto) 0.2 % Baso % (Auto) 0.2 % Neut # (Auto) 15.26 H (1.4-6.5) K/uL Lymph # (Auto) 1.36 (1.2-3.4) K/uL [place] # (Auto) 0.91 H (0.11-0.59) K/uL Eos # (Auto) 0.04 (0-0.5) K/uL Baso # (Auto) 0.04 (0-0.2) K/uL Immature Gran # (Auto) 0.05 H (0.00-0.02) K/uL RBC Morphology Unremarkable PT (9.0-12.0) Seconds INR (0.9-1.1) Sodium 139 (136-145) mmol/L Potassium 4.0 (3.5-5.1) mmol/L Chloride 109 H (98-107) mmol/L Carbon Dioxide 20 L (21-32) mmol/L Anion Gap 10 (3-11) BUN 30 H (6-23) mg/dl Creatinine 0.87 (0.6-1.2) mg/dl Est Cr Clr Drug Dosing 48.0 ml/min Est GFR ( Amer) 71.4 ml/min Est GFR (Non-Af Amer) 61.6 ml/min BUN/Creatinine Ratio 34.5 H (10-20) Glucose 161 H (70-99(Fasting)) mg/dl Calcium 9.9 (8.5-10.1) mg/dl Total Bilirubin 0.3 (0.2-1.0) mg/dl AST 18 (13-39) U/L ALT 16 (7-52) U/L Alkaline Phosphatase 83 (34-104) U/L Total Protein 6.4 (6.0-8.3) gm/dl Albumin 3.9 (3.4-5.0) gm/dl Globulin 2.5 (2.5-4.0) gm/dl Albumin/Globulin Ratio 1.6 (0.9-2) Urine Color Dark Yellow Urine Appearance Clear (Clear) Urine pH 5.5 (4.5-7.5) Ur Specific [place] 1.028 (1.000-1.030) Urine Protein Trace H (Negative) Urine Glucose (UA) Negative (Negative) Urine Ketones 1+ H (Negative) Urine Blood Negative (Negative) Urine Nitrite Negative (Negative) Urine Bilirubin Negative (Negative) Urine Urobilinogen Negative (Negative) Ur Leukocyte Esterase Negative (Negative) Urine WBC (Auto) 1-5 (0-5) /hpf Urine RBC (Auto) 0-4 (0-4) /hpf U Hyaline Cast (Auto) 1-5 (0-5) /lpf U Epithel Cells (Auto) 5-10 H (0-5) /lpf Urine Bacteria (Auto) 1+ H (Negative) Urine Mucus Present A (None Prsent) 07/13/21 Range/Units 18:30 WBC (4.8-10.8) K/uL RBC (4.2-5.4) M/uL Hgb (12.0-16.0) g/dL Hct (37-47) % MCV (80-100) fL MCH (25-34) pg MCHC (32-36) g/dL RDW Std Deviation (36.4-46.3) fL RDW Coeff of Brandan (11.5-14.5) % Plt Count (130-400) K/uL MPV (7.4-10.4) fL Immature Gran % (Auto) % Neut % (Auto) % Lymph % (Auto) % [place] % (Auto) % Eos % (Auto) % Baso % (Auto) % Neut # (Auto) (1.4-6.5) K/uL Lymph # (Auto) (1.2-3.4) K/uL [place] # (Auto) (0.11-0.59) K/uL Eos # (Auto) (0-0.5) K/uL Baso # (Auto) (0-0.2) K/uL Immature Gran # (Auto) (0.00-0.02) K/uL RBC Morphology PT 11.2 (9.0-12.0) Seconds INR 1.1 (0.9-1.1) Sodium (136-145) mmol/L Potassium (3.5-5.1) mmol/L Chloride (98-107) mmol/L Carbon Dioxide (21-32) mmol/L Anion Gap (3-11) BUN (6-23) mg/dl Creatinine (0.6-1.2) mg/dl Est Cr Clr Drug Dosing ml/min Est GFR ( Amer) ml/min Est GFR (Non-Af Amer) ml/min BUN/Creatinine Ratio (10-20) Glucose (70-99(Fasting)) mg/dl Calcium (8.5-10.1) mg/dl Total Bilirubin (0.2-1.0) mg/dl AST (13-39) U/L ALT (7-52) U/L Alkaline Phosphatase (34-104) U/L Total Protein (6.0-8.3) gm/dl Albumin (3.4-5.0) gm/dl Globulin (2.5-4.0) gm/dl Albumin/Globulin Ratio (0.9-2) Urine Color Urine Appearance (Clear) Urine pH (4.5-7.5) Ur Specific [place] (1.000-1.030) Urine Protein (Negative) Urine Glucose (UA) (Negative) Urine Ketones (Negative) Urine Blood (Negative) Urine Nitrite (Negative) Urine Bilirubin (Negative) Urine Urobilinogen (Negative) Ur Leukocyte Esterase (Negative) Urine WBC (Auto) (0-5) /hpf Urine RBC (Auto) (0-4) /hpf U Hyaline Cast (Auto) (0-5) /lpf U Epithel Cells (Auto) (0-5) /lpf Urine Bacteria (Auto) (Negative) Urine Mucus (None Prsent) Administered Medications Discontinued Medications Sodium Chloride (Nss 1000ml) 500 mls @ 999 mls/hr IV .Q31M ONE Stop: 07/13/21 18:48 Last Admin: 07/13/21 18:37 Dose: 999 mls/hr Documented by: [id number] Lorazepam (Lorazepam 2 Mg/1 Ml Vial) 1 mg IV NOW STA Stop: 07/13/21 19:01 Last Admin: 07/13/21 19:13 Dose: 1 mg Documented by: [id number] Morphine Sulfate (Morphine Sulfate 4 Mg/Ml 1 Ml Carp\\Vial) 4 mg IV NOW STA Stop: 07/13/21 18:10 Last Admin: 07/13/21 18:31 Dose: 4 mg Documented by: [id number] Morphine Sulfate (Morphine Sulfate 4 Mg/Ml 1 Ml Carp\\Vial) 4 mg IV NOW STA Stop: 07/13/21 18:41 Last Admin: 07/13/21 18:41 Dose: 4 mg Documented by: [id number] Ondansetron HCl (Ondansetron Inj 2 Mg/Ml 2 Ml Vial) 4 mg IV NOW STA Stop: 07/13/21 18:10 Last Admin: 07/13/21 18:31 Dose: 4 mg Documented by: [id number] Imaging Data Radiologist's Impression: Chest X-Ray 07/13/21 18:09 XR chest 1V portable CLINICAL HISTORY: fall. Evaluate cardiopulmonary status COMPARISON STUDY: 02/11/2021 TECHNIQUE: 1 view of the chest FINDINGS: Single frontal view of the chest demonstrates the heart to again be enlarged. The aorta is atherosclerotic and ectatic. The lungs are clear of alveolar opacities. There is no evidence for pleural effusion. There is no evidence for vascular congestion. There is no acute osseous pathology. There are marked degenerative changes of the right shoulder. IMPRESSION: 1. No acute cardiopulmonary disease. ACT 112: Negative or not required by law. Electronically signed by: Benji Acevedo M.D. 07/13/2021 7:06 PM Hip/Pelvis X-Ray 07/13/21 18:09 XR hip LT 2V w pelvis CLINICAL HISTORY: L hip pain s/p fall. COMPARISON STUDY: 01/27/2021 TECHNIQUE: AP pelvis and 2 left hip views FINDINGS: Bones: There has been interval development of a comminuted, intratrochanteric fracture of the left femoral neck. Displacement of fracture fragments is present. 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 No other fractures are identified. There is no lytic or blastic lesion. Joints: The femoral head maintains its anatomic position within the acetabulum. There is marked joint space narrowing. Narrowing of the right hip joint space is also present. The remaining bones are in anatomic alignment. Soft tissues: There is no focal soft tissue abnormality. There is no radiopaque foreign body. IMPRESSION: 1. Comminuted, intratrochanteric fracture of the left femoral neck displacement of fracture fragments and coxa varus deformity. ACT 112: Negative or not required by law. Electronically signed by: Benji Acevedo M.D. 07/13/2021 7:[address] 07/13/21 18:10 CT head/brain wo con CLINICAL HISTORY: Status post fall with trauma to the head. Pain. COMPARISON STUDY: 12/27/2020 CT DOSE: 1074.96 mGy.cm TECHNIQUE: Standard CT of the Brain was performed without IV contrast. A dose lowering technique was utilized adhering to the principles of ALARA. FINDINGS: Extraaxial space: There is no evidence for subdural hematoma. There are no extra-axial fluid collections. Ventricles and cisterns: The ventricles are mildly dilated bilaterally. There is no evidence for midline shift or mass effect. Parenchyma: There is no subarachnoid or intraparenchymal hemorrhage. There is a stable hyperdense focus within the right frontal lobe, again most likely representing a calcification. There is no evidence for an acute infarct or cerebral edema. There is mild cerebral cortical atrophy and decreased attenuation in the periventricular white matter representing remote small vessel disease. There are no gross mass lesions. Osseous structures: There is no evidence for an acute fracture. The visualized paranasal sinuses are clear. The mastoid air cells are clear bilaterally. Soft tissues: There is no evidence for focal soft tissue swelling. IMPRESSION: 1. No acute intracerebral pathology. 2. Cerebral cortical atrophy and remote small vessel disease. 3. Stable 7 mm hyperdensity within the right frontal lobe, most likely representing dystrophic calcification. ACT 112: Negative or not required by law. Electronically signed by: Benji Acevedo M.D. 07/13/2021 7:38 PM Discharge Plan Visit Data Chief Complaint: Hip Pain ED Provider: Jin No Discharge Problem: Hip fracture, left Forms Stand Alone Forms: [facility] Prescriptions Prescriptions: No Action pantoprazole 40 mg Tablet,Delayed Release (Dr/Ec) 40 mg PO BID RF: 0 levothyroxine 125 mcg tablet 125 mcg PO DAILYBB RF: 0 atenolol 25 mg tablet 25 mg PO DAILY RF: 0 losartan 25 mg tablet 25 mg PO QAM RF: 0 sertraline 100 mg tablet 100 mg PO HS RF: 0 melatonin 5 mg Tablet 5 mg PO HS PRN (Reason: Insomnia) RF: 0 acetaminophen [Tylenol Extra Strength] 500 mg Tablet 1,000 mg PO Q8 PRN (Reason: fever or pain) Qty: 30 RF: 0 daptomycin 500 mg recon soln 400 mg IV DAILY Qty: 1 RF: 0 doxycycline hyclate 100 mg capsule 100 mg PO DAILY RF: 0 ferrous sulfate 325 mg (65 mg iron) Tablet 325 mg PO BID RF: 0 Referrals Referrals: Jasbir Cason DO [Primary Care Provider] - Discharge Problem: Hip fracture, left Qualifiers: Encounter type: initial encounter Fracture type: closed Qualified Code(s): S72.002A - Fracture of unspecified part of neck of left femur, initial encounter for closed fracture
[2021-07-13] MEDS ORDERED: SODIUM CHLORIDE 0.9% 1000ML 500 ML IV ONE (18:18)
[2021-07-13 18:44] LABS: Hematocrit (blood only) 33.2 % (37-47); Hemoglobin 10.5 g/dL (12.0-16.0); Mean Corpuscular Hemoglobin 28.1 pg (25-34); Mean Corpuscular Hgb Conc 31.6 g/dL (32-36); Mean Corpuscular Volume 88.8 fL (80-100); Platelet Count 319 K/uL (130-400); RDW Coefficient of Variation 14.4 % (11.5-14.5); RDW Standard Deviation 47.2 fL (36.4-46.3); Red Blood Count 3.74 M/uL (4.2-5.4); White Blood Count 17.66 K/uL (4.8-10.8)
[2021-07-13 18:47] LABS: Appearance Urine Clear (Clear); Bilirubin Urine Negative (Negative); Blood Urine Negative (Negative); Color Urine Dark Yellow; Glucose Urine UA Negative (Negative); Ketones Urine 1+ (Negative); Leukocyte Esterase Urine Negative (Negative); Nitrite Urine Negative (Negative); Protein Urine Trace (Negative); Specific Gravity Urine 1.028 (1.000-1.030); Urobilinogen Urine Negative (Negative); pH Urine 5.5 (4.5-7.5)
[2021-07-13 18:52] LABS: INR 1.1 (0.9-1.1); Prothrombin Time 11.2 Seconds (9.0-12.0)
[2021-07-13] MEDS ORDERED: LORazepam 2 MG/1 ML VIAL IV STA (19:00)
[2021-07-13 19:01] LABS: Mucus Urine Present (None Prsent)
[2021-07-13 19:01] LABS: Albumin Globulin Ratio 1.6 (0.9-2); Albumin Level 3.9 gm/dl (3.4-5.0); BUN Creatinine Ratio 34.5 (10-20); Bilirubin,Total 0.3 mg/dl (0.2-1.0); Calcium 9.9 mg/dl (8.5-10.1); Est GFR (African American) 71.4 ml/min; Est GFR (Non-African American) 61.6 ml/min; Globulin 2.5 gm/dl (2.5-4.0); Total Protein 6.4 gm/dl (6.0-8.3)
[2021-07-13 19:02] LABS: RBC Urine Automated 0-4 /hpf (0-4)
[2021-07-13 19:03] LABS: Bacteria Urine Automated 1+ (Negative)
[2021-07-13 19:05] LABS: Basophils # (auto) 0.04 K/uL (0-0.2); Basophils % (auto) 0.2 %; Eosinophils # (auto) 0.04 K/uL (0-0.5); Eosinophils % (auto) 0.2 %; Immature Granulocytes # (auto) 0.05 K/uL (0.00-0.02); Immature Granulocytes % (auto) 0.3 %; Lymphocytes # (auto) 1.36 K/uL (1.2-3.4); Lymphocytes % (auto) 7.7 %; Monocytes # (auto) 0.91 K/uL (0.11-0.59); Monocytes % (auto) 5.2 %; Neutrophils # (auto) 15.26 K/uL (1.4-6.5); Neutrophils % (auto) 86.4 %; RBC Morphology Unremarkable
--- NOTE | 2021-07-13 19:07 | XRay Report ---
XR hip LT 2V w pelvis CLINICAL HISTORY: L hip pain s/p fall. COMPARISON STUDY: 01/27/2021 TECHNIQUE: AP pelvis and 2 left hip views FINDINGS: Bones: There has been interval development of a comminuted, intratrochanteric fracture of the left fe moral neck. Displacement of fracture fragments is present. 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 No other fractures are identified. There is no lytic or blastic lesion. Joints: The femoral head maintains its anatomic position within the acetabulum. There is marked joint space narrowing. Narrowing of the right hip joint space is also present. The remaining bones are in anatomic alignment . Soft tissues: There is no focal soft tissue abnormality. There is no radiopaque foreign body. IMPRESSION: 1. Comminuted, intratrochanteric fracture of the left femoral neck displacement of fracture fragments and coxa varus deformity. ACT 112: Negative or not required by law. Electronically signed by: Benji Acevedo M.D. 07/13/2021 7:05 PM
--- NOTE | 2021-07-13 19:08 | XRay Report ---
XR chest 1V portable CLINICAL HISTORY: fall. Evaluate cardiopulmonary status COMPARISON STUDY: 02/11/2021 TECHNIQUE: 1 view of the chest FINDINGS: Single frontal view of the chest demonstrates the heart to again be enlarged. The aorta is atheroscle rotic and ectatic. The lungs are clear of alveolar opacities. There is no evidence for pleural effusi on. There is no evidence for vascular congestion. There is no acute osseous pathology. There are elías ed degenerative changes of the right shoulder. IMPRESSION: 1. No acute cardiopulmonary disease. ACT 112: Negative or not required by law. Electronically signed by: Benji Acevedo M.D. 07/13/2021 7:06 PM
--- NOTE | 2021-07-13 19:40 | CT Scan Report ---
CT head/brain wo con CLINICAL HISTORY: Status post fall with trauma to the head. Pain. COMPARISON STUDY: 12/27/2020 CT DOSE: 1074.96 mGy.cm TECHNIQUE: Standard CT of the Brain was performed without IV contrast. A dose lowering technique was utilized adhering to the principles of ALARA. FINDINGS: Extraaxial space: There is no evidence for subdural hematoma. There are no extra-axial fluid collecti ons. Ventricles and cisterns: The ventricles are mildly dilated bilaterally. There is no evidence for midl ine shift or mass effect. Parenchyma: There is no subarachnoid or intraparenchymal hemorrhage. There is a stable hyperdense foc us within the right frontal lobe, again most likely representing a calcification. There is no evidenc e for an acute infarct or cerebral edema. There is mild cerebral cortical atrophy and decreased atten uation in the periventricular white matter representing remote small vessel disease. There are no jessica ss mass lesions. Osseous structures: There is no evidence for an acute fracture. The visualized paranasal sinuses are clear. The mastoid air cells are clear bilaterally. Soft tissues: There is no evidence for focal soft tissue swelling. IMPRESSION: 1. No acute intracerebral pathology. 2. Cerebral cortical atrophy and remote small vessel disease. 3. Stable 7 mm hyperdensity within the right frontal lobe, most likely representing dystrophic calcif ication. ACT 112: Negative or not required by law. Electronically signed by: Benji Acevedo M.D. 07/13/2021 7:38 PM
[2021-07-13] MEDS ORDERED: SODIUM CHLORIDE 0.9% 500 ML IV SCH (20:45)
[2021-07-13] MEDS ORDERED: cefTRIAXone SODIUM 1000MG/50ML D5W IV ONE (20:55)
[2021-07-13] MEDS: cefTRIAXone SODIUM 1,000 MG in DEXTROSE 5% 50 ML IV SCH (21:32)
[2021-07-13] MEDS: D5W AND 1/2NSS 1,000 ML IV SCH (21:39)
[2021-07-13] MEDS ORDERED: ACETAMINOPHEN 325 MG TAB PO PRN (22:00)
[2021-07-13] MEDS ORDERED: METOPROLOL TARTRATE 1 MG/ML VIAL IV PRN (22:00)
[2021-07-13] MEDS ORDERED: NITROGLYCERIN SL 0.4 MG/TAB TAB SL PRN (22:00)
[2021-07-13] MEDS ORDERED: MELATONIN 3 MG TAB PO PRN (22:19)
[2021-07-13] MEDS ORDERED: CARBOHYDRATES FOR HYPOGLYCEMIA PO PRN (22:30)
[2021-07-13] MEDS ORDERED: GLUCOSE 40% GEL 15 GM TUBE PO PRN (22:30)
[2021-07-13] MEDS ORDERED: GLUCAGON FOR INJ 1 MG VIAL IM PRN (22:30)
[2021-07-13] MEDS ORDERED: DEXTROSE 50% 50 ML SYRINGE IV PRN (22:30)
[2021-07-13] MEDS ORDERED: GLUCOSE 10 TABS/TUBE PO PRN (22:30)
--- NOTE | 2021-07-13 22:40 | History and Physical Report ---
DATE OF ADMISSION: 07/13/2021. CHIEF COMPLAINT: Status post fall and left hip fracture. HISTORY OF PRESENT ILLNESS: This 85-year-old female has past medical history significant for hypertension, hyperlipidemia, chronic kidney disease stage III, hypothyroidism, obstructive sleep apnea, not on CPAP, history of cerebral aneurysm, AVM of proximal jejunum, esophagitis, chronic Jason ulcer, stress and urge incontinence, hiatal hernia, osteoporosis, macular degeneration, panic disorder, depression, history of MSSA bacteremia, presents with fall and left hip fracture. The patient in February had a fall. At that time, she had a left tibial plateau fracture, status post open reduction and internal fixation. At that time, hospital stay was complicated by infection of the surgical site, status post I and D and was treated with 6 weeks of IV daptomycin and indefinite doxycycline. Currently, the patient lives alone at home, walks with a walker. Son lives about 2 minutes away. The patient was trying to getting her medication when she had a mechanical fall on the left side. Son found her sitting on the chair and she was brought in here and found to have a left hip fracture. Currently, seems somewhat dry, but resting comfortably, tachycardic. When she fell, she did not hit her head and no loss of consciousness. Denies any headache. No dizziness, no blurred visions, no earache, no runny nose, no sore throat, no cough, no fever, no chills, no chest pain, no shortness of breath, no nausea, no vomiting, no abdominal pain. Normal bowel and bladder movements. Denies any blood in stool or black stools. Denies any burning micturition. Appetite is okay. No difficulty swallowing. ALLERGIES: STATINS AND CEFAZOLIN. PAST MEDICAL HISTORY: As mentioned above. PAST SURGICAL HISTORY: Right knee arthroplasty, colonoscopy, colonoscopy with biopsy, cystoscopy, EGDs, EGD with biopsy, right knee arthroscopy, appendectomy, complete thyroidectomy, cataract surgery, repair of right condylar knee fracture. MEDICATIONS: The patient is on Tylenol Extra Strength 1000 mg p.o. q.8 hours p.r.n., doxycycline 100 mg p.o. daily, levothyroxine 125 mcg p.o. daily, losartan 25 mg p.o. a.m., melatonin 5 mg p.o. at bedtime p.r.n., Protonix 40 mg p.o. b.i.d., sertraline 100 mg p.o. at bedtime. FAMILY HISTORY: Significant for maternal grandmother had cancer; daughter has diabetes; mother had diabetes; sister has diabetes; mother had heart disorder, hypertension; father had interstitial lung disease. SOCIAL HISTORY: Lives alone. No alcohol, no tobacco use, no drug use. REVIEW OF SYSTEMS: As per HPI. Rest of the review of systems is negative. PHYSICAL EXAMINATION: GENERAL: The patient is old and frail, not in acute distress. VITAL SIGNS: Temperature 36.5, pulse 128, respiratory rate 16, blood pressure 177/95, oxygen 95% on room air. HEENT: Pupils equal, round and reactive to light. Oral mucosa dry. NECK: No JVD, no neck masses. CARDIOVASCULAR: S1 and S2 heard. Tachycardia. No murmurs. RESPIRATORY SYSTEM: Normal AP diameter. No accessory muscle use. No wheezing, no crackles. ABDOMEN: Soft, bowel sounds present, nontender, no distention. CENTRAL NERVOUS SYSTEM: Alert and oriented. Speech is clear. No facial droop. Obeys simple commands. Moves extremities. EXTREMITIES: Left lower extremity is shortened and externally rotated. No edema, no erythema seen. LABORATORY DATA: WBC 17.6, hemoglobin 10.5, hematocrit 33.2, platelets 319. PT 11.2, INR 1.1. Sodium 139, potassium 4, chloride 109, bicarbonate 20, BUN 30, creatinine 0.8, serum glucose 161, calcium 9.9, total bilirubin 0.3, AST 18, ALT 16, alkaline phosphatase 83. Urinalysis, +1 ketones, +1 bacteria. SARS-CoV-2 rapid test negative. IMAGING DATA: CT of the head: No acute findings. Stable 7 mm hyperdensity within the right frontal lobe, most likely represents dystrophic calcification. Hip and pelvic x-ray: Comminuted intertrochanteric fracture of left femoral neck with displacement of fracture fragments and Coxa vara deformity. Chest x- ray: No acute cardiopulmonary disease. EKG: Sinus tachycardia at a rate of 132, nonspecific ST changes. ASSESSMENT AND PLAN: This 85-year-old female presents with mechanical fall and left hip fracture. 1. Mechanical fall and left hip fracture. We will admit to med-telemetry because of tachycardia. N.p.o., pain control, IV fluids. The patient's laboratories were okay except for elevated white count. EKG with sinus tachycardia. Once the patient is hemodynamically stabilized, the patient will be acceptable risk to proceed with surgery. 2. Possible urinary tract infection, leukocytosis. Leukocytosis could be from stress reaction from the fall and fracture or also from UTI. We will place her on Rocephin until the final cultures are available. 3. History of hypertension, holding losartan, place her on IV Lopressor. 4. Tachycardia, could be from dehydration or from pain.. Place her on IV fluids. We will monitor. 5. Hypothyroidism. Continue Synthroid. 6. Esophagitis and history of chronic Jason ulcers. On Protonix, which will be continued. 7. Sleep apnea. We will use oxygen while at bedtime. 8. Depression, panic disorder. Continue her sertraline. 9. Prediabetes. We will follow HbA1c levels.ISS 10. Anemia, hemoglobin 10.5. She is no longer on iron supplements as per the son. We will follow Hemoccult studies. 11. Deep venous thrombosis prophylaxis, could not place sequential compression devices because of fracture and also currently no anticoagulation in anticipation of a procedure. Further anticoagulation as per orthopedics. DISPOSITION: Admit to med-tele. PT/OT prior to discharge. Social service to help with discharge planning. Level 1, full code. Job ID: [id number] MTDD
[2021-07-13] MEDS: HYDROmorphone INJ 0.5 MG/0.5 ML SYR IV PRN (22:55)
[2021-07-13] MEDS: PANTOprazole 40 MG TAB PO SCH (22:58)
[2021-07-13] MEDS: SERTRALINE HCL 100 MG TABLET PO SCH (22:58)
[2021-07-14] MEDS: HYDROmorphone INJ 0.5 MG/0.5 ML SYR IV PRN ×4 (03:06→20:47)
[2021-07-14 05:55] LABS: Basophils # (auto) 0.01 K/uL (0-0.2); Basophils % (auto) 0.1 %; Eosinophils # (auto) 0.01 K/uL (0-0.5); Eosinophils % (auto) 0.1 %; Hematocrit (blood only) 25.6 % (37-47); Hemoglobin 8.3 g/dL (12.0-16.0); Immature Granulocytes # (auto) 0.02 K/uL (0.00-0.02); Immature Granulocytes % (auto) 0.2 %; Lymphocytes # (auto) 1.11 K/uL (1.2-3.4); Lymphocytes % (auto) 11.9 %; Mean Corpuscular Hemoglobin 28.5 pg (25-34); Mean Corpuscular Hgb Conc 32.4 g/dL (32-36); Mean Platelet Volume 9.1 fL (7.4-10.4); Monocytes % (auto) 9.6 %; Neutrophils % (auto) 78.1 %; Platelet Count 269 K/uL (130-400); RDW Coefficient of Variation 14.7 % (11.5-14.5); RDW Standard Deviation 47.4 fL (36.4-46.3); Red Blood Count 2.91 M/uL (4.2-5.4); White Blood Count 9.35 K/uL (4.8-10.8)
[2021-07-14] MEDS: LEVOTHYROXINE SODIUM 125 MCG TABLET PO SCH (06:02)
[2021-07-14 06:10] LABS: Calcium 9.1 mg/dl (8.5-10.1); Creatinine Clr Calc Pharmacy 50.5 ml/min; Est GFR (African American) 80.2 ml/min; Est GFR (Non-African American) 69.2 ml/min; Magnesium 1.6 mg/dl (1.7-2.4); Potassium 4.3 mmol/L (3.5-5.1)
[2021-07-14 07:17] LABS: Estimated Average Glucose 131 mg/dl; Hemoglobin A1C 6.2 % (4.5-5.6)
[2021-07-14] MEDS ORDERED: INSULIN ASPART PER UNIT SC SCH ×2 (07:30→12:00)
--- NOTE | 2021-07-14 07:51 | CT Scan Report ---
CT hip LT wo con CLINICAL HISTORY: eval fx TECHNIQUE: Multidetector row helical CT of the right knee was performed without intravenous contrast. Coronal and sagittal reformations were obtained. Automated dose lowering techniques and/or adjustmen t according to patient size were utilized for this examination. Comparison: Comparison is made to left hip radiograph 07/13/2021 FINDINGS: Comminuted intratrochanteric fracture of the left femoral neck. There is some overriding of fragments and apex lateral angulation. The joint spaces are maintained. Soft tissue swelling is seen in the ad jacent musculature. IMPRESSION: Comminuted intratrochanteric fracture of the left femoral neck. ACT 112: Negative or not required by law. Electronically signed by: Juvencio Fiore M.D. 07/14/2021 7:50 AM
[2021-07-14] MEDS: D5W AND 1/2NSS 1,000 ML IV SCH ×2 (08:01→23:14)
[2021-07-14] MEDS: DOXYCYCLINE HYCLATE 100 MG CAP PO SCH (08:30)
[2021-07-14] MEDS: PANTOprazole 40 MG TAB PO SCH ×2 (08:30→20:46)
[2021-07-14] MEDS ORDERED: Nursing to Pharmacy Communication SCH ×2 (08:45→16:45)
[2021-07-14] MEDS ORDERED: VANCOMYCIN CONSULT ACTIVE PRN (09:07)
--- NOTE | 2021-07-14 09:07 | Orthopedic Consultation ---
Date of Consultation July 14, 2021 Assessment & Plan (1) Hip fracture, left: Patient will require surgical fixation of left hip fracture. Scheduled for OR today, 07/14/21, to undergo left hip intertrochantric nail long with Dr Smith -Consent obtained -NPO -Hold anticoagulants -Pain control per primary - Pain in considerable amt of pain. Recommend IV dilaudid prn, oxy 5mg and tylenol -Vitals and labs stable. Hgb 8.3, monitor after surgery -Intra-op vancomycin for infection prophylaxis, pt reports rash allergy to cefazolin -Obtain medical clearance -IV LR fluids -Void bindery production manager to OR -Clip/prep left hip intra-op -TEDS/foot pumps non-operative leg intra-op Supervising Physician Co-Signing Physician Notes I saw and examined the patient and agree with the above note. Discussed treatment options, risks/benefits of surgery, and expected outcomes. Patient elects to proceed with surgery. Informed consent signed. Surgical site was marked. Proceed to operating room today. Re-admit to floor after surgery. Patient had quite significant delirium after her previous surgeries, so will try to minimize narcotic usage post-op. History of Present Illness Reason for Consultation: Left hip fracture Attending Physician: Zaria Monique MD History of Present Illness Pt is an 85 year old female with PMH listed below who fell yesterday afternoon. She says she was reaching for her pill bottles and fell onto her left hip. X- rays and CT were done that show an impacted, comminuted, displaced intertrochanteric hip fracture. Orthopedics consulted for further evaluation. She reports that she is in a considerable amount of pain. She denies any knee pain. She does have previous knee surgery. She denies any numbness or tingling in her lower extremity. Discussed with patient that this will require surgical intervention and non-operative management would not be recommended. The patient was agreeable to this. She last ate and drank yesterday morning. She is not on any blood thinners. She denies any CP, SOB, headache, cough, N/V. Allergies Allergy/AdvReac Type Severity Reaction Status Date / Time Aimdkwg-ECC-OwJ Reductase AdvReac Intermediate MUSCLE Verified 07/13/21 18:37 Inhibitor ACHES-ELEVATED [Uxkggel-Iqe-Tdd Reductase CK WITH Inhibitor] LIPITOR PER HISTORY cefazolin [From Ancef] AdvReac Mild rash on Verified 07/13/21 18:37 abdomen Home Medications Medication Instructions Recorded Confirmed Type pantoprazole 40 mg tablet,delayed 40 mg PO BID 10/07/18 07/13/21 History release levothyroxine 125 mcg tablet 125 mcg PO DAILYBB 09/18/20 07/13/21 History atenolol 25 mg tablet 25 mg PO DAILY 01/06/21 07/13/21 History losartan 25 mg tablet 25 mg PO QAM 02/04/21 07/13/21 History melatonin 5 mg tablet 5 mg PO HS PRN 02/04/21 07/13/21 History sertraline 100 mg tablet 100 mg PO HS 02/04/21 07/13/21 History acetaminophen 500 mg tablet 1,000 mg PO Q8 PRN #30 tab 02/28/21 07/13/21 Rx (Tylenol Extra Strength) daptomycin 500 mg intravenous 400 mg IV DAILY #1 ea 02/28/21 07/13/21 Rx solution doxycycline hyclate 100 mg capsule 100 mg PO DAILY 07/13/21 07/13/21 History ferrous sulfate 325 mg (65 mg 325 mg PO BID 07/13/21 07/13/21 History iron) tablet Patient History Medical History Cerebral aneurysm "[facility] 07/22/13 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" CKD (chronic kidney disease), stage III Depression Esophagitis (12/26/10) History of papillary adenocarcinoma of thyroid HLD (hyperlipidemia) HTN (hypertension) Hypertensive heart disease Hypothyroidism MERY (obstructive sleep apnea) Panic disorder (12/26/10) Thyroid cancer Surgical History Status post appendectomy Status post thyroidectomy Family History Other Diabetes Hypertension Social History Smoking Status: Never smoker Second Hand Exposure: No; Do You Dip or Chew Tobacco: No; Hx Alcohol Use: No Hx Substance Use: No Preferred Language: Hebrew Communication Ability: Impaired 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 Pt occasionally moans in pain. Lower Extremity: Left hip is shortened and externally rotated with knee in flexed position. Right LE showing no deformity. Ice packs on left hip Pt has full ROM of ankle and all 5 digits. Pt has 5/5 strength with resisted DF/PF. No tender to palpate knee. Calf supple and non tender. NVI with sensation to light touch distally and good distal pulses present. Lower extremity noted to have good color and temperature with no signs of vascular or lymphatic insufficiency. Results & Data ([facility]) Vital Signs (Past 12 Hours) Vital Signs Temp Pulse Pulse Pulse Resp BP BP 07/14/21 07:35 36.4 C L 85 14 112/62 07/14/21 02:57 36.5 C 86 18 138/73 07/14/21 00:16 92 H 07/13/21 22:32 36.6 C 102 H 18 150/88 H 07/13/21 21:00 122 H 18 135/84 Pulse Ox 07/14/21 07:35 94 07/14/21 02:57 95 07/14/21 00:16 07/13/21 22:32 94 07/13/21 21:[address] 07/13/21 21:05 CT hip LT wo con CLINICAL HISTORY: eval fx TECHNIQUE: Multidetector row helical CT of the right knee was performed without intravenous contrast. Coronal and sagittal reformations were obtained. Automated dose lowering techniques and/or adjustment according to patient size were utilized for this examination. Comparison: Comparison is made to left hip radiograph 07/13/2021 FINDINGS: Comminuted intratrochanteric fracture of the left femoral neck. There is some overriding of fragments and apex lateral angulation. The joint spaces are maintained. Soft tissue swelling is seen in the adjacent musculature. IMPRESSION: Comminuted intratrochanteric fracture of the left femoral neck. ACT 112: Negative or not required by law. Electronically signed by: Juvencio Fiore M.D. 07/14/2021 7:50 AM (1) Hip fracture, left Encounter type: initial encounter Fracture type: closed Qualified Code(s): S72.002A - Fracture of unspecified part of neck of left femur, initial encounter for closed fracture
[2021-07-14] MEDS ORDERED: MoRPHine SULFATE 4 MG/ML 1 ML CARP\\VIAL IV STA (09:34)
[2021-07-14] MEDS ORDERED: VANCOMYCIN HCL 1,000 MG/270 ML BAG IV SCH (10:00)
[2021-07-14] MEDS ORDERED: ePHEDrine sulfate 50 MG/ML AMP IV PRN (11:44)
[2021-07-14] MEDS ORDERED: ONDANSETRON INJ 2 MG/ML 2 ML VIAL IV PRN (11:44)
[2021-07-14] MEDS ORDERED: fentaNYL citrate 100 MCG/2 ML VIAL IV PRN (11:44)
[2021-07-14] MEDS ORDERED: ATROPINE SULFATE 0.1 MG/ML 10ML SYR IV PRN (11:44)
--- NOTE | 2021-07-14 11:44 | Anesthesiology Consultation ---
Date of Service July 14, 2021 Assessment & Plan Chart Review Chart Review: Acceptable Risk for Surgery and Patient NOT seen in Pre Admission Testing Consults Requested none ASA ASA3 Proposed Anesthesia Anesthesia Type: MAC Spinal Risk / Benefits Reviewed With: PT / POA / Parent / Guardian, Accepts Plan and Informed Consent Obtained History Surgery Operation Date: 07/14/21 11:10 Proposed Procedures p Left Hip Intertrochanteric Nail Tyson Smith MD Height/Weight Height: 5 ft 4 in Weight: 68.1 kg Allergies Allergy/AdvReac Type Severity Reaction Status Date / Time Idhdekv-ALR-DfJ Reductase AdvReac Intermediate MUSCLE Verified 07/13/21 18:37 Inhibitor ACHES-ELEVATED [Lapkrfa-Rmt-Hrl Reductase CK WITH Inhibitor] LIPITOR PER HISTORY cefazolin [From Anc] AdvReac Mild rash on Verified 07/13/21 18:37 abdomen Medications Home Medications Medication Instructions Recorded Confirmed Last Taken pantoprazole 40 mg tablet,delayed 40 mg PO BID 10/07/18 07/13/21 02/03/21 release levothyroxine 125 mcg tablet 125 mcg PO DAILYBB 09/18/20 07/13/21 02/03/21 atenolol 25 mg tablet 25 mg PO DAILY 01/06/21 07/13/21 02/03/21 losartan 25 mg tablet 25 mg PO QAM 02/04/21 07/13/21 02/03/21 melatonin 5 mg tablet 5 mg PO HS PRN 02/04/21 07/13/21 Unknown sertraline 100 mg tablet 100 mg PO HS 02/04/21 07/13/21 Unknown acetaminophen 500 mg tablet 1,000 mg PO Q8 PRN #30 tab 02/28/21 07/13/21 Unknown (Tylenol Extra Strength) daptomycin 500 mg intravenous 400 mg IV DAILY #1 ea 02/28/21 07/13/21 Unknown solution doxycycline hyclate 100 mg capsule 100 mg PO DAILY 07/13/21 07/13/21 Unknown ferrous sulfate 325 mg (65 mg 325 mg PO BID 07/13/21 07/13/21 Unknown iron) tablet Active Medications Generic Name Dose Route Start Last Admin Trade Name Freq PRN Reason Stop Dose Admin Doxycycline Hyclate 100 mg 07/14/21 09:00 07/14/21 08:30 Doxycycline Hyclate 100 Mg Cap PO 08/13/21 08:59 100 mg DAILY SABA Administration Hydromorphone HCl 0.5 mg 07/13/21 22:00 07/14/21 07:55 Hydromorphone Inj 0.5 Mg/0.5 Ml Syr IV 07/27/21 21:59 0.5 mg Q4H PRN Administration Pain Dextrose/Sodium Chloride 1,000 mls @ 100 mls/hr 07/13/21 20:45 07/14/21 11:18 D5w And 1/2nss IV 08/12/21 20:44 0 mls/hr .Q10H SABA Infusion Ceftriaxone Sodium 1,000 mg/ 50 mls @ 100 mls/hr 07/13/21 20:45 07/13/21 21:32 Dextrose IV 07/23/21 20:44 Not Given Q24H SABA Protocol Vancomycin HCl 1,000 mg in 270 mls @ 242 mls/hr 07/14/21 10:00 07/14/21 11:25 Vancomycin Hcl IV 07/14/21 18:00 242 mls/hr PREOP SABA Administration Protocol Levothyroxine Sodium 125 mcg 07/14/21 06:30 07/14/21 06:02 Levothyroxine Sodium 125 Mcg Tablet PO 08/13/21 06:29 125 mcg DAILYBB SABA Administration Pantoprazole Sodium 40 mg 07/13/21 22:00 07/14/21 08:30 Pantoprazole 40 Mg Tab PO 08/12/21 21:59 40 mg BID SABA Administration Sertraline HCl 100 mg 07/13/21 22:00 07/13/21 22:58 Sertraline Hcl 100 Mg Tablet PO 08/12/21 21:59 100 mg HS SABA Administration NPO Date Last Intake of Fluids: 07/13/21 Time Last Intake of Fluids: 14:00 Last Intake of Fluids Comment: With po meds Date Last Intake of Solids: 07/13/21 Time Last Intake of Solids: 10:00 Past Medical History Medical History Cerebral aneurysm "[facility] 07/22/13 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" CKD (chronic kidney disease), stage III Depression Esophagitis (12/26/10) History of papillary adenocarcinoma of thyroid HLD (hyperlipidemia) HTN (hypertension) Hypertensive heart disease Hypothyroidism MERY (obstructive sleep apnea) Panic disorder (12/26/10) Thyroid cancer Exercise / Class Metabolic Activity II 4-5 Yardwork/Stairs/Walk up hill Past Family History Family History Other Diabetes Hypertension Past Surgical History Surgical History Status post appendectomy Status post thyroidectomy Past Anesthesia History No Hx of Anesthesia Complications and No Family Hx of Anesthesia Complications History of PONV No Hx of PONV and No Hx of Motion Sickness Social History Smoking Status: Never smoker Do You Dip or Chew Tobacco: No Hx Alcohol Use: No Hx Substance Use: No Physical Exam Vital Signs Last Vital Signs Temp 37.1 C 07/14/21 11:18 Pulse 129 H 07/14/21 11:18 Resp 20 07/14/21 11:18 BP 108/61 07/14/21 11:18 Pulse Ox 95 07/14/21 11:18 ENMT Mouth: no dentition abnormality Thyromental Distance: > or= 3.5 Finger Breadths Mallampati Class: II Neck normal visual inspection Respiratory normal respiratory effort Auscultation: lungs clear to auscultation bilaterally Cardiovascular Rate/Rhythm: regular rate and regular rhythm Psychiatric Orientation: alert Testing Laboratory Results 07/14/21 05:22 07/14/21 05:22 PT 11.2 Seconds (9.0-12.0) 07/13/21 18:30 INR 1.1 (0.9-1.1) 07/13/21 18:30 Hemoglobin A1c 6.2 % (4.5-5.6) H 07/14/21 05:22 Urine Color Dark Yellow 07/13/21 18:25 Urine Appearance Clear (Clear) 07/13/21 18:25 Urine pH 5.5 (4.5-7.5) 07/13/21 18:25 Ur Specific [place] 1.028 (1.000-1.030) 07/13/21 18:25 Urine Protein Trace (Negative) H 07/13/21 18:25 Urine Glucose (UA) Negative (Negative) 07/13/21 18:25 Urine Ketones 1+ (Negative) H 07/13/21 18:25 Urine Nitrite Negative (Negative) 07/13/21 18:25 Ur Leukocyte Esterase Negative (Negative) 07/13/21 18:25 Urine WBC (Auto) 1-5 /hpf (0-5) 07/13/21 18:25 Urine RBC (Auto) 0-4 /hpf (0-4) 07/13/21 18:25 U Hyaline Cast (Auto) 1-5 /lpf (0-5) 07/13/21 18:25 U Epithel Cells (Auto) 5-10 /lpf (0-5) H 07/13/21 18:25 Urine Bacteria (Auto) 1+ (Negative) H 07/13/21 18:25 Blood Type A Positive 07/14/21 09:28 Antibody Screen NEGATIVE 07/14/21 09:28 07/13/21 18:25 Urine Culture - Preliminary Urine,Straight Cath No growth - Less than 1,000 colonies/mL, Final report to follow. 07/14/21 07/14/21 11:35 07:31 POC Glucose 123 H 168 H
[2021-07-14] MEDS: LACTATED RINGER'S 1,000 ML IV SCH (11:49)
[2021-07-14] MEDS ORDERED: PROPOFOL IV EMULSION 10 MG/ML 20 ML VIAL IV ONE (12:16)
[2021-07-14] MEDS ORDERED: fentaNYL citrate 100 MCG/2 ML VIAL ONE (12:16)
[2021-07-14] MEDS ORDERED: ONDANSETRON INJ 2 MG/ML 2 ML VIAL ONE (12:16)
[2021-07-14] MEDS ORDERED: LIDOCAINE 2% 2 ML VIAL/AMP(20MG/ML) INFIL ONE (12:16)
[2021-07-14] MEDS ORDERED: ACETAMINOPHEN 500 MG TAB PO PRN (12:43)
[2021-07-14] MEDS ORDERED: SODIUM CHLORIDE 0.9% 1000ML 1,000 ML IV SCH (12:45)
[2021-07-14] MEDS ORDERED: ACETAMINOPHEN 1000 MG/100 ML IV IV ONE (12:46)
[2021-07-14] MEDS ORDERED: SODIUM CHLORIDE 0.9% 250 ML IV PRN ×2 (13:27→13:32)
--- NOTE | 2021-07-14 14:27 | Post Operative Brief Note ---
Immediate Post Op Note v1 Date of Surgery July 14, 2021 Pre & Post Diagnosis Operation Date: 07/14/21 11:10 Pre-Op Diagnosis: Comminuted intertrochanteric femur fracture, left Post-Op Diagnosis: Comminuted intertrochanteric femur fracture, left I identified the patient and participated in the time-out.: Yes Procedure Operation Date: 07/14/21 11:10 Actual Procedures p Open reduction, internal fixation of Left Comminuted intertrochanteric femur fracture with a long cephalomedullary Nail (Left) - Severo Smith MD Surgeon Sveero Smith MD Warehouse Production Worker Jean Paul Ordonez MD Estimated Blood Loss 100 Findings Consistent with Post-Op Diagnosis Drains Bass Catheter Anesthesia Type Spinal MAC Complications none Disposition Disposition: Recovery Room
--- NOTE | 2021-07-14 14:41 | Operative Report ---
Post Operative Report Pre & Post Diagnosis Operation Date: 07/14/21 11:10 Pre-Op Diagnosis: Hip fracture, left Post-Op Diagnosis: Hip fracture, left I identified the patient and participated in the time-out.: Yes Procedure Operation Date: 07/14/21 11:10 Actual Procedures p Left Hip Intertrochanteric Nail Long(Left) - Severo Smith MD Surgeon Chace Smith Angle Bender Jean Paul Ordonez MD Estimated Blood Loss 100 Findings Consistent with Post-Op Diagnosis Consistent with post op diagnosis Specimens No specimens Description of Procedure I participated in prepping dressing and assisted DR. Smith during the procedure. Please see Dr. Smith note. I attest to the content of the Intraoperative Record and any orders documented therein. Any exceptions are noted below. Supervising Physician Co-Signing Physician Notes Dr. Smith
[2021-07-14] MEDS ORDERED: PHENYLEPHRINE HCL 10 MG/ML VIAL ONE (14:52)
--- NOTE | 2021-07-14 15:04 | Fluoroscopy Report ---
FL hip LT 2-3V CLINICAL HISTORY: LT TROCH NAIL TECHNIQUE: 4 views were obtained with the C-arm in the OR with the above procedure. Total fluoroscopy time was 172 seconds. Total skin dose was 41.19 mGy. Comparison: None available at the time of this dictation. FINDINGS/IMPRESSION: Intraoperative images were obtained of left hip trochanteric nail placement. Please correlate with intraoperative fluoroscopy and operative report. ACT 112: Negative or not required by law. Electronically signed by: Juvencio Fiore M.D. 07/14/2021 3:02 PM
--- NOTE | 2021-07-14 15:13 | XRay Report ---
XR hip LT min 2V CLINICAL HISTORY: Post-Operative implant position. Status post internal fixation for left hip fract ure. COMPARISON STUDY: 07/13/2021 TECHNIQUE: 4 left hip views FINDINGS: The patient is status post placement of a nail within the femoral head and neck transfixing the previously identified comminuted, intertrochanteric fracture. Long stem intramedullary meghan is pr esent femoral shaft secured distally with a screw. IMPRESSION: 1. Status post internal fixation of left femoral neck fracture. ACT 112: Negative or not required by law. Electronically signed by: Benji Acevedo M.D. 07/14/2021 3:12 PM
--- NOTE | 2021-07-14 15:16 | Anesthesiology Progress Note ---
Date of Service July 14, 2021 Anesthesia Post Procedure Vital Signs Vital Signs: Temp Pulse Pulse Pulse Resp BP BP 07/14/21 14:44 37.1 C 79 18 143/64 H 07/14/21 11:18 37.1 C 129 H 20 108/61 07/14/21 11:13 140 H 07/14/21 10:45 37.4 C 87 110 H 14 112/64 07/14/21 07:35 36.4 C L 85 14 07/14/21 02:57 36.5 C 86 18 138/73 07/14/21 00:16 92 H 07/13/21 22:32 36.6 C 102 H 18 07/13/21 21:00 122 H 18 07/13/21 19:42 128 H 16 07/13/21 18:37 121 H 16 154/122 H 07/13/21 18:35 07/13/21 18:34 128 H 17 07/13/21 18:04 36.5 C 127 H 16 170/105 H BP Pulse Ox 07/14/21 14:44 95 07/14/21 11:18 95 07/14/21 11:13 07/14/21 10:45 93 07/14/21 07:35 112/62 94 07/14/21 02:57 95 07/14/21 00:16 07/13/21 22:32 150/88 H 94 07/13/21 21:00 135/84 95 07/13/21 19:42 177/95 H 90 07/13/21 18:37 94 07/13/21 18:35 96 07/13/21 18:34 96 07/13/21 18:04 95 Pain Intensity Left Hip: Pain Intensity: 8 Transfer of Care Handoff Completed per policy Notes Mental Status: alert / awake / arousable and participated in evaluation Patient Amnestic to Procedure: Yes Nausea / Vomiting: adequately controlled Pain: adequately controlled Airway Patency, RR, SpO2: stable & adequate BP & HR: stable & adequate Hydration State: stable & adequate Neuraxial Anesthesia: was administered and sensory block is resolving Anesthetic Complications: no major complications apparent
[2021-07-14] MEDS: DAPTOmycin 325 MG in SYRINGE 0 ML IV SCH (15:46)
--- NOTE | 2021-07-14 16:13 | Hospitalist Progress Note ---
Date of Service July 14, 2021 Assessment & Plan (1) Hip fracture, left: Plan: Mechanical fall with left hip fracture Status post left hip intertrochanteric nail placement Appreciate Ortho input and recommendation Management will be as per Ortho (2) Left leg pain: Plan: Secondary and management as above (3) Status post fall: Plan: Mechanical fall History of ambulatory dysfunction (4) UTI (urinary tract infection): Plan: UA suggestive of infection Has been getting intravenous ceftriaxone Await urine culture (5) Esophagitis: Plan: Continue PPI (6) Hypothyroidism: Plan: Continue supplement (7) Hypertensive heart disease: Plan: Blood pressure remains on the lower side Losartan is on hold History of panic disorder and depression Continue sertraline Sleep apnea Uses oxygen at bedtime DVT prophylaxis SCDs for now CODE STATUS Full Admission and Anticipated Discharge Date Admission Date: July 13, 2021 Subjective 07/14/2021 The patient was seen and examined in medical floor She is status post left hip intertrochanteric nail placement Remains confused secondary to anesthetics and the surgery itself Review of Systems Review of Systems: Unobtainable due to cognitive status Physical Exam Physical Exam: Lying in bed with some distress Constitutional: well developed, well nourished, + ill appearing and + obese Eyes: PERRL, conjunctivae normal, anicteric sclerae ENMT: external ear and nose normal, oropharynx normal Neck: trachea midline, no thyromegaly Respiratory: no respiratory distress Auscultation: + diminished lung sounds; no crackles Cardiovascular: Rate/Rhythm: regular rate and regular rhythm; not tachycardic Heart Sounds: normal S1 and normal S2; no murmur Extremities: no edema Gastrointestinal (Abdomen): Inspection/Auscultation: abdomen not distended Percussion/Palpation: abdomen soft; abdomen nontender Musculoskeletal: Status post left hip intertrochanteric nail placement Neurologic: Alert and awake, drowsy secondary to medications and the surgery itself Results & Data Results & Data ([facility]) Vital Signs (Past 12 Hours) Vital Signs Temp Pulse Pulse Pulse Resp BP BP 07/14/21 15:40 36.8 C 80 16 120/65 07/14/21 15:20 36.9 C 71 16 108/61 07/14/21 15:10 74 16 141/62 H 07/14/21 15:00 69 18 122/61 07/14/21 14:50 37.1 C 72 18 118/78 07/14/21 14:44 37.1 C 79 18 143/64 H 07/14/21 11:18 37.1 C 129 H 20 108/61 07/14/21 11:13 140 H 07/14/21 10:45 37.4 C 87 110 H 14 112/64 07/14/21 07:35 36.4 C L 85 14 112/62 Pulse Ox 07/14/21 15:40 90 07/14/21 15:20 94 07/14/21 15:10 95 07/14/21 15:00 95 07/14/21 14:50 95 07/14/21 14:44 95 07/14/21 11:18 95 07/14/21 11:13 07/14/21 10:45 93 07/14/21 07:35 94 Laboratory Results Short CBC 07/13/21 07/14/21 Range/Units 18:30 05:22 WBC 17.66 H 9.35 (4.8-10.8) K/uL Hgb 10.5 L 8.3 L (12.0-16.0) g/dL Hct 33.2 L 25.6 L (37-47) % Plt Count 319 269 (130-400) K/uL BMP 07/13/21 07/14/21 18:30 05:22 Sodium 139 138 Potassium 4.0 4.3 Chloride 109 H 110 H Carbon Dioxide 20 L 24 BUN 30 H 30 H Creatinine 0.87 0.79 Glucose 161 H 165 H Calcium 9.9 9.1 Liver Function 07/13/21 Range/Units 18:30 Total Bilirubin 0.3 (0.2-1.0) mg/dl AST 18 (13-39) U/L ALT 16 (7-52) U/L Alkaline Phosphatase 83 (34-104) U/L Albumin 3.9 (3.4-5.0) gm/dl Urine 07/13/21 Range/Units 18:25 Urine Color Dark Yellow Urine Appearance Clear (Clear) Urine pH 5.5 (4.5-7.5) Ur Specific [place] 1.028 (1.000-1.030) Urine Protein Trace H (Negative) Urine Glucose (UA) Negative (Negative) Medications Administered Current Inpatient Medications Acetaminophen (Acetaminophen 500 Mg Tab) 1,000 mg PO Q6H PRN PRN Reason: Pain Stop: 08/13/21 12:42 Acetaminophen (Acetaminophen 500 Mg Tab) 1,000 mg PO Q8 PRN PRN Reason: fever or pain Stop: 08/13/21 12:44 Atenolol (Atenolol 25 Mg Tablet) 25 mg PO DAILY COUNTS INCLUDE 234 BEDS AT THE [facility] Stop: 08/14/21 08:59 Atropine Sulfate (Atropine Sulfate 0.1 Mg/Ml 10ml Syr) 0.5 mg IV Q1M PRN PRN Reason: PACU Use-HR<40 &/or Bradycardi Stop: 07/14/21 19:44 Dextrose (Dextrose 50% 50 Ml Syringe) 25 - 50 ml IV UD PRN; Protocol PRN Reason: Hypoglycemia Protocol Stop: 08/12/21 22:29 Doxycycline Hyclate (Doxycycline Hyclate 100 Mg Cap) 100 mg PO DAILY COUNTS INCLUDE 234 BEDS AT THE [facility] Stop: 08/13/21 08:59 Last Admin: 07/14/21 08:30 Dose: 100 mg Documented by: Enoxaparin Sodium (Enoxaparin Inj 40 Mg/0.4 Ml Syr) 40 mg SQ Q24H COUNTS INCLUDE 234 BEDS AT THE [facility] Stop: 08/13/21 20:59 Ephedrine Sulfate (Ephedrine Sulfate 50 Mg/Ml Amp) 5 mg IV Q5M PRN PRN Reason: PACU Use Only-SBP<90 mmHg Stop: 07/14/21 19:44 Fentanyl Citrate (Fentanyl Citrate 100 Mcg/2 Ml Vial) 25 mcg IV Q5M PRN PRN Reason: PACU Use Only-Pain Stop: 07/14/21 19:44 Last Admin: 07/14/21 15:02 Dose: 25 mcg Documented by: Ferrous Sulfate (Ferrous Sulfate 325 Mg Tab) 325 mg PO BID SABA Stop: 08/13/21 20:59 Glucagon (Glucagon For Inj 1 Mg Vial) 1 mg IM UD PRN; Protocol PRN Reason: Hypoglycemia Protocol Stop: 08/12/21 22:29 Glucose (Glucose 40% Gel 15 Gm Tube) 15 - 30 gm PO UD PRN; Protocol PRN Reason: Hypoglycemia Protocol Stop: 08/12/21 22:29 Glucose (Glucose 10 Tabs/Tube) 4 - 8 tabs PO UD PRN; Protocol PRN Reason: Hypoglycemia Protocol Stop: 08/12/21 22:29 Hydromorphone HCl (Hydromorphone Inj 0.5 Mg/0.5 Ml Syr) 0.5 mg IV Q4H PRN PRN Reason: Pain Stop: 07/27/21 21:59 Last Admin: 07/14/21 07:55 Dose: 0.5 mg Documented by: Dextrose/Sodium Chloride (D5w And 1/2nss) 1,000 mls @ 100 mls/hr IV .Q10H SABA Stop: 08/12/21 20:44 Last Infusion: 07/14/21 11:18 Dose: 0 mls/hr Documented by: Ceftriaxone Sodium 1,000 mg/ (Dextrose) 50 mls @ 100 mls/hr IV Q24H SABA; Protocol Stop: 07/23/21 20:44 Last Admin: 07/13/21 21:32 Dose: Not Given Documented by: Vancomycin HCl (Vancomycin Hcl) 1,000 mg in 270 mls @ 242 mls/hr IV PREOP SABA; Protocol Stop: 07/14/21 18:00 Last Infusion: 07/14/21 12:35 Dose: Infused Documented by: Lactated Ringer's (Lr) 1,000 mls @ 15 mls/hr IV .Q24H SABA Stop: 08/13/21 11:44 Last Admin: 07/14/21 11:49 Dose: 15 mls/hr Documented by: Sodium Chloride (Nss 1000ml) 1,000 mls @ 0 mls/hr IV .Q0M SABA Stop: 08/13/21 12:44 Daptomycin 325 mg/ Syringe 6.5 mls @ 3.25 mls/min IV Q24H SABA; Protocol Stop: 08/25/21 15:59 Last Admin: 07/14/21 15:46 Dose: 3.25 mls/min Documented by: Insulin Aspart (Insulin Aspart Per Unit) 0 units SC Q6 SABA Stop: 08/13/21 07:29 Last Admin: 07/14/21 11:45 Dose: Not Given Documented by: Levothyroxine Sodium (Levothyroxine Sodium 125 Mcg Tablet) 125 mcg PO DAILYBB SABA Stop: 08/13/21 06:29 Last Admin: 07/14/21 06:02 Dose: 125 mcg Documented by: Losartan Potassium (Losartan Potassium 25 Mg Tab) 25 mg PO QAM COUNTS INCLUDE 234 BEDS AT THE [facility] Stop: 08/14/21 08:59 Melatonin (Melatonin 3 Mg Tab) 3 mg PO HS PRN PRN Reason: Insomnia Stop: 08/12/21 22:18 Metoprolol Tartrate (Metoprolol Tartrate 1 Mg/Ml Vial) 5 mg IV Q6 PRN; Protocol PRN Reason: Hypertension Stop: 08/12/21 21:59 Miscellaneous (Carbohydrates For Hypoglycemia ) 15 - 30 gm PO UD PRN PRN Reason: Hypoglycemia Treatment Stop: 08/12/21 22:29 Miscellaneous Information (Daptomycin Consult Active) 1 ea N/A UD PRN PRN Reason: Consult Stop: 08/13/21 12:44 Nitroglycerin (Nitroglycerin Sl 0.4 Mg/Tab Tab) 0.4 mg SL UD PRN PRN Reason: Chest Pain Stop: 08/12/21 21:59 Ondansetron HCl (Ondansetron Inj 2 Mg/Ml 2 Ml Vial) 4 mg IV Q6H PRN PRN Reason: Nausea Stop: 08/12/21 21:59 Ondansetron HCl (Ondansetron Inj 2 Mg/Ml 2 Ml Vial) 4 mg IV ONCE PRN PRN Reason: PACU Use Only-Nausea/Vomiting Stop: 07/14/21 19:44 Pantoprazole Sodium (Pantoprazole 40 Mg Tab) 40 mg PO BID SABA Stop: 08/12/21 21:59 Last Admin: 07/14/21 08:30 Dose: 40 mg Documented by: Polyethylene Glycol (Polyethylene (Miralax) 17 Gm Pack) 17 gm PO DAILY PRN PRN Reason: Constipation Stop: 08/12/21 21:59 Sertraline HCl (Sertraline Hcl 100 Mg Tablet) 100 mg PO HS SABA Stop: 08/12/21 21:59 Last Admin: 07/13/21 22:58 Dose: 100 mg Documented by: Tramadol HCl (Tramadol Hcl 50 Mg Tablet) 50 mg PO Q4H PRN PRN Reason: Pain Stop: 08/13/21 12:42 (1) Hip fracture, left Encounter type: initial encounter Fracture type: closed Qualified Code(s): S72.002A - Fracture of unspecified part of neck of left femur, initial encounter for closed fracture
[2021-07-14] MEDS: INSULIN ASPART PER UNIT SC SCH ×2 (17:03→21:31)
[2021-07-14] MEDS: traMADol HCL 50 MG TABLET PO PRN (17:17)
[2021-07-14] MEDS: ONDANSETRON INJ 2 MG/ML 2 ML VIAL IV PRN (17:18)
[2021-07-14] MEDS: ACETAMINOPHEN 500 MG TAB PO PRN (19:46)
[2021-07-14] MEDS: FERROUS SULFATE 325 MG TAB PO SCH (20:46)
[2021-07-14] MEDS: ENOXAPARIN INJ 40 MG/0.4 ML SYR SQ SCH (20:46)
[2021-07-14] MEDS: cefTRIAXone SODIUM 1,000 MG in DEXTROSE 5% 50 ML IV SCH (20:46)
[2021-07-14] MEDS: SERTRALINE HCL 100 MG TABLET PO SCH (20:47)
--- NOTE | 2021-07-14 22:20 | Electrocardiogram Report ---
Test Reason : Blood Pressure : / mmHG Vent. Rate : 132 BPM Atrial Rate : 132 BPM P-R Int : 200 ms QRS Dur : 066 ms QT Int : 298 ms P-R-T Axes : 000 048 061 degrees QTc Int : 441 ms Sinus tachycardia with frequent Premature atrial complexes Otherwise normal ECG When compared with ECG of 21-FEB-2021 07:50, Vent. rate has increased BY 70 BPM Criteria for Inferior infarct are no longer Present T wave inversion no longer evident in Inferior leads T wave amplitude has increased in Anterior leads Confirmed by Silas Muller ([id number]) on 07/14/2021 10:20:01 PM Referred By: REFERRED SELF Confirmed By:Silas Muller
--- NOTE | 2021-07-14 23:16 | Operative Report (OR) ---
DATE OF SURGERY: 07/14/2021 PREOPERATIVE DIAGNOSIS: Comminuted intertrochanteric left femur fracture. POSTOPERATIVE DIAGNOSIS: Comminuted intertrochanteric left femur fracture. OPERATION PERFORMED: Open reduction internal fixation of comminuted left intertrochanteric femur fracture with an intramedullary nail. SURGEON: Severo Smith MD WEARING APPAREL PRESSER: Jean Paul Ordonez MD ESTIMATED BLOOD LOSS: 100 mL. INTRAVENOUS FLUIDS: 800 mL of lactated Ringer's and 1 unit of packed red blood cells. IMPLANTS: 1. One Synthes 11 mm diameter nail, 360 mm in length. 2. One Synthes helical blade 105 mm in length. 3. A 5 mm x 42 mm locking screw. INDICATIONS: Ms. Burnett is an 85-year-old female who fell yesterday landing onto her left hip. She was unable to ambulate and had a notable deformity. She was brought to the emergency room by ambulance where x-rays demonstrated a comminuted intertrochanteric femur fracture. The comminution involved the greater trochanter and the lesser trochanter was off as well. I had a long discussion with the patient about treatment options. Surgery was indicated to restore her ability to ambulate as well as for comfort. I had a long discussion with her about the risks and benefits of surgery, alternatives, and expected outcomes. She elected to proceed. All questions were answered. Informed consent was signed. OPERATIVE FINDINGS: Fracture was reduced and stabilized with a Synthes long titanium intramedullary cephalomedullary nail. DESCRIPTION OF OPERATION: The patient was identified in the preoperative holding area where her surgical site was marked. She was brought back to the main operating room where she was given a spinal anesthetic on the hospital bed. Once the anesthetic was in place, she was carefully moved on to the fracture table. She was slid down gently against the perineal post. The nonoperative extremity was flexed and abducted through the hip. The operative foot was padded with ABD pads and secured within the traction boot. Fluoroscopy was then brought in. Using combination of traction, internal rotation, adduction of the leg, we were able to achieve a reasonable reduction. As stated above, there was some comminution of the greater trochanter, which continued to sit slightly posteriorly on the lateral view. We also had some flexion of the proximal fragment. We elected to address this once we had opened her up after we were unable to get this totally reduced closed. Next, we made an 8 cm long incision starting about 2 cm above the greater trochanter and extending proximally. The fascia was split in line with the incision. The starting K-wire was then placed on the tip of the trochanter optimizing its position on the AP and lateral fluoroscopic views. The guidewire was then advanced down into the intramedullary canal. The awl was then used to open up the proximal femur. The awl was left in place while we switched out the K-wire for a ball-tipped guidewire that was advanced all the way down to the knee. We took our measurement and it came to a 360 mm nail. This was a left- sided nail and was opened up on the back table. Next, the nail was slid down over the guidewire. We optimized the position of the nail on the AP fluoroscopic view. On the lateral view, the proximal fragment was still flexed relative to the distal fragment. Therefore, we carefully slide a Hohmann retractor over the anterior aspect of the proximal fragment and used this to lever the proximal fragment out of flexion into a more anatomic position. Once this was complete, we drilled our guidewire up into the center-center position of the femoral head under fluoroscopic guidance. We took our measurement at 112 mm, so I elected to use a 105 mm helical blade. The lateral femoral cortex was opened with the drill, then the helical blade was then advanced over the guidewire up into the femoral head. Once the helical blade was in proper position, we then used the blade to compress the fracture. I was very happy with our cortical contact and our reduction. The blade was then locked from above with the [employer] screwdriver. We then removed the insertion device for the helical blade as well as the nail. We then placed a single cross locking screw from lateral to medial using perfect circles technique. This measured at 38 mm, so we elected to use a 42 mm length screw to ensure bicortical purchase. Once the distal cross locking screw was then placed, our final fluoroscopic images were obtained. The wounds were irrigated out with copious amounts of normal saline. The fascia was closed with 0 Vicryl sutures. Deep dermal layer was closed with 2-0 Vicryl sutures. The skin was closed with tito. Sterile dressings were applied. Of note, the patient did receive a liter of packed red blood cells because her preoperative hemoglobin was 8.3. The patient was then transferred on to the hospital bed. Her sedation was lifted and she was transferred to the recovery room in stable condition. POSTOPERATIVE COURSE: The patient will be readmitted to the floor under the internal medicine service. She will be weightbearing as tolerated with maximal assist. She will be on Lovenox for DVT prophylaxis. Job ID: [id number] MTDD
[2021-07-14] MEDS ORDERED: METOPROLOL TARTRATE 1 MG/ML VIAL IV STA (23:20)
[2021-07-14] MEDS ORDERED: MAGNESIUM SULFATE / D5W 1 GM/100 ML BAG IV ONE (23:45)
[2021-07-15] MEDS: ONDANSETRON INJ 2 MG/ML 2 ML VIAL IV PRN (01:08)
[2021-07-15] MEDS: HYDROmorphone INJ 0.5 MG/0.5 ML SYR IV PRN (01:22)
[2021-07-15] MEDS ORDERED: Nursing to Pharmacy Communication SCH (02:00)
[2021-07-15 05:36] LABS: Basophils # (auto) 0.03 K/uL (0-0.2); Basophils % (auto) 0.4 %; Eosinophils # (auto) 0.05 K/uL (0-0.5); Eosinophils % (auto) 0.7 %; Hemoglobin 7.7 g/dL (12.0-16.0); Immature Granulocytes # (auto) 0.01 K/uL (0.00-0.02); Immature Granulocytes % (auto) 0.1 %; Lymphocytes % (auto) 16.4 %; Mean Corpuscular Hemoglobin 28.4 pg (25-34); Mean Corpuscular Hgb Conc 32.1 g/dL (32-36); Mean Corpuscular Volume 88.6 fL (80-100); Mean Platelet Volume 8.9 fL (7.4-10.4); Monocytes # (auto) 0.81 K/uL (0.11-0.59); Monocytes % (auto) 12.1 %; Neutrophils # (auto) 4.72 K/uL (1.4-6.5); Neutrophils % (auto) 70.3 %; Platelet Count 176 K/uL (130-400); RDW Coefficient of Variation 15.2 % (11.5-14.5); RDW Standard Deviation 49.6 fL (36.4-46.3); Red Blood Count 2.71 M/uL (4.2-5.4); White Blood Count 6.72 K/uL (4.8-10.8)
[2021-07-15] MEDS: LEVOTHYROXINE SODIUM 125 MCG TABLET PO SCH (05:55)
[2021-07-15] MEDS: traMADol HCL 50 MG TABLET PO PRN ×2 (05:55→10:45)
[2021-07-15 06:02] LABS: RBC Morphology Unremarkable
[2021-07-15 06:03] LABS: BUN Creatinine Ratio 38.3 (10-20); Calcium 8.6 mg/dl (8.5-10.1); Creatinine Clr Calc Pharmacy 49.9 ml/min; Est GFR (African American) 77.8 ml/min; Est GFR (Non-African American) 67.2 ml/min; Magnesium 1.7 mg/dl (1.7-2.4); Potassium 3.7 mmol/L (3.5-5.1)
[2021-07-15] MEDS ORDERED: DAPTOmycin 500 MG VIAL IV SCH (09:00)
[2021-07-15] MEDS: ATENOLOL 25 MG TABLET PO SCH (09:13)
[2021-07-15] MEDS: FERROUS SULFATE 325 MG TAB PO SCH ×2 (09:13→21:05)
[2021-07-15] MEDS: LOSARTAN POTASSIUM 25 MG TAB PO SCH (09:13)
[2021-07-15] MEDS: DOXYCYCLINE HYCLATE 100 MG CAP PO SCH (09:14)
[2021-07-15] MEDS: PANTOprazole 40 MG TAB PO SCH ×2 (09:14→21:05)
[2021-07-15] MEDS: INSULIN ASPART PER UNIT SC SCH ×4 (09:26→20:20)
--- NOTE | 2021-07-15 10:01 | Hospitalist Progress Note ---
Date of Service July 15, 2021 Assessment & Plan (1) Hip fracture, left: Plan: Mechanical fall with left hip fracture Status post left hip intertrochanteric nail placement on 07/14/2021 Appreciate Ortho input and recommendation Management will be as per Ortho Has been requiring more pain medications to control pain Acute blood loss anemia on anemia of chronic disease Hemoglobin before surgery was 10.5 and went down to 7.7 as of 07/15/2021 We will monitor CBC and transfuse if hemoglobin drops below 7 Acute metabolic encephalopathy Multifactorial-recent surgery, UTI, pain medications and anesthetic agents are likely agents to blame We will observe while in the hospital and likely to resolve Prior wound infection following surgery Required intravenous daptomycin for a long time and was on doxycycline Intravenous daptomycin has been started by orthopedic surgeon and will be continued for some time (2) Left leg pain: Plan: Secondary and management as above (3) Status post fall: Plan: Mechanical fall History of ambulatory dysfunction (4) UTI (urinary tract infection): Plan: UA suggestive of infection Has been getting intravenous ceftriaxone Await urine culture-urine culture has been negative Will discontinue ceftriaxone (5) Esophagitis: Plan: Continue PPI (6) Hypothyroidism: Plan: Continue supplement (7) Hypertensive heart disease: Plan: Blood pressure remains on the lower side Losartan is on hold History of panic disorder and depression Continue sertraline Sleep apnea Uses oxygen at bedtime DVT prophylaxis Has been on Lovenox CODE STATUS Full Admission and Anticipated Discharge Date Admission Date: July 13, 2021 Subjective 07/14/2021 The patient was seen and examined in medical floor She is status post left hip intertrochanteric nail placement Remains confused secondary to anesthetics and the surgery itself 07/15/2021 The patient was seen and examined in medical floor She complains severe pain in the left hip status post surgery POD #1 She has been confused Denies any chest pain, palpitation or shortness of breath Review of Systems Review of Systems: All systems reviewed and are unremarkable except as noted below Neurologic: Remains pleasantly confused. All limbs equally Physical Exam Physical Exam: Lying in bed with severe pain the left hip joint Constitutional: well developed, well nourished, + ill appearing, + obese and + altered mental status Eyes: PERRL, conjunctivae normal, anicteric sclerae ENMT: external ear and nose normal, oropharynx normal Neck: trachea midline, no thyromegaly Respiratory: no respiratory distress Auscultation: + diminished lung sounds; no crackles Cardiovascular: Rate/Rhythm: regular rate and regular rhythm; not tachycardic Heart Sounds: normal S1 and normal S2; no murmur Extremities: no edema Gastrointestinal (Abdomen): Inspection/Auscultation: abdomen not distended Percussion/Palpation: abdomen soft; abdomen nontender Musculoskeletal: Left lower extremity is examined but not moved due to severe pain involving the left hip Neurologic: Alert and awake. Pleasantly confused. Moves all extremities Results & Data Results & Data ([facility]) Vital Signs (Past 12 Hours) Vital Signs Temp Pulse Pulse Pulse Resp BP BP 07/15/21 07:32 36.5 C 91 H 20 102/56 L 07/15/21 07:31 92 H 07/15/21 04:03 36.7 C 102 H 20 106/64 07/15/21 01:12 96 H 104/57 L 07/15/21 00:56 126 H 07/14/21 23:48 118 H 104/59 L 07/14/21 23:18 36.6 C 128 H 18 102/61 Pulse Ox 07/15/21 07:32 91 07/15/21 07:31 07/15/21 04:03 90 07/15/21 01:12 07/15/21 00:56 07/14/21 23:48 07/14/21 23:18 91 Laboratory Results Short CBC 07/15/21 Range/Units 05:15 WBC 6.72 (4.8-10.8) K/uL Hgb 7.7 L (12.0-16.0) g/dL Hct 24.0 L (37-47) % Plt Count 176 (130-400) K/uL BMP 07/15/21 05:15 Sodium 134 L Potassium 3.7 Chloride 108 H Carbon Dioxide 21 BUN 31 H Creatinine 0.81 Glucose 137 H Calcium 8.6 Medications Administered Current Inpatient Medications Acetaminophen (Acetaminophen 500 Mg Tab) 1,000 mg PO Q8 PRN PRN Reason: fever or pain Stop: 08/13/21 12:44 Last Admin: 07/14/21 19:46 Dose: 1,000 mg Documented by: Atenolol (Atenolol 25 Mg Tablet) 25 mg PO DAILY SABA Stop: 08/14/21 08:59 Last Admin: 07/15/21 09:13 Dose: 25 mg Documented by: Dextrose (Dextrose 50% 50 Ml Syringe) 25 - 50 ml IV UD PRN; Protocol PRN Reason: Hypoglycemia Protocol Stop: 08/12/21 22:29 Doxycycline Hyclate (Doxycycline Hyclate 100 Mg Cap) 100 mg PO DAILY SABA Stop: 08/13/21 08:59 Last Admin: 07/15/21 09:14 Dose: 100 mg Documented by: Enoxaparin Sodium (Enoxaparin Inj 40 Mg/0.4 Ml Syr) 40 mg SQ Q24H [facility]ABA Stop: 08/13/21 20:59 Last Admin: 07/14/21 20:46 Dose: 40 mg Documented by: Ferrous Sulfate (Ferrous Sulfate 325 Mg Tab) 325 mg PO BID SABA Stop: 08/13/21 20:59 Last Admin: 07/15/21 09:13 Dose: 325 mg Documented by: Glucagon (Glucagon For Inj 1 Mg Vial) 1 mg IM UD PRN; Protocol PRN Reason: Hypoglycemia Protocol Stop: 08/12/21 22:29 Glucose (Glucose 40% Gel 15 Gm Tube) 15 - 30 gm PO UD PRN; Protocol PRN Reason: Hypoglycemia Protocol Stop: 08/12/21 22:29 Glucose (Glucose 10 Tabs/Tube) 4 - 8 tabs PO UD PRN; Protocol PRN Reason: Hypoglycemia Protocol Stop: 08/12/21 22:29 Hydromorphone HCl (Hydromorphone Inj 0.5 Mg/0.5 Ml Syr) 0.5 mg IV Q4H PRN PRN Reason: Pain Stop: 07/27/21 21:59 Last Admin: 07/15/21 01:22 Dose: 0.5 mg Documented by: Dextrose/Sodium Chloride (D5w And 1/2nss) 1,000 mls @ 100 mls/hr IV .Q10H SABA Stop: 08/12/21 20:44 Last Admin: 07/15/21 10:21 Dose: 100 mls/hr Documented by: Ceftriaxone Sodium 1,000 mg/ (Dextrose) 50 mls @ 100 mls/hr IV Q24H SABA; Protocol Stop: 07/23/21 20:44 Last Infusion: 07/14/21 21:31 Dose: Infused Documented by: Lactated Ringer's (Lr) 1,000 mls @ 15 mls/hr IV .Q24H [facility] Stop: 08/13/21 11:44 Last Infusion: 07/14/21 23:36 Dose: 0 mls/hr Documented by: Sodium Chloride (Nss 1000ml) 1,000 mls @ 0 mls/hr IV .Q0M [facility] Stop: 08/13/21 12:44 Daptomycin 325 mg/ Syringe 6.5 mls @ 3.25 mls/min IV Q24H [facility]; Protocol Stop: 08/25/21 15:59 Last Admin: 07/14/21 15:46 Dose: 3.25 mls/min Documented by: Insulin Aspart (Insulin Aspart Per Unit) 0 units SC ACHS [facility] Stop: 08/13/21 16:44 Last Admin: 07/15/21 09:26 Dose: Not Given Documented by: Levothyroxine Sodium (Levothyroxine Sodium 125 Mcg Tablet) 125 mcg PO DAILYBB [facility] Stop: 08/13/21 06:29 Last Admin: 07/15/21 05:55 Dose: 125 mcg Documented by: Losartan Potassium (Losartan Potassium 25 Mg Tab) 25 mg PO QAM [facility] Stop: 08/14/21 08:59 Last Admin: 07/15/21 09:13 Dose: 25 mg Documented by: Melatonin (Melatonin 3 Mg Tab) 3 mg PO HS PRN PRN Reason: Insomnia Stop: 08/12/21 22:18 Metoprolol Tartrate (Metoprolol Tartrate 1 Mg/Ml Vial) 5 mg IV Q6 PRN; Protocol PRN Reason: Hypertension Stop: 08/12/21 21:59 Miscellaneous (Carbohydrates For Hypoglycemia ) 15 - 30 gm PO UD PRN PRN Reason: Hypoglycemia Treatment Stop: 08/12/21 22:29 Miscellaneous Information (Daptomycin Consult Active) 1 ea N/A UD PRN PRN Reason: Consult Stop: 08/13/21 12:44 Morphine Sulfate (Morphine Sulfate 4 Mg/Ml 1 Ml Carp\Vial) 4 mg IV Q4H PRN PRN Reason: Pain Stop: 07/29/21 11:02 Nitroglycerin (Nitroglycerin Sl 0.4 Mg/Tab Tab) 0.4 mg SL UD PRN PRN Reason: Chest Pain Stop: 08/12/21 21:59 Ondansetron HCl (Ondansetron Inj 2 Mg/Ml 2 Ml Vial) 4 mg IV Q6H PRN PRN Reason: Nausea Stop: 08/12/21 21:59 Last Admin: 07/15/21 01:08 Dose: 4 mg Documented by: Pantoprazole Sodium (Pantoprazole 40 Mg Tab) 40 mg PO BID SABA Stop: 08/12/21 21:59 Last Admin: 07/15/21 09:14 Dose: 40 mg Documented by: Polyethylene Glycol (Polyethylene (Miralax) 17 Gm Pack) 17 gm PO DAILY PRN PRN Reason: Constipation Stop: 08/12/21 21:59 Sertraline HCl (Sertraline Hcl 100 Mg Tablet) 100 mg PO HS [facility] Stop: 08/12/21 21:59 Last Admin: 07/14/21 20:47 Dose: 100 mg Documented by: Tramadol HCl (Tramadol Hcl 50 Mg Tablet) 50 mg PO Q4H PRN PRN Reason: Pain Stop: 08/13/21 12:42 Last Admin: 07/15/21 10:45 Dose: 50 mg Documented by: (1) Hip fracture, left Encounter type: initial encounter Fracture type: closed Qualified Code(s): S72.002A - Fracture of unspecified part of neck of left femur, initial encounter for closed fracture
--- NOTE | 2021-07-15 10:09 | Orthopedic Progress Note ---
Date of Service July 15, 2021 Assessment & Plan (1) Status post-operative repair of hip fracture: Plan: PT/OT Pain control with p.o. medication and she will excepted DVT prophylaxis With Lovenox, DOMENICA stockings and SCDs Ice with easy wrap Keep dressings intact Talked with nursing about contacting the patient's son in hopes that she would start taking the medications she was able to talk with him. Case management evaluation Continue care per medicine service We will continue to follow while patient is in house. Admission and Anticipated Discharge Date Admission Date: July 13, 2021 Subjective This 85-year-old female is seen today. She is day 1 status post left femoral neck fracture fixation with troch nail. Patient is not doing very well today. She states she is in a tremendous amount of pain but will not take any pain medication offered because she does not "trust anyone here." She states that she is not able to move her leg but would not answer any other questions that were asked. Review of Systems Review of Systems: All systems reviewed & are unremarkable except as noted in Subjective Physical Exam Physical Exam: Left lower Extremity examination was very limited. Patient was able to actively move her toes and dorsi and plantarflex her foot. However, she screams in agony when I attempted to move her foot or attempted any movement of her knee. Her surgical incision sites were covered with sterile gauze and Tegaderms. The dressings were clean dry and intact and not removed. Results & Data ([facility]) Vital Signs (Past 12 Hours) Vital Signs Temp Pulse Pulse Pulse Resp BP BP 07/15/21 07:32 36.5 C 91 H 20 102/56 L 07/15/21 07:31 92 H 07/15/21 04:03 36.7 C 102 H 20 106/64 07/15/21 01:12 96 H 104/57 L 07/15/21 00:56 126 H 07/14/21 23:48 118 H 104/59 L 07/14/21 23:18 36.6 C 128 H 18 102/61 Pulse Ox 07/15/21 07:32 91 07/15/21 07:31 07/15/21 04:03 90 07/15/21 01:12 07/15/21 00:56 07/14/21 23:48 07/14/21 23:18 91 Diagnostic Findings Laboratory Results WBC 6.72 K/uL (4.8-10.8) 07/15/21 05:15 RBC 2.71 M/uL (4.2-5.4) L 07/15/21 05:15 Hgb 7.7 g/dL (12.0-16.0) L 07/15/21 05:15 Hct 24.0 % (37-47) L 07/15/21 05:15 MCV 88.6 fL (80-100) 07/15/21 05:15 MCH 28.4 pg (25-34) 07/15/21 05:15 MCHC 32.1 g/dL (32-36) 07/15/21 05:15 RDW Std Deviation 49.6 fL (36.4-46.3) H 07/15/21 05:15 RDW Coeff of Brandan 15.2 % (11.5-14.5) H 07/15/21 05:15 Plt Count 176 K/uL (130-400) 07/15/21 05:15 MPV 8.9 fL (7.4-10.4) 07/15/21 05:15 Immature Gran % (Auto) 0.1 % 07/15/21 05:15 Neut % (Auto) 70.3 % 07/15/21 05:15 Lymph % (Auto) 16.4 % 07/15/21 05:15 Seward % (Auto) 12.1 % 07/15/21 05:15 Eos % (Auto) 0.7 % 07/15/21 05:15 Baso % (Auto) 0.4 % 07/15/21 05:15 Neut # (Auto) 4.72 K/uL (1.4-6.5) 07/15/21 05:15 Lymph # (Auto) 1.10 K/uL (1.2-3.4) L 07/15/21 05:15 Seward # (Auto) 0.81 K/uL (0.11-0.59) H 07/15/21 05:15 Eos # (Auto) 0.05 K/uL (0-0.5) 07/15/21 05:15 Baso # (Auto) 0.03 K/uL (0-0.2) 07/15/21 05:15 Immature Gran # (Auto) 0.01 K/uL (0.00-0.02) 07/15/21 05:15 RBC Morphology Unremarkable 07/15/21 05:15 PT 11.2 Seconds (9.0-12.0) 07/13/21 18:30 INR 1.1 (0.9-1.1) 07/13/21 18:30 Sodium 134 mmol/L (136-145) L 07/15/21 05:15 Potassium 3.7 mmol/L (3.5-5.1) 07/15/21 05:15 Chloride 108 mmol/L (98-107) H 07/15/21 05:15 Carbon Dioxide 21 mmol/L (21-32) 07/15/21 05:15 Anion Gap 5 (3-11) 07/15/21 05:15 BUN 31 mg/dl (6-23) H 07/15/21 05:15 Creatinine 0.81 mg/dl (0.6-1.2) 07/15/21 05:15 Est Cr Clr Drug Dosing 49.9 ml/min 07/15/21 05:15 Est GFR ( Amer) 77.8 ml/min 07/15/21 05:15 Est GFR (Non-Af Amer) 67.2 ml/min 07/15/21 05:15 BUN/Creatinine Ratio 38.3 (10-20) H 07/15/21 05:15 Glucose 137 mg/dl (70-99(Fasting)) H 07/15/21 05:15 POC Glucose 129 mg/dl (70-99) H 07/15/21 07:46 Estimat Average Glucose 131 mg/dl 07/14/21 05:22 Hemoglobin A1c 6.2 % (4.5-5.6) H 07/14/21 05:22 Calcium 8.6 mg/dl (8.5-10.1) 07/15/21 05:15 Magnesium 1.7 mg/dl (1.7-2.4) 07/15/21 05:15 Total Bilirubin 0.3 mg/dl (0.2-1.0) 07/13/21 18:30 AST 18 U/L (13-39) 07/13/21 18:30 ALT 16 U/L (7-52) 07/13/21 18:30 Alkaline Phosphatase 83 U/L (34-104) 07/13/21 18:30 Total Protein 6.4 gm/dl (6.0-8.3) 07/13/21 18:30 Albumin 3.9 gm/dl (3.4-5.0) 07/13/21 18:30 Globulin 2.5 gm/dl (2.5-4.0) 07/13/21 18:30 Albumin/Globulin Ratio 1.6 (0.9-2) 07/13/21 18:30 25-OH Vitamin D Total 17.7 ng/ml (30-100) L 07/15/21 05:15 Urine Color Dark Yellow 07/13/21 18:25 Urine Appearance Clear (Clear) 07/13/21 18:25 Urine pH 5.5 (4.5-7.5) 07/13/21 18:25 Ur Specific Entriken 1.028 (1.000-1.030) 07/13/21 18:25 Urine Protein Trace (Negative) H 07/13/21 18:25 Urine Glucose (UA) Negative (Negative) 07/13/21 18:25 Urine Ketones 1+ (Negative) H 07/13/21 18:25 Urine Blood Negative (Negative) 07/13/21 18:25 Urine Nitrite Negative (Negative) 07/13/21 18:25 Urine Bilirubin Negative (Negative) 07/13/21 18:25 Urine Urobilinogen Negative (Negative) 07/13/21 18:25 Ur Leukocyte Esterase Negative (Negative) 07/13/21 18:25 Urine WBC (Auto) 1-5 /hpf (0-5) 07/13/21 18:25 Urine RBC (Auto) 0-4 /hpf (0-4) 07/13/21 18:25 U Hyaline Cast (Auto) 1-5 /lpf (0-5) 07/13/21 18:25 U Epithel Cells (Auto) 5-10 /lpf (0-5) H 07/13/21 18:25 Urine Bacteria (Auto) 1+ (Negative) H 07/13/21 18:25 Urine Mucus Present (None Prsent) A 07/13/21 18:25 SARS-CoV-2, RNA, NAAT NEGATIVE (NEGATIVE) 07/13/21 19:45 Blood Type A Positive 07/14/21 09:28 Antibody Screen NEGATIVE 07/14/21 09:28 Crossmatch See Detail 07/14/21 09:28 Impressions Chest X-Ray 07/13/21 18:09 XR chest 1V portable CLINICAL HISTORY: fall. Evaluate cardiopulmonary status COMPARISON STUDY: 02/11/2021 TECHNIQUE: 1 view of the chest FINDINGS: Single frontal view of the chest demonstrates the heart to again be enlarged. The aorta is atherosclerotic and ectatic. The lungs are clear of alveolar opacities. There is no evidence for pleural effusion. There is no evidence for vascular congestion. There is no acute osseous pathology. There are marked degenerative changes of the right shoulder. IMPRESSION: 1. No acute cardiopulmonary disease. ACT 112: Negative or not required by law. Electronically signed by: Benji Acevedo M.D. 07/13/2021 7:06 PM Hip/Pelvis X-Ray 07/13/21 18:09 XR hip LT 2V w pelvis CLINICAL HISTORY: L hip pain s/p fall. COMPARISON STUDY: 01/27/2021 TECHNIQUE: AP pelvis and 2 left hip views FINDINGS: Bones: There has been interval development of a comminuted, intratrochanteric fracture of the left femoral neck. Displacement of fracture fragments is present. 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 No other fractures are identified. There is no lytic or blastic lesion. Joints: The femoral head maintains its anatomic position within the acetabulum. There is marked joint space narrowing. Narrowing of the right hip joint space is also present. The remaining bones are in anatomic alignment. Soft tissues: There is no focal soft tissue abnormality. There is no radiopaque foreign body. IMPRESSION: 1. Comminuted, intratrochanteric fracture of the left femoral neck displacement of fracture fragments and coxa varus deformity. ACT 112: Negative or not required by law. Electronically signed by: Benji Acevedo M.D. 07/13/2021 7:[address] 07/13/21 18:10 CT head/brain wo con CLINICAL HISTORY: Status post fall with trauma to the head. Pain. COMPARISON STUDY: 12/27/2020 CT DOSE: 1074.96 mGy.cm TECHNIQUE: Standard CT of the Brain was performed without IV contrast. A dose lowering technique was utilized adhering to the principles of ALARA. FINDINGS: Extraaxial space: There is no evidence for subdural hematoma. There are no extra-axial fluid collections. Ventricles and cisterns: The ventricles are mildly dilated bilaterally. There is no evidence for midline shift or mass effect. Parenchyma: There is no subarachnoid or intraparenchymal hemorrhage. There is a stable hyperdense focus within the right frontal lobe, again most likely representing a calcification. There is no evidence for an acute infarct or cerebral edema. There is mild cerebral cortical atrophy and decreased attenuation in the periventricular white matter representing remote small vessel disease. There are no gross mass lesions. Osseous structures: There is no evidence for an acute fracture. The visualized paranasal sinuses are clear. The mastoid air cells are clear bilaterally. Soft tissues: There is no evidence for focal soft tissue swelling. IMPRESSION: 1. No acute intracerebral pathology. 2. Cerebral cortical atrophy and remote small vessel disease. 3. Stable 7 mm hyperdensity within the right frontal lobe, most likely representing dystrophic calcification. ACT 112: Negative or not required by law. Electronically signed by: Benji Acevedo M.D. 07/13/2021 7:[address] 07/13/21 21:05 CT hip LT wo con CLINICAL HISTORY: eval fx TECHNIQUE: Multidetector row helical CT of the right knee was performed without intravenous contrast. Coronal and sagittal reformations were obtained. Automated dose lowering techniques and/or adjustment according to patient size were utilized for this examination. Comparison: Comparison is made to left hip radiograph 07/13/2021 FINDINGS: Comminuted intratrochanteric fracture of the left femoral neck. There is some overriding of fragments and apex lateral angulation. The joint spaces are maintained. Soft tissue swelling is seen in the adjacent musculature. IMPRESSION: Comminuted intratrochanteric fracture of the left femoral neck. ACT 112: Negative or not required by law. Electronically signed by: Juvencio Fiore M.D. 07/14/2021 7:50 AM Hip X-Ray 07/14/21 12:39 XR hip LT min 2V CLINICAL HISTORY: Post-Operative implant position. Status post internal fixation for left hip fracture. COMPARISON STUDY: 07/13/2021 TECHNIQUE: 4 left hip views FINDINGS: The patient is status post placement of a nail within the femoral head and neck transfixing the previously identified comminuted, intertrochanteric fracture. Long stem intramedullary meghan is present femoral shaft secured distally with a screw. IMPRESSION: 1. Status post internal fixation of left femoral neck fracture. ACT 112: Negative or not required by law. Electronically signed by: Benji Acevedo M.D. 07/14/2021 3:12 PM
[2021-07-15] MEDS: D5W AND 1/2NSS 1,000 ML IV SCH ×2 (10:21→20:25)
[2021-07-15] MEDS: MoRPHine SULFATE 4 MG/ML 1 ML CARP\\VIAL IV PRN ×2 (12:07→22:48)
[2021-07-15] MEDS: LACTATED RINGER'S 1,000 ML IV SCH (12:44)
[2021-07-15] MEDS ORDERED: METOPROLOL TARTRATE 1 MG/ML VIAL IV STA (13:23)
[2021-07-15] MEDS: DAPTOmycin 325 MG in SYRINGE 0 ML IV SCH (17:28)
[2021-07-15] MEDS: ENOXAPARIN INJ 40 MG/0.4 ML SYR SQ SCH (21:04)
[2021-07-15] MEDS: SERTRALINE HCL 100 MG TABLET PO SCH (21:05)
[2021-07-16] MEDS: LEVOTHYROXINE SODIUM 125 MCG TABLET PO SCH (06:17)
[2021-07-16] MEDS: D5W AND 1/2NSS 1,000 ML IV SCH ×2 (06:27→17:43)
[2021-07-16] MEDS: HYDROmorphone INJ 0.5 MG/0.5 ML SYR IV PRN ×3 (06:32→17:42)
[2021-07-16 08:26] LABS: Albumin Globulin Ratio 1.2 (0.9-2); Albumin Level 2.7 gm/dl (3.4-5.0); BUN Creatinine Ratio 33.3 (10-20); Bilirubin,Total 0.5 mg/dl (0.2-1.0); Calcium 7.8 mg/dl (8.5-10.1); Creatinine Clr Calc Pharmacy 60.3 ml/min; Est GFR (African American) 93.3 ml/min; Est GFR (Non-African American) 80.5 ml/min; Globulin 2.3 gm/dl (2.5-4.0); Potassium 3.4 mmol/L (3.5-5.1)
[2021-07-16] MEDS ORDERED: POTASSIUM CHLORIDE CRTAB 20 MEQ TABCR PO STA (08:54)
[2021-07-16] MEDS: INSULIN ASPART PER UNIT SC SCH ×4 (09:02→21:35)
[2021-07-16] MEDS: POTASSIUM CHLORIDE / WTR 10 MEQ/100 ML PLCT IV SCH ×4 (09:58→17:43)
[2021-07-16 10:30] LABS: Hematocrit (blood only) 21.3 % (37-47); Hemoglobin 6.9 g/dL (12.0-16.0)
[2021-07-16] MEDS: ATENOLOL 25 MG TABLET PO SCH (10:47)
[2021-07-16] MEDS: POLYETHYLENE (MIRALAX) 17 GM PACK PO PRN (10:47)
[2021-07-16] MEDS: PANTOprazole 40 MG TAB PO SCH ×2 (10:47→22:04)
[2021-07-16] MEDS: LOSARTAN POTASSIUM 25 MG TAB PO SCH (10:47)
[2021-07-16] MEDS: FERROUS SULFATE 325 MG TAB PO SCH ×2 (10:47→22:03)
[2021-07-16] MEDS ORDERED: SODIUM CHLORIDE 0.9% 250 ML IV PRN (10:58)
--- NOTE | 2021-07-16 11:36 | Orthopedic Progress Note ---
Date of Service July 16, 2021 Assessment & Plan (1) Status post-operative repair of hip fracture: Plan: POD 2 - ORIF left hip with Dr. Smith. May be out of bed with assitance and use of a walker. May WBAT LLE. Allowed for full ROM left hip, left knee and left ankle. PT/OT as ordered Pain control with p.o. medication and she will excepted DVT prophylaxis With Lovenox, DOMENICA stockings and SCDs Ice with easy wrap Keep dressings intact Talked with nursing about contacting the patient's son in hopes that she would start taking the medications she was able to talk with him. Case management evaluation Continue care per medicine service We will continue to follow while patient is in house. Admission and Anticipated Discharge Date Admission Date: July 13, 2021 Subjective Patient resting in bed, awakened, pleasantly confused this morning. States that she's had a great morning and a visit from two seniors this morning. They also gave her a "great workout". Physical Exam Musculoskeletal: Left hip incisions clean, dry and intact. Mild dried bloody drainage on dressings, edema left thigh, nontender left calf. Able to dorsiflex and plantarflex her left foot. Strength intact. Unable to lift or straighten her leg because of her "hard workout this morning". Results & Data ([facility]) Vital Signs (Past 12 Hours) Vital Signs Temp Pulse Pulse Resp BP Pulse Ox 07/16/21 08:10 37.0 C 74 20 103/55 L 93 07/16/21 07:13 83 07/16/21 03:11 36.6 C 79 18 102/55 L 92 07/15/21 23:49 108 H Laboratory Results 07/16/21 07/16/21 07/16/21 Range/Units 07:30 07:22 07:22 Hgb 6.9 L* (12.0-16.0) g/dL Hct 21.3 L (37-47) % Sodium 132 L (136-145) mmol/L Potassium 3.4 L (3.5-5.1) mmol/L Chloride 106 (98-107) mmol/L Carbon Dioxide 23 (21-32) mmol/L Anion Gap 3 (3-11) BUN 23 (6-23) mg/dl Creatinine 0.69 (0.6-1.2) mg/dl Est Cr Clr Drug Dosing 60.3 ml/min Est GFR ( Amer) 93.3 ml/min Est GFR (Non-Af Amer) 80.5 ml/min BUN/Creatinine Ratio 33.3 H (10-20) Glucose 134 H (70-99(Fasting)) mg/dl POC Glucose 134 H (70-99) mg/dl Calcium 7.8 L (8.5-10.1) mg/dl Total Bilirubin 0.5 (0.2-1.0) mg/dl AST 25 (13-39) U/L ALT 15 (7-52) U/L Alkaline Phosphatase 60 (34-104) U/L Total Protein 5.0 L (6.0-8.3) gm/dl Albumin 2.7 L (3.4-5.0) gm/dl Globulin 2.3 L (2.5-4.0) gm/dl Albumin/Globulin Ratio 1.2 (0.9-2) Blood Type Antibody Screen Crossmatch 07/15/21 07/15/21 07/15/21 Range/Units 20:08 16:44 11:56 Hgb (12.0-16.0) g/dL Hct (37-47) % Sodium (136-145) mmol/L Potassium (3.5-5.1) mmol/L Chloride (98-107) mmol/L Carbon Dioxide (21-32) mmol/L Anion Gap (3-11) BUN (6-23) mg/dl Creatinine (0.6-1.2) mg/dl Est Cr Clr Drug Dosing ml/min Est GFR ( Amer) ml/min Est GFR (Non-Af Amer) ml/min BUN/Creatinine Ratio (10-20) Glucose (70-99(Fasting)) mg/dl POC Glucose 150 H 149 H 135 H (70-99) mg/dl Calcium (8.5-10.1) mg/dl Total Bilirubin (0.2-1.0) mg/dl AST (13-39) U/L ALT (7-52) U/L Alkaline Phosphatase (34-104) U/L Total Protein (6.0-8.3) gm/dl Albumin (3.4-5.0) gm/dl Globulin (2.5-4.0) gm/dl Albumin/Globulin Ratio (0.9-2) Blood Type Antibody Screen Crossmatch 07/14/21 Range/Units 09:28 Hgb (12.0-16.0) g/dL Hct (37-47) % Sodium (136-145) mmol/L Potassium (3.5-5.1) mmol/L Chloride (98-107) mmol/L Carbon Dioxide (21-32) mmol/L Anion Gap (3-11) BUN (6-23) mg/dl Creatinine (0.6-1.2) mg/dl Est Cr Clr Drug Dosing ml/min Est GFR ( Amer) ml/min Est GFR (Non-Af Amer) ml/min BUN/Creatinine Ratio (10-20) Glucose (70-99(Fasting)) mg/dl POC Glucose (70-99) mg/dl Calcium (8.5-10.1) mg/dl Total Bilirubin (0.2-1.0) mg/dl AST (13-39) U/L ALT (7-52) U/L Alkaline Phosphatase (34-104) U/L Total Protein (6.0-8.3) gm/dl Albumin (3.4-5.0) gm/dl Globulin (2.5-4.0) gm/dl Albumin/Globulin Ratio (0.9-2) Blood Type A Positive Antibody Screen NEGATIVE Crossmatch See Detail
[2021-07-16] MEDS: LACTATED RINGER'S 1,000 ML IV SCH (12:06)
[2021-07-16] MEDS: DAPTOmycin 325 MG in SYRINGE 0 ML IV SCH (16:10)
--- NOTE | 2021-07-16 18:07 | Hospitalist Progress Note ---
Date of Service July 16, 2021 Assessment & Plan (1) Status post-operative repair of hip fracture: Plan: (1) Hip fracture, left: #. Fall Plan: Mechanical fall with left hip fracture Status post left hip intertrochanteric nail placement on 07/14/2021 Appreciate Ortho input and recommendation Management will be as per Ortho Has been requiring more pain medications to control pain #. Acute blood loss anemia on anemia of chronic disease Hemoglobin before surgery was 10.5 and went down to 7.7 as of 07/15/2021 We will monitor CBC and transfuse if hemoglobin drops below 7, hemoglobin 6.9 today, requiring blood transfusion 1 unit. #. Acute metabolic encephalopathy Multifactorial-recent surgery, UTI, pain medications and anesthetic agents are likely agents to blame We will observe while in the hospital and likely to resolve Was AOx3 today at bedside exam. #. Prior wound infection following surgery Required intravenous daptomycin for a long time and was on doxycycline. Completed the course. Intravenous daptomycin has been started by orthopedic surgeon and will be continued for some time (4) Presumed UTI (urinary tract infection): Plan: UA suggestive of infection, received IV ceftriaxone Urine culture came back negative, antibiotics discontinued. #. Other chronic medical conditions: Esophagitis on PPI, hypothyroidism, hypertensive heart disease, panic disorder, depression, sleep apnea on oxygen at bedtime Continue with/resume home medication as and when appropriate. Continue with PPI. DVT prophylaxis Has been on Lovenox CODE STATUS Full Admission and Anticipated Discharge Date Admission Date: July 13, 2021 Subjective Patient seen and examined at bedside as a follow-up of left hip fracture status post repair and acute blood loss anemia and acute metabolic encephalopathy. Patient lying in bed, on room air, in mild distress due to pain in her left hip. Patient recently worked with physical therapy and afterwards she is having some pain. Communicated with RN to give her pain medication. Patient AOx3, communicating well. Patient denies any fever/headache/dizziness/chest pain/palpitations/belly pain/other review of symptoms. Per RN patient was confused overnight and in the morning, denying medications/food. Physical Exam Physical Exam: GENERAL: Alert and oriented x3. NAD, on RA. HEENT: No pallor, no icterus. Pupils equal, round and reactive to light. Oral mucosa moist. NECK: No JVD, no neck masses. HEART: S1 and S2 heard. Regular rate and rhythm. No murmur, no gallop. RESPIRATORY SYSTEM: Normal AP diameter. No accessory muscle use. No wheezing, no crackles. ABDOMEN: Soft, bowel sounds present, nontender, no distention. CENTRAL NERVOUS SYSTEM: No facial droop. Speech is clear. Obeys simple commands. Moves extremities. EXTREMITIES: No edema, no erythema seen. Left hip with clean dressing without soakage noted. Results & Data Results & Data ([facility]) Vital Signs (Past 12 Hours) Vital Signs Temp Pulse Pulse Resp BP BP BP 07/16/21 16:09 36.8 C 72 18 106/52 L 07/16/21 15:55 36.8 C 68 18 107/56 L 07/16/21 15:49 79 07/16/21 15:23 36.7 C 90 20 120/70 07/16/21 15:02 36.7 C 90 20 120/70 07/16/21 13:54 36.8 C 72 18 104/48 L 07/16/21 13:25 36.5 C 76 18 103/51 L 07/16/21 12:55 36.7 C 78 18 90/49 L 07/16/21 12:40 36.8 C 86 16 106/69 07/16/21 12:24 36.3 C L 86 18 120/70 07/16/21 11:47 36.5 C 82 20 128/67 07/16/21 08:10 37.0 C 74 20 103/55 L 07/16/21 07:13 83 Pulse Ox 07/16/21 16:09 95 07/16/21 15:55 95 07/16/21 15:49 07/16/21 15:23 94 07/16/21 15:02 94 07/16/21 13:54 95 07/16/21 13:25 94 07/16/21 12:55 95 07/16/21 12:40 94 07/16/21 12:24 92 07/16/21 11:47 95 07/16/21 08:10 93 07/16/21 07:13
[2021-07-16] MEDS ORDERED: OLANZapine 10 MG/2.1 ML SDV IM PRN (21:38)
[2021-07-16] MEDS: ACETAMINOPHEN 500 MG TAB PO PRN (22:02)
[2021-07-16] MEDS: SERTRALINE HCL 100 MG TABLET PO SCH (22:04)
[2021-07-16] MEDS: ENOXAPARIN INJ 40 MG/0.4 ML SYR SQ SCH (22:09)
[2021-07-17] MEDS: HYDROmorphone INJ 0.5 MG/0.5 ML SYR IV PRN ×2 (00:04→06:10)
[2021-07-17] MEDS: D5W AND 1/2NSS 1,000 ML IV SCH (04:24)
[2021-07-17] MEDS: LEVOTHYROXINE SODIUM 125 MCG TABLET PO SCH (06:11)
--- NOTE | 2021-07-17 06:59 | Ultrasound Report ---
US venous doppler LE LT CLINICAL HISTORY: Left leg swelling and pain . Status post internal fixation for left femoral neck fr acture. COMPARISON: 02/28/2021 TECHNIQUE: Left lower extremity real-time compression venous ultrasound with Color Doppler imaging. Utilizing real-time ultrasonic imaging multiple real time high-resolution ultrasonic images with comp ression and noncompression maneuvers of the deep venous system in addition to color doppler imaging w ere performed from the common femoral vein through the proximal calf veins. FINDINGS: This is a limited examination as the patient would not cooperate and did not tolerate augmentation or compressions. There is turbulent flow demonstrated with no obvious deep vein is thrombosis is identi fied. Edematous changes are present involving the leg. Impression: Limited examination as described above with no definite deep venous thrombosis identified. ACT 112: Negative or not required by law. Electronically signed by: Benji Acevedo M.D. 07/17/2021 6:57 AM
[2021-07-17 07:08] LABS: Hematocrit (blood only) 26.1 % (37-47); Hemoglobin 8.6 g/dL (12.0-16.0); Mean Corpuscular Hemoglobin 28.7 pg (25-34); Mean Platelet Volume 9.4 fL (7.4-10.4); Platelet Count 223 K/uL (130-400); RDW Coefficient of Variation 15.2 % (11.5-14.5)
[2021-07-17 07:38] LABS: BUN Creatinine Ratio 30.4 (10-20); Calcium 8.4 mg/dl (8.5-10.1); Est GFR (African American) 93.3 ml/min; Est GFR (Non-African American) 80.5 ml/min; Magnesium 1.7 mg/dl (1.7-2.4); Phosphorus 2.4 mg/dl (2.5-4.9); Potassium 3.8 mmol/L (3.5-5.1)
[2021-07-17] MEDS: FERROUS SULFATE 325 MG TAB PO SCH ×2 (08:47→20:26)
[2021-07-17] MEDS: ATENOLOL 25 MG TABLET PO SCH (08:47)
[2021-07-17] MEDS: INSULIN ASPART PER UNIT SC SCH ×4 (08:47→20:26)
[2021-07-17] MEDS: LOSARTAN POTASSIUM 25 MG TAB PO SCH (08:47)
[2021-07-17] MEDS: PANTOprazole 40 MG TAB PO SCH ×2 (08:47→20:27)
[2021-07-17] MEDS: POLYETHYLENE (MIRALAX) 17 GM PACK PO PRN (08:51)
[2021-07-17] MEDS: traMADol HCL 50 MG TABLET PO PRN (08:51)
--- NOTE | 2021-07-17 09:48 | Orthopedic Progress Note ---
Date of Service July 17, 2021 Assessment & Plan (1) Status post-operative repair of hip fracture: Plan: POD 3 - ORIF left hip with Dr. Smith. May be out of bed with assistance and use of a walker. May WBAT LLE. Allowed for full ROM left hip, left knee and left ankle. PT/OT as ordered. Have patient get out of bed to sit at chair for awhile, maybe out of bed for meals. Pain control with p.o. medication DVT prophylaxis With Lovenox, DOMENICA stockings and SCDs Ice with easy wrap to left hip. Keep dressings intact, redress as needed. Case management for disposition. Would recommend discontinuing her Bass at this time. Continue care per medicine service. Keep heels off bed. Pillow between knees or under left leg for elevation. We will continue to follow while patient is in house. Admission and Anticipated Discharge Date Admission Date: July 13, 2021 Subjective Patient resting in bed, thinks that she is currently driving a car. She's asking where the gas pedal is because she can't get it to go. She is pleasantly confused this morning. Physical Exam Musculoskeletal: Left hip dressings clean, dry and intact. new dressings applied since yesterday. She does have edema left leg and keeps her leg internally rotated. when tried to put pillow under her leg and move her hip she yelped in pain. Calf nontender and supple, distal pulses intact, full ankle ROM and strength. Nontender at either knee. distal pulses 2+ Results & Data ([facility]) Vital Signs (Past 12 Hours) Vital Signs Temp Pulse Pulse Resp BP BP Pulse Ox 07/17/21 07:57 36.8 C 79 18 117/71 95 07/17/21 07:19 78 07/17/21 06:10 95 07/17/21 03:45 36.6 C 76 18 107/64 89 L 07/17/21 01:32 83 07/16/21 22:40 36.6 C 82 20 124/66 97 Laboratory Results 07/17/21 07/17/21 07/17/21 Range/Units 07:43 06:34 06:34 WBC 8.90 (4.8-10.8) K/uL RBC 3.00 L (4.2-5.4) M/uL Hgb 8.6 L (12.0-16.0) g/dL Hct 26.1 L (37-47) % MCV 87.0 (80-100) fL MCH 28.7 (25-34) pg MCHC 33.0 (32-36) g/dL RDW Std Deviation 48.0 H (36.4-46.3) fL RDW Coeff of Brandan 15.2 H (11.5-14.5) % Plt Count 223 (130-400) K/uL MPV 9.4 (7.4-10.4) fL Sodium 135 L (136-145) mmol/L Potassium 3.8 (3.5-5.1) mmol/L Chloride 108 H (98-107) mmol/L Carbon Dioxide 21 (21-32) mmol/L Anion Gap 6 (3-11) BUN 21 (6-23) mg/dl Creatinine 0.69 (0.6-1.2) mg/dl Est Cr Clr Drug Dosing 62.0 ml/min Est GFR ( Amer) 93.3 ml/min Est GFR (Non-Af Amer) 80.5 ml/min BUN/Creatinine Ratio 30.4 H (10-20) Glucose 108 H (70-99(Fasting)) mg/dl POC Glucose 115 H (70-99) mg/dl Calcium 8.4 L (8.5-10.1) mg/dl Phosphorus 2.4 L (2.5-4.9) mg/dl Magnesium 1.7 (1.7-2.4) mg/dl Total Creatine Kinase 379 H (26-192) U/L Blood Type Antibody Screen Crossmatch 07/16/21 07/16/21 07/16/21 Range/Units 20:04 16:54 11:34 WBC (4.8-10.8) K/uL RBC (4.2-5.4) M/uL Hgb (12.0-16.0) g/dL Hct (37-47) % MCV (80-100) fL MCH (25-34) pg MCHC (32-36) g/dL RDW Std Deviation (36.4-46.3) fL RDW Coeff of Brandan (11.5-14.5) % Plt Count (130-400) K/uL MPV (7.4-10.4) fL Sodium (136-145) mmol/L Potassium (3.5-5.1) mmol/L Chloride (98-107) mmol/L Carbon Dioxide (21-32) mmol/L Anion Gap (3-11) BUN (6-23) mg/dl Creatinine (0.6-1.2) mg/dl Est Cr Clr Drug Dosing ml/min Est GFR ( Amer) ml/min Est GFR (Non-Af Amer) ml/min BUN/Creatinine Ratio (10-20) Glucose (70-99(Fasting)) mg/dl POC Glucose 159 H 119 H 134 H (70-99) mg/dl Calcium (8.5-10.1) mg/dl Phosphorus (2.5-4.9) mg/dl Magnesium (1.7-2.4) mg/dl Total Creatine Kinase (26-192) U/L Blood Type Antibody Screen Crossmatch 07/16/21 07/14/21 Range/Units 07:30 09:28 WBC (4.8-10.8) K/uL RBC (4.2-5.4) M/uL Hgb 6.9 L* (12.0-16.0) g/dL Hct 21.3 L (37-47) % MCV (80-100) fL MCH (25-34) pg MCHC (32-36) g/dL RDW Std Deviation (36.4-46.3) fL RDW Coeff of Brandan (11.5-14.5) % Plt Count (130-400) K/uL MPV (7.4-10.4) fL Sodium (136-145) mmol/L Potassium (3.5-5.1) mmol/L Chloride (98-107) mmol/L Carbon Dioxide (21-32) mmol/L Anion Gap (3-11) BUN (6-23) mg/dl Creatinine (0.6-1.2) mg/dl Est Cr Clr Drug Dosing ml/min Est GFR ( Amer) ml/min Est GFR (Non-Af Amer) ml/min BUN/Creatinine Ratio (10-20) Glucose (70-99(Fasting)) mg/dl POC Glucose (70-99) mg/dl Calcium (8.5-10.1) mg/dl Phosphorus (2.5-4.9) mg/dl Magnesium (1.7-2.4) mg/dl Total Creatine Kinase (26-192) U/L Blood Type A Positive Antibody Screen NEGATIVE Crossmatch See Detail
[2021-07-17] MEDS: POT PHOSPHATE MONOBASIC W/ SOD TAB PO SCH ×4 (10:12→20:27)
[2021-07-17] MEDS: LACTATED RINGER'S 1,000 ML IV SCH (11:46)
[2021-07-17] MEDS ORDERED: traMADol HCL 50 MG TABLET PO PRN (16:25)
[2021-07-17] MEDS ORDERED: MoRPHine SULFATE 4 MG/ML 1 ML CARP\\VIAL IV PRN (16:25)
--- NOTE | 2021-07-17 16:25 | Hospitalist Progress Note ---
Date of Service July 17, 2021 Assessment & Plan (1) Status post-operative repair of hip fracture: Plan: (1) Hip fracture, left: #. Fall Plan: Mechanical fall with left hip fracture Status post left hip intertrochanteric nail placement on 07/14/2021 Appreciate Ortho input and recommendation Management will be as per Ortho Adding ketorolac, and decreasing narcotics, adding bowel regimen. Continue with supportive management. PT/OT. #. Acute blood loss anemia on anemia of chronic disease Hemoglobin before surgery was 10.5 and went down to 7.7 as of 07/15/2021 We will monitor CBC and transfuse if hemoglobin drops below 7, hemoglobin 6.9 on 07/16, s/p 1 unit PRBC transfusion Monitor hemoglobin daily and as needed. #. Acute metabolic encephalopathy Multifactorial-recent surgery, UTI, pain medications and anesthetic agents are likely agents to blame We will decrease narcotics pain medication, will add IV Toradol. Patient alert but not oriented, continue with supportive care. #. Prior wound infection following surgery Required intravenous daptomycin for a long time and was on doxycycline. Completed the course. Intravenous daptomycin has been started by orthopedic surgeon --> DC'd 07/17 CPK level elevated today, will continue to monitor. Will resume doxy for chr suppressive therapy 07/17. (4) Presumed UTI (urinary tract infection): Plan: UA suggestive of infection, received IV ceftriaxone Urine culture came back negative, antibiotics discontinued. #. Other chronic medical conditions: Esophagitis on PPI, hypothyroidism, hypertensive heart disease, panic disorder, depression, sleep apnea on oxygen at bedtime Continue with/resume home medication as and when appropriate. Continue with PPI. DVT prophylaxis Has been on Lovenox CODE STATUS Full Admission and Anticipated Discharge Date Admission Date: July 13, 2021 Subjective Patient seen and examined at bedside as a follow-up of left hip fracture status post repair and acute blood loss anemia and acute metabolic encephalopathy. Patient lying in bed, on room air, NAD, alert but not oriented, per RN she was confused and combative overnight, she took her morning medication but ate a little breakfast. Patient reports pain under control at left hip. Patient denies any fever/headache/dizziness/chest pain/palpitations/belly pain/other review of symptoms. Physical Exam Physical Exam: GENERAL: Alert but oriented x0. NAD, on RA. HEENT: No pallor, no icterus. Pupils equal, round and reactive to light. Oral mucosa moist. NECK: No JVD, no neck masses. HEART: S1 and S2 heard. Regular rate and rhythm. No murmur, no gallop. RESPIRATORY SYSTEM: Normal AP diameter. No accessory muscle use. No wheezing, no crackles. ABDOMEN: Soft, bowel sounds present, nontender, no distention. CENTRAL NERVOUS SYSTEM: No facial droop. Speech is clear. Obeys simple commands. Moves extremities. EXTREMITIES: No edema, no erythema seen. Left hip with clean dressing without soakage noted. Results & Data Results & Data ([facility]) Vital Signs (Past 12 Hours) Vital Signs Temp Pulse Pulse Resp BP Pulse Ox 07/17/21 12:01 36.8 C 69 18 113/70 95 07/17/21 07:57 36.8 C 79 18 117/71 95 07/17/21 07:19 78 07/17/21 06:10 95
[2021-07-17] MEDS: ACETAMINOPHEN 500 MG TAB PO PRN (16:49)
[2021-07-17] MEDS: DOXYCYCLINE HYCLATE 100 MG CAP PO SCH ×2 (17:17→17:59)
[2021-07-17] MEDS: POLYETHYLENE (MIRALAX) 17 GM PACK PO SCH (17:54)
[2021-07-17] MEDS: DOCUSATE SODIUM 100 MG CAP PO SCH (20:26)
[2021-07-17] MEDS: ENOXAPARIN INJ 40 MG/0.4 ML SYR SQ SCH (20:26)
[2021-07-17] MEDS: SERTRALINE HCL 100 MG TABLET PO SCH (20:27)
[2021-07-17] MEDS: MELATONIN 3 MG TAB PO SCH (20:27)
[2021-07-18] MEDS: LEVOTHYROXINE SODIUM 125 MCG TABLET PO SCH (06:19)
[2021-07-18 08:36] LABS: Hematocrit (blood only) 24.9 % (37-47); Hemoglobin 8.2 g/dL (12.0-16.0)
[2021-07-18] MEDS: INSULIN ASPART PER UNIT SC SCH ×4 (08:41→22:23)
[2021-07-18 09:07] LABS: Magnesium 1.6 mg/dl (1.7-2.4); Phosphorus 3.3 mg/dl (2.5-4.9)
[2021-07-18] MEDS ORDERED: MAGNESIUM SULFATE / D5W 1 GM/100 ML BAG IV ONE (09:30)
--- NOTE | 2021-07-18 09:48 | Orthopedic Progress Note ---
Date of Service July 18, 2021 Assessment & Plan (1) Status post-operative repair of hip fracture: Plan: POD 4 - ORIF left hip with Dr. Smith. May be out of bed with assistance and use of a walker. May WBAT LLE. Allowed for full ROM left hip, left knee and left ankle. PT/OT as ordered. Have patient get out of bed to sit at chair for awhile, maybe out of bed for meals. Pain control with p.o. medication DVT prophylaxis With Lovenox, DOMENICA stockings and SCDs Ice with easy wrap to left hip. Keep dressings intact, redress as needed. Case management for disposition. Continue care per medicine service. Keep heels off bed. Pillow between knees or under left leg for elevation. We will continue to follow while patient is in house. Admission and Anticipated Discharge Date Admission Date: July 13, 2021 Subjective This 85-year-old female is 4 days status post left hip fracture ORIF with troch nailing. Patient is lying in bed comfortably this morning. She was very pleasant when I asked her questions. She states that she still has pain in her hip and the left knee. She states that she has not been able to participate in physical therapy but has transition to her bedside chair a few times with maximum assistance. Currently she denies chest pain, shortness of breath, fever, chills, sweats, lethargy, numbness or tingling in her left lower extremity, nausea, vomiting, diarrhea or difficulty voiding. Review of Systems Review of Systems: All systems reviewed & are unremarkable except as noted in Subjective Physical Exam Physical Exam: Left lower Extremity examination was very limited. Patient was able to actively move her toes and dorsi and plantarflex her foot. Passive knee flexion to 90 degrees causes referred pain to her left hip. Her surgical incision sites were covered with sterile gauze and Tegaderms. The dressings were clean dry and intact and not removed. Patient is neurovascularly intact in left lower extremity Results & Data ([facility]) Vital Signs (Past 12 Hours) Vital Signs Temp Pulse Pulse Pulse Resp BP BP 07/18/21 07:52 78 14 90/68 L 07/18/21 00:00 80 07/17/21 22:40 36.7 C 80 18 101/55 L Pulse Ox 07/18/21 07:52 07/18/21 00:00 07/17/21 22:40 96 Diagnostic Findings Laboratory Results WBC 8.90 K/uL (4.8-10.8) 07/17/21 06:34 RBC 3.00 M/uL (4.2-5.4) L 07/17/21 06:34 Hgb 8.2 g/dL (12.0-16.0) L 07/18/21 07:37 Hct 24.9 % (37-47) L 07/18/21 07:37 MCV 87.0 fL (80-100) 07/17/21 06:34 MCH 28.7 pg (25-34) 07/17/21 06:34 MCHC 33.0 g/dL (32-36) 07/17/21 06:34 RDW Std Deviation 48.0 fL (36.4-46.3) H 07/17/21 06:34 RDW Coeff of Brandan 15.2 % (11.5-14.5) H 07/17/21 06:34 Plt Count 223 K/uL (130-400) 07/17/21 06:34 MPV 9.4 fL (7.4-10.4) 07/17/21 06:34 Immature Gran % (Auto) 0.1 % 07/15/21 05:15 Neut % (Auto) 70.3 % 07/15/21 05:15 Lymph % (Auto) 16.4 % 07/15/21 05:15 [place] % (Auto) 12.1 % 07/15/21 05:15 Eos % (Auto) 0.7 % 07/15/21 05:15 Baso % (Auto) 0.4 % 07/15/21 05:15 Neut # (Auto) 4.72 K/uL (1.4-6.5) 07/15/21 05:15 Lymph # (Auto) 1.10 K/uL (1.2-3.4) L 07/15/21 05:15 [place] # (Auto) 0.81 K/uL (0.11-0.59) H 07/15/21 05:15 Eos # (Auto) 0.05 K/uL (0-0.5) 07/15/21 05:15 Baso # (Auto) 0.03 K/uL (0-0.2) 07/15/21 05:15 Immature Gran # (Auto) 0.01 K/uL (0.00-0.02) 07/15/21 05:15 RBC Morphology Unremarkable 07/15/21 05:15 PT 11.2 Seconds (9.0-12.0) 07/13/21 18:30 INR 1.1 (0.9-1.1) 07/13/21 18:30 Sodium 135 mmol/L (136-145) L 07/17/21 06:34 Potassium 3.8 mmol/L (3.5-5.1) 07/17/21 06:34 Chloride 108 mmol/L (98-107) H 07/17/21 06:34 Carbon Dioxide 21 mmol/L (21-32) 07/17/21 06:34 Anion Gap 6 (3-11) 07/17/21 06:34 BUN 21 mg/dl (6-23) 07/17/21 06:34 Creatinine 0.69 mg/dl (0.6-1.2) 07/17/21 06:34 Est Cr Clr Drug Dosing 62.0 ml/min 07/17/21 06:34 Est GFR ( Amer) 93.3 ml/min 07/17/21 06:34 Est GFR (Non-Af Amer) 80.5 ml/min 07/17/21 06:34 BUN/Creatinine Ratio 30.4 (10-20) H 07/17/21 06:34 Glucose 108 mg/dl (70-99(Fasting)) H 07/17/21 06:34 POC Glucose 113 mg/dl (70-99) H 07/18/21 07:39 Estimat Average Glucose 131 mg/dl 07/14/21 05:22 Hemoglobin A1c 6.2 % (4.5-5.6) H 07/14/21 05:22 Calcium 8.4 mg/dl (8.5-10.1) L 07/17/21 06:34 Phosphorus 3.3 mg/dl (2.5-4.9) 07/18/21 07:37 Magnesium 1.6 mg/dl (1.7-2.4) L 07/18/21 07:37 Total Bilirubin 0.5 mg/dl (0.2-1.0) 07/16/21 07:22 AST 25 U/L (13-39) 07/16/21 07:22 ALT 15 U/L (7-52) 07/16/21 07:22 Alkaline Phosphatase 60 U/L (34-104) 07/16/21 07:22 Total Creatine Kinase 201 U/L (26-192) H 07/18/21 07:37 Total Protein 5.0 gm/dl (6.0-8.3) L 07/16/21 07:22 Albumin 2.7 gm/dl (3.4-5.0) L 07/16/21 07:22 Globulin 2.3 gm/dl (2.5-4.0) L 07/16/21 07:22 Albumin/Globulin Ratio 1.2 (0.9-2) 07/16/21 07:22 25-OH Vitamin D Total 17.7 ng/ml (30-100) L 07/15/21 05:15 Procalcitonin 0.14 ng/ml (0-0.5) 07/17/21 19:44 Urine Color Dark Yellow 07/13/21 18:25 Urine Appearance Clear (Clear) 07/13/21 18:25 Urine pH 5.5 (4.5-7.5) 07/13/21 18:25 Ur Specific [place] 1.028 (1.000-1.030) 07/13/21 18:25 Urine Protein Trace (Negative) H 07/13/21 18:25 Urine Glucose (UA) Negative (Negative) 07/13/21 18:25 Urine Ketones 1+ (Negative) H 07/13/21 18:25 Urine Blood Negative (Negative) 07/13/21 18:25 Urine Nitrite Negative (Negative) 07/13/21 18:25 Urine Bilirubin Negative (Negative) 07/13/21 18:25 Urine Urobilinogen Negative (Negative) 07/13/21 18:25 Ur Leukocyte Esterase Negative (Negative) 07/13/21 18:25 Urine WBC (Auto) 1-5 /hpf (0-5) 07/13/21 18:25 Urine RBC (Auto) 0-4 /hpf (0-4) 07/13/21 18:25 U Hyaline Cast (Auto) 1-5 /lpf (0-5) 07/13/21 18:25 U Epithel Cells (Auto) 5-10 /lpf (0-5) H 07/13/21 18:25 Urine Bacteria (Auto) 1+ (Negative) H 07/13/21 18:25 Urine Mucus Present (None Prsent) A 07/13/21 18:25 SARS-CoV-2, RNA, NAAT NEGATIVE (NEGATIVE) 07/13/21 19:45 Blood Type A Positive 07/14/21 09:28 Antibody Screen NEGATIVE 07/14/21 09:28 Crossmatch See Detail 07/14/21 09:28 Impressions Chest X-Ray 07/13/21 18:09 XR chest 1V portable CLINICAL HISTORY: fall. Evaluate cardiopulmonary status COMPARISON STUDY: 02/11/2021 TECHNIQUE: 1 view of the chest FINDINGS: Single frontal view of the chest demonstrates the heart to again be enlarged. The aorta is atherosclerotic and ectatic. The lungs are clear of alveolar opacities. There is no evidence for pleural effusion. There is no evidence for vascular congestion. There is no acute osseous pathology. There are marked degenerative changes of the right shoulder. IMPRESSION: 1. No acute cardiopulmonary disease. ACT 112: Negative or not required by law. Electronically signed by: Benji Acevedo M.D. 07/13/2021 7:06 PM Hip/Pelvis X-Ray 07/13/21 18:09 XR hip LT 2V w pelvis CLINICAL HISTORY: L hip pain s/p fall. COMPARISON STUDY: 01/27/2021 TECHNIQUE: AP pelvis and 2 left hip views FINDINGS: Bones: There has been interval development of a comminuted, intratrochanteric fracture of the left femoral neck. Displacement of fracture fragments is present. 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 No other fractures are identified. There is no lytic or blastic lesion. Joints: The femoral head maintains its anatomic position within the acetabulum. There is marked joint space narrowing. Narrowing of the right hip joint space is also present. The remaining bones are in anatomic alignment. Soft tissues: There is no focal soft tissue abnormality. There is no radiopaque foreign body. IMPRESSION: 1. Comminuted, intratrochanteric fracture of the left femoral neck displacement of fracture fragments and coxa varus deformity. ACT 112: Negative or not required by law. Electronically signed by: Benji Acevedo M.D. 07/13/2021 7:[address] 07/13/21 18:10 CT head/brain wo con CLINICAL HISTORY: Status post fall with trauma to the head. Pain. COMPARISON STUDY: 12/27/2020 CT DOSE: 1074.96 mGy.cm TECHNIQUE: Standard CT of the Brain was performed without IV contrast. A dose lowering technique was utilized adhering to the principles of ALARA. FINDINGS: Extraaxial space: There is no evidence for subdural hematoma. There are no extra-axial fluid collections. Ventricles and cisterns: The ventricles are mildly dilated bilaterally. There is no evidence for midline shift or mass effect. Parenchyma: There is no subarachnoid or intraparenchymal hemorrhage. There is a stable hyperdense focus within the right frontal lobe, again most likely representing a calcification. There is no evidence for an acute infarct or cerebral edema. There is mild cerebral cortical atrophy and decreased attenuation in the periventricular white matter representing remote small vessel disease. There are no gross mass lesions. Osseous structures: There is no evidence for an acute fracture. The visualized paranasal sinuses are clear. The mastoid air cells are clear bilaterally. Soft tissues: There is no evidence for focal soft tissue swelling. IMPRESSION: 1. No acute intracerebral pathology. 2. Cerebral cortical atrophy and remote small vessel disease. 3. Stable 7 mm hyperdensity within the right frontal lobe, most likely representing dystrophic calcification. ACT 112: Negative or not required by law. Electronically signed by: Benji Acevedo M.D. 07/13/2021 7:[address] 07/13/21 21:05 CT hip LT wo con CLINICAL HISTORY: eval fx TECHNIQUE: Multidetector row helical CT of the right knee was performed without intravenous contrast. Coronal and sagittal reformations were obtained. Automated dose lowering techniques and/or adjustment according to patient size were utilized for this examination. Comparison: Comparison is made to left hip radiograph 07/13/2021 FINDINGS: Comminuted intratrochanteric fracture of the left femoral neck. There is some overriding of fragments and apex lateral angulation. The joint spaces are maintained. Soft tissue swelling is seen in the adjacent musculature. IMPRESSION: Comminuted intratrochanteric fracture of the left femoral neck. ACT 112: Negative or not required by law. Electronically signed by: Juvencio Fiore M.D. 07/14/2021 7:50 AM Hip X-Ray 07/14/21 12:39 XR hip LT min 2V CLINICAL HISTORY: Post-Operative implant position. Status post internal fixation for left hip fracture. COMPARISON STUDY: 07/13/2021 TECHNIQUE: 4 left hip views FINDINGS: The patient is status post placement of a nail within the femoral head and neck transfixing the previously identified comminuted, intertrochanteric fracture. Long stem intramedullary meghan is present femoral shaft secured distally with a screw. IMPRESSION: 1. Status post internal fixation of left femoral neck fracture. ACT 112: Negative or not required by law. Electronically signed by: Benji Acevedo M.D. 07/14/2021 3:12 PM Venous Doppler Study 07/17/21 00:39 US venous doppler LE LT CLINICAL HISTORY: Left leg swelling and pain . Status post internal fixation for left femoral neck fracture. COMPARISON: 02/28/2021 TECHNIQUE: Left lower extremity real-time compression venous ultrasound with Color Doppler imaging. Utilizing real-time ultrasonic imaging multiple real time high-resolution ultrasonic images with compression and noncompression maneuvers of the deep venous system in addition to color doppler imaging were performed from the common femoral vein through the proximal calf veins. FINDINGS: This is a limited examination as the patient would not cooperate and did not tolerate augmentation or compressions. There is turbulent flow demonstrated with no obvious deep vein is thrombosis is identified. Edematous changes are present involving the leg. Impression: Limited examination as described above with no definite deep venous thrombosis identified. ACT 112: Negative or not required by law. Electronically signed by: Benji Acevedo M.D. 07/17/2021 6:57 AM
[2021-07-18] MEDS: ATENOLOL 25 MG TABLET PO SCH (10:32)
[2021-07-18] MEDS: DOXYCYCLINE HYCLATE 100 MG CAP PO SCH (10:33)
[2021-07-18] MEDS: LOSARTAN POTASSIUM 25 MG TAB PO SCH (10:33)
[2021-07-18] MEDS: FERROUS SULFATE 325 MG TAB PO SCH ×2 (10:33→21:44)
[2021-07-18] MEDS: PANTOprazole 40 MG TAB PO SCH ×2 (10:33→21:45)
[2021-07-18] MEDS: DOCUSATE SODIUM 100 MG CAP PO SCH ×2 (10:33→21:42)
[2021-07-18] MEDS: POLYETHYLENE (MIRALAX) 17 GM PACK PO SCH (10:34)
[2021-07-18] MEDS: LACTATED RINGER'S 1,000 ML IV SCH (13:09)
--- NOTE | 2021-07-18 16:53 | Hospitalist Progress Note ---
Date of Service July 18, 2021 Assessment & Plan (1) Status post-operative repair of hip fracture: Plan: (1) Hip fracture, left: #. Fall Plan: Mechanical fall with left hip fracture Status post left hip intertrochanteric nail placement on 07/14/2021 Appreciate Ortho input and recommendation Management will be as per Ortho Adding ketorolac, and use less narcotics, patient has not required much pain medication since yesterday. Continue with supportive management. PT/OT. #. Acute blood loss anemia on anemia of chronic disease Hemoglobin before surgery was 10.5 and went down to 7.7 as of 07/15/2021 We will monitor CBC and transfuse if hemoglobin drops below 7, hemoglobin 6.9 on 07/16, s/p 1 unit PRBC transfusion Monitor hemoglobin daily and as needed. #. Acute metabolic encephalopathy Multifactorial-recent surgery, UTI, pain medications and anesthetic agents are likely agents to blame We will decrease narcotics pain medication, will add IV Toradol. Patient alert but not oriented, continue with supportive care. Use less narcotics, ketorolac in place #. Prior wound infection following surgery Required intravenous daptomycin for a long time and was on doxycycline. Completed the course. Intravenous daptomycin has been started by orthopedic surgeon --> DC'd 07/17 CPK level elevated today, will continue to monitor as appropriate Will resume doxy for chr suppressive therapy 07/17. (4) Presumed UTI (urinary tract infection): Plan: UA suggestive of infection, received IV ceftriaxone Urine culture came back negative, antibiotics discontinued. #. Other chronic medical conditions: Esophagitis on PPI, hypothyroidism, hypertensive heart disease, panic disorder, depression, sleep apnea on oxygen at bedtime Continue with/resume home medication as and when appropriate. Continue with PPI. DVT prophylaxis Has been on Lovenox CODE STATUS Full Admission and Anticipated Discharge Date Admission Date: July 13, 2021 Subjective Patient seen and examined at bedside as a follow-up of left hip fracture status post repair and acute blood loss anemia and acute metabolic encephalopathy. Patient lying in bed, on room air, NAD, alert but not oriented, per RN, pt has been awake whole night d/t neighbor patient being agitated/disturbance, has been sleeping whole morning, hasn't take her AM meds and hasn't eaten anything. Patient reports pain under control at left hip. Patient denies any fever/headache/dizziness/chest pain/palpitations/belly pain/other review of symptoms. Physical Exam Physical Exam: GENERAL: Alert but oriented x0. NAD, on RA. HEENT: No pallor, no icterus. Pupils equal, round and reactive to light. Oral mucosa moist. NECK: No JVD, no neck masses. HEART: S1 and S2 heard. Regular rate and rhythm. No murmur, no gallop. RESPIRATORY SYSTEM: Normal AP diameter. No accessory muscle use. No wheezing, no crackles. ABDOMEN: Soft, bowel sounds present, nontender, no distention. CENTRAL NERVOUS SYSTEM: No facial droop. Speech is clear. Obeys simple commands. Moves extremities. EXTREMITIES: No edema, no erythema seen. Left hip with clean dressing without soakage noted. Results & Data Results & Data ([facility]) Vital Signs (Past 12 Hours) Vital Signs Temp Pulse Pulse Pulse Resp BP BP 07/18/21 15:25 37 C 80 16 137/77 07/18/21 11:14 83 07/18/21 10:50 36.8 C 75 14 112/65 07/18/21 07:52 78 14 90/68 L Pulse Ox 07/18/21 15:25 90 07/18/21 11:14 07/18/21 10:50 07/18/21 07:52
[2021-07-18] MEDS: ENOXAPARIN INJ 40 MG/0.4 ML SYR SQ SCH (21:43)
[2021-07-18] MEDS: MELATONIN 3 MG TAB PO SCH (21:44)
[2021-07-18] MEDS: SERTRALINE HCL 100 MG TABLET PO SCH (21:45)
[2021-07-18] MEDS: KETOROLAC TROMETHAMINE 15 MG/ML VIAL IV PRN (21:49)
[2021-07-19] MEDS: LEVOTHYROXINE SODIUM 125 MCG TABLET PO SCH (05:39)
[2021-07-19 07:18] LABS: Hematocrit (blood only) 24.9 % (37-47); Hemoglobin 8.1 g/dL (12.0-16.0)
[2021-07-19 07:42] LABS: BUN Creatinine Ratio 43.1 (10-20); Creatinine Clr Calc Pharmacy 64.6 ml/min; Est GFR (African American) 95.2 ml/min; Est GFR (Non-African American) 82.1 ml/min; Magnesium 1.8 mg/dl (1.7-2.4); Phosphorus 3.4 mg/dl (2.5-4.9); Potassium 3.3 mmol/L (3.5-5.1)
[2021-07-19] MEDS: DOXYCYCLINE HYCLATE 100 MG CAP PO SCH (08:42)
[2021-07-19] MEDS: ATENOLOL 25 MG TABLET PO SCH (08:42)
[2021-07-19] MEDS: LOSARTAN POTASSIUM 25 MG TAB PO SCH (08:42)
[2021-07-19] MEDS: FERROUS SULFATE 325 MG TAB PO SCH ×2 (08:42→20:07)
[2021-07-19] MEDS: PANTOprazole 40 MG TAB PO SCH ×2 (08:43→20:06)
[2021-07-19] MEDS: POLYETHYLENE (MIRALAX) 17 GM PACK PO SCH (08:43)
[2021-07-19] MEDS: DOCUSATE SODIUM 100 MG CAP PO SCH ×2 (08:43→20:05)
[2021-07-19] MEDS: INSULIN ASPART PER UNIT SC SCH ×4 (08:44→20:18)
[2021-07-19] MEDS: POTASSIUM CHLORIDE CRTAB 20 MEQ TABCR PO SCH ×2 (10:00→20:07)
[2021-07-19] MEDS: LACTATED RINGER'S 1,000 ML IV SCH (12:23)
--- NOTE | 2021-07-19 19:22 | Hospitalist Progress Note ---
Date of Service July 19, 2021 Assessment & Plan (1) Status post-operative repair of hip fracture: Plan: (1) Hip fracture, left: #. Fall Plan: Mechanical fall with left hip fracture Status post left hip intertrochanteric nail placement on 07/14/2021 Appreciate Ortho input and recommendation Management will be as per Ortho Continue with ketorolac, and use less narcotics, patient has not required much pain medication lately. Continue with supportive management. PT/OT. #. Acute blood loss anemia on anemia of chronic disease Hemoglobin before surgery was 10.5 and went down to 7.7 as of 07/15/2021 We will monitor CBC and transfuse if hemoglobin drops below 7, hemoglobin 6.9 on 07/16, s/p 1 unit PRBC transfusion Monitor hemoglobin daily and as needed. #. Acute metabolic encephalopathy Multifactorial-recent surgery, UTI, pain medications and anesthetic agents are likely agents to blame Use minimal narcotics, IV Toradol in place. Patient alert and oriented x3 today. Continue to monitor. #. Prior wound infection following surgery Required intravenous daptomycin for a long time and was on doxycycline. Completed the course. Intravenous daptomycin has been started by orthopedic surgeon --> DC'd 07/17 CPK level elevated today, will continue to monitor as appropriate Will resume doxy for chr suppressive therapy 07/17. (4) Presumed UTI (urinary tract infection): Plan: UA suggestive of infection, received IV ceftriaxone Urine culture came back negative, antibiotics discontinued. #. Other chronic medical conditions: Esophagitis on PPI, hypothyroidism, hypertensive heart disease, panic disorder, depression, sleep apnea on oxygen at bedtime Continue with/resume home medication as and when appropriate. Continue with PPI. DVT prophylaxis Has been on Lovenox CODE STATUS Full Disposition: PT/OT, CM to assist with DC planning, expect discharge in next 1 to 2 days if no new issues arises. Admission and Anticipated Discharge Date Admission Date: July 13, 2021 Subjective Patient seen and examined at bedside as a follow-up of left hip fracture status post repair and acute blood loss anemia and acute metabolic encephalopathy. Patient lying in bed, on room air, NAD, alert and oriented x3, per RN, patient is doing wonderful today, has taken all her medications, has been eating very good. Patient reports pain under control at left hip. Patient denies any fever/headache/dizziness/chest pain/palpitations/belly pain/other review of symptoms. Physical Exam Physical Exam: GENERAL: Alert but oriented x3. NAD, on RA. HEENT: No pallor, no icterus. Pupils equal, round and reactive to light. Oral mucosa moist. NECK: No JVD, no neck masses. HEART: S1 and S2 heard. Regular rate and rhythm. No murmur, no gallop. RESPIRATORY SYSTEM: Normal AP diameter. No accessory muscle use. No wheezing, no crackles. ABDOMEN: Soft, bowel sounds present, nontender, no distention. CENTRAL NERVOUS SYSTEM: No facial droop. Speech is clear. Obeys simple comman ds. Moves extremities. EXTREMITIES: No edema, no erythema seen. Left hip with clean dressing without soakage noted. Results & Data Results & Data ([facility]) Vital Signs (Past 12 Hours) Vital Signs Temp Pulse Pulse Resp BP Pulse Ox 07/19/21 18:30 36.7 C 81 18 116/64 96 07/19/21 15:29 36.6 C 74 20 106/57 L 95 07/19/21 12:25 36.8 C 71 20 122/67 95 07/19/21 07:53 36.6 C 107 H 18 146/78 H 94 07/19/21 07:30 77
[2021-07-19 19:45] LABS: Appearance Urine Cloudy (Clear); Bacteria Urine Automated Negative (Negative); Blood Urine Negative (Negative); Color Urine Orange; Epithelial Cell Urine Auto >30 /lpf (0-5); Glucose Urine UA Negative (Negative); Ketones Urine Negative (Negative); Leukocyte Esterase Urine 1+ (Negative); Nitrite Urine Negative (Negative); Protein Urine Negative (Negative); Specific Gravity Urine 1.023 (1.000-1.030); Urobilinogen Urine Negative (Negative)
[2021-07-19] MEDS: ENOXAPARIN INJ 40 MG/0.4 ML SYR SQ SCH (20:06)
[2021-07-19 20:09] LABS: Bilirubin Urine 1+ (Negative)
[2021-07-19] MEDS: MELATONIN 3 MG TAB PO SCH (20:09)
[2021-07-19] MEDS: SERTRALINE HCL 100 MG TABLET PO SCH (20:09)
[2021-07-19 20:11] LABS: RBC Urine Automated 0-4 /hpf (0-4)
[2021-07-19] MEDS: KETOROLAC TROMETHAMINE 15 MG/ML VIAL IV PRN (23:01)
[2021-07-20] MEDS ORDERED: DICLOFENAC SOD 1% GEL 100 GM TUBE EXT PRN (01:44)
[2021-07-20] MEDS: LEVOTHYROXINE SODIUM 125 MCG TABLET PO SCH (06:00)
[2021-07-20 07:28] LABS: Hematocrit (blood only) 25.3 % (37-47); Hemoglobin 8.5 g/dL (12.0-16.0)
[2021-07-20] MEDS: INSULIN ASPART PER UNIT SC SCH ×4 (07:49→21:55)
[2021-07-20] MEDS: LOSARTAN POTASSIUM 25 MG TAB PO SCH (08:03)
[2021-07-20] MEDS: ATENOLOL 25 MG TABLET PO SCH (08:03)
[2021-07-20] MEDS: FERROUS SULFATE 325 MG TAB PO SCH ×2 (08:03→21:22)
[2021-07-20] MEDS: PANTOprazole 40 MG TAB PO SCH ×2 (08:03→21:22)
[2021-07-20] MEDS: DOXYCYCLINE HYCLATE 100 MG CAP PO SCH (08:03)
[2021-07-20] MEDS: POLYETHYLENE (MIRALAX) 17 GM PACK PO SCH (08:03)
[2021-07-20] MEDS: DOCUSATE SODIUM 100 MG CAP PO SCH ×2 (08:03→21:21)
[2021-07-20] MEDS: ACETAMINOPHEN 500 MG TAB PO PRN (10:17)
[2021-07-20] MEDS: LACTATED RINGER'S 1,000 ML IV SCH (11:49)
--- NOTE | 2021-07-20 17:08 | Hospitalist Progress Note ---
Date of Service July 20, 2021 Assessment & Plan (1) Status post-operative repair of hip fracture: Plan: (1) Hip fracture, left: #. Fall Plan: Mechanical fall with left hip fracture Status post left hip intertrochanteric nail placement on 07/14/2021 Appreciate Ortho input and recommendation Management will be as per Ortho Continue with ketorolac, and use less narcotics, patient has not required much pain medication lately. Continue with supportive management. PT/OT. #. Acute blood loss anemia on anemia of chronic disease Hemoglobin before surgery was 10.5 and went down to 7.7 as of 07/15/2021 We will monitor CBC and transfuse if hemoglobin drops below 7, hemoglobin 6.9 on 07/16, s/p 1 unit PRBC transfusion Monitor hemoglobin daily and as needed. #. Acute metabolic encephalopathy Multifactorial-recent surgery, UTI, pain medications and anesthetic agents are likely agents to blame Use minimal narcotics, IV Toradol in place. Seems to have resolved. Continue to monitor. #. Prior wound infection following surgery Required intravenous daptomycin for a long time and was on doxycycline. Completed the course. Intravenous daptomycin has been started by orthopedic surgeon --> DC'd 07/17 CPK level elevated today, will continue to monitor as appropriate Will resume doxy for chr suppressive therapy 07/17. (4) Presumed UTI (urinary tract infection): Plan: UA suggestive of infection, received IV ceftriaxone Urine culture came back negative, antibiotics discontinued. #. Other chronic medical conditions: Esophagitis on PPI, hypothyroidism, hypertensive heart disease, panic disorder, depression, sleep apnea on oxygen at bedtime Continue with/resume home medication as and when appropriate. Continue with PPI. DVT prophylaxis Has been on Lovenox CODE STATUS Full Disposition: PT/OT, CM to assist with DC planning, stable for DC with ortho recs/ortho f/u, PCP f/u. Admission and Anticipated Discharge Date Admission Date: July 13, 2021 Subjective Patient seen and examined at bedside as a follow-up of left hip fracture status post repair and acute blood loss anemia and acute metabolic encephalopathy. Patient lying in bed, on room air, NAD, alert and oriented x3, per RN, patient is doing wonderful again today, has taken all her medications, has been eating very good. Patient reports pain under control at left hip. Patient denies any fever/headache/dizziness/chest pain/palpitations/belly pain/other review of symptoms. Physical Exam Physical Exam: GENERAL: Alert but oriented x3. NAD, on RA. HEENT: No pallor, no icterus. Pupils equal, round and reactive to light. Oral mucosa moist. NECK: No JVD, no neck masses. HEART: S1 and S2 heard. Regular rate and rhythm. No murmur, no gallop. RESPIRATORY SYSTEM: Normal AP diameter. No accessory muscle use. No wheezing, no crackles. ABDOMEN: Soft, bowel sounds present, nontender, no distention. CENTRAL NERVOUS SYSTEM: No facial droop. Speech is clear. Obeys simple commands. Moves extremities. EXTREMITIES: No edema, no erythema seen. Left hip with clean dressing without soakage noted. Results & Data Results & Data ([facility]) Vital Signs (Past 12 Hours) Vital Signs Temp Pulse Pulse Resp BP Pulse Ox 07/20/21 15:30 36.7 C 81 20 122/72 96 07/20/21 12:15 36.8 C 75 20 130/71 96 07/20/21 07:22 79 07/20/21 06:40 36.6 C 75 18 152/77 H 96
[2021-07-20] MEDS: ENOXAPARIN INJ 40 MG/0.4 ML SYR SQ SCH (21:21)
[2021-07-20] MEDS: MELATONIN 3 MG TAB PO SCH (21:22)
[2021-07-20] MEDS: SERTRALINE HCL 100 MG TABLET PO SCH (21:23)
[2021-07-21] MEDS: KETOROLAC TROMETHAMINE 15 MG/ML VIAL IV PRN ×2 (02:30→23:15)
[2021-07-21] MEDS: LEVOTHYROXINE SODIUM 125 MCG TABLET PO SCH (05:45)
[2021-07-21] MEDS: INSULIN ASPART PER UNIT SC SCH ×4 (08:24→20:13)
[2021-07-21] MEDS: ATENOLOL 25 MG TABLET PO SCH (08:30)
[2021-07-21] MEDS: POLYETHYLENE (MIRALAX) 17 GM PACK PO SCH (08:30)
[2021-07-21] MEDS: LOSARTAN POTASSIUM 25 MG TAB PO SCH (08:30)
[2021-07-21] MEDS: FERROUS SULFATE 325 MG TAB PO SCH ×2 (08:30→20:07)
[2021-07-21] MEDS: DOXYCYCLINE HYCLATE 100 MG CAP PO SCH (08:30)
[2021-07-21] MEDS: PANTOprazole 40 MG TAB PO SCH ×2 (08:30→20:08)
[2021-07-21] MEDS: DOCUSATE SODIUM 100 MG CAP PO SCH (08:30)
[2021-07-21] MEDS: LACTATED RINGER'S 1,000 ML IV SCH (15:09)
--- NOTE | 2021-07-21 17:24 | Hospitalist Progress Note ---
Date of Service July 21, 2021 Assessment & Plan (1) Status post-operative repair of hip fracture: Plan: (1) Hip fracture, left: #. Fall Plan: Mechanical fall with left hip fracture Status post left hip intertrochanteric nail placement on 07/14/2021 Appreciate Ortho input and recommendation Management will be as per Ortho Continue with ketorolac, and use less narcotics, patient has not required much pain medication lately. Continue with supportive management. PT/OT. #. Acute blood loss anemia on anemia of chronic disease Hemoglobin before surgery was 10.5 and went down to 7.7 as of 07/15/2021 We will monitor CBC and transfuse if hemoglobin drops below 7, hemoglobin 6.9 on 07/16, s/p 1 unit PRBC transfusion Monitor hemoglobin daily and as needed. Hb has been stable #. Acute metabolic encephalopathy Multifactorial-recent surgery, UTI, pain medications and anesthetic agents are likely agents to blame Use minimal narcotics, IV Toradol in place. Resolved. Continue to monitor. #. Prior wound infection following surgery Required intravenous daptomycin for a long time and was on doxycycline. Completed the course. Intravenous daptomycin has been started by orthopedic surgeon --> DC'd 07/17 CPK level elevated, will continue to monitor as appropriate Will resume doxy for chr suppressive therapy 07/17. (4) Presumed UTI (urinary tract infection): Plan: UA suggestive of infection, received IV ceftriaxone Urine culture came back negative, antibiotics discontinued. #. Other chronic medical conditions: Esophagitis on PPI, hypothyroidism, hypertensive heart disease, panic disorder, depression, sleep apnea on oxygen at bedtime Continue with/resume home medication as and when appropriate. Continue with PPI. DVT prophylaxis Has been on Lovenox CODE STATUS Full Disposition: PT/OT, CM to assist with DC planning, stable for DC with ortho recs/ortho f/u, PCP f/u. Likely DC silvia if no new issues arise. Admission and Anticipated Discharge Date Admission Date: July 13, 2021 Subjective Patient seen and examined at bedside as a follow-up of left hip fracture status post repair and acute blood loss anemia and acute metabolic encephalopathy. Patient sitting up in chair, on room air, NAD, alert and oriented x3, Patient is doing great, has been eating very good, reports moving bowel yesterday Patient reports pain under control at left hip. Patient denies any fever/headache/dizziness/chest pain/palpitations/belly pain/other review of symptoms. Physical Exam Physical Exam: GENERAL: Alert but oriented x3. NAD, on RA. HEENT: No pallor, no icterus. Pupils equal, round and reactive to light. Oral mucosa moist. NECK: No JVD, no neck masses. HEART: S1 and S2 heard. Regular rate and rhythm. No murmur, no gallop. RESPIRATORY SYSTEM: Normal AP diameter. No accessory muscle use. No wheezing, no crackles. ABDOMEN: Soft, bowel sounds present, nontender, no distention. CENTRAL NERVOUS SYSTEM: No facial droop. Speech is clear. Obeys simple comm ands. Moves extremities. EXTREMITIES: No edema, no erythema seen. Left hip with clean dressing without soakage noted. Results & Data Results & Data ([facility] [place]) Vital Signs (Past 12 Hours) Vital Signs Temp Pulse Pulse Pulse Resp BP Pulse Ox 07/21/21 15:38 36.9 C 76 20 106/67 97 07/21/21 10:59 36.6 C 70 16 100/69 96 07/21/21 08:08 36.7 C 72 16 132/75 94
[2021-07-21] MEDS: ENOXAPARIN INJ 40 MG/0.4 ML SYR SQ SCH (20:06)
[2021-07-21] MEDS: MELATONIN 3 MG TAB PO SCH (20:07)
[2021-07-21] MEDS: SERTRALINE HCL 100 MG TABLET PO SCH (20:08)
[2021-07-22] MEDS: LEVOTHYROXINE SODIUM 125 MCG TABLET PO SCH (06:14)
[2021-07-22] MEDS: KETOROLAC TROMETHAMINE 15 MG/ML VIAL IV PRN (06:57)
[2021-07-22] MEDS: INSULIN ASPART PER UNIT SC SCH (08:18)
[2021-07-22] MEDS: ACETAMINOPHEN 500 MG TAB PO PRN (08:18)
[2021-07-22] MEDS: ATENOLOL 25 MG TABLET PO SCH (08:25)
[2021-07-22] MEDS: DOXYCYCLINE HYCLATE 100 MG CAP PO SCH (08:25)
[2021-07-22] MEDS: LOSARTAN POTASSIUM 25 MG TAB PO SCH (08:26)
[2021-07-22] MEDS: PANTOprazole 40 MG TAB PO SCH (08:26)
[2021-07-22] MEDS: FERROUS SULFATE 325 MG TAB PO SCH (08:26)
[2021-07-22] MEDS: POLYETHYLENE (MIRALAX) 17 GM PACK PO SCH (08:26)
--- NOTE | 2021-07-22 10:09 | Discharge Summary ---
Date of Service July 22, 2021 Admission HPI Per Admitting Provider CHIEF COMPLAINT: Status post fall and left hip fracture. HISTORY OF PRESENT ILLNESS: This 85-year-old female has past medical history significant for hypertension, hyperlipidemia, chronic kidney disease stage III, hypothyroidism, obstructive sleep apnea, not on CPAP, history of cerebral aneurysm, AVM of proximal jejunum, esophagitis, chronic Jason ulcer, stress and urge incontinence, hiatal hernia, osteoporosis, macular degeneration, panic disorder, depression, history of MSSA bacteremia, presents with fall and left hip fracture. The patient in February had a fall. At that time, she had a left tibial plateau fracture, status post open reduction and internal fixation. At that time, hospital stay was complicated by infection of the surgical site, status post I and D and was treated with 6 weeks of IV daptomycin and indefinite doxycycline. Currently, the patient lives alone at home, walks with a walker. Son lives about 2 minutes away. The patient was trying to getting her medication when she had a mechanical fall on the left side. Son found her sitting on the chair and she was brought in here and found to have a left hip fracture. Currently, seems somewhat dry, but resting comfortably, tachycardic. When she fell, she did not hit her head and no loss of consciousness. Denies any headache. No dizziness, no blurred visions, no earache, no runny nose, no sore throat, no cough, no fever, no chills, no chest pain, no shortness of breath, no nausea, no vomiting, no abdominal pain. Normal bowel and bladder movements. Denies any blood in stool or black stools. Denies any burning micturition. Appetite is okay. No difficulty swallowing. ALLERGIES: STATINS AND CEFAZOLIN. PAST MEDICAL HISTORY: As mentioned above. PAST SURGICAL HISTORY: Right knee arthroplasty, colonoscopy, colonoscopy with biopsy, cystoscopy, EGDs, EGD with biopsy, right knee arthroscopy, appendectomy, complete thyroidectomy, cataract surgery, repair of right condylar knee fracture. MEDICATIONS: The patient is on Tylenol Extra Strength 1000 mg p.o. q.8 hours p.r.n., doxycycline 100 mg p.o. daily, levothyroxine 125 mcg p.o. daily, losartan 25 mg p.o. a.m., melatonin 5 mg p.o. at bedtime p.r.n., Protonix 40 mg p.o. b.i.d., sertraline 100 mg p.o. at bedtime. FAMILY HISTORY: Significant for maternal grandmother had cancer; daughter has diabetes; mother had diabetes; sister has diabetes; mother had heart disorder, hypertension; father had interstitial lung disease. SOCIAL HISTORY: Lives alone. No alcohol, no tobacco use, no drug use. REVIEW OF SYSTEMS: As per HPI. Rest of the review of systems is negative. Admission Exam Per Admitting Provider GENERAL: The patient is old and frail, not in acute distress. VITAL SIGNS: Temperature 36.5, pulse 128, respiratory rate 16, blood pressure 177/95, oxygen 95% on room air. HEENT: Pupils equal, round and reactive to light. Oral mucosa dry. NECK: No JVD, no neck masses. CARDIOVASCULAR: S1 and S2 heard. Tachycardia. No murmurs. RESPIRATORY SYSTEM: Normal AP diameter. No accessory muscle use. No wheezing, no crackles. ABDOMEN: Soft, bowel sounds present, nontender, no distention. CENTRAL NERVOUS SYSTEM: Alert and oriented. Speech is clear. No facial droop. Obeys simple commands. Moves extremities. EXTREMITIES: Left lower extremity is shortened and externally rotated. No edema, no erythema seen. Principal Diagnosis Left hip fracture status post repair Acute on chronic anemia, secondary to postoperative blood loss. Discharge Exam GENERAL: Alert but oriented x2. NAD, on RA. HEENT: No pallor, no icterus. Pupils equal, round and reactive to light. Oral mucosa moist. NECK: No JVD, no neck masses. HEART: S1 and S2 heard. Regular rate and rhythm. No murmur, no gallop. RESPIRATORY SYSTEM: Normal AP diameter. No accessory muscle use. No wheezing, no crackles. ABDOMEN: Soft, bowel sounds present, nontender, no distention. CENTRAL NERVOUS SYSTEM: No facial droop. Speech is clear. Obeys simple commands. Moves extremities. EXTREMITIES: No edema, no erythema seen. Left hip with clean dressing without soakage noted. Wound examined, with tito and healing good. Discharge Data Allergies Allergy/AdvReac Type Severity Reaction Status Date / Time [id number] Reductase AdvReac Intermediate MUSCLE Verified 07/13/21 18:37 Inhibitor ACHES-ELEVATED [Cyfmmls-Bqj-Wez Reductase CK WITH Inhibitor] LIPITOR PER HISTORY cefazolin [From Ancef] AdvReac Mild rash on Verified 07/13/21 18:37 abdomen Consultations 07/13/21 19:47 Consult Orthopedic Surgery Routine 07/13/21 19:53 ED Decision to Admit Stat Procedures Performed Operation Date: 07/14/21 11:10 Actual Procedures p Left Hip Intertrochanteric Nail Long(Left) - Severo Smith MD Ordered Studies 07/13/21 18:10 CT head/brain wo con Stat 07/13/21 21:05 CT hip LT wo con Urgent 07/14/21 FL hip LT 2-3V Routine 07/17/21 00:39 US venous doppler LE LT Urgent Hospital Course (1) Status post-operative repair of hip fracture: 85 yo F was managed for the following: (1) Hip fracture, left: #. Fall Plan: Mechanical fall with left hip fracture Status post left hip intertrochanteric nail placement on 07/14/2021 Appreciate Ortho input and recommendation Mobility instruction per Ortho as in DC plan. Can use OTC extra strength tylenol and lidoderm patch for pain control Continue with supportive management. PT/OT. #. Acute blood loss anemia on anemia of chronic disease Hemoglobin before surgery was 10.5 and went down to 7.7 as of 07/15/2021 We will monitor CBC and transfuse if hemoglobin drops below 7, hemoglobin 6.9 on 07/16, s/p 1 unit PRBC transfusion Monitor hemoglobin daily and as needed. Hb has been stable #. Acute metabolic encephalopathy Multifactorial-recent surgery, UTI, pain medications and anesthetic agents are likely agents to blame Use minimal narcotics, lidoderm patch and tylenol for pain. Better, except to stabilize once outside of hospital environment. Continue to monitor. #. Prior wound infection following surgery Required intravenous daptomycin for a long time and was on doxycycline. Completed the course. Intravenous daptomycin has been started by orthopedic surgeon --> DC'd 07/17 Will resume doxy for chr suppressive therapy 07/17. (4) Presumed UTI (urinary tract infection): Plan: UA suggestive of infection, received IV ceftriaxone Urine culture came back negative, antibiotics discontinued. #. Other chronic medical conditions: Esophagitis on PPI, hypothyroidism, hypertensive heart disease, panic disorder, depression, sleep apnea on oxygen at bedtime Continue with/resume home medication as and when appropriate. Continue with PPI. CODE STATUS Full Patient being discharged to acute rehab with following instruction at the point of discharge: Follow-up with your primary care physician within a week time. Continue with physical therapy, mobility instruction as per orthopedics. Follow-up with orthopedics on July 29 as scheduled. You can take extra strength Tylenol [id number] for pain management. You can use Lidoderm patch for your pain control, try to avoid narcotics/tramadol for fear of worsening confusion. Take medications as prescribed. Total Time Total Time Spent Total Time Spent (In Minutes): 35 Discharge Plan Discharge Items Patient Disposition: Transfer Assisted Fac Reason For Visit: FALL, HIP PAIN Discharge Diagnosis: Left hip fracture status post repair Acute on chronic anemia, secondary to postoperative blood loss. Activity: As commented below Non-emergency contact: Primary Care Provider Call non-emergency contact if: you have any medication questions, your symptoms worsen, your pain is not controlled and your temperature is above 101 Follow-up/Referrals: Jasbir Cason, [Primary Care Provider] - Diet: Heart Healthy Diet Texture: Easy to Chew [place]rol[place] Attending Provider Instructions: Follow-up with your primary care physician within a week time. Continue with physical therapy, mobility instruction as per orthopedics. Follow-up with orthopedics on July 29 as scheduled. You can take extra strength Tylenol [id number] for pain management. You can use Lidoderm patch for your pain control, try to avoid narcotics/tramadol for fear of worsening confusion. Take medications as prescribed. [employer] Provider Instructions: May be out of bed with assistance and use of a walker. May WBAT LLE. Allowed for full ROM left hip, left knee and left ankle. Have patient get out of bed to sit at chair for awhile, maybe out of bed for meals. Pain control with p.o. medication DVT prophylaxis With Lovenox, DOMENICA stockings and SCDs Ice with easy wrap to left hip. Keep dressings intact, redress as needed using sterile 4x4's and Tegaderm Will need PT/OT at SNF Keep heels off bed. Pillow between knees or under left leg for elevation. Follow up at [facility] on July 29, 2021 @ 3:00 PM with Lissett Cuenca PA-C With questions contact the clinic at [phone]. Pending Studies at Discharge: No Stand-Alone Forms: My [facility] Skilled Items Patient informed of condition?: Yes DNR: No Discharge Level of Care: Acute rehab Communicable Disease: No Discharge Prognosis: Stable Lines: None Urinary Catheter: No Medications and DC Order Prescriptions: New lidocaine [Lidoderm] 5 % adhesive patch,medicated 1 patch topical DAILY Qty: 15 RF: 0 Continued pantoprazole 40 mg Tablet,Delayed Release (Dr/Ec) 40 mg PO BID RF: 0 levothyroxine 125 mcg tablet 125 mcg PO DAILYBB RF: 0 atenolol 25 mg tablet 25 mg PO DAILY RF: 0 losartan 25 mg tablet 25 mg PO QAM RF: 0 sertraline 100 mg tablet 100 mg PO HS RF: 0 melatonin 5 mg Tablet 5 mg PO HS PRN (Reason: Insomnia) RF: 0 acetaminophen [Tylenol Extra Strength] 500 mg Tablet 1,000 mg PO Q8 PRN (Reason: fever or pain) Qty: 30 RF: 0 doxycycline hyclate 100 mg capsule 100 mg PO DAILY RF: 0 ferrous sulfate 325 mg (65 mg iron) Tablet 325 mg PO BID RF: 0 Discontinued daptomycin 500 mg recon soln 400 mg IV DAILY Qty: 1 RF: 0 Discharge Orders: Discharge Order (Routine); Ordered 07/22/21 Ordered By: Quinten Lovett/Other Patient Handouts: A1C Admission Data Admit Date/Time: 07/13/21 20:42 Attending Provider: Quinten Banegas Admit Provider: Chalo Zepeda Primary Care Provider: Jasbir Cason Other Providers: Rigoberto Bailon [place] ; [place] ; Jeremi Funes ; Chalo Zepeda
== END 2021-07-22 11:36 | DRG 480 ==
LOC: ED 18:04 → SUATTDRO 20:42 → 2W 20:42
DX: Z88.8 Allergy status to other drugs, medicaments and biological substances; Z79.890 Hormone replacement therapy; E86.0 Dehydration; Z79.899 Other long term (current) drug therapy; W19.XXXA Unspecified fall, initial encounter; F32.A Depression, unspecified; E03.9 Hypothyroidism, unspecified; D62 Acute posthemorrhagic anemia; G47.33 Obstructive sleep apnea (adult) (pediatric); K20.90 Esophagitis, unspecified without bleeding; F41.0 Panic disorder [episodic paroxysmal anxiety]; N18.30 Chronic kidney disease, stage 3 unspecified; G93.41 Metabolic encephalopathy; D50.0 Iron deficiency anemia secondary to blood loss (chronic); E78.5 Hyperlipidemia, unspecified; I13.10 Hypertensive heart and chronic kidney disease without heart failure, with stage 1 through stage 4 chronic kidney disease, or unspecified chronic kidney disease; S72.142A Displaced intertrochanteric fracture of left femur, initial encounter for closed fracture

== ENCOUNTER 2023-07-14 23:57 | Inpatient (IN) ==
--- NOTE | 2023-07-15 00:04 | Emergency Department Note ---
Impression & Plan Nausea & vomiting, Ambulatory dysfunction, Generalized weakness ED Provider Note HISTORY OF PRESENT ILLNESS: Patient is an 87-year-old female presenting with lower abdominal pain, vomiting and confusion. Patient was seen yesterday for back pain and started on tramadol. Son called 911 tonight because the patient took the medication and then became acutely altered and started vomiting complaining of belly pain. On arrival to the ER, the patient does reports she is still nauseous. She is alert to person. She is complaining of lower abdominal pain and stated that started earlier this evening. Denies any diarrhea. Denies any chest pain or shortness of breath. Denies any fevers. ROS: as above PHYSICAL EXAM: Constitutional: Patient appears in no acute distress. HENT: Head: Normocephalic and atraumatic. Eyes: EOMI, PERRL Mouth/Throat: Mucous membranes moist. Neck: Trachea midline. Neck supple. Cardiovascular: RRR, No murmurs, rubs or gallops. Intact distal pulses. Pulmonary/Chest: No respiratory distress. Breath sounds clear and equal bilaterally. No wheezes or rales. Abdominal: Abdomen soft, no tenderness, rebound or guarding. Musculoskeletal: No edema, tenderness or deformity noted. Skin: Warm and dry. No rash, erythema, pallor or cyanosis Psychiatric: Appropriate mood and affect for situation. Neurological: Alert and keenly responsive. CN II-XII grossly intact, moving all extremities equally and fully. MDM: - Vitals signs showed hypertension. - History obtained via patient and EMS. History as above - Chronic conditions affecting care: HTN; CKD; HLD; hypothyroidism - Differential diagnoses include, but are not limited to: ACS; pneumonia; UTI; viral syndrome; dehydration - Order placed for continuous cardiac monitoring. At this time, monitor showed rate of 70 bpm with normal sinus rhythm, per my interpretation. - External medical records reviewed. EMS run sheet was reviewed. Patient was given 4 mg of IV Zofran prehospital. - EKG interpreted by myself showed normal sinus rhythm. Rate 93 bpm. QT 352. No acute ischemic changes. - Laboratory workup interpreted by myself showed normal WBC; stable electrolytes; normal troponin; elevated lipase (89) - UA negative for infection - COVID/flu/RSV negative - CT abdomen/pelvis with IV contrast showed trace left pleural effusion and a large hiatal hernia containing majority of the stomach per radiology - Patient given 1L NS and 4 mg IV zofran. On reassessment, complaining of nausea. Given an additional 500 cc NS and 4 mg IV zofran - Discussed case with patient's grandson, Rommel, via phone call. Family expresses concern about patient's ability to be at home with them. Discussed coming into the hospital for potential placement with the patient and she was agreeable. - Discussion was had with case fitter about patient's case and need for admission - Hospitalist consulted for admission - [facility] ASSESSMENT AND PLAN: Diagnosis: Nausea and vomiting; generalized weakness; ambulatory dysfunction Plan: Admit Past Med/Surg History Medical History (Updated 07/15/23 @ 03:24 by Sumi Ayala MD) Bacteremia Infective endocarditis Leukocytosis Acute on chronic renal insufficiency Sepsis Acute kidney injury superimposed on chronic kidney disease Infection Sepsis PSVT (paroxysmal supraventricular tachycardia) Left leg swelling Fall Thyroid cancer Depression MERY (obstructive sleep apnea) HLD (hyperlipidemia) HTN (hypertension) CKD (chronic kidney disease), stage III Cerebral aneurysm "[facility] 07/22/13 3 mm 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 aneurysm 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" Hypothyroidism Hypertensive heart disease History of papillary adenocarcinoma of thyroid Esophagitis (12/26/10) Panic disorder (12/26/10) Surgical History (Updated 07/15/21 @ 10:08 by Derick Cuenca PA-C) Status post thyroidectomy Status post appendectomy Family History Other Diabetes Hypertension Social History Smoking Status: Never smoker Second Hand Exposure: No; Do You Dip or Chew Tobacco: No; Hx Alcohol Use: No Hx Substance Use: No Preferred Language: [place]er Communication Ability: Effective Ambulance Driver Paramedic Required: No Beliefs That Will Affect Care: None marital status: / Current Living Situation: Alone Current Living Situation Comment: lives with grandsom How many Children do You have: 3 Feels Safe at Home: Yes Assistive Devices: Walker Allergies Allergies Allergy/AdvReac Type Severity Reaction Status Date / Time simvastatin AdvReac Intermediate Muscle Pain Verified 07/15/23 03:09 [id number]-[id number] Reductase AdvReac Intermediate MUSCLE Verified 07/15/23 03:09 Inhibitor ACHES-ELEVATED [Tiucjry-Kpn-Frg Reductase CK WITH Inhibitor] LIPITOR PER HISTORY cefazolin [From Anc] AdvReac Mild rash on Verified 07/15/23 03:09 abdomen Home Meds Home Medications Medication Instructions Recorded Confirmed pantoprazole 40 mg tablet,delayed 40 mg PO BID 10/07/18 07/15/23 release atenolol 25 mg tablet 25 mg PO DAILY 01/06/21 07/15/23 losartan 25 mg tablet 25 mg PO QAM 02/04/21 07/15/23 sertraline 100 mg tablet 100 mg PO QAM 02/04/21 07/15/23 doxycycline hyclate 100 mg capsule 100 mg PO DAILY 07/13/21 07/15/23 levothyroxine 112 mcg tablet 112 mcg PO DAILYBB 07/13/23 07/15/23 Previous Rx's Medication Instructions Recorded acetaminophen 500 mg tablet 1,000 mg (2 x 500 mg) PO Q8 PRN 02/28/21 (Tylenol Extra Strength) fever or pain #30 tabs tramadol 25 mg tablet 25 mg PO Q6H PRN pain #20 tabs 07/13/23 Results & Data (ED) Vital Signs Vital Signs - 24 hr 07/15/23 00:11 07/15/23 00:24 07/15/23 00:33 Temperature 36.7 C Temperature Source Oral Pulse Rate 90 93 H Pulse Rate [Apical] 63 Respiratory Rate 16 16 Respiratory Effort / Characteristics Non-Labored Spontaneous Respiratory Depth Normal Respiratory Pattern Regular Blood Pressure 183/109 H Blood Pressure [Right Arm] 175/105 H Blood Pressure Mean 133 Blood Pressure Mean [Right Arm] 128 Pulse Oximetry 97 97 Oxygen Delivery Method Room Air Room Air Sepsis Recent Fever Within 48 Hours No Sepsis New/Unexplained Change in Mental Status No Sepsis Action Taken by Nursing No Action Required 07/15/23 01:18 07/15/23 02:00 Temperature Temperature Source Pulse Rate Pulse Rate [Apical] 66 70 Respiratory Rate 20 16 Respiratory Effort / Characteristics Respiratory Depth Respiratory Pattern Blood Pressure Blood Pressure [Right Arm] 178/88 H 166/92 H Blood Pressure Mean Blood Pressure Mean [Right Arm] 118 116 Pulse Oximetry 94 96 Oxygen Delivery Method Room Air Room Air Sepsis Recent Fever Within 48 Hours Sepsis New/Unexplained Change in Mental Status Sepsis Action Taken by Nursing Laboratory Data 07/15/23 00:20 07/15/23 00:20 Lab Results 07/15/23 07/15/23 Range/Units 00:20 01:45 WBC 5.49 (4.8-10.8) K/ul RBC 4.34 (4.20-5.40) M/uL Hgb 12.2 (12.0-16.0) g/dl Hct 38.1 (37.0-47.0) % MCV 87.8 (80.0-100.0) fL MCH 28.1 (25.0-34.0) pg MCHC 32.0 (32.0-36.0) g/dL RDW Std Deviation 51.3 H (36.4-46.3) fL RDW Coeff of Brandan 15.8 H (11.5-14.5) % Plt Count 282 (130-400) K/uL MPV 9.4 (9.4-12.4) fL Immature Gran % (Auto) 0.2 % Neut % (Auto) 60.6 % Lymph % (Auto) 25.1 % [place] % (Auto) 7.3 % Eos % (Auto) 6.4 % Baso % (Auto) 0.4 % Neut # (Auto) 3.33 (1.40-6.50) K/uL Lymph # (Auto) 1.38 (1.20-3.40) K/uL [place] # (Auto) 0.40 (0.11-0.59) K/uL Eos # (Auto) 0.35 (0.00-0.50) K/uL Baso # (Auto) 0.02 (0.00-0.20) K/uL Immature Gran # (Auto) 0.01 (0.01-0.20) K/uL Sodium 137 (136-145) mmol/L Potassium 3.8 (3.5-5.1) mmol/L Chloride 106 (98-107) mmol/L Carbon Dioxide 23 (21-32) mmol/L Anion Gap 8 (3-11) BUN 17 (6-23) mg/dl Creatinine 0.87 (0.6-1.2) mg/dl Est Cr Clr Drug Dosing 47.3 ml/min Est GFR ( Amer) 70.4 ml/min Est GFR (Non-Af Amer) 60.7 ml/min BUN/Creatinine Ratio 19.5 (10-20) Glucose 110 H (70-99(Fasting)) mg/dl Calcium 9.3 (8.6-10.3) mg/dl Total Bilirubin 0.5 (0.2-1.0) mg/dl AST 26 (13-39) U/L ALT 13 (7-52) U/L Alkaline Phosphatase 73 (34-104) U/L Troponin I High Sens 6.9 (0-14) pg/ml Total Protein 6.6 (6.0-8.3) gm/dl Albumin 4.0 (3.4-5.0) gm/dl Globulin 2.6 (2.5-4.0) gm/dl Albumin/Globulin Ratio 1.5 (0.9-2) Lipase 89 H (11-82) U/L Urine Color Yellow Urine Appearance Clear (Clear) Urine pH 7.0 (4.5-7.5) Ur Specific [place] 1.027 (1.000-1.030) Urine Protein Negative (Negative) Urine Glucose (UA) Negative (Negative) Urine Ketones Negative (Negative) Urine Blood Negative (Negative) Urine Nitrite Negative (Negative) Urine Bilirubin Negative (Negative) Urine Urobilinogen Negative (Negative) Ur Leukocyte Esterase 2+ H (Negative) Urine WBC (Auto) 10-30 H (0-5) /hpf Urine RBC (Auto) 0-4 (0-4) /hpf U Hyaline Cast (Auto) 1-5 (0-5) /lpf U Epithel Cells (Auto) >30 H (0-5) /lpf Urine Bacteria (Auto) Negative (Negative) SARS-CoV-2 (PCR) NEGATIVE (Negative) Influenza Type A (PCR) Negative (Neg) Influenza Type B (PCR) Negative (Neg) RSV (RT-PCR) Negative (Neg) Administered Medications Discontinued Medications Sodium Chloride (Nss) 1,000 mls @ 999 mls/hr IV .Q1H1M ONE Stop: 07/15/23 01:08 Last Infusion: 07/15/23 01:20 Dose: Infused Documented By: Admin: 07/15/23 00:19 Dose: 999 mls/hr Documented By: JOE Sodium Chloride (Nss) 500 mls @ 999 mls/hr IV .Q31M ONE Stop: 07/15/23 01:50 Last Infusion: 07/15/23 01:59 Dose: Infused Documented By: Admin: 07/15/23 01:28 Dose: 999 mls/hr Documented By: SINDHU Ioversol (Optiray 320 100ml) 91 ml IV ONCE ONE Stop: 07/15/23 01:11 Last Admin: 07/15/23 01:11 Dose: 91 ml Documented By: JEYSON Ondansetron HCl (Ondansetron Inj 2 Mg/Ml 2 Ml Vial) 4 mg IV NOW STA Stop: 07/15/23 01:21 Last Admin: 07/15/23 01:29 Dose: 4 mg Documented By: SINDHU Ondansetron HCl (Ondansetron Inj 2 Mg/Ml 2 Ml Vial) 4 mg IV NOW STA Stop: 07/15/23 03:19 Last Admin: 07/15/23 03:19 Dose: 4 mg Documented By: RUBEN Imaging Data Radiologist's Impression: Abdomen/Pelvis CT 07/15/23 00:09 Exam(s): CT ABDOMEN + PELVIS With Contrast IV Amt: 91 ml opti 320 EXAM: CT Abdomen and Pelvis With Intravenous Contrast CLINICAL HISTORY: Reason for exam: RLQ abdominal pain; vomiting. TECHNIQUE: Axial computed tomography images of the abdomen and pelvis with intravenous contrast. CTDI is 15.01 mGy and DLP is 679.43 mGy-cm. Automated exposure control was utilized for the study. A dose lowering technique was utilized adhering to the principles of ALARA. CONTRAST: Patient received 91 ml opti 320 of IV contrast COMPARISON: No relevant prior studies available. FINDINGS: Lung bases: Unremarkable. No mass. No consolidation. Pleural space: Trace LEFT pleural effusion. Mediastinum: Large hiatal hernia which contained the majority of the stomach. ABDOMEN: Liver: Small hepatic cystic lesions. Gallbladder and bile ducts: Small gallstone. No ductal dilation. Pancreas: Unremarkable. No mass. No ductal dilation. Spleen: Unremarkable. No splenomegaly. Adrenals: Unremarkable. No mass. Kidneys and ureters: Renal cyst. No hydronephrosis. Stomach and bowel: Diverticulosis, without acute diverticulitis. No small bowel obstruction. No free intraperitoneal air. PELVIS: Appendix: No findings to suggest acute appendicitis. Bladder: Decompression of my bladder. Reproductive: Unremarkable as visualized. ABDOMEN and PELVIS: Intraperitoneal space: Unremarkable. No free air. No significant fluid collection. Bones/joints: Degenerative changes of the spine. LEFT hip ORIF. No acute fracture. No dislocation. Soft tissues: Unremarkable. Vasculature: Atherosclerotic changes of the aorta. No abdominal aortic aneurysm. Lymph nodes: Unremarkable. No enlarged lymph nodes. IMPRESSION: 1. Trace LEFT pleural effusion. 2. Large hiatal hernia which contained the majority of the stomach. 3. Small gallstone. 4. LEFT hip ORIF. 5. Diverticulosis, without acute diverticulitis. No small bowel obstruction. No free intraperitoneal air. Electronically signed by: Nuno Rader MD 07/15/23 01:38 AM Discharge Plan Visit Data Chief Complaint: Back Injury/Pain Stated Complaint: BACK PAIN, HERE FOR SAME 2 DAYS AGO ED Provider: Sumi Ayala Discharge Problem: Nausea & vomiting, Ambulatory dysfunction, Generalized weakness Forms Stand Alone Forms: [facility] Prescriptions Prescriptions: No Action pantoprazole 40 mg Tablet,Delayed Release (Dr/Ec) 40 mg PO BID Rx Instructions: 07/14/22 PT HAS NOT TAKEN THIS MED FOR APPROX 7 MONTHS DUE TO LACK OF RESOURCES FOR GETTING TO SEE HER PRIMARY PHYSICIAN AND REFILLING THE PRESCRIPTION. atenolol 25 mg tablet 25 mg PO DAILY Rx Instructions: 07/15/23 PT HAS NOT TAKEN THIS MED FOR APPROX 8 MONTHS DUE TO LACK OF RESOURCES FOR SEEING HER PRIMARY PHYSICIAN AND OBTAINING THE PRESCRIPTION. losartan 25 mg tablet 25 mg PO QAM Rx Instructions: 07/15/23 PT HAS NOT TAKEN THIS MED FOR APPROX 7 MONTHS DUE TO LACKNOF RESOURCES FOR GETTING TO SEE HER PRIMARY PHYSICIAN AND REFILLING THE PRESCRIPTION. sertraline 100 mg tablet 100 mg PO QAM Rx Instructions: 07/15/23 PT HAS NOT TAKEN THIS MED FOR APPROX 7 MONTHS DUE TO A LACK OF RESOURCES IN GETTING TO SEE HER PRIMARY PHYSICIAN AND REFILLING THE PRESCRIPTION. acetaminophen [Tylenol Extra Strength] 500 mg Tablet 1,000 mg PO Q8 PRN (Reason: fever or pain) Qty: 30 0RF doxycycline hyclate 100 mg capsule 100 mg PO DAILY Rx Instructions: 07/15/23 PTN HAS NOT TAKEN THIS MED FOR APPROX 6 MONTHS DUE TO LACK OF RESOURCES FOR SEEING HER PRIMARY PHYSICIAN AND OBTAINING HER PRESCRIPTION. levothyroxine 112 mcg Tablet 112 mcg PO DAILYBB Rx Instructions: 07/15/23 PT HAS NOT TAKEN THIS MED FOR APPROX 7 MONTHS DUE TO LACK OF RESOURCES FOR GETTING TO SEE HER PRIMARY PHYSICIAN AND REFILLING THE PRESCRIPTION. tramadol 25 mg tablet 25 mg PO Q6H PRN (Reason: pain) Qty: 20 0RF Rx Instructions: 07/15/23 PT HAS NOT TAKEN THIS MED IN APPROX 7 MONTHS DUE TO A LACK OF RESOURCES IN GETTING TO SEE HER PRIMARY PHYSICIAN AND REFILLING THE PRESCRIPTION. Referrals Referrals: Jasbir Cason, [Primary Care Provider] -
[2023-07-15] MEDS: SODIUM CHLORIDE 0.9% 1,000 ML IV ONE (00:19)
[2023-07-15 00:42] LABS: Basophils # (auto) 0.02 K/uL (0.00-0.20); Basophils % (auto) 0.4 %; Eosinophils # (auto) 0.35 K/uL (0.00-0.50); Eosinophils % (auto) 6.4 %; Hematocrit (blood only) 38.1 % (37.0-47.0); Hemoglobin 12.2 g/dl (12.0-16.0); Immature Granulocytes # (auto) 0.01 K/uL (0.01-0.20); Immature Granulocytes % (auto) 0.2 %; Lymphocytes # (auto) 1.38 K/uL (1.20-3.40); Lymphocytes % (auto) 25.1 %; Mean Corpuscular Hemoglobin 28.1 pg (25.0-34.0); Mean Corpuscular Volume 87.8 fL (80.0-100.0); Mean Platelet Volume 9.4 fL (9.4-12.4); Monocytes % (auto) 7.3 %; Neutrophils # (auto) 3.33 K/uL (1.40-6.50); Neutrophils % (auto) 60.6 %; Platelet Count 282 K/uL (130-400); RDW Coefficient of Variation 15.8 % (11.5-14.5); RDW Standard Deviation 51.3 fL (36.4-46.3); Red Blood Count 4.34 M/uL (4.20-5.40); White Blood Count 5.49 K/ul (4.8-10.8)
[2023-07-15 00:52] LABS: Albumin Globulin Ratio 1.5 (0.9-2); BUN Creatinine Ratio 19.5 (10-20); Bilirubin,Total 0.5 mg/dl (0.2-1.0); Calcium 9.3 mg/dl (8.6-10.3); Creatinine Clr Calc Pharmacy 47.3 ml/min; Est GFR (African American) 70.4 ml/min; Est GFR (Non-African American) 60.7 ml/min; Globulin 2.6 gm/dl (2.5-4.0); Potassium 3.8 mmol/L (3.5-5.1); Total Protein 6.6 gm/dl (6.0-8.3)
[2023-07-15 01:00] LABS: Troponin I High Sensitivity 6.9 pg/ml (0-14)
[2023-07-15 01:09] LABS: Influenza A virus by PCR Negative (Neg); Influenza B virus by PCR Negative (Neg); RSV by PCR Negative (Neg); SARS CoV2 RNA(COVID-19) Ceph NEGATIVE (Negative)
[2023-07-15] MEDS: OPTIRAY 320 100ml IV ONE (01:11)
[2023-07-15] MEDS: SODIUM CHLORIDE 0.9% 500 ML IV ONE (01:28)
[2023-07-15] MEDS: ONDANSETRON INJ 2 MG/ML 2 ML VIAL IV STA ×2 (01:29→03:19)
--- NOTE | 2023-07-15 01:39 | CT Scan Report ---
Exam(s): CT ABDOMEN + PELVIS With Contrast IV Amt: 91 ml opti 320 EXAM: CT Abdomen and Pelvis With Intravenous Contrast CLINICAL HISTORY: Reason for exam: RLQ abdominal pain; vomiting. TECHNIQUE: Axial computed tomography images of the abdomen and pelvis with intravenous contrast. CTDI is 15.01 mGy and DLP is 679.43 mGy-cm. Automated exposure control was utilized for the study. A dose lowering technique was utilized adhering to the principles of ALARA. CONTRAST: Patient received 91 ml opti 320 of IV contrast COMPARISON: No relevant prior studies available. FINDINGS: Lung bases: Unremarkable. No mass. No consolidation. Pleural space: Trace LEFT pleural effusion. Mediastinum: Large hiatal hernia which contained the majority of the stomach. ABDOMEN: Liver: Small hepatic cystic lesions. Gallbladder and bile ducts: Small gallstone. No ductal dilation. Pancreas: Unremarkable. No mass. No ductal dilation. Spleen: Unremarkable. No splenomegaly. Adrenals: Unremarkable. No mass. Kidneys and ureters: Renal cyst. No hydronephrosis. Stomach and bowel: Diverticulosis, without acute diverticulitis. No small bowel obstruction. No free intraperitoneal air. PELVIS: Appendix: No findings to suggest acute appendicitis. Bladder: Decompression of my bladder. Reproductive: Unremarkable as visualized. ABDOMEN and PELVIS: Intraperitoneal space: Unremarkable. No free air. No significant fluid collection. Bones/joints: Degenerative changes of the spine. LEFT hip ORIF. No acute fracture. No dislocation. Soft tissues: Unremarkable. Vasculature: Atherosclerotic changes of the aorta. No abdominal aortic aneurysm. Lymph nodes: Unremarkable. No enlarged lymph nodes. IMPRESSION: 1. Trace LEFT pleural effusion. 2. Large hiatal hernia which contained the majority of the stomach. 3. Small gallstone. 4. LEFT hip ORIF. 5. Diverticulosis, without acute diverticulitis. No small bowel obstruction. No free intraperitoneal air. Electronically signed by: Nuno Rader MD 07/15/23 01:38 AM
[2023-07-15 01:58] LABS: Appearance Urine Clear (Clear); Bacteria Urine Automated Negative (Negative); Bilirubin Urine Negative (Negative); Blood Urine Negative (Negative); Color Urine Yellow; Epithelial Cell Urine Auto >30 /lpf (0-5); Glucose Urine UA Negative (Negative); Ketones Urine Negative (Negative); Leukocyte Esterase Urine 2+ (Negative); Nitrite Urine Negative (Negative); Protein Urine Negative (Negative); RBC Urine Automated 0-4 /hpf (0-4); Specific Gravity Urine 1.027 (1.000-1.030); Urobilinogen Urine Negative (Negative)
[2023-07-15] MEDS ORDERED: PROMETHAZINE HCL 6.25 MG in SODIUM CHLORIDE 0.9% 50 ML IV PRN (03:46)
[2023-07-15 03:47] LABS: Magnesium 1.7 mg/dl (1.7-2.4)
--- NOTE | 2023-07-15 03:47 | History & Physical Report ---
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 (No recent follow-up with [facility] [place] [facility] thyroid cancer status post surgery postsurgical hypothyroidism, euthyroid as of recent outpatient TSH chronic anemia, hemoglobin at baseline prediabetes, hemoglobin A1c of 5.9 last November 2022 Medical telemetry CS, Heidi in light of microbiologic history (Enterococcus, enteric GNRs on review) Analgesia Titrate home BP meds Add tramadol to ADR list MRI lumbar spine Orthopedic spine consult contingent on MRI results DVT prophylaxis. SCDs for now until MRI results known Full code Patient's son requesting updates from providers. Mr. Julio Burnett, contact #[phone]. Text document was generated using [employer] voice recognition software. It may contain grammatical or spelling errors. Kindly contact undersigned for clarification of any documentation item in question. History of Present Illness Chief Complaint: Back pain, nausea, vomiting Primary Care Provider: Jasbir Cason, History obtained from patient, family, and records. Patient is a fair historian. Medical history significant for hypertension, hyperlipidemia, PVD, history cerebral aneurysm as per records, MERY not on CPAP as per records, GERD, thyroid cancer status post surgery, postsurgical hypothyroidism, anxiety/mood disorder. Last confinement July 2021 for left hip fracture status post surgery. Postop confusion noted attributed to UTI, pain medications. Patient noted worsening low back pain with hip radiation in the last week. No recollection of recent trauma, no fever, no chills. Denies incontinence symptoms. Patient consulted ER [address] imaging showed 1. Large hiatal hernia. Please note that there is thickening of the stomach within it supra diaphragmatic portion. Findings may be due to underdistention. Inflammatory changes are also possible. 2. Age indeterminate, but likely chronic, compression fractures of T9, L2, L3, and L5. Consider correlation with point tenderness. If there is further concern, consider MRI. 3. No other acute findings. Patient requested to be discharged home. Patient discharged home with tramadol prescription. Worsening back pain and spasms noted at home. Increased confusion after 1 dose of tramadol prescription. Patient denies headache, chest pain, SOB. Subsequent nausea, emesis symptoms. SBP 180s upon arrival at the ER. 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 Allergies Allergy/AdvReac Type Severity Reaction Status Date / Time simvastatin AdvReac Intermediate Muscle Pain Verified 07/15/23 03:09 Vothpdx-YTC-XoO Reductase AdvReac Intermediate MUSCLE Verified 07/15/23 03:09 Inhibitor ACHES-ELEVATED [Lkuhbil-Ppq-Utn Reductase CK WITH Inhibitor] LIPITOR PER HISTORY tramadol AdvReac Intermediate Confusion Verified 07/15/23 03:46 cefazolin [From Anc] AdvReac Mild rash on Verified 07/15/23 03:09 abdomen Home Medications Medication Instructions Recorded Confirmed Type pantoprazole 40 mg tablet,delayed 40 mg PO BID 10/07/18 07/15/23 History release atenolol 25 mg tablet 25 mg PO DAILY 01/06/21 07/15/23 History losartan 25 mg tablet 25 mg PO QAM 02/04/21 07/15/23 History sertraline 100 mg tablet 100 mg PO QAM 02/04/21 07/15/23 History acetaminophen 500 mg tablet 1,000 mg (2 x 500 mg) PO Q8 PRN 02/28/21 07/15/23 Rx (Tylenol Extra Strength) fever or pain #30 tabs doxycycline hyclate 100 mg capsule 100 mg PO DAILY 07/13/21 07/15/23 History levothyroxine 112 mcg tablet 112 mcg PO DAILYBB 07/13/23 07/15/23 History tramadol 25 mg tablet 25 mg PO Q6H PRN pain #20 tabs 07/13/23 07/15/23 Rx Past Med/Surg History Medical History (Updated 07/15/23 @ 08:56 by Hernando Loya MD) Bacteremia Infective endocarditis Leukocytosis Acute on chronic renal insufficiency Sepsis Acute kidney injury superimposed on chronic kidney disease Infection Sepsis PSVT (paroxysmal supraventricular tachycardia) Left leg swelling Fall Thyroid cancer Depression MERY (obstructive sleep apnea) HLD (hyperlipidemia) HTN (hypertension) CKD (chronic kidney disease), stage III Cerebral aneurysm "[facility] 07/22/13 3 mm fusiform aneurysm takeoff right [employer]" Hypothyroidism Hypertensive heart disease History of papillary adenocarcinoma of thyroid Esophagitis (12/26/10) Panic disorder (12/26/10) Surgical History (Updated 07/15/21 @ 10:08 by Derick Cuenca PA-C) Status post thyroidectomy Status post appendectomy Family History Other Diabetes Hypertension Social History Smoking Status: Never smoker Second Hand Exposure: No; Do You Dip or Chew Tobacco: No; Hx Alcohol Use: No Hx Substance Use: No Preferred Language: Korean Communication Ability: Effective Parent Partner Required: No Beliefs That Will Affect Care: None marital status: / Current Living Situation: Alone Current Living Situation Comment: lives with grandsom How many Children do You have: 3 Feels Safe at Home: Yes Assistive Devices: Walker Review of Systems Review of Systems: As per HPI, all other systems reviewed and negative Physical Exam Physical Exam: GENERAL: Coherent, uncomfortable, slightly irate, no respiratory distress SKIN: Normal color,, warm HEENT: [place] palpebral conjunctivae, no ptosis, dry buccal mucosa NECK : Supple, no tenderness CHEST : CTA, no tenderness HEART : RRR, no obvious murmurs ABDOMEN: Some distention, nontender BACK : Low back tenderness EXTREMITIES : No LE swelling, no LE tenderness, no other conspicuous deformities noted NEUROLOGIC : Coherent, no facial asymmetry, mild hearing impairment, gait and stance not assessed Results & Data Results & Data Vital Signs (Past 12 Hours) Vital Signs Temp Pulse Pulse Resp BP BP Pulse Ox 07/15/23 02:00 70 16 166/92 H 96 07/15/23 01:18 66 20 178/88 H 94 07/15/23 00:33 63 16 175/105 H 97 07/15/23 00:24 36.7 C 93 H 16 183/109 H 97 07/15/23 00:11 90 O2 Del Method 07/15/23 02:00 Room Air 07/15/23 01:18 Room Air 07/15/23 00:33 Room Air 07/15/23 00:24 Room Air 07/15/23 00:11 Laboratory Results Laboratory Results WBC 5.49 K/ul (4.8-10.8) 07/15/23 00:20 RBC 4.34 M/uL (4.20-5.40) 07/15/23 00:20 Hgb 12.2 g/dl (12.0-16.0) 07/15/23 00:20 Hct 38.1 % (37.0-47.0) 07/15/23 00:20 MCV 87.8 fL (80.0-100.0) 07/15/23 00:20 MCH 28.1 pg (25.0-34.0) 07/15/23 00:20 MCHC 32.0 g/dL (32.0-36.0) 07/15/23 00:20 RDW Std Deviation 51.3 fL (36.4-46.3) H 07/15/23 00:20 RDW Coeff of Brandan 15.8 % (11.5-14.5) H 07/15/23 00:20 Plt Count 282 K/uL (130-400) 07/15/23 00:20 MPV 9.4 fL (9.4-12.4) 07/15/23 00:20 Immature Gran % (Auto) 0.2 % 07/15/23 00:20 Neut % (Auto) 60.6 % 07/15/23 00:20 Lymph % (Auto) 25.1 % 07/15/23 00:20 [place] % (Auto) 7.3 % 07/15/23 00:20 Eos % (Auto) 6.4 % 07/15/23 00:20 Baso % (Auto) 0.4 % 07/15/23 00:20 Neut # (Auto) 3.33 K/uL (1.40-6.50) 07/15/23 00:20 Lymph # (Auto) 1.38 K/uL (1.20-3.40) 07/15/23 00:20 [place] # (Auto) 0.40 K/uL (0.11-0.59) 07/15/23 00:20 Eos # (Auto) 0.35 K/uL (0.00-0.50) 07/15/23 00:20 Baso # (Auto) 0.02 K/uL (0.00-0.20) 07/15/23 00:20 Immature Gran # (Auto) 0.01 K/uL (0.01-0.20) 07/15/23 00:20 Sodium 137 mmol/L (136-145) 07/15/23 00:20 Potassium 3.8 mmol/L (3.5-5.1) 07/15/23 00:20 Chloride 106 mmol/L (98-107) 07/15/23 00:20 Carbon Dioxide 23 mmol/L (21-32) 07/15/23 00:20 Anion Gap 8 (3-11) 07/15/23 00:20 BUN 17 mg/dl (6-23) 07/15/23 00:20 Creatinine 0.87 mg/dl (0.6-1.2) 07/15/23 00:20 Est Cr Clr Drug Dosing 47.3 ml/min 07/15/23 00:20 Est GFR ( Amer) 70.4 ml/min 07/15/23 00:20 Est GFR (Non-Af Amer) 60.7 ml/min 07/15/23 00:20 BUN/Creatinine Ratio 19.5 (10-20) 07/15/23 00:20 Glucose 110 mg/dl (70-99(Fasting)) H 07/15/23 00:20 Calcium 9.3 mg/dl (8.6-10.3) 07/15/23 00:20 Total Bilirubin 0.5 mg/dl (0.2-1.0) 07/15/23 00:20 AST 26 U/L (13-39) 07/15/23 00:20 ALT 13 U/L (7-52) 07/15/23 00:20 Alkaline Phosphatase 73 U/L (34-104) 07/15/23 00:20 Troponin I High Sens 6.9 pg/ml (0-14) 07/15/23 00:20 Total Protein 6.6 gm/dl (6.0-8.3) 07/15/23 00:20 Albumin 4.0 gm/dl (3.4-5.0) 07/15/23 00:20 Globulin 2.6 gm/dl (2.5-4.0) 07/15/23 00:20 Albumin/Globulin Ratio 1.5 (0.9-2) 07/15/23 00:20 Lipase 89 U/L (11-82) H 07/15/23 00:20 Urine Color Yellow 07/15/23 01:45 Urine Appearance Clear (Clear) 07/15/23 01:45 Urine pH 7.0 (4.5-7.5) 07/15/23 01:45 Ur Specific [place] 1.027 (1.000-1.030) 07/15/23 01:45 Urine Protein Negative (Negative) 07/15/23 01:45 Urine Glucose (UA) Negative (Negative) 07/15/23 01:45 Urine Ketones Negative (Negative) 07/15/23 01:45 Urine Blood Negative (Negative) 07/15/23 01:45 Urine Nitrite Negative (Negative) 07/15/23 01:45 Urine Bilirubin Negative (Negative) 07/15/23 01:45 Urine Urobilinogen Negative (Negative) 07/15/23 01:45 Ur Leukocyte Esterase 2+ (Negative) H 07/15/23 01:45 Urine WBC (Auto) 10-30 /hpf (0-5) H 07/15/23 01:45 Urine RBC (Auto) 0-4 /hpf (0-4) 07/15/23 01:45 U Hyaline Cast (Auto) 1-5 /lpf (0-5) 07/15/23 01:45 U Epithel Cells (Auto) >30 /lpf (0-5) H 07/15/23 01:45 Urine Bacteria (Auto) Negative (Negative) 07/15/23 01:45 SARS-CoV-2 (PCR) NEGATIVE (Negative) 07/15/23 00:20 Influenza Type A (PCR) Negative (Neg) 07/15/23 00:20 Influenza Type B (PCR) Negative (Neg) 07/15/23 00:20 RSV (RT-PCR) Negative (Neg) 07/15/23 00:20 Impressions Abdomen/Pelvis CT 07/15/23 00:09 Exam(s): CT ABDOMEN + PELVIS With Contrast IV Amt: 91 ml opti 320 EXAM: CT Abdomen and Pelvis With Intravenous Contrast CLINICAL HISTORY: Reason for exam: RLQ abdominal pain; vomiting. TECHNIQUE: Axial computed tomography images of the abdomen and pelvis with intravenous contrast. CTDI is 15.01 mGy and DLP is 679.43 mGy-cm. Automated exposure control was utilized for the study. A dose lowering technique was utilized adhering to the principles of ALARA. CONTRAST: Patient received 91 ml opti 320 of IV contrast COMPARISON: No relevant prior studies available. FINDINGS: Lung bases: Unremarkable. No mass. No consolidation. Pleural space: Trace LEFT pleural effusion. Mediastinum: Large hiatal hernia which contained the majority of the stomach. ABDOMEN: Liver: Small hepatic cystic lesions. Gallbladder and bile ducts: Small gallstone. No ductal dilation. Pancreas: Unremarkable. No mass. No ductal dilation. Spleen: Unremarkable. No splenomegaly. Adrenals: Unremarkable. No mass. Kidneys and ureters: Renal cyst. No hydronephrosis. Stomach and bowel: Diverticulosis, without acute diverticulitis. No small bowel obstruction. No free intraperitoneal air. PELVIS: Appendix: No findings to suggest acute appendicitis. Bladder: Decompression of my bladder. Reproductive: Unremarkable as visualized. ABDOMEN and PELVIS: Intraperitoneal space: Unremarkable. No free air. No significant fluid collection. Bones/joints: Degenerative changes of the spine. LEFT hip ORIF. No acute fracture. No dislocation. Soft tissues: Unremarkable. Vasculature: Atherosclerotic changes of the aorta. No abdominal aortic aneurysm. Lymph nodes: Unremarkable. No enlarged lymph nodes. IMPRESSION: 1. Trace LEFT pleural effusion. 2. Large hiatal hernia which contained the majority of the stomach. 3. Small gallstone. 4. LEFT hip ORIF. 5. Diverticulosis, without acute diverticulitis. No small bowel obstruction. No free intraperitoneal air. Electronically signed by: Nuno Rader MD 07/15/23 01:38 AM Diagnostic Findings EKG as per my interpretation :Rate 90, NSR, LAD, LAFB, 1 AVB, T wave flattening inferior leads
[2023-07-15] MEDS ORDERED: ACETAMINOPHEN W/CODEINE #3 1 TAB PO PRN (04:04)
[2023-07-15] MEDS: METOPROLOL TARTRATE 1 MG/ML VIAL IV STA (04:23)
[2023-07-15] MEDS: ACETAMINOPHEN 1,000 MG/100 ML VIAL IV STA (04:23)
[2023-07-15] MEDS: PROMETHAZINE HCL 6.25 MG in SODIUM CHLORIDE 0.9% 50 ML IV STA (04:24)
[2023-07-15] MEDS: PIPERACILLIN/TAZOBACTAM 4.5 GM/100 ML BAG IV STA (05:40)
[2023-07-15] MEDS: LEVOTHYROXINE SODIUM 112 MCG TABLET PO SCH (07:40)
[2023-07-15] MEDS: PANTOprazole 40 MG TAB PO SCH (09:16)
[2023-07-15] MEDS: LOSARTAN POTASSIUM 25 MG TAB PO SCH (09:16)
[2023-07-15] MEDS: SERTRALINE HCL 100 MG TABLET PO SCH (09:16)
[2023-07-15] MEDS: ATENOLOL 25 MG TABLET PO SCH (09:17)
[2023-07-15] MEDS: LIDOCAINE 5% 1 PATCH TD SCH (10:32)
[2023-07-15] MEDS: PIPERACILLIN/TAZOBACTAM 4.5 GM in DEXTROSE 5% MINI-B 100 ML IV SCH (13:13)
--- NOTE | 2023-07-15 13:44 | Communication Note ---
Date of Service: July 15, 2023 Patient was seen and examined at bedside. 87-year-old lady with PMH of HTN, HLD, PVD, cerebral aneurysm, MERY on CPAP, GERD, thyroid cancer status post surgery, postsurgical hypothyroidism, anxiety/mood disorder came in with worsening low back pain with radiation to bilateral lower extremities left greater than right. Denies any trauma or fever or chills, denies incontinence symptoms. Of note, patient did not tolerate tramadol prescription as an outpatient/increased confusion with 1 dose of tramadol. She is being managed for the following: Recent imagings: 07/13/2023 x-ray left knee -genu valgum with flattening, sclerosis and irregularity of the lateral femoral condyle possibly representing a chronic fracture deformity, new from 2020 comparison with an adjacent 2.6 cm lateral bone fragment. Severe joint space narrowing of the lateral compartment. 07/[address]: Age-indeterminate compression fracture of L2, L3 and L5. 7 mm retropulsion of the L3 compression fracture fragment. 07/12 x-ray tibia-fibula x left -degenerative changes noted, no evidence of acute fracture. 07/12 CTAP: Large hiatal hernia noted. Age indeterminant but likely chronic compression fracture of T9, L2, L3 and L5 noted. 07/12 CXR: No acute finding. 07/14 CTAP: Large hiatal hernia, small gallstone, left hip ORIF noted. Trace left pleural effusion noted. Low back pain with radiation to mostly LLE Thoracic and lumbar compression fracture Patient came in with worsening low back pain, with radiation to LLE greater than RLE Imagings reviewed, as above. At presentation: Patient with no incontinence symptoms, no fever reported, WBC WNL. Patient reports her pain is affecting her activities of daily living. MRI lumbar spine has been sent and pending Pain management, bowel regimen while on pain management. Will consult orthospine. PT/OT. Chronic fracture deformity x left knee Patient with left knee pain and has been putting more weight on her RLE Patient denies any trauma. No swelling or erythema noted on exam. Will consult orthopedics. Pain Mx, fall precaution. Complicated UTI Likely metabolic encephalopathy, likely secondary to above Patient noted to have increased confusion prior to arrival. Patient started on Zosyn 07/14, follow urine culture. Uncontrolled hypertension: Likely secondary to illness and back pain. Continue home atenolol, losartan. BP getting better. Other chronic medical conditions: Continue with/resume home meds as and when able. 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 (No recent follow[place] [facility] [place] thyroid cancer status post surgery postsurgical hypothyroidism, euthyroid as of recent outpatient TSH chronic anemia, hemoglobin at baseline prediabetes, hemoglobin A1c of 5.9 last November 2022 DVT prophylaxis. SCDs for now until MRI results known Full code Patient's son Mr. Julio Burnett, contact #[phone]. Text document was generated using [employer] voice recognition software. It may contain grammatical or spelling errors. Kindly contact undersigned for clarification of any documentation item in question.
--- NOTE | 2023-07-15 17:01 | Electrocardiogram Report ---
Test Reason : Blood Pressure : / mmHG Vent. Rate : 093 BPM Atrial Rate : 093 BPM P-R Int : 210 ms QRS Dur : 072 ms QT Int : 352 ms P-R-T Axes : 062 005 043 degrees QTc Int : 437 ms Sinus rhythm with 1st degree A-V block Possible Old Anterior infarct Abnormal ECG When compared with ECG of 13-JUL-2023 02:54, Borderline Criteria for Anterior infarct now present Confirmed by Albert Cerda ([id number]) on 07/15/2023 5:01:05 PM Referred By: REFERRED SELF Confirmed By:Albert Cerda
[2023-07-16 07:14] LABS: Basophils # (auto) 0.03 K/uL (0.00-0.20); Basophils % (auto) 0.6 %; Eosinophils # (auto) 0.31 K/uL (0.00-0.50); Hemoglobin 11.2 g/dl (12.0-16.0); Immature Granulocytes # (auto) 0.03 K/uL (0.01-0.20); Immature Granulocytes % (auto) 0.6 %; Lymphocytes # (auto) 1.13 K/uL (1.20-3.40); Lymphocytes % (auto) 21.7 %; Mean Corpuscular Hemoglobin 28.8 pg (25.0-34.0); Mean Corpuscular Hgb Conc 32.9 g/dL (32.0-36.0); Mean Corpuscular Volume 87.4 fL (80.0-100.0); Mean Platelet Volume 9.1 fL (9.4-12.4); Monocytes # (auto) 0.37 K/uL (0.11-0.59); Monocytes % (auto) 7.1 %; Neutrophils # (auto) 3.34 K/uL (1.40-6.50); Platelet Count 257 K/uL (130-400); RDW Coefficient of Variation 15.8 % (11.5-14.5); RDW Standard Deviation 50.4 fL (36.4-46.3); Red Blood Count 3.89 M/uL (4.20-5.40); White Blood Count 5.21 K/ul (4.8-10.8)
[2023-07-16 07:57] LABS: Total Protein 5.5 gm/dl (6.0-8.3)
[2023-07-16 08:03] LABS: Albumin Globulin Ratio 1.8 (0.9-2); Albumin Level 3.5 gm/dl (3.4-5.0); Bilirubin,Total 0.5 mg/dl (0.2-1.0); Calcium 8.8 mg/dl (8.6-10.3); Potassium 3.7 mmol/L (3.5-5.1)
[2023-07-16 08:09] LABS: BUN Creatinine Ratio 12.8 (10-20); Creatinine Clr Calc Pharmacy 39.4 ml/min; Est GFR (African American) 64.1 ml/min; Est GFR (Non-African American) 55.3 ml/min
--- NOTE | 2023-07-16 09:13 | Orthopedic Consultation ---
Date of Consultation July 16, 2023 Assessment & Plan (1) Left knee pain: I reviewed the x-rays with the patient is in the left knee. The bony fragment from the lateral femoral condyle does not appear acute. She does have orthopedic hardware on her proximal tibia and there is visible meghan extending near her femoral condyle from the trope nailing that was done 2 years ago. DVT prophylaxis and pain control will be deferred to medicine service Patient will most likely need placement Do not think that she will tolerated a knee immobilizer Left knee appeared to have a flexion contracture History of Present Illness Reason for Consultation: Left knee pain Requesting Physician: Luis Lanza MD Attending Physician: Quinten Banegas MD History of Present Illness Patient is an 87-year-old female presenting with lower abdominal pain, vomiting and confusion. Patient was seen yesterday for back pain and started on tramadol. Son called 911 tonight because the patient took the medication and then became acutely altered and started vomiting complaining of belly pain. On arrival to the ER, the patient does reports she is still nauseous. She is alert to person. She is complaining of lower abdominal pain and stated that started earlier this evening. Denies any diarrhea. Denies any chest pain or shortness of breath. Denies any fevers. I attempted to evaluate the patient this morning. She was very confused and aggressive. She did not want to speak to me or evaluate her knee for which were consulted to evaluate. Patient is a previous patient of Dr. Smith. He performed an open reduction internal fixation with trochanteric nailing for a left femur fracture on July 13, 2021. Patient also had surgery on her left knee for a tibial plateau fracture Dr. Smith in December of 2020 and had an I&D due to infection by Dr. Latif in Jan. Allergies Allergy/AdvReac Type Severity Reaction Status Date / Time simvastatin AdvReac Intermediate Muscle Pain Verified 07/15/23 03:09 Hbazqkz-RMW-OxF Reductase AdvReac Intermediate MUSCLE Verified 07/15/23 03:09 Inhibitor ACHES-ELEVATED [Eihnnpk-Igg-Ajv Reductase CK WITH Inhibitor] LIPITOR PER HISTORY tramadol AdvReac Intermediate Confusion Verified 07/15/23 03:46 cefazolin [From Ancef] AdvReac Mild rash on Verified 07/15/23 03:09 abdomen Home Medications Medication Instructions Recorded Confirmed Type pantoprazole 40 mg tablet,delayed 40 mg PO BID 10/07/18 07/15/23 History release atenolol 25 mg tablet 25 mg PO DAILY 01/06/21 07/15/23 History losartan 25 mg tablet 25 mg PO QAM 02/04/21 07/15/23 History sertraline 100 mg tablet 100 mg PO QAM 02/04/21 07/15/23 History acetaminophen 500 mg tablet 1,000 mg (2 x 500 mg) PO Q8 PRN 02/28/21 07/15/23 Rx (Tylenol Extra Strength) fever or pain #30 tabs doxycycline hyclate 100 mg capsule 100 mg PO DAILY 07/13/21 07/15/23 History levothyroxine 112 mcg tablet 112 mcg PO DAILYBB 07/13/23 07/15/23 History tramadol 25 mg tablet 25 mg PO Q6H PRN pain #20 tabs 07/13/23 07/15/23 Rx Patient History Medical History Bacteremia Infective endocarditis Leukocytosis Acute on chronic renal insufficiency Sepsis Acute kidney injury superimposed on chronic kidney disease Infection Sepsis PSVT (paroxysmal supraventricular tachycardia) Left leg swelling Fall Thyroid cancer Depression MERY (obstructive sleep apnea) HLD (hyperlipidemia) HTN (hypertension) CKD (chronic kidney disease), stage III Cerebral aneurysm "[facility] 07/22/13 3 mm fusiform aneurysm takeoff right [employer]" Hypothyroidism Hypertensive heart disease History of papillary adenocarcinoma of thyroid Esophagitis (12/26/10) Panic disorder (12/26/10) Surgical History Status post thyroidectomy Status post appendectomy Family History Other Diabetes Hypertension Social History Smoking Status: Never smoker Second Hand Exposure: No; Do You Dip or Chew Tobacco: No; Tobacco Cessation Education Requested by Patient: No Hx Alcohol Use: No Hx Substance Use: No Preferred Language: Burmese Communication Ability: Effective Erp Consultant Required: No Beliefs That Will Affect Care: None marital status: / Current Living Situation: Family Current Living Situation Comment: lives with grandsom How many Children do You have: 3 Feels Safe at Home: Yes Safety Concerns: Feels Safe At This Time Assistive Devices: Walker and Wheelchair Review of Systems Review of Systems: Unobtainable due to cognitive status Physical Exam Physical Exam: Patient would not let me evaluate her this morning. She began screaming when I attempt to lift her blanket to evaluate her left knee. Results & Data Vital Signs (Past 12 Hours) Vital Signs Temp Pulse Pulse Resp BP Pulse Ox O2 Del Method 07/16/23 08:02 36.1 C L 59 L 16 131/78 92 Room Air 07/16/23 07:26 69 07/16/23 04:00 36.7 C 58 L 18 161/79 H 95 Room Air 07/15/23 23:00 56 L 07/15/23 21:48 37.0 C 69 18 175/89 H 96 Room Air Diagnostic Findings Laboratory Results WBC 5.21 K/ul (4.8-10.8) 07/16/23 06:54 RBC 3.89 M/uL (4.20-5.40) L 07/16/23 06:54 Hgb 11.2 g/dl (12.0-16.0) L 07/16/23 06:54 Hct 34.0 % (37.0-47.0) L 07/16/23 06:54 MCV 87.4 fL (80.0-100.0) 07/16/23 06:54 MCH 28.8 pg (25.0-34.0) 07/16/23 06:54 MCHC 32.9 g/dL (32.0-36.0) 07/16/23 06:54 RDW Std Deviation 50.4 fL (36.4-46.3) H 07/16/23 06:54 RDW Coeff of Brandan 15.8 % (11.5-14.5) H 07/16/23 06:54 Plt Count 257 K/uL (130-400) 07/16/23 06:54 MPV 9.1 fL (9.4-12.4) L 07/16/23 06:54 Immature Gran % (Auto) 0.6 % 07/16/23 06:54 Neut % (Auto) 64.0 % 07/16/23 06:54 Lymph % (Auto) 21.7 % 07/16/23 06:54 [place] % (Auto) 7.1 % 07/16/23 06:54 Eos % (Auto) 6.0 % 07/16/23 06:54 Baso % (Auto) 0.6 % 07/16/23 06:54 Neut # (Auto) 3.34 K/uL (1.40-6.50) 07/16/23 06:54 Lymph # (Auto) 1.13 K/uL (1.20-3.40) L 07/16/23 06:54 [place] # (Auto) 0.37 K/uL (0.11-0.59) 07/16/23 06:54 Eos # (Auto) 0.31 K/uL (0.00-0.50) 07/16/23 06:54 Baso # (Auto) 0.03 K/uL (0.00-0.20) 07/16/23 06:54 Immature Gran # (Auto) 0.03 K/uL (0.01-0.20) 07/16/23 06:54 Sodium 137 mmol/L (136-145) 07/16/23 06:54 Potassium 3.7 mmol/L (3.5-5.1) 07/16/23 06:54 Chloride 107 mmol/L (98-107) 07/16/23 06:54 Carbon Dioxide 25 mmol/L (21-32) 07/16/23 06:54 Anion Gap 5 (3-11) 07/16/23 06:54 BUN 12 mg/dl (6-23) 07/16/23 06:54 Creatinine 0.94 mg/dl (0.6-1.2) 07/16/23 06:54 Est Cr Clr Drug Dosing 39.4 ml/min 07/16/23 06:54 Est GFR ( Amer) 64.1 ml/min 07/16/23 06:54 Est GFR (Non-Af Amer) 55.3 ml/min 07/16/23 06:54 BUN/Creatinine Ratio 12.8 (10-20) 07/16/23 06:54 Glucose 108 mg/dl (70-99(Fasting)) H 07/16/23 06:54 Calcium 8.8 mg/dl (8.6-10.3) 07/16/23 06:54 Magnesium 1.7 mg/dl (1.7-2.4) 07/15/23 00:20 Total Bilirubin 0.5 mg/dl (0.2-1.0) 07/16/23 06:54 AST 20 U/L (13-39) 07/16/23 06:54 ALT 10 U/L (7-52) 07/16/23 06:54 Alkaline Phosphatase 58 U/L (34-104) 07/16/23 06:54 Troponin I High Sens 6.9 pg/ml (0-14) 07/15/23 00:20 Total Protein 5.5 gm/dl (6.0-8.3) L 07/16/23 06:54 Albumin 3.5 gm/dl (3.4-5.0) 07/16/23 06:54 Globulin 2.0 gm/dl (2.5-4.0) L 07/16/23 06:54 Albumin/Globulin Ratio 1.8 (0.9-2) 07/16/23 06:54 Lipase 89 U/L (11-82) H 07/15/23 00:20 Urine Color Yellow 07/15/23 01:45 Urine Appearance Clear (Clear) 07/15/23 01:45 Urine pH 7.0 (4.5-7.5) 07/15/23 01:45 Ur Specific [place] 1.027 (1.000-1.030) 07/15/23 01:45 Urine Protein Negative (Negative) 07/15/23 01:45 Urine Glucose (UA) Negative (Negative) 07/15/23 01:45 Urine Ketones Negative (Negative) 07/15/23 01:45 Urine Blood Negative (Negative) 07/15/23 01:45 Urine Nitrite Negative (Negative) 07/15/23 01:45 Urine Bilirubin Negative (Negative) 07/15/23 01:45 Urine Urobilinogen Negative (Negative) 07/15/23 01:45 Ur Leukocyte Esterase 2+ (Negative) H 07/15/23 01:45 Urine WBC (Auto) 10-30 /hpf (0-5) H 07/15/23 01:45 Urine RBC (Auto) 0-4 /hpf (0-4) 07/15/23 01:45 U Hyaline Cast (Auto) 1-5 /lpf (0-5) 07/15/23 01:45 U Epithel Cells (Auto) >30 /lpf (0-5) H 07/15/23 01:45 Urine Bacteria (Auto) Negative (Negative) 07/15/23 01:45 SARS-CoV-2 (PCR) NEGATIVE (Negative) 07/15/23 00:20 Influenza Type A (PCR) Negative (Neg) 07/15/23 00:20 Influenza Type B (PCR) Negative (Neg) 07/15/23 00:20 RSV (RT-PCR) Negative (Neg) 07/15/23 00:20 Impressions Abdomen/Pelvis CT 07/15/23 00:09 Exam(s): CT ABDOMEN + PELVIS With Contrast IV Amt: 91 ml opti 320 EXAM: CT Abdomen and Pelvis With Intravenous Contrast CLINICAL HISTORY: Reason for exam: RLQ abdominal pain; vomiting. TECHNIQUE: Axial computed tomography images of the abdomen and pelvis with intravenous contrast. CTDI is 15.01 mGy and DLP is 679.43 mGy-cm. Automated exposure control was utilized for the study. A dose lowering technique was utilized adhering to the principles of ALARA. CONTRAST: Patient received 91 ml opti 320 of IV contrast COMPARISON: No relevant prior studies available. FINDINGS: Lung bases: Unremarkable. No mass. No consolidation. Pleural space: Trace LEFT pleural effusion. Mediastinum: Large hiatal hernia which contained the majority of the stomach. ABDOMEN: Liver: Small hepatic cystic lesions. Gallbladder and bile ducts: Small gallstone. No ductal dilation. Pancreas: Unremarkable. No mass. No ductal dilation. Spleen: Unremarkable. No splenomegaly. Adrenals: Unremarkable. No mass. Kidneys and ureters: Renal cyst. No hydronephrosis. Stomach and bowel: Diverticulosis, without acute diverticulitis. No small bowel obstruction. No free intraperitoneal air. PELVIS: Appendix: No findings to suggest acute appendicitis. Bladder: Decompression of my bladder. Reproductive: Unremarkable as visualized. ABDOMEN and PELVIS: Intraperitoneal space: Unremarkable. No free air. No significant fluid collection. Bones/joints: Degenerative changes of the spine. LEFT hip ORIF. No acute fracture. No dislocation. Soft tissues: Unremarkable. Vasculature: Atherosclerotic changes of the aorta. No abdominal aortic aneurysm. Lymph nodes: Unremarkable. No enlarged lymph nodes. IMPRESSION: 1. Trace LEFT pleural effusion. 2. Large hiatal hernia which contained the majority of the stomach. 3. Small gallstone. 4. LEFT hip ORIF. 5. Diverticulosis, without acute diverticulitis. No small bowel obstruction. No free intraperitoneal air. Electronically signed by: Nuno Rader MD 07/15/23 01:38 AM (1) Left knee pain Chronicity: acute Qualified Code(s): M25.562 - Pain in left knee
--- NOTE | 2023-07-16 14:18 | Magnetic Resonance Report ---
MRI OF THE LUMBAR SPINE WITHOUT IV CONTRAST CLINICAL HISTORY: Low back pain. COMPARISON STUDY: CT scan of the lumbar spine dated 07/13/2023. TECHNIQUE: MRI of the lumbar spine was performed utilizing various T1 and T2-weighted sequences in th e axial and sagittal planes. IV contrast was not administered for this examination. The examination i s significantly compromised by motion artifact. FINDINGS: Lumbar spine: Marrow signal intensity is markedly heterogeneous. There are mild inferior endplate com pression deformities of L2 and L3. These are age-indeterminate but likely chronic. Significant endpla te edema at L1-L2 and L2-L3 is likely on a degenerative basis. There are mildly retropulsed fragments at L3. There is a mild chronic superior endplate compression deformity of L5. Vertebral body height is otherwise maintained throughout the lumbar spine. There is minimal retrolisthesis at L3-L4. Alignm ent is otherwise preserved. There is mild lumbar levocurvature centered at L3. Large anterior and lat eral marginal osteophytes are seen throughout. There is no evidence of spondylolysis. No destructive bony lesion is seen. Chronic degenerative endplate changes seen at all levels. As noted above, there is marked endplate edema at L2-L3 and L3-L4. Milder endplate edema is seen at T10-T11. Intervertebral discs: Disc desiccation is seen throughout the lumbar spine. Moderate to severe loss o f height is noted at all levels. Fluid within the L2-L3, L3-L4, and L4-L5 disc spaces is likely degen erative. There is no significant paravertebral edema. Spinal cord: The visualized spinal cord is normal in morphology and signal intensity. The conus medul margarette terminates at the level of L2. The nerve roots of the cauda equina are grossly unremarkable. L1-L2: There is a small posterior disc bulge. There is no significant acquired compromise of the cent ral canal. Lateral disc bulges contribute to bilateral subarticular stenosis. In conjunction with fac et arthropathy, there is mild bilateral neural foraminal narrowing. L2-L3: There is a large posterior disc bulge. In conjunction with hypertrophy of the ligamentum flavu m, there is at least moderate central canal stenosis at this level with a minimum AP diameter of 6.5 mm. Lateral disc bulges contribute to bilateral subarticular stenosis. In conjunction with facet arth ropathy, there is moderate to severe bilateral neural foraminal stenosis, right greater than left. L3-L4: There is a large posterior disc bulge. In conjunction with hypertrophy of the ligamentum flavu m, there is moderate to severe central canal stenosis at this level with a minimum AP diameter of 5.5 mm. Lateral disc bulges contribute to bilateral subarticular stenosis. In conjunction with facet art hropathy, there is moderate to severe bilateral neural foraminal stenosis. L4-L5: There is posterior disc bulge with annular fissure. In conjunction with hypertrophy of the lig amentum flavum, there is severe central canal stenosis at this level with a minimum AP canal diameter of 3 mm. Lateral disc bulge contributes to bilateral subarticular stenosis. In conjunction with face t arthropathy, there is severe right and moderate left neural foraminal stenosis. L5-S1: There is minimal posterior disc bulge. The central canal is clear. Lateral disc bulges contrib baldemar to bilateral subarticular stenosis. This may abut the exiting bilateral L5 nerve roots. In conjun ction with facet arthropathy, there is moderate left and mild right neural foraminal stenosis. Sacrum: The visualized sacrum is normal in morphology. There is marrow edema identified in the coccyx with precoccygeal soft tissue edema. Soft tissues: There is fatty atrophy of the paraspinous musculature. There is asymmetric atrophy of t he left iliopsoas musculature. The retroperitoneal structures are grossly unremarkable but incomplete ly evaluated. The bladder appears distended. IMPRESSION: 1. Significantly motion compromised examination. 2. There are age-indeterminate compression deformities of L2 and L3. Significant endplate edema is no jo at L2-L3 and L3-L4, and this is likely on a degenerative basis. Subacute fractures are considered less likely but not entirely excluded. Clinical correlation will be required. 3. Suspect an acute to subacute coccygeal fracture with overlying soft tissue edema. 4. Advanced lumbosacral spondylosis and scoliosis as above with multilevel acquired compromise of the central canal. See discussion for detailed level by level analysis. 5. Fluid is seen within several disc spaces and is likely on a degenerative basis. Dictated: 07/16/2023 12:51 PM Transcribed: 07/16/2023 1:34 PM Armida [id number] [facility] [id number] Electronically signed by: Donovan Chester M.D. 07/16/2023 2:16 PM
--- NOTE | 2023-07-16 16:15 | Hospitalist Progress Note ---
Date of Service July 16, 2023 Assessment & Plan (1) Ambulatory dysfunction: Plan 87-year-old lady with PMH of HTN, HLD, PVD, cerebral aneurysm, MERY on CPAP, GERD, thyroid cancer status post surgery, postsurgical hypothyroidism, anxiety/mood disorder came in with worsening low back pain with radiation to bilateral lower extremities left greater than right. Denies any trauma or fever or chills, denies incontinence symptoms. Of note, patient did not tolerate tram adol prescription as an outpatient/increased confusion with 1 dose of tramadol. She is being managed for the following: Recent imagings: 07/13/2023 x-ray left knee -genu valgum with flattening, sclerosis and irregularity of the lateral femoral condyle possibly representing a chronic fracture deformity, new from 2020 comparison with an adjacent 2.6 cm lateral b one fragment. Severe joint space narrowing of the lateral compartment. 07/[address]: Age-indeterminate compression fracture of L2, L3 and L5. 7 mm retropulsion of the L3 compression fracture fragment. 07/12 x-ray tibia-fibula x left -degenerative changes noted, no evidence of acute fracture. 07/12 CTAP: Large hiatal hernia noted. Age indeterminant but likely chronic compression fracture of T9, L2, L3 and L5 noted. 07/12 CXR: No acute finding. 07/14 CTAP: Large hiatal hernia, small gallstone, left hip ORIF noted. Trace left pleural effusion noted. 07/16/2023 MRI spine: Age-indeterminate compression deformities of L2 and L3. Significant endplate edema is noted at L2 - L3 and L3 - L4. Subacute fractures are considered less likely. Acute to subacute coccygeal fracture with overlying soft tissue edema noted. Low back pain with radiation to mostly LLE Concern for Thoracic and lumbar compression fracture Coccygeal fracture Patient came in with worsening low back pain, with radiation to LLE greater than RLE Imagings reviewed, as above. At presentation: Patient with no incontinence symptoms, no fever reported, WBC WNL. Patient reported her pain is affecting her activities of daily living. Pain management, bowel regimen while on pain management. Will consult orthospine. PT/OT. Patient reports improving pain control today. Chronic fracture deformity x left knee Patient with left knee pain and has been putting more weight on her RLE Patient denies any trauma. No swelling or erythema noted on exam. Orthopedic evaluated, continue conservative management. Pain Mx, fall precaution. Complicated UTI Likely metabolic encephalopathy, likely secondary to above Patient noted to have increased confusion prior to arrival. Patient started on Zosyn 07/14, follow urine culture. Uncontrolled hypertension: Likely secondary to illness and back pain. Continue home atenolol, losartan. BP getting better. Other chronic medical conditions: Continue with/resume home meds as and when able. 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 (No recent follow-up with [facility] Neuro[facility].) thyroid cancer status post surgery postsurgical hypothyroidism, euthyroid as of recent outpatient TSH chronic anemia, hemoglobin at baseline prediabetes, hemoglobin A1c of 5.9 last November 2022 DVT prophylaxis. SCDs for now until MRI results known Full code Patient's son Mr. Julio Burnett, contact #[phone]. Text document was generated using [employer] voice recognition software. It may contain grammatical or spelling errors. Kindly contact undersigned for clarification of any documentation item in question. Admission and Anticipated Discharge Date Admission Date: July 15, 2023 Subjective Patient was seen and examined at bedside. Patient was alert and awake, oriented x 1, reports pain better controlled today. Patient denies any other review of symptoms. Physical Exam Physical Exam: GENERAL: Alert and awake, NAD, on room air. Mild hearing impairment. HEENT: No pallor, no icterus. Pupils equal, round and reactive to light. Oral mucosa moist. NECK: No JVD, no neck masses. HEART: S1 and S2 heard. Regular rate and rhythm. No murmur, no gallop. RESPIRATORY SYSTEM: Normal AP diameter. No accessory muscle use. No wheezing, no crackles. ABDOMEN: Soft, bowel sounds present, nontender, no distention. CENTRAL NERVOUS SYSTEM: No facial droop. Speech is clear. Obeys simple commands. Moves extremities. EXTREMITIES: No edema, no erythema seen. Left knee with flexion contracture and valgus deformity. No erythema/effusion noted. Results & Data Results & Data Vital Signs (Past 12 Hours) Vital Signs Temp Pulse Pulse Resp BP Pulse Ox O2 Del Method 07/16/23 13:58 Room Air 07/16/23 12:12 36.6 C 98 H 16 132/82 94 Room Air 07/16/23 08:02 36.1 C L 59 L 16 131/78 92 Room Air 07/16/23 07:26 69
--- NOTE | 2023-07-16 16:54 | Orthopedic Progress Note ---
Date of Service July 16, 2023 Assessment & Plan (1) Left knee pain: Plan I reviewed x-rays of her left tib-fib and knee. There is no acute fracture. The end of the intramedullary meghan from the left femur is noted. The left tibia has internal fixation. There is an ossicle located laterally chronic in appearance. There is no acute fracture. The reports are noted. I recommended to her nurse that the patient get a one-on-one as she does not follow instructions and is trying to climb out of bed. I do not think there is anything acutely going on with her left knee area. I think this is a chronic posttraumatic deformity related to her previous injury and surgery. If she can ambulate safely with walker and assistance she may do so but she is not safe for independent ambulation or transfers. She may follow-up with Dr. Babak burch as needed. No specific intervention is necessary at the present time thank you Admission and Anticipated Discharge Date Admission Date: July 15, 2023 Subjective Patient seen in conjunction with SANDRO Cuenca. For further details refer to his dictation. Patient had a left hip fracture several years ago treated by Dr. Babak burch with an intramedullary nail. Prior to that she had a left tibial plateau fracture which was treated with ORIF. This became infected and I did an incision and drainage. Patient is admitted for mental status changes and orthopedics was consulted because of chronic left knee deformity. The patient is profoundly confused and combative. She does not comply with examination. There is no known history of recent trauma to the leg. She reports that she had previous surgery and that her knee does not bend or straighten. She also reports that she does not walk however the nurse aide indicated that she did ambulate with walker earlier today. Physical Exam Physical Exam: She can sit at the edge of the bed. There is limited ability to examine. Her hip does not appear to be painful on the left side. She can partially stand but does not want to bear weight on her left leg. Her left knee is not swollen although there is some valgus deformity present. I cannot do a ligament exam. There is no bruising swelling or effusion. She reports intact sensation in her leg her pedal pulses are 1+ palpable and she has intact ankle flexion extension but does not comply with a detailed neurovascular exam. Her left knee range of motion appears to be approximately 0/30/90. She has good painless range of motion of her right lower extremity without swelling or pain. She has a well- healed midline right knee incision. Results & Data Vital Signs (Past 12 Hours) Vital Signs Temp Pulse Pulse Resp BP Pulse Ox O2 Del Method 07/16/23 13:58 Room Air 07/16/23 12:12 36.6 C 98 H 16 132/82 94 Room Air 07/16/23 08:02 36.1 C L 59 L 16 131/78 92 Room Air 07/16/23 07:26 69 (1) Left knee pain Chronicity: acute Qualified Code(s): M25.562 - Pain in left knee
[2023-07-16] MEDS: OLANZapine 10 MG/2.1 ML SDV IM PRN (17:00)
[2023-07-16] MEDS: ACETAMINOPHEN 325 MG TAB PO PRN (20:11)
[2023-07-17 06:07] LABS: Hematocrit (blood only) 34.8 % (37.0-47.0); Hemoglobin 10.8 g/dl (12.0-16.0); Mean Corpuscular Volume 90.2 fL (80.0-100.0); Mean Platelet Volume 9.1 fL (9.4-12.4); Platelet Count 258 K/uL (130-400); RDW Standard Deviation 53.4 fL (36.4-46.3); Red Blood Count 3.86 M/uL (4.20-5.40); White Blood Count 5.04 K/ul (4.8-10.8)
[2023-07-17 06:11] LABS: BUN Creatinine Ratio 14.5 (10-20); Calcium 8.9 mg/dl (8.6-10.3); Creatinine Clr Calc Pharmacy 29.8 ml/min; Est GFR (African American) 45.9 ml/min; Est GFR (Non-African American) 39.6 ml/min; Magnesium 1.7 mg/dl (1.7-2.4); Phosphorus 4.1 mg/dl (2.5-4.9); Potassium 3.9 mmol/L (3.5-5.1)
[2023-07-17] MEDS: MAGNESIUM SULFATE / D5W 1 GM/100 ML BAG IV SCH (09:11)
[2023-07-17] MEDS: SODIUM CHLORIDE 0.9% 1,000 ML IV SCH (09:11)
--- NOTE | 2023-07-17 10:10 | Orthopedic Consultation ---
Date of Consultation July 17, 2023 Assessment & Plan (1) Neurogenic claudication due to lumbar spinal stenosis: Assessment lumbar compression fractures with severe spinal stenosis and history of neurogenic claudication. Plan at this time she has significant advanced multiple areas of spondylosis and stenosis throughout her lumbar spine with varying degrees of healing compression fractures. At this point I would not recommend any surgical intervention. She is a very poor surgical candidate. A brace would probably be more cumbersome than helpful regarding her symptoms. She would be best served by pain management. History of Present Illness Reason for Consultation: Back pain Attending Physician: Quinten Banegas MD History of Present Illness This is a 87-year-old female presents to the hospital with multiple medical issues and predominantly encephalopathy. She has a history of back pain. This morning she states her pain is controlled. Denies any leg pain. She has not been out of bed. She states she is currently comfortable sitting up. Allergies Allergy/AdvReac Type Severity Reaction Status Date / Time simvastatin AdvReac Intermediate Muscle Pain Verified 07/15/23 03:09 [id number]-UUK-PzD Reductase AdvReac Intermediate MUSCLE Verified 07/15/23 03:09 Inhibitor ACHES-ELEVATED [Sosyukc-Vgx-Fcc Reductase CK WITH Inhibitor] LIPITOR PER HISTORY tramadol AdvReac Intermediate Confusion Verified 07/15/23 03:46 cefazolin [From Ancef] AdvReac Mild rash on Verified 07/15/23 03:09 abdomen Home Medications Medication Instructions Recorded Confirmed Type pantoprazole 40 mg tablet,delayed 40 mg PO BID 10/07/18 07/15/23 History release atenolol 25 mg tablet 25 mg PO DAILY 01/06/21 07/15/23 History losartan 25 mg tablet 25 mg PO QAM 02/04/21 07/15/23 History sertraline 100 mg tablet 100 mg PO QAM 02/04/21 07/15/23 History acetaminophen 500 mg tablet 1,000 mg (2 x 500 mg) PO Q8 PRN 02/28/21 07/15/23 Rx (Tylenol Extra Strength) fever or pain #30 tabs doxycycline hyclate 100 mg capsule 100 mg PO DAILY 07/13/21 07/15/23 History levothyroxine 112 mcg tablet 112 mcg PO DAILYBB 07/13/23 07/15/23 History tramadol 25 mg tablet 25 mg PO Q6H PRN pain #20 tabs 07/13/23 07/15/23 Rx Patient History Medical History Bacteremia Infective endocarditis Leukocytosis Acute on chronic renal insufficiency Sepsis Acute kidney injury superimposed on chronic kidney disease Infection Sepsis PSVT (paroxysmal supraventricular tachycardia) Left leg swelling Fall Thyroid cancer Depression MERY (obstructive sleep apnea) HLD (hyperlipidemia) HTN (hypertension) CKD (chronic kidney disease), stage III Cerebral aneurysm "[facility] 07/22/13 3 mm fusiform aneurysm takeoff right 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" Hypothyroidism Hypertensive heart disease History of papillary adenocarcinoma of thyroid Esophagitis (12/26/10) Panic disorder (12/26/10) Surgical History Status post thyroidectomy Status post appendectomy Family History Other Diabetes Hypertension Social History Smoking Status: Never smoker Second Hand Exposure: No; Do You Dip or Chew Tobacco: No; Tobacco Cessation Education Requested by Patient: No Hx Alcohol Use: No Hx Substance Use: No Preferred Language: Tuvaluan Communication Ability: Effective 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 She appears comfortable. She has reasonable strength testing of extremities. Sensory is intact. Results & Data Vital Signs (Past 12 Hours) Vital Signs Temp Pulse Resp BP Pulse Ox O2 Del Method 07/17/23 09:30 36.4 C L 60 18 116/81 92 Room Air
--- NOTE | 2023-07-17 16:51 | Hospitalist Progress Note ---
Date of Service July 17, 2023 Assessment & Plan (1) Ambulatory dysfunction: Plan 87-year-old lady with PMH of HTN, HLD, PVD, cerebral aneurysm, MERY on CPAP, GERD, thyroid cancer status post surgery, postsurgical hypothyroidism, anxiety/mood disorder came in with worsening low back pain with radiation to bilateral lower extremities left greater than right. Denies any trauma or fever or chills, denies incontinence symptoms. Of note, patient did not tolerate tram adol prescription as an outpatient/increased confusion with 1 dose of tramadol. She is being managed for the following: Recent imagings: 07/13/2023 x-ray left knee -genu valgum with flattening, sclerosis and irregularity of the lateral femoral condyle possibly representing a chronic fracture deformity, new from 2020 comparison with an adjacent 2.6 cm lateral b one fragment. Severe joint space narrowing of the lateral compartment. 07/[address]: Age-indeterminate compression fracture of L2, L3 and L5. 7 mm retropulsion of the L3 compression fracture fragment. 07/12 x-ray tibia-fibula x left -degenerative changes noted, no evidence of acute fracture. 07/12 CTAP: Large hiatal hernia noted. Age indeterminant but likely chronic compression fracture of T9, L2, L3 and L5 noted. 07/12 CXR: No acute finding. 07/14 CTAP: Large hiatal hernia, small gallstone, left hip ORIF noted. Trace left pleural effusion noted. 07/16/2023 MRI spine: Age-indeterminate compression deformities of L2 and L3. Significant endplate edema is noted at L2 - L3 and L3 - L4. Subacute fractures are considered less likely. Acute to subacute coccygeal fracture with overlying soft tissue edema noted. Low back pain with radiation to mostly LLE Concern for Thoracic and lumbar compression fracture Coccygeal fracture Patient came in with worsening low back pain, with radiation to LLE greater than RLE Imagings reviewed, as above. At presentation: Patient with no incontinence symptoms, no fever reported, WBC WNL. Patient reported her pain is affecting her activities of daily living. Pain management, bowel regimen while on pain management. Orthospine evaluated, conservative management in this frail lady. PT/OT. Patient reports improving pain control today. Chronic fracture deformity x left knee Patient with left knee pain and has been putting more weight on her RLE Patient denies any trauma. No swelling or erythema noted on exam. Orthopedic evaluated, continue conservative management. Pain Mx, fall precaution. Complicated UTI Likely metabolic encephalopathy, likely secondary to above Patient noted to have increased confusion prior to arrival. Patient started on Zosyn 07/14, follow urine culture. Uncontrolled hypertension: Likely secondary to illness and back pain. Continue home atenolol, losartan. BP getting better. Other chronic medical conditions: Continue with/resume home meds as and when able. 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 (No recent follow-up with [facility]surgery.) thyroid cancer status post surgery postsurgical hypothyroidism, euthyroid as of recent outpatient TSH chronic anemia, hemoglobin at baseline prediabetes, hemoglobin A1c of 5.9 last November 2022 DVT prophylaxis. SCDs for now until MRI results known Full code PT/OT, likely will need rehab, CM to assist with DC planning. Can DC to rehab. Patient's son Mr. Julio Burnett, contact #[phone]. He was given phone call on 07/16 for general update, left voicemail to call us back and ask for Dr. Dumont. Text document was generated using Certain voice recognition software. It may contain grammatical or spelling errors. Kindly contact undersigned for clarification of any documentation item in question. Admission and Anticipated Discharge Date Admission Date: July 15, 2023 Subjective Patient was seen and examined at bedside. Patient was alert and awake, reports pain better controlled today. Patient denies any other review of symptoms. Per RN patient slept all night but was very confused last evening. Patient has been eating okay, no complaints of diarrhea. Physical Exam Physical Exam: GENERAL: Alert and awake, NAD, on room air. Mild hearing impairment. HEENT: No pallor, no icterus. Pupils equal, round and reactive to light. Oral mucosa moist. NECK: No JVD, no neck masses. HEART: S1 and S2 heard. Regular rate and rhythm. No murmur, no gallop. RESPIRATORY SYSTEM: Normal AP diameter. No accessory muscle use. No wheezing, no crackles. ABDOMEN: Soft, bowel sounds present, nontender, no distention. CENTRAL NERVOUS SYSTEM: No facial droop. Speech is clear. Obeys simple commands. Moves extremities. EXTREMITIES: No edema, no erythema seen. Left knee with flexion contracture and valgus deformity. No erythema/effusion noted. Results & Data Results & Data Vital Signs (Past 12 Hours) Vital Signs Temp Pulse Resp BP Pulse Ox O2 Del Method 07/17/23 11:36 36.4 C L 54 L 20 104/67 93 Room Air 07/17/23 09:30 36.4 C L 60 18 116/81 92 Room Air
[2023-07-18 08:58] LABS: BUN Creatinine Ratio 14.3 (10-20); Calcium 8.6 mg/dl (8.6-10.3); Est GFR (African American) 51.9 ml/min; Est GFR (Non-African American) 44.8 ml/min; Magnesium 2.1 mg/dl (1.7-2.4); Potassium 3.8 mmol/L (3.5-5.1)
--- NOTE | 2023-07-18 15:04 | Hospitalist Progress Note ---
Date of Service July 18, 2023 Assessment & Plan (1) Ambulatory dysfunction: Plan 87-year-old lady with PMH of HTN, HLD, PVD, cerebral aneurysm, MERY on CPAP, GERD, thyroid cancer status post surgery, postsurgical hypothyroidism, anxiety/mood disorder came in with worsening low back pain with radiation to bilateral lower extremities left greater than right. Denies any trauma or fever or chills, denies incontinence symptoms. Of note, patient did not tolerate tra madol prescription as an outpatient/increased confusion with 1 dose of tramadol. She is being managed for the following: Recent imagings: 07/13/2023 x-ray left knee -genu valgum with flattening, sclerosis and irregularity of the lateral femoral condyle possibly representing a chronic fracture deformity, new from 2020 comparison with an adjacent 2.6 cm lateral bone fragment. Severe joint space narrowing of the lateral compartment. 07/[address]: Age-indeterminate compression fracture of L2, L3 and L5. 7 mm retropulsion of the L3 compression fracture fragment. 07/12 x-ray tibia-fibula x left -degenerative changes noted, no evidence of acute fracture. 07/12 CTAP: Large hiatal hernia noted. Age indeterminant but likely chronic compression fracture of T9, L2, L3 and L5 noted. 07/12 CXR: No acute finding. 07/14 CTAP: Large hiatal hernia, small gallstone, left hip ORIF noted. Trace left pleural effusion noted. 07/16/2023 MRI spine: Age-indeterminate compression deformities of L2 and L3. Significant endplate edema is noted at L2 - L3 and L3 - L4. Subacute fractures are considered less likely. Acute to subacute coccygeal fracture with overlying soft tissue edema noted. Low back pain with radiation to mostly LLE Concern for Thoracic and lumbar compression fracture Coccygeal fracture Patient came in with worsening low back pain, with radiation to LLE greater than RLE Imagings reviewed, as above. At presentation: Patient with no incontinence symptoms, no fever reported, WBC WNL. Patient reported her pain is affecting her activities of daily living. Pain management, bowel regimen while on pain management. Orthospine evaluated, conservative management in this frail lady. PT/OT. Patient reports improving pain control today. Chronic fracture deformity x left knee Patient with left knee pain and has been putting more weight on her RLE Patient denies any trauma. No swelling or erythema noted on exam. Orthopedic evaluated, continue conservative management. Pain Mx, fall precaution. Complicated UTI Likely metabolic encephalopathy, likely secondary to above Patient noted to have increased confusion prior to arrival. Patient started on Zosyn 07/14 to rocephin 07/17, will complete 7 day course. Uncontrolled hypertension: Likely secondary to illness and back pain. Continue home atenolol, losartan. BP now stable. Other chronic medical conditions: Continue with/resume home meds as and when able. 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 (No recent follow-up with [facility].) thyroid cancer status post surgery postsurgical hypothyroidism, euthyroid as of recent outpatient TSH chronic anemia, hemoglobin at baseline prediabetes, hemoglobin A1c of 5.9 last November 2022 DVT prophylaxis. SCDs for now until MRI results known Full code PT/OT, likely will need rehab, CM to assist with DC planning. Can DC to rehab. to med surg until then Patient's son Mr. Julio Burnett, contact #[phone]. He was given phone call on 07/16 for general update, left voicemail to call us back and ask for Dr. Banegas Text document was generated using [employer] voice recognition software. It may contain grammatical or spelling errors. Kindly contact undersigned for clarification of any documentation item in question. Admission and Anticipated Discharge Date Admission Date: July 15, 2023 Subjective Patient was seen and examined at bedside. Patient was alert and awake, reports pain under control. Patient denies any other review of symptoms. Per RN patient no new issues overnight, no agitation, no BMs in few day. prn bowel regimen added. Physical Exam Physical Exam: GENERAL: Alert and awake, NAD, on room air. Mild hearing impairment. HEENT: No pallor, no icterus. Pupils equal, round and reactive to light. Oral mucosa moist. NECK: No JVD, no neck masses. HEART: S1 and S2 heard. Regular rate and rhythm. No murmur, no gallop. RESPIRATORY SYSTEM: Normal AP diameter. No accessory muscle use. No wheezing, no crackles. ABDOMEN: Soft, bowel sounds present, nontender, no distention. CENTRAL NERVOUS SYSTEM: No facial droop. Speech is clear. Obeys simple commands. Moves extremities. EXTREMITIES: No edema, no erythema seen. Left knee with flexion contracture and valgus deformity. No erythema/effusion noted. Results & Data Results & Data Vital Signs (Past 12 Hours) Vital Signs Temp Pulse Resp BP Pulse Ox O2 Del Method 07/18/23 11:56 36.6 C 81 16 104/68 93 Room Air 07/18/23 08:58 36.4 C L 52 L 16 112/63 93 Room Air 07/18/23 04:17 36.4 C L 58 L 18 114/69 92 Room Air
[2023-07-18] MEDS: POLYETHYLENE (MIRALAX) 17 GM PACK PO PRN (15:29)
[2023-07-18] MEDS: ADVANCED PROBIOTIC 625 MG CAPSULE PO SCH (15:29)
[2023-07-18] MEDS: DOCUSATE SODIUM 100 MG CAP PO SCH (15:29)
[2023-07-18] MEDS: cefTRIAXone SODIUM 2,000 MG in DEXTROSE 5 % MINI-B 50 ML IV SCH (21:45)
--- NOTE | 2023-07-19 14:51 | Hospitalist Progress Note ---
Date of Service July 19, 2023 Assessment & Plan (1) Ambulatory dysfunction: Plan 87-year-old lady with PMH of HTN, HLD, PVD, cerebral aneurysm, MERY on CPAP, GERD, thyroid cancer status post surgery, postsurgical hypothyroidism, anxiety/mood disorder came in with worsening low back pain with radiation to bilateral lower extremities left greater than right. Denies any trauma or fever or chills, denies incontinence symptoms. Of note, patient did not tolerate tra madol prescription as an outpatient/increased confusion with 1 dose of tramadol. She is being managed for the following: Recent imagings: 07/13/2023 x-ray left knee -genu valgum with flattening, sclerosis and irregularity of the lateral femoral condyle possibly representing a chronic fracture deformity, new from 2020 comparison with an adjacent 2.6 cm lateral bone fragment. Severe joint space narrowing of the lateral compartment. 07/[address]: Age-indeterminate compression fracture of L2, L3 and L5. 7 mm retropulsion of the L3 compression fracture fragment. 07/12 x-ray tibia-fibula x left -degenerative changes noted, no evidence of acute fracture. 07/12 CTAP: Large hiatal hernia noted. Age indeterminant but likely chronic compression fracture of T9, L2, L3 and L5 noted. 07/12 CXR: No acute finding. 07/14 CTAP: Large hiatal hernia, small gallstone, left hip ORIF noted. Trace left pleural effusion noted. 07/16/2023 MRI spine: Age-indeterminate compression deformities of L2 and L3. Significant endplate edema is noted at L2 - L3 and L3 - L4. Subacute fractures are considered less likely. Acute to subacute coccygeal fracture with overlying soft tissue edema noted. Low back pain with radiation to mostly LLE Concern for Thoracic and lumbar compression fracture Coccygeal fracture Patient came in with worsening low back pain, with radiation to LLE greater than RLE Imagings reviewed, as above. At presentation: Patient with no incontinence symptoms, no fever reported, WBC WNL. Patient reported her pain is affecting her activities of daily living. Pain management, bowel regimen while on pain management. Orthospine evaluated, conservative management in this frail lady. PT/OT. Patient reports pain under control. Chronic fracture deformity x left knee Patient with left knee pain and has been putting more weight on her RLE Patient denies any trauma. No swelling or erythema noted on exam. Orthopedic evaluated, continue conservative management. Pain Mx, fall precaution. Complicated UTI Likely metabolic encephalopathy, likely secondary to above Patient noted to have increased confusion prior to arrival. Patient started on Zosyn 07/14 to rocephin 07/17, will complete 7 day course. Uncontrolled hypertension: Likely secondary to illness and back pain. Continue home atenolol, losartan. BP now stable. Other chronic medical conditions: Continue with/resume home meds as and when able. 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 (No recent follow-up with [facility] Neurosurgery.) thyroid cancer status post surgery postsurgical hypothyroidism, euthyroid as of recent outpatient TSH chronic anemia, hemoglobin at baseline prediabetes, hemoglobin A1c of 5.9 last November 2022 DVT prophylaxis. SCDs for now until MRI results known Full code PT/OT, likely will need rehab, CM to assist with DC planning. Can DC to rehab. to med surg until then Patient's son Mr. Julio Burnett, contact #[phone]. He was given phone call on 07/16 for general update, left voicemail to call us back and ask for Dr. Banegas Text document was generated using [employer] voice recognition software. It may contain grammatical or spelling errors. Kindly contact undersigned for clarification of any documentation item in question. Admission and Anticipated Discharge Date Admission Date: July 15, 2023 Subjective Patient was seen and examined at bedside. Patient was alert and awake, reports pain under control. Patient denies any other review of symptoms. Patient reports eating okay and moving bowels okay. Physical Exam Physical Exam: GENERAL: Alert and awake, NAD, on room air. Mild hearing impairment. HEENT: No pallor, no icterus. Pupils equal, round and reactive to light. Oral mucosa moist. NECK: No JVD, no neck masses. HEART: S1 and S2 heard. Regular rate and rhythm. No murmur, no gallop. RESPIRATORY SYSTEM: Normal AP diameter. No accessory muscle use. No wheezing, no crackles. ABDOMEN: Soft, bowel sounds present, nontender, no distention. CENTRAL NERVOUS SYSTEM: No facial droop. Speech is clear. Obeys simple commands. Moves extremities. EXTREMITIES: No edema, no erythema seen. Left knee with flexion contracture and valgus deformity. No erythema/effusion noted. Results & Data Results & Data Vital Signs (Past 12 Hours) Vital Signs Temp Pulse Resp BP BP Pulse Ox O2 Del Method 07/19/23 11:32 36.3 C L 87 16 131/79 94 Room Air 07/19/23 07:39 36.8 C 90 18 156/91 H 94 Room Air 07/19/23 07:36 36.7 C 62 18 165/92 H 94 Room Air
--- NOTE | 2023-07-20 14:55 | Hospitalist Progress Note ---
Date of Service July 20, 2023 Assessment & Plan (1) Ambulatory dysfunction: Plan 87-year-old lady with PMH of HTN, HLD, PVD, cerebral aneurysm, MERY on CPAP, GERD, thyroid cancer status post surgery, postsurgical hypothyroidism, anxiety/mood disorder came in with worsening low back pain with radiation to bilateral lower extremities left greater than right. Denies any trauma or fever or chills, denies incontinence symptoms. Of note, patient did not tolerate tra madol prescription as an outpatient/increased confusion with 1 dose of tramadol. She is being managed for the following: Recent imagings: 07/13/2023 x-ray left knee -genu valgum with flattening, sclerosis and irregularity of the lateral femoral condyle possibly representing a chronic fracture deformity, new from 2020 comparison with an adjacent 2.6 cm lateral bone fragment. Severe joint space narrowing of the lateral compartment. 07/[address]: Age-indeterminate compression fracture of L2, L3 and L5. 7 mm retropulsion of the L3 compression fracture fragment. 07/12 x-ray tibia-fibula x left -degenerative changes noted, no evidence of acute fracture. 07/12 CTAP: Large hiatal hernia noted. Age indeterminant but likely chronic compression fracture of T9, L2, L3 and L5 noted. 07/12 CXR: No acute finding. 07/14 CTAP: Large hiatal hernia, small gallstone, left hip ORIF noted. Trace left pleural effusion noted. 07/16/2023 MRI spine: Age-indeterminate compression deformities of L2 and L3. Significant endplate edema is noted at L2 - L3 and L3 - L4. Subacute fractures are considered less likely. Acute to subacute coccygeal fracture with overlying soft tissue edema noted. Low back pain with radiation to mostly LLE Concern for Thoracic and lumbar compression fracture Coccygeal fracture Patient came in with worsening low back pain, with radiation to LLE greater than RLE Imagings reviewed, as above. At presentation: Patient with no incontinence symptoms, no fever reported, WBC WNL. Patient reported her pain is affecting her activities of daily living. Pain management, bowel regimen while on pain management. Orthospine evaluated, conservative management in this frail lady. PT/OT. Patient reports pain under control. Chronic fracture deformity x left knee Patient with left knee pain and has been putting more weight on her RLE Patient denies any trauma. No swelling or erythema noted on exam. Orthopedic evaluated, continue conservative management. Pain Mx, fall precaution. Complicated UTI Likely metabolic encephalopathy, likely secondary to above Patient noted to have increased confusion prior to arrival. Patient started on Zosyn 07/14 to rocephin 07/17, will complete 7 day course silvia. Uncontrolled hypertension: Likely secondary to illness and back pain. Continue home atenolol, losartan. BP now stable. Other chronic medical conditions: Continue with/resume home meds as and when able. 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 (No recent follow-up with [facility] [place] [facility] thyroid cancer status post surgery postsurgical hypothyroidism, euthyroid as of recent outpatient TSH chronic anemia, hemoglobin at baseline prediabetes, hemoglobin A1c of 5.9 last November 2022 DVT prophylaxis. SCDs for now until MRI results known Full code PT/OT, likely will need rehab, CM to assist with DC planning. Can DC to rehab. to med surg until then Patient's son Mr. Julio Burnett, contact #[phone]. He was given phone call on 07/16 for general update, left voicemail to call us back and ask for Dr. Banegas Text document was generated using [employer] voice recognition software. It may contain grammatical or spelling errors. Kindly contact undersigned for clarification of any documentation item in question. Admission and Anticipated Discharge Date Admission Date: July 15, 2023 Subjective Patient was seen and examined at bedside. Patient was alert and awake, reports pain under control. Patient denies any other review of symptoms. Patient reports eating okay and moving bowels okay. Physical Exam Physical Exam: GENERAL: Alert and awake, NAD, on room air. Mild hearing impairment. HEENT: No pallor, no icterus. Pupils equal, round and reactive to light. Oral mucosa moist. NECK: No JVD, no neck masses. HEART: S1 and S2 heard. Regular rate and rhythm. No murmur, no gallop. RESPIRATORY SYSTEM: Normal AP diameter. No accessory muscle use. No wheezing, no crackles. ABDOMEN: Soft, bowel sounds present, nontender, no distention. CENTRAL NERVOUS SYSTEM: No facial droop. Speech is clear. Obeys simple commands. Moves extremities. EXTREMITIES: No edema, no erythema seen. Left knee with flexion contracture and valgus deformity. No erythema/effusion noted. Results & Data Results & Data Vital Signs (Past 12 Hours) Vital Signs Temp Pulse Resp BP Pulse Ox O2 Del Method 07/20/23 09:33 36.6 C 61 14 132/77 95 Room Air
[2023-07-21] MEDS: DOCUSATE SODIUM/SENNA 50/8.6MG TAB PO SCH (08:30)
[2023-07-21] MEDS: LACTULOSE SYRUP 30 GM/45 ML UDP PO STA (08:31)
[2023-07-21 09:26] LABS: Hematocrit (blood only) 35.7 % (37.0-47.0); Hemoglobin 10.9 g/dl (12.0-16.0); Mean Corpuscular Hgb Conc 30.5 g/dL (32.0-36.0); Mean Corpuscular Volume 91.8 fL (80.0-100.0); Mean Platelet Volume 9.1 fL (9.4-12.4); Platelet Count 267 K/uL (130-400); RDW Coefficient of Variation 16.1 % (11.5-14.5); Red Blood Count 3.89 M/uL (4.20-5.40); White Blood Count 5.79 K/ul (4.8-10.8)
--- NOTE | 2023-07-21 12:45 | Hospitalist Progress Note ---
Date of Service July 21, 2023 Assessment & Plan (1) Ambulatory dysfunction: Plan 87-year-old lady with PMH of HTN, HLD, PVD, cerebral aneurysm, MERY on CPAP, GERD, thyroid cancer status post surgery, postsurgical hypothyroidism, anxiety/mood disorder came in with worsening low back pain with radiation to bilateral lower extremities left greater than right. Denies any trauma or fever or chills, denies incontinence symptoms. Of note, patient did not tolerate tra madol prescription as an outpatient/increased confusion with 1 dose of tramadol. She is being managed for the following: Recent imagings: 07/13/2023 x-ray left knee -genu valgum with flattening, sclerosis and irregularity of the lateral femoral condyle possibly representing a chronic fracture deformity, new from 2020 comparison with an adjacent 2.6 cm lateral bone fragment. Severe joint space narrowing of the lateral compartment. 07/[address]: Age-indeterminate compression fracture of L2, L3 and L5. 7 mm retropulsion of the L3 compression fracture fragment. 07/12 x-ray tibia-fibula x left -degenerative changes noted, no evidence of acute fracture. 07/12 CTAP: Large hiatal hernia noted. Age indeterminant but likely chronic compression fracture of T9, L2, L3 and L5 noted. 07/12 CXR: No acute finding. 07/14 CTAP: Large hiatal hernia, small gallstone, left hip ORIF noted. Trace left pleural effusion noted. 07/16/2023 MRI spine: Age-indeterminate compression deformities of L2 and L3. Significant endplate edema is noted at L2 - L3 and L3 - L4. Subacute fractures are considered less likely. Acute to subacute coccygeal fracture with overlying soft tissue edema noted. Low back pain with radiation to mostly LLE Concern for Thoracic and lumbar compression fracture Coccygeal fracture Patient came in with worsening low back pain, with radiation to LLE greater than RLE Imagings reviewed, as above. At presentation: Patient with no incontinence symptoms, no fever reported, WBC WNL. Patient reported her pain is affecting her activities of daily living. Pain management, bowel regimen while on pain management. Orthospine evaluated, conservative management in this frail lady. PT/OT. Patient reports pain under control. Chronic fracture deformity x left knee Patient with left knee pain and has been putting more weight on her RLE Patient denies any trauma. No swelling or erythema noted on exam. Orthopedic evaluated, continue conservative management. Pain Mx, fall precaution. Complicated UTI Likely metabolic encephalopathy, likely secondary to above Patient noted to have increased confusion prior to arrival. Patient started on Zosyn 07/14 to rocephin 07/17, will complete 7 day course on 07/21/23 Uncontrolled hypertension: Likely secondary to illness and back pain. Continue home atenolol, losartan. BP now stable. BP today is 134/73 Vitamin D Deficiency : Vit D level is 17 Start Vit D3 1000units daily. Repeat vit D level in 3 months. Other chronic medical conditions: Continue with/resume home meds as and when able. 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 (No recent follow-up with [facility] [place] [facility] thyroid cancer status post surgery postsurgical hypothyroidism, euthyroid as of recent outpatient TSH chronic anemia, hemoglobin at baseline prediabetes, hemoglobin A1c of 5.9 last November 2022, repeat a1c in a.m. DVT prophylaxis. Hep sq Full code PT/OT, likely will need rehab, CM to assist with DC planning. Can DC to rehab. to med surg until then Patient's son Mr. Julio Burnett, contact #[phone]. Pt was seen and examined in collaboration with Dr. Engel, please see addendum A total of 40 minutes was spent coordinating, documenting, and providing care for this patient excluding time spent in the performance of separately billed services. This included personally viewing all current laboratories and imaging studies, medication reconciliation, outpatient chart review, and discussion with specialists. Admission and Anticipated Discharge Date Admission Date: July 15, 2023 Supervising Physician Co-Signing Physician Notes Patient seen and examined I agree with findings and plan as detailed by Advanced Provider and take full responsibility I spent a total of 25 minutes coordinating, documenting and providing care for this patient excluding time spent in performance of separately billed services Subjective Patient was seen and examined in 376-2 Follow up low back pain. She states this is the best she has felt in a while. Denies f/c/s, chest pain, sob, n/v/d. Appetite is good. She is not sure if she has worked with PT. Review of Systems Review of Systems: All systems reviewed & are unremarkable except as noted in HPI & below Physical Exam Physical Exam: Gen: WD/WN, NAD, A&O x3 HEENT: Normocephalic, atraumatic, conjunctivae moist, sclerae anicteric, mucous membranes moist. Lung: Clear to Auscultation bilaterally, no wheezes/rales/rhonchi Heart: Regular rate, regular rhythm, no murmurs, rubs, or gallops Abdomen: Soft, NT, ND +BS x 4 Extremities: No edema, L knee flexion contracture Skin: Warm, no rash, negative turgor. Results & Data Results & Data Vital Signs (Past 12 Hours) Vital Signs Temp Pulse Resp BP Pulse Ox O2 Del Method 07/21/23 12:28 Room Air 07/21/23 08:33 64 07/21/23 07:25 36.7 C 57 L 16 134/73 92 Room Air Laboratory Results Short CBC 07/21/23 07/21/23 Range/Units 08:22 09:03 WBC Cancelled 5.79 Hgb Cancelled 10.9 L Hct Cancelled 35.7 L Plt Count Cancelled 267 BMP 07/21/23 09:03 Potassium 4.2 Medications Administered Current Inpatient Medications Acetaminophen (Acetaminophen 325 Mg Tab) 325 mg PO Q6H PRN PRN Reason: fever/pain Stop: 08/14/23 04:03 Last Admin: 07/18/23 05:08 Dose: 325 mg Acetaminophen/Codeine Phosphate (Acetaminophen W/Codeine #3 1 Tab) 1 tab PO QID PRN PRN Reason: pain not relieved by tylenol Stop: 08/14/23 04:03 Atenolol (Atenolol 25 Mg Tablet) 25 mg PO DAILY [facility] Stop: 08/14/23 08:59 Last Admin: 07/21/23 08:31 Dose: 25 mg Promethazine HCl 6.25 mg/ (Sodium Chloride) 50.25 mls @ 201 mls/hr IV Q6H PRN PRN Reason: Nausea And Vomiting Stop: 08/14/23 03:45 Ceftriaxone Sodium 2,000 mg/ (Dextrose) 50 mls @ 100 mls/hr IV Q24H SABA; Protocol Stop: 07/21/23 23:59 Last Infusion: 07/20/23 21:36 Dose: Infused Lactobacillus Acidophilus (Advanced Probiotic 625 Mg Capsule) 1,250 mg PO DAILY [facility] Stop: 08/17/23 15:14 Last Admin: 07/21/23 08:31 Dose: 1,250 mg Levothyroxine Sodium (Levothyroxine Sodium 112 Mcg Tablet) 112 mcg PO DAILYBB [facility] Stop: 08/14/23 06:29 Last Admin: 07/21/23 05:39 Dose: 112 mcg Lidocaine (Lidocaine 5% 1 Patch) [facility] [place] [facility]: 08/14/23 09:14 Last Admin: 07/21/23 11:06 Dose: Not Given Losartan Potassium (Losartan Potassium 25 Mg Tab) 25 [facility] [place] Stop: 08/14/23 08:59 Last Admin: 07/21/23 08:30 Dose: 25 mg Miscellaneous (Remove Lidoderm Patch) 1 each N/A DAILY@2100 [facility] Stop: 08/14/23 20:59 Last Admin: 07/20/23 21:05 Dose: Not Given Olanzapine (Olanzapine 10 Mg/2.1 Ml Sdv) 2.5 mg IM Q4H PRN PRN Reason: Agitation Stop: 08/14/23 04:03 Last Admin: 07/19/23 23:45 Dose: 2.5 mg Pantoprazole Sodium (Pantoprazole 40 Mg Tab) 40 mg PO BID [facility] Stop: 08/14/23 08:59 Last Admin: 07/21/23 08:30 Dose: 40 mg Polyethylene Glycol (Polyethylene (Miralax) 17 Gm Pack) 17 gm PO DAILY PRN PRN Reason: Constipation Stop: 08/17/23 14:58 Last Admin: 07/20/23 17:38 Dose: 17 gm Senna/Docusate Sodium (Docusate Sodium/Senna 50/8.6mg Tab) 1 tab [facility] [place] Stop: 08/20/23 06:29 Last Admin: 07/21/23 08:30 Dose: 1 tab Sertraline HCl (Sertraline Hcl 100 Mg Tablet) 100 mg [facility] [place] Stop: 08/14/23 08:59 Last Admin: 07/21/23 08:30 Dose: 100 mg
[2023-07-21 13:58] LABS: Anion Gap 16 (3-11); Calcium 9.4 mg/dl (8.6-10.3); Carbon Dioxide 16 mmol/L (21-32); Chloride 111 mmol/L (98-107); Sodium 143 mmol/L (136-145)
[2023-07-21 14:02] LABS: BUN Creatinine Ratio 20.9 (10-20); Blood Urea Nitrogen 19 mg/dl (6-23); Creatinine Clr Calc Pharmacy 40.7 ml/min; Est GFR (African American) 66.7 ml/min; Est GFR (Non-African American) 57.5 ml/min; Glucose 165 mg/dl (70-99(Fasting))
[2023-07-21] MEDS: PNEUMOCOCCAL VACCINE (PCV20) 20-VAL CONJ-DIP CRM/PF 0.5 ML SYR IM ONE (18:03)
[2023-07-21] MEDS: INFLUENZA VACCINE HIGH-DOSE (HD-IIV4) PF 65+ 0.7mL SYR IM ONE (18:04)
[2023-07-21] MEDS: HEPARIN SOD 5,000 UNIT/0.5 ML VIAL SQ SCH (21:58)
[2023-07-21] MEDS: MELATONIN 3 MG TAB PO PRN (23:51)
[2023-07-22 07:56] LABS: Estimated Average Glucose 128 mg/dl; Hemoglobin A1C 6.1 % (4.5-5.6)
[2023-07-22 08:19] LABS: Est GFR (African American) 59.5 ml/min; Est GFR (Non-African American) 51.3 ml/min; Potassium 4.3 mmol/L (3.5-5.1)
[2023-07-22] MEDS: CHOLECALCIFEROL 25 MCG (1000 UNITS) TAB PO SCH (09:01)
--- NOTE | 2023-07-22 14:46 | Hospitalist Progress Note ---
Date of Service July 22, 2023 Assessment & Plan (1) Ambulatory dysfunction: Plan This is a 87-year-old lady with PMH of HTN, HLD, PVD, cerebral aneurysm, MERY on CPAP, GERD, thyroid cancer status post surgery, postsurgical hypothyroidism, anxiety/mood disorder came in with worsening low back pain with radiation to bilateral lower extremities left greater than right. Denies any trauma or fever or chills, denies incontinence symptoms. Of note, patient did not tolerate tramadol prescription as an outpatient/increased confusion with 1 dose of tramadol. She is being managed for the following: Recent imagin07/13/2023 x-ray left knee -genu valgum with flattening, sclerosis and irregularity of the lateral femoral condyle possibly representing a chronic fracture deformity, new from 2020 comparison with an adjacent 2.6 cm lateral bone fragment. Severe joint space narrowing of the lateral compartment. 07/[address]: Age-indeterminate compression fracture of L2, L3 and L5. 7 mm retropulsion of the L3 compression fracture fragment. 07/12 x-ray tibia-fibula x left -degenerative changes noted, no evidence of acute fracture. 07/12 CTAP: Large hiatal hernia noted. Age indeterminant but likely chronic compression fracture of T9, L2, L3 and L5 noted. 07/12 CXR: No acute finding. 07/14 CTAP: Large hiatal hernia, small gallstone, left hip ORIF noted. Trace left pleural effusion noted. 07/16/2023 MRI spine: Age-indeterminate compression deformities of L2 and L3. Significant endplate edema is noted at L2 - L3 and L3 - L4. Subacute fractures are considered less likely. Acute to subacute coccygeal fracture with overlying soft tissue edema noted. Low back pain with radiation to mostly LLE Concern for Thoracic and lumbar compression fracture Coccygeal fracture Patient came in with worsening low back pain, with radiation to LLE greater than RLE Imagings reviewed, as above. At presentation: Patient with no incontinence symptoms, no fever reported, WBC WNL. Patient reported her pain is affecting her activities of daily living. Pain management, bowel regimen while on pain management. Orthospine evaluated, conservative management in this frail lady. PT/OT. Patient reports pain under control. Chronic fracture deformity x left knee Patient with left knee pain and has been putting more weight on her RLE Patient denies any trauma. No swelling or erythema noted on exam. Orthopedic evaluated, continue conservative management. Pain Mx, fall precaution. Complicated UTI Likely metabolic encephalopathyy, likely secondary to above Patient noted to have increased confusion prior to arrival. Patient started on Zosyn 07/14 to rocephin 07/17, completed 7 day course as of 07/21/23 Uncontrolled hypertension: -> resolved. Likely secondary to illness and back pain. Continue home atenolol, losartan. BP now stable. BP today is 134/73 Vitamin D Deficiency : Vit D level is 17 Started Vit D3 1000 units daily. Repeat vit D level in 3 months. Other chronic medical conditions: Continue with/resume home meds as and when able. 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 (No recent [place] [facility] [place] thyroid cancer status post surgery postsurgical hypothyroidism, euthyroid as of recent outpatient TSH chronic anemia, hemoglobin at baseline prediabetes, hemoglobin A1c of 5.9 last November 2022, repeat a1c in a.m. DVT prophylaxis. Hep sq Full code PT/OT, likely will need rehab, CM to assist with DC planning. Can DC to rehab. to med surg until then Patient's son Mr. Julio Burnett, contact #[phone]. Pt was seen and examined in collaboration with Dr. Engel, please see addendum A total of 40 minutes was spent coordinating, documenting, and providing care for this patient excluding time spent in the performance of separately billed services. This included personally viewing all current laboratories and imaging studies, medication reconciliation, outpatient chart review, and discussion with specialists. Admission and Anticipated Discharge Date Admission Date: July 15, 2023 Supervising Physician Co-Signing Physician Notes Patient seen and examined I agree with findings and plan as detailed by Advanced Provider and take full responsibility I spent a total of 20 minutes coordinating, documenting and providing care for this patient excluding time spent in performance of separately billed services Subjective Patient was seen and examined in 376-2 in follow up for low back pain. Feeling comfortable, sitting at bedside eating. No overnight complaints. Denies F/C, lightheadedness, chest pain, SOB, n/v/d. Normal appetite. Just received something to move her bowels. Review of Systems Review of Systems: At least ten systems reviewed and negative except as noted in the HPI. Physical Exam Physical Exam: Gen: WD/WN, NAD, A&O x3, sitting in bedside chair, pleasant HEENT: Normocephalic, atraumatic, conjunctivae moist, sclerae anicteric, mucous membranes moist. Lung: Clear to Auscultation bilaterally, no wheezes/rales/rhonchi Heart: Regular rate, regular rhythm, no murmurs, rubs, or gallops Abdomen: Soft, NT, ND +BS x 4 Extremities: No edema, +L knee flexion contracture Skin: Warm, no rash Results & Data Results & Data Vital Signs (Past 12 Hours) Vital Signs Temp Pulse Resp BP Pulse Ox O2 Del Method 07/22/23 08:00 36.6 C 61 16 120/77 95 Room Air Laboratory Results BMP 07/22/23 07:14 Sodium 138 Potassium 4.3 Chloride 106 Carbon Dioxide 27 BUN 23 Creatinine 1.00 Glucose 92 Calcium 9.0 Diagnostic Findings Abdomen/Pelvis CT 07/15/23 00:09 Exam(s): CT ABDOMEN + PELVIS With Contrast IV Amt: 91 ml opti 320 EXAM: CT Abdomen and Pelvis With Intravenous Contrast CLINICAL HISTORY: Reason for exam: RLQ abdominal pain; vomiting. TECHNIQUE: Axial computed tomography images of the abdomen and pelvis with intravenous contrast. CTDI is 15.01 mGy and DLP is 679.43 mGy-cm. Automated exposure control was utilized for the study. A dose lowering technique was utilized adhering to the principles of ALARA. CONTRAST: Patient received 91 ml opti 320 of IV contrast COMPARISON: No relevant prior studies available. FINDINGS: Lung bases: Unremarkable. No mass. No consolidation. Pleural space: Trace LEFT pleural effusion. Mediastinum: Large hiatal hernia which contained the majority of the stomach. ABDOMEN: Liver: Small hepatic cystic lesions. Gallbladder and bile ducts: Small gallstone. No ductal dilation. Pancreas: Unremarkable. No mass. No ductal dilation. Spleen: Unremarkable. No splenomegaly. Adrenals: Unremarkable. No mass. Kidneys and ureters: Renal cyst. No hydronephrosis. Stomach and bowel: Diverticulosis, without acute diverticulitis. No small bowel obstruction. No free intraperitoneal air. PELVIS: Appendix: No findings to suggest acute appendicitis. Bladder: Decompression of my bladder. Reproductive: Unremarkable as visualized. ABDOMEN and PELVIS: Intraperitoneal space: Unremarkable. No free air. No significant fluid collection. Bones/joints: Degenerative changes of the spine. LEFT hip ORIF. No acute fracture. No dislocation. Soft tissues: Unremarkable. Vasculature: Atherosclerotic changes of the aorta. No abdominal aortic aneurysm. Lymph nodes: Unremarkable. No enlarged lymph nodes. IMPRESSION: 1. Trace LEFT pleural effusion. 2. Large hiatal hernia which contained the majority of the stomach. 3. Small gallstone. 4. LEFT hip ORIF. 5. Diverticulosis, without acute diverticulitis. No small bowel obstruction. No free intraperitoneal air. Electronically signed by: Nuno Rader MD 07/15/23 01:38 AM Lumbar Spine MRI 07/16/23 11:17 MRI OF THE LUMBAR SPINE WITHOUT IV CONTRAST CLINICAL HISTORY: Low back pain. COMPARISON STUDY: CT scan of the lumbar spine dated 07/13/2023. TECHNIQUE: MRI of the lumbar spine was performed utilizing various T1 and T2- weighted sequences in the axial and sagittal planes. IV contrast was not administered for this examination. The examination is significantly compromised by motion artifact. FINDINGS: Lumbar spine: Marrow signal intensity is markedly heterogeneous. There are mild inferior endplate compression deformities of L2 and L3. These are age- indeterminate but likely chronic. Significant endplate edema at L1-L2 and L2-L3 is likely on a degenerative basis. There are mildly retropulsed fragments at L3. There is a mild chronic superior endplate compression deformity of L5. Vertebral body height is otherwise maintained throughout the lumbar spine. There is minimal retrolisthesis at L3-L4. Alignment is otherwise preserved. There is mild lumbar levocurvature centered at L3. Large anterior and lateral marginal osteophytes are seen throughout. There is no evidence of spondylolysis. No destructive bony lesion is seen. Chronic degenerative endplate changes seen at all levels. As noted above, there is marked endplate edema at L2-L3 and L3-L4. Milder endplate edema is seen at T10-T11. Intervertebral discs: Disc desiccation is seen throughout the lumbar spine. Moderate to severe loss of height is noted at all levels. Fluid within the L2- L3, L3-L4, and L4-L5 disc spaces is likely degenerative. There is no significant paravertebral edema. Spinal cord: The visualized spinal cord is normal in morphology and signal intensity. The conus medullaris terminates at the level of L2. The nerve roots of the cauda equina are grossly unremarkable. L1-L2: There is a small posterior disc bulge. There is no significant acquired compromise of the central canal. Lateral disc bulges contribute to bilateral subarticular stenosis. In conjunction with facet arthropathy, there is mild bilateral neural foraminal narrowing. L2-L3: There is a large posterior disc bulge. In conjunction with hypertrophy of the ligamentum flavum, there is at least moderate central canal stenosis at this level with a minimum AP diameter of 6.5 mm. Lateral disc bulges contribute to bilateral subarticular stenosis. In conjunction with facet arthropathy, there is moderate to severe bilateral neural foraminal stenosis, right greater than left. L3-L4: There is a large posterior disc bulge. In conjunction with hypertrophy of the ligamentum flavum, there is moderate to severe central canal stenosis at this level with a minimum AP diameter of 5.5 mm. Lateral disc bulges contribute to bilateral subarticular stenosis. In conjunction with facet arthropathy, there is moderate to severe bilateral neural foraminal stenosis. L4-L5: There is posterior disc bulge with annular fissure. In conjunction with hypertrophy of the ligamentum flavum, there is severe central canal stenosis at this level with a minimum AP canal diameter of 3 mm. Lateral disc bulge contributes to bilateral subarticular stenosis. In conjunction with facet arthropathy, there is severe right and moderate left neural foraminal stenosis. L5-S1: There is minimal posterior disc bulge. The central canal is clear. Lateral disc bulges contribute to bilateral subarticular stenosis. This may abut the exiting bilateral L5 nerve roots. In conjunction with facet arthropathy, there is moderate left and mild right neural foraminal stenosis. Sacrum: The visualized sacrum is normal in morphology. There is marrow edema identified in the coccyx with precoccygeal soft tissue edema. Soft tissues: There is fatty atrophy of the paraspinous musculature. There is asymmetric atrophy of the left iliopsoas musculature. The retroperitoneal structures are grossly unremarkable but incompletely evaluated. The bladder appears distended. IMPRESSION: 1. Significantly motion compromised examination. 2. There are age-indeterminate compression deformities of L2 and L3. Significant endplate edema is noted at L2-L3 and L3-L4, and this is likely on a degenerative basis. Subacute fractures are considered less likely but not entirely excluded. Clinical correlation will be required. 3. Suspect an acute to subacute coccygeal fracture with overlying soft tissue edema. 4. Advanced lumbosacral spondylosis and scoliosis as above with multilevel acquired compromise of the central canal. See discussion for detailed level by level analysis. 5. Fluid is seen within several disc spaces and is likely on a degenerative basis. Dictated: 07/16/2023 12:51 PM Transcribed: 07/16/2023 1:34 PM Armida [id number] [facility] [id number] Electronically signed by: Donovan Chester M.D. 07/16/2023 2:16 PM
[2023-07-23] MEDS: LACTULOSE SYRUP 30 GM/45 ML UDP PO STA (12:34)
--- NOTE | 2023-07-23 14:21 | Hospitalist Progress Note ---
Date of Service July 23, 2023 Assessment & Plan (1) Ambulatory dysfunction: Plan This is a 87-year-old lady with PMH of HTN, HLD, PVD, cerebral aneurysm, MERY on CPAP, GERD, thyroid cancer status post surgery, postsurgical hypothyroidism, anxiety/mood disorder came in with worsening low back pain with radiation to bilateral lower extremities left greater than right. Denies any trauma or fever or chills, denies incontinence symptoms. Of note, patient did not tolerate tramadol prescription as an outpatient/increased confusion with 1 dose of tramadol. She is being managed for the following: Recent imagin07/13/2023 x-ray left knee -genu valgum with flattening, sclerosis and irregularity of the lateral femoral condyle possibly representing a chronic fracture deformity, new from 2020 comparison with an adjacent 2.6 cm lateral bone fragment. Severe joint space narrowing of the lateral compartment. 07/[address]: Age-indeterminate compression fracture of L2, L3 and L5. 7 mm retropulsion of the L3 compression fracture fragment. 07/12 x-ray tibia-fibula x left -degenerative changes noted, no evidence of acute fracture. 07/12 CTAP: Large hiatal hernia noted. Age indeterminant but likely chronic compression fracture of T9, L2, L3 and L5 noted. 07/12 CXR: No acute finding. 07/14 CTAP: Large hiatal hernia, small gallstone, left hip ORIF noted. Trace left pleural effusion noted. 07/16/2023 MRI spine: Age-indeterminate compression deformities of L2 and L3. Significant endplate edema is noted at L2 - L3 and L3 - L4. Subacute fractures are considered less likely. Acute to subacute coccygeal fracture with overlying soft tissue edema noted. Low back pain with radiation to mostly LLE Concern for Thoracic and lumbar compression fracture Coccygeal fracture Patient came in with worsening low back pain, with radiation to LLE greater than RLE Imagings reviewed, as above. At presentation: Patient with no incontinence symptoms, no fever reported, WBC WNL. Patient reported her pain is affecting her activities of daily living. Pain management, bowel regimen while on pain management. Orthospine evaluated, conservative management in this frail lady. PT/OT. Patient reports pain under control. Chronic fracture deformity x left knee Patient with left knee pain and has been putting more weight on her RLE Patient denies any trauma. No swelling or erythema noted on exam. Orthopedic evaluated, continue conservative management. Pain Mx, fall precaution. Complicated UTI Likely metabolic encephalopathyy, likely secondary to above Patient noted to have increased confusion prior to arrival. Patient started on Zosyn 07/14 to rocephin 07/17, completed 7 day course as of 07/21/23 Uncontrolled hypertension: -> resolved. Likely secondary to illness and back pain. Continue home atenolol, losartan. BP now stable. BP today is 134/73 Vitamin D Deficiency : Vit D level is 17 Started Vit D3 1000 units daily. Repeat vit D level in 3 months. Other chronic medical conditions: Continue with/resume home meds as and when able. 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 ([place] [facility] [place] thyroid cancer status post surgery postsurgical hypothyroidism, euthyroid as of recent outpatient TSH chronic anemia, hemoglobin at baseline prediabetes, hemoglobin A1c of 5.9 last November 2022, repeat a1c in a.m. Constipation Last documented bowel movement 07/14 No abdominal TTP, N/V concerning of SBO but consider obtaining KUB if develops Has been receiving bowel regimen, gave additional lactulose this AM. Tap water enema ordered in lactulose if unable to move her bowels this afternoon DVT prophylaxis. Hep sq Full code PT/OT, likely will need rehab, CM to assist with DC planning. Can DC to rehab. to med surg until then Patient's son Mr. Julio Burnett, contact #[phone]. Pt was seen and examined in collaboration with Dr. Engel, please see addendum A total of 30 minutes was spent coordinating, documenting, and providing care for this patient excluding time spent in the performance of separately billed services. This included personally viewing all current laboratories and imaging studies, medication reconciliation, outpatient chart review, and discussion with specialists. Admission and Anticipated Discharge Date Admission Date: July 15, 2023 Supervising Physician Co-Signing Physician Notes Patient seen and examined I agree with findings and plan as detailed by Advanced Provider and take full responsibility I spent a total of 15 minutes coordinating, documenting and providing care for this patient excluding time spent in performance of separately billed services Subjective Patient was seen and examined in 376-2 in follow up for low back pain. Feeling comfortable, sitting at bedside eating. No overnight complaints. Feeling "better than I have in months." Denies F/C, lightheadedness, chest pain, SOB, n/v/d. Normal appetite. Last documented bowel movement 07/14. No abdominal TTP, N/V. Has been receiving bowel regimen, gave additional lactulose this AM. Review of Systems Review of Systems: At least ten systems reviewed and negative except as noted in the HPI. Physical Exam Physical Exam: Gen: WD/WN, NAD, A&O x3, sitting in bedside chair, pleasant HEENT: Normocephalic, atraumatic, conjunctivae moist, sclerae anicteric, mucous membranes moist. Lung: Clear to Auscultation bilaterally, no wheezes/rales/rhonchi Heart: Regular rate, regular rhythm, no murmurs, rubs, or gallops Abdomen: Soft, NT, ND +BS x 4 Extremities: No edema, +L knee flexion contracture Skin: Warm, no rash Results & Data Results & Data Vital Signs (Past 12 Hours) Vital Signs Temp Pulse Pulse Resp BP BP Pulse Ox 07/23/23 12:42 36.5 C 60 14 124/74 96 07/23/23 08:22 58 L 14 132/64 92 O2 Del Method 07/23/23 12:42 Room Air 07/23/23 08:22 Room Air
[2023-07-23] MEDS: POLYETHYLENE (MIRALAX) 17 GM PACK PO SCH (20:09)
[2023-07-24 06:23] LABS: Hematocrit (blood only) 32.6 % (37.0-47.0); Hemoglobin 10.4 g/dl (12.0-16.0); Mean Corpuscular Hemoglobin 28.6 pg (25.0-34.0); Mean Corpuscular Hgb Conc 31.9 g/dL (32.0-36.0); Mean Corpuscular Volume 89.6 fL (80.0-100.0); Mean Platelet Volume 9.5 fL (9.4-12.4); Platelet Count 267 K/uL (130-400); RDW Coefficient of Variation 15.7 % (11.5-14.5); Red Blood Count 3.64 M/uL (4.20-5.40); White Blood Count 5.49 K/ul (4.8-10.8)
[2023-07-24 06:31] LABS: BUN Creatinine Ratio 31.6 (10-20); Calcium 9.2 mg/dl (8.6-10.3); Est GFR (African American) 63.3 ml/min; Est GFR (Non-African American) 54.6 ml/min; Potassium 4.4 mmol/L (3.5-5.1)
--- NOTE | 2023-07-24 11:26 | Hospitalist Progress Note ---
Date of Service July 24, 2023 Assessment & Plan (1) Ambulatory dysfunction: Plan 87-year-old woman with PMH of HTN, HLD, PVD, cerebral aneurysm, MERY on CPAP, GERD, thyroid cancer status post surgery, postsurgical hypothyroidism, anxiety/mood disorder came in with worsening low back pain with radiation to bilateral lower extremities left greater than right. Denies any trauma or fever or chills, denies incontinence symptoms. Of note, patient did not tolerate tramadol prescription as an outpatient/increased confusion with 1 dose of tramadol. Recent imagin07/13/2023 x-ray left knee -genu valgum with flattening, sclerosis and irregularity of the lateral femoral condyle possibly representing a chronic fracture deformity, new from 2020 comparison with an adjacent 2.6 cm lateral bone fragment. Severe joint space narrowing of the lateral compartment. 07/[address]: Age-indeterminate compression fracture of L2, L3 and L5. 7 mm retropulsion of the L3 compression fracture fragment. 07/12 x-ray tibia-fibula x left -degenerative changes noted, no evidence of acute fracture. 07/12 CTAP: Large hiatal hernia noted. Age indeterminant but likely chronic compression fracture of T9, L2, L3 and L5 noted. 07/12 CXR: No acute finding. 07/14 CTAP: Large hiatal hernia, small gallstone, left hip ORIF noted. Trace left pleural effusion noted. 07/16/2023 MRI spine: Age-indeterminate compression deformities of L2 and L3. Significant endplate edema is noted at L2 - L3 and L3 - L4. Subacute fractures are considered less likely. Acute to subacute coccygeal fracture with overlying soft tissue edema noted. Low back pain with radiation to mostly LLE Concern for Thoracic and lumbar compression fracture Coccygeal fracture Patient came in with worsening low back pain, with radiation to LLE greater than RLE Imaging studies as above At presentation: Patient reported her pain is affecting her activities of daily living. Pain management, bowel regimen while on pain management. Orthospine evaluated and recommended conservative management in this frail lady. PT/OT evaluation noted Patient reports pain under control Chronic fracture deformity x left knee Patient with left knee pain and has been putting more weight on her RLE Patient denies any trauma. No swelling or erythema noted on exam. Orthopedic evaluated, continue conservative management. Pain Mx, fall precaution. Complicated UTI Likely metabolic encephalopathyy, likely secondary to above Patient noted to have increased confusion prior to arrival. Patient started on Zosyn 07/14 to rocephin 07/17 Completed 7 day course as of 07/21/23 Hypertension: Currently on home atenolol, losartan. Monitor BP and adjust as appropriate Vitamin D Deficiency : Vit D level is 17 Started Vit D3 1000 units daily during this admission Repeat vit D level in 3 months. Other chronic medical conditions: Continue with/resume home meds as and when able. 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 (No recent follow-up with [facility] [place] thyroid cancer status post surgery postsurgical hypothyroidism, euthyroid as of recent outpatient TSH chronic anemia, hemoglobin at baseline prediabetes, hemoglobin A1c of 5.9 last November 2022, repeat a1c in a.m. Constipation Last documented bowel movement 07/14 No abdominal TTP, N/V concerning of SBO but consider obtaining KUB if develops Has been receiving bowel regimen, gave additional lactulose this AM. Tap water enema ordered in lactulose if unable to move her bowels this afternoon DVT prophylaxis. Hep sq Full code PT/OT, likely will need rehab, CM to assist with DC planning. Can DC to rehab. to med surg until then Patient's son Mr. Julio Burnett, contact #[phone]. I spent a total of 30 minutes coordinating, documenting and providing care for this patient excluding time spent in performance of separately billed services Admission and Anticipated Discharge Date Admission Date: July 15, 2023 Subjective Patient seen and examined No new complaints Physical Exam Constitutional: + well hydrated; no acute distress Elderly woman Eyes: PERRL, conjunctivae normal, anicteric sclerae ENMT: external ear and nose normal, oropharynx normal Respiratory: normal respiratory effort, lungs clear to auscultation Cardiovascular: S1 S2 Gastrointestinal (Abdomen): normal bowel sounds, soft, nontender, no hepatosplenomegaly Musculoskeletal: No pedal edema Neurologic: PERRL, EOMI, accommodation nl, no face palsy, no dysarthria Psychiatric: A+Ox3, euthymic affect Results & Data Results & Data Vital Signs (Past 12 Hours) Vital Signs Temp Pulse Resp BP Pulse Ox O2 Del Method 07/24/23 07:47 36.4 C L 62 16 144/76 H 97 Room Air Laboratory Results Abnormal lab results 07/24/23 Range/Units 05:35 RBC 3.64 L (4.20-5.40) M/uL Hgb 10.4 L (12.0-16.0) g/dl Hct 32.6 L (37.0-47.0) % MCHC 31.9 L (32.0-36.0) g/dL RDW Std Deviation 52.0 H (36.4-46.3) fL RDW Coeff of Brandan 15.7 H (11.5-14.5) % Sodium 135 L (136-145) mmol/L BUN 30 H (6-23) mg/dl BUN/Creatinine Ratio 31.6 H (10-20) Glucose 115 H (70-99(Fasting)) mg/dl
--- NOTE | 2023-07-25 10:56 | Hospitalist Progress Note ---
Date of Service July 25, 2023 Assessment & Plan (1) Ambulatory dysfunction: Plan 87-year-old woman with PMH of HTN, HLD, PVD, cerebral aneurysm, MERY on CPAP, GERD, thyroid cancer status post surgery, postsurgical hypothyroidism, anxiety/mood disorder came in with worsening low back pain with radiation to bilateral lower extremities left greater than right. Denies any trauma or fever or chills, denies incontinence symptoms. Of note, patient did not tolerate tramadol prescription as an outpatient/increased confusion with 1 dose of tramadol. Recent imagin07/13/2023 x-ray left knee -genu valgum with flattening, sclerosis and irregularity of the lateral femoral condyle possibly representing a chronic fracture deformity, new from 2020 comparison with an adjacent 2.6 cm lateral bone fragment. Severe joint space narrowing of the lateral compartment. 07/[address]: Age-indeterminate compression fracture of L2, L3 and L5. 7 mm retropulsion of the L3 compression fracture fragment. 07/12 x-ray tibia-fibula x left -degenerative changes noted, no evidence of acute fracture. 07/12 CTAP: Large hiatal hernia noted. Age indeterminant but likely chronic compression fracture of T9, L2, L3 and L5 noted. 07/12 CXR: No acute finding. 07/14 CTAP: Large hiatal hernia, small gallstone, left hip ORIF noted. Trace left pleural effusion noted. 07/16/2023 MRI spine: Age-indeterminate compression deformities of L2 and L3. Significant endplate edema is noted at L2 - L3 and L3 - L4. Subacute fractures are considered less likely. Acute to subacute coccygeal fracture with overlying soft tissue edema noted. Low back pain with radiation to mostly LLE Concern for Thoracic and lumbar compression fracture Coccygeal fracture Patient came in with worsening low back pain, with radiation to LLE greater than RLE Imaging studies as above At presentation: Patient reported her pain is affecting her activities of daily living. Pain management, bowel regimen while on pain management. Orthospine evaluated and recommended conservative management in this frail lady. PT/OT evaluation noted Pain under control Chronic fracture deformity x left knee Patient with left knee pain and has been putting more weight on her RLE Patient denied any trauma. Orthopedic evaluated, continue conservative management. Complicated UTI Likely metabolic encephalopathyy, likely secondary to above Patient noted to have increased confusion prior to arrival. Patient started on Zosyn 07/14 to rocephin /10 Completed 7 day course as of 07/21/23 Hypertension: Currently on home atenolol, losartan. Monitor BP and adjust as appropriate Vitamin D Deficiency : Vit D level is 17 Started Vit D3 1000 units daily during this admission Repeat vit D level in 3 months. Other chronic medical conditions: Continue with/resume home meds as and when able. 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 (No recent follow-up with [facility] [place] thyroid cancer status post surgery postsurgical hypothyroidism, euthyroid as of recent outpatient TSH chronic anemia, hemoglobin at baseline prediabetes, hemoglobin A1c of 5.9 last November 2022, repeat a1c in a.m. Constipation resolved DVT prophylaxis. Hep sq Full code PT/OT, likely will need rehab, CM to assist with DC planning. Can DC to rehab. to med surg until then Patient's son Mr. Julio Burnett, contact #[phone]. I spent a total of 25 minutes coordinating, documenting and providing care for this patient excluding time spent in performance of separately billed services Admission and Anticipated Discharge Date Admission Date: July 15, 2023 Subjective Patient seen and examined No new complaints Physical Exam Constitutional: + well hydrated; no acute distress Eyes: PERRL, conjunctivae normal, anicteric sclerae ENMT: external ear and nose normal, oropharynx normal Respiratory: normal respiratory effort, lungs clear to auscultation Cardiovascular: Rate/Rhythm: regular rate and regular rhythm S1 S2 Gastrointestinal (Abdomen): normal bowel sounds, soft, nontender, no hepatosplenomegaly Musculoskeletal: No pedal edema Neurologic: PERRL, EOMI, accommodation nl, no face palsy, no dysarthria Psychiatric: A+Ox3, euthymic affect Results & Data Results & Data Vital Signs (Past 12 Hours) Vital Signs Temp Pulse Resp BP Pulse Ox O2 Del Method 07/25/23 07:30 36.5 C 71 16 125/73 96 Room Air
--- NOTE | 2023-07-26 12:53 | Hospitalist Progress Note ---
Date of Service July 26, 2023 Assessment & Plan (1) Ambulatory dysfunction: Plan 87-year-old woman with PMH of HTN, HLD, PVD, cerebral aneurysm, MERY on CPAP, GERD, thyroid cancer status post surgery, postsurgical hypothyroidism, anxiety/mood disorder came in with worsening low back pain with radiation to bilateral lower extremities left greater than right. Denies any trauma or fever or chills, denies incontinence symptoms. Of note, patient did not tolerate tramadol prescription as an outpatient/increased confusion with 1 dose of tramadol. Recent imagin07/13/2023 x-ray left knee -genu valgum with flattening, sclerosis and irregularity of the lateral femoral condyle possibly representing a chronic fracture deformity, new from 2020 comparison with an adjacent 2.6 cm lateral bone fragment. Severe joint space narrowing of the lateral compartment. 07/[address]: Age-indeterminate compression fracture of L2, L3 and L5. 7 mm retropulsion of the L3 compression fracture fragment. 07/12 x-ray tibia-fibula x left -degenerative changes noted, no evidence of acute fracture. 07/12 CTAP: Large hiatal hernia noted. Age indeterminant but likely chronic compression fracture of T9, L2, L3 and L5 noted. 07/12 CXR: No acute finding. 07/14 CTAP: Large hiatal hernia, small gallstone, left hip ORIF noted. Trace left pleural effusion noted. 07/16/2023 MRI spine: Age-indeterminate compression deformities of L2 and L3. Significant endplate edema is noted at L2 - L3 and L3 - L4. Subacute fractures are considered less likely. Acute to subacute coccygeal fracture with overlying soft tissue edema noted. Low back pain with radiation to mostly LLE Concern for Thoracic and lumbar compression fracture Coccygeal fracture Patient came in with worsening low back pain, with radiation to LLE greater than RLE Imaging studies as above At presentation: Patient reported her pain is affecting her activities of daily living. Pain management, bowel regimen while on pain management. Orthospine evaluated and recommended conservative management in this frail lady. PT/OT evaluation noted Pain under control Chronic fracture deformity x left knee Patient with left knee pain and has been putting more weight on her RLE Patient denied any trauma. Orthopedic evaluated, continue conservative management. Complicated UTI Likely metabolic encephalopathy, likely secondary to above Patient noted to have increased confusion prior to arrival. Patient started on Zosyn 07/14 to rocephin /10 Completed 7 day course as of 07/21/23 Hypertension: Currently on home atenolol, losartan. Monitor BP and adjust as appropriate Vitamin D Deficiency : Vit D level is 17 Started Vit D3 1000 units daily during this admission Repeat vit D level in 3 months. Other chronic medical conditions: Continue with/resume home meds as and when able. 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 ([place] [facility] [place] thyroid cancer status post surgery postsurgical hypothyroidism, euthyroid as of recent outpatient TSH chronic anemia, hemoglobin at baseline prediabetes, hemoglobin A1c of 5.9 last November 2022, repeat a1c in a.m. Constipation resolved DVT prophylaxis. Hep sq Full code CM notified me about Insurance requiring P2P I had P2P discussion with insurance. They noted that patient's functional status appear to have returned to what was reported as her baseline. I updated CM who will have PT reevaluate and discuss with family as well. Patient's son Mr. Julio Burnett, contact #[phone]. I spent a total of 35 minutes coordinating, documenting and providing care for this patient excluding time spent in performance of separately billed services Admission and Anticipated Discharge Date Admission Date: July 15, 2023 Physical Exam Constitutional: + well hydrated; no acute distress Eyes: PERRL, conjunctivae normal, anicteric sclerae ENMT: external ear and nose normal, oropharynx normal Respiratory: normal respiratory effort, lungs clear to auscultation Cardiovascular: Rate/Rhythm: regular rate and regular rhythm Gastrointestinal (Abdomen): normal bowel sounds, soft, nontender, no hepatosplenomegaly Neurologic: PERRL, EOMI, accommodation nl, no face palsy, no dysarthria Psychiatric: A+Ox3, euthymic affect Results & Data Results & Data Vital Signs (Past 12 Hours) Vital Signs Temp Pulse Pulse Resp BP Pulse Ox O2 Del Method 07/26/23 12:51 36.5 C 72 14 106/65 94 Room Air 07/26/23 07:57 36.9 C 62 14 124/74 96 Room Air 07/26/23 07:43 36.9 C 57 L 17 124/73 92 Room Air
--- NOTE | 2023-07-27 11:52 | Hospitalist Progress Note ---
Date of Service July 27, 2023 Assessment & Plan (1) Ambulatory dysfunction: Plan 87-year-old woman with PMH of HTN, HLD, PVD, cerebral aneurysm, MERY on CPAP, GERD, thyroid cancer status post surgery, postsurgical hypothyroidism, anxiety/mood disorder came in with worsening low back pain with radiation to bilateral lower extremities left greater than right. Denies any trauma or fever or chills, denies incontinence symptoms. Of note, patient did not tolerate tramadol prescription as an outpatient/increased confusion with 1 dose of tramadol. Recent imagin07/13/2023 x-ray left knee -genu valgum with flattening, sclerosis and irregularity of the lateral femoral condyle possibly representing a chronic fracture deformity, new from 2020 comparison with an adjacent 2.6 cm lateral bone fragment. Severe joint space narrowing of the lateral compartment. 07/[address]: Age-indeterminate compression fracture of L2, L3 and L5. 7 mm retropulsion of the L3 compression fracture fragment. 07/12 x-ray tibia-fibula x left -degenerative changes noted, no evidence of acute fracture. 07/12 CTAP: Large hiatal hernia noted. Age indeterminant but likely chronic compression fracture of T9, L2, L3 and L5 noted. 07/12 CXR: No acute finding. 07/14 CTAP: Large hiatal hernia, small gallstone, left hip ORIF noted. Trace left pleural effusion noted. 07/16/2023 MRI spine: Age-indeterminate compression deformities of L2 and L3. Significant endplate edema is noted at L2 - L3 and L3 - L4. Subacute fractures are considered less likely. Acute to subacute coccygeal fracture with overlying soft tissue edema noted. Low back pain with radiation to mostly LLE Concern for Thoracic and lumbar compression fracture Coccygeal fracture Patient came in with worsening low back pain, with radiation to LLE greater than RLE Imaging studies as above At presentation: Patient reported her pain is affecting her activities of daily living. Pain management, bowel regimen while on pain management. Orthospine evaluated and recommended conservative management in this frail lady. PT/OT evaluation noted Pain under control Chronic fracture deformity x left knee Patient with left knee pain and has been putting more weight on her RLE Patient denied any trauma. Orthopedic evaluated, continue conservative management. Complicated UTI Likely metabolic encephalopathy, likely secondary to above Patient noted to have increased confusion prior to arrival. Patient started on Zosyn 07/14 to rocephin /10 Completed 7 day course as of 07/21/23 Hypertension: Currently on home atenolol, losartan. Monitor BP and adjust as appropriate Vitamin D Deficiency : Vit D level is 17 Started Vit D3 1000 units daily during this admission Repeat vit D level in 3 months. Other chronic medical conditions: Continue with/resume home meds as and when able. 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 ([place] [facility] [place] thyroid cancer status post surgery postsurgical hypothyroidism, euthyroid as of recent outpatient TSH chronic anemia, hemoglobin at baseline prediabetes, hemoglobin A1c of 5.9 last November 2022, repeat a1c in a.m. DVT prophylaxis. Hep sq Full code On 07/26/23, CM notified me about Insurance requiring P2P I had P2P discussion with insurance. They noted that patient's functional status appear to have returned to what was reported as her baseline. CM working with family regarding disposition Otherwise, patient has been medically stable for DC Patient's son Mr. Julio Burnett, contact #[phone]. I spent a total of 25 minutes coordinating, documenting and providing care for this patient excluding time spent in performance of separately billed services Admission and Anticipated Discharge Date Admission Date: July 15, 2023 Subjective Patient seen and examined. Patient denies any complaints today. Physical Exam Constitutional: + well hydrated; no acute distress Eyes: PERRL, conjunctivae normal, anicteric sclerae ENMT: external ear and nose normal, oropharynx normal Respiratory: normal respiratory effort, lungs clear to auscultation Cardiovascular: Rate/Rhythm: regular rate and regular rhythm S1 S2 Gastrointestinal (Abdomen): normal bowel sounds, soft, nontender, no hepatosplenomegaly Musculoskeletal: No pedal edema Neurologic: PERRL, EOMI, accommodation nl, no face palsy, no dysarthria Psychiatric: Alert and oriented to person, place, month and year Results & Data Results & Data Vital Signs (Past 12 Hours) Vital Signs Temp Pulse Resp BP BP Pulse Ox O2 Del Method 07/27/23 08:44 69 130/74 07/27/23 07:22 36.7 C 58 L 18 137/75 99 Room Air
--- NOTE | 2023-07-28 11:04 | Orthopedic Consultation ---
Date of Consultation July 28, 2023 Assessment & Plan (1) Left leg pain: Plan She is alert to person only. Not to place or time. She seems to be calm down compared to where she was last time we met. If knee pain is an issue a corticosteroid injection could be considered. Whether or not she would permit this or tolerated is uncertain. Her loss of knee movement is likely permanent and I do not think that there is any orthopedic intervention we could offer her to correct this at this time. She may follow-up as an outpatient with Dr. Smith as needed. She may weight-bear as tolerated on her left leg using an assistive device and assistance if she is safe. History of Present Illness Attending Physician: Erin Engel MD History of Present Illness Claudia was seen a week or so ago. At that time she was in an altered mental state which was thought to be secondary to all TRAM medication administration. Today she is sitting in a bedside chair. She reports that her left knee is sore. Allergies Allergy/AdvReac Type Severity Reaction Status Date / Time simvastatin AdvReac Intermediate Muscle Pain Verified 07/15/23 03:09 Xmjnmtd-GUN-ZrR Reductase AdvReac Intermediate MUSCLE Verified 07/15/23 03:09 Inhibitor ACHES-ELEVATED [Fzploya-Lfv-Grr Reductase CK WITH Inhibitor] LIPITOR PER HISTORY tramadol AdvReac Intermediate Confusion Verified 07/15/23 03:46 cefazolin [From Anc] AdvReac Mild rash on Verified 07/15/23 03:09 abdomen Home Medications Medication Instructions Recorded Confirmed Type pantoprazole 40 mg tablet,delayed 40 mg PO BID 10/07/18 07/15/23 History release atenolol 25 mg tablet 25 mg PO DAILY 01/06/21 07/15/23 History losartan 25 mg tablet 25 mg PO QAM 02/04/21 07/15/23 History sertraline 100 mg tablet 100 mg PO QAM 02/04/21 07/15/23 History acetaminophen 500 mg tablet 1,000 mg (2 x 500 mg) PO Q8 PRN 02/28/21 07/15/23 Rx (Tylenol Extra Strength) fever or pain #30 tabs doxycycline hyclate 100 mg capsule 100 mg PO DAILY 07/13/21 07/15/23 History levothyroxine 112 mcg tablet 112 mcg PO DAILYBB 07/13/23 07/15/23 History tramadol 25 mg tablet 25 mg PO Q6H PRN pain #20 tabs 07/13/23 07/15/23 Rx Patient History Medical History Bacteremia Infective endocarditis Leukocytosis Acute on chronic renal insufficiency Sepsis Acute kidney injury superimposed on chronic kidney disease Infection Sepsis PSVT (paroxysmal supraventricular tachycardia) Left leg swelling Fall Thyroid cancer Depression MERY (obstructive sleep apnea) HLD (hyperlipidemia) HTN (hypertension) CKD (chronic kidney disease), stage III Cerebral aneurysm "[facility] 07/22/13 3 mm fusiform aneurysm takeoff right [employer]" Hypothyroidism Hypertensive heart disease History of papillary adenocarcinoma of thyroid Esophagitis (12/26/10) Panic disorder (12/26/10) Surgical History Status post thyroidectomy Status post appendectomy Family History Other Diabetes Hypertension Social History Smoking Status: Never smoker Second Hand Exposure: No; Do You Dip or Chew Tobacco: No; Tobacco Cessation Education Requested by Patient: No Hx Alcohol Use: No Hx Substance Use: No Preferred Language: Belgian Communication Ability: Effective Phone Operator Required: No Beliefs That Will Affect Care: None marital status: / Current Living Situation: Family Current Living Situation Comment: lives with grandsom How many Children do You have: 3 Feels Safe at Home: Yes Safety Concerns: Feels Safe At This Time Assistive Devices: Walker and Wheelchair Physical Exam Physical Exam: Left knee extension is probably -40 and flexion about 100. She does not have an effusion. There is some tenderness of the knee. The lateral ossicle may be palpable. There is minimal crepitation. She can wiggle her toes. Results & Data Vital Signs (Past 12 Hours) Vital Signs Temp Pulse Resp BP Pulse Ox O2 Del Method 07/28/23 07:28 36.7 C 54 L 17 137/67 93 Room Air
--- NOTE | 2023-07-28 12:33 | Hospitalist Progress Note ---
Date of Service July 28, 2023 Assessment & Plan (1) Ambulatory dysfunction: Plan 87-year-old woman with PMH of HTN, HLD, PVD, cerebral aneurysm, MERY on CPAP, GERD, thyroid cancer status post surgery, postsurgical hypothyroidism, anxiety/mood disorder came in with worsening low back pain with radiation to bilateral lower extremities left greater than right. Denies any trauma or fever or chills, denies incontinence symptoms. Of note, patient did not tolerate tramadol prescription as an outpatient/increased confusion with 1 dose of tramadol. Recent imagin07/13/2023 x-ray left knee -genu valgum with flattening, sclerosis and irregularity of the lateral femoral condyle possibly representing a chronic fracture deformity, new from 2020 comparison with an adjacent 2.6 cm lateral bone fragment. Severe joint space narrowing of the lateral compartment. 07/[address]: Age-indeterminate compression fracture of L2, L3 and L5. 7 mm retropulsion of the L3 compression fracture fragment. 07/12 x-ray tibia-fibula x left -degenerative changes noted, no evidence of acute fracture. 07/12 CTAP: Large hiatal hernia noted. Age indeterminant but likely chronic compression fracture of T9, L2, L3 and L5 noted. 07/12 CXR: No acute finding. 07/14 CTAP: Large hiatal hernia, small gallstone, left hip ORIF noted. Trace left pleural effusion noted. 07/16/2023 MRI spine: Age-indeterminate compression deformities of L2 and L3. Significant endplate edema is noted at L2 - L3 and L3 - L4. Subacute fractures are considered less likely. Acute to subacute coccygeal fracture with overlying soft tissue edema noted. Low back pain with radiation to mostly LLE Concern for Thoracic and lumbar compression fracture Coccygeal fracture Patient came in with worsening low back pain, with radiation to LLE greater than RLE Imaging studies as above At presentation: Patient reported her pain is affecting her activities of daily living. Pain management, bowel regimen while on pain management. Orthospine evaluated and recommended conservative management in this frail lady. PT/OT evaluation noted Pain under control Chronic fracture deformity x left knee Patient with left knee pain and has been putting more weight on her RLE Patient denied any trauma. Orthopedic evaluated, continue conservative management. Complicated UTI Likely metabolic encephalopathy, likely secondary to above Patient noted to have increased confusion prior to arrival. Patient started on Zosyn 07/14 to rocephin /10 Completed 7 day course as of 07/21/23 Hypertension: Currently on home atenolol, losartan. Monitor BP and adjust as appropriate Vitamin D Deficiency : Vit D level is 17 Started Vit D3 1000 units daily during this admission Repeat vit D level in 3 months. Other chronic medical conditions: Continue with/resume home meds as and when able. 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 (No recent follow-up with [facility] [place] [facility].) thyroid cancer status post surgery postsurgical hypothyroidism, euthyroid as of recent outpatient TSH chronic anemia, hemoglobin at baseline prediabetes, hemoglobin A1c of 5.9 last November 2022, repeat a1c in a.m. DVT prophylaxis. Hep sq Full code On 07/26/23, CM notified me about Insurance requiring P2P I had P2P discussion with insurance. They noted that patient's functional status appear to have returned to what was reported as her baseline. CM working with family regarding disposition Otherwise, patient has been medically stable for DC Patient's son Mr. Julio Burnett, contact #[phone]. I spent a total of 20 minutes coordinating, documenting and providing care for this patient excluding time spent in performance of separately billed services Admission and Anticipated Discharge Date Admission Date: July 15, 2023 Subjective Patient seen and examined Patient has no new complaints Reports chronic joint and knee pains are well controlled Physical Exam Constitutional: + well hydrated; no acute distress Eyes: PERRL, conjunctivae normal, anicteric sclerae ENMT: external ear and nose normal, oropharynx normal Respiratory: normal respiratory effort, lungs clear to auscultation Cardiovascular: Rate/Rhythm: regular rate and regular rhythm S1 S2 Gastrointestinal (Abdomen): normal bowel sounds, soft, nontender, no hepatosplenomegaly Musculoskeletal: No pedal edema Neurologic: PERRL, EOMI, accommodation nl, no face palsy, no dysarthria Results & Data Results & Data Vital Signs (Past 12 Hours) Vital Signs Temp Pulse Resp BP Pulse Ox O2 Del Method 07/28/23 07:28 36.7 C 54 L 17 137/67 93 Room Air
--- NOTE | 2023-07-29 12:47 | Hospitalist Progress Note ---
Date of Service July 29, 2023 Assessment & Plan (1) Ambulatory dysfunction: Plan 87-year-old woman with PMH of HTN, HLD, PVD, cerebral aneurysm, MERY on CPAP, GERD, thyroid cancer status post surgery, postsurgical hypothyroidism, anxiety/mood disorder came in with worsening low back pain with radiation to bilateral lower extremities left greater than right. Denies any trauma or fever or chills, denies incontinence symptoms. Of note, patient did not tolerate tramadol prescription as an outpatient/increased confusion with 1 dose of tramadol. Recent imagin07/13/2023 x-ray left knee -genu valgum with flattening, sclerosis and irregularity of the lateral femoral condyle possibly representing a chronic fracture deformity, new from 2020 comparison with an adjacent 2.6 cm lateral bone fragment. Severe joint space narrowing of the lateral compartment. 07/[address]: Age-indeterminate compression fracture of L2, L3 and L5. 7 mm retropulsion of the L3 compression fracture fragment. 07/12 x-ray tibia-fibula x left -degenerative changes noted, no evidence of acute fracture. 07/12 CTAP: Large hiatal hernia noted. Age indeterminant but likely chronic compression fracture of T9, L2, L3 and L5 noted. 07/12 CXR: No acute finding. 07/14 CTAP: Large hiatal hernia, small gallstone, left hip ORIF noted. Trace left pleural effusion noted. 07/16/2023 MRI spine: Age-indeterminate compression deformities of L2 and L3. Significant endplate edema is noted at L2 - L3 and L3 - L4. Subacute fractures are considered less likely. Acute to subacute coccygeal fracture with overlying soft tissue edema noted. Low back pain with radiation to mostly LLE Concern for Thoracic and lumbar compression fracture Coccygeal fracture Patient came in with worsening low back pain, with radiation to LLE greater than RLE Imaging studies as above At presentation: Patient reported her pain is affecting her activities of daily living. Pain management, bowel regimen while on pain management. Orthospine evaluated and recommended conservative management in this frail lady. PT/OT evaluation noted Pain under control Chronic fracture deformity x left knee Patient with left knee pain and has been putting more weight on her RLE Patient denied any trauma. Orthopedic evaluated, continue conservative management. Complicated UTI Likely metabolic encephalopathy, likely secondary to above Patient noted to have increased confusion prior to arrival. Patient started on Zosyn 07/14 to rocephin /10 Completed 7 day course as of 07/21/23 Hypertension: Currently on home atenolol, losartan. Monitor BP and adjust as appropriate Vitamin D Deficiency : Vit D level is 17 Started Vit D3 1000 units daily during this admission Repeat vit D level in 3 months. Other chronic medical conditions: Continue with/resume home meds as and when able. 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 (No recent follow-up with [facility] Neurosurgery.) thyroid cancer status post surgery postsurgical hypothyroidism, euthyroid as of recent outpatient TSH chronic anemia, hemoglobin at baseline prediabetes, hemoglobin A1c of 5.9 last November 2022, repeat a1c in a.m. DVT prophylaxis. Hep sq Full code On 07/26/23, CM notified me about Insurance requiring P2P I had P2P discussion with insurance. They noted that patient's functional status appear to have returned to what was reported as her baseline. CM working with family regarding disposition Otherwise, patient has been medically stable for DC Patient's son Mr. Julio Burnett, contact #[phone]. I spent a total of 20 minutes coordinating, documenting and providing care for this patient excluding time spent in performance of separately billed services Admission and Anticipated Discharge Date Admission Date: July 15, 2023 Subjective Patient seen and examined No complaints today Physical Exam Constitutional: + well hydrated; no acute distress Eyes: PERRL, conjunctivae normal, anicteric sclerae ENMT: external ear and nose normal, oropharynx normal Respiratory: normal respiratory effort, lungs clear to auscultation Cardiovascular: Rate/Rhythm: regular rate and regular rhythm S1 S2 Gastrointestinal (Abdomen): normal bowel sounds, soft, nontender, no hepatosplenomegaly Musculoskeletal: No pedal edema Neurologic: PERRL, EOMI, accommodation nl, no face palsy, no dysarthria Psychiatric: A+Ox3, euthymic affect Results & Data Results & Data Vital Signs (Past 12 Hours) Vital Signs Temp Pulse Resp BP Pulse Ox O2 Del Method 07/29/23 07:14 36.6 C 65 20 166/82 H 96 Room Air
[2023-07-29] MEDS: LORATADINE 10 MG TAB PO ONE (21:45)
[2023-07-29] MEDS: diphenhydrAMINE 2%/ZINC 0.1% CREAM 28.4GM TUBE EXT PRN (21:45)
--- NOTE | 2023-07-30 11:19 | Discharge Summary ---
Date of Service July 30, 2023 Admission HPI Per Admitting Provider History obtained from patient, family, and records. Patient is a fair historian. Medical history significant for hypertension, hyperlipidemia, PVD, history cerebral aneurysm as per records, MERY not on CPAP as per records, GERD, thyroid cancer status post surgery, postsurgical hypothyroidism, anxiety/mood disorder. Last confinement July 2021 for left hip fracture status post surgery. Postop confusion noted attributed to UTI, pain medications. Patient noted worsening low back pain with hip radiation in the last week. No recollection of recent trauma, no fever, no chills. Denies incontinence symptoms. Patient consulted ER [address] imaging showed 1. Large hiatal hernia. Please note that there is thickening of the stomach within it supra diaphragmatic portion. Findings may be due to underdistention. Inflammatory changes are also possible. 2. Age indeterminate, but likely chronic, compression fractures of T9, L2, L3, and L5. Consider correlation with point tenderness. If there is further concern, consider MRI. 3. No other acute findings. Patient requested to be discharged home. Patient discharged home with tramadol prescription. Worsening back pain and spasms noted at home. Increased confusion after 1 dose of tramadol prescription. Patient denies headache, chest pain, SOB. Subsequent nausea, emesis symptoms. SBP 180s upon arrival at the ER. 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 Admission Exam Per Admitting Provider GENERAL: Coherent, uncomfortable, slightly irate, no respiratory distress SKIN: Normal color,, warm HEENT: [place] palpebral conjunctivae, no ptosis, dry buccal mucosa NECK : Supple, no tenderness CHEST : CTA, no tenderness HEART : RRR, no obvious murmurs ABDOMEN: Some distention, nontender BACK : Low back tenderness EXTREMITIES : No LE swelling, no LE tenderness, no other conspicuous deformities noted NEUROLOGIC : Coherent, no facial asymmetry, mild hearing impairment, gait and stance not assessed Principal Diagnosis Thoracic and lumbar compression fracture Coccygeal fracture Low back pain Chronic deformity x left knee Complicated UTI Metabolic encephalopathy Vitamin D deficiency Discharge Exam GENERAL: Alert and awake, NAD, on room air. Mild hearing impairment. HEENT: No pallor, no icterus. Pupils equal, round and reactive to light. Oral mucosa moist. NECK: No JVD, no neck masses. HEART: S1 and S2 heard. Regular rate and rhythm. No murmur, no gallop. RESPIRATORY SYSTEM: Normal AP diameter. No accessory muscle use. No wheezing, no crackles. ABDOMEN: Soft, bowel sounds present, nontender, no distention. CENTRAL NERVOUS SYSTEM: No facial droop. Speech is clear. Obeys simple commands. Moves extremities. EXTREMITIES: No edema, no erythema seen. Left knee with flexion contracture and valgus deformity. No erythema/effusion noted. Discharge Data Allergies Allergy/AdvReac Type Severity Reaction Status Date / Time simvastatin AdvReac Intermediate Muscle Pain Verified 07/15/23 03:09 Zbgvynk-ZQX-ZaL Reductase AdvReac Intermediate MUSCLE Verified 07/15/23 03:09 Inhibitor ACHES-ELEVATED [Xahogns-Sbf-Mfi Reductase CK WITH Inhibitor] LIPITOR PER HISTORY tramadol AdvReac Intermediate Confusion Verified 07/15/23 03:46 cefazolin [From Ancef] AdvReac Mild rash on Verified 07/15/23 03:09 abdomen Consultations 07/15/23 03:03 ED Decision to Admit Stat 07/15/23 13:41 Consult Orthopedic Spine Surgery Routine 07/15/23 14:00 Consult Orthopedic Surgery Routine Ordered Studies 07/15/23 00:09 CT abd pelvis IV con only Stat 07/16/23 11:17 MR lumbar spine wo con Urgent Hospital Course (1) Ambulatory dysfunction: Plan 87-year-old woman with PMH of HTN, HLD, PVD, cerebral aneurysm, MERY on CPAP, GERD, thyroid cancer status post surgery, postsurgical hypothyroidism, anxiety/mood disorder came in with worsening low back pain with radiation to bilateral lower extremities left greater than right. Denies any trauma or fever or chills, denies incontinence symptoms. Of note, patient did not tolerate tramadol prescription as an outpatient/increased confusion with 1 dose of tramadol. Recent imagin07/13/2023 x-ray left knee -genu valgum with flattening, sclerosis and irregularity of the lateral femoral condyle possibly representing a chronic fracture deformity, new from 2020 comparison with an adjacent 2.6 cm lateral bone fragment. Severe joint space narrowing of the lateral compartment. 07/[address]: Age-indeterminate compression fracture of L2, L3 and L5. 7 mm retropulsion of the L3 compression fracture fragment. 07/12 x-ray tibia-fibula x left -degenerative changes noted, no evidence of acute fracture. 07/12 CTAP: Large hiatal hernia noted. Age indeterminant but likely chronic compression fracture of T9, L2, L3 and L5 noted. 07/12 CXR: No acute finding. 07/14 CTAP: Large hiatal hernia, small gallstone, left hip ORIF noted. Trace left pleural effusion noted. 07/16/2023 MRI spine: Age-indeterminate compression deformities of L2 and L3. Significant endplate edema is noted at L2 - L3 and L3 - L4. Subacute fractures are considered less likely. Acute to subacute coccygeal fracture with overlying soft tissue edema noted. Low back pain with radiation to mostly LLE Concern for Thoracic and lumbar compression fracture Coccygeal fracture Patient came in with worsening low back pain, with radiation to LLE greater than RLE Imaging studies as above At presentation: Patient reported her pain is affecting her activities of daily living. Pain management, bowel regimen while on pain management. Orthospine evaluated and recommended conservative management in this frail lady. PT/OT evaluation noted Pain under control - DC tramadol on discharge. Chronic fracture deformity x left knee Patient with left knee pain and has been putting more weight on her RLE Patient denied any trauma. Orthopedic evaluated, continue conservative management. Follow-up with orthopedics upon discharge. Complicated UTI Likely metabolic encephalopathy, likely secondary to above Patient noted to have increased confusion prior to arrival. Patient started on Zosyn 07/14 to rocephin 07/17 Completed 7 day course as of 07/21/23 Hypertension: Currently on home atenolol, losartan. Monitor BP and adjust as appropriate Vitamin D Deficiency : Vit D level is 17 Started Vit D3 1000 units daily during this admission Repeat vit D level in 3 months. Other chronic medical conditions: Continue with/resume home meds as and when able. 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 (No recent follow-up with [facility] Neurosurgery.) thyroid cancer status post surgery postsurgical hypothyroidism, euthyroid as of recent outpatient TSH chronic anemia, hemoglobin at baseline prediabetes, hemoglobin A1c of 5.9 last November 2022, repeat a1c 6.1 this admission. Repeat A1c in 3 months time. DVT prophylaxis. Hep sq Full code Patient's son Mr. Julio Burnett, contact #[phone]. Patient is being discharged to SNF with following instruction at the point of discharge: Follow-up with your primary care physician within a week time and likely you will need labs CBC/CMP/magnesium/phosphorus. Follow-up with orthopedics in 2 to 4 weeks time upon discharge. For your pain, you can use fjwy-mba-rzgorgr Tylenol for mild to moderate pain. You can use Voltaren gel topically for localized pain. You can use zmhe-lyo-okrlttk 4% lidocaine gel for moderate to severe pain. Continue with PT/OT at rehab. You will need repeat vitamin D level and A1c level in 3 months time, coordinate with your PCP office to set up the test. Take your medications as prescribed. Please make sure that you are able to get your medications today by calling your pharmacy before you leave the hospital so that your treatment continuity is not broken. Home Health Attestation I certify that this patient is under my care and that I, or a physicians embalmer assistant working with me, had a face to-face encounter that meets the home health mjyu-mf-moqj encounter requirements with this patient. The encounter with the patient was in whole, or in part, for the following medical condition, which is the primary reason for home health care (list medical condition): I certify that, based on my findings, the following services are medically necessary home health services: My clinical findings support the need for the above services because: Further, I certify that my clinical findings support that this patient is homebound (i.e. absences from home require considerable and taxing effort and are for medical reasons or hindu services or infrequently or of short duration when for other reasons) because: Certification for Home Health Services: Based on the above findings, I certify that this patient is confined to the home and needs intermittent group home care, physical therapy and/or speech therapy or continues to need occupational therapy. The patient is under my care, and I have initiated the establishment of the plan of care. This patient will be followed by a physician who will periodically review the plan of care. Total Time Total Time Spent Total Time Spent (In Minutes): 35 Discharge Plan Discharge Items Patient Disposition: Transfer Custodial Fac Reason For Visit: ENCEPHALOPATHY, COMP UTI Discharge Diagnosis: Thoracic and lumbar compression fracture Coccygeal fracture Low back pain Chronic deformity x left knee Complicated UTI Metabolic encephalopathy Vitamin D deficiency Activity: As commented below Activity Comment: Continue with PT/OT. Non-emergency contact: Primary Care Provider Call non-emergency contact if: you have any medication questions, your symptoms worsen and your temperature is above 101.5 Follow-up/Referrals: Jasbir Cason, [Primary Care Provider] - Diet: Heart Healthy Diet Texture: Easy to Chew Addtl Attending Provider Instructions: Follow-up with your primary care physician within a week time and likely you will need labs CBC/CMP/magnesium/phosphorus. Follow-up with orthopedics in 2 to 4 weeks time upon discharge. For your pain, you can use srvc-vzs-mfvpscp Tylenol for mild to moderate pain. You can use Voltaren gel topically for localized pain. You can use ielv-ots-dihfwnx 4% lidocaine gel for moderate to severe pain. Continue with PT/OT at rehab. You will need repeat vitamin D level and A1c level in 3 months time, coordinate with your PCP office to set up the test.. Take your medications as prescribed. Please make sure that you are able to get your medications today by calling your pharmacy before you leave the hospital so that your treatment continuity is not broken. Pending Studies at Discharge: No Stand-Alone Forms: My [facility] Skilled Items Patient informed of condition?: Yes DNR: No Discharge Level of Care: Skilled Communicable Disease: No Discharge Prognosis: Stable Lines: None Urinary Catheter: No Medications and DC Order Prescriptions: New Advanced Probiotic 625 mg (10 billion cell) Capsule 1 cap PO DAILY 7 Days Qty: 7 0RF sennosides-docusate sodium [Senokot-S] 8.6-50 mg Tablet 1 tab PO QAM 14 Days Qty: 14 0RF cholecalciferol (vitamin D3) 25 mcg (1,000 unit) Capsule 25 mcg PO QAM Qty: 30 0RF Continued pantoprazole 40 mg Tablet,Delayed Release (Dr/Ec) 40 mg PO BID Rx Instructions: 07/14/22 PT HAS NOT TAKEN THIS MED FOR APPROX 7 MONTHS DUE TO LACK OF RESOURCES FOR GETTING TO SEE HER PRIMARY PHYSICIAN AND REFILLING THE PRESCRIPTION. atenolol 25 mg tablet 25 mg PO DAILY Rx Instructions: 07/15/23 PT HAS NOT TAKEN THIS MED FOR APPROX 8 MONTHS DUE TO LACK OF RESOURCES FOR SEEING HER PRIMARY PHYSICIAN AND OBTAINING THE PRESCRIPTION. losartan 25 mg tablet 25 mg PO QAM Rx Instructions: 07/15/23 PT HAS NOT TAKEN THIS MED FOR APPROX 7 MONTHS DUE TO LACKNOF RESOURCES FOR GETTING TO SEE HER PRIMARY PHYSICIAN AND REFILLING THE PRESCRIPTION. sertraline 100 mg tablet 100 mg PO QAM Rx Instructions: 07/15/23 PT HAS NOT TAKEN THIS MED FOR APPROX 7 MONTHS DUE TO A LACK OF RESOURCES IN GETTING TO SEE HER PRIMARY PHYSICIAN AND REFILLING THE PRESCRIPTION. acetaminophen [Tylenol Extra Strength] 500 mg Tablet 1,000 mg PO Q8 PRN (Reason: fever or pain) Qty: 30 0RF levothyroxine 112 mcg Tablet 112 mcg PO DAILYBB Rx Instructions: 07/15/23 PT HAS NOT TAKEN THIS MED FOR APPROX 7 MONTHS DUE TO LACK OF RESOURCES FOR GETTING TO SEE HER PRIMARY PHYSICIAN AND REFILLING THE PRESCRIPTION. Discontinued doxycycline hyclate 100 mg capsule 100 mg PO DAILY Rx Instructions: 07/15/23 PTN HAS NOT TAKEN THIS MED FOR APPROX 6 MONTHS DUE TO LACK OF RESOURCES FOR SEEING HER PRIMARY PHYSICIAN AND OBTAINING HER PRESCRIPTION. tramadol 25 mg tablet 25 mg PO Q6H PRN (Reason: pain) Qty: 20 0RF Rx Instructions: 07/15/23 PT HAS NOT TAKEN THIS MED IN APPROX 7 MONTHS DUE TO A LACK OF RESOURCES IN GETTING TO SEE HER PRIMARY PHYSICIAN AND REFILLING THE PRESCRIPTION. Discharge Orders: Discharge Order (Routine); Ordered 07/30/23 Ordered By: Quinten Banegas Admission Data Admit Date/Time: 07/15/23 04:02 Attending Provider: Quinten Banegas Admit Provider: Hernando Loya Primary Care Provider: Jasbir Cason Other Providers: Hernando Loya; Yuri Esteves; Severo Smith; Quinten Banegas; [facility] Bailon at [place]; [facility]; [place],[facility]; [facility]
== END 2023-07-30 13:56 | DRG 542 ==
LOC: ED 23:57 → EDINP 07-15 04:02 → SUATTDRO 07-15 04:02 → 2N 07-15 05:54 → 3N 07-20 23:33

== ENCOUNTER 2024-03-20 20:54 | Inpatient (IN) ==
[2024-03-20 21:51] LABS: Alanine Aminotransferase 16 U/L (7-52); Albumin Globulin Ratio 1.5 (0.9-2); Albumin Level 4.8 gm/dl (3.4-5.0); Alkaline Phosphatase 94 U/L (34-104); Anion Gap 16 (3-11); Aspartate Aminotransferase 27 U/L (13-39); BUN Creatinine Ratio 38.8 (10-20); Bilirubin,Total 0.7 mg/dl (0.2-1.0); Blood Urea Nitrogen 31 mg/dl (6-23); Calcium 10.5 mg/dl (8.6-10.3); Carbon Dioxide 19 mmol/L (21-32); Chloride 100 mmol/L (98-107); Globulin 3.2 gm/dl (2.5-4.0); Glucose 63 mg/dl (70-99(Fasting)); Lipase 29 U/L (11-82); Magnesium 1.9 mg/dl (1.7-2.4); Potassium 3.6 mmol/L (3.5-5.1); Sodium 135 mmol/L (136-145)
[2024-03-20 21:54] LABS: Basophils # (auto) 0.05 K/uL (0.00-0.20); Basophils % (auto) 0.6 %; Eosinophils # (auto) 0.01 K/uL (0.00-0.50); Eosinophils % (auto) 0.1 %; Hematocrit (blood only) 42.3 % (37.0-47.0); Hemoglobin 13.6 g/dl (12.0-16.0); Immature Granulocytes # (auto) 0.06 K/uL (0.01-0.20); Immature Granulocytes % (auto) 0.7 %; Lymphocytes # (auto) 1.44 K/uL (1.20-3.40); Mean Corpuscular Hgb Conc 32.2 g/dL (32.0-36.0); Mean Platelet Volume 9.8 fL (9.4-12.4); Monocytes # (auto) 0.66 K/uL (0.11-0.59); Monocytes % (auto) 7.3 %; Neutrophils # (auto) 6.77 K/uL (1.40-6.50); Neutrophils % (auto) 75.3 %; Platelet Count 365 K/uL (130-400); RDW Standard Deviation 44.9 fL (36.4-46.3); Red Blood Count 4.86 M/uL (4.20-5.40); White Blood Count 8.99 K/ul (4.8-10.8)
[2024-03-20 21:57] LABS: Troponin I High Sensitivity 12.7 pg/ml (0-14)
[2024-03-20 22:38] LABS: Adenovirus PCR Not Detected (NotDetected); Bordetella parapertussis PCR Not Detected (NotDetected); Bordetella pertussis PCR Not Detected (NotDetected); Chlamydia pneumoniae PCR Not Detected (NotDetected); Coronavirus 229E PCR Not Detected (NotDetected); Coronavirus CoV-2 (COVID19)PCR Not Detected (NotDetected); Coronavirus HKU1 PCR Not Detected (NotDetected); Coronavirus NL63 PCR Not Detected (NotDetected); Coronavirus OC43PCR Not Detected (NotDetected); Human Metapneumovirus PCR Not Detected (NotDetected); Influenza A PCR Not Detected (NotDetected); Influenza B PCR Not Detected (NotDetected); Mycoplasma pneumoniae PCR Not Detected (NotDetected); Parainfluenza Virus 1 PCR Not Detected (NotDetected); Parainfluenza Virus 2 PCR Not Detected (NotDetected); Parainfluenza Virus 3 PCR Not Detected (NotDetected); Parainfluenza Virus 4 PCR Not Detected (NotDetected); Respiratory Syncytial VirusPCR Not Detected (NotDetected); Rhinovirus/Enterovirus PCR Not Detected (NotDetected)
[2024-03-20 22:41] LABS: Thyroid Stimulating Hormone 96.021 uIu/ml (0.300-4.500)
[2024-03-20] MEDS: OPTIRAY 320 100ml IV ONE (22:46)
--- NOTE | 2024-03-20 22:59 | Emergency Department Note ---
Impression & Plan Nausea & vomiting, Generalized weakness, Acute dehydration, Elevated TSH ED Provider Note HISTORY OF PRESENT ILLNESS: Patient is AN 88-year-old female presenting with persistent nausea and vomiting. Patient reports she is "been sick" all week long. She is wheelchair-bound at baseline and lives home alone but her son checks in on her as he lives 2 minutes away. She reports has been unable to care for herself for the last week secondary to "being so sick." She reports being nauseous and having decreased oral intake secondary to her nausea. Reports multiple episodes of vomiting. Denies any diarrhea. Denies any chest pain or shortness of breath. She reports feeling generally weak. Denies any notable fevers. Denies any recent sick contact exposures. She reports she is been unable to tolerate her medications at home secondary to feeling ill. Denies any notable rashes. Denies any dysuria or hematuria. Son reports the patient seems a little more confused today than normal. ROS: as above PHYSICAL EXAM: Constitutional: Patient appears in no acute distress. HENT: Head: Normocephalic and atraumatic. Eyes: EOMI, PERRL Mouth/Throat: Mucous membranes dry. Neck: Trachea midline. Neck supple. Cardiovascular: RRR, No murmurs, rubs or gallops. Intact distal pulses. Pulmonary/Chest: No respiratory distress. Breath sounds clear and equal bilaterally. No wheezes or rales. Abdominal: Abdomen soft, no rebound or guarding. Generalized TTP Musculoskeletal: No edema, tenderness or deformity noted. Skin: Warm and dry. No rash, erythema, pallor or cyanosis Psychiatric: Appropriate mood and affect for situation. Neurological: Alert and keenly responsive. CN II-XII grossly intact, moving all extremities equally and fully. MDM: - Vitals signs showed hypertension and tachycardia - History obtained via patient. History as above. - Chronic conditions affecting care: HTN; CKD; CVA; hypothyroidism; HLD - Differential diagnoses include, but are not limited to: UTI; pneumonia; small bowel obstruction; electrolyte abnormality; dehydration - Order placed for continuous cardiac monitoring. At this time, monitor showed rate of 73 bpm with normal sinus rhythm, per my interpretation. - External medical records reviewed. Discharge summary dated 07/30/2023 was reviewed. Patient was admitted at that time for compression fractures and metabolic encephalopathy from a complicated UTI. - EKG interpreted by myself showed normal sinus rhythm. Rate tachycardic at 106 bpm. QT 350. No acute ischemic changes. - Laboratory workup interpreted by myself showed normal WBC; slight hyponatremia (Na 135); elevated BUN (31); elevated anion gap (16); hypercalcemia (Ca 10.5); hypoglycemia (glucose 63); normal troponin; normal lipase; elevated TSH (96.021) - Viral respiratory panel - CT abdomen/pelvis with IV contrast negative for acute abnormality, per radiology. - Patient given dextrose D50 and 500 cc NS in ER for hypoglycemia and hydration. - Patient given 4 mg IV zofran. - Discussed results with patient and her son at bedside. Patient expresses concern about going home secondary to her inability to care for herself and her persistent nausea and vomiting. She has been unable to tolerate her medications for the week. - Discussion was had with rehabilitation case coordinator about patient's case and need for admission - Hospitalist, Dr. Loya, consulted for admission - [facility] ASSESSMENT AND PLAN: Diagnosis: Nausea and vomiting; generalized weakness; acute dehydration; elevated TSH Plan: admit Past Med/Surg History Problem List (Updated 03/20/24 @ 23:53 by Sumi Ayala MD) Elevated TSH (Acute) Acute dehydration (Acute) Generalized weakness (Acute) Nausea & vomiting (Acute) Neurogenic claudication due to lumbar spinal stenosis Encephalopathy Generalized weakness (Acute) Ambulatory dysfunction (Acute) Nausea & vomiting (Acute) Status post-operative repair of hip fracture Hypothyroidism UTI (urinary tract infection) Status post fall Hip fracture, left (Acute) Left leg pain (Acute) Fracture of tibial plateau (Acute) Acute head trauma (Acute) Asymptomatic hypertensive urgency Left medial tibial plateau fracture Symptoms of cerebrovascular accident (CVA) (Acute) Dizziness Ambulatory dysfunction Syncope Thyroid cancer Depression CKD (chronic kidney disease), stage III Panic disorder (Chronic 12/26/10) Esophagitis (Chronic 12/26/10) Near syncope (Acute) History of papillary adenocarcinoma of thyroid (Chronic) Hypertensive heart disease (Chronic) Cerebral aneurysm (Chronic) "[facility] 07/22/13 3 mm 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 aneurysm 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" Status post appendectomy (Chronic) Status post thyroidectomy (Chronic) Right knee DJD Medical History Bacteremia Infective endocarditis Leukocytosis Acute on chronic renal insufficiency Sepsis Acute kidney injury superimposed on chronic kidney disease Infection Sepsis PSVT (paroxysmal supraventricular tachycardia) Left leg swelling Fall Thyroid cancer Depression MERY (obstructive sleep apnea) HLD (hyperlipidemia) HTN (hypertension) CKD (chronic kidney disease), stage III Cerebral aneurysm "[facility] 07/22/13 3 mm fusiform aneurysm 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" Hypothyroidism Hypertensive heart disease History of papillary adenocarcinoma of thyroid Esophagitis (12/26/10) Panic disorder (12/26/10) Surgical History Status post thyroidectomy Status post appendectomy Family History Other Diabetes Hypertension Social History Smoking Status: Never smoker Second Hand Exposure: No; Do You Dip or Chew Tobacco: No; Hx Alcohol Use: No Hx Substance Use: No Preferred Language: Cypriot Communication Ability: Effective 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: No Beliefs That Will Affect Care: None marital status: / Current Living Situation: Family Current Living Situation Comment: lives with grandsom How many Children do You have: 3 Feels Safe at Home: Yes Assistive Devices: Walker and Wheelchair Allergies Allergies Allergy/AdvReac Type Severity Reaction Status Date / Time simvastatin AdvReac Intermediate Muscle Pain Verified 07/15/23 03:09 Tveagyb-TRF-MlQ Reductase AdvReac Intermediate MUSCLE Verified 07/15/23 03:09 Inhibitor ACHES-ELEVATED [Rxvjnui-Nis-Ipv Reductase CK WITH Inhibitor] LIPITOR PER HISTORY tramadol AdvReac Intermediate Confusion Verified 07/15/23 03:46 cefazolin [From Anc] AdvReac Mild rash on Verified 07/15/23 03:09 abdomen Home Meds Home Medications Medication Instructions Recorded Confirmed pantoprazole 40 mg tablet,delayed 40 mg PO BID 10/07/18 07/15/23 release atenolol 25 mg tablet 25 mg PO DAILY 01/06/21 07/15/23 losartan 25 mg tablet 25 mg PO QAM 02/04/21 07/15/23 sertraline 100 mg tablet 100 mg PO QAM 02/04/21 07/15/23 levothyroxine 112 mcg tablet 112 mcg PO DAILYBB 07/13/23 07/15/23 Previous Rx's Medication Instructions Recorded acetaminophen 500 mg tablet 1,000 mg (2 x 500 mg) PO Q8 PRN 02/28/21 (Tylenol Extra Strength) fever or pain #30 tabs cholecalciferol (vitamin D3) 25 25 mcg PO QAM #30 caps 07/30/23 mcg (1,000 unit) capsule Results & Data (ED) Vital Signs Vital Signs - 24 hr 03/20/24 20:58 03/20/24 21:29 03/20/24 23:15 Temperature 36.5 C Temperature Source Temporal Artery Scan Pulse Rate 113 H 108 H 85 Respiratory Rate 18 18 Respiratory Effort / Characteristics Non-Labored Spontaneous Respiratory Depth Normal Respiratory Pattern Regular Blood Pressure 166/73 H 176/114 H Blood Pressure Mean 104 134 Pulse Oximetry 94 97 Oxygen Delivery Method Room Air Sepsis Recent Fever Within 48 Hours No Sepsis New/Unexplained Change in Mental Status N/A Sepsis Action Taken by Nursing No Action Required 03/20/24 23:37 Temperature Temperature Source Pulse Rate Respiratory Rate Respiratory Effort / Characteristics Respiratory Depth Respiratory Pattern Blood Pressure 168/86 H Blood Pressure Mean 113 Pulse Oximetry Oxygen Delivery Method Sepsis Recent Fever Within 48 Hours Sepsis New/Unexplained Change in Mental Status Sepsis Action Taken by Nursing Laboratory Data 03/20/24 21:16 03/20/24 21:16 Lab Results 03/20/24 Range/Units 21:16 WBC 8.99 (4.8-10.8) K/ul RBC 4.86 (4.20-5.40) M/uL Hgb 13.6 (12.0-16.0) g/dl Hct 42.3 (37.0-47.0) % MCV 87.0 (80.0-100.0) fL MCH 28.0 (25.0-34.0) pg MCHC 32.2 (32.0-36.0) g/dL RDW Std Deviation 44.9 (36.4-46.3) fL RDW Coeff of Brandan 14.0 (11.5-14.5) % Plt Count 365 (130-400) K/uL MPV 9.8 (9.4-12.4) fL Immature Gran % (Auto) 0.7 % Neut % (Auto) 75.3 % Lymph % (Auto) 16.0 % Canadian % (Auto) 7.3 % Eos % (Auto) 0.1 % Baso % (Auto) 0.6 % Neut # (Auto) 6.77 H (1.40-6.50) K/uL Lymph # (Auto) 1.44 (1.20-3.40) K/uL Canadian # (Auto) 0.66 H (0.11-0.59) K/uL Eos # (Auto) 0.01 (0.00-0.50) K/uL Baso # (Auto) 0.05 (0.00-0.20) K/uL Immature Gran # (Auto) 0.06 (0.01-0.20) K/uL Sodium 135 L (136-145) mmol/L Potassium 3.6 (3.5-5.1) mmol/L Chloride 100 (98-107) mmol/L Carbon Dioxide 19 L (21-32) mmol/L Anion Gap 16 H (3-11) BUN 31 H (6-23) mg/dl Creatinine 0.80 (0.6-1.2) mg/dl Est Cr Clr Drug Dosing Not Reportable eGFR 71.71 BUN/Creatinine Ratio 38.8 H (10-20) Glucose 63 L (70-99(Fasting)) mg/dl Calcium 10.5 H (8.6-10.3) mg/dl Magnesium 1.9 (1.7-2.4) mg/dl Total Bilirubin 0.7 (0.2-1.0) mg/dl AST 27 (13-39) U/L ALT 16 (7-52) U/L Alkaline Phosphatase 94 (34-104) U/L Troponin I High Sens 12.7 (0-14) pg/ml Total Protein 8.0 (6.0-8.3) gm/dl Albumin 4.8 (3.4-5.0) gm/dl Globulin 3.2 (2.5-4.0) gm/dl Albumin/Globulin Ratio 1.5 (0.9-2) Lipase 29 (11-82) U/L TSH 96.021 H (0.300-4.500) uIu/ml Free T4 0.44 L (0.61-1.60) ng/dl Adenovirus (PCR) Not Detected (NotDetected) B. pertussis DNA (PCR) Not Detected (NotDetected) B.parapertussis DNA PCR Not Detected (NotDetected) C. pneumoniae DNA (PCR) Not Detected (NotDetected) Coronavirus OC43 (PCR) Not Detected (NotDetected) Coronavirus HKU1 (PCR) Not Detected (NotDetected) Coronavirus 229E (PCR) Not Detected (NotDetected) SARS-CoV-2 (PCR) Not Detected (NotDetected) Coronavirus NL63 (PCR) Not Detected (NotDetected) Human Metapneumovir PCR Not Detected (NotDetected) Influenza Type A (PCR) Not Detected (NotDetected) Influenza Type B (PCR) Not Detected (NotDetected) M. pneumoniae (PCR) Not Detected (NotDetected) Parainfluenza 1 (PCR) Not Detected (NotDetected) Parainfluenza 2 (PCR) Not Detected (NotDetected) Parainfluenza 3 (PCR) Not Detected (NotDetected) Parainfluenza 4 (PCR) Not Detected (NotDetected) RSV (PCR) Not Detected (NotDetected) Entero/Rhino (PCR) Not Detected (NotDetected) Administered Medications Discontinued Medications Dextrose (Dextrose 50% 50 Ml Syringe) 50 ml IV NOW ONE Stop: 03/20/24 23:05 Last Admin: 03/20/24 23:21 Dose: 50 ml Documented By: FATUMA Sodium Chloride (Nss) 500 mls @ 999 mls/hr IV .Q31M ONE Stop: 03/20/24 23:34 Last Admin: 03/20/24 23:22 Dose: 999 mls/hr Documented By: FATUMA Ioversol (Optiray 320 100ml) 91 ml IV ONCE ONE Stop: 03/20/24 22:46 Last Admin: 03/20/24 22:46 Dose: 91 ml Documented By: PER Ondansetron HCl (Ondansetron Inj 2 Mg/Ml 2 Ml Vial) 4 mg IV NOW STA Stop: 03/20/24 23:35 Last Admin: 03/20/24 23:40 Dose: 4 mg Documented By: FATUMA Imaging Data Radiologist's Impression: Abdomen/Pelvis CT 03/20/24 21:36 Exam(s): CT ABDOMEN + PELVIS With Contrast IV Amt: 91 ml optiray 320 EXAM: CT Abdomen and Pelvis With Intravenous Contrast CLINICAL HISTORY: Reason for exam: N/V. TECHNIQUE: Axial computed tomography images of the abdomen and pelvis with intravenous contrast. CTDI is 15.34 mGy and DLP is 671.76 mGy-cm. Automated exposure control was utilized for the study. A dose lowering technique was utilized adhering to the principles of ALARA. CONTRAST: Patient received 91 ml optiray 320 of IV contrast COMPARISON: July 15, 2023 large hiatal hernia FINDINGS: Lung bases: Unremarkable. No mass. No consolidation. Heart: Small pericardial effusion intrahepatic hypodensities measuring up to 1.1 cm in the left hepatic lobe consistent with cysts stable since prior exam. Multiple bilateral renal hypodensities many of which measure less than 1 cm the largest of these is seen in the upper pole left kidney measuring 1 cm in likely represents a cyst. This is stable since prior exam. ABDOMEN: Liver: See above. Gallbladder and bile ducts: Unremarkable. No calcified stones. No ductal dilation. Pancreas: Unremarkable. No mass. No ductal dilation. Spleen: Unremarkable. No splenomegaly. Adrenals: Unremarkable. No mass. Kidneys and ureters: See above. Stomach and bowel: Diverticulosis without evidence of diverticulitis. No obstruction. PELVIS: Appendix: No findings to suggest acute appendicitis. Bladder: Unremarkable. No mass. Reproductive: Unremarkable as visualized. ABDOMEN and PELVIS: Intraperitoneal space: Unremarkable. No free air. No significant fluid collection. Bones/joints: Postoperative changes ORIF left hip fracture. No dislocation. Soft tissues: Unremarkable. Vasculature: Unremarkable. No abdominal aortic aneurysm. Lymph nodes: Unremarkable. No enlarged lymph nodes. IMPRESSION: No acute findings in the abdomen or pelvis. Electronically signed by: Romero Warren MD 03/20/24 23:21 PM Discharge Plan Visit Data Chief Complaint: Nausea Stated Complaint: VOMITING, NAUSEA, NOT EATING ED Provider: Sumi Ayala Discharge Problem: Nausea & vomiting, Generalized weakness, Acute dehydration, Elevated TSH Forms Stand Alone Forms: My garbs Prescriptions Prescriptions: No Action pantoprazole 40 mg Tablet,Delayed Release (Dr/Ec) 40 mg PO BID Rx Instructions: 07/14/22 PT HAS NOT TAKEN THIS MED FOR APPROX 7 MONTHS DUE TO LACK OF RESOURCES FOR GETTING TO SEE HER PRIMARY PHYSICIAN AND REFILLING THE PRESCRIPTION. atenolol 25 mg tablet 25 mg PO DAILY Rx Instructions: 07/15/23 PT HAS NOT TAKEN THIS MED FOR APPROX 8 MONTHS DUE TO LACK OF RESOURCES FOR SEEING HER PRIMARY PHYSICIAN AND OBTAINING THE PRESCRIPTION. losartan 25 mg tablet 25 mg PO QAM Rx Instructions: 07/15/23 PT HAS NOT TAKEN THIS MED FOR APPROX 7 MONTHS DUE TO LACKNOF RESOURCES FOR GETTING TO SEE HER PRIMARY PHYSICIAN AND REFILLING THE PRESCRIPTION. sertraline 100 mg tablet 100 mg PO QAM Rx Instructions: 07/15/23 PT HAS NOT TAKEN THIS MED FOR APPROX 7 MONTHS DUE TO A LACK OF RESOURCES IN GETTING TO SEE HER PRIMARY PHYSICIAN AND REFILLING THE PRESCRIPTION. acetaminophen [Tylenol Extra Strength] 500 mg Tablet 1,000 mg PO Q8 PRN (Reason: fever or pain) Qty: 30 0RF levothyroxine 112 mcg Tablet 112 mcg PO DAILYBB Rx Instructions: 07/15/23 PT HAS NOT TAKEN THIS MED FOR APPROX 7 MONTHS DUE TO LACK OF RESOURCES FOR GETTING TO SEE HER PRIMARY PHYSICIAN AND REFILLING THE PRESCRIPTION. cholecalciferol (vitamin D3) 25 mcg (1,000 unit) Capsule 25 mcg PO QAM Qty: 30 0RF Referrals Referrals: Jasbir Cason, [Primary Care Provider] -
[2024-03-20 23:16] LABS: T4 Free Thyroxine 0.44 ng/dl (0.61-1.60)
[2024-03-20] MEDS: DEXTROSE 50% 50 ML SYRINGE IV ONE (23:21)
[2024-03-20] MEDS: SODIUM CHLORIDE 0.9% 500 ML IV ONE (23:22)
--- NOTE | 2024-03-20 23:23 | CT Scan Report ---
Exam(s): CT ABDOMEN + PELVIS With Contrast IV Amt: 91 ml optiray 320 EXAM: CT Abdomen and Pelvis With Intravenous Contrast CLINICAL HISTORY: Reason for exam: N/V. TECHNIQUE: Axial computed tomography images of the abdomen and pelvis with intravenous contrast. CTDI is 15.34 mGy and DLP is 671.76 mGy-cm. Automated exposure control was utilized for the study. A dose lowering technique was utilized adhering to the principles of ALARA. CONTRAST: Patient received 91 ml optiray 320 of IV contrast COMPARISON: July 15, 2023 large hiatal hernia FINDINGS: Lung bases: Unremarkable. No mass. No consolidation. Heart: Small pericardial effusion intrahepatic hypodensities measuring up to 1.1 cm in the left hepatic lobe consistent with cysts stable since prior exam. Multiple bilateral renal hypodensities many of which measure less than 1 cm the largest of these is seen in the upper pole left kidney measuring 1 cm in likely represents a cyst. This is stable since prior exam. ABDOMEN: Liver: See above. Gallbladder and bile ducts: Unremarkable. No calcified stones. No ductal dilation. Pancreas: Unremarkable. No mass. No ductal dilation. Spleen: Unremarkable. No splenomegaly. Adrenals: Unremarkable. No mass. Kidneys and ureters: See above. Stomach and bowel: Diverticulosis without evidence of diverticulitis. No obstruction. PELVIS: Appendix: No findings to suggest acute appendicitis. Bladder: Unremarkable. No mass. Reproductive: Unremarkable as visualized. ABDOMEN and PELVIS: Intraperitoneal space: Unremarkable. No free air. No significant fluid collection. Bones/joints: Postoperative changes ORIF left hip fracture. No dislocation. Soft tissues: Unremarkable. Vasculature: Unremarkable. No abdominal aortic aneurysm. Lymph nodes: Unremarkable. No enlarged lymph nodes. IMPRESSION: No acute findings in the abdomen or pelvis. Electronically signed by: Romero Warren MD 03/20/24 23:21 PM
[2024-03-20] MEDS: ONDANSETRON INJ 2 MG/ML 2 ML VIAL IV STA (23:40)
--- NOTE | 2024-03-21 00:23 | History & Physical Report ---
Date of Service March 21, 2024 Assessment & Plan (1) Complicated UTI (urinary tract infection): Plan: Complicated UTI, no sepsis for now hx mixed stress/urge incontinence as per record hypertensive urgency secondary to illness AGMA secondary to clinical dehydration hyperlipidemia/statin intolerance hx PVD/ cerebral aneurysm as per records MERY not on CPAP as per records GERD thyroid cancer status post surgery postsurgical hypothyroidism, TSH markedly elevated, patient ran out of pills for about a month as per patient son account prediabetes, hemoglobin A1c of 6.1 last July 2023 chronic anemia, hemoglobin better than baseline likely secondary to hem oconcentration anxiety/mood disorder/dementia, mentation at baseline as per son. Malnutrition, low BMI Medical telemetry CS, Zosyn in light of microbiologic history (Enterococcus, enteric GNRs on re view) IV Lopressor 1 dose now Analgesia IVF Facilitate home levothyroxine dose, recheck TSH outpatient after 6 weeks PT OT eval Nutrition consult re: low BMI DVT prophylaxis. SCDs Full code Patient's son requesting updates from providers. Mr. Julio Burnett, contact #[phone]. Text document was generated using Mod[employer] voice recognition software. It may contain grammatical or spelling errors. Kindly contact undersigned for clarification of any documentation item in question. History of Present Illness Chief Complaint: Abdominal pain, nausea, vomiting Primary Care Provider: Jasbir Cason, History obtained from patient, family, and records. Patient is a fair historian. Medical history significant for hypertension, hyperlipidemia, PVD, history cerebral aneurysm as per records, MERY not on CPAP as per records, GERD, thyroid cancer status post surgery, postsurgical hypothyroidism, prediabetes, chronic anemia (baseline hemoglobin 10-11), mixed stress/urge incontinence as per records, anxiety/mood disorder, dementia as per records. Last confinement July 2023 for thoracic/lumbar, coccygeal fracture and complicated UTI. 5 days history of achy abdominal pain with nausea, emesis. No diarrhea. Patient denies headache, chest pain, SOB. SBP 170s upon arrival at the ER. 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 Allergies Allergy/AdvReac Type Severity Reaction Status Date / Time simvastatin AdvReac Intermediate Muscle Pain Verified 07/15/23 03:09 Anqujro-LHC-UbA Reductase AdvReac Intermediate MUSCLE Verified 07/15/23 03:09 Inhibitor ACHES-ELEVATED [Gqqlkji-Qqz-Sto Reductase CK WITH Inhibitor] LIPITOR PER HISTORY tramadol AdvReac Intermediate Confusion Verified 07/15/23 03:46 cefazolin [From Ancef] AdvReac Mild rash on Verified 07/15/23 03:09 abdomen Home Medications Medication Instructions Recorded Confirmed Type pantoprazole 40 mg tablet,delayed 40 mg PO BID 10/07/18 03/21/24 History release atenolol 25 mg tablet 25 mg PO DAILY 01/06/21 03/21/24 History losartan 25 mg tablet 25 mg PO QAM 02/04/21 03/21/24 History sertraline 100 mg tablet 100 mg PO QAM 02/04/21 03/21/24 History acetaminophen 500 mg tablet 1,000 mg (2 x 500 mg) PO Q8 PRN 02/28/21 03/21/24 Rx (Tylenol Extra Strength) fever or pain #30 tabs levothyroxine 112 mcg tablet 112 mcg PO DAILYBB 07/13/23 03/21/24 History cholecalciferol (vitamin D3) 25 25 mcg PO QAM #30 caps 07/30/23 03/21/24 Rx mcg (1,000 unit) capsule Past Med/Surg History Problem List (Updated 03/21/24 @ 08:19 by Hernando Loya MD) Complicated UTI (urinary tract infection) Elevated TSH (Acute) Acute dehydration (Acute) Generalized weakness (Acute) Nausea & vomiting (Acute) Neurogenic claudication due to lumbar spinal stenosis Encephalopathy Generalized weakness (Acute) Ambulatory dysfunction (Acute) Nausea & vomiting (Acute) Status post-operative repair of hip fracture Hypothyroidism UTI (urinary tract infection) Status post fall Hip fracture, left (Acute) Left leg pain (Acute) Fracture of tibial plateau (Acute) Acute head trauma (Acute) Asymptomatic hypertensive urgency Left medial tibial plateau fracture Symptoms of cerebrovascular accident (CVA) (Acute) Dizziness Ambulatory dysfunction Syncope Thyroid cancer Depression CKD (chronic kidney disease), stage III Panic disorder (Chronic 12/26/10) Esophagitis (Chronic 12/26/10) Near syncope (Acute) History of papillary adenocarcinoma of thyroid (Chronic) Hypertensive heart disease (Chronic) Cerebral aneurysm (Chronic) "[facility] 07/22/13 3 mm fusiform aneurysm takeoff right FIRST ASSIST" Status post appendectomy (Chronic) Status post thyroidectomy (Chronic) Right knee DJD Medical History Bacteremia Infective endocarditis Leukocytosis Acute on chronic renal insufficiency Sepsis Acute kidney injury superimposed on chronic kidney disease Infection Sepsis PSVT (paroxysmal supraventricular tachycardia) Left leg swelling Fall Thyroid cancer Depression MERY (obstructive sleep apnea) HLD (hyperlipidemia) HTN (hypertension) CKD (chronic kidney disease), stage III Cerebral aneurysm "[facility] 07/22/13 3 mm fusiform aneurysm takeoff right FIRST ASSIST" Hypothyroidism Hypertensive heart disease History of papillary adenocarcinoma of thyroid Esophagitis (12/26/10) Panic disorder (12/26/10) Surgical History Status post thyroidectomy Status post appendectomy Family History Other Diabetes Hypertension Social History Smoking Status: Never smoker Second Hand Exposure: No; Do You Dip or Chew Tobacco: No; Hx Alcohol Use: No Hx Substance Use: No Preferred Language: Icelandic Communication Ability: Effective Manufacturer Agent Required: No Beliefs That Will Affect Care: None marital status: / Current Living Situation: Alone Current Living Situation Comment: Lives at home alone How many Children do You have: 3 Feels Safe at Home: Yes Safety Concerns: Feels Safe At This Time Assistive Devices: Walker and Wheelchair Review of Systems Review of Systems: As per HPI, all other systems reviewed and negative Physical Exam Physical Exam: GENERAL: Oriented to place, uncomfortable, no respiratory distress SKIN: Pallor, warm HEENT: Pale palpebral conjunctivae, no ptosis, dry buccal mucosa NECK : Supple, no tenderness CHEST : Decreased breath sounds, no tenderness HEART : RRR, no obvious murmurs ABDOMEN: no distention, central abdominal tenderness EXTREMITIES : No LE swelling, no LE tenderness, no other conspicuous deformities noted NEUROLOGIC : Oriented to place, no facial asymmetry, mild hearing impairment, gait and stance not assessed Results & Data Results & Data Vital Signs (Past 12 Hours) Vital Signs Temp Pulse Resp BP Pulse Ox O2 Del Method 03/20/24 23:37 168/86 H 03/20/24 23:15 85 18 176/114 H 97 03/20/24 21:29 108 H 03/20/24 20:58 36.5 C 113 H 18 166/73 H 94 Room Air Laboratory Results Laboratory Results WBC 8.99 K/ul (4.8-10.8) 03/20/24 21:16 RBC 4.86 M/uL (4.20-5.40) 03/20/24 21:16 Hgb 13.6 g/dl (12.0-16.0) 03/20/24 21:16 Hct 42.3 % (37.0-47.0) 03/20/24 21:16 MCV 87.0 fL (80.0-100.0) 03/20/24 21:16 MCH 28.0 pg (25.0-34.0) 03/20/24 21:16 MCHC 32.2 g/dL (32.0-36.0) 03/20/24 21:16 RDW Std Deviation 44.9 fL (36.4-46.3) 03/20/24 21:16 RDW Coeff of Brandan 14.0 % (11.5-14.5) 03/20/24 21:16 Plt Count 365 K/uL (130-400) 03/20/24 21:16 MPV 9.8 fL (9.4-12.4) 03/20/24 21:16 Immature Gran % (Auto) 0.7 % 03/20/24 21:16 Neut % (Auto) 75.3 % 03/20/24 21:16 Lymph % (Auto) 16.0 % 03/20/24 21:16 [place] % (Auto) 7.3 % 03/20/24 21:16 Eos % (Auto) 0.1 % 03/20/24 21:16 Baso % (Auto) 0.6 % 03/20/24 21:16 Neut # (Auto) 6.77 K/uL (1.40-6.50) H 03/20/24 21:16 Lymph # (Auto) 1.44 K/uL (1.20-3.40) 03/20/24 21:16 [place] # (Auto) 0.66 K/uL (0.11-0.59) H 03/20/24 21:16 Eos # (Auto) 0.01 K/uL (0.00-0.50) 03/20/24 21:16 Baso # (Auto) 0.05 K/uL (0.00-0.20) 03/20/24 21:16 Immature Gran # (Auto) 0.06 K/uL (0.01-0.20) 03/20/24 21:16 Sodium 135 mmol/L (136-145) L 03/20/24 21:16 Potassium 3.6 mmol/L (3.5-5.1) 03/20/24 21:16 Chloride 100 mmol/L (98-107) 03/20/24 21:16 Carbon Dioxide 19 mmol/L (21-32) L 03/20/24 21:16 Anion Gap 16 (3-11) H 03/20/24 21:16 BUN 31 mg/dl (6-23) H 03/20/24 21:16 Creatinine 0.80 mg/dl (0.6-1.2) 03/20/24 21:16 Est Cr Clr Drug Dosing Not Reportable 03/20/24 21:16 eGFR 71.71 03/20/24 21:16 BUN/Creatinine Ratio 38.8 (10-20) H 03/20/24 21:16 Glucose 63 mg/dl (70-99(Fasting)) L 03/20/24 21:16 Calcium 10.5 mg/dl (8.6-10.3) H 03/20/24 21:16 Magnesium 1.9 mg/dl (1.7-2.4) 03/20/24 21:16 Total Bilirubin 0.7 mg/dl (0.2-1.0) 03/20/24 21:16 AST 27 U/L (13-39) 03/20/24 21:16 ALT 16 U/L (7-52) 03/20/24 21:16 Alkaline Phosphatase 94 U/L (34-104) 03/20/24 21:16 Troponin I High Sens 12.7 pg/ml (0-14) 03/20/24 21:16 Total Protein 8.0 gm/dl (6.0-8.3) 03/20/24 21:16 Albumin 4.8 gm/dl (3.4-5.0) 03/20/24 21:16 Globulin 3.2 gm/dl (2.5-4.0) 03/20/24 21:16 Albumin/Globulin Ratio 1.5 (0.9-2) 03/20/24 21:16 Lipase 29 U/L (11-82) 03/20/24 21:16 TSH 96.021 uIu/ml (0.300-4.500) H 03/20/24 21:16 Free T4 0.44 ng/dl (0.61-1.60) L 03/20/24 21:16 Adenovirus (PCR) Not Detected (NotDetected) 03/20/24 21:16 B. pertussis DNA (PCR) Not Detected (NotDetected) 03/20/24 21:16 B.parapertussis DNA PCR Not Detected (NotDetected) 03/20/24 21:16 C. pneumoniae DNA (PCR) Not Detected (NotDetected) 03/20/24 21:16 Coronavirus OC43 (PCR) Not Detected (NotDetected) 03/20/24 21:16 Coronavirus HKU1 (PCR) Not Detected (NotDetected) 03/20/24 21:16 Coronavirus 229E (PCR) Not Detected (NotDetected) 03/20/24 21:16 SARS-CoV-2 (PCR) Not Detected (NotDetected) 03/20/24 21:16 Coronavirus NL63 (PCR) Not Detected (NotDetected) 03/20/24 21:16 Human Metapneumovir PCR Not Detected (NotDetected) 03/20/24 21:16 Influenza Type A (PCR) Not Detected (NotDetected) 03/20/24 21:16 Influenza Type B (PCR) Not Detected (NotDetected) 03/20/24 21:16 M. pneumoniae (PCR) Not Detected (NotDetected) 03/20/24 21:16 Parainfluenza 1 (PCR) Not Detected (NotDetected) 03/20/24 21:16 Parainfluenza 2 (PCR) Not Detected (NotDetected) 03/20/24 21:16 Parainfluenza 3 (PCR) Not Detected (NotDetected) 03/20/24 21:16 Parainfluenza 4 (PCR) Not Detected (NotDetected) 03/20/24 21:16 RSV (PCR) Not Detected (NotDetected) 03/20/24 21:16 Entero/Rhino (PCR) Not Detected (NotDetected) 03/20/24 21:16 Impressions Abdomen/Pelvis CT 03/20/24 21:36 Exam(s): CT ABDOMEN + PELVIS With Contrast IV Amt: 91 ml optiray 320 EXAM: CT Abdomen and Pelvis With Intravenous Contrast CLINICAL HISTORY: Reason for exam: N/V. TECHNIQUE: Axial computed tomography images of the abdomen and pelvis with intravenous contrast. CTDI is 15.34 mGy and DLP is 671.76 mGy-cm. Automated exposure control was utilized for the study. A dose lowering technique was utilized adhering to the principles of ALARA. CONTRAST: Patient received 91 ml optiray 320 of IV contrast COMPARISON: July 15, 2023 large hiatal hernia FINDINGS: Lung bases: Unremarkable. No mass. No consolidation. Heart: Small pericardial effusion intrahepatic hypodensities measuring up to 1.1 cm in the left hepatic lobe consistent with cysts stable since prior exam. Multiple bilateral renal hypodensities many of which measure less than 1 cm the largest of these is seen in the upper pole left kidney measuring 1 cm in likely represents a cyst. This is stable since prior exam. ABDOMEN: Liver: See above. Gallbladder and bile ducts: Unremarkable. No calcified stones. No ductal dilation. Pancreas: Unremarkable. No mass. No ductal dilation. Spleen: Unremarkable. No splenomegaly. Adrenals: Unremarkable. No mass. Kidneys and ureters: See above. Stomach and bowel: Diverticulosis without evidence of diverticulitis. No obstruction. PELVIS: Appendix: No findings to suggest acute appendicitis. Bladder: Unremarkable. No mass. Reproductive: Unremarkable as visualized. ABDOMEN and PELVIS: Intraperitoneal space: Unremarkable. No free air. No significant fluid collection. Bones/joints: Postoperative changes ORIF left hip fracture. No dislocation. Soft tissues: Unremarkable. Vasculature: Unremarkable. No abdominal aortic aneurysm. Lymph nodes: Unremarkable. No enlarged lymph nodes. IMPRESSION: No acute findings in the abdomen or pelvis. Electronically signed by: Romero Warren MD 03/20/24 23:21 PM Diagnostic Findings EKG as per my interpretation : Rate 110, sinus tachycardia, normal axis, no ischemia, PVCs
[2024-03-21] MEDS: METOPROLOL TARTRATE 1 MG/ML VIAL IV STA ×2 (00:26→06:40)
[2024-03-21] MEDS ORDERED: NSS + 20MEQ KCL 20 MEQ/1,000 ML BAG IV SCH (00:30)
[2024-03-21] MEDS: ACETAMINOPHEN 1,000 MG/100 ML VIAL IV STA (01:31)
[2024-03-21] MEDS: MAGNESIUM SULFATE / D5W 1 GM/100 ML BAG IV STA (01:35)
[2024-03-21 01:57] LABS: Appearance Urine Clear (Clear); Bacteria Urine Automated None Seen (None Seen); Bilirubin Urine Negative (Negative); Blood Urine Negative (Negative); Cast Urine Automated 0-2 /lpf (0-2); Color Urine Yellow; Glucose Urine UA 1+ (Negative); Ketones Urine 2+ (Negative); Leukocyte Esterase Urine 1+ (Negative); Nitrite Urine Negative (Negative); Protein Urine Trace (Negative); RBC Urine Automated 0-2 /hpf (0-2); Specific Gravity Urine > 1.045 (1.000-1.030); Urobilinogen Urine Negative (Negative)
[2024-03-21] MEDS: POTASSIUM CHLORIDE 20 MEQ in LACTATED RINGER'S 1,000 ML IV STA (02:02)
[2024-03-21 04:40] LABS: Base Excess VBG -4.8 mEq/L; HCO3 VBG 21 mmol/L; Oxygen Saturation VBG < 60.0 %; PCO2 VBG 41 mmHg (38-50); PO2 VBG 30 mmHg; pH VBG 7.32 (7.36-7.41)
[2024-03-21 04:53] LABS: Basophils # (auto) 0.04 K/uL (0.00-0.20); Basophils % (auto) 0.6 %; Eosinophils # (auto) 0.06 K/uL (0.00-0.50); Eosinophils % (auto) 0.9 %; Immature Granulocytes # (auto) 0.01 K/uL (0.01-0.20); Immature Granulocytes % (auto) 0.2 %; Lymphocytes # (auto) 1.11 K/uL (1.20-3.40); Lymphocytes % (auto) 16.8 %; Mean Corpuscular Hemoglobin 28.1 pg (25.0-34.0); Mean Corpuscular Hgb Conc 32.4 g/dL (32.0-36.0); Mean Corpuscular Volume 86.7 fL (80.0-100.0); Mean Platelet Volume 9.1 fL (9.4-12.4); Monocytes % (auto) 9.1 %; Neutrophils # (auto) 4.78 K/uL (1.40-6.50); Neutrophils % (auto) 72.4 %; Platelet Count 271 K/uL (130-400); RDW Standard Deviation 44.2 fL (36.4-46.3); Red Blood Count 4.27 M/uL (4.20-5.40)
[2024-03-21 05:02] LABS: BUN Creatinine Ratio 36.5 (10-20); Calcium 9.4 mg/dl (8.6-10.3); Creatinine Clr Calc Pharmacy 35.2 ml/min; Potassium 3.5 mmol/L (3.5-5.1)
--- OUTSIDE RECORDS SUMMARY | 2024-03-21 07:29 | External Medical Summary | Summary of Care ---
Author Name Unknown Organization [facility] Address [address] [facility] [place] [address] Phone [phone] Care Team Providers Care Coal Trimmer Machine Operator Name Role Phone Jasbir Cason DO Primary Care Provider [phone] Reason for Visit * Reason Onset Date Comments Referral 12/23/2023 Encounter Details Date Type Department Care Team (Late st Contact Info) Description 12/23/2023 Telephone Family Practice [facility] [place] [address] [facility] [place] [address] Jasbir Cason DO [address] [facility] [place] [address] Referral Allergies Active Allergy Reactions Criticality Noted Date Comments Cefazolin Low 02/08/2021 Other reaction(s): rash on abdomen Rosuvastatin Calcium Medium 01/12/2012 Muscle pain Atorvastatin Calcium Other (Please comment) Medium 01/17/2008 Elevated CK Simvastatin Muscle pain 03/28/2009 documented as of this encounter (statuses as of 12/29/2023) Medications Medication Sig Dispensed Refills Start Date End Date Status Ferrous Sulfate 325 (65 Fe) MG Oral Tablet (Feosol)Indications :Iron deficiency anemia due to chronic blood loss Take 1 Tablet by mouth in the morning and 1 Tablet before bedtime. 180 Tablet 1 12/04/2022 Active Additional Information Patient not taking.Reported on 08/30/2023 Sertraline HCl 100 MG Oral Tablet (Zoloft)Indications :Panic disorder Take 1 Tablet by mouth in the morning. 90 Tablet 3 08/30/2023 Active Pantoprazole Sodium 40 MG Oral Tablet Delayed Release (Protonix) TAKE ONE TABLET BY MOUTH twice daily. take the first dose IN THE MORNING AT LEAST 30 MINUTES PRIOR TO BREAKFASt. do not cut, crush, or chew. 180 Tablet 1 08/30/2023 Active Losartan Potassium 25 MG Oral Tablet (Cozaar)Indications :Hypertensive heart disease without heart failure,Essential hypertension with goal blood pressure less than 140/90 Take 1 Tablet by mouth in the morning. 90 Tablet 1 08/30/2023 Active Levothyroxine Sodium 112 MCG Oral Tablet (Levoxyl) Take 1 Tablet by mouth in the morning. (at least 30 min prior to breakfast or other meds). 90 Tablet 3 08/30/2023 Active Atenolol 25 MG Oral Tablet (Tenormin)Indicatio ns:Hypertensive heart disease without heart failure Take 1 Tablet by mouth in the morning. 90 Tablet 1 08/30/2023 Active Ibuprofen 600 MG Oral Tablet (Motrin) Take 1 Tablet by mouth at bedtime as needed (pain). with food for pain 30 Tablet 5 08/30/2023 Active Diclofenac Sodium 1 % External Gel (Voltaren) Apply topically to affected area 2 times a day as needed for Pain, Moderate. Apply to L knee 100 g 5 08/30/2023 Active documented as of this encounter (statuses as of 12/29/2023) Active Problems Problem Noted Date Diagnosed Date Late onset Alzheimer's demen tia without behavioral disturbance 08/30/2023 Paroxysmal atrial tachycardia 12/16/2021 Heart valve vegetation 05/08/2021 Depression 02/10/2021 Syncope 02/10/2021 Bacteremia due to methicilli n susceptible Staphylococcus aureus (MSSA) 02/10/2021 Left medial tibial plateau fracture 01/17/2021 S/P ORIF (open reduction internal fixation) frac ture 01/17/2021 Stage 3 chronic kidney disease 10/22/2020 Overview: Per CKD protocol Benign hypertension with stage 3a chronic kidney disease 09/17/2020 Overview: Per CKD protocol ADVANCE DIRECTIVE INFORMATION 12/08/2019 Overview: No, Advance Directive brochure given to patient. Mixed stress and urge urinary incontinence 11/15 Age-related osteoporosis wit hout current pathological fracture 05/17/2019 Prediabetes 12/21/2017 Overview: Per Prediabetes protocol #1 - Arteriovenous malformation of jejunum 03/01/2017 Chronic Jason ulcer 03/01/2017 Hiatal hernia 03/01/2017 Hypertensive heart disease 12/21/2013 Cerebral aneurysm 08/07/2013 Obstructive sleep apnea syndrome 05/09/2012 Overview: AHI 6.6, 200 mins <91% and 35 mins <89% 2L of oxygen, refused cpap DME: [facility] Esophagitis 12/26/2010 Overview: ICD-10 update of inactive term Panic disorder 12/26/2010 Hyperlipidemia 12/22/2010 Postsurgical hypothyroidism 04/28/2010 Overview: 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; 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; s/p I-131 therapy as well Allergic rhinitis 08/13/2009 Hypertension Macular degeneration documented as of this encounter (statuses as of 12/29/2023) Resolved Problems Problem Noted Date Diagnosed Date Resolved Date Wound infection complicating hardware, initial encounter 02/10/2021 10/28/2022 Overview: Staphylococcus aureus (S) Acute kidney injury 02/10/2021 05/08/20 Overview: In the setting of Staphylococcus aureus bacteremia Urinary frequency 12/08/2019 05/21/2020 Food insecurity 12/21/2017 08/30/2020 Overview: Per [facility] Protocol Benign hypertension with CKD (chronic kidney disease) stage III 12/14/2017 09/19/2020 Overview: Per CKD protocol Current moderate episode of major depressive disorder without prior episode 12/14/2017 Kidney disease, chronic, sta ge III (GFR 30-59 ml/min) 08/17/2017 12/25/2017 Overview: Per CKD protocol #1 History of papillary adenoca rcinoma of thyroid 10/21/2016 02/10/2021 Papillary thyroid carcinoma 12/25/2013 01/06/2017 Overview: Surgery in 2009 Brain aneurysm 07/27/2013 03/02/2014 Overview: 3 mm 07/21 MRI BODY AND FRAME TECHNICIAN Artery stenosis 07/27/2013 02/09/2017 Overview: M1 segment, mod-severe Nocturnal hypoxemia 06/09/2012 02/11/20 21 Genetic Sleep Disorder Resea [facility] Other*[id number] 01/05/2012 12/05/2015 Follow-up examination, follo wing other surgery 03/06/2010 01/06/2017 Abdominal pain, generalized 02/06/2010 01/06/2017 Overview: Bilateral lower abdomen pain. Tubular adenoma of colon 02/06/201011/2017 Right mid thyroid mass 10/08/200901/06 Dyslipidemia, goal to be determined 04/22/2009 12/22/2010 Overview: Per Lipid Taxonomy. Benign neoplasm of colon 07/02/200606/2016 Overview: repeat colonoscvopy in 3 years Vaginitis 06/29/2003 01/06/2017 Chest pain 07/29/2002 01/06/2017 Mixed dyslipidemia 07/29/2002 12/14/200 9 Overview: Per Lipid Taxonomy. MILD ANEMIA 07/29/2002 02/09/2017 Osteoporosis 05/17/2019 documented as of this encounter (statuses as of 12/29/2023) Immunizations Name Administration Dates Next Due COVID-19 mRNA, LNP-s, No Pre serve, 2-Dose Series (Pfizer) 08/05/2020,07/09/2020 PPD 08/07/2009 Pneumococcal Conjugate Vacc, 13 Valent (Prevnar) 03/04/2015 Pneumococcal Polysaccharide PPV23 (Pneumovax) 06/24/2011 Season Influenza, Quad, PF, Adjuvanted, 65+ Yrs, IM (FLUAD) 04/03/2020 Seasonal Influenza, PF, 6 M & above, IM , (FluLaval or Fluzone) 04/05/2018,02/09/2017 Seasonal Influenza, Quadriva lent, No Preserve, IM 03/03/2016 03/03/2017 Seasonal Influenza, Split, I IV3, With Preserve, Inj 01/15/2015,03/02/2014,02/23/2013,08/2011,01/27/2011,02/06/2010,01/11/20 09,02/20/2008,02/07/2007,03/03/2006 Seasonal Influenza, Trivalen t, Adjuvanted, 65+ yrs 03/06/2019 Varicella Zoster Vaccine (Adult) 12/24/2011 documented as of this encounter Social History Tobacco Use Types Packs/Day Years Used Date Smoking Tobacco: Never Smokeless Tobacco: Never Alcohol Use Standard Drinks/Week Comments No 0 (1 standard drink = 0.6 oz pur e alcohol) PHQ-2 Answer Date Recorded PHQ-2 Score 0 12/06/2018 Hunger Vital Sign Answer Date Recorded Worried About Running Out of Food in the Last Ye ar Never true 05/17/2019 Ran Out of Food in the Last Year Never true 05/17/2019 Utilities Answer Date Recorded Do you have trouble paying y our heating, water, or electric bill? (Adult - for ages 18 years and over) Not on file 10/26/2023 Is your family able to pay t he heat, water, or electric bill? (Household - for ages 0-17 years) Not on file 10/26/2023 Does your family have access to good internet? (Household - for ages 0-17 years) Not on file 10/26/2023 Social Connections Answer Date Recorded How often do you feel lonely or isolated from those around you? (Adult - for ages 18 years and over) Not on file 10/26/2023 Sex and Gender Information Value Date Recorded Sex Assigned at Female 10/07/2018 1:11 PM EDT Gender Identity Female 10/07/2018 1:11 PM EDT Sexual Orientation Straight 10/07/2018 1: 11 PM EDT Job Start Date Occupation Industry Not on file Not on file Not on file documented as of this encounter Functional Status Functional Status Response Date of Assess ment Are you deaf or do you have serious difficulty h earing? No 09/13/2013 Are you blind or do you have serious difficulty seeing, even when wearing glasses? No 09/13/2013 Do you have serious difficul ty walking or climbing stairs? (5 years old or older) No 09/13/2013 Do you have difficulty dress ing or bathing? (5 years old or older) No 09/13/2013 Because of a physical, menta l, or emotional condition, do you have difficulty doing errands alone such as visiting a doctor s office or shopping? (15 years old or older) No 09/14/19 14 Cognitive Status Response Date of Assessm ent Because of a physical, menta l, or emotional condition, do you have serious difficulty concentrating, remembering, or making decisions? (5 years old or older) No 09/13/2013 documented as of this encounter Miscellaneous Notes * Telephone Encounter - Jasbir Cason DO - 12/29/2023 3:01 PM EDT I'll put the order for it with her letter from a separate call. * Telephone Encounter - Mery Naik RN - 12/28/2023 12:48 PM EDT See letter request telephone message of 12/23/23. * Telephone Encounter - Natividad Hernandez OSA - 12/23/2023 4:38 PM EDT Kathia called to follow up because she hasn't received a wheel chair yet and it's been ordered. Please advise. documented in this encounter Plan of Treatment Upcoming Encounters Date Type Department Care Team (Late st Contact Info) Description 03/29/2024 1:00 PM EST Office Visit Family Practice [facility] [place] [address] [place] [address] Jasbir Cason DO [address] [place] [address] Health Maintenance Due Date Last Done Comments DTaP,Tdap,and Td Vaccines (1 - Tdap) 07/15/2000 07/14/2000 Zoster Vaccines (2 of 3) 02/18/2012 12/24/2011 Adult Wellness Visit 09/14/2015 09/13/2014 DXA Scan 02/24/2018 02/25/2016, 09/0 07/2013, 12/02/2011, Additional history exists *BISPHONATE OR OTHER ACCEPTABLE MEDICATION NEEDED FOR OSTEOPOROSIS (REFER TO SMARTSET #1146) 05/20/2019 Depression Monitoring 11/15/2020 11/16/2019 COVID-19 Vaccine ( season) 2023 05/07/2021, 05/07/2021, 08/05/2020, Additional history exists CKD PHOS USE SMARTSET 59989 11/24/202311/07, 12/16/2021, 05/30/2021, Additional history exists HbA1c 11/24/2023 11/23/2022, 0801/2022, 10/31/2020, Additional history exists Influenza Vaccine (FLU shot) (#1) 2024 04/03/2020, 04/03/2020, 03/06/2019, Additional history exists Albumin/Creatinine Ratio 08/29/2024 08/30/2023, 11/08 CKD HGB USE SMARTSET 06968 08/29/202408/29, 08/30/2023, 11/23/2022, Additional history exists TSH 08/29/2024 08/30/2023, 08/09, 11/23/2022, Additional history exists VITAMIN D LEVEL ONCE IN A LIFETIME-USE SMARTSET# [id number] Completed 11/23/2019, 11/16/2019, 07/17/2019, Additional history exists Pneumococcal Vaccine: 65+ Years Completed 07/21/2023, 04/03/2020, 01/17/2016, Additional history exists HPV (Gardasil) Vaccine Aged Out No lo nger eligible based on patient's age to complete this topic Hepatitis B Vaccine Aged Out No longe r eligible based on patient's age to complete this topic MENINGOCOCCAL (MENACTRA/MENVEO) Aged Out No longer eligible based on patient's age to complete this topic documented as of this encounter Medical Devices Not on filedocumented as of this encounter Advance Directives * Full Code (Latest Code Status on File) Date Activated Date Inactivated Comments 10/17/2013 7:58 AM 10/17/2013 9:23 PM This order r eflects the patients wishes and were consensually agreed upon. * Full Code Date Activated Date Inactivated Comments 03/17/2010 7:37 PM 03/18/2010 2:28 PM This order r eflects the patients wishes and were consensually agreed upon. Care Teams Coal Trimmer Machine Operator Relationship Specialty Start Date End Date Jasbir Cason DO [address] [place] [address] PCP - General Family Medicine 11/21/20 documented as of this encounter
--- OUTSIDE RECORDS SUMMARY | 2024-03-21 07:29 | External Medical Summary | Summary of Care ---
Author Name Unknown Organization [facility] Address [address] [facility] [place] [address] Phone [phone] Care Team Providers Care Securities Research Analyst Name Role Phone Ambika Zambrano DO Primary Care Provider [phone] Reason for Visit * Reason Comments eRx-Medication Refill Encounter Details Date Type Department Care Team (Late st Contact Info) Description 02/24/2024 Refill Family Practice [facility] [place] [address] [place] [address] Ambika Zambrano DO [address] [facility] [place] [address] Hypertensive heart disease without heart failure; Essential hypertension with goal blood pressure less than 140/90 Allergies Active Allergy Reactions Criticality Noted Date Comments Cefazolin Low 02/08/2021 Other reaction(s): rash on abdomen Rosuvastatin Calcium Medium 01/12/2012 Muscle pain Atorvastatin Calcium Other (Please comment) Medium 01/17/2008 Elevated CK Simvastatin Muscle pain 03/28/2009 documented as of this encounter (statuses as of 02/25/2024) Medications Medication Sig Dispensed Refills Start Date End Date Status Ferrous Sulfate 325 (65 Fe) MG Oral Tablet (Feosol)Indicatio ns:Iron deficiency anemia due to chronic blood loss Take 1 Tablet by mouth in the morning and 1 Tablet before bedtime. 180 Tablet 1 12/04/2022 Active Additional Information Patient not taking.Reported on 08/30/2023 Sertraline HCl 100 MG Oral Tablet (Zoloft)Indicatio ns:Panic disorder Take 1 Tablet by mouth in the morning. 90 Tablet 3 08/30/2023 Active Pantoprazole Sodium 40 MG Oral Tablet Delayed Release (Protonix) TAKE ONE TABLET BY MOUTH twice daily. take the first dose IN THE MORNING AT LEAST 30 MINUTES PRIOR TO BREAKFASt. do not cut, crush, or chew. 180 Tablet 1 08/30/2023 Active Levothyroxine Sodium 112 MCG Oral Tablet (Levoxyl) Take 1 Tablet by mouth in the morning. (at least 30 min prior to breakfast or other meds). 90 Tablet 3 08/30/2023 Active Ibuprofen 600 MG Oral Tablet (Motrin) Take 1 Tablet by mouth at bedtime as needed (pain). with food for pain 30 Tablet 5 08/30/2023 Active Diclofenac Sodium 1 % External Gel (Voltaren) Apply topically to affected area 2 times a day as needed for Pain, Moderate. Apply to L knee 100 g 5 08/30/2023 Active Atenolol 25 MG Oral Tablet (Tenormin)Indicat ions:Hypertensive heart disease without heart failure TAKE 1 TABLET BY MOUTH IN THE MORNING 90 Tablet 1 02/25/2024 Active Losartan Potassium 25 MG Oral Tablet (Cozaar)Indicatio ns:Hypertensive heart disease without heart failure,Essential hypertension with goal blood pressure less than 140/90 TAKE 1 TABLET BY MOUTH IN THE MORNING 90 Tablet 1 02/25/2024 Active Losartan Potassium 25 MG Oral Tablet (Cozaar)Indicatio ns:Hypertensive heart disease without heart failure,Essential hypertension with goal blood pressure less than 140/90 Take 1 Tablet by mouth in the morning. 90 Tablet 1 08/30/2023 02/25/20 24 Discontinued Atenolol 25 MG Oral Tablet (Tenormin)Indicat ions:Hypertensive heart disease without heart failure Take 1 Tablet by mouth in the morning. 90 Tablet 1 08/30/2023 02/25/20 24 Discontinued documented as of this encounter (statuses as of 02/25/2024) Active Problems Problem Noted Date Diagnosed Date Late onset Alzheimer's demen tia without behavioral disturbance 08/30/2023 Paroxysmal atrial tachycardia 12/16/2021 Heart valve vegetation 05/08/2021 Depression 02/10/2021 Syncope 02/10/2021 Bacteremia due to methicilli n susceptible Staphylococcus aureus (MSSA) 02/10/2021 Left medial tibial plateau fracture 01/17/2021 S/P ORIF (open reduction internal fixation) damian coats 01/17/2021 Stage 3 chronic kidney disease 10/22/2020 [...] as of this encounter (statuses as of 02/25/2024) Resolved Problems Problem Noted Date Diagnosed Date [...] major depressive disorder without prior episode 12/14/2017 1 Kidney disease, chronic, sta ge III (GFR 30-59 ml/min) 08/17/2017 12/25/2017 Overview: Per CKD protocol #1 History of papillary adenoca rcinoma of thyroid 10/21/2016 02/10/2021 Papillary thyroid carcinoma 12/25/2013 01/06/2017 Overview: Surgery in 2009 Brain aneurysm 07/27/2013 03/02/2014 Overview: 3 mm 07/21 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 Tubular adenoma of colon 02/06/201011/2017 Right mid thyroid mass 10/08/200901/06 Dyslipidemia, goal to be determined 04/22/2009 12/22/2010 Overview: Per Lipid Taxonomy. Benign neoplasm of colon 07/02/200606/2016 Overview: repeat colonoscvopy in 3 years Vaginitis 06/29/2003 01/06/2017 Chest pain 07/29/2002 01/06/2017 Mixed dyslipidemia 07/29/2002 9 Overview: Per Lipid Taxonomy. MILD ANEMIA 07/29/2002 02/09/2017 Osteoporosis 05/17/2019 documented as of this encounter (statuses as of 02/25/2024) Immunizations Name Administration Dates Next Due COVID-19 mRNA, LNP-s, No Pre serve, 2-Dose Series (Pfizer) 08/05/2020,07/09/2020 PPD 08/07/2009 Pneumococcal Conjugate Vacc, 13 Valent (Prevnar) 03/04/2015 Pneumococcal Polysaccharide PPV23 (Pneumovax) 06/24/2011 Season Influenza, Quad, PF, Adjuvanted, 65+ Yrs, IM (FLUAD) 04/03/2020 Seasonal Influenza Vac., MDV , IM, 0.5 mL (Fluzone) 01/15/2015,03/02/2014,02/23/2013,08/2011,01/27/2011,02/06/2010,01/11/20,02/20/2008,02/07/2007,03/03/2006 Seasonal Influenza, PF, 6 M & above, IM , (FluLaval or Fluzone) 04/05/2018,02/09/2017 Seasonal Influenza, Quadriva lent, No Preserve, IM 03/03/2016 03/03/2017 Seasonal Influenza, Trivalen t, Adjuvanted, 65+ YRS, PF, (Fluad) 03/06/2019 Varicella Zoster Vaccine (Adult) 12/24/2011 documented [...] encounter Miscellaneous Notes * Telephone Encounter - Dinorah Azul RPh - 02/25/2024 8:53 AM EDTSigned Prescriptions: Disp Refills Atenolol 25 MG Oral Tablet (Tenormin) 90 Tab*1 Sig: TAKE 1 TABLET BY MOUTH IN THE MORNINGAuthorizing Provider: AMBIKA ZAMBRANO User: DINORAH AZUL Losartan Potassium 25 MG Oral Tablet (Coza*90 Tab*1 Sig: TAKE 1 TABLET BY MOUTH IN THE MORNINGAuthorizingProvider: AMBIKA ZAMBRANO User: DINORAH AZUL documented in this encounter Plan of Treatment Upcoming Encounters Date Type Department Care Team (Late st Contact Info) Description 03/29/2024 1:00 PM EST Office Visit Family Practice [place] [facility] [place] [address] [facility] [place] [address] Ambika Zambrano DO [address] [facility] [place] [address] Health Maintenance Due Date Last Done Comments DTap/Tdap Vaccines (1 - Tdap) 07/15/2000 07/14/2000 Zoster Vaccines (2 of 3) 02/18/2012 12/24/2011 Adult Wellness Visit 09/14/2015 09/13/2014 DXA Scan 02/24/2018 02/25/2016, 07/2013, 12/02/2011, Additional history exists *BISPHONATE OR OTHER ACCEPTABLE MEDICATION NEEDED FOR OSTEOPOROSIS (REFER TO SMARTSET #1146) 05/20/2019 Depression Monitoring 11/15/2020 11/16/2019 CKD PHOS USE SMARTSET 96376 11/24/202311/07, 12/16/2021, 05/30/2021, Additional history exists HbA1c 11/24/2023 11/23/2022, 0801/2022, 10/31/2020, Additional history exists COVID-19 Vaccine ( season) 2024 05/07/2021, 05/07/2021, 08/05/2020, Additional history exists Influenza Vaccine (FLU shot) (#1) 2024 04/03/2020, 04/03/2020, 03/06/2019, Additional history exists Albumin/Creatinine Ratio 08/29/2024 08/30/2023, 11/08 CKD HGB USE SMARTSET 13276 08/29/202408/29, 08/30/2023, 11/23/2022, Additional history exists TSH 08/29/2024 08/30/2023, 08/09, 11/23/2022, Additional history exists VITAMIN D LEVEL ONCE IN A LIFETIME-USE SMARTSET# 59908 Completed 11/23/2019, 11/16/2019, 07/17/2019, Additional history exists [...] Not on filedocumented as of this encounter Visit Diagnoses Diagnosis Hypertensive heart disease without heart failure Unspecified hypertensive heart disease without heart failure Essential hypertension with goal blood pressure less than 140/90 documented in this encounter Advance Directives * Full Code (Latest Code Status on File) Date Activated Date Inactivated Comments 10/17/2013 7:58 AM 10/17/2013 9:23 PM This order r eflects the patients wishes and were consensually agreed upon. * Full Code Date Activated Date Inactivated Comments 03/17/2010 7:37 PM 03/18/2010 2:28 PM This order r eflects the patients wishes and were consensually agreed upon. Care Teams Securities Research Analyst Relationship Specialty Start Date End Date Ambika Zambrano DO [address] [place] [address] PCP - General Family Medicine 11/21/20 documented as of this encounter
--- OUTSIDE RECORDS SUMMARY | 2024-03-21 07:29 | External Medical Summary | Summary of Care ---
Author Name Unknown Organization [facility] Address [address] [facility] [place] [address] Phone [phone] Care Team Providers Care Buck Presser Name Role Phone Jasbir Cason DO Primary Care Provider [phone] Reason for Visit * Reason Onset Date Comments Letter Requests 12/23/2023 Encounter Details Date Type Department Care Team (Late st Contact Info) Description 12/23/[address] [facility] [address] [facility] [place] [address] Jasbir Cason DO [address] [facility] [place] [address] Letter Requests Allergies Active Allergy Reactions Criticality Noted Date Comments Cefazolin Low 02/08/2021 Other reaction(s): rash on abdomen Rosuvastatin Calcium Medium 01/12/2012 Muscle pain Atorvastatin Calcium Other (Please comment) Medium 01/17/2008 Elevated CK Simvastatin Muscle pain 03/28/2009 documented as of this encounter (statuses as of 2023) Medications Medication Sig Dispensed Refills Start Date [...] as of this encounter (statuses as of 2023) Active Problems Problem Noted Date Diagnosed Date [...] as of this encounter (statuses as of 2023) Resolved Problems Problem Noted Date Diagnosed Date [...] 07/27/2013 03/02/2014 Overview: 3 mm 07/21 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 Tubular adenoma of colon 02/06/201011/2017 Right mid thyroid mass 10/08/200901/06 Dyslipidemia, goal to be determined 04/22/2009 12/22/2010 Overview: Per Lipid Taxonomy. Benign neoplasm of colon 07/02/200606/2016 Overview: repeat colonoscvopy in 3 years Vaginitis 06/29/2003 01/06/2017 Chest pain 07/29/2002 01/06/2017 Mixed dyslipidemia 07/29/2002 12//200 9 Overview: Per Lipid Taxonomy. MILD ANEMIA 07/29/2002 02/09/2017 Osteoporosis 05/17/2019 documented as of this encounter (statuses as of 2023) Immunizations Name Administration Dates Next Due COVID-19 mRNA, LNP-s, No Pre serve, 2-Dose Series ([employer]) 08/05/2020,07/09/2020 PPD 08/07/2009 Pneumococcal Conjugate Vacc, 13 [...] encounter Miscellaneous Notes * Telephone Encounter - Melvin Hartley CMA - 12/29/2023 3:15 PM EDT Spoke with pt, will need to have a family member pecan picker letter. Letter placed at check out in Family Practice. Nonpreferred method of mail was also used for a copy for pt, pt ok'd. * Telephone Encounter - Jasbir Cason DO - 12/29/2023 3:00 PM EDT I'll bring to you * Telephone Encounter - Natividad Hernandez OSA - 12/23/2023 4:29 PM EDT Type of letter requested: Letter to say she's wheel chair bound Does the letter need to provide any specific information: She can't get to her mailbox because it'stoo close to the road, the driveway is too long and she can't get off her porch. Would you like letter faxed or picked up?: fax Fax number: unsure (tried calling post office, there was no answer) Number to be called when ready to be picked up: [phone] Date needed: as soon as possible documented in this encounter Plan of Treatment Upcoming Encounters Date Type Department Care Team (Late st Contact Info) Description 03/29/2024 1:00 PM EST Office Visit Family Practice [place] [address] [facility] [place] [address] Jasbir Cason DO [address] [facility] [place] [address] Health Maintenance Due Date Last Done Comments DTaP,Tdap,and Td Vaccines (1 - Tdap) 07/15/2000 07/14/2000 Zoster Vaccines (2 of 3) 02/18/2012 12/24/2011 Adult Wellness Visit 09/14/2015 09/13/2014 DXA Scan 02/24/2018 02/25/2016, 0907/2013, 12/02/2011, Additional history exists *BISPHONATE OR OTHER ACCEPTABLE MEDICATION NEEDED FOR OSTEOPOROSIS (REFER TO SMARTSET #1146) 05/20/2019 Depression Monitoring 11/15/2020 11/16/2019 COVID-19 Vaccine ( season) 2023 05/07/2021, 05/07/2021, 08/05/2020, Additional history exists CKD PHOS USE SMARTSET 27516 11/24/202311/07, 12/16/2021, 05/30/2021, Additional history exists HbA1c 11/24/2023 11/23/2022, 08/01/2022, 10/31/2020, Additional history exists Influenza Vaccine (FLU shot) (#1) 2024 04/03/2020, 04/03/2020, 03/06/2019, Additional history exists Albumin/Creatinine Ratio 08/29/2024 08/30/2023, 11/08 CKD HGB USE SMARTSET 01938 08/29/202408/29, 08/30/2023, 11/23/2022, Additional history exists TSH 08/29/2024 08/30/2023, 08/09, 11/23/2022, Additional history exists VITAMIN D LEVEL ONCE IN A LIFETIME-USE SMARTSET# 47658 Completed 11/23/2019, 11/16/2019, 07/17/2019, Additional history exists [...] and were consensually agreed upon. Care Teams Buck Presser Relationship Specialty Start Date End Date Jasbir Cason DO [address] [place] [address] PCP - General Family Medicine 11/21/20 documented as of this encounter
--- OUTSIDE RECORDS SUMMARY | 2024-03-21 07:30 | External Medical Summary | Summary of Care ---
Author Name Unknown Organization [facility] Address [address] [facility] [place] [address] Phone [phone] Care Team Providers Care Area Development Consultant Name Role Phone Jasbir Cason DO Primary Care Provider [phone] Reason for Referral * Evaluate & Treat - Unlimited Visits (Within 30 days (routine)) - Authorized Specialty Diagnoses / Procedures Referred By Hector farah Referred To Contact Physical Therapy / Physical Medicine And Rehab Diagnoses Ambulatory dysfunction Upper extremity weakness Franca Gtz DO 200 [facility] [place] [address] Referral ID Status Reason Start Date Expiration Date Visits Requested Visits Authorized [id number] Authorized Specialty Services Required 10/20/2023 999 999 Question Answer Referral Priority Within 30 days (routine) Where should this appointment be scheduled? Addi Comments Pt requests mobility evaluation for switching from plain wheelchair to hoverround/ electric driven wheelchair due to upper extremity weakness Reason for Visit * Reason Onset Date Comments Advice 10/11/2023 Encounter Details Date Type Department Care Team (Late st Contact Info) Description 10/11/2023 Telephone Family Practice [place] [address] [place] [address] Jasbir Cason DO 200 [facility] [place] [address] Advice Allergies Active Allergy Reactions Criticality Noted Date Comments Cefazolin Low 02/08/2021 Other reaction(s): rash on abdomen Rosuvastatin Calcium Medium 01/12/2012 Muscle pain Atorvastatin Calcium Other (Please comment) Medium 01/17/2008 Elevated CK Simvastatin Muscle pain 03/28/2009 documented as of this encounter (statuses as of 11/26/2023) Medications Medication Sig Dispensed Refills Start Date [...] as of this encounter (statuses as of 11/26/2023) Active Problems Problem Noted Date Diagnosed Date [...] as of this encounter (statuses as of 11/26/2023) Resolved Problems Problem Noted Date Diagnosed Date [...] 07/27/2013 03/02/2014 Overview: 3 mm 07/21 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 Tubular adenoma of colon 02/06/201011/2017 Right mid thyroid mass 10/08/200901/06 Dyslipidemia, goal to be determined 04/22/2009 12/22/2010 Overview: Per Lipid Taxonomy. Benign neoplasm of colon 07/02/200606/2016 Overview: repeat colonoscvopy in 3 years Vaginitis 06/29/2003 01/06/2017 Chest pain 07/29/2002 01/06/2017 Mixed dyslipidemia 07/29/200204/22/200 9 Overview: Per Lipid Taxonomy. MILD ANEMIA 07/29/2002 02/09/2017 Osteoporosis 05/17/2019 documented as of this encounter (statuses as of 11/26/2023) Immunizations Name Administration Dates Next Due COVID-19 mRNA, LNP-s, No Pre serve, 2-Dose Series (Pfizer) 08/05/2020,07/09/2020 PPD 08/07/2009 Pneumococcal Conjugate Vacc, 13 Valent (Prevnar) 03/04/2015 Pneumococcal Polysaccharide PPV23 (Pneumovax) 06/24/2011,03/09/2003 Season Influenza, Quad, PF, Adjuvanted, 65+ Yrs, IM (FLUAD) 04/03/2020 Seasonal Influenza, PF, 6 M & above, IM , (FluLaval or Fluzone) 04/05/2018,02/09/2017 Seasonal Influenza, Quadriva lent, No Preserve, IM 03/03/2016 03/03/2017 Seasonal Influenza, Split, I IV3, With Preserve, Inj 01/15/2015,03/02/2014,02/23/2013,08/2011,01/27/2011,02/06/2010,01/11/20 09,02/20/2008,02/07/2007,03/03/2006,1 05/19/2004,03/09/2003,03/07/2002,04/15,04/08/2000 04/13/2001 Seasonal Influenza, Trivalen t, Adjuvanted, 65+ yrs 03/06/2019 TD - Tetanus/Diptheria (ADULT) 07/14/2000 Varicella Zoster Vaccine (Adult) 12/24/2011 documented as [...] encounter Miscellaneous Notes * Telephone Encounter - Joanne Keene OSA - 11/26/2023 2:10 PM EDT Patient has been notified of the message. Pt asks for a call back to discuss the ordered wheelchair. Please note: pt says that she is in a wheelchair and it takes her a bit of time to reach the phone.If she doesn't answer the first time, please try again. She said to relay that she doesn't leave the house except to go to the dr office so she is there. * Telephone Encounter - Mery Naik RN - 10/28/2023 11:11 AM EDT Someone answered the phone but hung up after I said I was calling from [facility]. If they call back, please address below. * Telephone Encounter - Grecia Galeana LPN - 10/22/2023 11:11 AM EDT I tried calling patient to make her aware but the phone just rang and nobody picked up, will try again later. * Telephone Encounter - Franca Gtz DO - 10/20/2023 10:51 AM EDT Ordered- please contact and notify patient Franca Gtz DO * Telephone Encounter - Franca Gtz DO - 10/19/2023 4:33 PM EDT Do you know What order do they need? Who will do mobility eval? PT? [facility] for house? Franca Gtz DO * Telephone Encounter - Amanda Cook LPN - 10/19/2023 10:24 AM EDT Please review message below and advise * Telephone Encounter - Araceli Smith OSA - 10/11/2023 12:32 PM EDT A mobility evaluation is being requested for this patient. Type of mobility evaluation needed (Scooter/Hover Round, etc.): Wheelchair/ Ramp for home Who is requesting the mobility evaluation?: Patient Phone number of requestor: [phone] Diagnosis/reason for the mobility evaluation request: Patient has been in a wheelchair to get around her home but is it a very basic wheelchair and she is using her feet to push herself around. Patient is still having the left leg pain so it makes it hard to wheel around some days. documented in this encounter Plan of Treatment Upcoming Encounters Date Type Department Care Team (Late st Contact Info) Description 03/29/2024 1:00 PM EST Office Visit Family Practice [facility] [address] [facility] [place] [address] Jasbir Cason DO 200 [facility] [place] [address] Scheduled Referrals Name Type Priority Associated Diagnoses Orde r Schedule PHYSICAL THERAPY REFERRAL OP Referral Within 30 days (routine) Ambulatory dysfunction Upper extremity weakness Ordered: 10/20/2023 Health Maintenance Due Date Last Done Comments DTaP,Tdap,and Td Vaccines (1 - Tdap) 07/15/2000 07/14/2000 Zoster Vaccines (2 of 3) 02/18/2012 12/24/2011 DXA Scan 02/24/2018 02/25/2016, 07/2013, 12/02/2011, Additional history exists *BISPHONATE OR OTHER ACCEPTABLE MEDICATION NEEDED FOR OSTEOPOROSIS (REFER TO SMARTSET #1146) 05/20/2019 Depression Monitoring 11/15/2020 11/16/2019 COVID-19 Vaccine ( season) 2023 05/07/2021, 05/07/2021, 08/05/2020, Additional history exists CKD PHOS USE SMARTSET 44500 11/24/202311/07, 12/16/2021, 05/30/2021, Additional history exists HbA1c 11/24/2023 11/23/2022, 01/2022, 10/31/2020, Additional history exists Influenza Vaccine (FLU shot) (#1) 2024 04/03/2020, 04/03/2020, 03/06/2019, Additional history exists Albumin/Creatinine Ratio 08/29/2024 08/30/2023, 11/08 CKD HGB USE SMARTSET 18015 08/29/202408/29, 08/30/2023, 11/23/2022, Additional history exists TSH 08/29/2024 08/30/2023, 08/09, 11/23/2022, Additional history exists VITAMIN D LEVEL ONCE IN A LIFETIME-USE SMARTSET# 30739 Completed 11/23/2019, 11/16/2019, 07/17/2019, Additional history exists [...] as of this encounter Visit Diagnoses Diagnosis Ambulatory dysfunction- Primary Upper extremity weakness Other musculoskeletal symptoms referable to limbs documented in this encounter Advance Directives * [...] and were consensually agreed upon. Care Teams Area Development Consultant Relationship Specialty Start Date End Date Jasbir Cason DO [address] [place] [address] PCP - General Family Medicine 11/21/20 documented as of this encounter
--- OUTSIDE RECORDS SUMMARY | 2024-03-21 07:30 | External Medical Summary | Summary of Care ---
Author Name Unknown Organization [facility] Address [address] [facility] [place] [address] Phone [phone] Care Team Providers Care Gynaecological Oncologist Name Role Phone Jasbir Cason DO Primary Care Provider [phone] Reason for Referral * Evaluate & Treat - Unlimited Visits (Within 30 days (routine)) - Authorized Specialty Diagnoses / Procedures Referred By Hector farah Referred To Contact Physical Therapy / Physical Medicine And Rehab Diagnoses Ambulatory dysfunction Upper extremity weakness Franca Gtz DO 200 [facility] [place] [address] Referral ID Status Reason Start Date Expiration Date Visits Requested Visits Authorized [id number] Authorized Specialty Services Required 10/20/2023 999 999 [...] State [place] [address] [place] [address] Jasbir Cason DO 200 [facility] [place] [address] Advice Allergies Active Allergy Reactions Criticality Noted Date Comments Cefazolin Low 02/08/2021 Other reaction(s): rash on abdomen Rosuvastatin Calcium Medium 01/12/2012 Muscle pain Atorvastatin Calcium Other (Please comment) Medium 01/17/2008 Elevated CK Simvastatin Muscle pain 03/28/2009 documented as of this encounter (statuses as of 12/08/2023) Medications Medication Sig Dispensed Refills Start Date [...] as of this encounter (statuses as of 12/08/2023) Active Problems Problem Noted Date Diagnosed Date [...] as of this encounter (statuses as of 12/08/2023) Resolved Problems Problem Noted Date Diagnosed Date [...] 07/27/2013 03/02/2014 Overview: 3 mm 07/21 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 (5 years old or older) No 09/13/2013 documented as of this encounter Miscellaneous Notes * Telephone Encounter - Linda Soni LPN - 12/08/2023 10:10 AM EDT Spoke with pt and she did not have any information she just wanted to know if she was getting a newchair Pt could not give any details what her current chair, just that it is a normal wheelchair and did not have foot pedals. * Telephone Encounter - Joanne Keene OSA [...] after I said I was calling from [facility]. If they call back, please address below. [...] mobility evaluation?: Patient Phone number of requestor: [phone] Diagnosis/reason for the mobility evaluation request: Patient [...] 1:00 PM EST Office Visit Family Practice [facility] [address] [facility] [place] [address] Jasbir Cason DO [address] [facility] [place] [address] Scheduled Referrals Name Type Priority Associated Diagnoses [...] Additional history exists CKD PHOS USE SMARTSET 75572 11/24/2023 07/11/2022, 12/16/2021, 05/30/2021, Additional history exists HbA1c 11/24/2023 11/23/2022, 08/0 01/2022, 10/31/2020, Additional history exists Influenza Vaccine (FLU shot) (#1) 2024 04/03/2020, 04/03/2020, 03/06/2019, Additional history exists Albumin/Creatinine Ratio 08/29/2024 08/30/2023, 11/08 CKD HGB USE SMARTSET 42557 08/29/202408/29, 08/30/2023, 11/23/2022, Additional history exists TSH 08/29/2024 08/30/2023, 08/09, 11/23/2022, Additional history exists VITAMIN D LEVEL ONCE IN A LIFETIME-USE SMARTSET# 13001 Completed 11/23/2019, 11/16/2019, 07/17/2019, Additional history exists [...] and were consensually agreed upon. Care Teams Gynaecological Oncologist Relationship Specialty Start Date End Date Jasbir Cason DO [address] [place] [address] PCP - General Family Medicine 11/21/20 documented as of this encounter
--- OUTSIDE RECORDS SUMMARY | 2024-03-21 07:30 | External Medical Summary | Summary of Care ---
Author Name Unknown Organization [facility] Address [address] [facility] [place] [address] Phone [phone] Care Team Providers Care Continuous Improvement Coordinator Name Role Phone Jasbir Cason DO Primary Care Provider [phone] Reason for Referral * Evaluate & Treat - Unlimited Visits (Within 30 days (routine)) - Authorized Specialty Diagnoses / Procedures Referred By Hector farah Referred To Contact Physical Therapy / Physical Medicine And Rehab Diagnoses Ambulatory dysfunction Upper extremity weakness Franca Gtz DO 200 [facility] [place] [address] Referral ID Status Reason Start Date Expiration Date Visits Requested Visits Authorized [id number] Authorized Specialty Services Required 10/20/2023 999 999 [...] State [place]eno [address] [place] [address] Jasbir Cason DO 200 [facility] [place] [address] Advice Allergies Active Allergy Reactions Criticality Noted [...] 07/27/2013 03/02/2014 Overview: 3 mm 07/21 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 The goal is to use this to helpget her a better wheelchair. * Telephone Encounter - Linda Soni LPN [...] after I said I was calling from [facility]. If they call back, please address [...] mobility evaluation?: Patient Phone number of requestor: [phone] Diagnosis/reason for the mobility evaluation request: Patient [...] Visit Family Practice [place] [address] [place] [address] [address] Jasbir Cason DO [address] [place] [address] Scheduled Referrals Name Type Priority Associated Diagnoses Orde r Schedule PHYSICAL THERAPY REFERRAL OP Referral Within 30 days (routine) Ambulatory dysfunction Upper extremity weakness Ordered: 10/20/2023 Health Maintenance Due Date Last Done Comments DTaP,Tdap,and Td Vaccines (1 - Tdap) 07/15/2000 07/14/2000 Zoster Vaccines (2 of 3) 02/18/2012 12/24/2011 DXA Scan 02/24/2018 02/25/2016, 0907/2013, 12/02/2011, Additional history exists *BISPHONATE OR OTHER ACCEPTABLE MEDICATION NEEDED FOR OSTEOPOROSIS (REFER TO SMARTSET #1146) 05/20/2019 Depression Monitoring 11/15/2020 11/16/2019 COVID-19 Vaccine ( season) 2023 05/07/2021, 05/07/2021, 08/05/2020, Additional history exists CKD PHOS USE SMARTSET 50758 11/24/202311/07, 12/16/2021, 05/30/2021, Additional history exists HbA1c 11/24/2023 11/23/2022, 0801/2022, 10/31/2020, Additional history exists Influenza Vaccine (FLU shot) (#1) 2024 04/03/2020, 04/03/2020, 03/06/2019, Additional history exists Albumin/Creatinine Ratio 08/29/2024 08/30/2023, 11/08 CKD HGB USE SMARTSET 16041 08/29/202408/29, 08/30/2023, 11/23/2022, Additional history exists TSH 08/29/2024 08/30/2023, 08/09, 11/23/2022, Additional history exists VITAMIN D LEVEL ONCE IN A LIFETIME-USE SMARTSET# 33853 Completed 11/23/2019, 11/16/2019, 07/17/2019, Additional history exists [...] and were consensually agreed upon. Care Teams Continuous Improvement Coordinator Relationship Specialty Start Date End Date Jasbir Cason DO [address] [place] [address] PCP - General Family Medicine 11/21/20 documented as of this encounter
--- OUTSIDE RECORDS SUMMARY | 2024-03-21 07:30 | External Medical Summary | Summary of Care ---
Author Name Unknown Organization [facility] Address [address] [facility] [place] [address] Phone [phone] Care Team Providers Care Supply Chain Buyer Name Role Phone Jasbir Cason DO Primary Care Provider [phone] Reason for Visit * Reason Onset Date Comments Referral 12/10/2023 Encounter Details Date Type Department Care Team (Late st Contact Info) Description 12/10/2023 Telephone Family Practice [facility] [place] [address] [facility] [place] [address] Jasbir Cason DO 200 [facility] [place] [address] Referral Allergies Active Allergy Reactions Criticality Noted Date Comments Cefazolin Low 02/08/2021 Other reaction(s): rash on abdomen Rosuvastatin Calcium Medium 01/12/2012 Muscle pain Atorvastatin Calcium Other (Please comment) Medium 01/17/2008 Elevated CK Simvastatin Muscle pain 03/28/2009 documented as of this encounter (statuses as of 12/14/2023) Medications Medication Sig Dispensed Refills Start Date [...] as of this encounter (statuses as of 12/14/2023) Active Problems Problem Noted Date Diagnosed Date [...] as of this encounter (statuses as of 12/14/2023) Resolved Problems Problem Noted Date Diagnosed Date [...] 07/27/2013 03/02/2014 Overview: 3 mm 07/21 MRI INFORMATICS ANALYST Artery stenosis 07/27/2013 02/09/2017 Overview: M1 segment, mod-severe Nocturnal hypoxemia 06/09/2012 02/11/20 21 Genetic Sleep Disorder Resea [facility] Other*[id number] 01/05/2012 12/05/2015 Follow-up examination, follo wing other [...] as of this encounter (statuses as of 12/14/2023) Immunizations Name Administration Dates Next Due COVID-19 [...] Telephone Encounter - Jasbir Cason DO - 12/14/2023 4:49 PM EDT I called over and talked to Julio. He says she is doing well. She has some trouble getting in and out of the shower. His dad got hospice. We discussed stipulations for hospice. Actually doing well though. Would not be able to get hospice because of this. * Telephone Encounter - Daria Cronin OSA - 12/10/2023 1:39 PM EDT Has the patient been seen for this problem? (Y/N)?: yes If No, an appt needs to be scheduled before a referral will be placed (exception: proceed with referral request if referral request is for a yearly routine appointment with speciality) Patient Name: Kathia Burnett Patient Primary care provider: Jasbir Cason, DO Does this need to be an insurance referral (Y/N)?: yes If Yes, does the insurance referral need to be placed into the [employer] system? Name of preferred specialist: dr hamilton Type of specialist: home health or hospice Location of specialist: [facility] Specialist's Phone #: Specialist's Fax #: Reason for visit: help with day to day care Date of visit: waiting for referral ,please call patients son Julio at [phone] documented in this encounter Plan of Treatment Upcoming Encounters Date Type Department Care Team (Late st Contact Info) Description 03/29/2024 1:00 PM EST Office Visit Family Practice [facility] [place] [address] [facility] [place] [address] Jasbir Cason DO 200 [facility] [place] [address] Health Maintenance Due Date Last Done Comments [...] Additional history exists CKD PHOS USE SMARTSET 35627 11/24/202311/07, 12/16/2021, 05/30/2021, Additional history exists HbA1c 11/24/2023 11/23/2022, 08/01/2022, 10/31/2020, Additional history exists Influenza Vaccine (FLU shot) (#1) 2024 04/03/2020, 04/03/2020, 03/06/2019, Additional history exists Albumin/Creatinine Ratio 08/29/2024 08/30/2023, 11/08 CKD HGB USE SMARTSET 98522 08/29/202408/29, 08/30/2023, 11/23/2022, Additional history exists TSH 08/29/2024 08/30/2023, 08/09, 11/23/2022, Additional history exists VITAMIN D LEVEL ONCE IN A LIFETIME-USE SMARTSET# [id number] Completed 11/23/2019, 11/16/2019, 07/17/2019, Additional history exists [...] 7:58 AM 10/17/2013 9:23 PM This order reflects the patients wishes and were consensually agreed upon. * Full Code Date Activated Date Inactivated Comments 03/17/2010 7:37 PM 03/18/2010 2:28 PM This order r eflects the patients wishes and were consensually agreed upon. Care Teams Supply Chain Buyer Relationship Specialty Start Date End Date Jasbir Cason DO [address] [place] [address] PCP - General Family Medicine 11/21/20 documented as of this encounter
--- OUTSIDE RECORDS SUMMARY | 2024-03-21 07:30 | External Medical Summary | Summary of Care ---
Author Name Unknown Organization [facility] Address [address] [facility] [place] [address] Phone [phone] Care Team Providers Care Spar Machine Operator Helper Name Role Phone Jasbir Cason DO Primary Care Provider [phone] Reason for Referral * Evaluate & Treat - Unlimited Visits (Within 30 days (routine)) - Authorized Specialty Diagnoses / Procedures Referred By Hector farah Referred To Contact Physical Therapy / Physical Medicine And Rehab Diagnoses Ambulatory dysfunction Upper extremity weakness Franca Gtz DO [address] [place] [address] Referral ID Status Reason Start Date Expiration Date Visits Requested Visits Authorized [id number] Authorized Specialty Services Required 10/20/2023 999 999 Question Answer Referral Priority Within 30 days (routine) Where should this appointment be scheduled? Addi Comments Pt requests mobility evaluation for switching from plain wheelchair to hoverround/ electric driven wheelchair due to upper extremity weakness Reason for Visit * Reason Onset Date Comments Advice 10/11/2023 Appointment 10/11/2023 Encounter Details Date Type Department Care Team (Late st Contact Info) Description 10/11/2023 Telephone Family Practice [facility] [address] [place] [address] [address] Jasbir Cason DO [address] [place] [address] Advice; Appointment Allergies Active Allergy Reactions Criticality Noted Date [...] 07/27/2013 03/02/2014 Overview: 3 mm 07/21 MRI PAPER MACHINE BACKTENDER Artery stenosis 07/27/2013 02/09/2017 Overview: M1 segment, mod-severe Nocturnal hypoxemia 06/09/2012 02/11/20 21 Genetic Sleep Disorder [facility] Other*[id number] 01/05/2012 12/05/2015 Follow-up examination, follo wing other [...] Influenza, Split, I IV3, With Preserve, Inj 01/15/2015,03/02/2014,02/23/2013,090 08/2011,01/27/2011,02/06/2010,01/11/20 09,02/20/2008,02/07/2007,03/03/2006,1 05/19/2004,03/09/2003,03/07/2002,04/15,04/08/2000 04/13/2001 Seasonal Influenza, Trivalen t, [...] encounter Miscellaneous Notes * Telephone Encounter - Silvia Purvis OSA - 12/08/2023 2:29 PM EDT Left a voicemail for patient about the PT referral to see where would like to go if they agree to this to get a better wheelchair. * Telephone Encounter - Jasbir Cason DO [...] after I said I was calling from [facility]. If they call back, please address [...] mobility evaluation?: Patient Phone number of requestor: [phone] Diagnosis/reason for the mobility evaluation request: Patient [...] Description 03/29/2024 1:00 PM EST Office Visit [place] [address] [place] [address] Jasbir Cason DO [address] [facility] [place] [address] Scheduled Referrals Name Type Priority Associated Diagnoses [...] Additional history exists CKD PHOS USE SMARTSET 99604 11/24/202311/07, 12/16/2021, 05/30/2021, Additional history exists HbA1c 11/24/2023 11/23/2022, 0801/2022, 10/31/2020, Additional history exists Influenza Vaccine (FLU shot) (#1) 2024 04/03/2020, 04/03/2020, 03/06/2019, Additional history exists Albumin/Creatinine Ratio 08/29/2024 08/30/2023, 11/08 CKD HGB USE SMARTSET 91824 08/29/202408/29, 08/30/2023, 11/23/2022, Additional history exists TSH 08/29/2024 08/30/2023, 08/09, 11/23/2022, Additional history exists VITAMIN D LEVEL ONCE IN A LIFETIME-USE SMARTSET# [id number] Completed 11/23/2019, 11/16/2019, 07/17/2019, Additional history exists [...] and were consensually agreed upon. Care Teams Spar Machine Operator Helper Relationship Specialty Start Date End Date Jasbir Cason DO [address] [place] [address] PCP - General Family Medicine 11/21/20 documented as of this encounter
--- OUTSIDE RECORDS SUMMARY | 2024-03-21 07:31 | External Medical Summary | Summary of Care ---
Author Name Unknown Organization [facility] Address [address] [facility] [place] [address] Phone [phone] Care Team Providers Care Inside Sales Specialist Name Role Phone Jasbir Cason DO Primary Care Provider [phone] Reason for Visit * Reason Onset Date Comments Fax 09/28/2023 I made the perso n aware of the message and she stated OK then good by. Encounter Details Date Type Department Care Team (Late st Contact Info) Description 09/28/2023 Telephone Family Practice [facility] [place] [address] [facility] [place] [address] Jasbir Cason DO [address] [facility] [place] [address] Fax (I made the person aware of the messag... Allergies Active Allergy Reactions Criticality Noted Date Comments Cefazolin Low 02/08/2021 Other reaction(s): rash on abdomen Rosuvastatin Calcium Medium 01/12/2012 Muscle pain Atorvastatin Calcium Other (Please comment) Medium 01/17/2008 Elevated CK Simvastatin Muscle pain 03/28/2009 documented as of this encounter (statuses as of 10/19/2023) Medications Medication Sig Dispensed Refills Start Date [...] not cut, crush, or chew. 180 Tablet 08/30/2023 Active Losartan Potassium 25 MG Oral Tablet (Cozaar)Indications :Hypertensive heart disease without heart failure,Essential hypertension with goal blood pressure less than 140/90 Take 1 Tablet by mouth in the morning. 90 Tablet 08/30/2023 Active Levothyroxine Sodium 112 MCG Oral Tablet (Levoxyl) Take 1 Tablet by mouth in the morning. (at least 30 min prior to breakfast or other meds). 90 Tablet 3 08/30/2023 Active Atenolol 25 MG Oral Tablet (Tenormin)Indicatio ns:Hypertensive heart disease without heart failure Take 1 Tablet by mouth in the morning. 90 Tablet 08/30/2023 Active Ibuprofen 600 MG Oral Tablet (Motrin) Take 1 Tablet by mouth at bedtime as needed (pain). with food for pain 30 Tablet 08/30/2023 Active Diclofenac Sodium 1 % External Gel (Voltaren) Apply topically to affected area 2 times a day as needed for Pain, Moderate. Apply to L knee 100 g 08/30/2023 Active documented as of this encounter (statuses as of 10/19/2023) Active Problems Problem Noted Date Diagnosed Date [...] as of this encounter (statuses as of 10/19/2023) Resolved Problems Problem Noted Date Diagnosed Date [...] 07/27/2013 03/02/2014 Overview: 3 mm 07/21 MRI FOSTER CARE SOCIAL WORKER Artery stenosis 07/27/2013 02/09/2017 Overview: M1 segment, mod-severe Nocturnal hypoxemia 06/09/2012 02/11/20 21 Genetic Sleep Disorder [facility] Other*[id number] 01/05/2012 12/05/2015 Follow-up examination, follo wing other [...] as of this encounter (statuses as of 10/19/2023) Immunizations Name Administration Dates Next Due COVID-19 mRNA, LNP-s, No Pre serve, 2-Dose Series (PlayerTakesAll) 08/05/2020,07/09/2020 PPD 08/07/2009 Pneumococcal Conjugate Vacc, 13 [...] in the Last Year Never true 05/17/2019 Sex and Gender Information Value Date Recorded [...] encounter Miscellaneous Notes * Telephone Encounter - Elisa Rose OSA - 10/19/2023 2:52 PM EDT Ms. Inman called back to check status of request. She was advised that no information would be provided. She stated that pt requested supplies and that they would reach out to pt directly. * Telephone Encounter - Dimitri Granados OSA - 09/30/2023 12:41 PM EDT Evelyn called from [employer] and wanted to check up on the medical request referral that was faxed to our office. I read the message to her and she stated ok then good bye. * Telephone Encounter - Arlin Mendez LPN - 09/28/2023 4:19 PM EDT I spoke with patient regarding below. She did not request these supplies. I attempted to call Henny at the # provided- there was no answer and no answering machine. If/when Henny calls back. Please let her know that the patient did not request supplies from them and we will not be providing them with any information. * Telephone Encounter - Alberta Zelaya OSA - 09/28/2023 2:30 PM EDT Caller: Henny from [facility] Callback: [phone] Reason for Call: To check the status of a fax formedical records for DME Pain supplies that was suppose to be sent for the patient. Henny stated it was faxed 09/15/2023 Please Advise documented in this encounter Plan of Treatment Upcoming Encounters Date Type Department Care Team (Late st Contact Info) Description 03/29/2024 1:00 PM EST Office Visit Family Practice [facility] [place] [address] [facility] [place] [address] Jasbir Cason DO [address] [facility] [place] [address] Health Maintenance Due Date Last Done Comments DTaP,Tdap,and Td Vaccines (1 - Tdap) 07/15/2000 07/14/2000 Zoster Vaccines (2 of 3) 02/18/2012 12/24/2011 DXA Scan 02/24/2018 02/25/2016, 07/2013, 12/02/2011, Additional history exists *BISPHONATE OR OTHER ACCEPTABLE MEDICATION NEEDED FOR OSTEOPOROSIS (REFER TO SMARTSET #1146) 05/20/2019 Depression Monitoring 11/15/2020 11/16/2019 COVID-19 Vaccine ( season) 2023 05/07/2021, 05/07/2021, 08/05/2020, Additional history exists CKD PHOS USE SMARTSET 37468 11/24/202311/07, 12/16/2021, 05/30/2021, Additional history exists HbA1c 11/24/2023 11/23/2022, 08/0 01/2022, 10/31/2020, Additional history exists Influenza Vaccine (FLU shot) (Season Ended) 2024 04/03/2020, 04/03/2020, 03/06/2019, Additional history exists Albumin/Creatinine Ratio 08/29/2024 08/30/2023, 11/08 CKD HGB USE SMARTSET 79468 08/29/202408/29, 08/30/2023, 11/23/2022, Additional history exists TSH 08/29/2024 08/30/2023, 08/09, 11/23/2022, Additional history exists VITAMIN D LEVEL ONCE IN A LIFETIME-USE SMARTSET# 73081 Completed 11/23/2019, 11/16/2019, 07/17/2019, Additional history exists Pneumococcal Vaccine: 65+ Years Completed 07/21/2023, 04/03/2020, 01/17/2016, Additional history exists GARDASIL-HPV IMMUNIZATION SERIES Aged Out No longer eligible based on patient's age to complete this topic Hepatitis B Aged Out No longer eligi ble based on patient's age to complete this [...] and were consensually agreed upon. Care Teams Inside Sales Specialist Relationship Specialty Start Date End Date Jasbir Cason DO [address] [place] [address] PCP - General Family Medicine 11/21/20 documented as of this encounter
--- OUTSIDE RECORDS SUMMARY | 2024-03-21 07:31 | External Medical Summary | Summary of Care ---
Author Name Unknown Organization [facility] Address [address] [facility] [place] [address] Phone [phone] Care Team Providers Care Talent Sourcing Specialist Name Role Phone Jasbir Cason DO Primary Care Provider [phone] Reason for Visit * Reason Onset Date Comments FYI 08/16/2023 Hospital Dischar ge follow up/Cancellation Encounter Details Date Type Department Care Team (Late st Contact Info) Description 08/16/[address] [facility] [address] [place] [address] Jasbir Cason DO [address] [place] [address] FYI (Hospital Discharge follow up/Cancella... Allergies Active Allergy Reactions Criticality Noted Date Comments Cefazolin Low 02/08/2021 Other reaction(s): rash on abdomen Rosuvastatin Calcium Medium 01/12/2012 Muscle pain Atorvastatin Calcium Other (Please comment) Medium 01/17/2008 Elevated CK Simvastatin Muscle pain 03/28/2009 documented as of this encounter (statuses as of 11/15/2023) Medications Medication Sig Dispensed Refills Start Date End Date Status Ferrous Sulfate 325 (65 Fe) MG Oral Tablet (Feosol)Indication s:Iron deficiency anemia due to chronic blood loss Take 1 Tablet by mouth in the morning and 1 Tablet before bedtime. 180 Tablet 1 12/04/2022 Active Additional Information Patient not taking.Reported on 08/30/2023 documented as of this encounter (statuses as of 11/15/2023) Active Problems Problem Noted Date Diagnosed Date [...] as of this encounter (statuses as of 11/15/2023) Resolved Problems Problem Noted Date Diagnosed Date Resolved Date Wound infection complicating hardware, initial encounter 02/10/2021 10/28/2022 Overview: Staphylococcus aureus (S) Acute kidney injury 02/10/2021 05/08/20 21 Overview: In the setting of Staphylococcus aureus [...] 07/27/2013 03/02/2014 Overview: 3 mm 07/21 MRI SEALING MACHINE OPERATOR Artery stenosis 07/27/2013 02/09/2017 Overview: M1 segment, mod-severe Nocturnal hypoxemia 06/09/2012 02/11/20 21 Genetic Sleep Disorder Resea [facility] Other*[id number] 01/05/2012 12/05/2015 Follow-up examination, fidencio mendez other surgery 03/06/2010 01/06/2017 Abdominal pain, generalized [...] as of this encounter (statuses as of 11/15/2023) Immunizations Name Administration Dates Next Due COVID-19 [...] encounter Miscellaneous Notes * Telephone Encounter - Romy Torres OSA - 08/16/2023 3:43 PM EDT Patient's son, Julio, called to cancel patients hospital discharge appointment for 08/16, as he was not aware of the appointment. He will call back to reschedule. documented in this encounter Plan of Treatment Upcoming Encounters Date Type Department Care Team (Late st Contact Info) Description 03/29/2024 1:00 PM EST Office Visit [facility] [address] [place] [address] Jasbir Cason, [address] [facility] [place] [address] Health Maintenance Due Date Last Done Comments DTaP,Tdap,and Td Vaccines (1 - Tdap) 07/15/2000 07/14/2000 Zoster Vaccines (2 of 3) 02/18/2012 12/24/2011 DXA Scan 02/24/2018 02/25/2016, 0907/2013, 12/02/2011, Additional history exists *BISPHONATE OR OTHER ACCEPTABLE MEDICATION NEEDED FOR OSTEOPOROSIS (REFER TO SMARTSET #1146) 05/20/2019 Depression Monitoring 11/15/2020 11/16/2019 COVID-19 Vaccine ( season) 2023 05/07/2021, 05/07/2021, 08/05/2020, Additional history exists CKD PHOS USE SMARTSET 51801 11/24/202311/07, 12/16/2021, 05/30/2021, Additional history exists HbA1c 11/24/2023 11/23/2022, 0801/2022, 10/31/2020, Additional history exists Influenza Vaccine (FLU shot) (#1) 2024 04/03/2020, 04/03/2020, 03/06/2019, Additional history exists Albumin/Creatinine Ratio 08/29/2024 08/30/2023, 11/08 CKD HGB USE SMARTSET 54550 08/29/202408/29, 08/30/2023, 11/23/2022, Additional history exists TSH 08/29/2024 08/30/2023, 08/09, 11/23/2022, Additional history exists VITAMIN D LEVEL ONCE IN A LIFETIME-USE SMARTSET# 26957 Completed 11/23/2019, 11/16/2019, 07/17/2019, Additional history exists [...] and were consensually agreed upon. Care Teams Talent Sourcing Specialist Relationship Specialty Start Date End Date Jasbir Cason DO [address] [place] [address] PCP - General Family Medicine 11/21/20 documented as of this encounter
--- OUTSIDE RECORDS SUMMARY | 2024-03-21 07:31 | External Medical Summary | Summary of Care ---
Author Name Unknown Organization [facility] Address [address] [facility] [place] [address] Phone [phone] Care Team Providers Care Operations Clerk Name Role Phone Jasbir Cason DO Primary Care Provider [phone] Reason for Referral * Evaluate & Treat - Unlimited Visits (Within 30 days (routine)) - Authorized Specialty Diagnoses / Procedures Referred By Hector farah Referred To Contact Physical Therapy / Physical Medicine And Rehab Diagnoses Ambulatory dysfunction Upper extremity weakness Franca Gtz DO [address] [facility] [place] [address] Referral ID Status Reason Start Date Expiration Date Visits Requested Visits Authorized [id number] Authorized Specialty Services Required 10/20/2023 999 999 [...] State Dahlia Bueno [address] [place] [address] Jasbir Cason DO 200 [facility] [place] [address] Advice Allergies Active Allergy Reactions Criticality Noted Date Comments Cefazolin Low 02/08/2021 Other reaction(s): rash on abdomen Rosuvastatin Calcium Medium 01/12/2012 Muscle pain Atorvastatin Calcium Other (Please comment) Medium 01/17/2008 Elevated CK Simvastatin Muscle pain 03/28/2009 documented as of this encounter (statuses as of 10/22/2023) Medications Medication Sig Dispensed Refills Start Date [...] as of this encounter (statuses as of 10/22/2023) Active Problems Problem Noted Date Diagnosed Date [...] - 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 03/01/2017 Hiatal hernia 03/01/2017 Hypertensive heart [...] as of this encounter (statuses as of 10/22/2023) Resolved Problems Problem Noted Date Diagnosed Date [...] 07/27/2013 03/02/2014 Overview: 3 mm 07/21 MRI PLASTER PATTERNMAKER Artery stenosis 07/27/2013 02/09/2017 Overview: M1 segment, mod-severe Nocturnal hypoxemia 06/09/2012 02/11/20 21 Genetic Sleep Disorder [facility] Other*[id number] 01/05/2012 12/05/2015 Follow-up examination, follo wing other [...] as of this encounter (statuses as of 10/22/2023) Immunizations Name Administration Dates Next Due COVID-19 [...] I IV3, With Preserve, Inj 01/15/2015,03/02/2014,02/23/2013,090 08/2011,01/27/2011,02/06/2010,01/11/20 09,02/20/2008,02/07/2007,03/03/2006 Seasonal Influenza, Trivalen t, Adjuvanted, 65+ [...] encounter Miscellaneous Notes * Telephone Encounter - Grecia Galeana LPN [...] mobility evaluation?: Patient Phone number of requestor: [phone] Diagnosis/reason for the mobility evaluation request: Patient [...] 1:00 PM EST Office Visit Family Practice [facility] [address] [place] [address] Jasbir Cason DO [address] [facility] [place] [address] Scheduled Referrals Name Type Priority Associated Diagnoses [...] Additional history exists CKD PHOS USE SMARTSET 77960 11/24/202311/07, 12/16/2021, 05/30/2021, Additional history exists HbA1c 11/24/2023 11/23/2022, 08/0 01/2022, 10/31/2020, Additional history exists Influenza Vaccine (FLU shot) (Season Ended) 2024 04/03/2020, 04/03/2020, 03/06/2019, Additional history exists Albumin/Creatinine Ratio 08/29/2024 08/30/2023, 11/08 CKD HGB USE SMARTSET 17898 08/29/202408/29, 08/30/2023, 11/23/2022, Additional history exists TSH 08/29/2024 08/30/2023, 08/09, 11/23/2022, Additional history exists VITAMIN D LEVEL ONCE IN A LIFETIME-USE SMARTSET# 86002 Completed 11/23/2019, 11/16/2019, 07/17/2019, Additional history exists [...] and were consensually agreed upon. Care Teams Operations Clerk Relationship Specialty Start Date End Date Jasbir Cason DO [address] [place] [address] PCP - General Family Medicine 11/21/20 documented as of this encounter
--- OUTSIDE RECORDS SUMMARY | 2024-03-21 07:31 | External Medical Summary | Summary of Care ---
Author Name Unknown Organization [facility] Address [address] [facility] [place] [address] Phone [phone] Care Team Providers Care Fish House Worker Name Role Phone Jasbir Cason DO Primary Care Provider [phone] Reason for Visit * Reason Onset Date Comments Fax 09/28/2023 I made the perso n aware of the message and she stated OK then good by. Encounter Details Date Type Department Care Team (Late st Contact Info) Description 09/28/2023 Telephone Family Practice [facility] [place] [address] [facility] [place] [address] Jasbir Cason DO 200 [facility] [place] [address] Fax (I made the person aware of the messag... Allergies Active Allergy Reactions Criticality Noted Date Comments Cefazolin Low 02/08/2021 Other reaction(s): rash on abdomen Rosuvastatin Calcium Medium 01/12/2012 Muscle pain Atorvastatin Calcium Other (Please comment) Medium 01/17/2008 Elevated CK Simvastatin Muscle pain 03/28/2009 documented as of this encounter (statuses as of 09/30/2023) Medications Medication Sig Dispensed Refills Start Date [...] as of this encounter (statuses as of 09/30/2023) Active Problems Problem Noted Date Diagnosed Date [...] as of this encounter (statuses as of 09/30/2023) Resolved Problems Problem Noted Date Diagnosed Date [...] 07/27/2013 03/02/2014 Overview: 3 mm 07/21 MRI ONBOARDING SPECIALIST Artery stenosis 07/27/2013 02/09/2017 Overview: M1 segment, mod-severe Nocturnal hypoxemia 06/09/2012 02/11/20 21 Genetic Sleep Disorder Resea [facility] Other*[id number] 01/05/2012 12/05/2015 Follow-up examination, follo wing other [...] as of this encounter (statuses as of 09/30/2023) Immunizations Name Administration Dates Next Due COVID-19 mRNA, LNP-s, No Pre serve, 2-Dose Series ([employer]) 08/05/2020,07/09/2020 PPD 08/07/2009 Pneumococcal Conjugate Vacc, 13 [...] encounter Miscellaneous Notes * Telephone Encounter - Dimitri Granados OSA - 09/30/2023 12:41 PM EDT Evelyn called from [employer] and wanted to check up on the [...] 09/28/2023 2:30 PM EDT Caller: Henny from [facility] Callback: [phone] Reason for Call: To check the status of a fax formedical records for DME Pain supplies that was suppose to be sent for the patient. Henny stated it was faxed 09/15/2023 Please Advise documented in this encounter Plan of Treatment Upcoming Encounters Date Type Department Care Team (Late st Contact Info) Description 03/29/2024 1:00 PM EST Office Visit [address] [place] [address] Jasbir Cason DO [address] [place] [address] Health Maintenance Due Date Last Done Comments DTaP,Tdap,and Td Vaccines (1 - Tdap) 07/15/2000 07/14/2000 Zoster Vaccines (2 of 3) 02/18/2012 12/24/2011 DXA Scan 02/24/2018 02/25/2016, 07/2013, 12/02/2011, Additional history exists *BISPHONATE OR OTHER ACCEPTABLE MEDICATION NEEDED FOR OSTEOPOROSIS (REFER TO SMARTSET #1146) 05/20/2019 COVID-19 Vaccine ( season) 2023 05/07/2021, 05/07/2021, 08/05/2020, Additional history exists CKD PHOS USE SMARTSET 71112 11/24/202311/07, 12/16/2021, 05/30/2021, Additional history exists HbA1c 11/24/2023 11/23/2022, 08/0 01/2022, 10/31/2020, Additional history exists Influenza Vaccine (FLU shot) (Season Ended) 2024 04/03/2020, 04/03/2020, 03/06/2019, Additional history exists Albumin/Creatinine Ratio 08/29/2024 08/30/2023, 11/08 CKD HGB USE SMARTSET 67568 08/29/202408/29, 08/30/2023, 11/23/2022, Additional history exists TSH 08/29/2024 08/30/2023, 08/09, 11/23/2022, Additional history exists VITAMIN D LEVEL ONCE IN A LIFETIME-USE SMARTSET# 17034 Completed 11/23/2019, 11/16/2019, 07/17/2019, Additional history exists [...] and were consensually agreed upon. Care Teams Fish House Worker Relationship Specialty Start Date End Date Jasbir Cason DO [address] [place] [address] PCP - General Family Medicine 11/21/20 documented as of this encounter
--- OUTSIDE RECORDS SUMMARY | 2024-03-21 07:31 | External Medical Summary | Summary of Care ---
Author Name Unknown Organization [facility] Address [address] [facility] [place] [address] Phone [phone] Care Team Providers Care Heating Engineer Name Role Phone Jasbir Cason DO Primary Care Provider [phone] Reason for Visit * Reason Onset Date Comments Fax 08/31/2023 Encounter Details Date Type Department Care Team (Late st Contact Info) Description 08/31/2023 Telephone Family Practice [facility] 200 [facility] [place] [address] Jasbir Cason DO 200 [facility] [place] [address] Fax Allergies Active Allergy Reactions Criticality Noted Date Comments Cefazolin Low 02/08/2021 Other reaction(s): rash on abdomen Rosuvastatin Calcium Medium 01/12/2012 Muscle pain Atorvastatin Calcium Other (Please comment) Medium 01/17/2008 Elevated CK Simvastatin Muscle pain 03/28/2009 documented as of this encounter (statuses as of 10/08/2023) Medications Medication Sig Dispensed Refills Start Date [...] as of this encounter (statuses as of 10/08/2023) Active Problems Problem Noted Date Diagnosed Date [...] as of this encounter (statuses as of 10/08/2023) Resolved Problems Problem Noted Date Diagnosed Date [...] 07/27/2013 03/02/2014 Overview: 3 mm 07/21 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 APPAREL 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 Artery stenosis 07/27/2013 02/09/2017 Overview: M1 segment, mod-severe Nocturnal hypoxemia 06/09/2012 02/11/20 21 Genetic Sleep Disorder Resea [facility] Other*[id number] 01/05/2012 12/05/2015 Follow-up examination, follo wing other [...] as of this encounter (statuses as of 10/08/2023) Immunizations Name Administration Dates Next Due COVID-19 mRNA, LNP-s, No Pre serve, 2-Dose Series ([employer]) 08/05/2020,07/09/2020 PPD 08/07/2009 Pneumococcal Conjugate Vacc, 13 Valent (Prevnar) 03/04/2015 Pneumococcal Polysaccharide PPV23 (Pneumovax) 06/24/2011 Season Influenza, Quad, PF, Adjuvanted, 65+ Yrs, IM (FLUAD) 04/03/2020 Seasonal Influenza, PF, 6 M & above, IM , (FluLaval or Fluzone) 04/05/2018,02/09/2017 Seasonal Influenza, Quadriva lent, No Preserve, IM 03/03/2016 03/03/2017 Seasonal Influenza, Split, I IV3, With Preserve, Inj 01/15/2015,03/02/2014,02/23/2013,0908/2011,01/27/2011,02/06/2010,01/11/20 09,02/20/2008,02/07/2007,03/03/2006 Seasonal Influenza, Trivalen t, Adjuvanted, 65+ [...] encounter Miscellaneous Notes * Telephone Encounter - Mery Naik RN - 10/08/2023 12:48 PM EDT Faxed to number below. * Telephone Encounter - Jasbir Cason DO - 09/09/2023 4:39 PM EDT Please fax medication list as requested * Telephone Encounter - Grecia Izaguirre OSA - 09/01/2023 11:42 AM EDT Patient calling in to check on the status of previous message. Patient Called within 48 hour timeframe. Reminded patient of 48 hour turn-around time. * Telephone Encounter - Marielena Rosen OSA - 08/31/2023 2:04 PM EDT [facility] has called in states pt. Saw Dr. Cason yesterday pt. States she was supposed to have new medication, [facility] is requesting a copy of new medication list be sent to fax [phone]. Figueroa states she also called in for the follow up for speech therapy & social service technician consult please advise with a call back. Also would like to know if there is anything they should know please reach out. documented in this encounter Plan of Treatment Upcoming Encounters Date Type Department Care Team (Late st Contact Info) Description 03/29/2024 1:00 PM EST Office Visit Family Practice [facility] [place] [address] [facility] [place] [address] Jasbir Cason DO [address] [facility] [place] [address] Health Maintenance Due Date Last Done Comments DTaP,Tdap,and Td Vaccines (1 - Tdap) 07/15/2000 07/14/2000 Zoster Vaccines (2 of 3) 02/18/2012 12/24/2011 DXA Scan 02/24/2018 02/25/2016, 0907/2013, 12/02/2011, Additional history exists *BISPHONATE OR OTHER ACCEPTABLE MEDICATION NEEDED FOR OSTEOPOROSIS (REFER TO SMARTSET #1146) 05/20/2019 COVID-19 Vaccine ( season) 2023 05/07/2021, 05/07/2021, 08/05/2020, Additional history exists CKD PHOS USE SMARTSET 14831 11/24/202311/07, 12/16/2021, 05/30/2021, Additional history exists HbA1c 11/24/2023 11/23/2022, 080 01/2022, 10/31/2020, Additional history exists Influenza Vaccine (FLU shot) (Season Ended) 2024 04/03/2020, 04/03/2020, 03/06/2019, Additional history exists Albumin/Creatinine Ratio 08/29/2024 08/30/2023, 11/08 CKD HGB USE SMARTSET 92972 08/29/202408/29, 08/30/2023, 11/23/2022, Additional history exists TSH 08/29/2024 08/30/2023, 08/09, 11/23/2022, Additional history exists VITAMIN D LEVEL ONCE IN A LIFETIME-USE SMARTSET# 12844 Completed 11/23/2019, 11/16/2019, 07/17/2019, Additional history exists [...] and were consensually agreed upon. Care Teams Heating Engineer Relationship Specialty Start Date End Date Jasbir Cason DO [address] [place] [address] PCP - General Family Medicine 11/21/20 documented as of this encounter
--- OUTSIDE RECORDS SUMMARY | 2024-03-21 07:31 | External Medical Summary | Summary of Care ---
Author Name Unknown Organization [facility] Address [address] [facility] [place] [address] Phone [phone] Care Team Providers Care Cable Strander Name Role Phone Jasbir Cason DO Primary Care Provider [phone] Reason for Visit * Reason Onset Date Comments Fax 09/28/2023 Encounter Details Date Type Department Care Team (Late st Contact Info) Description 09/28/2023 Telephone Family Practice [facility] 200 [facility] [place] [address] Jasbir Cason DO 200 [facility] [place] [address] Fax Allergies Active Allergy Reactions Criticality Noted Date Comments Cefazolin Low 02/08/2021 Other reaction(s): rash on abdomen Rosuvastatin Calcium Medium 01/12/2012 Muscle pain Atorvastatin Calcium Other (Please comment) Medium 01/17/2008 Elevated CK Simvastatin Muscle pain 03/28/2009 documented as of this encounter (statuses as of 09/28/2023) Medications Medication Sig Dispensed Refills Start Date [...] as of this encounter (statuses as of 09/28/2023) Active Problems Problem Noted Date Diagnosed Date [...] as of this encounter (statuses as of 09/28/2023) Resolved Problems Problem Noted Date Diagnosed Date [...] 07/27/2013 03/02/2014 Overview: 3 mm 07/21 MRI JEWEL BEARING TURNER Artery stenosis 07/27/2013 02/09/2017 Overview: M1 segment, mod-severe Nocturnal hypoxemia 06/09/2012 02/11/20 21 Genetic Sleep Disorder Resea [facility] Other*[id number] 01/05/2012 12/05/2015 Follow-up examination, follo wing other [...] as of this encounter (statuses as of 09/28/2023) Immunizations Name Administration Dates Next Due COVID-19 mRNA, LNP-s, No Pre serve, 2-Dose Series ([employer]) 08/05/2020,07/09/2020 PPD 08/07/2009 Pneumococcal Conjugate Vacc, 13 [...] encounter Miscellaneous Notes * Telephone Encounter - Arlin Mendez LPN [...] 09/28/2023 2:30 PM EDT Caller: Henny from [facility] Callback: [phone] Reason for Call: To check the status of a fax formedical records for DME Pain supplies that was suppose to be sent for the patient. Henny stated it was faxed 09/15/2023 Please Advise documented in this encounter Plan of Treatment Upcoming Encounters Date Type Department Care Team (Late st Contact Info) Description 03/29/2024 1:00 PM EST Office Visit Family Practice [facility] 200 [facility] [place] [address] Jasbir Cason, 200 [facility] [place] [address] Health Maintenance Due Date Last Done Comments DTaP,Tdap,and Td Vaccines (1 - Tdap) 07/15/2000 07/14/2000 Zoster Vaccines (2 of 3) 02/18/2012 12/24/2011 DXA Scan 02/24/2018 02/25/2016, 07/2013, 12/02/2011, Additional history exists *BISPHONATE OR OTHER ACCEPTABLE MEDICATION NEEDED FOR OSTEOPOROSIS (REFER TO SMARTSET #1146) 05/20/2019 COVID-19 Vaccine ( season) 2023 05/07/2021, 05/07/2021, 08/05/2020, Additional history exists CKD PHOS USE SMARTSET 20882 11/24/202311/07, 12/16/2021, 05/30/2021, Additional history exists HbA1c 11/24/2023 11/23/2022, 08/0 01/2022, 10/31/2020, Additional history exists Influenza Vaccine (FLU shot) (Season Ended) 2024 04/03/2020, 04/03/2020, 03/06/2019, Additional history exists Albumin/Creatinine Ratio 08/29/2024 08/30/2023, 11/08 CKD HGB USE SMARTSET 16572 08/29/202408/29, 08/30/2023, 11/23/2022, Additional history exists TSH 08/29/2024 08/30/2023, 08/09, 11/23/2022, Additional history exists VITAMIN D LEVEL ONCE IN A LIFETIME-USE SMARTSET# 78680 Completed 11/23/2019, 11/16/2019, 07/17/2019, Additional history exists [...] and were consensually agreed upon. Care Teams Cable Strander Relationship Specialty Start Date End Date Jasbir Cason DO [address] [place] [address] PCP - General Family Medicine 11/21/20 documented as of this encounter
--- OUTSIDE RECORDS SUMMARY | 2024-03-21 07:31 | External Medical Summary | Summary of Care ---
Author Name Unknown Organization [facility] Address [address] [facility] [place] [address] Phone [phone] Care Team Providers Care Pulpwood Cutter Name Role Phone Jasbir Cason DO Primary Care Provider [phone] Reason for Visit * Reason Onset Date Comments Forms Request 09/02/2023 Encounter Details Date Type Department Care Team (Late st Contact Info) Description 09/02/2023 Telephone Family Practice [facility] 200 [facility] [place] [address] Jasbir Cason DO 200 [facility] [place] [address] Forms Request Allergies Active Allergy Reactions Criticality Noted Date [...] 07/27/2013 03/02/2014 Overview: 3 mm 07/21 MRI SLEEP MANAGER Artery stenosis 07/27/2013 02/09/2017 Overview: M1 segment, mod-severe Nocturnal hypoxemia 06/09/2012 02/11/20 21 Genetic Sleep Disorder Resea [facility] Other*[id number] 01/05/2012 12/05/2015 Follow-up examination, follo wing other [...] mRNA, LNP-s, No Pre serve, 2-Dose Series ([employer]) 08/05/2020,07/09/2020 PPD 08/07/2009 Pneumococcal Conjugate Vacc, 13 Valent (Prevnar) 03/04/2015 Pneumococcal Polysaccharide PPV23 (Pneumovax) 06/24/2011,03/09/2003 Season Influenza, Quad, PF, Adjuvanted, 65+ Yrs, IM (FLUAD) 04/03/2020 Seasonal Influenza, PF, 6 M & above, IM , (FluLaval or Fluzone) 04/05/2018,02/09/2017 Seasonal Influenza, Quadriva lent, No Preserve, IM 03/03/2016 03/03/2017 Seasonal Influenza, Split, I IV3, With Preserve, Inj 01/15/2015,03/02/2014,02/23/2013,09/0 08/2011,01/27/2011,02/06/2010,01/11/20 09,02/20/2008,02/07/2007,03/03/2006,1 05/19/2004,03/09/2003,03/07/2002,04/15,04/08/2000 04/13/2001 Seasonal Influenza, Trivalen [...] Encounter - Arlin Mendez LPN - 09/28/2023 4:33 PM EDT Spoke with patient at length regarding this request. She thought she was getting an order for a motorized wheelchair. I told her I'd see if Dr. Cason would change the order for her but also stated there's a good chance the full cost of the chair would not be covered by insurance (she had mentioned earlier in our conversation about financial concerns) but we could order it and see what it would be. She declined and states she will just use the wheelchair that she has. I told her if she changes her mind to call our office. * Telephone Encounter - Mariajose Galvan OSA - 09/09/2023 4:58 PM EDT Patient calling for an update on her wheelchair order Patient was just seen in the office by Dr. Cason 08/29, patient has mobility issues and issues with transportation and stated it would be almost impossible to get back in for another appointment Please f/u with patient TY * Telephone Encounter - Candy Krishna LPN - 09/09/2023 2:13 PM EDT Called [employer] To find out if they have the information that they need or are they still awaiting this info.- Theyhave not received this info. Please call patient to get appt on the books soon. * Telephone Encounter - Betty Christine OSA - 09/02/2023 9:34 AM EDT Milton calling from [facility] medical theres a request for a wheelchair order and has questions regardingthis request order following questions needs to be answered. Does pt have a cast that prevents to bend knee Standard or lightweight wheelchair This note has to be in the prescription No notes indicating self prepel Only covers for inside home Old wheelchair is it broken without repair and how old is it Why elevated leg rest Insurance will addendum note This Needs a new visit no addendum cannot edit notes Patient needs to be seen again to proceed with this request Please call Milton with answers to this at [phone] documented in this encounter Plan of Treatment Upcoming Encounters Date Type Department Care Team (Late st Contact Info) Description 03/29/2024 1:00 PM EST Office Visit Family Practice [facility] 200 [facility] [place] [address] Jasbir Cason, [address] [facility] [place] [address] Health Maintenance Due Date Last Done Comments DTaP,Tdap,and Td Vaccines (1 - Tdap) 07/15/2000 07/14/2000 Zoster Vaccines (2 of 3) 02/18/2012 12/24/2011 DXA Scan 02/24/2018 02/25/2016, 07/2013, 12/02/2011, Additional history exists *BISPHONATE OR OTHER ACCEPTABLE MEDICATION NEEDED FOR OSTEOPOROSIS (REFER TO SMARTSET #1146) 05/20/2019 COVID-19 Vaccine ( season) 2023 05/07/2021, 05/07/2021, 08/05/2020, Additional history exists CKD PHOS USE SMARTSET 07137 11/24/202311/07, 12/16/2021, 05/30/2021, Additional history exists HbA1c 11/24/2023 11/23/2022, 01/2022, 10/31/2020, Additional history exists Influenza Vaccine (FLU shot) (Season Ended) 2024 04/03/2020, 04/03/2020, 03/06/2019, Additional history exists Albumin/Creatinine Ratio 08/29/2024 08/30/2023, 11/08 CKD HGB USE SMARTSET 02763 08/29/202408/29, 08/30/2023, 11/23/2022, Additional history exists TSH 08/29/2024 08/30/2023, 08/09, 11/23/2022, Additional history exists VITAMIN D LEVEL ONCE IN A LIFETIME-USE SMARTSET# 76635 Completed 11/23/2019, 11/16/2019, 07/17/2019, Additional history exists [...] and were consensually agreed upon. Care Teams Pulpwood Cutter Relationship Specialty Start Date End Date Jasbir Cason DO [address] [place] [address] PCP - General Family Medicine 11/21/20 documented as of this encounter
--- OUTSIDE RECORDS SUMMARY | 2024-03-21 07:31 | External Medical Summary | Summary of Care ---
Author Name Unknown Organization [facility] Address [address] [facility] [place] [address] Phone [phone] Care Team Providers Care Pharmacy Affairs Assistant Name Role Phone Jasbir Cason DO Primary Care Provider [phone] Reason for Visit * Reason Onset Date Comments Advice 09/27/2023 Encounter Details Date Type Department Care Team (Late st Contact Info) Description 09/27/2023 Telephone Family Practice [facility] [place] 200 [facility] [place] [address] Jasbir Cason DO 200 [facility] [place] [address] Advice Allergies Active Allergy Reactions Criticality Noted [...] 07/27/2013 03/02/2014 Overview: 3 mm 07/21 MRI JELLY MAKER Artery stenosis 07/27/2013 02/09/2017 Overview: M1 segment, mod-severe Nocturnal hypoxemia 06/09/2012 02/11/20 21 Genetic Sleep Disorder Resea [facility] Other*[id number] 01/05/2012 12/05/2015 Follow-up examination, follo wing other [...] Encounter - Arlin Mendez LPN - 09/28/2023 4:20 PM EDT Patient has not requested any DME supplies, she doesn't know who or what [employer] is. No information is to be provided to them! * Telephone Encounter - Ervin Mckeon OSA - 09/27/2023 2:55 PM EDT Please fax over patient's latest office notes from the past 6 months to [facility] [employer]. Their fax numberis [phone]. Thank you. documented in this encounter Plan of Treatment Upcoming Encounters Date Type Department Care Team (Late st Contact Info) Description 03/29/2024 1:00 PM EST Office Visit Family Practice [facility] 200 [facility] [place] [address] Jasbir Cason, DO [address] [facility] [place] [address] Health Maintenance Due Date Last Done Comments DTaP,Tdap,and Td Vaccines (1 - Tdap) 07/15/2000 07/14/2000 Zoster Vaccines (2 of 3) 02/18/2012 12/24/2011 DXA Scan 02/24/2018 02/25/2016, 07/2013, 12/02/2011, Additional history exists *BISPHONATE OR OTHER ACCEPTABLE MEDICATION NEEDED FOR OSTEOPOROSIS (REFER TO SMARTSET #1146) 05/20/2019 COVID-19 Vaccine ( season) 2023 05/07/2021, 05/07/2021, 08/05/2020, Additional history exists CKD PHOS USE SMARTSET 05221 11/24/202311/07, 12/16/2021, 05/30/2021, Additional history exists HbA1c 11/24/2023 11/23/2022, 08/0 01/2022, 10/31/2020, Additional history exists Influenza Vaccine (FLU shot) (Season Ended) 2024 04/03/2020, 04/03/2020, 03/06/2019, Additional history exists Albumin/Creatinine Ratio 08/29/2024 08/30/2023, 11/08 CKD HGB USE SMARTSET 59446 08/29/202408/29, 08/30/2023, 11/23/2022, Additional history exists TSH 08/29/2024 08/30/2023, 08/09, 11/23/2022, Additional history exists VITAMIN D LEVEL ONCE IN A LIFETIME-USE SMARTSET# 73630 Completed 11/23/2019, 11/16/2019, 07/17/2019, Additional history exists [...] and were consensually agreed upon. Care Teams Pharmacy Affairs Assistant Relationship Specialty Start Date End Date Jasbir Cason DO [address] [place] [address] PCP - General Family Medicine 11/21/20 documented as of this encounter
--- OUTSIDE RECORDS SUMMARY | 2024-03-21 07:31 | External Medical Summary | Summary of Care ---
Author Name Unknown Organization [facility] Address [address] [place] [address] Phone [phone] Care Team Providers Care Timber Spotter Name Role Phone Jasbir Cason DO Primary Care Provider [phone] Reason for Referral * Evaluate & Treat - Unlimited Visits (Within 30 days (routine)) - Authorized Specialty Diagnoses / Procedures Referred By Hector farah Referred To Contact Physical Therapy / Physical Medicine And Rehab Diagnoses Ambulatory dysfunction Upper extremity weakness Franca Gtz DO [address] [facility] [place] [address] Referral ID Status Reason Start Date Expiration Date Visits Requested Visits Authorized [id number] Authorized Specialty Services Required 10/20/2023 999 999 [...] State Dahlia Bueno [address] [place] [id number] Jasbir Cason DO [address] [facility] [place] [id number] Advice Allergies Active Allergy Reactions Criticality Noted Date Comments Cefazolin Low 02/08/2021 Other reaction(s): rash on abdomen Rosuvastatin Calcium Medium 01/12/2012 Muscle pain Atorvastatin Calcium Other (Please comment) Medium 01/17/2008 Elevated CK Simvastatin Muscle pain 03/28/2009 documented as of this encounter (statuses as of 10/28/2023) Medications Medication Sig Dispensed Refills Start Date [...] as of this encounter (statuses as of 10/28/2023) Active Problems Problem Noted Date Diagnosed Date [...] as of this encounter (statuses as of 10/28/2023) Resolved Problems Problem Noted Date Diagnosed Date [...] 07/27/2013 03/02/2014 Overview: 3 mm 07/21 [facility] [employer] Artery stenosis 07/27/2013 02/09/2017 Overview: M1 segment, mod-severe Nocturnal hypoxemia 06/09/2012 02/11/20 21 Genetic Sleep Disorder [facility] Other*[id number] 01/05/2012 12/05/2015 Follow-up examination, follo wing other [...] as of this encounter (statuses as of 10/28/2023) Immunizations Name Administration Dates Next Due COVID-19 [...] after I said I was calling from [facility]. If they call back, please address below. [...] mobility evaluation?: Patient Phone number of requestor: [phone] Diagnosis/reason for the mobility evaluation request: Patient [...] PM EST Office Visit Family Practice [place] [employer] [address] [place] [address] Jasbir Cason DO [address] [place] [address] Scheduled Referrals Name Type Priority Associated Diagnoses [...] Additional history exists CKD PHOS USE SMARTSET 65635 11/24/202311/07, 12/16/2021, 05/30/2021, Additional history exists HbA1c 11/24/2023 11/23/2022, 08/01/2022, 10/31/2020, Additional history exists Influenza Vaccine (FLU shot) (Season Ended) 2024 04/03/2020, 04/03/2020, 03/06/2019, Additional history exists Albumin/Creatinine Ratio 08/29/2024 08/30/2023, 11/08 CKD HGB USE SMARTSET 26872 08/29/202408/29, 08/30/2023, 11/23/2022, Additional history exists TSH 08/29/2024 08/30/2023, 08/09, 11/23/2022, Additional history exists VITAMIN D LEVEL ONCE IN A LIFETIME-USE SMARTSET# [id number] Completed 11/23/2019, 11/16/2019, 07/17/2019, Additional history exists [...] and were consensually agreed upon. Care Teams Timber Spotter Relationship Specialty Start Date End Date Jasbir Cason DO [address] [place], [place] [address] PCP - General Family Medicine 11/21/20 documented as of this encounter
[2024-03-21] MEDS: PIPERACILLIN/TAZOBACTAM 4.5 GM/100 ML BAG IV ONE (07:41)
[2024-03-21] MEDS: LEVOTHYROXINE SODIUM 112 MCG TABLET PO SCH (07:42)
[2024-03-21] MEDS: PANTOprazole 40 MG TAB PO SCH (08:06)
[2024-03-21] MEDS: LOSARTAN POTASSIUM 25 MG TAB PO SCH (08:06)
[2024-03-21] MEDS: SERTRALINE HCL 100 MG TABLET PO SCH (08:06)
[2024-03-21] MEDS: ATENOLOL 25 MG TABLET PO SCH (08:06)
[2024-03-21] MEDS: PIPERACILLIN/TAZOBACTAM 4.5 GM/100 ML BAG IV SCH (12:10)
--- NOTE | 2024-03-21 14:35 | Communication Note ---
Date of Service: March 21, 2024 Patient seen and examined at bedside. Comfortable; not in distress. Denies fever, chills, chest pain, shortness of breath, abdominal pain or urinary symptoms. No significant overnight events On physical examination Constitutional: Alert oriented x 3. Respiratory: normal respiratory effort, lungs clear to auscultation, no wheeze, rales, rhonchi. Normal insp/exp effort, no accessory muscle use Cardiovascular: RRR, no murmur, no edema Vessels: no JVD or carotid bruit Chest: normal inspection of chest Abdomen: normal bowel sounds, soft, nontender, no hepatosplenomegaly Musculoskeletal: no cyanosis or clubbing, extremities motor strength 5/5 Skin: no rashes, warm and dry normal turgor Neurologic: PERRL, EOMI, accommodation nl, no face palsy, no dysarthria CN's II- XI intact bilaterally and moves all extremities Psychiatric: A+Ox3, euthymic affect Assessment/plan Acute UTI Generalized weakness Hypothyroidism Patient presented to the hospital generalized weakness, nausea Urinalysis shows pyuria TSH markedly elevated with low free T4 Started on Zosyn; will follow-up on final culture results Restarted back on levothyroxine; patient was not taking medication for last 1 month. PT OT evaluation Severe malnutritionBMI of 14.6 kg/m2; dietitian consulted for comanagement Please note the above document was generated using voice recognition software. It may contain grammatical, syntax or spelling errors. Any formal questions or concerns about the content, text or information contained within the body of this dictation should be directly addressed to the provider for clarification
--- NOTE | 2024-03-22 01:27 | Communication Note ---
Date of Service: March 22, 2024 130 AM Notified by RN of new left facial droop PPE Coherent, no dysarthria Flattened left nasolabial fold (Not present during admission) Chronic LLE weakness from pain AP Left facial droop History cerebral aneurysm as per records Stroke alert called CT head 1. CT scan is negative for large territorial ischemic / hemorrhagic stroke. Non contrast CT can be negative in the setting of hyperacute infarct/small ischemic infarct and further evaluation with diffusion weighted MRI is recommended as clinically appropriate. 2. Stable findings compared to previous CT study. CTA head: 1. Mild to moderate left vertebral artery focal stenosis with non-occlusive atherosclerotic disease of the intracranial vessels as described. 2. Incidental right posterior cerebral artery variant. CTA neck: 1. No evidence of stenosis /occlusion / aneurysm. No evidence of dissection. 2. Few calcified plaques are noted involving bilateral common carotid, internal carotid and vertebral arteries not causing hemodynamically significant stenosis. Case discussed with Dr. Kauffman ([facility] Thrombolytic therapy not indicated given history cerebral aneurysm and information obtained from outpatient [facility] neurolog[place] note from 2019 mentioning chronic left facial droop of unknown duration. Facial droop may be recrudescence given current admission for UTI as per Neurology. Specialist recommends secondary stroke prophylaxis with aspirin 325 mg now followed by 81 mg p.o. daily and MRI of the brain for additional workup. Consider pravastatin given history of statin intolerance if MRI shows new stroke as per neurologist. Patient's son updated of developments over the phone.
[2024-03-22] MEDS: OPTIRAY 320 125ml IV ONE (01:56)
[2024-03-22 02:22] LABS: Basophils # (auto) 0.04 K/uL (0.00-0.20); Basophils % (auto) 0.7 %; Eosinophils # (auto) 0.12 K/uL (0.00-0.50); Hematocrit (blood only) 36.7 % (37.0-47.0); Hemoglobin 11.7 g/dl (12.0-16.0); Immature Granulocytes # (auto) 0.02 K/uL (0.01-0.20); Immature Granulocytes % (auto) 0.3 %; Lymphocytes # (auto) 1.17 K/uL (1.20-3.40); Lymphocytes % (auto) 19.8 %; Mean Corpuscular Hemoglobin 27.7 pg (25.0-34.0); Mean Corpuscular Hgb Conc 31.9 g/dL (32.0-36.0); Mean Platelet Volume 9.5 fL (9.4-12.4); Monocytes # (auto) 0.55 K/uL (0.11-0.59); Monocytes % (auto) 9.3 %; Neutrophils # (auto) 4.02 K/uL (1.40-6.50); Neutrophils % (auto) 67.9 %; Platelet Count 305 K/uL (130-400); RDW Coefficient of Variation 14.1 % (11.5-14.5); RDW Standard Deviation 45.1 fL (36.4-46.3); Red Blood Count 4.22 M/uL (4.20-5.40); White Blood Count 5.92 K/ul (4.8-10.8)
--- NOTE | 2024-03-22 02:32 | CT Scan Report ---
EXAM: CT head/brain wo con CLINICAL HISTORY: neuro deficit, acute stroke suspected TECHNIQUE: Multiple axial images are obtained from the skull base to the vertex without contrast. CT scan was performed according to ALARA (as low as reasonable achievable). COMPARISON: 07/13/2021 18:24:07 SITE COORDINATOR FINDINGS: The brain shows normal morphology and volume for age. No evidence of space occupying lesion, hemorrhage, edema, mass effect, midline shift, extra axial collection, or hydrocephalus is noted. Ventricles, sulci, and basal cisterns are symmetric and normal in size and configuration. Few linear and clumped calcifications are noted in deep white matter of right frontal lobe at ventricular level, likely representing vascular calcifications. No obvious evidence of loss of fontenot-white matter differentiation. Visualized paranasal sinuses and mastoid air cells are well aerated. Orbital contents are within normal limits. Bony structures show diffuse osteopenia. IMPRESSION: 1. CT scan is negative for large territorial ischemic / hemorrhagic stroke. Non contrast CT can be negative in the setting of hyperacute infarct/small ischemic infarct and further evaluation with diffusion weighted MRI is recommended as clinically appropriate. 2. Stable findings compared to previous CT study. Electronically signed by Db Villegas 03-22-2024 02:32 AM
[2024-03-22 02:34] LABS: Albumin Globulin Ratio 1.7 (0.9-2); Albumin Level 3.9 gm/dl (3.4-5.0); BUN Creatinine Ratio 20.2 (10-20); Bilirubin,Total 0.8 mg/dl (0.2-1.0); Calcium 9.6 mg/dl (8.6-10.3); Globulin 2.3 gm/dl (2.5-4.0); Magnesium 1.7 mg/dl (1.7-2.4); Potassium 3.6 mmol/L (3.5-5.1); Total Protein 6.2 gm/dl (6.0-8.3)
[2024-03-22 02:39] LABS: Troponin I High Sensitivity 12.4 pg/ml (0-14)
--- NOTE | 2024-03-22 02:39 | CT Scan Report ---
EXAM: CT angio neck with con CLINICAL HISTORY: neuro deficit, acute stroke suspected 116 cc opti 320 TECHNIQUE: Contrast enhanced thin slice CT angiography scan of the carotid vessels was performed with intravenous contrast. Angiographic images were processed, 3D MIP images were acquired for interpretation. Contiguous axial images were obtained. Reformatted coronal and sagittal images were also reviewed. If IV contrast material had not been administered, the likelihood of detecting abnormalities relevant to the patient's condition would have been substantially decreased. CT scan was performed according to ALARA (as low as reasonably achievable). COMPARISON: CT Neck angio dated 09/18/2020 FINDINGS: Included great vessels of the aortic arch are grossly unremarkable. Few calcified plaques are noted involving distal bilateral common carotid artery extending to the origin of internal and external carotid arteries (more on right side) causing mild luminal narrowing. Approximately 20% stenosis is noted at the level of right carotid bulb. Similar calcified plaques are also noted involving bilateral vertebral arteries not causing any hemodynamically significant stenosis. Tortuous course of bilateral internal carotid arteries is noted. Common carotid artery, carotid Bulb, internal carotid artery, and origin of the external carotid artery are well opacified. Vertebral arteries are well opacified. Jugular veins are well opacified. Included lung apices are grossly unremarkable. IMPRESSION: 1. No evidence of stenosis /occlusion / aneurysm. No evidence of dissection. 2. Few calcified plaques are noted involving bilateral common carotid, internal carotid and vertebral arteries not causing hemodynamically significant stenosis. 3. No significant interval change as compared to prior study. Electronically signed by Db Villegas 03-22-2024 02:39 AM
--- NOTE | 2024-03-22 02:42 | CT Scan Report ---
EXAM: CT angio head w con CLINICAL HISTORY: neuro deficit, acute stroke suspected 116 cc opti 320 TECHNIQUE: Contrast enhanced thin slice CT angiography scan of the cerebral vessels was performed with intravenous contrast. Angiographic images were processed, 3D MIP images were acquired for interpretation. Contiguous axial images were obtained. Reformatted coronal and sagittal images were also reviewed. If IV contrast material had not been administered, the likelihood of detecting abnormalities relevant to the patients condition would have been substantially decreased. CT scan was performed according to ALARA (as low as reasonable achievable). COMPARISON: None. FINDINGS: Bilateral internal carotid arteries show eccentric atherosclerotic calcifications in their cavernous portions, without causing significant luminal narrowing. Anatomical variant noted with right posterior cerebral artery. Bilateral vertebral arteries demonstrate few eccentric calcified and non-calcified plaques, causing mild to moderate luminal narrowing on the left side without significant stenosis on the right. Bilateral A1, A2 and M1, M2 segments are normal. Basilar artery shows normal course, caliber and opacification. Visualized venous structures show normal opacification. No evidence of intracranial aneurysm or AV malformation is seen. IMPRESSION: 1. Mild to moderate left vertebral artery focal stenosis with non-occlusive atherosclerotic disease of the intracranial vessels as described. 2. Incidental right posterior cerebral artery variant. Electronically signed by Db Villegas 03-22-2024 02:41 AM
[2024-03-22 02:46] LABS: Partial Thromboplastin Time 27 Seconds (21-31); Prothrombin Time 10.9 Seconds (9.0-12.0)
[2024-03-22] MEDS ORDERED: PHARMACIST DISCHARGE MED REC CONSULT PRN ×2 (02:55→02:57)
[2024-03-22] MEDS: ASPIRIN 81 MG CHEW PO STA (03:02)
[2024-03-22] MEDS: NSS + 20MEQ KCL 20 MEQ/1,000 ML BAG IV ONE (03:35)
[2024-03-22] MEDS: MAGNESIUM SULFATE / D5W 1 GM/100 ML BAG IV SCH (05:11)
[2024-03-22] MEDS: ACETAMINOPHEN 325 MG TAB PO PRN (14:44)
--- NOTE | 2024-03-22 16:25 | Hospitalist Progress Note ---
Date of Service March 22, 2024 Assessment & Plan (1) Complicated UTI (urinary tract infection): Plan: Acute Complicated UTI H/O mixed stress/urge incontinence as per record Generalized weakness secondary to above --CT ABD: No acute findings in the abdomen or pelvis. -- Urine culture more than 3 types of organisms, all counts, repeat collection recommended -- Will request to send repeat urine culture -- Empirically on IV Zosyn Received IV fluids Abnormal thyroid function test Thyroid cancer S/P surgery Postsurgical hypothyroidism Noncompliance with taking home medication for 1 month Markedly elevated TSH, low free T4 Restarted levothyroxine Needs repeat thyroid function test as outpatient Strokelike symptoms H/O cerebral aneurysm Left vertebral artery focal stenosis Night hospitalist discussed with Dr. Kauffman ([facility]). Thrombolytic therapy not indicated given history cerebral aneurysm and information obtained from outpatient [facility] neurology note from 2019 mentioning chronic left facial droop of unknown duration. --CT Head:CT scan is negative for large territorial ischemic / hemorrhagic stroke. Non contrast CT can be negative in the setting of hyperacute infarct/small ischemic infarct and further evaluation with diffusion weighted MRI is recommended as clinically appropriate. Stable findings compared to previous CT study. --Head CTA: Mild to moderate left vertebral artery focal stenosis with non- occlusive atherosclerotic disease of the intracranial vessels as described. Incidental right posterior cerebral artery variant. --Neck CTA: No evidence of stenosis /occlusion / aneurysm. No evidence of dissection. Few calcified plaques are noted involving bilateral common carotid, internal carotid and vertebral arteries not causing hemodynamically significant stenosis. No significant interval change as compared to prior study. --Lipid panel pending --MRI brain pending --Started on aspirin 81 mg daily --Neurology consulted -Continue PT OT, speech eval- Hypertensive urgency Losartan currently held due to your possible CVA Continue atenolol Monitor BP Anion gap metabolic acidosis Resolved with IV fluids Monitor Severe malnutrition BMI 22 Dietitian consulted Other chronic conditions: Hyperlipidemia: H/O statin intolerance H/O PVD/ cerebral aneurysm as per records MERY not on CPAP GERD Prediabetes, hemoglobin A1c of 6.1 last July 2023 Chronic anemia, hemoglobin better than baseline likely secondary to hemoconcentration Anxiety/mood disorder/dementia Continue home medications as able DVT Px: SCDs for now Code Status Full code Admission and Anticipated Discharge Date Admission Date: March 21, 2024 Subjective Patient is seen and examined at bedside Patient is confused overnight and this morning No distress on inspection Concern for new left facial droop overnight MRI brain pending Review of Systems Review of Systems: Other Physical Exam Physical Exam: Refused physical exam Results & Data Results & Data Vital Signs (Past 12 Hours) Vital Signs Temp Pulse Pulse Resp BP Pulse Ox O2 Del Method 03/22/24 15:09 36.5 C 59 L 18 167/80 H 96 Room Air 03/22/24 11:28 36.8 C 64 18 167/73 H 94 Room Air 03/22/24 07:42 36.5 C 66 18 152/70 H 92 Room Air 03/22/24 05:48 60 Laboratory Results Short CBC 03/22/24 Range/Units 01:44 WBC 5.92 (4.8-10.8) K/ul Hgb 11.7 L (12.0-16.0) g/dl Hct 36.7 L (37.0-47.0) % Plt Count 305 (130-400) K/uL BMP 03/22/24 01:44 Sodium 135 L Potassium 3.6 Chloride 105 Carbon Dioxide 23 BUN 17 Creatinine 0.84 Glucose 94 Calcium 9.6 Liver Function 03/22/24 Range/Units 01:44 Total Bilirubin 0.8 (0.2-1.0) mg/dl AST 21 (13-39) U/L ALT 13 (7-52) U/L Alkaline Phosphatase 72 (34-104) U/L Albumin 3.9 (3.4-5.0) gm/dl
[2024-03-23 07:56] LABS: Hematocrit (blood only) 37.2 % (37.0-47.0); Hemoglobin 12.2 g/dl (12.0-16.0); Mean Corpuscular Hemoglobin 28.2 pg (25.0-34.0); Mean Corpuscular Hgb Conc 32.8 g/dL (32.0-36.0); Mean Corpuscular Volume 85.9 fL (80.0-100.0); Mean Platelet Volume 9.2 fL (9.4-12.4); Platelet Count 295 K/uL (130-400); RDW Standard Deviation 43.5 fL (36.4-46.3); Red Blood Count 4.33 M/uL (4.20-5.40); White Blood Count 7.78 K/ul (4.8-10.8)
[2024-03-23 08:14] LABS: BUN Creatinine Ratio 15.7 (10-20); Calcium 9.3 mg/dl (8.6-10.3); Creatinine Clr Calc Pharmacy 45.5 ml/min; Magnesium 1.7 mg/dl (1.7-2.4); Potassium 3.5 mmol/L (3.5-5.1)
--- NOTE | 2024-03-23 08:58 | Electrocardiogram Report ---
Test Reason : Blood Pressure : */* mmHG Vent. Rate : 63 BPM Atrial Rate : 63 BPM P-R Int : 186 ms QRS Dur : 80 ms QT Int : 432 ms P-R-T Axes : 53 23 43 degrees QTcB Int : 442 ms Normal sinus rhythm Normal ECG When compared with ECG of 20-Mar-2024 21:15, Premature ventricular complexes are no longer Present Vent. rate has decreased by 43 bpm Confirmed by Albert Cerda ([id number]) on 03/23/2024 8:58:09 AM Referred By: REFERRED SELF Confirmed By: Albert Cerda
[2024-03-23] MEDS: ASPIRIN 81 MG ECTAB PO SCH (10:03)
[2024-03-23] MEDS: LORazepam 2 MG/1 ML VIAL IV PRN (12:56)
--- NOTE | 2024-03-23 14:24 | Magnetic Resonance Report ---
MR brain wo con HISTORY: 88 years-old Female L facial droop acute strokelike symptoms COMPARISON: Head CT 03/22/2024, brain MRI 09/18/2020 TECHNIQUE: Multiplanar multisequence MRI of the brain was obtained without IV contrast FINDINGS: No restricted diffusion to suggest acute or subacute infarct. The midline structures appear unremarka ble. Study is mildly motion degraded. Shunt changes of the cervical spine with at least mild central canal stenosis at C2-C3 and C3-C4. No acute intracranial hemorrhage, midline shift, abnormal extra-axial collection, hydrocephalus or in tra-axial mass. Left frontal calvarial lesion measuring 2.4 cm image 18 series 8. Generally unchanged and favored to be benign. Involutional changes with extensive T2/FLAIR hyperintense foci throughout the white matter. These findings have progressed from prior. Cerebral venous sinuses and major arterial flow voids appear patent. Prior bilateral lens repair. Tra ce mastoid effusions. IMPRESSION: 1. No acute intracranial abnormality. No acute or subacute infarct. 2. Involutional changes with extensive chronic microvascular ischemic disease, progressively worsened compared to the study from 2020. ACT 112: Negative or not required by law. The above report was generated using voice recognition software. It may contain grammatical, syntax o r spelling errors. Electronically signed by: Fabricio Desouza M.D. 03/23/2024 2:22 PM
--- NOTE | 2024-03-23 14:33 | CT Scan Report ---
CT chest diagnostic wo con CT DOSE: 466.66 mGy.cm CLINICAL HISTORY: 88 years-old Female with chest pain/tenderness. Acute chest pain with shortness of breath TECHNIQUE: Multiaxial CT images of the chest were performed without contrast. A dose lowering techni que was utilized adhering to the principles of ALARA. COMPARISON: CT chest 10/07/2017, CT abdomen and pelvis 03/20/2024 FINDINGS: No pathologically enlarged lymph nodes. Cardiomegaly with mild coronary artery calcificatio ns. Atherosclerosis of the thoracic aorta without aneurysm. Dilation of the main pulmonary arteries s uggestive of pulmonary arterial hypertension. Trace pleural effusions. No pneumothorax. Mild dependent bibasilar atelectasis, greatest in the left lower lobe. Mild pulmonary emphysema. There are no suspicious pulmonary nodules or masses identified. Central airways are patent. No acute upper abdominal abnormality. Stable benign hypodense lesion of the right hepatic lobe. Probable retained contrast in the superior pole collecting system of the righ t kidney. A renal calculus considered less likely. Large hiatal hernia with diffuse wall thickening o f the esophagus. Severe osteoarthritis of the glenohumeral joints, right greater than left. Chronic h ealed sternal fractures. Chronic compression deformity of the T8 vertebral body. Partially imaged L1 compression deformity better seen on the study from 03/20/2024. Right glenohumeral joint effusion. IMPRESSION: 1. Cardiomegaly with evidence of pulmonary arterial hypertension. 2. Trace pleural effusions with mild bibasilar atelectasis. 3. Large hiatal hernia with diffuse esophageal wall thickening which may represent esophagitis. 4. Right glenohumeral joint effusion, likely secondary to the associated severe osteoarthritis. ACT 112: Negative or not required by law. Electronically signed by: Fabricio Desouza M.D. 03/23/2024 2:31 PM
--- NOTE | 2024-03-23 14:42 | Neurology Consultation ---
Date of Consultation March 23, 2024 Assessment & Plan (1) Complicated UTI (urinary tract infection): Kathia Burnett is an 88 yo F presenting with encephalopathy secondary to UTI and hospital delirium, now improving. Agree L facial droop is chronic and MRI brain is unremarkable. No further neurologic workup recommended. Continue supportive care for infection and delirium. Telehealth Consultation Telehealth Information Telehealth Information: I performed this visit using a real-time telehealth connection between my location and the patients location ([facility]). After connecting through interactive tele-video, patient was identified by name and date of and/or wristband check.Patient (or authorized healthcare clearance representative) was informed that this was a telemedicine visit and it was being conducted confidentially over secure lines. My office door was closed and no one else was present in the room with me.Patient (or authorized healthcare clearance representative) provided consent to proceed with the visit, expressed an understanding of privacy and security of the telemedicine visit, and gave permission to have a hospital clearance representative in the room in order to assist with the visit and to conduct portions of the visit, as needed. I informed the patient (or authorized healthcare clearance representative) that I reviewed their record and presented the opportunity for them to ask any questions regarding the visit today. The patient agreed to participate. History of Present Illness Reason for Consultation: L facial droop and AMS Requesting Physician: Dr. Arita Attending Physician: Jean Arita MD History of Present Illness Kathia Burnett is an 88 yo F presenting with dehydration and UTI on IV abx. She developed hospital delirium and was seen by telestroke yesterday as nursing noted a L facial droop. Today her mental status is improved, per telestroke she has a history of a chronic L facial droop in the past. The patient otherwise re ports abdominal pain today. No headache, vision changes or other neurologic symptoms reported. Allergies Allergy/AdvReac Type Severity Reaction Status Date / Time simvastatin AdvReac Intermediate Muscle Pain Verified 07/15/23 03:09 Ejfbzas-UYX-IyJ Reductase AdvReac Intermediate MUSCLE Verified 07/15/23 03:09 Inhibitor ACHES-ELEVATED [Adgnfzz-Eqq-Sfv Reductase CK WITH Inhibitor] LIPITOR PER HISTORY tramadol AdvReac Intermediate Confusion Verified 07/15/23 03:46 cefazolin [From Ancef] AdvReac Mild rash on Verified 07/15/23 03:09 abdomen Home Medications Medication Instructions Recorded Confirmed Type pantoprazole 40 mg tablet,delayed 40 mg PO BID 10/07/18 03/21/24 History release atenolol 25 mg tablet 25 mg PO DAILY 01/06/21 03/21/24 History losartan 25 mg tablet 25 mg PO QAM 02/04/21 03/21/24 History sertraline 100 mg tablet 100 mg PO QAM 02/04/21 03/21/24 History acetaminophen 500 mg tablet 1,000 mg (2 x 500 mg) PO Q8 PRN 02/28/21 03/21/24 Rx (Tylenol Extra Strength) fever or pain #30 tabs levothyroxine 112 mcg tablet 112 mcg PO DAILYBB 07/13/23 03/21/24 History cholecalciferol (vitamin D3) 25 25 mcg PO QAM #30 caps 07/30/23 03/21/24 Rx mcg (1,000 unit) capsule Patient History Medical History Bacteremia Infective endocarditis Leukocytosis Acute on chronic renal insufficiency Sepsis Acute kidney injury superimposed on chronic kidney disease Infection Sepsis PSVT (paroxysmal supraventricular tachycardia) Left leg swelling Fall Thyroid cancer Depression MERY (obstructive sleep apnea) HLD (hyperlipidemia) HTN (hypertension) CKD (chronic kidney disease), stage III Cerebral aneurysm "[facility] 07/22/13 3 mm fusiform aneurysm takeoff right [employer]" Hypothyroidism Hypertensive heart disease History of papillary adenocarcinoma of thyroid Esophagitis (12/26/10) Panic disorder (12/26/10) Surgical History Status post thyroidectomy Status post appendectomy Family History Other Diabetes Hypertension Social History Smoking Status: Never smoker Second Hand Exposure: No; Do You Dip or Chew Tobacco: No; Hx Alcohol Use: No Hx Substance Use: No Preferred Language: Belarusian Communication Ability: Effective Film Maker Required: No Beliefs That Will Affect Care: None marital status: / Current Living Situation: Alone Current Living Situation Comment: Lives at home alone How many Children do You have: 3 Feels Safe at Home: Yes Safety Concerns: Feels Safe At This Time Assistive Devices: Walker and Wheelchair Review of Systems Confusion Physical Exam Awake and alert, disoriented to situation. L facial droop noted, no dysarthria. Antigravity strength throughout. Results & Data Vital Signs (Past 12 Hours) Vital Signs Temp Pulse Resp BP Pulse Ox O2 Del Method 03/23/24 12:00 36.6 C 95 H 16 113/73 95 Room Air 03/23/24 08:00 36.6 C 86 16 137/84 96 Room Air 03/23/24 03:53 36.5 C 64 20 173/80 H 94 Room Air Laboratory Results Abnormal lab results 03/23/24 Range/Units 07:41 MPV 9.2 L (9.4-12.4) fL Glucose 116 H (70-99(Fasting)) mg/dl Cholesterol 303 H (0-200) mg/dl Diagnostic Findings MRI brain (03/23) Unremarkable
--- NOTE | 2024-03-23 15:45 | Hospitalist Progress Note ---
Date of Service March 23, 2024 Assessment & Plan (1) Complicated UTI (urinary tract infection): Plan: Acute Complicated UTI H/O mixed stress/urge incontinence as per record Generalized weakness secondary to above --CT ABD: No acute findings in the abdomen or pelvis. -- Urine culture more than 3 types of organisms, all counts, repeat collection recommended -- Repeat urine culture pending -- Empirically on IV Zosyn Received IV fluids Continue current antibiotics for now Abnormal thyroid function test Thyroid cancer S/P surgery Postsurgical hypothyroidism Noncompliance with taking home medication for 1 month Markedly elevated TSH, low free T4 Restarted levothyroxine Needs repeat thyroid function test as outpatient Acute metabolic encephalopathy--POA Strokelike symptoms H/O cerebral aneurysm Left vertebral artery focal stenosis Chronic left facial droop Night hospitalist discussed with Dr. Kauffman ([facility] [place] [facility] Thrombolytic therapy not indicated given history cerebral aneurysm and information obtained [place] [facility] [place] mentioning chronic left facial droop of unknown duration. --CT Head:CT scan is negative for large territorial ischemic / hemorrhagic st [facility]. Non contrast CT can be negative in the setting of hyperacute infarct/small ischemic infarct and further evaluation with diffusion weighted MRI is recommended as clinically appropriate. Stable findings compared to previous CT study. --Head CTA: Mild to moderate left vertebral artery focal stenosis with non- occlusive atherosclerotic disease of the intracranial vessels as described. Incidental right posterior cerebral artery variant. --Neck CTA: No evidence of stenosis /occlusion / aneurysm. No evidence of dissection. Few calcified plaques are noted involving bilateral common carotid, internal carotid and vertebral arteries not causing hemodynamically significant stenosis. No significant interval change as compared to prior study. --MRI Brain:No acute intracranial abnormality. No acute or subacute infarct. Involutional changes with extensive chronic microvascular ischemic disease, progressively worsened compared to the study from 2020. --Lipid panel reviewed --Started on aspirin 81 mg daily -- Appreciate neurology input -Continue PT OT, speech eval- -tolerating regular diet Mental status slowly improving Could consider Repatha. Will defer hyperlipidemia management to PCP Hypertensive urgency Losartan initially held due to your possible CVA Continue atenolol Resume losartan tomorrow Monitor BP Atypical chest discomfort Possible esophagitis on CT scan Continue PPI Will add Pepcid as needed Will need EGD as outpatient Right glenohumeral joint effusion Likely due to osteoarthritis Incidental finding on CT Follow-up as outpatient Anion gap metabolic acidosis Resolved with IV fluids Monitor Severe malnutrition BMI 22 Dietitian consulted Other chronic conditions: Hyperlipidemia: H/O statin intolerance H/O PVD/ cerebral aneurysm as per records MERY not on CPAP GERD Prediabetes, hemoglobin A1c of 6.1 last July 2023 Chronic anemia, hemoglobin better than baseline likely secondary to hemoconcentration Anxiety/mood disorder/dementia Continue home medications as able DVT Px: Heparin SQ Code Status Full code Admission and Anticipated Discharge Date Admission Date: March 21, 2024 Subjective Patient is seen and examined at bedside Mental status slowly improving Discussed with neurology today Patient reports having some pleuritic chest discomfort Denies any dyspnea, nausea, vomiting, abdominal pain No other complaints Review of Systems Review of Systems: Other Physical Exam Physical Exam: Physical Exam: Vitals signs as noted above General Appearance:Moderately built and nourished, no apparent distress Head: normocephalic, Atraumatic Eyes: normal inspection, EOMI Neck: supple, Trachea midline Respiratory/Chest: Normal breath sounds, CTA,+ mild chest tenderness, no accessory muscle use Cardiovascular: S1, S2, No murmur Abdomen/GI:Soft, Non tender, Bowel sounds present Extremities/Musculoskeletal:normal inspection, no edema Neurologic/Psych:AAOx2, + left facial droop, otherwise grossly no focal deficits. Skin: normal color, warm Results & Data Results & Data Vital Signs (Past 12 Hours) Vital Signs Temp Pulse Resp BP Pulse Ox O2 Del Method 03/23/24 12:00 36.6 C 95 H 16 113/73 95 Room Air 03/23/24 08:00 36.6 C 86 16 137/84 96 Room Air 03/23/24 03:53 36.5 C 64 20 173/80 H 94 Room Air Laboratory Results Short CBC 03/23/24 Range/Units 07:41 WBC 7.78 (4.8-10.8) K/ul Hgb 12.2 (12.0-16.0) g/dl Hct 37.2 (37.0-47.0) % Plt Count 295 (130-400) K/uL BMP 03/23/24 07:41 Sodium 137 Potassium 3.5 Chloride 106 Carbon Dioxide 22 BUN 13 Creatinine 0.83 Glucose 116 H Calcium 9.3
--- NOTE | 2024-03-23 16:19 | Electrocardiogram Report ---
Test Reason : Blood Pressure : */* mmHG Vent. Rate : 106 BPM Atrial Rate : 106 BPM P-R Int : 168 ms QRS Dur : 76 ms QT Int : 350 ms P-R-T Axes : 69 14 73 degrees QTcB Int : 464 ms Sinus tachycardia with occasional Premature ventricular complexes Otherwise normal ECG When compared with ECG of 15-Jul-2023 00:13, Premature ventricular complexes are now Present MO interval has decreased Borderline Criteria for Anterior infarct no longer present Confirmed by Albert Cerda ([id number]) on 03/23/2024 4:19:37 PM Referred By: REFERRED SELF Confirmed By: Albert Cerda
[2024-03-23] MEDS: HEPARIN SOD 5,000 UNIT/0.5 ML VIAL SQ SCH (20:37)
[2024-03-24 06:49] LABS: BUN Creatinine Ratio 23.2 (10-20); Calcium 8.9 mg/dl (8.6-10.3); Creatinine Clr Calc Pharmacy 38.2 ml/min; Potassium 3.5 mmol/L (3.5-5.1)
--- NOTE | 2024-03-24 14:50 | Hospitalist Progress Note ---
Date of Service March 24, 2024 Assessment & Plan (1) Complicated UTI (urinary tract infection): Plan: Acute Complicated UTI H/O mixed stress/urge incontinence as per record Generalized weakness secondary to above --CT ABD: No acute findings in the abdomen or pelvis. -- Urine culture more than 3 types of organisms, all counts, repeat collection recommended -- Repeat urine culture negative to date -- Empirically on IV Zosyn Received IV fluids Likely titrate down antibiotics tomorrow Patient's family not interested in rehab placement as concern for delirium Abnormal thyroid function test Thyroid cancer S/P surgery Postsurgical hypothyroidism Noncompliance with taking home medication for 1 month Markedly elevated TSH, low free T4 Restarted levothyroxine Needs repeat thyroid function test as outpatient Acute metabolic encephalopathy--POA likely acute metabolic encephalopathy, delirium Strokelike symptoms H/O cerebral aneurysm Left vertebral artery focal stenosis Chronic left facial droop Night hospitalist discussed with Dr. Kauffman ([facility] [place] [facility]). Thrombolytic therapy not indicated given history cerebral aneurysm and information [place] [facility] [place] mentioning chronic left facial droop of unknown duration. --CT Head:CT scan is negative for large territorial ischemic / hemorrhagic stroke. Non contrast CT can be negative in the setting of hyperacute infarct/small ischemic infarct and further evaluation with diffusion weighted MRI is recommended as clinically appropriate. Stable findings compared to previous CT study. --Head CTA: Mild to moderate left vertebral artery focal stenosis with non- occlusive atherosclerotic disease of the intracranial vessels as described. Incidental right posterior cerebral artery variant. --Neck CTA: No evidence of stenosis /occlusion / aneurysm. No evidence of dissection. Few calcified plaques are noted involving bilateral common carotid, internal carotid and vertebral arteries not causing hemodynamically significant stenosis. No significant interval change as compared to prior study. --MRI Brain:No acute intracranial abnormality. No acute or subacute infarct. Involutional changes with extensive chronic microvascular ischemic disease, progressively worsened compared to the study from 2020. --Lipid panel reviewed --Started on aspirin 81 mg daily -- Appreciate neurology input -Continue PT OT, speech eval- -tolerating regular diet Mental status waxes and wanes Could consider Repatha. Will defer hyperlipidemia management to PCP Reorient frequently to minimize delirium Hypertensive urgency Continue atenolol, losartan Monitor BP Atypical chest discomfort Possible esophagitis on CT scan Continue PPI Will add Pepcid as needed Will need EGD as outpatient Right glenohumeral joint effusion Likely due to osteoarthritis Incidental finding on CT Follow-up as outpatient Anion gap metabolic acidosis Resolved with IV fluids Monitor Severe malnutrition BMI 22 Dietitian consulted Other chronic conditions: Hyperlipidemia: H/O statin intolerance H/O PVD/ cerebral aneurysm as per records MERY not on CPAP GERD Prediabetes, hemoglobin A1c of 6.1 last July 2023 Chronic anemia, hemoglobin better than baseline likely secondary to hemoconcentration Anxiety/mood disorder/dementia Continue home medications as able DVT Px: Heparin SQ Code Status Full code Disposition Home with home health as able Admission and Anticipated Discharge Date Admission Date: March 21, 2024 Subjective Patient is seen and examined at bedside Drowsy during my encounter Mental status waxes and wanes Updated patient's son over the phone Pleuritic chest discomfort much improved per patient Denies any dyspnea, nausea, vomiting, abdominal pain Review of Systems Review of Systems: All systems reviewed & are unremarkable except as noted in Subjective Physical Exam Physical Exam: Physical Exam: Vitals signs as noted above General Appearance:Moderately built and nourished, no apparent distress Head: normocephalic, Atraumatic Eyes: normal inspection, EOMI Neck: supple, Trachea midline Respiratory/Chest: Normal breath sounds, CTA, no accessory muscle use Cardiovascular: S1, S2, No murmur Abdomen/GI:Soft, Non tender, Bowel sounds present Extremities/Musculoskeletal:normal inspection, no edema Neurologic/Psych:AAOx2, + left facial droop, otherwise grossly no focal deficits. Skin: normal color, warm Results & Data Results & Data Vital Signs (Past 12 Hours) Vital Signs Temp Pulse Resp BP Pulse Ox O2 Del Method 03/24/24 11:21 36.8 C 56 L 18 136/79 91 Room Air 03/24/24 07:59 36.7 C 87 18 145/89 H 93 Room Air Laboratory Results [facility] 03/24/24 06:08 Sodium 137 Potassium 3.5 Chloride 108 H Carbon Dioxide 24 BUN 23 Creatinine 0.99 Glucose 113 H Calcium 8.9
[2024-03-24] MEDS: PROMETHAZINE 6.25 MG/50.25 ML BAG IV PRN (19:56)
[2024-03-25 07:28] LABS: Hematocrit (blood only) 33.9 % (37.0-47.0); Hemoglobin 11.1 g/dl (12.0-16.0); Mean Corpuscular Hemoglobin 28.2 pg (25.0-34.0); Mean Corpuscular Hgb Conc 32.7 g/dL (32.0-36.0); Mean Platelet Volume 9.6 fL (9.4-12.4); Platelet Count 292 K/uL (130-400); RDW Coefficient of Variation 14.6 % (11.5-14.5); RDW Standard Deviation 45.7 fL (36.4-46.3); Red Blood Count 3.94 M/uL (4.20-5.40)
[2024-03-25] MEDS: FAMOTIDINE 10 MG TABLET PO PRN (09:12)
--- NOTE | 2024-03-25 13:49 | Hospitalist Progress Note ---
Date of Service March 25, 2024 Assessment & Plan (1) Complicated UTI (urinary tract infection): Plan: Acute Complicated UTI H/O mixed stress/urge incontinence as per record Generalized weakness secondary to above --CT ABD: No acute findings in the abdomen or pelvis. -- Urine culture more than 3 types of organisms, all counts, repeat collection recommended -- Repeat urine culture negative -- Empirically on IV Zosyn> transition to Augmentin to complete the course Received IV fluids Patient's family not interested in rehab placement as concern for worsening delirium in the past Likely discharge tomorrow Abnormal thyroid function test Thyroid cancer S/P surgery Postsurgical hypothyroidism Noncompliance with taking home medication for 1 month Markedly elevated TSH, low free T4 Restarted levothyroxine Needs repeat thyroid function test as outpatient Acute metabolic encephalopathy--POA likely acute metabolic encephalopathy, delirium Strokelike symptoms H/O cerebral aneurysm Left vertebral artery focal stenosis Chronic left facial droop Night hospitalist discussed with Dr. Kauffman ([facility] [place] [facility] Thrombolytic therapy not indicated given history cerebral aneurysm and information obtained from outpatient [facility] [place] neurolog[place] from 2019 mentioning chronic left facial droop of unknown duration. --CT Head:CT scan is negative for large territorial ischemic / hemorrhagic stroke. Non contrast CT can be negative in the setting of hyperacute infarct/small ischemic infarct and further evaluation with diffusion weighted MRI is recommended as clinically appropriate. Stable findings compared to previous CT study. --Head CTA: Mild to moderate left vertebral artery focal stenosis with non- occlusive atherosclerotic disease of the intracranial vessels as described. In cidental right posterior cerebral artery variant. --Neck CTA: No evidence of stenosis /occlusion / aneurysm. No evidence of dissection. Few calcified plaques are noted involving bilateral common carotid, internal carotid and vertebral arteries not causing hemodynamically significant stenosis. No significant interval change as compared to prior study. --MRI Brain:No acute intracranial abnormality. No acute or subacute infarct. Involutional changes with extensive chronic microvascular ischemic disease, progressively worsened compared to the study from 2020. --Lipid panel reviewed --Started on aspirin 81 mg daily -- Appreciate neurology input -Continue PT OT, speech eval- -tolerating regular diet Mental status waxes and wanes Could consider Repatha. Will defer hyperlipidemia management to PCP Reorient frequently to minimize delirium Hypertensive urgency Continue atenolol, losartan Blood pressure improved, monitor Atypical chest discomfort Possible esophagitis on CT scan Continue PPI Will add Pepcid as needed Will need EGD as outpatient Right glenohumeral joint effusion Likely due to osteoarthritis Incidental finding on CT Follow-up as outpatient Anion gap metabolic acidosis Resolved with IV fluids Monitor Severe malnutrition BMI 22 Dietitian consulted Other chronic conditions: Hyperlipidemia: H/O statin intolerance H/O PVD/ cerebral aneurysm as per records MERY not on CPAP GERD Prediabetes, hemoglobin A1c of 6.1 last July 2023 Chronic anemia, hemoglobin better than baseline likely secondary to hemoconcentration Anxiety/mood disorder/dementia Continue home medications as able DVT Px: Heparin SQ Code Status Full code Disposition Home with home health as able Admission and Anticipated Discharge Date Admission Date: March 21, 2024 Subjective Patient is seen and examined at bedside States having nausea associated with minimal vomiting today Discussed with patient's son at bedside and family over the phone Urine culture negative Denies any dyspnea, abdominal pain, dizziness Review of Systems Review of Systems: All systems reviewed & are unremarkable except as noted in Subjective Physical Exam Physical Exam: Physical Exam: Vitals signs as noted above General Appearance:Moderately built and nourished, no apparent distress Head: normocephalic, Atraumatic Eyes: normal inspection, EOMI Neck: supple, Trachea midline Respiratory/Chest: Normal breath sounds, CTA, no accessory muscle use Cardiovascular: S1, S2, No murmur Abdomen/GI:Soft, Non tender, Bowel sounds present Extremities/Musculoskeletal:normal inspection, no edema Neurologic/Psych:AAOx2, + left facial droop, otherwise grossly no focal deficits. Skin: normal color, warm Results & Data Results & Data Vital Signs (Past 12 Hours) Vital Signs Temp Pulse Pulse Resp BP Pulse Ox O2 Del Method 03/25/24 11:23 36.7 C 62 20 118/71 92 Room Air 03/25/24 07:46 36.7 C 92 H 20 138/89 94 Room Air 03/25/24 07:11 91 H 03/25/24 02:58 36.3 C L 97 H 16 147/96 H 93 Room Air Laboratory Results Short CBC 03/25/24 Range/Units 06:23 WBC 6.00 (4.8-10.8) K/ul Hgb 11.1 L (12.0-16.0) g/dl Hct 33.9 L (37.0-47.0) % Plt Count 292 (130-400) K/uL
[2024-03-25] MEDS: AMOXICILLIN/CLAVULANATE 875 MG TAB PO SCH (16:32)
[2024-03-26] MEDS: MELATONIN 3 MG TAB PO PRN (00:51)
[2024-03-26 04:47] VITALS: TEMP 98.1
[2024-03-26 11:57] VITALS: RESP 16; O2SAT 94
--- NOTE | 2024-03-26 12:10 | Hospitalist Progress Note ---
Date of Service March 26, 2024 Assessment & Plan (1) Complicated UTI (urinary tract infection): Plan: Acute Complicated UTI H/O mixed stress/urge incontinence as per record Generalized weakness secondary to above --CT ABD: No acute findings in the abdomen or pelvis. -- Urine culture more than 3 types of organisms, all counts, repeat collection recommended -- Repeat urine culture negative -- Empirically on IV Zosyn> transition to Augmentin to complete the course Received IV fluids Patient's family not interested in rehab placement as concern for worsening delirium in the past Plan to discharge home today Abnormal thyroid function test Thyroid cancer S/P surgery Postsurgical hypothyroidism Noncompliance with taking home medication for 1 month Markedly elevated TSH, low free T4 Restarted levothyroxine Needs repeat thyroid function test as outpatient Acute metabolic encephalopathy--POA likely acute metabolic encephalopathy, delirium Strokelike symptoms H/O cerebral aneurysm Left vertebral artery focal stenosis Chronic left facial droop Night hospitalist discussed with Dr. Kauffman ([facility] [place]). Thrombolytic therapy not indicated given history cerebral aneurysm and information obtained from outpatient [facility] [place] from 2019 mentioning chronic left facial droop of unknown duration. --CT Head:CT scan is negative for large territorial ischemic / hemorrhagic stroke. Non contrast CT can be negative in the setting of hyperacute infarct/small ischemic infarct and further evaluation with diffusion weighted MRI is recommended as clinically appropriate. Stable findings compared to previous CT study. --Head CTA: Mild to moderate left vertebral artery focal stenosis with non- occlusive atherosclerotic disease of the intracranial vessels as described. Incidental right posterior cerebral artery variant. --Neck CTA: No evidence of stenosis /occlusion / aneurysm. No evidence of dissection. Few calcified plaques are noted involving bilateral common carotid, internal carotid and vertebral arteries not causing hemodynamically significant stenosis. No significant interval change as compared to prior study. --MRI Brain:No acute intracranial abnormality. No acute or subacute infarct. Involutional changes with extensive chronic microvascular ischemic disease, progressively worsened compared to the study from 2020. --Lipid panel reviewed --Started on aspirin 81 mg daily -- Appreciate neurology input -Continue PT OT, speech eval- -tolerating regular diet Mental status waxes and wanes Could consider Repatha. Will defer hyperlipidemia management to PCP. Informed patient's family. Reorient frequently to minimize delirium Hypertensive urgency Continue atenolol, losartan Blood pressure stable Atypical chest discomfort Possible esophagitis on CT scan Continue PPI Will add Pepcid as needed May need GI follow-up for EGD as outpatient Right glenohumeral joint effusion Likely due to osteoarthritis Incidental finding on CT Follow-up as outpatient Anion gap metabolic acidosis Resolved with IV fluids Monitor Severe malnutrition BMI 22 Dietitian consulted Other chronic conditions: Hyperlipidemia: H/O statin intolerance H/O PVD/ cerebral aneurysm as per records MERY not on CPAP GERD Prediabetes, hemoglobin A1c of 6.1 last July 2023 Chronic anemia, hemoglobin better than baseline likely secondary to hemoconcentration Anxiety/mood disorder/dementia Continue home medications as able DVT Px: Heparin SQ Code Status Full code Disposition Home with home health Admission and Anticipated Discharge Date Admission Date: March 21, 2024 Subjective Patient is seen and examined at bedside No vomiting today Updated patient's son over the phone Denies any chest pain, dyspnea, abdominal pain, dizziness Plan to be discharged home today Review of Systems Review of Systems: All systems reviewed & are unremarkable except as noted in Subjective Physical Exam Physical Exam: Physical Exam: Vitals signs as noted above General Appearance:Moderately built and nourished, no apparent distress Head: normocephalic, Atraumatic Eyes: normal inspection, EOMI Neck: supple, Trachea midline Respiratory/Chest: Normal breath sounds, CTA, no accessory muscle use Cardiovascular: S1, S2, No murmur Abdomen/GI:Soft, Non tender, Bowel sounds present Extremities/Musculoskeletal:normal inspection, no edema Neurologic/Psych:AAOx2, + left facial droop, otherwise grossly no focal deficits. Skin: normal color, warm Results & Data Results & Data Vital Signs (Past 12 Hours) Vital Signs Temp Pulse Pulse Resp BP Pulse Ox O2 Del Method 03/26/24 11:57 36.7 C 86 16 117/74 94 Room Air 03/26/24 07:48 36.7 C 70 20 149/89 H 93 Room Air 03/26/24 06:54 74 03/26/24 04:45 36.7 C 69 18 148/76 H 96 Room Air
--- NOTE | 2024-03-26 12:20 | Discharge Summary ---
Date of Service March 26, 2024 Admission HPI Per Admitting Provider History obtained from patient, family, and records. Patient is a fair historian. Medical history significant for hypertension, hyperlipidemia, PVD, history cerebral aneurysm as per records, MERY not on CPAP as per records, GERD, thyroid cancer status post surgery, postsurgical hypothyroidism, prediabetes, chronic anemia (baseline hemoglobin 10-11), mixed stress/urge incontinence as per records, anxiety/mood disorder, dementia as per records. Last confinement July 2023 for thoracic/lumbar, coccygeal fracture and complicated UTI. 5 days history of achy abdominal pain with nausea, emesis. No diarrhea. Patient denies headache, chest pain, SOB. SBP 170s upon arrival at the ER. 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 [employer] Admission Exam Per Admitting Provider GENERAL: Oriented to place, uncomfortable, no respiratory distress SKIN: Pallor, warm HEENT: Pale palpebral conjunctivae, no ptosis, dry buccal mucosa NECK : Supple, no tenderness CHEST : Decreased breath sounds, no tenderness HEART : RRR, no obvious murmurs ABDOMEN: no distention, central abdominal tenderness EXTREMITIES : No LE swelling, no LE tenderness, no other conspicuous deformities noted NEUROLOGIC : Oriented to place, no facial asymmetry, mild hearing impairment, gait and stance not assessed Principal Diagnosis Complicated urinary tract infection Abnormal thyroid function test Acute metabolic encephalopathy Esophagitis Strokelike symptoms Discharge Data Allergies Allergy/AdvReac Type Severity Reaction Status Date / Time simvastatin AdvReac Intermediate Muscle Pain Verified 07/15/23 03:09 Hexhmhe-TKS-HfD Reductase AdvReac Intermediate MUSCLE Verified 07/15/23 03:09 Inhibitor ACHES-ELEVATED [Jupgrpz-Hyf-Jmu Reductase CK WITH Inhibitor] LIPITOR PER HISTORY tramadol AdvReac Intermediate Confusion Verified 07/15/23 03:46 cefazolin [From Ancef] AdvReac Mild rash on Verified 07/15/23 03:09 abdomen Consultations 03/20/24 23:48 ED Decision to Admit Stat 03/22/24 04:31 Consult Neurology Routine Procedures Performed Laboratory Results WBC 6.00 K/ul (4.8-10.8) 03/25/24 06:23 RBC 3.94 M/uL (4.20-5.40) L 03/25/24 06:23 Hgb 11.1 g/dl (12.0-16.0) L 03/25/24 06:23 Hct 33.9 % (37.0-47.0) L 03/25/24 06:23 MCV 86.0 fL (80.0-100.0) 03/25/24 06:23 MCH 28.2 pg (25.0-34.0) 03/25/24 06:23 MCHC 32.7 g/dL (32.0-36.0) 03/25/24 06:23 RDW Std Deviation 45.7 fL (36.4-46.3) 03/25/24 06:23 RDW Coeff of Brandan 14.6 % (11.5-14.5) H 03/25/24 06:23 Plt Count 292 K/uL (130-400) 03/25/24 06:23 MPV 9.6 fL (9.4-12.4) 03/25/24 06:23 Immature Gran % (Auto) 0.3 % 03/22/24 01:44 Neut % (Auto) 67.9 % 03/22/24 01:44 Lymph % (Auto) 19.8 % 03/22/24 01:44 Lander % (Auto) 9.3 % 03/22/24 01:44 Eos % (Auto) 2.0 % 03/22/24 01:44 Baso % (Auto) 0.7 % 03/22/24 01:44 Neut # (Auto) 4.02 K/uL (1.40-6.50) 03/22/24 01:44 Lymph # (Auto) 1.17 K/uL (1.20-3.40) L 03/22/24 01:44 Lander # (Auto) 0.55 K/uL (0.11-0.59) 03/22/24 01:44 Eos # (Auto) 0.12 K/uL (0.00-0.50) 03/22/24 01:44 Baso # (Auto) 0.04 K/uL (0.00-0.20) 03/22/24 01:44 Immature Gran # (Auto) 0.02 K/uL (0.01-0.20) 03/22/24 01:44 PT 10.9 Seconds (9.0-12.0) 03/22/24 01:44 INR 1.0 (0.9-1.1) 03/22/24 01:44 APTT 27 Seconds (21-31) 03/22/24 01:44 PTT Ratio 1.0 03/22/24 01:44 VBG pH 7.32 (7.36-7.41) L 03/21/24 04:34 VBG pCO2 41 mmHg (38-50) 03/21/24 04:34 VBG pO2 30 mmHg 03/21/24 04:34 VBG HCO3 21 mmol/L 03/21/24 04:34 VBG O2 Saturation < 60.0 % 03/21/24 04:34 VBG Base Excess -4.8 mEq/L 03/21/24 04:34 Sodium 137 mmol/L (136-145) 03/24/24 06:08 Potassium 3.5 mmol/L (3.5-5.1) 03/24/24 06:08 Chloride 108 mmol/L (98-107) H 03/24/24 06:08 Carbon Dioxide 24 mmol/L (21-32) 03/24/24 06:08 Anion Gap 5 (3-11) 03/24/24 06:08 BUN 23 mg/dl (6-23) 03/24/24 06:08 Creatinine 0.99 mg/dl (0.6-1.2) 03/24/24 06:08 Est Cr Clr Drug Dosing 38.2 ml/min 03/24/24 06:08 eGFR 55.53 03/24/24 06:08 BUN/Creatinine Ratio 23.2 (10-20) H 03/24/24 06:08 Glucose 113 mg/dl (70-99(Fasting)) H 03/24/24 06:08 POC Glucose 97 mg/dl (70-99) 03/22/24 01:35 Calcium 8.9 mg/dl (8.6-10.3) 03/24/24 06:08 Magnesium 1.7 mg/dl (1.7-2.4) 03/23/24 07:41 Total Bilirubin 0.8 mg/dl (0.2-1.0) 03/22/24 01:44 AST 21 U/L (13-39) 03/22/24 01:44 ALT 13 U/L (7-52) 03/22/24 01:44 Alkaline Phosphatase 72 U/L (34-104) 03/22/24 01:44 Troponin I High Sens 12.4 pg/ml (0-14) 03/22/24 01:44 Total Protein 6.2 gm/dl (6.0-8.3) D 03/22/24 01:44 Albumin 3.9 gm/dl (3.4-5.0) 03/22/24 01:44 Globulin 2.3 gm/dl (2.5-4.0) L 03/22/24 01:44 Albumin/Globulin Ratio 1.7 (0.9-2) 03/22/24 01:44 Triglycerides 127 mg/dl (0-150) 03/23/24 07:41 Cholesterol 303 mg/dl (0-200) H 03/23/24 07:41 LDL Cholesterol, Calc 217 mg/dl 03/23/24 07:41 VLDL Cholesterol, Calc 25 mg/dl (0-30) 03/23/24 07:41 HDL Cholesterol 61 mg/dl 03/23/24 07:41 Cholesterol/HDL Ratio 5.0 (0-5) 03/23/24 07:41 Lipase 29 U/L (11-82) 03/20/24 21:16 TSH 96.021 uIu/ml (0.300-4.500) H 03/20/24 21:16 Free T4 0.44 ng/dl (0.61-1.60) L 03/20/24 21:16 Urine Color Yellow 03/21/24 01:06 Urine Appearance Clear (Clear) 03/21/24 01:06 Urine pH 6.0 (4.5-7.5) 03/21/24 01:06 Ur Specific Cowley > 1.045 (1.000-1.030) H 03/21/24 01:06 Urine Protein Trace (Negative) H 03/21/24 01:06 Urine Glucose (UA) 1+ (Negative) H 03/21/24 01:06 Urine Ketones 2+ (Negative) H 03/21/24 01:06 Urine Blood Negative (Negative) 03/21/24 01:06 Urine Nitrite Negative (Negative) 03/21/24 01:06 Urine Bilirubin Negative (Negative) 03/21/24 01:06 Urine Urobilinogen Negative (Negative) 03/21/24 01:06 Ur Leukocyte Esterase 1+ (Negative) H 03/21/24 01:06 Urine WBC (Auto) 11-20 /hpf (0-5) H 03/21/24 01:06 Urine RBC (Auto) 0-2 /hpf (0-2) 03/21/24 01:06 U Hyaline Cast (Auto) 0-2 /lpf (0-2) 03/21/24 01:06 U Epithel Cells (Auto) 3-5 /hpf (0-2) H 03/21/24 01:06 Urine Bacteria (Auto) None Seen (None Seen) 03/21/24 01:06 Adenovirus (PCR) Not Detected (NotDetected) 03/20/24 21:16 B. pertussis DNA (PCR) Not Detected (NotDetected) 03/20/24 21:16 B.parapertussis DNA PCR Not Detected (NotDetected) 03/20/24 21:16 C. pneumoniae DNA (PCR) Not Detected (NotDetected) 03/20/24 21:16 Coronavirus OC43 (PCR) Not Detected (NotDetected) 03/20/24 21:16 Coronavirus HKU1 (PCR) Not Detected (NotDetected) 03/20/24 21:16 Coronavirus 229E (PCR) Not Detected (NotDetected) 03/20/24 21:16 SARS-CoV-2 (PCR) Not Detected (NotDetected) 03/20/24 21:16 Coronavirus NL63 (PCR) Not Detected (NotDetected) 03/20/24 21:16 Human Metapneumovir PCR Not Detected (NotDetected) 03/20/24 21:16 Influenza Type A (PCR) Not Detected (NotDetected) 03/20/24 21:16 Influenza Type B (PCR) Not Detected (NotDetected) 03/20/24 21:16 M. pneumoniae (PCR) Not Detected (NotDetected) 03/20/24 21:16 Parainfluenza 1 (PCR) Not Detected (NotDetected) 03/20/24 21:16 Parainfluenza 2 (PCR) Not Detected (NotDetected) 03/20/24 21:16 Parainfluenza 3 (PCR) Not Detected (NotDetected) 03/20/24 21:16 Parainfluenza 4 (PCR) Not Detected (NotDetected) 03/20/24 21:16 RSV (PCR) Not Detected (NotDetected) 03/20/24 21:16 Entero/Rhino (PCR) Not Detected (NotDetected) 03/20/24 21:16 Blood Type A Positive 03/22/24 01:44 Antibody Screen NEGATIVE 03/22/24 01:44 Impressions Abdomen/Pelvis CT 03/20/24 21:36 Exam(s): CT ABDOMEN + PELVIS With Contrast IV Amt: 91 ml optiray 320 EXAM: CT Abdomen and Pelvis With Intravenous Contrast CLINICAL HISTORY: Reason for exam: N/V. TECHNIQUE: Axial computed tomography images of the abdomen and pelvis with intravenous contrast. CTDI is 15.34 mGy and DLP is 671.76 mGy-cm. Automated exposure control was utilized for the study. A dose lowering technique was utilized adhering to the principles of ALARA. CONTRAST: Patient received 91 ml optiray 320 of IV contrast COMPARISON: July 15, 2023 large hiatal hernia FINDINGS: Lung bases: Unremarkable. No mass. No consolidation. Heart: Small pericardial effusion intrahepatic hypodensities measuring up to 1.1 cm in the left hepatic lobe consistent with cysts stable since prior exam. Multiple bilateral renal hypodensities many of which measure less than 1 cm the largest of these is seen in the upper pole left kidney measuring 1 cm in likely represents a cyst. This is stable since prior exam. ABDOMEN: Liver: See above. Gallbladder and bile ducts: Unremarkable. No calcified stones. No ductal dilation. Pancreas: Unremarkable. No mass. No ductal dilation. Spleen: Unremarkable. No splenomegaly. Adrenals: Unremarkable. No mass. Kidneys and ureters: See above. Stomach and bowel: Diverticulosis without evidence of diverticulitis. No obstruction. PELVIS: Appendix: No findings to suggest acute appendicitis. Bladder: Unremarkable. No mass. Reproductive: Unremarkable as visualized. ABDOMEN and PELVIS: Intraperitoneal space: Unremarkable. No free air. No significant fluid collection. Bones/joints: Postoperative changes ORIF left hip fracture. No dislocation. Soft tissues: Unremarkable. Vasculature: Unremarkable. No abdominal aortic aneurysm. Lymph nodes: Unremarkable. No enlarged lymph nodes. IMPRESSION: No acute findings in the abdomen or pelvis. Electronically signed by: Romero Warren MD 03/20/24 23:[address] 03/22/24 01:35 EXAM: CT head/brain wo con CLINICAL HISTORY: neuro deficit, acute stroke suspected TECHNIQUE: Multiple axial images are obtained from the skull base to the vertex without contrast. CT scan was performed according to ALARA (as low as reasonable achievable). 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 No evidence of space occupying lesion, hemorrhage, edema, mass effect, midline shift, extra axial collection, or hydrocephalus is noted. Ventricles, sulci, and basal cisterns are symmetric and normal in size and configuration. Few linear and clumped calcifications are noted in deep white matter of right frontal lobe at ventricular level, likely representing vascular calcifications. No obvious evidence of loss of fontenot-white matter differentiation. Visualized paranasal sinuses and mastoid air cells are well aerated. Orbital contents are within normal limits. Bony structures show diffuse osteopenia. IMPRESSION: 1. CT scan is negative for large territorial ischemic / hemorrhagic stroke. Non contrast CT can be negative in the setting of hyperacute infarct/small ischemic infarct and further evaluation with diffusion weighted MRI is recommended as clinically appropriate. 2. Stable findings compared to previous CT study. Electronically signed by Db Villegas 03-22-2024 02:32 AM Head CTA 03/22/24 01:35 EXAM: CT angio head w con CLINICAL HISTORY: neuro deficit, acute stroke suspected 116 cc opti 320 TECHNIQUE: Contrast enhanced thin slice CT angiography scan of the cerebral vessels was performed with intravenous contrast. Angiographic images were processed, 3D MIP images were acquired for interpretation. Contiguous axial images were obtained. Reformatted coronal and sagittal images were also reviewed. If IV contrast material had not been administered, the likelihood of detecting abnormalities relevant to the patients condition would have been substantially decreased. CT scan was performed according to ALARA (as low as reasonable achievable). COMPARISON: None. FINDINGS: Bilateral internal carotid arteries show eccentric atherosclerotic calcifications in their cavernous portions, without causing significant luminal narrowing. Anatomical variant noted with right posterior cerebral artery. Bilateral vertebral arteries demonstrate few eccentric calcified and non-calcified plaques, causing mild to moderate luminal narrowing on the left side without significant stenosis on the right. Bilateral A1, A2 and M1, M2 segments are normal. Basilar artery shows normal course, caliber and opacification. Visualized venous structures show normal opacification. No evidence of intracranial aneurysm or AV malformation is seen. IMPRESSION: 1. Mild to moderate left vertebral artery focal stenosis with non-occlusive atherosclerotic disease of the intracranial vessels as described. 2. Incidental right posterior cerebral artery variant. Electronically signed by Db Villegas 03-22-2024 02:41 AM Neck CTA 03/22/24 01:35 EXAM: CT angio neck with con CLINICAL HISTORY: neuro deficit, acute stroke suspected 116 cc opti 320 TECHNIQUE: Contrast enhanced thin slice CT angiography scan of the carotid vessels was performed with intravenous contrast. Angiographic images were processed, 3D MIP images were acquired for interpretation. Contiguous axial images were obtained. Reformatted coronal and sagittal images were also reviewed. If IV contrast material had not been administered, the likelihood of detecting abnormalities relevant to the patient's condition would have been substantially decreased. CT scan was performed according to ALARA (as low as reasonably achievable). COMPARISON: CT Neck angio dated 09/18/2020 FINDINGS: Included great vessels of the aortic arch are grossly unremarkable. Few calcified plaques are noted involving distal bilateral common carotid artery extending to the origin of internal and external carotid arteries (more on right side) causing mild luminal narrowing. Approximately 20% stenosis is noted at the level of right carotid bulb. Similar calcified plaques are also noted involving bilateral vertebral arteries not causing any hemodynamically significant stenosis. Tortuous course of bilateral internal carotid arteries is noted. Common carotid artery, carotid Bulb, internal carotid artery, and origin of the external carotid artery are well opacified. Vertebral arteries are well opacified. Jugular veins are well opacified. Included lung apices are grossly unremarkable. IMPRESSION: 1. No evidence of stenosis /occlusion / aneurysm. No evidence of dissection. 2. Few calcified plaques are noted involving bilateral common carotid, internal carotid and vertebral arteries not causing hemodynamically significant stenosis. 3. No significant interval change as compared to prior study. Electronically signed by Db Villegas 03-22-2024 02:39 AM Brain MRI 03/23/24 02:55 MR brain wo con HISTORY: 88 years-old Female L facial droop acute strokelike symptoms COMPARISON: Head CT 03/22/2024, brain MRI 09/18/2020 TECHNIQUE: Multiplanar multisequence MRI of the brain was obtained without IV contrast FINDINGS: No restricted diffusion to suggest acute or subacute infarct. The midline structures appear unremarkable. Study is mildly motion degraded. Shunt changes of the cervical spine with at least mild central canal stenosis at C2-C3 and C3- C4. No acute intracranial hemorrhage, midline shift, abnormal extra-axial collection, hydrocephalus or intra-axial mass. Left frontal calvarial lesion measuring 2.4 cm image 18 series 8. Generally unchanged and favored to be benign. Involutional changes with extensive T2/FLAIR hyperintense foci throughout the white matter. These findings have progressed from prior. Cerebral venous sinuses and major arterial flow voids appear patent. Prior bilateral lens repair. Trace mastoid effusions. IMPRESSION: 1. No acute intracranial abnormality. No acute or subacute infarct. 2. Involutional changes with extensive chronic microvascular ischemic disease, progressively worsened compared to the study from 2020. ACT 112: Negative or not required by law. The above report was generated using voice recognition software. It may contain grammatical, syntax or spelling errors. Electronically signed by: Fabriico Desouza M.D. 03/23/2024 2:[address] 03/23/24 11:33 CT chest diagnostic wo con CT DOSE: 466.66 mGy.cm CLINICAL HISTORY: 88 years-old Female with chest pain/tenderness. Acute chest pain with shortness of breath TECHNIQUE: Multiaxial CT images of the chest were performed without contrast. A dose lowering technique was utilized adhering to the principles of ALARA. COMPARISON: CT chest 10/07/2017, CT abdomen and pelvis 03/20/2024 FINDINGS: No pathologically enlarged lymph nodes. Cardiomegaly with mild coronary artery calcifications. Atherosclerosis of the thoracic aorta without aneurysm. Dilation of the main pulmonary arteries suggestive of pulmonary arterial hypertension. Trace pleural effusions. No pneumothorax. Mild dependent bibasilar atelectasis, greatest in the left lower lobe. Mild pulmonary emphysema. There are no suspicious pulmonary nodules or masses identified. Central airways are patent. No acute upper abdominal abnormality. Stable benign hypodense lesion of the right hepatic lobe. Probable retained contrast in the superior pole collecting system of the right kidney. A renal calculus considered less likely. Large hiatal hernia with diffuse wall thickening of the esophagus. Severe osteoarthritis of the glenohumeral joints, right greater than left. Chronic healed sternal fractures. Chronic compression deformity of the T8 vertebral body. Partially imaged L1 compression deformity better seen on the study from 03/20/2024. Right glenohumeral joint effusion. IMPRESSION: 1. Cardiomegaly with evidence of pulmonary arterial hypertension. 2. Trace pleural effusions with mild bibasilar atelectasis. 3. Large hiatal hernia with diffuse esophageal wall thickening which may represent esophagitis. 4. Right glenohumeral joint effusion, likely secondary to the associated severe osteoarthritis. ACT 112: Negative or not required by law. Electronically signed by: Fabricio Desouza M.D. 03/23/2024 2:31 PM Ordered Studies 03/20/24 21:36 CT Abd and Pelvis [CT abd pelvis IV con only] Stat 03/22/24 01:35 CT angio head w con Stat CT angio neck with con Stat CT head/brain wo con Stat 03/23/24 02:55 MR brain wo con Routine 03/23/24 11:33 CT chest diagnostic wo con Urgent Hospital Course (1) Complicated UTI (urinary tract infection): Acute Complicated UTI H/O mixed stress/urge incontinence as per record Generalized weakness secondary to above --CT ABD: No acute findings in the abdomen or pelvis. -- Urine culture more than 3 types of organisms, all counts, repeat collection recommended -- Repeat urine culture negative -- Empirically on IV Zosyn> transition to Augmentin to complete the course Received IV fluids Patient's family not interested in rehab placement as concern for worsening delirium in the past Plan to discharge home today Abnormal thyroid function test Thyroid cancer S/P surgery Postsurgical hypothyroidism Noncompliance with taking home medication for 1 month Markedly elevated TSH, low free T4 Restarted levothyroxine Needs repeat thyroid function test as outpatient Acute metabolic encephalopathy--POA likely acute metabolic encephalopathy, delirium Strokelike symptoms H/O cerebral aneurysm Left vertebral artery focal stenosis Chronic left facial droop Night hospitalist discussed with Dr. Kauffman ([facility] [facility] Thrombolytic therapy not indicated given history cerebral aneurysm and information obtained from outpatient [facility] neurology note from 2019 mentioning chronic left facial droop of unknown duration. --CT Head:CT scan is negative for large territorial ischemic / hemorrhagic stroke. Non contrast CT can be negative in the setting of hyperacute infarct/small ischemic infarct and further evaluation with diffusion weighted MRI is recommended as clinically appropriate. Stable findings compared to previous CT study. --Head CTA: Mild to moderate left vertebral artery focal stenosis with non- occlusive atherosclerotic disease of the intracranial vessels as described. Incidental right posterior cerebral artery variant. --Neck CTA: No evidence of stenosis /occlusion / aneurysm. No evidence of dissection. Few calcified plaques are noted involving bilateral common carotid, internal carotid and vertebral arteries not causing hemodynamically significant stenosis. No significant interval change as compared to prior study. --MRI Brain:No acute intracranial abnormality. No acute or subacute infarct. Involutional changes with extensive chronic microvascular ischemic disease, progressively worsened compared to the study from 2020. --Lipid panel reviewed --Started on aspirin 81 mg daily -- Appreciate neurology input -Continue PT OT, speech eval- -tolerating regular diet Mental status waxes and wanes Could consider Repatha. Will defer hyperlipidemia management to PCP. Informed patient's family. Reorient frequently to minimize delirium Hypertensive urgency Continue atenolol, losartan Blood pressure stable Atypical chest discomfort Possible esophagitis on CT scan Continue PPI Will add Pepcid as needed May need GI follow-up for EGD as outpatient Right glenohumeral joint effusion Likely due to osteoarthritis Incidental finding on CT Follow-up as outpatient Anion gap metabolic acidosis Resolved with IV fluids Monitor Severe malnutrition BMI 22 Dietitian consulted Other chronic conditions: Hyperlipidemia: H/O statin intolerance H/O PVD/ cerebral aneurysm as per records MERY not on CPAP GERD Prediabetes, hemoglobin A1c of 6.1 last July 2023 Chronic anemia, hemoglobin better than baseline likely secondary to hemoconcentration Anxiety/mood disorder/dementia Continue home medications as able DVT Px: Heparin SQ Code Status Full code Disposition Home with home health Total Time Total Time Spent Total Time Spent (In Minutes): 49 minutes Discharge Plan Discharge Items Patient Disposition: Home - Home Health Services Reason For Visit: HTN URG, COMP UTI Discharge Diagnosis: Complicated urinary tract infection Abnormal thyroid function test Acute metabolic encephalopathy Esophagitis Strokelike symptoms Activity: Per Instructions section Exercise/Sports: Gradually increase as tolerated Non-emergency contact: 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 Please call for appointment Follow-up with the picture engraver for possible upper endoscopy to evaluate esophagitis as outpatient -- Complete the antibiotic course Augmentin as prescribed. --You will need repeat thyroid function test in 4 to 6 weeks to evaluate your thyroid function test. Take your medications regularly as prescribed. -- Discuss with your primary care physician for further management to high cholesterol levels as advised. Seek immediate medical attention if your symptoms reoccur or worsen Please take all medications as instructed on discharge list below. Please call if you have any questions or problems. You can reach a [facility] hospitalist on duty at [facility] 24 hours a day by calling [phone] Pending Studies at Discharge: No Stand-Alone Forms: [facility] [employer], Smoking Cessation Medications and DC Order Prescriptions: New famotidine [Acid Installation Coordinator (famotidine)] 10 mg Tablet 10 mg PO BID PRN (Reason: heartburn) Qty: 30 0RF aspirin 81 mg Tablet,Delayed Release (Dr/Ec) 81 mg PO DAILY Qty: 30 0RF amoxicillin-pot clavulanate 875-125 mg Tablet 1 tab PO BIDM Qty: 3 0RF Continued pantoprazole 40 mg Tablet,Delayed Release (Dr/Ec) 40 mg PO BID Rx Instructions: 07/14/22 PT HAS NOT TAKEN THIS MED FOR APPROX 7 MONTHS DUE TO LACK OF RESOURCES FOR GETTING TO SEE HER PRIMARY PHYSICIAN AND REFILLING THE PRESCRIPTION. atenolol 25 mg tablet 25 mg PO DAILY Rx Instructions: 07/15/23 PT HAS NOT TAKEN THIS MED FOR APPROX 8 MONTHS DUE TO LACK OF RESOURCES FOR SEEING HER PRIMARY PHYSICIAN AND OBTAINING THE PRESCRIPTION. losartan 25 mg tablet 25 mg PO QAM Rx Instructions: 07/15/23 PT HAS NOT TAKEN THIS MED FOR APPROX 7 MONTHS DUE TO LACKNOF RESOURCES FOR GETTING TO SEE HER PRIMARY PHYSICIAN AND REFILLING THE PRESCRIPTION. sertraline 100 mg tablet 100 mg PO QAM Rx Instructions: 07/15/23 PT HAS NOT TAKEN THIS MED FOR APPROX 7 MONTHS DUE TO A LACK OF RESOURCES IN GETTING TO SEE HER PRIMARY PHYSICIAN AND REFILLING THE PRESCRIPTION. acetaminophen [Tylenol Extra Strength] 500 mg Tablet 1,000 mg PO Q8 PRN (Reason: fever or pain) Qty: 30 0RF levothyroxine 112 mcg Tablet 112 mcg PO DAILYBB Rx Instructions: 07/15/23 PT HAS NOT TAKEN THIS MED FOR APPROX 7 MONTHS DUE TO LACK OF RESOURCES FOR GETTING TO SEE HER PRIMARY PHYSICIAN AND REFILLING THE PRESCRIPTION. cholecalciferol (vitamin D3) 25 mcg (1,000 unit) Capsule 25 mcg PO QAM Qty: 30 0RF Discharge Orders: Discharge Order (Routine); Ordered 03/26/24 Ordered By: Jean Arita Admission Data Admit Date/Time: 03/21/24 06:35 Attending Provider: Jean Arita Admit Provider: Hernando Loya Primary Care Provider: Jasbir Cason Other Providers: Hernando Loya; Ktahleen Duffy; Cj Moffett; Kathleen Chappell; Julio Patton; Malik Noguera; Karsten Gunter; Albert Servin; Rajwinder Quiroz; Terence Hou; Allan Maddox; Indy Johnson; Issac Xie; Larissa Katz; April Dowling; Albert Reyna; Michelle Swanson; [facility]
[2024-03-26 14:57] VITALS: BP 110/67; PULSE 86
--- NOTE | 2024-03-27 17:51 | Coding Query ---
MALNUTRITION To promote full compliance with coding requirements relating to patient care, physician participation is requested in all cases of inpatient coder uncertainty. Please assist us with the question(s) below: 03/21 note: MODERATE malnutrition--Moderate inadequate intake; severe weight loss; mild loss of body fat; mild muscle loss 03/22 follow up-questionable admission weight of [address] an X within the parenthesis (x). If other, please document: ATTENDING notes: Severe malnutrition BMI 22 Dietitian consulted Due to conflicting documenttion of the degree of malnutrition, can you please confirm? If possible, please check the box that provides a more specific diagnosis: ( ) Mild malnutrition ( x) Moderate malnutrition ( ) Severe malnutrition ( ) Protein malnutrition (kwashiorkor) ( ) Severe protein calorie malnutrition ( ) Protein calorie malnutrition, unspecified ( ) Other (please specify): Was this diagnosis present on admission? Please place an X within the parenthesis (x). ( x) Present on admission ( ) Not present on admission ( ) Unable to be clinically determined Thank you Candace ODONNELL
== END 2024-03-26 15:20 | disposition home health service (06) | DRG 689 ==
LOC: EDINP 20:54 → ED 20:54 → 2N 03-21 01:49 → SUATTDRO 03-21 06:35 → 2N 03-21 15:05

== ENCOUNTER 2025-03-18 18:57 | Observation (INO) ==
[2025-03-18 19:28] LABS: Hematocrit (blood only) 37.4 % (37.0-47.0); Hemoglobin 12.5 g/dl (12.0-16.0); Immature Granulocytes # (auto) 0.02 K/uL (0.01-0.20); Immature Granulocytes % (auto) 0.4 %; Mean Corpuscular Hemoglobin 29.6 pg (25.0-34.0); Mean Corpuscular Volume 88.4 fL (80.0-100.0); Platelet Count 272 K/uL (130-400); RDW Standard Deviation 51.5 fL (36.4-46.3); Red Blood Count 4.23 M/uL (4.20-5.40); White Blood Count 5.37 K/ul (4.8-10.8)
[2025-03-18 19:48] LABS: Alanine Aminotransferase 13 U/L (7-52); Albumin Globulin Ratio 1.3 (0.9-2); Albumin Level 4.1 gm/dl (3.4-5.0); Alkaline Phosphatase 67 U/L (34-104); Anion Gap 9 (3-11); Bilirubin,Total 0.6 mg/dl (0.2-1.0); Blood Urea Nitrogen 20 mg/dl (6-23); Calcium 10.3 mg/dl (8.6-10.3); Carbon Dioxide 25 mmol/L (21-32); Chloride 102 mmol/L (98-107); Globulin 3.2 gm/dl (2.5-4.0); Glucose 112 mg/dl (70-99(Fasting)); Potassium 4.1 mmol/L (3.5-5.1); Sodium 136 mmol/L (136-145); Total Protein 7.3 gm/dl (6.0-8.3)
[2025-03-18 20:00] LABS: INR 1.0 (0.9-1.1); Partial Thromboplastin Time 28 Seconds (21-31); Prothrombin Time 10.9 Seconds (9.0-12.0)
[2025-03-18 21:50] LABS: Magnesium 1.9 mg/dl (1.7-2.4)
[2025-03-18 23:09] LABS: Appearance Urine Cloudy (Clear); Bacteria Urine Automated 4+ (None Seen); Cast Urine Automated 0-2 /lpf (0-2); Epithelial Cell Urine Auto 0-2 /hpf (0-2); Glucose Urine UA Negative (Negative); RBC Urine Automated 0-2 /hpf (0-2)
--- NOTE | 2025-03-18 23:11 | Emergency Department Note ---
Impression & Plan Weakness, Anxiety, Acute UTI (urinary tract infection) ED Provider Note ED Provider Note NAME: BRIGIDO LITTLE AGE:89 SEX: Female : 1935 ARRIVES VIA: Private vehicle INFORMANT: Patient, family ED PROVIDER(s): Koki Dominguez DO CHIEF COMPLAINT: Anxiety, weakness, fatigue HPI: This is an 89-year-old female brought in by family due to concern for changes recently and possible UTI. They state over the course of the last several days she has had increased fatigue weakness and seemed to perseverate on a fear of being alone in her home which had previously been her choice. She said things that sounded unusual for her according to family and they became concerned for urinary tract infection as they recalled her being confused previously when she had a UTI. Family also concerned that she does not seem to be taking her medications as prescribed. Family states that they set out her medications in cases 2 weeks at a time however when they go and check on her she says she takes them but they see them in the pill cases yet. I think patient has had a decline in recent years in terms of mobility but has continued to desire to live alone. Son states he and multiple other family members are all close by and check in on her frequently. No recent falls or injury to his knowledge. She denies any abdominal pain, back pain normal, fevers, or URI symptoms. She states she does have chronic left knee pain and swelling. Son states that knee was replaced by orthopedics 8 or 9 years ago. It has been seen on follow-up by them. PAST MEDICAL HISTORY:See Below PAST SURGICAL HISTORY:See Below FAMILY HISTORY:See Below SOCIAL HISTORY:See Below HOME MEDICATIONS:See Below ALLERGIES:See Below VITALS:See Below PHYSICAL EXAMINATION: GENERAL: alert, well appearing, well nourished, no distress, non-toxic EYE EXAM: normal conjunctiva, PERRL and EOM's grossly intact OROPHARYNX: no exudate, no erythema, lips, buccal mucosa, and tongue normal and mucous membranes are moist NECK: supple, no nuchal rigidity, no adenopathy, non-tender LUNGS: Clear to auscultation. Normal chest wall mechanics, no w/r/r HEART: no murmurs, S1 normal and S2 normal ABDOMEN: abdomen soft, non-tender, normo-active bowel sounds, no masses, no rebound or guarding. BACK: Back is symmetrical on inspection and there is no deformity, no midline tenderness, no CVA tenderness. SKIN: no rashes, petechiae, orbruising UPPER EXTREMITIES: upper extremities are grossly normal. FROM, nml pulses b/l. LOWER EXTREMITIES: No pitting edema. FROM, nml pulses b/l. Swelling noted to the left knee which son states is chronic NEURO EXAM: Normal sensorium, cranial nerves II-XII grossly intact, normal speech, no facial droop,nogross weakness of arms, no gross weakness of legs. Gross sensation intact. No ataxia. Vital Signs: reviewed and remarkable Differential Diagnosis: dehydration, stroke, anemia, hypoglycemia, hyponatremia, hypernatremia, urinary tract infection, pneumonia, bronchitis, sepsis, gastroenteritis, additional abdominal pathology, metabolic abnormalities, as well as others were considered MEDICAL DECISION MAKING: This is an 89-year-old female who presents to the emergency department due to concern by family for increased weakness/fatigue, mild intermittent confusion, and possible UTI. They states she has had similar presentations before and found to have a urinary tract infection. They are also concerned about her compliance with taking her medications appropriately. Patient was afebrile and hemodynamically stable on arrival. She had no complaints of pain or nausea, no difficulty breathing, and had a nonfocal neuroexam although does note chronic bilateral lower extremity weakness which the son at bedside confirms is chronic. Labs drawn and sent, IV established, the patient was monitored on telemetry. Urine collected and sent for analysis. Straight cath urine specimen was abnormal and in light of age, prior history, and comorbid conditions, patient was started on IV antibiotics after review of prior urine cultures. She was started on additional IV fluids. After further discussion with the son at bedside, case discussed with the hospitalist team for additional evaluation and management. Consultation(s): 6589: Discussed with Dr. Victor, [facility] hospitalist team, for additional evaluation and management. ER Treatment Provided: See below Diagnostics Interpreted By Me: -Cardiac Monitoring: An order was placed for continuous cardiac monitoring. The monitor shows a rate of 70 with normal sinus rhythm. -Laboratory studies: As stated above and show below. Triage Nursing Note Reviewed Prior/Outside Records Reviewed -prior urine cultures reviewed Past Med/Surg History Problem List (Updated 03/19/25 @ 00:00 by Koki Dominguez DO) Acute UTI (urinary tract infection) (Acute) Anxiety (Acute) Weakness (Acute) Complicated UTI (urinary tract infection) Elevated TSH (Acute) Acute dehydration (Acute) Generalized weakness (Acute) Nausea & vomiting (Acute) Neurogenic claudication due to lumbar spinal stenosis Encephalopathy Generalized weakness (Acute) Ambulatory dysfunction (Acute) Nausea & vomiting (Acute) Status post-operative repair of hip fracture Hypothyroidism UTI (urinary tract infection) Status post fall Hip fracture, left (Acute) Left leg pain (Acute) Fracture of tibial plateau (Acute) Acute head trauma (Acute) Asymptomatic hypertensive urgency Left medial tibial plateau fracture Symptoms of cerebrovascular accident (CVA) (Acute) Dizziness Ambulatory dysfunction Syncope Thyroid cancer Depression CKD (chronic kidney disease), stage III Panic disorder (Chronic 12/26/10) Esophagitis (Chronic 12/26/10) Near syncope (Acute) History of papillary adenocarcinoma of thyroid (Chronic) Hypertensive heart disease (Chronic) Cerebral aneurysm (Chronic) "[facility] 07/22/13 3 mm fusiform aneurysm takeoff right 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" Status post appendectomy (Chronic) Status post thyroidectomy (Chronic) Right knee DJD Medical History Bacteremia Infective endocarditis Leukocytosis Acute on chronic renal insufficiency Sepsis Acute kidney injury superimposed on chronic kidney disease Infection Sepsis PSVT (paroxysmal supraventricular tachycardia) Left leg swelling Fall Thyroid cancer Depression MERY (obstructive sleep apnea) HLD (hyperlipidemia) HTN (hypertension) CKD (chronic kidney disease), stage III Cerebral aneurysm "[facility] 07/22/13 3 mm fusiform aneurysm takeoff right 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" Hypothyroidism Hypertensive heart disease History of papillary adenocarcinoma of thyroid Esophagitis (12/26/10) Panic disorder (12/26/10) Surgical History Status post thyroidectomy Status post appendectomy Family History Other Diabetes Hypertension Social History Smoking Status: Never smoker Second Hand Exposure: No; Do You Dip or Chew Tobacco: No; Hx Alcohol Use: No Hx Substance Use: No Preferred Language: Welsh Communication Ability: Effective Salvage Clerk Required: No Beliefs That Will Affect Care: None marital status: / Current Living Situation: Alone Current Living Situation Comment: Lives at home alone How many Children do You have: 3 Feels Safe at Home: Yes Assistive Devices: Walker and Wheelchair Allergies Allergies Allergy/AdvReac Type Severity Reaction Status Date / Time simvastatin AdvReac Intermediate Muscle Pain Verified 07/15/23 03:09 Nfoncrm-XPC-IxA Reductase AdvReac Intermediate MUSCLE Verified 07/15/23 03:09 Inhibitor ACHES-ELEVATED [Ueqvnpi-Mkt-Bto Reductase CK WITH Inhibitor] LIPITOR PER HISTORY tramadol AdvReac Intermediate Confusion Verified 07/15/23 03:46 cefazolin [From Anc] AdvReac Mild rash on Verified 07/15/23 03:09 abdomen Home Meds Home Medications Medication Instructions Recorded Confirmed pantoprazole 40 mg tablet,delayed 40 mg PO BID 10/07/18 03/21/24 release atenolol 25 mg tablet 25 mg PO DAILY 01/06/21 03/21/24 losartan 25 mg tablet 25 mg PO QAM 02/04/21 03/21/24 sertraline 100 mg tablet 100 mg PO QAM 02/04/21 03/21/24 levothyroxine 112 mcg tablet 112 mcg PO DAILYBB 07/13/23 03/21/24 Previous Rx's Medication Instructions Recorded acetaminophen 500 mg tablet 1,000 mg (2 x 500 mg) PO Q8 PRN 02/28/21 (Tylenol Extra Strength) fever or pain #30 tabs cholecalciferol (vitamin D3) 25 25 mcg PO QAM #30 caps 07/30/23 mcg (1,000 unit) capsule amoxicillin 875 mg-potassium 1 tab PO BIDM #3 tabs 03/26/24 clavulanate 125 mg tablet aspirin 81 mg tablet,delayed 81 mg PO DAILY #30 tabs 03/26/24 release famotidine 10 mg tablet (Acid 10 mg PO BID PRN heartburn #30 tabs 03/26/24 Back Padder (famotidine)) Results & Data (ED) Vital Signs Vital Signs - 24 hr 03/18/25 18:59 03/18/25 21:03 03/18/25 22:56 Temperature 36.5 C Temperature Source Oral Pulse Rate 81 64 Pulse Rate [Apical] 64 Respiratory Rate 17 16 Respiratory Effort / Characteristics Non-Labored Spontaneous Respiratory Depth Normal Respiratory Pattern Regular Blood Pressure 171/104 H Blood Pressure [Right Arm] 147/85 H Blood Pressure Mean 126 Blood Pressure Mean [Right Arm] 105 Pulse Oximetry 96 97 Oxygen Delivery Method Room Air Room Air Sepsis Recent Fever Within 48 Hours No Sepsis New/Unexplained Change in Mental Status No Sepsis Action Taken by Nursing No Action Required 03/18/25 23:00 03/19/25 01:24 Temperature 36.5 C Temperature Source Oral Pulse Rate 59 L Pulse Rate [Apical] 60 Respiratory Rate 17 Respiratory Effort / Characteristics Non-Labored Spontaneous Respiratory Depth Normal Respiratory Pattern Regular Blood Pressure Blood Pressure [Right Arm] 158/86 H Blood Pressure Mean Blood Pressure Mean [Right Arm] 110 Pulse Oximetry 97 Oxygen Delivery Method Room Air Sepsis Recent Fever Within 48 Hours Sepsis New/Unexplained Change in Mental Status Sepsis Action Taken by Nursing Laboratory Data 03/18/25 19:11 03/18/25 19:11 Lab Results 03/18/25 03/18/25 Range/Units 19:11 22:45 WBC 5.37 (4.8-10.8) K/ul RBC 4.23 (4.20-5.40) M/uL Hgb 12.5 (12.0-16.0) g/dl Hct 37.4 (37.0-47.0) % MCV 88.4 (80.0-100.0) fL MCH 29.6 (25.0-34.0) pg MCHC 33.4 (32.0-36.0) g/dL RDW Std Deviation 51.5 H (36.4-46.3) fL RDW Coeff of Brandan 15.9 H (11.5-14.5) % Plt Count 272 (130-400) K/uL MPV 8.8 L (9.4-12.4) fL Immature Gran % (Auto) 0.4 % Neut % (Auto) 61.0 % Lymph % (Auto) 25.9 % [place] % (Auto) 7.1 % Eos % (Auto) 4.7 % Baso % (Auto) 0.9 % Neut # (Auto) 3.28 (1.40-6.50) K/uL Lymph # (Auto) 1.39 (1.20-3.40) K/uL [place] # (Auto) 0.38 (0.11-0.59) K/uL Eos # (Auto) 0.25 (0.00-0.50) K/uL Baso # (Auto) 0.05 (0.00-0.20) K/uL Immature Gran # (Auto) 0.02 (0.01-0.20) K/uL PT 10.9 (9.0-12.0) Seconds INR 1.0 (0.9-1.1) APTT 28 (21-31) Seconds PTT Ratio 1.0 Sodium 136 (136-145) mmol/L Potassium 4.1 (3.5-5.1) mmol/L Chloride 102 (98-107) mmol/L Carbon Dioxide 25 (21-32) mmol/L Anion Gap 9 (3-11) BUN 20 (6-23) mg/dl Creatinine 1.13 (0.6-1.2) mg/dl Est Cr Clr Drug Dosing Not Reportable eGFR 47.09 BUN/Creatinine Ratio 17.7 (10-20) Glucose 112 H (70-99(Fasting)) mg/dl Calcium 10.3 (8.6-10.3) mg/dl Magnesium 1.9 (1.7-2.4) mg/dl Total Bilirubin 0.6 (0.2-1.0) mg/dl AST 28 (13-39) U/L ALT 13 (7-52) U/L Alkaline Phosphatase 67 (34-104) U/L Troponin I High Sens 4.4 (0-14) pg/ml Total Protein 7.3 (6.0-8.3) gm/dl Albumin 4.1 (3.4-5.0) gm/dl Globulin 3.2 (2.5-4.0) gm/dl Albumin/Globulin Ratio 1.3 (0.9-2) TSH 417.273 H (0.300-4.500) uIu/ml Free T4 < 0.32 L (0.61-1.60) ng/dl Urine Color Yellow Urine Appearance Cloudy A (Clear) Urine pH 6.0 (4.5-7.5) Ur Specific [place] 1.019 (1.000-1.030) Urine Protein Trace H (Negative) Urine Glucose (UA) Negative (Negative) Urine Ketones Trace H (Negative) Urine Blood Negative (Negative) Urine Nitrite Negative (Negative) Urine Bilirubin Negative (Negative) Urine Urobilinogen Negative (Negative) Ur Leukocyte Esterase 2+ H (Negative) Urine WBC (Auto) 6-10 H (0-5) /hpf Urine RBC (Auto) 0-2 (0-2) /hpf U Hyaline Cast (Auto) 0-2 (0-2) /lpf U Epithel Cells (Auto) 0-2 (0-2) /hpf Urine Bacteria (Auto) 4+ H (None Seen) Calcium Oxalate Crystal Present A (None Prsent) Urine Comment Administered Medications Sodium Chloride (Nss) 1,000 mls @ 125 mls/hr IV .Q8H SABA Stop: 03/21/25 23:14 Last Admin: 03/19/25 00:14 Dose: 125 mls/hr Documented By: ESTEBAN Discontinued Medications Ceftriaxone Sodium (Rocephin) 2,000 mg in 50 mls @ 100 mls/hr IV NOW STA Stop: 03/18/25 23:40 Last Infusion: 03/19/25 01:20 Dose: Infused Documented By: Admin: 03/19/25 00:14 Dose: 100 mls/hr Documented By: ESTEBAN Discharge Plan Visit Data Chief Complaint: Urinary Symptoms Stated Complaint: UTI POSSIBLY ED Provider: Koki Dominguez Discharge Problem: Weakness, Anxiety, Acute UTI (urinary tract infection) Patient Disposition: Being Evaluated by Hospitalist Condition: Good Forms Stand Alone Forms: My [employer] Prescriptions Prescriptions: No Action pantoprazole 40 mg Tablet,Delayed Release (Dr/Ec) 40 mg PO BID Rx Instructions: 07/14/22 PT HAS NOT TAKEN THIS MED FOR APPROX 7 MONTHS DUE TO LACK OF RESOURCES FOR GETTING TO SEE HER PRIMARY PHYSICIAN AND REFILLING THE PRESCRIPTION. atenolol 25 mg tablet 25 mg PO DAILY Rx Instructions: 07/15/23 PT HAS NOT TAKEN THIS MED FOR APPROX 8 MONTHS DUE TO LACK OF RESOURCES FOR SEEING HER PRIMARY PHYSICIAN AND OBTAINING THE PRESCRIPTION. losartan 25 mg tablet 25 mg PO QAM Rx Instructions: 07/15/23 PT HAS NOT TAKEN THIS MED FOR APPROX 7 MONTHS DUE TO LACKNOF RESOURCES FOR GETTING TO SEE HER PRIMARY PHYSICIAN AND REFILLING THE PRESCRIPTION. sertraline 100 mg tablet 100 mg PO QAM Rx Instructions: 07/15/23 PT HAS NOT TAKEN THIS MED FOR APPROX 7 MONTHS DUE TO A LACK OF RESOURCES IN GETTING TO SEE HER PRIMARY PHYSICIAN AND REFILLING THE PRESCRIPTION. acetaminophen [Tylenol Extra Strength] 500 mg Tablet 1,000 mg PO Q8 PRN (Reason: fever or pain) Qty: 30 0RF famotidine [Acid Back Padder (famotidine)] 10 mg Tablet 10 mg PO BID PRN (Reason: heartburn) Qty: 30 0RF aspirin 81 mg Tablet,Delayed Release (Dr/Ec) 81 mg PO DAILY Qty: 30 0RF amoxicillin-pot clavulanate 875-125 mg Tablet 1 tab PO BIDM Qty: 3 0RF levothyroxine 112 mcg Tablet 112 mcg PO DAILYBB Rx Instructions: 07/15/23 PT HAS NOT TAKEN THIS MED FOR APPROX 7 MONTHS DUE TO LACK OF RESOURCES FOR GETTING TO SEE HER PRIMARY PHYSICIAN AND REFILLING THE PRESCRIPTION. cholecalciferol (vitamin D3) 25 mcg (1,000 unit) Capsule 25 mcg PO QAM Qty: 30 0RF Referrals Referrals: Jasbir Cason DO [Primary Care Provider] -
[2025-03-19 00:03] LABS: T4 Free Thyroxine < 0.32 ng/dl (0.61-1.60)
[2025-03-19] MEDS: cefTRIAXone SODIUM 2,000 MG/50 ML BAG IV STA (00:14)
[2025-03-19] MEDS: SODIUM CHLORIDE 0.9% 1,000 ML IV SCH ×2 (00:14→21:59)
--- NOTE | 2025-03-19 00:15 | History & Physical Report ---
Date of Service March 19, 2025 Assessment & Plan (1) Acute UTI (urinary tract infection): (2) Anxiety: Plan 89yo female presenting from home with concern for being unable to manage at home. She lives alone currently, has family that checks on her. Has not been taking her medications #Acute UTI -Ceftriaxone #Anxiety - patient has been off of her Sertraline. Is to take 100mg. Uncertain when the last time she routinely was taking her medications -Will restart Sertraline at 50mg po daily x 1 week then increase to 100mg daily #Hypothyroidism - markedly elevated TSH with undetectable T4 -Resume Synthroid -Followup TFTs outpatient #Hypertension -Continue Atenolol and Losartan #GERD -Continue Protonix 40mg po BID #Failure to thrive -PT/OT evaluation -Case management evaluation History of Present Illness Chief Complaint: unable to manage at home Primary Care Provider: Jasbir Cason DO Kathia Burnett is a pleasant 89yo female with history of HTN, HLP presenting from home with concern for being unable to manage at home alone. Patient lives by herself. Has family that resides nearby and checks on her. However, recently she feels that she has been alone more often. She does not take her medications. She does not cook anymore but states that she tries to eat cold things that don't need to be cooked. Increased fatigue, weakness and some anxiety about being alone in her home. Occasional pain in her legs otherwise no complaints. Allergies Allergy/AdvReac Type Severity Reaction Status Date / Time simvastatin AdvReac Intermediate Muscle Pain Verified 07/15/23 03:09 [id number] Reductase AdvReac Intermediate MUSCLE Verified 07/15/23 03:09 Inhibitor ACHES-ELEVATED [Plhhdcs-Pwt-Qrj Reductase CK WITH Inhibitor] LIPITOR PER HISTORY tramadol AdvReac Intermediate Confusion Verified 07/15/23 03:46 cefazolin [From Ancef] AdvReac Mild rash on Verified 07/15/23 03:09 abdomen Home Medications Medication Instructions Recorded Confirmed Type pantoprazole 40 mg tablet,delayed 40 mg PO BID 10/07/18 03/21/24 History release atenolol 25 mg tablet 25 mg PO DAILY 01/06/21 03/21/24 History losartan 25 mg tablet 25 mg PO QAM 02/04/21 03/21/24 History sertraline 100 mg tablet 100 mg PO QAM 02/04/21 03/21/24 History acetaminophen 500 mg tablet 1,000 mg (2 x 500 mg) PO Q8 PRN 02/28/21 03/21/24 Rx (Tylenol Extra Strength) fever or pain #30 tabs levothyroxine 112 mcg tablet 112 mcg PO DAILYBB 07/13/23 03/21/24 History cholecalciferol (vitamin D3) 25 25 mcg PO QAM #30 caps 07/30/23 03/21/24 Rx mcg (1,000 unit) capsule amoxicillin 875 mg-potassium 1 tab PO BIDM #3 tabs 03/26/24 Rx clavulanate 125 mg tablet aspirin 81 mg tablet,delayed 81 mg PO DAILY #30 tabs 03/26/24 Rx release famotidine 10 mg tablet (Acid 10 mg PO BID PRN heartburn #30 tabs 03/26/24 Rx Music Therapist (famotidine)) Past Med/Surg History Problem List Acute UTI (urinary tract infection) (Acute) Anxiety (Acute) Weakness (Acute) Complicated UTI (urinary tract infection) Elevated TSH (Acute) Acute dehydration (Acute) Generalized weakness (Acute) Nausea & vomiting (Acute) Neurogenic claudication due to lumbar spinal stenosis Encephalopathy Generalized weakness (Acute) Ambulatory dysfunction (Acute) Nausea & vomiting (Acute) Status post-operative repair of hip fracture Hypothyroidism UTI (urinary tract infection) Status post fall Hip fracture, left (Acute) Left leg pain (Acute) Fracture of tibial plateau (Acute) Acute head trauma (Acute) Asymptomatic hypertensive urgency Left medial tibial plateau fracture Symptoms of cerebrovascular accident (CVA) (Acute) Dizziness Ambulatory dysfunction Syncope Thyroid cancer Depression CKD (chronic kidney disease), stage III Panic disorder (Chronic 12/26/10) Esophagitis (Chronic 12/26/10) Near syncope (Acute) History of papillary adenocarcinoma of thyroid (Chronic) Hypertensive heart disease (Chronic) Cerebral aneurysm (Chronic) "[facility] 07/22/13 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" Status post appendectomy (Chronic) Status post thyroidectomy (Chronic) Right knee DJD Medical History Bacteremia Infective endocarditis Leukocytosis Acute on chronic renal insufficiency Sepsis Acute kidney injury superimposed on chronic kidney disease Infection Sepsis PSVT (paroxysmal supraventricular tachycardia) Left leg swelling Fall MERY (obstructive sleep apnea) HLD (hyperlipidemia) HTN (hypertension) Family History Other Diabetes Hypertension Social History Smoking Status: Never smoker Second Hand Exposure: No; Do You Dip or Chew Tobacco: No; Hx Alcohol Use: No Hx Substance Use: No Preferred Language: Occitan Communication Ability: Effective Manager Part Required: No Beliefs That Will Affect Care: None marital status: / Current Living Situation: Alone Current Living Situation Comment: Lives at home alone How many Children do You have: 3 Other Information That Helps Us Care for You: No Feels Safe at Home: Yes Safety Concerns: Feels Safe At This Time Assistive Devices: Denture - Upper, Glasses and Wheelchair Review of Systems Review of Systems: All systems reviewed & are unremarkable except as noted in HPI & below Physical Exam Physical Exam: General: patient resting comfortably, NAD, non-toxic in appearance, AA&O x 4 Skin: warm, dry, intact, no rashes or lesions HEENT: NC/AT, PERRL, EOMI, anicteric sclera, conjunctiva without injection, external ear normal to inspection and nontender, nares patent, moist mucus membranes, dentition intact, no oropharyngeal lesions, neck supple, trachea midline, no LAD, no thyromegaly, no JVD Heart: +S1/S2, regular, no m/r/g Lungs: equal air entry bilaterally, no rales/rhonchi/wheezes Abd: +BS, soft, NT/ND, no masses/organomegaly/ascites Ext: warm, 2+ pulses in UE/LE bilaterally, no clubbing/cyanosis or edema Neuro: nonfocal, patient AA&O x 4, speech intact, no facial droop, moving all extremities on command with equal strength 5/5 Results & Data Results & Data Vital Signs (Past 12 Hours) Vital Signs Temp Pulse Pulse Resp BP BP Pulse Ox 03/18/25 23:00 36.5 C 60 17 158/86 H 97 03/18/25 22:56 64 16 147/85 H 97 03/18/25 21:03 64 03/18/25 18:59 36.5 C 81 17 171/104 H 96 O2 Del Method 03/18/25 23:00 Room Air 03/18/25 22:56 Room Air 03/18/25 21:03 03/18/25 18:59 Room Air Laboratory Results Laboratory Results WBC 5.37 K/ul (4.8-10.8) 03/18/25 19:11 RBC 4.23 M/uL (4.20-5.40) 03/18/25 19:11 Hgb 12.5 g/dl (12.0-16.0) 03/18/25 19:11 Hct 37.4 % (37.0-47.0) 03/18/25 19:11 MCV 88.4 fL (80.0-100.0) 03/18/25 19:11 MCH 29.6 pg (25.0-34.0) 03/18/25 19:11 MCHC 33.4 g/dL (32.0-36.0) 03/18/25 19:11 RDW Std Deviation 51.5 fL (36.4-46.3) H 03/18/25 19:11 RDW Coeff of Brandan 15.9 % (11.5-14.5) H 03/18/25 19:11 Plt Count 272 K/uL (130-400) 03/18/25 19:11 MPV 8.8 fL (9.4-12.4) L 03/18/25 19:11 Immature Gran % (Auto) 0.4 % 03/18/25 19:11 Neut % (Auto) 61.0 % 03/18/25 19:11 Lymph % (Auto) 25.9 % 03/18/25 19:11 [place] % (Auto) 7.1 % 03/18/25 19:11 Eos % (Auto) 4.7 % 03/18/25 19:11 Baso % (Auto) 0.9 % 03/18/25 19:11 Neut # (Auto) 3.28 K/uL (1.40-6.50) 03/18/25 19:11 Lymph # (Auto) 1.39 K/uL (1.20-3.40) 03/18/25 19:11 [place] # (Auto) 0.38 K/uL (0.11-0.59) 03/18/25 19:11 Eos # (Auto) 0.25 K/uL (0.00-0.50) 03/18/25 19:11 Baso # (Auto) 0.05 K/uL (0.00-0.20) 03/18/25 19:11 Immature Gran # (Auto) 0.02 K/uL (0.01-0.20) 03/18/25 19:11 PT 10.9 Seconds (9.0-12.0) 03/18/25 19:11 INR 1.0 (0.9-1.1) 03/18/25 19:11 APTT 28 Seconds (21-31) 03/18/25 19:11 PTT Ratio 1.0 03/18/25 19:11 Sodium 136 mmol/L (136-145) 03/18/25 19:11 Potassium 4.1 mmol/L (3.5-5.1) 03/18/25 19:11 Chloride 102 mmol/L (98-107) 03/18/25 19:11 Carbon Dioxide 25 mmol/L (21-32) 03/18/25 19:11 Anion Gap 9 (3-11) 03/18/25 19:11 BUN 20 mg/dl (6-23) 03/18/25 19:11 Creatinine 1.13 mg/dl (0.6-1.2) 03/18/25 19:11 Est Cr Clr Drug Dosing Not Reportable 03/18/25 19:11 eGFR 47.09 03/18/25 19:11 BUN/Creatinine Ratio 17.7 (10-20) 03/18/25 19:11 Glucose 112 mg/dl (70-99(Fasting)) H 03/18/25 19:11 Calcium 10.3 mg/dl (8.6-10.3) 03/18/25 19:11 Magnesium 1.9 mg/dl (1.7-2.4) 03/18/25 19:11 Total Bilirubin 0.6 mg/dl (0.2-1.0) 03/18/25 19:11 AST 28 U/L (13-39) 03/18/25 19:11 ALT 13 U/L (7-52) 03/18/25 19:11 Alkaline Phosphatase 67 U/L (34-104) 03/18/25 19:11 Troponin I High Sens 4.4 pg/ml (0-14) 03/18/25 19:11 Total Protein 7.3 gm/dl (6.0-8.3) 03/18/25 19:11 Albumin 4.1 gm/dl (3.4-5.0) 03/18/25 19:11 Globulin 3.2 gm/dl (2.5-4.0) 03/18/25 19:11 Albumin/Globulin Ratio 1.3 (0.9-2) 03/18/25 19:11 TSH 417.273 uIu/ml (0.300-4.500) H 03/18/25 19:11 Free T4 < 0.32 ng/dl (0.61-1.60) L 03/18/25 19:11 Urine Color Yellow 03/18/25 22:45 Urine Appearance Cloudy (Clear) A 03/18/25 22:45 Urine pH 6.0 (4.5-7.5) 03/18/25 22:45 Ur Specific [place] 1.019 (1.000-1.030) 03/18/25 22:45 Urine Protein Trace (Negative) H 03/18/25 22:45 Urine Glucose (UA) Negative (Negative) 03/18/25 22:45 Urine Ketones Trace (Negative) H 03/18/25 22:45 Urine Blood Negative (Negative) 03/18/25 22:45 Urine Nitrite Negative (Negative) 03/18/25 22:45 Urine Bilirubin Negative (Negative) 03/18/25 22:45 Urine Urobilinogen Negative (Negative) 03/18/25 22:45 Ur Leukocyte Esterase 2+ (Negative) H 03/18/25 22:45 Urine WBC (Auto) 6-10 /hpf (0-5) H 03/18/25 22:45 Urine RBC (Auto) 0-2 /hpf (0-2) 03/18/25 22:45 U Hyaline Cast (Auto) 0-2 /lpf (0-2) 03/18/25 22:45 U Epithel Cells (Auto) 0-2 /hpf (0-2) 03/18/25 22:45 Urine Bacteria (Auto) 4+ (None Seen) H 03/18/25 22:45 Calcium Oxalate Crystal Present (None Prsent) A 03/18/25 22:45 Urine Comment 03/18/25 22:45 PG Care Time/CCT Total # of Minutes Spent Total Time Spent with Patient: Total time spent is greater than 50% in coordination of care (as documented) at patient's floor/unit and/or counseling patient: Coding Level of Care Code 76390 INT INP/OBS CARE 375MIN Diagnoses Acute UTI (urinary tract infection) N39.0 Anxiety F41.9
[2025-03-19] MEDS ORDERED: ONDANSETRON INJ 2 MG/ML 2 ML VIAL IV PRN (02:03)
[2025-03-19] MEDS: MELATONIN 3 MG TAB PO PRN (03:02)
[2025-03-19] MEDS: LEVOTHYROXINE SODIUM 112 MCG TABLET PO SCH (06:16)
[2025-03-19] MEDS: ASPIRIN 81 MG ECTAB PO SCH (09:59)
[2025-03-19] MEDS: ATENOLOL 25 MG TABLET PO SCH (10:00)
[2025-03-19] MEDS: SERTRALINE HCL 50 MG TABLET PO SCH (10:00)
[2025-03-19] MEDS: LOSARTAN POTASSIUM 25 MG TAB PO SCH (10:00)
[2025-03-19] MEDS: ACETAMINOPHEN 500 MG TAB PO PRN (10:13)
--- NOTE | 2025-03-19 14:57 | Hospitalist Progress Note ---
Date of Service March 19, 2025 Assessment & Plan (1) Acute UTI (urinary tract infection): (2) Anxiety: Plan 89 y/o female presenting from home with concern for being unable to manage at home. She lives alone currently, has family that checks on her. Has not been taking her medications consistently. #Acute UTI -UA in emergency department with 2+ leuks, 6-10 WBCs, 4+ bacteria -Ceftriaxone 1000mg IV Q24H #Anxiety - patient has been off of her Sertraline -Will restart Sertraline at 50mg po daily x 1 week then increase to 100mg daily #Hypothyroidism - markedly elevated TSH with undetectable T4, she is s/p thyroidectomy -Resume Synthroid -Followup TFTs outpatient #Hypertension -Continue Atenolol and Losartan #GERD -Continue Protonix 40mg po BID #Failure to thrive -PT/OT evaluation -Case management evaluation DVT prophylaxis: start Lovenox 40mg SQ Q24H Diet: Regular Disposition: continued stay on med/surg, needs eval with CM and determine d/c needs d/t possible deconditioning, patient agreeable to services and additional support from family to assist with medication management at home CODE STATUS: Admission and Anticipated Discharge Date Admission Date: March 19, 2025 Supervising Physician Co-Signing Physician Notes Attending Attestation - Chart reviewed, care plan d/w WILMAR Cole. I agree with the delaney components of her documentation. Markedly decompensated hypothyroidism - likely playing a very large role in her current health status. Jose Cruz Cartwright MD Subjective Patient sitting up in chair this am. States she came into hospital because she was getting mixed up with her medications at times and forgetting she took them. She reveals she is currently in a wheelchair while residing at home alone and is able to complete transfers to her bed and toilet independently. She does have a son that lives nearby and a cousin that helps her with activities of daily living. She states she has been in a wheelchair for the past three months as her legs have been weaker. She denies any falls over the course of the past 6 months. She currently denies urinary symptoms. Appetite has been good and she is hydrating adequately. Review of Systems Review of Systems: All systems reviewed & are unremarkable except as noted in Subjective Physical Exam Physical Exam: GENERAL APPEARANCE: A&O. Sitting comfortably in chair. NAD. SKIN: Normal color without rashes or lesions. Normal turgor. HEENT: Head AT/NC. Buccal mucosa is moist and pink. NECK: No jugular venous distention. No thyroid enlargement. There is no lymphadenopathy. HEART: RRR without m/g/r LUNGS: Normal inspiratory effort. CTA without w/r/r. ABDOMEN: No guarding or rigidity. Normoactive BS in all four quadrants. Abdomen soft and NT. MSK: No bony gross/deformities throughout. ROM intact. +4/5 MS of bilateral feet with intact sensation. EXTREMITIES: No edema, No peripheral cyanosis. Neuro: CN 2-12 grossly intact. No focal neuro deficits PSYCHIATRIC: Normal affect. Eye contact is good. Speech is normal rate and content. Responses are appropriate. Results & Data Results & Data Vital Signs (Past 12 Hours) Vital Signs Temp Pulse Resp BP Pulse Ox O2 Del Method 03/19/25 08:00 36.5 C 56 L 16 129/80 96 Room Air PG Care Time/CCT Total # of Minutes Spent Total Time Spent with Patient: Total time spent is greater than 50% in coordination of care (as documented) at patient's floor/unit and/or counseling patient: Coding Level of Care Code 81057 SUB INP/OBS CARE 2/35MIN Diagnoses Acute UTI (urinary tract infection) N39.0 Anxiety F41.9
[2025-03-19] MEDS: cefTRIAXone SODIUM 1,000 MG/50 ML BAG IV SCH (21:11)
[2025-03-20] MEDS: ENOXAPARIN INJ 40 MG/0.4 ML SYR SQ SCH (08:54)
--- NOTE | 2025-03-20 14:38 | Hospitalist Progress Note ---
Date of Service March 20, 2025 Assessment & Plan (1) Acute UTI (urinary tract infection): (2) Anxiety: Plan 89 y/o female presenting from home with concern for being unable to manage at home. She lives alone currently, has family that checks on her. Has not been taking her medications consistently. #Acute UTI -UA in emergency department with 2+ leuks, 6-10 WBCs, 4+ bacteria -Ceftriaxone 1000mg IV Q24H -culture not sent for reflex on arrival, in setting of intermittent confusion will continue to treat for 5 days total considering UA suspicious for UTI #Anxiety - patient has been off of her Sertraline -Will restart Sertraline at 50mg po daily x 1 week then increase to 100mg daily #Hypothyroidism - markedly elevated TSH with undetectable T4, she is s/p thyroidectomy -Resume Synthroid -Followup TFTs outpatient #Hypertension -Continue Atenolol and Losartan #GERD -Continue Protonix 40mg po BID #Failure to thrive -PT/OT evaluation -Case management evaluation DVT prophylaxis: start Lovenox 40mg SQ Q24H Diet: Regular Disposition: continued stay on med/surg, needs eval with CM and determine d/c needs d/t possible deconditioning, patient agreeable to HH services and additional support from family to assist with medication management at home CODE STATUS: Admission and Anticipated Discharge Date Admission Date: March 19, 2025 Supervising Physician Co-Signing Physician Notes Attending Attestation - Chart reviewed, care plan d/w WILMAR Cole. I agree with the delaney components of her documentation. JoseC ruz Cartwright MD Subjective Reports from nursing patient resistant to taking medication this am. She refused. Also refused am labs. This afternoon, patient agreeable to taking medication. Verbally expressed to patient it is highly recommended she take her Synthroid due to her most recent labwork. She is eating and drinking well per nursing. Review of Systems Review of Systems: All systems reviewed & are unremarkable except as noted in Subjective Physical Exam Physical Exam: GENERAL APPEARANCE: A&O. Sitting comfortably on stretcher. NAD. SKIN: Normal color without rashes or lesions. Normal turgor. HEENT: Head AT/NC. Buccal mucosa is moist and pink. NECK: No jugular venous distention. No thyroid enlargement. There is no lymphadenopathy. HEART: RRR without m/g/r LUNGS: Normal inspiratory effort. CTA without w/r/r ABDOMEN: No guarding or rigidity. Normoactive BS in all four quadrants. Abdomen soft and NT. MSK: No bony gross/deformities throughout. ROM intact. EXTREMITIES: No edema, No peripheral cyanosis. Neuro: Alert and oriented to person, place and year. Results & Data Results & Data Vital Signs (Past 12 Hours) Vital Signs Pulse Resp BP Pulse Ox O2 Del Method 03/20/25 07:51 61 18 148/88 H 91 Room Air PG Care Time/CCT Total # of Minutes Spent Total Time Spent with Patient: Total time spent is greater than 50% in coordination of care (as documented) at patient's floor/unit and/or counseling patient: Coding Level of Care Code 53717 SUB INP/OBS CARE 2/35MIN Diagnoses Acute UTI (urinary tract infection) N39.0 Anxiety F41.9
[2025-03-20 18:32] LABS: Anion Gap 7.0 (3-11); Blood Urea Nitrogen 29.0 mg/dl (6-23); Calcium 9.3 mg/dl (8.6-10.3); Carbon Dioxide 25.0 mmol/L (21-32); Chloride 105.0 mmol/L (98-107); Creatinine Clr Calc Pharmacy 24.1 ml/min; Glucose 103.0 mg/dl (70-99(Fasting)); Potassium 3.6 mmol/L (3.5-5.1); Sodium 137.0 mmol/L (136-145)
[2025-03-20 21:36] LABS: Hematocrit (blood only) 31.0 % (37.0-47.0); Hemoglobin 10.3 g/dL (12.0-16.0); Mean Corpuscular Hemoglobin 29.8 pg (25.0-34.0); Mean Corpuscular Volume 89.6 fL (80.0-100.0); Platelet Count 227 K/uL (130-400); RDW Standard Deviation 53.1 fL (36.4-46.3); Red Blood Count 3.46 M/uL (4.20-5.40); White Blood Count 4.55 K/ul (4.8-10.8)
[2025-03-21] MEDS: LACTATED RINGER'S 1,000 ML IV SCH (09:01)
[2025-03-21 10:04] LABS: Hematocrit (blood only) 32.5 % (37.0-47.0); Hemoglobin 10.9 g/dL (12.0-16.0); Immature Granulocytes # (auto) 0.02 K/uL (0.01-0.20); Immature Granulocytes % (auto) 0.4 %; Mean Corpuscular Hemoglobin 29.8 pg (25.0-34.0); Mean Corpuscular Volume 88.8 fL (80.0-100.0); Platelet Count 227 K/uL (130-400); RDW Standard Deviation 52.3 fL (36.4-46.3); Red Blood Count 3.66 M/uL (4.20-5.40); White Blood Count 4.48 K/ul (4.8-10.8)
[2025-03-21 10:21] LABS: Anion Gap 7.0 (3-11); Blood Urea Nitrogen 26.0 mg/dl (6-23); Calcium 9.2 mg/dl (8.6-10.3); Carbon Dioxide 25.0 mmol/L (21-32); Chloride 104.0 mmol/L (98-107); Creatinine Clr Calc Pharmacy 27.2 ml/min; Glucose 136.0 mg/dl (70-99(Fasting)); Potassium 3.6 mmol/L (3.5-5.1); Sodium 136.0 mmol/L (136-145)
[2025-03-21] MEDS: INFLUENZA VACC TS2025-26(65y+)/PF (IIV3) 0.5mL Syr IM ONE (11:02)
--- NOTE | 2025-03-21 11:50 | Hospitalist Progress Note ---
Date of Service March 21, 2025 Assessment & Plan (1) Acute UTI (urinary tract infection): (2) Anxiety: Plan 89 y/o female presenting from home with concern for being unable to manage at home. She lives alone currently, has family that checks on her. Has not been taking her medications consistently. ##MOSES -patient had refused am labs on 03/20/25, labs drawn at 1803 on 03/20/25 with noted Cr at 1.48 -Cr 1.31 this am -hold ARB -LR 125ml/hr -trend Cr #Acute UTI -UA in emergency department with 2+ leuks, 6-10 WBCs, 4+ bacteria -Ceftriaxone 1000mg IV Q24H -culture not sent for reflex on arrival, in setting of intermittent confusion will continue to treat for 5 days total considering UA suspicious for UTI #Anxiety - patient has been off of her Sertraline -Will restart Sertraline at 50mg po daily x 1 week then increase to 100mg daily #Hypothyroidism - markedly elevated TSH with undetectable T4, she is s/p thyroidectomy -Resume Synthroid -Followup TFTs outpatient #Hypertension -Continue Atenolol, hold Losartan secondary to MOSES #GERD -Continue Protonix 40mg po BID #Failure to thrive -PT/OT evaluation with recommendation for rehab -Case management referral to [facility] DVT prophylaxis: Lovenox 40mg SQ Q24H Diet: Regular Disposition: continued stay on med/surg, d/c to [facility] for rehab Admission and Anticipated Discharge Date Admission Date: March 21, 2025 Subjective Patient is calm and cooperative this am. Per nursing she ate breakfast and took her morning medication. States she would like to go back home but is agreeable to short term rehab for strengthening. Review of Systems Review of Systems: All systems reviewed & are unremarkable except as noted in Subjective Physical Exam Physical Exam: GENERAL APPEARANCE: A&O. Sitting in chair. NAD. SKIN: Normal color without rashes or lesions. Normal turgor. HEENT: Head AT/NC. Buccal mucosa is moist and pink. NECK: No jugular venous distention. No thyroid enlargement. There is no lymphadenopathy. HEART: RRR without m/g/r LUNGS: Normal inspiratory effort. CTA without w/r/r ABDOMEN: No guarding or rigidity. Normoactive BS in all four quadrants. Abdomen soft and NT. MSK: No bony gross/deformities throughout. ROM intact. EXTREMITIES: No edema, No peripheral cyanosis. Neuro: Alert and oriented to person, place and year. Results & Data Results & Data Vital Signs (Past 12 Hours) Vital Signs Temp Pulse Resp BP Pulse Ox O2 Del Method 03/21/25 07:16 36.8 C 65 16 112/66 94 Room Air 03/20/25 23:45 36.8 C 75 16 118/66 95 Room Air PG Care Time/CCT Total # of Minutes Spent Total Time Spent with Patient: Total time spent is greater than 50% in coordination of care (as documented) at patient's floor/unit and/or counseling patient: Coding Level of Care Code 56474 SUB INP/OBS CARE 235MIN Diagnoses Acute UTI (urinary tract infection) N39.0 Anxiety F41.9
[2025-03-21] MEDS: diphenhydrAMINE Capsule 25 MG CAP PO ONE (20:06)
[2025-03-22] MEDS: ENOXAPARIN INJ 30 MG/0.3 ML SYR SQ SCH (08:23)
--- NOTE | 2025-03-22 13:44 | Hospitalist Progress Note ---
Date of Service March 22, 2025 Assessment & Plan (1) Acute UTI (urinary tract infection): (2) Anxiety: Plan 89 y/o female presenting from home with concern for being unable to manage at home. She lives alone currently, has family that checks on her. Has not been taking her medications consistently. ##MOSES -patient had refused am labs on 03/20/25, labs drawn at 1803 on 03/20/25 with noted Cr at 1.48, Cr 1.31 on 03/21/25 -hold ARB -trend Cr, encouraged nursing to attempt lab drawn for patient #Acute UTI -UA in emergency department with 2+ leuks, 6-10 WBCs, 4+ bacteria -Ceftriaxone 1000mg IV Q24H -culture not sent for reflex on arrival, in setting of intermittent confusion patient did receive three doses of IV Rocephin #Anxiety - patient has been off of her Sertraline -Will restart Sertraline at 50mg po daily x 1 week then increase to 100mg daily #Hypothyroidism - markedly elevated TSH with undetectable T4, she is s/p thyroidectomy -Resume Synthroid -Followup TFTs outpatient #Hypertension -Continue Atenolol, hold Losartan secondary to MOSES #GERD -Continue Protonix 40mg po BID #Failure to thrive -PT/OT evaluation with recommendation for rehab -Case management referral to [facility] DVT prophylaxis: Lovenox 40mg SQ Q24H Diet: Regular Disposition: continued stay on med/surg, d/c to [facility] for rehab Admission and Anticipated Discharge Date Admission Date: March 21, 2025 Subjective Patient resting in bed this morning. Opens eyes to name being called. She is without confusion this am and states she will go to rehab. Reports from nursing she has been removing IV access which has not enabled her to receive IV fluids ordered yesterday due to increasing creatinine. She did receive three dose of IV Ceftriaxone for UTI. She is eating well, drinking well and slept well last night. She continues to have periodic delirium and per her son this has happened in the past with hospitalization. Review of Systems Review of Systems: All systems reviewed & are unremarkable except as noted in Subjective Physical Exam Physical Exam: GENERAL APPEARANCE: A&O. Sitting comfortably in bed. NAD. SKIN: Normal color without rashes or lesions. Normal turgor. HEENT: Head AT/NC. Buccal mucosa is moist and pink. NECK: No jugular venous distention. No thyroid enlargement. There is no lymphadenopathy. HEART: RRR without m/g/r LUNGS: Normal inspiratory effort. CTA without w/r/r. ABDOMEN: No guarding or rigidity. Normoactive BS in all four quadrants. Abdomen soft and NT. MSK: No bony gross/deformities throughout. ROM intact. EXTREMITIES: No edema, No peripheral cyanosis. Neuro: CN 2-12 grossly intact. No focal neuro deficits PSYCHIATRIC: Normal affect. Eye contact is good. Speech is normal rate and content. Responses are appropriate. Results & Data Results & Data Vital Signs (Past 12 Hours) Vital Signs Temp Pulse Resp BP Pulse Ox O2 Del Method 03/22/25 08:40 36.6 C 58 L 18 156/91 H 94 Room Air Laboratory Results No labs reviewed PG Care Time/CCT Total # of Minutes Spent Total Time Spent with Patient: Total time spent is greater than 50% in coordination of care (as documented) at patient's floor/unit and/or counseling patient: Coding Level of Care Code 90915 SUB INP/OBS CARE 2/35MIN Diagnoses Acute UTI (urinary tract infection) N39.0 Anxiety F41.9
[2025-03-22 14:45] LABS: Hematocrit (blood only) 34.4 % (37.0-47.0); Hemoglobin 11.5 g/dL (12.0-16.0); Immature Granulocytes # (auto) 0.01 K/uL (0.01-0.20); Immature Granulocytes % (auto) 0.2 %; Mean Corpuscular Hemoglobin 29.8 pg (25.0-34.0); Mean Corpuscular Volume 89.1 fL (80.0-100.0); Platelet Count 233 K/uL (130-400); RDW Standard Deviation 51.9 fL (36.4-46.3); Red Blood Count 3.86 M/uL (4.20-5.40); White Blood Count 4.38 K/ul (4.8-10.8)
[2025-03-22 15:07] LABS: Anion Gap 5.0 (3-11); Blood Urea Nitrogen 22.0 mg/dl (6-23); Calcium 9.0 mg/dl (8.6-10.3); Carbon Dioxide 27.0 mmol/L (21-32); Chloride 105.0 mmol/L (98-107); Creatinine Clr Calc Pharmacy 35.3 ml/min; Glucose 94.0 mg/dl (70-99(Fasting)); Potassium 3.9 mmol/L (3.5-5.1); Sodium 137.0 mmol/L (136-145)
[2025-03-23 08:00] VITALS: BP 118/64; RESP 14; TEMP 97.7
[2025-03-23 11:49] VITALS: PULSE 72; O2SAT 97
--- NOTE | 2025-03-23 16:18 | Discharge Summary ---
Discharge Summary Date of Service March 23, 2025 Principal Dx & Hospital Course #1 = Principal Diagnosis (1) Acute UTI (urinary tract infection): (2) Anxiety: Plan 89 y/o female presenting from home with concern for being unable to manage at home. She lives alone currently, has family that checks on her. Has not been taking her medications consistently. Patient had transient delirium while hospitalized that completely resolved on day of discharge. She received 3 doses of IV Rocephin for suspected UTI. Her creatinine normalized post IVF hydration. Favorable oral fluid and food intake on d/c. ##MOSES -resolved on d/c with Cr 1.10, patient hydrating adequately on d/c #Acute UTI -UA in emergency department with 2+ leuks, 6-10 WBCs, 4+ bacteria -Ceftriaxone 1000mg IV Q24H -culture not sent for reflex on arrival, in setting of intermittent confusion patient did receive three doses of IV Rocephin #Anxiety - patient has been off of her Sertraline -sertraline restarted at 50mg, to continue 50mg dosing to 03/25 then transition to 100mg dosing #Hypothyroidism - markedly elevated TSH with undetectable T4, she is s/p thyroidectomy -resume -Followup TFTs outpatient #Hypertension -Continue Atenolol, resumption of Losartan on d/c #GERD -Protonix 40mg po BID #Failure to thrive -d/c to inpatient rehab Disp0: D/C to [facility] for rehab Notes For Next Care Provider Patient needs f/u TFTs as TSH was markedly elevated on arrival to hospital-->>>[phone] Patient restarted on Zoloft regimen at 50mg daily to date of 03/25, then 100mg thereafter Medication Changes From Visit Resumption of Zoloft prescription as previously prescribed Admission HPI Per Admitting Provider Kathiajim Burnett is a pleasant 89yo female with history of HTN, HLP presenting from home with concern for being unable to manage at home alone. Patient lives by herself. Has family that resides nearby and checks on her. However, recently she feels that she has been alone more often. She does not take her medications. She does not cook anymore but states that she tries to eat cold things that don't need to be cooked. Increased fatigue, weakness and some anxiety about being alone in her home. Occasional pain in her legs otherwise no complaints. Discharge Exam GENERAL APPEARANCE: A&OX3. Sitting up in chair.. NAD. SKIN: Normal color without rashes or lesions. Normal turgor. HEENT: Head AT/NC. Buccal mucosa is moist and pink. NECK: No jugular venous distention. No thyroid enlargement. There is no lymphadenopathy. HEART: RRR without m/g/r LUNGS: Normal inspiratory effort. CTA without w/r/r. ABDOMEN: No guarding or rigidity. Normoactive BS in all four quadrants. Abdomen soft and NT. MSK: No bony gross/deformities throughout. ROM intact. EXTREMITIES: No edema, No peripheral cyanosis. Neuro: CN 2-12 grossly intact. No focal neuro deficits PSYCHIATRIC: Normal affect. Eye contact is good. Speech is normal rate and content. Responses are appropriate. Discharge Plan Discharge Items Patient Disposition: Transfer [facility] Reason For Visit: FAILURE TO THRIVE AT HOME Discharge Diagnosis: UTI, anxiety, hypothyroidism Condition on Discharge: Good Activity: Resume your previous activity Activity Comment: You will continue PT when you are transferred to rehab Weightbearing: Full weightbearing Non-emergency contact: Primary Care Provider Call non-emergency contact if: you have any medication questions, your symptoms worsen and your pain is unusual for you Follow-up/Referrals: Jasbir Cason, [Primary Care Provider] - Diet: Regular Addtl Attending Provider Instructions: Kathia, You were admitted to the hospital for a urinary tract infection and concerns related to your strength at home. You received three doses of IV antibiotic to treat your infection. You were started back on your Synthroid as your lab work revealed you have not taken this medication in quite some time. You were started back on your Zoloft as you have a history of anxiety. You are to continue Zoloft 50mg daily through 03/25/25, then you are you to increase your dose to 100mg daily thereafter. Your blood pressure medication was held during your stay as you were slightly dehydrated and your kidney lab numbers have normalized, therefore you can resume your medication on discharge. Medications: Your medication list has been reviewed and reconciled upon discharge to ensure accuracy and continuity of care. An updated list of all your medications is included with your hospital discharge paperwork. Please review this list closely, and make note of any changes. Take your medications as instructed; do not skip a dose of your medicines. Make sure all of your doctors know every medicine you are taking (including fhtd-[id number]-[id number] medicines, vitamins, and supplements). Call your primary care provider before taking any new medicines (including over- the-counter medicines, vitamins, and supplements), because some of these may interact with your current medications, or may make your symptoms worse. Tell your primary care provider if you cannot afford your medications. Activity: You can do normal everyday activities as your body allows. Take rest breaks if you feel tired. Do not overexert. Stop activity if you have pain, shortness of breath or feel dizzy. Follow-up appointments: Make an appointment with your primary care physician within one week of discharge. A copy of this summary will be sent to them. Every time you see your primary care physician, or any other doctor, bring your medication list, and a list of questions. CONTACT YOUR PRIMARY CARE PROVIDER if you experience any of the following: Shortness of breath or difficulty breathing Fevers or chills Feeling tired with normal activity or experiencing dizziness or fainting Difficulty following your treatment plan, or difficulty taking medications CALL 911 OR GO TO THE EMERGENCY DEPARTMENT if you experience any of the following: Severe abdominal pain or nausea/vomiting Severe chest pain, or chest pain that radiates (moves) to your jaw or arm Sudden, severe shortness of breath or difficulty breathing Thank you for allowing us to participate in your care. Pending Studies at Discharge: No Stand-Alone Forms: My [facility] Skilled Items Patient informed of condition?: Yes DNR: No Discharge Level of Care: Skilled Communicable Disease: No Discharge Prognosis: Stable Lines: None Urinary Catheter: No Medications and DC Order Prescriptions: Continued pantoprazole 40 mg Tablet,Delayed Release (Dr/Ec) 40 mg PO BID Rx Instructions: 07/14/22 PT HAS NOT TAKEN THIS MED FOR APPROX 7 MONTHS DUE TO LACK OF RESOURCES FOR GETTING TO SEE HER PRIMARY PHYSICIAN AND REFILLING THE PRESCRIPTION. atenolol 25 mg tablet 25 mg PO DAILY Rx Instructions: 07/15/23 PT HAS NOT TAKEN THIS MED FOR APPROX 8 MONTHS DUE TO LACK OF RESOURCES FOR SEEING HER PRIMARY PHYSICIAN AND OBTAINING THE PRESCRIPTION. losartan 25 mg tablet 25 mg PO QAM Rx Instructions: 07/15/23 PT HAS NOT TAKEN THIS MED FOR APPROX 7 MONTHS DUE TO LACKNOF RESOURCES FOR GETTING TO SEE HER PRIMARY PHYSICIAN AND REFILLING THE PRESCRIPTION. sertraline 100 mg tablet 100 mg PO QAM Rx Instructions: 07/15/23 PT HAS NOT TAKEN THIS MED FOR APPROX 7 MONTHS DUE TO A LACK OF RESOURCES IN GETTING TO SEE HER PRIMARY PHYSICIAN AND REFILLING THE PRESCRIPTION. acetaminophen [Tylenol Extra Strength] 500 mg Tablet 1,000 mg PO Q8 PRN (Reason: fever or pain) Qty: 30 0RF famotidine [[employer] (famotidine)] 10 mg Tablet 10 mg PO BID PRN (Reason: heartburn) Qty: 30 0RF aspirin 81 mg Tablet,Delayed Release (Dr/Ec) 81 mg PO DAILY Qty: 30 0RF amoxicillin-pot clavulanate 875-125 mg Tablet 1 tab PO BIDM Qty: 3 0RF levothyroxine 112 mcg Tablet 112 mcg PO DAILYBB Rx Instructions: 07/15/23 PT HAS NOT TAKEN THIS MED FOR APPROX 7 MONTHS DUE TO LACK OF RESOURCES FOR GETTING TO SEE HER PRIMARY PHYSICIAN AND REFILLING THE PRESCRIPTION. cholecalciferol (vitamin D3) 25 mcg (1,000 unit) Capsule 25 mcg PO QAM Qty: 30 0RF Discharge Orders: Discharge Order (Routine); Ordered 03/23/25 Ordered By: Grecia Cole Admission Data Admit Date/Time: 03/21/25 07:54 Attending Provider: Jace Galarza Admit Provider: Teena Victor Primary Care Provider: Jasbir Cason Other Providers: Teena Victor; Sorin Rowell Other Interventions: Discharge Summary Assessment (RN) Last Done: 03/23/25 13:01 Hospital Stay Data Consultations 03/19/25 00:00 ED Decision to Admit Stat Pending Results Patient Have Any Pending Studies at Discharge: No Discharge Instructions Given to Patient (Per Discharging Provider) Kathia, You were admitted to the hospital for a urinary tract infection and concerns related to your strength at home. You received three doses of IV antibiotic to treat your infection. You were started back on your Synthroid as your lab work revealed you have not taken this medication in quite some time. You were started back on your Zoloft as you have a history of anxiety. You are to continue Zoloft 50mg daily through 03/25/25, then you are you to increase your dose to 100mg daily thereafter. Your blood pressure medication was held during your stay as you were slightly dehydrated and your kidney lab numbers have normalized, therefore you can resume your medication on discharge. Medications: Your medication list has been reviewed and reconciled upon discharge to ensure accuracy and continuity of care. An updated list of all your medications is included with your hospital discharge paperwork. Please review this list closely, and make note of any changes. Take your medications as instructed; do not skip a dose of your medicines. Make sure all of your doctors know every medicine you are taking (including [id number]-bzb-[id number] medicines, vitamins, and supplements). Call your primary care provider before taking any new medicines (including over- the-counter medicines, vitamins, and supplements), because some of these may interact with your current medications, or may make your symptoms worse. Tell your primary care provider if you cannot afford your medications. Activity: You can do normal everyday activities as your body allows. Take rest breaks if you feel tired. Do not overexert. Stop activity if you have pain, shortness of breath or feel dizzy. Follow-up appointments: Make an appointment with your primary care physician within one week of discharge. A copy of this summary will be sent to them. Every time you see your primary care physician, or any other doctor, bring your medication list, and a list of questions. CONTACT YOUR PRIMARY CARE PROVIDER if you experience any of the following: Shortness of breath or difficulty breathing Fevers or chills Feeling tired with normal activity or experiencing dizziness or fainting Difficulty following your treatment plan, or difficulty taking medications CALL 911 OR GO TO THE EMERGENCY DEPARTMENT if you experience any of the following: Severe abdominal pain or nausea/vomiting Severe chest pain, or chest pain that radiates (moves) to your jaw or arm Sudden, severe shortness of breath or difficulty breathing Thank you for allowing us to participate in your care. Total Time Total Time Spent Total Time Spent (In Minutes): I spent a total of 40 minutes on the date of service in review of patient's record, and previously obtained information in person and appropriate medical visit, discussion and education of plan, with patient and/or caregiver, placing orders for tests/referral/procedures as medically necessary and documentation of pertinent clinical information in patient's medical records for their visit today. Coding Level of Care Code 93354 INP/OBS DISCH >30 MIN Diagnoses Acute UTI (urinary tract infection) N39.0 Anxiety F41.9
[2025-03-26] MEDS ORDERED: SERTRALINE HCL 100 MG TABLET PO SCH (09:00)
== END 2025-03-23 13:36 | DRG 690 ==
LOC: 3E 18:57 → ED 18:57 → SUATTDRO 03-19 00:28 → 3E 03-19 01:39